=== PATIENT | male | born 1955 | race Caucasian/White ===

== ENCOUNTER 2020-05-16 10:40 | Inpatient (IN) ==
--- NOTE | 2020-04-18 14:32 | PAT Medication Instructions ---
Medication Instructions Date of Service April 18, 2020 Home Medications clopidogrel [Plavix] 75 mg PO QAM budesonide-formoterol [Symbicort] 2 puff INHALATION BID finasteride [Proscar] 5 mg PO QAM morphine 30 mg PO BID oxycodone 5 mg PO BID PRN sertraline [Zoloft] 200 mg PO QAM Spiriva with HandiHaler 1 cap INHALATION QAM albuterol sulfate 2.5 mg INHALATION QID PRN albuterol sulfate [Proventil HFA] 2 puff INHALATION Q6H PRN atorvastatin 80 mg PO QAM buspirone 10 mg PO BID ferrous sulfate 325 mg PO Q OTHER DAY omeprazole 20 mg PO QAM theophylline 400 mg PO BID carvedilol 12.5 mg PO BID epinephrine 0.3 mg IM UD PRN food supplemt, lactose-reduced [Ensure] 1 ea PO BID hydrochlorothiazide 25 mg PO QAM nitroglycerin 0.4 mg SUBLINGUAL UD PRN prednisone 40 mg PO UD PRN Continue as directed epinephrine 0.3 mg IM UD PRN (if needed) nitroglycerin 0.4 mg SUBLINGUAL UD PRN (if needed) ASK your prescriber and surgeon clopidogrel [Plavix] 75 mg PO QAM DO NOT take the morning of surgery ferrous sulfate 325 mg PO Q OTHER DAY food supplemt, lactose-reduced [Ensure] 1 ea PO BID hydrochlorothiazide 25 mg PO QAM theophylline 400 mg PO BID Take morning of surgery With a small sip of water, OTHERWISE NOTHING TO EAT OR DRINK AFTER MIDNIGHT: budesonide-formoterol [Symbicort] 2 puff INHALATION BID finasteride [Proscar] 5 mg PO QAM morphine 30 mg PO BID (okay to take up to 4 hours prior to surgery if needed) oxycodone 5 mg PO BID PRN (okay to take up to 4 hours prior to surgery if needed) sertraline [Zoloft] 200 mg PO QAM Spiriva with HandiHaler 1 cap INHALATION QAM albuterol sulfate 2.5 mg INHALATION QID PRN (if needed) albuterol sulfate [Proventil HFA] 2 puff INHALATION Q6H PRN (if needed) atorvastatin 80 mg PO QAM buspirone 10 mg PO BID omeprazole 20 mg PO QAM carvedilol 12.5 mg PO BID prednisone 40 mg PO UD PRN (if needed) Take evening before surgery budesonide-formoterol [Symbicort] 2 puff INHALATION BID morphine 30 mg PO BID oxycodone 5 mg PO BID PRN (if needed) albuterol sulfate 2.5 mg INHALATION QID PRN (if needed) albuterol sulfate [Proventil HFA] 2 puff INHALATION Q6H PRN (if needed) buspirone 10 mg PO BID theophylline 400 mg PO BID carvedilol 12.5 mg PO BID food supplemt, lactose-reduced [Ensure] 1 ea PO BID prednisone 40 mg PO UD PRN (if needed) Other Notes If you have any questions please call us at [phone] or [phone] or [phone] or [phone]
--- NOTE | 2020-04-21 11:00 | Anesthesiology Consultation ---
Date of Service April 21, 2020 Assessment & Plan (1) Encounter for pre-operative examination: Chart Review Chart Review: Acceptable Risk for Surgery (pending preop Covid testing ) and Patient seen in Pre Admission Testing Per PAT appt on 04/21/20, pt resides in [facility]. No recent travel. Educated patient to follow up with surgeon's office regarding Covid testing. Educated on importance of self quarantining, social distancing and wearing mask in public both for the patient and household contacts. Teaching & Discussion Pre-Anesthesia Teaching/Discussion Notes: Instructed NPO after midnight before surgery,except medications with 15 cc of water. Medication instructions provided according to the PAT guidelines. History Surgery Operation Date: 05/16/20 10:40 Proposed Procedures p Right Reverse Total Shoulder Arthroplasty - Rah Oglesby DO Height/Weight Height: 5 ft 6 in Weight: 66.9 kg Allergies Allergy/AdvReac Type Severity Reaction Status Date / Time NSAIDS (Non-Steroidal Allergy Intermediate Hives Verified 04/18/20 09:14 Anti-Inflamma aspirin Allergy Mild RASH,HIVES Verified 04/18/20 09:14 Medications Home Medications Medication Instructions Recorded Confirmed Last Taken clopidogrel [Plavix] 75 mg PO QAM #0 03/26/11 04/18/20 01/26/19 budesonide-formoterol [Symbicort] 2 puff INHALATION BID #0 inhaler 06/05/14 04/18/20 02/01/19 finasteride [Proscar] 5 mg PO QAM #0 tab 06/05/14 04/18/20 02/01/19 morphine 30 mg PO BID 30 Days #0 tab 06/04/15 04/18/20 Unknown oxycodone 5 mg PO BID PRN #0 06/04/15 04/18/20 Unknown sertraline [Zoloft] 200 mg PO QAM 90 Days #90 tab 06/04/15 04/18/20 02/01/19 Spiriva with HandiHaler 1 cap INHALATION QAM 30 Days #30 02/03/18 04/18/20 02/01/19 cap albuterol sulfate 2.5 mg INHALATION QID PRN #0 dose 02/03/18 04/18/20 Unknown albuterol sulfate [Proventil HFA] 2 puff INHALATION Q6H PRN 01/16/19 04/18/2019 atorvastatin 80 mg PO QAM 01/16/19 04/18/20 01/31/19 buspirone 10 mg PO BID 01/16/19 04/18/20 01/31/19 ferrous sulfate 325 mg PO Q OTHER DAY 01/16/19 04/18/20 01/31/19 omeprazole 20 mg PO QAM 01/16/19 04/18/20 02/01/19 theophylline 400 mg PO BID 01/16/19 04/18/20 02/01/19 carvedilol 12.5 mg PO BID 04/18/20 04/18/20 Unknown epinephrine 0.3 mg IM UD PRN 04/18/20 04/18/20 Unknown food supplemt, lactose-reduced 1 ea PO BID 04/18/20 04/18/20 Unknown [Ensure] hydrochlorothiazide 25 mg PO QAM 04/18/20 04/18/20 Unknown nitroglycerin 0.4 mg SUBLINGUAL UD PRN 04/18/20 04/18/20 Unknown prednisone 40 mg PO UD PRN 04/18/20 04/18/20 Unknown Past Medical History Medical History (Updated 04/21/20 @ 11:21 by VARGHESE TheodoreC) Anxiety and depression Aortic valve defect Had AVR secondary to AR per patient "HAS MINIMAL LEAKING FROM PROSTHETIC COW AORTIC VALVE" Asthma Well controlled - inhalers daily and prn BPH (benign prostatic hyperplasia) Chronic obstructive pulmonary disease Deep vein thrombosis RT ARM 2018 (TREATED WITH ELIQUIS)- on AC x 6 months- then d/c'ed- no issues since. Did follow with heme- no known clotting issues - felt secondary to A-port- A port removed. GERD (gastroesophageal reflux disease) Well controlled and stable Hearing deficit Hyperlipidemia Hypertension Immunoglobulin G deficiency infusions monthly Lung nodules Following with pulm- getting repeat CT to monitor nodules 07/2020. Pulmonary embolism DX IN 2009 PVD (peripheral vascular disease) S/p angioplasties. On Plavix- cannot tolerate ASA Sleep apnea No longer needs CPAP- was retested Exercise / Class Metabolic Activity III < 4 Walking/Shop/Light housework (one flight of stairs - no chest pain, mild SOB) Past Family History Family History Father Family history of diabetes mellitus Other No family history of adverse response to anesthesia Past Surgical History Surgical History (Updated 04/21/20 @ 10:57 by Pattie Beach PA-C) History of angioplasty LEs and hand History of aortic valve replacement 2009 @ [facility] "currently failing at 50%"--follows with Dr. Ji in [place] History of bronchoscopy History of cholecystectomy History of colonoscopy History of esophagogastroduodenoscopy (EGD) History of phacoemulsification of cataract of both eyes with intraocular lens implantation History of right inguinal hernia repair History of umbilical hernia repair History of vascular access device PORT INSERTION/REMOVAL (DOES NOT HAVE CURRENTLY) Past Anesthesia History No Hx of Anesthesia Complications and No Family Hx of Anesthesia Complications History of PONV No Hx of PONV and No Hx of Motion Sickness Social History Smoking Status: Former smoker Do You Dip or Chew Tobacco: No Smoking End Date: 2009 Hx Alcohol Use: No Hx Substance Use: No substance use type: does not use Review of Systems Patient denies chest pain, shortness of breath, dyspnea on mild exertion, cough, wheezing, palpitations. No hx of seizures, stroke, OH. No hx of blood clots or blood transfusions Physical Exam Vital Signs VITALS BP 130/66 P 60 TEMP 98.0 SP02 93% RESP 18 Constitutional no acute distress ENMT Mouth: no TMJ clicking Thyromental Distance: > or= 3.5 Finger Breadths (3.5) Mallampati Class: II Full set dentures upper and lower Neck neck extension not limited Respiratory normal respiratory effort; no respiratory distress Auscultation: lungs clear to auscultation bilaterally, + diminished lung sounds (throughout ) and + wheezes (mild/throughout/expiratory ) Cardiovascular Rate/Rhythm: regular rate and regular rhythm Heart Sounds: + murmur (III/ systolic ) Vessels: no carotid bruit Musculoskeletal Spine: no pain with cervical ROM Neurologic moves all extremities Psychiatric Orientation: alert Testing Laboratory Results 04/21/20 11:10 04/21/20 11:10 PT 10.1 Seconds (9.0-12.0) 04/21/20 11:10 INR 1.0 (0.9-1.1) 04/21/20 11:10 APTT 26.0 Seconds (21.0-31.0) 04/21/20 11:10 Blood Type O Positive 04/21/20 11:10 Antibody Screen NEGATIVE 04/21/20 11:10 Electrocardiogram Date: 04/21/20 Findings: + SB @ (59) LAFB, RBBB. Compared to EKG from April 28, 2018- no significant change per cardio. Chest X-Ray Date: 04/21/20 Findings: + NAD Emphysematous change with no active disease in the chest. Echocardiogram Date: 08/16/19 Bioprosthetic aortic valve. Prosthetic aortic valve is well-seated. No redundant suture material (reported on TTE at L2 98) was seen on the study. There are 2 paravalvular jets of AR1 trace in 1 trace to mild. The confluence and LVOT gives impression of more severe AR. Overall AR severity not more than mild. ZAIDA by plannimetry was 1.6 cm. Overall normal functioning aortic prosthesis. Pulmonary venous flow indicative of normal LV myocardial compliance. Stress Test Date: 04/19/19 Stress EKG non diagnostic. Based on nuclear imaging there is inferior wall ischemia. Study is moderately abnormal (pt has subsequent cardiac catherization) Cardiac Catheterization Date: 05/15/19 LM=no significant disease LAD= 30% Cx= mild luminal irregularities RCA= 30% Assessment- mild nonobstructive CAD. Recommended medical therapy for prevention. Other Testing Chest CT 02/12/20= diffuse emphysematous changes redemonstrated in both lungs. Stable appearing micronodules redemonstrated in both lungs. Pleural-parenchymal fibronodular densities present to the left lingula, new finding. It may be related to inflammation/infection. Three-month follow-up is recommended. Focal fiber nodule density demonstrated the base of the left lingula, no change. Persistent pleuroparenchymal fibrosis scattered in the left retrocardiac area and at both lung bases. Hilar lymph node calcifications redemonstrated. Coronary artery calcifications.
--- NOTE | 2020-04-21 11:54 | XRay Report ---
TWO VIEW CHEST CLINICAL HISTORY: Preoperative examination. FINDINGS: PA and lateral chest radiographs are compared to chest x-ray and chest CT dated 04/28/2018. The patient is status post midline sternotomy and cardiac valve surgery. The heart is top normal for projection noting atherosclerotic calcification of the thoracic aorta. Emphysema and chronic intersti tial thickening are similar to previous. There is mild bibasilar scarring/atelectasis. No airspace co nsolidation or pleural effusion is identified. There is no pneumothorax. The skeletal structures appe ar osteopenic. The bony thorax appears intact. IMPRESSION: Emphysematous change with no active disease in the chest. ACT 112: Negative or not required by law. Electronically signed by: Rc Hitchcock M.D. 04/21/2020 11:53 AM
[2020-04-21 12:27] LABS: Basophils # (auto) 0.04 K/uL (0-0.2); Basophils % (auto) 0.8 %; Eosinophils # (auto) 0.21 K/uL (0-0.5); Eosinophils % (auto) 4.1 %; Hematocrit (blood only) 35.3 % (42-52); Hemoglobin 11.7 g/dL (14.0-18.0); Immature Granulocytes # (auto) 0.02 K/uL (0.00-0.02); Immature Granulocytes % (auto) 0.4 %; Lymphocytes # (auto) 0.58 K/uL (1.2-3.4); Lymphocytes % (auto) 11.4 %; Mean Corpuscular Hemoglobin 28.5 pg (25-34); Mean Corpuscular Hgb Conc 33.1 g/dL (32-36); Mean Corpuscular Volume 86.1 fL (80-100); Mean Platelet Volume 9.7 fL (7.4-10.4); Monocytes # (auto) 0.74 K/uL (0.11-0.59); Monocytes % (auto) 14.5 %; Neutrophils % (auto) 68.8 %; Platelet Count 257 K/uL (130-400); RDW Coefficient of Variation 15.7 % (11.5-14.5); RDW Standard Deviation 49.7 fL (36.4-46.3); White Blood Count 5.09 K/uL (4.8-10.8)
[2020-04-21 12:42] LABS: Partial Thromboplastin Ratio 0.9; Prothrombin Time 10.1 Seconds (9.0-12.0)
[2020-04-21 12:50] LABS: BUN Creatinine Ratio 23.1 (10-20); Calcium 9.8 mg/dl (8.5-10.1); Creatinine Clr Calc Pharmacy 86.3 ml/min; Est GFR (African American) 110.4; Est GFR (Non-African American) 95.2; Potassium 4.6 mmol/L (3.5-5.1)
--- NOTE | 2020-04-21 15:15 | Electrocardiogram Report ---
Test Reason : Blood Pressure : / mmHG Vent. Rate : 059 BPM Atrial Rate : 059 BPM P-R Int : 142 ms QRS Dur : 122 ms QT Int : 472 ms P-R-T Axes : 026 -69 041 degrees QTc Int : 467 ms Sinus bradycardia Left anterior fascicular block Right bundle branch block Abnormal ECG When compared with ECG of 28-APR-2018 11:33, No significant change was found Confirmed by Frandy Dominguez ([id number]) on 04/21/2020 3:15:03 PM Referred By: Rah Oglesby Confirmed By:Frandy Dominguez
--- NOTE | 2020-05-15 07:03 | History & Physical Report ---
Date of Service May 15, 2020 Assessment & Plan (1) Rotator cuff arthropathy of right shoulder: We will proceed with a right reverse shoulder arthroplasty. Postoperatively he will be placed in an arm sling and started back up on his Plavix. We will keep him overnight in the hospital for postoperative medical management. He plans to use home nursing agency set up through the [facility] upon discharge. Present on Admission?: Yes History of Present Illness Chief Complaint: Rotator cuff arthropathy of the right shoulder Primary Care Provider: Fanny Franks Wild is a pleasant 64-year-old male has been having a 2-year history of right shoulder pain and weakness. He initially fell 2 years ago. Is been treating it conservatively but is been getting much worse. It hurts him all the time. He is unable to do any activities above chest level. 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 After failing conservative treatment, he has elected to proceed with a right reverse shoulder arthroplasty. Allergies Allergy/AdvReac Type Severity Reaction Status Date / Time NSAIDS (Non-Steroidal Allergy Intermediate Hives Verified 04/18/20 09:14 Anti-Inflamma aspirin Allergy Mild RASH,HIVES Verified 04/18/20 09:14 Home Medications Home Medications Medication Instructions Recorded Confirmed Type clopidogrel [Plavix] 75 mg PO QAM #0 03/26/11 04/18/20 History budesonide-formoterol [Symbicort] 2 puff INHALATION BID #0 inhaler 06/05/14 04/18/20 History finasteride [Proscar] 5 mg PO QAM #0 tab 06/05/14 04/18/20 History morphine 30 mg PO BID 30 Days #0 tab 06/04/15 04/18/20 History oxycodone 5 mg PO BID PRN #0 06/04/15 04/18/20 History sertraline [Zoloft] 200 mg PO QAM 90 Days #90 tab 06/04/15 04/18/20 History Spiriva with HandiHaler 1 cap INHALATION QAM 30 Days #30 02/03/18 04/18/20 History cap albuterol sulfate 2.5 mg INHALATION QID PRN #0 dose 02/03/18 04/18/20 History albuterol sulfate [Proventil HFA] 2 puff INHALATION Q6H PRN 01/16/19 04/18/20 History atorvastatin 80 mg PO QAM 01/16/19 04/18/20 History buspirone 10 mg PO BID 01/16/19 04/18/20 History ferrous sulfate 325 mg PO Q OTHER DAY 01/16/19 04/18/20 History omeprazole 20 mg PO QAM 01/16/19 04/18/20 History theophylline 400 mg PO BID 01/16/19 04/18/20 History carvedilol 12.5 mg PO BID 04/18/20 04/18/20 History epinephrine 0.3 mg IM UD PRN 04/18/20 04/18/20 History food supplemt, lactose-reduced 1 ea PO BID 04/18/20 04/18/20 History [Ensure] hydrochlorothiazide 25 mg PO QAM 04/18/20 04/18/20 History nitroglycerin 0.4 mg SUBLINGUAL UD PRN 04/18/20 04/18/20 History prednisone 40 mg PO UD PRN 04/18/20 04/18/20 History Past Med/Surg History Medical History Anxiety and depression Aortic valve defect Had AVR secondary to AR per patient "HAS MINIMAL LEAKING FROM PROSTHETIC COW AORTIC VALVE" Asthma Well controlled - inhalers daily and prn BPH (benign prostatic hyperplasia) Chronic obstructive pulmonary disease Deep vein thrombosis RT ARM 2018 (TREATED WITH ELIQUIS)- on AC x 6 months- then d/c'ed- no issues since. Did follow with heme- no known clotting issues - felt secondary to A-port- A port removed. GERD (gastroesophageal reflux disease) Well controlled and stable Hearing deficit Hyperlipidemia Hypertension Immunoglobulin G deficiency infusions monthly Lung nodules Following with pulm- getting repeat CT to monitor nodules 07/2020. Pulmonary embolism DX IN 2009 PVD (peripheral vascular disease) S/p angioplasties. On Plavix- cannot tolerate ASA Sleep apnea No longer needs CPAP- was retested Surgical History History of angioplasty LEs and hand History of aortic valve replacement 2009 @ [facility] "currently failing at 50%"--follows with Dr. Ji in [place] History of bronchoscopy History of cholecystectomy History of colonoscopy History of esophagogastroduodenoscopy (EGD) History of phacoemulsification of cataract of both eyes with intraocular lens implantation History of right inguinal hernia repair History of umbilical hernia repair History of vascular access device PORT INSERTION/REMOVAL (DOES NOT HAVE CURRENTLY) Family History Father Family history of diabetes mellitus Other No family history of adverse response to anesthesia Social History Smoking Status: Former smoker Second Hand Exposure: Yes (parents smoked); Hx Alcohol Use: No Hx Substance Use: No Preferred Language: Bruneian Communication Ability: Effective 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 Purifier Operator Required: No Beliefs That Will Affect Care: None Current Living Situation: Spouse and Family Current Living Situation Comment: Lives with and son Feels Safe at Home: Yes Review of Systems Review of Systems: All systems reviewed & are unremarkable except as noted in HPI & below Physical Exam Constitutional: WD/WN, vitals as above Eyes: PERRL, conjunctivae normal, anicteric sclerae ENMT: external ear and nose normal, oropharynx normal Neck: trachea midline, no thyromegaly Respiratory: normal respiratory effort Cardiovascular: RRR, no murmur, no edema Gastrointestinal (Abdomen): normal bowel sounds, soft, nontender, no hepatosplenomegaly Musculoskeletal: Physical examination of the right shoulder reveals decreased range of motion and significant weakness. There is tenderness palpation along the anterior glenohumeral joint line. The right upper extremity is neurovascularly intact. Psychiatric: A+Ox3, euthymic affect Results & Data Results & Data ([facility]) Diagnostic Findings Radiographs of the right shoulder show some signs of osteoarthritis with blunting of the greater tuberosity and some superior migration of the humeral head on the glenoid. PG Care Time/CCT Total # of Minutes Spent Total Time Spent with Patient: Total time spent is greater than 50% in coor dination of care (as documented) at patient's floor/unit and/or counseling patient: Coding Level of Care Code 84934 Initial Inpt Care Lvl 2 Diagnoses Rotator cuff arthropathy of right shoulder M12.811
[~2020-05-16 10:40] MED LIST: ACETAMINOPHEN 500 MG TAB PO SCH; BUPIVACAINE 0.5 % 5 MG/1 ML PF 10ML VIAL ONE; CEFAZOLIN 2000MG 2,000 MG/15 ML SYR IV SCH; FAMOTIDINE 20 MG TAB PO SCH; GABAPENTIN 300 MG CAP PO SCH; LR 15ML/HR IV SCH; LR 60ML/HR IV SCH; ROPIVACAINE 0.5% HCL/PF 150 MG, BUPIVACAINE 0.5% MPF 30 ML, EPINEPHrine 30MG/30ML (OR U... INFIL SCH; TRANEXAMIC ACID 1,000 MG **IV Intra-op IV SCH; TRANEXAMIC ACID 1,000 MG **IV Pre-op IV SCH; [UNRECOGNIZED DRUG - REMARK] SCH; dexAMETHasone 4 MG TAB PO SCH
--- NOTE | 2020-05-16 10:53 | History & Physical Bridge Note ---
Date of Service May 16, 2020 History & Physical Bridge Note I have examined the patient, reviewed the History & Physical and in the interval since the performance of the History & Physical I have noted the following changes of clinical significance: no changes noted
[2020-05-16] MEDS ORDERED: fentaNYL citrate 100 MCG/2 ML VIAL ONE (10:56)
[2020-05-16] MEDS ORDERED: MIDAZOLAM HCL 1 MG/ML 2ML VIAL ONE (10:56)
[2020-05-16] MEDS ORDERED: ORTHO JOINT ANESTHETIC ONE (11:44)
[2020-05-16] MEDS ORDERED: BUPIVACAINE 0.25% 30 ML VIAL ONE (12:35)
[2020-05-16] MEDS ORDERED: ATROPINE SULFATE 0.1 MG/ML 10ML SYR IV PRN (12:36)
[2020-05-16] MEDS ORDERED: ePHEDrine sulfate 50 MG/ML AMP IV PRN (12:36)
[2020-05-16] MEDS ORDERED: PROMETHAZINE HCL 6.25 MG in SODIUM CHLORIDE 0.9% 50 ML IV PRN (12:36)
[2020-05-16] MEDS ORDERED: ONDANSETRON INJ 2 MG/ML 2 ML VIAL IV PRN ×2 (12:36→15:56)
[2020-05-16] MEDS ORDERED: fentaNYL citrate 100 MCG/2 ML VIAL IV PRN (12:36)
[2020-05-16] MEDS ORDERED: GLYCOPYRROLATE 0.2 MG/ML VIAL ONE (13:46)
[2020-05-16] MEDS ORDERED: ePHEDrine sulfate 50 MG/ML SYR ONE (13:46)
[2020-05-16] MEDS ORDERED: ONDANSETRON INJ 2 MG/ML 2 ML VIAL ONE (13:46)
[2020-05-16] MEDS ORDERED: PROPOFOL IV EMULSION 10 MG/ML 20 ML VIAL IV ONE (13:46)
[2020-05-16] MEDS ORDERED: NEOSTIGMINE METHYLSULFATE 5 MG/5 ML SYR ONE (13:46)
[2020-05-16] MEDS ORDERED: ROCURONIUM BROMIDE 10 MG/ML 5 ML VIAL IV ONE (13:46)
--- NOTE | 2020-05-16 14:07 | Operative Report ---
PG Post Operative Report Pre & Post Diagnosis Operation Date: 05/16/20 13:00 Pre-Op Diagnosis: Rotator cuff arthropathy of the right shoulder with tendinopathy of the long head of the biceps tendon Post-Op Diagnosis: Rotator cuff arthropathy of the right shoulder with tendinopathy of the long head of the biceps tendon I identified the patient and participated in the time-out.: Yes Procedure Operation Date: 05/16/20 13:00 Actual Procedures p Right Reverse Total Shoulder Arthroplasty with open biceps tenodesis as a distinct and separate procedure (modifier 59) (Right) - Rah Oglesby DO Surgeon Rah Oglesby DO Crowd Controller Rah Holden PAC Estimated Blood Loss 250 Findings Consistent with Post-Op Diagnosis Specimens Right humeral head Complications none Disposition Disposition: Recovery Room Indications Wild is a pleasant 64-year-old male who initially injured his shoulder about 2 years ago. He saw a different orthopedist at that time who MRI of his shoulder and showed a chronic retracted rotator cuff tear. He told him he would need a reverse shoulder replacement. He was able to live with the shoulder for the past 2 years. Unfortunately is gotten much worse. Current x-rays show superior migration of the humeral head on the glenoid. After failing conservative treatment, he has elected to proceed with a right reverse shoulder arthroplasty. Description of Procedure A CPT code modifier 59: The long head of the biceps tendon was enlarged and inflamed consistent with tendinopathy. A tenodesis was opted. This was a separate and distinct portion of the procedure. For these reasons, a CPT code modifier 59 will be added to this case. Implants used: I used a Biomet Comprehensive reverse total shoulder arthroplasty system with a size 13 press fit micro humeral stem, a +6 humeral tray and a standard humeral bearing, a 25 mm small augment baseplate with a 6.5 mm central screw and superior and inferior locking screws, and a size 40 mm eccentric glenosphere. Wild arrived at [facility] for the above procedure. He was seen in the preoperative holding area and the operative extremity was identified and signed. He was given a preoperative antibiotic, TXA, and an interscalene nerve block. He was taken back to the operating room, laid on table in supine position, and put under general anesthesia. He was then put into the beachchair position. The shoulder was then prepped and draped in sterile fashion. A timeout was done and the patient and the operative extremity was properly identified. A deltopectoral approach was used. Dissection was taken down through the fascia and the deltoid was retracted laterally and the conjoined tendon was retracted medially. The anterior shoulder was exposed. The biceps groove was opened up and the biceps tendon was examined extensively. The biceps tendon demonstrated enlargement and inflammatory changes consistent with longstanding inflammation in the context of osteoarthritis and cuff arthropathy. The long head of the biceps tendon was then tenodesed to the upper border of the pectoralis major. This was a separate and distinct portion of the procedure. The subscapularis was then directly released off the lesser tuberosity with a peel technique. The inferior capsule was released and the humeral head was dislocated. A canal finding reamer was sent down the center of the humeral canal. Sequential reaming up to a size 13 reamer was done. Off that reamer, a proximal humeral resection guide was placed. The proximal humerus was resected at 135 of inclination and 25 of retroversion. Osteophytes were then removed and the glenoid was exposed. Time was spent doing a complete capsular and labral release. The glenoid guide was then placed in the inferior aspect of the glenoid. A 3.2 mm Steinmann pin was then placed into the glenoid vault at 10 of inclination. The glenoid baseplate was then reamed. The final size 25 mm small augment baseplate was then impacted in the place. A 6.5 mm central screw was then placed followed by superior and inferior locking screws. A 40 mm eccentric glenosphere was then impacted into place. Surrounding soft tissues were then injected with 100 cc an orthopedic pain control cocktail. The proximal humerus was then exposed. Sequential broaching of the humerus up to a size 13 broach was done. Off that broach a +6 humeral tray was trialed. The shoulder was then reduced, brought through a full range of motion, and felt to be stable. The shoulder was then dislocated and the broach was removed. The final size 13 micro press-fit humeral stem was then impacted into place. A standard humeral bearing was then snapped onto a +6 humeral tray. The humeral tray was then impacted onto the humeral stem. The shoulder was once again reduced, brought through a full range of motion, and felt to be stable. The subscapularis was then tenodesed back to the lesser tuberosity with transosseous FiberWire sutures and side to side sutures with the arm in 45 of external rotation. A dilute betadyne lavage was then done for 3 minutes. The joint was then irrigated with normal saline solution. Hemostasis was obtained. The interval was closed with 2-0 Vicryl suture. The skin was then closed with 2-0 Vicryl and wali. A Silverlon dressing was placed and the arm was rested in a regular arm sling. He was then extubated and transferred to a hospital bed. He taken to the postanesthesia care unit in stable condition. He tolerated the procedure well. Rah Holden PA-C, was present for the entire procedure. He was critical for patient positioning, prepping, draping, retraction exposure, wound closure and application of sterile dressing. I attest to the content of the Intraoperative Record and any orders documented therein. Any exceptions are noted below.
--- NOTE | 2020-05-16 15:05 | XRay Report ---
XR shoulder RT min 2V routine CLINICAL HISTORY: Post shoulder surgery COMPARISON: Right shoulder radiographs February 03, 2018. FINDINGS: Alignment of the right shoulder arthroplasty is anatomic. There is no periprosthetic fract ure or unexpected radiopaque foreign body. There are skin wali. IMPRESSION: Expected findings following right shoulder arthroplasty. ACT 112: Negative or not required by law. Electronically signed by: Ghulam Franco M.D. 05/16/2020 3:03 PM
--- NOTE | 2020-05-16 15:06 | Anesthesiology Progress Note ---
Date of Service May 16, 2020 Anesthesia Post Procedure Vital Signs Vital Signs: Temp Pulse Pulse Resp BP Pulse Ox 05/16/20 15:00 72 13 155/73 H 98 05/16/20 14:50 81 13 170/81 H 95 05/16/20 14:40 80 14 169/87 H 100 05/16/20 14:30 36.1 C L 86 14 179/86 H 100 05/16/20 11:06 36.6 C 70 20 161/87 H 95 Transfer of Care Handoff Completed per policy Notes Mental Status: alert / awake / arousable Patient Amnestic to Procedure: Yes Nausea / Vomiting: adequately controlled Pain: adequately controlled Airway Patency, RR, SpO2: stable & adequate BP & HR: stable & adequate Hydration State: stable & adequate Anesthetic Complications: no major complications apparent Notes: block working well in pacu
[2020-05-16] MEDS ORDERED: ALBUTEROL HFA 8 GM INHALER INH PRN (15:56)
[2020-05-16] MEDS ORDERED: METOCLOPRAMIDE HCL INJ 5 MG/ML 2 ML VIAL IV PRN (15:56)
[2020-05-16] MEDS ORDERED: MAGNESIUM HYDROXIDE SUSP 30 ML UDC PO PRN (15:56)
[2020-05-16] MEDS ORDERED: NALOXONE HCL 0.4 MG/1 ML VIAL/CARP IV PRN (15:56)
[2020-05-16] MEDS ORDERED: predniSONE 20 MG TAB PO PRN (15:56)
[2020-05-16] MEDS ORDERED: NITROGLYCERIN SL 0.4 MG/TAB TAB SL PRN (15:56)
[2020-05-16] MEDS ORDERED: HYDROmorphone INJ 0.5 MG/0.5 ML SYR IV PRN (15:56)
[2020-05-16] MEDS ORDERED: OXYCODONE HCL IR 5 MG TAB (IMMEDIATE RELEASE) PO PRN (15:56)
[2020-05-16] MEDS ORDERED: EPINEPHRINE 0.3 MG IM PRN (15:56)
[2020-05-16] MEDS ORDERED: bisacodyL 10 MG SUPP PR PRN (15:56)
[2020-05-16] MEDS: ALBUTEROL 0.083% NEBU SOLN 3 ML VIAL INH PRN ×2 (16:40→19:49)
[2020-05-16] MEDS: SODIUM CHLORIDE 0.9% 1000ML 1,000 ML IV SCH (16:59)
[2020-05-16] MEDS: CEFAZOLIN 2000MG 2,000 MG/15 ML SYR IV SCH (20:40)
[2020-05-16] MEDS: THEOPHYLLINE 400 MG EXTENDED REL TAB PO SCH (20:48)
[2020-05-16] MEDS: carvediloL 12.5 MG TAB PO SCH (20:48)
[2020-05-16] MEDS: DOCUSATE SODIUM 100 MG CAP PO SCH (20:48)
[2020-05-16] MEDS ORDERED: SENNA 8.6 MG TAB PO SCH (21:00)
[2020-05-16] MEDS: ACETAMINOPHEN 500 MG TAB PO SCH (21:10)
[2020-05-17] MEDS: CEFAZOLIN 2000MG 2,000 MG/15 ML SYR IV SCH (03:11)
[2020-05-17] MEDS: SODIUM CHLORIDE 0.9% 1000ML 1,000 ML IV SCH (03:15)
[2020-05-17] MEDS: ALBUTEROL 0.083% NEBU SOLN 3 ML VIAL INH PRN (03:20)
[2020-05-17] MEDS: ACETAMINOPHEN 500 MG TAB PO SCH (06:00)
[2020-05-17 07:09] LABS: Basophils # (auto) 0.01 K/uL (0-0.2); Basophils % (auto) 0.1 %; Hematocrit (blood only) 31.4 % (42-52); Hemoglobin 10.5 g/dL (14.0-18.0); Immature Granulocytes # (auto) 0.02 K/uL (0.00-0.02); Immature Granulocytes % (auto) 0.3 %; Lymphocytes # (auto) 0.48 K/uL (1.2-3.4); Lymphocytes % (auto) 6.4 %; Mean Corpuscular Hemoglobin 28.5 pg (25-34); Mean Corpuscular Hgb Conc 33.4 g/dL (32-36); Mean Corpuscular Volume 85.3 fL (80-100); Mean Platelet Volume 9.1 fL (7.4-10.4); Monocytes # (auto) 0.78 K/uL (0.11-0.59); Monocytes % (auto) 10.4 %; Neutrophils # (auto) 6.23 K/uL (1.4-6.5); Neutrophils % (auto) 82.8 %; Platelet Count 204 K/uL (130-400); RDW Coefficient of Variation 15.4 % (11.5-14.5); RDW Standard Deviation 47.7 fL (36.4-46.3); Red Blood Count 3.68 M/uL (4.7-6.1); White Blood Count 7.52 K/uL (4.8-10.8)
[2020-05-17 07:21] VITALS: BP 124/66; TEMP 98.1; O2SAT 95
--- NOTE | 2020-05-17 07:29 | Orthopedic Progress Note ---
Date of Service May 17, 2020 Assessment & Plan (1) Status post reverse arthroplasty of right shoulder: Overall he is doing very well. He is not having any pain in the right shoulder. He will be seen by physical therapy this morning for ambulation and range of motion exercises. He can be discharged home later today. He will follow-up with orthopedics in 2 weeks. Present on Admission?: Yes Admission and Anticipated Discharge Date Admission Date: May 16, 2020 Tyler Rome was seen and examined at bedside this morning. Overall he is doing very well. Is not having any pain in the right shoulder. He was able to get some sleep last night. He has no complaints. Physical Exam Musculoskeletal: On physical examination of the right shoulder, the Silverlon dressing is clean and dry. He is wearing his sling as instructed. His radial, median, and ulnar nerves are checked intact at his wrist. Results & Data ([facility]) Vital Signs (Past 12 Hours) Vital Signs Temp Pulse Resp BP Pulse Ox 05/17/20 07:20 36.7 C 61 16 124/66 95 05/17/20 03:20 72 18 94 05/17/20 03:15 95 05/17/20 02:59 36.6 C 73 18 119/67 90 05/16/20 23:34 36.8 C 85 16 131/69 94 05/16/20 20:47 79 150/69 H 05/16/20 19:49 77 18 93 Laboratory Results H & H 04/21/20 05/17/20 Range/Units 11:10 06:55 Hgb 11.7 L 10.5 L (14.0-18.0) g/dL Hct 35.3 L 31.4 L (42-52) % Coagulation 04/21/20 Range/Units 11:10 INR 1.0 (0.9-1.1) Diagnostic Findings Postoperative x-rays of the right shoulder show the prosthesis to be in anatomic alignment without any evidence of fracture, dislocation, or loosening. PG Care Time/CCT Total # of Minutes Spent Total Time Spent with Patient: Total time spent is greater than 50% in coordination of care (as documented) at patient's floor/unit and/or counseling patient: Coding Level of Care Code None Diagnoses Status post reverse arthroplasty of right shoulder Z96.611
--- NOTE | 2020-05-17 07:31 | Discharge Summary ---
Date of Service May 17, 2020 Admission HPI Per Admitting Provider Wild is a pleasant 64-year-old male has been having a 2-year history of right shoulder pain and weakness. He initially fell 2 years ago. Is been treating it conservatively but is been getting much worse. It hurts him all the time. He is unable to do any activities above chest level. 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 After failing conservative treatment, he has elected to proceed with a right reverse shoulder arthroplasty. Principal Diagnosis Right reverse shoulder replacement Discharge Data Allergies Allergy/AdvReac Type Severity Reaction Status Date / Time NSAIDS (Non-Steroidal Allergy Intermediate Hives Verified 05/16/20 10:57 Anti-Inflamma aspirin Allergy Mild RASH,HIVES Verified 05/16/20 10:57 Consultations 05/16/20 15:56 Consult Case Management - Discharge Planning Routine Procedures Performed Operation Date: 05/16/20 13:00 Actual Procedures p Right Reverse Total Shoulder Arthroplasty(Right) - Rah Oglesby DO Ordered Studies 05/16/20 05:00 US - OR guided needle placemen Routine Hospital Course (1) Status post reverse arthroplasty of right shoulder: On May 16, 2020 Wild arrived at [facility] and underwent a right reverse shoulder replacement without complication. He had a general anesthetic and a right interscalene nerve block. Postoperatively he was placed in a sling and transferred to the general orthopedic floors. His hospital course was uneventful. On postop day #1 his H&H was stable and his pain was well controlled. He was able to participate well with physical therapy doing ambulation and range of motion exercises. He was then discharged home. He will follow-up with orthopedics in 2 weeks. Total Time Total Time Spent Total Time Spent (In Minutes): 20 Discharge Plan Discharge Items Patient Disposition: Home - Home Health Services Reason For Visit: DJD Right Shoulder Discharge Diagnosis: Right reverse shoulder replacement Activity: As commented below Non-emergency contact: Surgeon Call non-emergency contact if: your wound has increased redness and your wound has increased drainage Follow-up/Referrals: Fanny Franks PA-C [Primary Care Provider] - Diet: Regular Addtl Attending Provider Instructions: Activity and Therapy Recommendations: * If you are using [facility] then therapy will be provided at your home until they feel you have accomplished all of your goals. * If you are using [facility] then Physical Therapy will be provided until they feel you are ready to start Outpatient Physical Therapy. * If you are not using home therapy then Outpatient Physical Therapy should start about 3-5 days from your day of surgery. Therapy will last about 8-12 weeks * Wear your sling for 3 weeks, unless otherwise instructed. You may remove your sling to shower and to dress, but otherwise, you should be in your sling at all times, including while sleeping * The shoulder replacement is very stable and you can use your hand while in the sling * You were shown a series of exercises in the hospital. Do these exercises daily including the exercises you were shown in physical therapy. Medications: * Narcotic You will likely be sent home from the hospital with a prescription for the narcotic pain medication that worked best throughout your stay. * Other medications may be prescribed for specific circumstances. If you have any questions, please call the office at . * Resume previous home medications unless otherwise instructed Dressing Care: Leave the Silverlon dressing in place for 7 days. After 7 days you may remove the dressing. If the incision is not draining then you may leave the wali open to air. If there is a little bit of drainage or if the wali are getting stuck on your clothing then cover the incision with a dry dressing. The wali will be removed at your 2 week follow-up appointment. Showering: You may shower with the Silverlon dressing in place. Do not let the shower spray hit the dressing directly. Pat the Silverlon dressing dry. If the dressing becomes wet underneath, then simply remove the dressing. Keep the incision dry until you are 7 days out from the day of surgery. After 7 days you may remove the Silverlon dressing and shower with the wali exposed. Let soapy water run over the wali and pat them dry. Do not scrub or soak the incision. Things To Watch For: * Drainage from the incision site that occurs more than one week after your surgery. * Increased redness at the incision site. * Fever above 102 degrees Fahrenheit. * Unusual chest pain or shortness of breath. * Call [facility] at with any of the above problems Follow-Up Visit: Follow-up with Dr. Oglesby's PA (Rah Holden) 2-3 weeks after your day of surgery. He will remove your wali and answer any questions. If you have any additional questions or concerns, Dr Oglesby is usually in the office at the same time and will be available An appointment was probably scheduled when you signed-up for surgery in the office. If you have any questions call More detailed instructions as well as Frequently Asked Questions were provided in a folder by our office when you signed-up for surgery. Please review these instructions when you get home. If you have any further questions or concerns, please feel free to call the office at [phone] Pending Studies at Discharge: No Stand-Alone Forms: My [facility] [employer], Smoking Cessation Medications and DC Order Prescriptions: Continued clopidogrel [Plavix] 75 mg Tablet 75 mg PO QAM Qty: 0 RF: 0 finasteride [Proscar] 5 mg Tablet 5 mg PO QAM Qty: 0 RF: 0 budesonide-formoterol [Symbicort] 160-4.5 mcg/actuation Hfa Aerosol Inhaler 2 puff INHALATION BID Qty: 0 RF: 0 sertraline [Zoloft] 100 mg Tablet 200 mg PO QAM 90 Days Qty: 90 RF: 1 morphine 30 mg Tablet 30 mg PO BID 30 Days Qty: 0 RF: 0 oxycodone 5 mg Tablet 5 mg PO BID PRN (Reason: Pain) Qty: 0 RF: 0 albuterol sulfate 2.5 mg /3 mL (0.083 %) Solution For Nebulization 2.5 mg INHALATION QID PRN (Reason: Wheezing) Qty: 0 RF: 0 Spiriva with HandiHaler 18 mcg Capsule, W/Inhalation Device 1 cap INHALATION QAM 30 Days Qty: 30 RF: 3 carvedilol 25 mg Tablet 12.5 mg PO BID RF: 0 prednisone 20 mg Tablet 40 mg PO UD PRN (Reason: LUNG PROBLEMS) RF: 0 nitroglycerin 0.4 mg Tablet, Sublingual 0.4 mg sublingual UD PRN (Reason: Chest Pain) RF: 0 hydrochlorothiazide 25 mg Tablet 25 mg PO QAM RF: 0 Ensure Liquid 1 ea PO BID RF: 0 epinephrine 0.3 mg/0.3 mL Syringe 0.3 mg IM UD PRN (Reason: Allergic Reaction) RF: 0 theophylline 400 mg Tablet Extended Release 24 Hr 400 mg PO BID RF: 0 buspirone 10 mg Tablet 10 mg PO BID RF: 0 albuterol sulfate [Proventil HFA] 90 mcg/actuation Hfa Aerosol Inhaler 2 puff INHALATION Q6H PRN (Reason: Shortness Of Breath) RF: 0 atorvastatin 80 mg Tablet 80 mg PO QAM RF: 0 ferrous sulfate 325 mg (65 mg iron) Tablet 325 mg PO Q OTHER DAY RF: 0 omeprazole 20 mg Tablet,Delayed Release (Dr/Ec) 20 mg PO QAM RF: 0 Discharge Orders: Discharge Order (Routine); Ordered 05/17/20 Ordered By: Rah Oglesby Admission Data Admit Date/Time: 05/16/20 14:23 Attending Provider: Rah Oglesby Admit Provider: Rha Oglesby Primary Care Provider: Fanny Franks Coding Level of Care Code D/C Day Management <30 mins Diagnoses Status post reverse arthroplasty of right shoulder Z96.611
[2020-05-17 07:33] LABS: BUN Creatinine Ratio 25.5 (10-20); Calcium 7.8 mg/dl (8.5-10.1); Creatinine Clr Calc Pharmacy 89.8 ml/min; Est GFR (African American) 112.2; Est GFR (Non-African American) 96.8; Potassium 4.3 mmol/L (3.5-5.1)
[2020-05-17] MEDS ORDERED: dexAMETHasone 4 MG TAB PO SCH (08:00)
[2020-05-17 08:02] VITALS: PULSE 73
[2020-05-17] MEDS ORDERED: MULTIVITAMIN TAB PO SCH (09:00)
[2020-05-17] MEDS ORDERED: UMECLIDINIUM BROMIDE 62.5MCG/BLISTER 7 PUFFS/INHALER INH SCH (09:00)
[2020-05-17] MEDS ORDERED: ATORVASTATIN 40 MG TAB PO SCH (09:00)
[2020-05-17] MEDS ORDERED: SERTRALINE HCL 100 MG TABLET PO SCH (09:00)
[2020-05-17] MEDS ORDERED: PANTOprazole 40 MG TAB PO SCH (09:00)
[2020-05-17] MEDS ORDERED: FLUTICASONE/VILANTEROL 100/25MCG 14 PUFFS/INHALER INH SCH (09:00)
[2020-05-17] MEDS ORDERED: FINASTERIDE 5 MG TAB PO SCH (09:00)
[2020-05-17] MEDS ORDERED: CLOPIDOGREL BISULFATE 75 MG TAB PO SCH (09:00)
[2020-05-17] MEDS ORDERED: hydroCHLOROthiazide 25 MG TAB PO SCH (09:00)
[2020-05-17] MEDS ORDERED: FERROUS SULFATE 325 MG TAB PO SCH (09:00)
[2020-05-17] MEDS: DOCUSATE SODIUM 100 MG CAP PO SCH (09:22)
[2020-05-17] MEDS: THEOPHYLLINE 400 MG EXTENDED REL TAB PO SCH (09:22)
[2020-05-17] MEDS: carvediloL 12.5 MG TAB PO SCH (09:22)
== END 2020-05-17 10:53 | disposition home or self-care (01) | DRG 483 ==
LOC: ASU 10:40 → 3E 14:23

== ENCOUNTER 2020-05-19 05:46 | Inpatient (IN) ==
[2020-05-19] MEDS ORDERED: ONDANSETRON 4 MG OD TAB ONE (06:02)
[2020-05-19] MEDS ORDERED: ACETAMINOPHEN 500 MG TAB PO STA (06:25)
[2020-05-19] MEDS ORDERED: ALBUT/IPRATROP 3MG/0.5MG NEB 3 ML VIAL NEB STA (06:25)
[2020-05-19] MEDS ORDERED: PIPERACILL/TAZOBAC CONSULT ACTIVE PRN ×2 (06:29→10:06)
[2020-05-19] MEDS ORDERED: PIPERACILLIN/TAZOBACTAM 4.5 GM/120 ML BAG IV ONE (06:29)
[2020-05-19 06:36] LABS: Basophils # (auto) 0.02 K/uL (0-0.2); Basophils % (auto) 0.3 %; Eosinophils # (auto) 0.06 K/uL (0-0.5); Eosinophils % (auto) 0.9 %; Hematocrit (blood only) 34.3 % (42-52); Hemoglobin 11.3 g/dL (14.0-18.0); Immature Granulocytes # (auto) 0.02 K/uL (0.00-0.02); Immature Granulocytes % (auto) 0.3 %; Lymphocytes # (auto) 0.63 K/uL (1.2-3.4); Lymphocytes % (auto) 9.7 %; Mean Corpuscular Hemoglobin 28.7 pg (25-34); Mean Corpuscular Hgb Conc 32.9 g/dL (32-36); Mean Corpuscular Volume 87.1 fL (80-100); Mean Platelet Volume 9.3 fL (7.4-10.4); Monocytes % (auto) 3.1 %; Neutrophils # (auto) 5.57 K/uL (1.4-6.5); Neutrophils % (auto) 85.7 %; Platelet Count 229 K/uL (130-400); RDW Coefficient of Variation 15.6 % (11.5-14.5); RDW Standard Deviation 50.1 fL (36.4-46.3); Red Blood Count 3.94 M/uL (4.7-6.1)
[2020-05-19 06:54] LABS: Albumin Level 3.2 gm/dl (3.4-5.0); BUN Creatinine Ratio 17.6 (10-20); Calcium 8.2 mg/dl (8.5-10.1); Est GFR (African American) 108.1; Est GFR (Non-African American) 93.3; Magnesium 2.2 mg/dl (1.8-2.4)
--- NOTE | 2020-05-19 07:00 | XRay Report ---
XR chest 1V portable CLINICAL HISTORY: Dyspnea COMPARISON STUDY: April 21, 2020 FINDINGS: The heart is normal in size. There is underlying emphysema. There are postsurgical changes of midline sternotomy. There are right lower lobe airspace opacity suspicious for pneumonia. Films hutson bsequent to treatment are recommended in follow-up.[ IMPRESSION: Right lower lobe airspace opacity suspicious for pneumonia. Films subsequent to treatment are recommended in follow-up. ACT 112: Negative or not required by law. Electronically signed by: Cain Jenkins M.D. 05/19/2020 6:59 AM
[2020-05-19 07:01] LABS: Albumin Globulin Ratio 0.8 (0.9-2); Bilirubin,Total 0.6 mg/dl (0.2-1); Globulin 4.1 gm/dl (2.5-4.0); Total Protein 7.3 gm/dl (6.4-8.2); Troponin I 0.177 ng/ml (0-0.045)
[2020-05-19 07:02] LABS: INR 0.9 (0.9-1.1); Partial Thromboplastin Ratio 0.8; Partial Thromboplastin Time 23.4 Seconds (21.0-31.0); Prothrombin Time 9.8 Seconds (9.0-12.0)
[2020-05-19] MEDS ORDERED: DEXAMETHASONE SOD INJ 10 MG/ML VIAL IV ONE (07:04)
[2020-05-19 07:05] LABS: D Dimer 2240 ug/L FEU (0-500)
--- NOTE | 2020-05-19 07:19 | Emergency Department Note ---
Impression & Plan Hypoxia, Right lower lobe pneumonia, Non-ST elevation AL (NSTEMI) ED Provider Note NAME: BRENDA ALLEN AGE: 64 SEX: M ARRIVES VIA: Ambulance INFORMANT: Patient, EMS ED PROVIDER(S): Tiesha Del Angel DO CHIEF COMPLAINT: Shortness of breath PLAN: Disposition: Admitted to the [facility] Condition: Stable MEDICAL DECISION MAKING: This is a 64-year-old male patient who presents to the emergency department with a very sudden onset of shortness of breath that woke him from sleep. The patient underwent a shoulder surgery just 2 days ago. Patient has a history of COPD. She saturation upon EMS arrival was in the mid 70s. He was only able to maintain 90% on 6 L by nasal cannula. The patient was switched to BiPAP. He tolerated this well. The patient was febrile on presentation. Septic protocol was performed. He had an obvious right lower lobe pneumonia. The patient was treated with Decadron, DuoNeb and Zosyn. Patient had a d-dimer greater than 2000. He has a history of a previous DVT and previously had been on anticoagulation. He went for CT to rule out PE. This was negative. The patient remained hemodynamically stable. [facility] for [facility] management. Triage Nursing notes reviewed and agree them. Additional history obtained from EMS Prior medical records reviewed Vital Signs: reviewed and remarkable for hypoxia Differential diagnosis: PE, congestive heart failure, pneumonia, COPD exacerbation, COVID-19 ER treatment provided: IV Zosyn, IV Decadron, DuoNeb, oral Tylenol Diagnostics interpreted by me: ECG: Sinus tachycardia at a rate of 106 with T wave inversions in leads I, aVL, V1 and V2. There is mild ST segment elevation in the inferior and lateral leads in comparison to her preoperative EKG done from 2 weeks ago. Cardiac Monitoring: Sinus tachycardia at a rate of 112 Laboratory studies: See below Imaging studies: As per my interpretation Chest x-ray: Right lower lobe infiltrate with some mild pulmonary vascular congestion HPI: 64/M arrives for evaluation of sudden onset of shortness of breath. The patient awoke from sleep feeling very short of breath. He states that he had been feeling well over the past couple of days. He did undergo shoulder surgery just a couple of days ago with Dr. Oglesby. He has been doing well postoperatively. He does have a history of COPD and has had episodes of shortness of breath in the past but nothing like this as he describes it. ROS: See above HPI for pertinent positives & negatives. A total of 10 systems reviewed and were otherwise negative. PAST MEDICAL HISTORY:See Below PAST SURGICAL HISTORY:See Below FAMILY HISTORY:See Below SOCIAL HISTORY:See Below HOME MEDICATIONS:See list ALLERGIES:See list VITALS:See Below PHYSICAL EXAMINATION: HEENT: Head - normocephalic and atraumatic Pupils are equal, round, and reactive to light. Extraocular eye muscles are intact, and sclera are anicteric. Nose - moist nasal mucosa without discharge. Mouth - moist buccal mucosa. Oropharynx is nonerythematous and there is no tonsillar exudate or edema noted. Neck: Supple; no JVD, nuchal rigidity, cervical lymphadenopathy, or auscultated bruits. Heart: Tachycardic rate and rhythm. There is a normal S1 and S2 with no murmurs, clicks, or gallops appreciated. Lungs: Manage breath sounds in all lung trimble with wheezes throughout. Abdomen: Soft, completely nontender, nondistended, with good bowel sounds. There are no palpable pulsatile masses or hepatosplenomegaly. There is no guarding, rigidity, or rebound noted. Extremities: Specialized bandage on the right shoulder with limited range of motion secondary to recent surgery. Skin: warm and diaphoretic with good turgor and no rashes. ED COURSE: The patient was quickly examined in room A1. The patient was extremely tachypneic and hypoxic without supplemental oxygen. He was maintaining oxygen saturations at 90% on 6 L by nasal cannula. An IV lock was finally initiated and labs were drawn. A twelve-lead EKG was obtained. Order was placed for continuous cardiac monitoring. He was in a sinus tachycardia at 102. Patient remained somewhat hypoxic and was switched from a nasal cannula to BiPAP. Patient was febrile and had a septic protocol performed. He was given a gram of Tylenol by mouth. The patient received a DuoNeb treatment through the BiPAP circuitry. The patient was given 10 mg of IV Decadron and started on a Zosyn drip. I have personally spent greater than 75 minutes of critical care time in the direct management of this patient. This includes bedside care, interpretation of diagnostic studies, and testing, discussion with consultants, patient, and family members, and other required patient management activities. This 75 minutes is in excess of all separately billable procedures. Tiesha Del Angel DO Past Med/Surg History Medical History (Updated 05/19/20 @ 19:07 by Tiesha Del Angel DO) Anxiety and depression Aortic valve defect Had AVR secondary to AR per patient "HAS MINIMAL LEAKING FROM PROSTHETIC COW AORTIC VALVE" Asthma Well controlled - inhalers daily and prn BPH (benign prostatic hyperplasia) Chronic obstructive pulmonary disease Deep vein thrombosis RT ARM 2018 (TREATED WITH ELIQUIS)- on AC x 6 months- then d/c'ed- no issues since. Did follow with heme- no known clotting issues - felt secondary to A-port- A port removed. GERD (gastroesophageal reflux disease) Well controlled and stable Hearing deficit Hyperlipidemia Hypertension Immunoglobulin G deficiency infusions monthly Lung nodules Following with pulm- getting repeat CT to monitor nodules 07/2020. Pulmonary embolism DX IN 2009 PVD (peripheral vascular disease) S/p angioplasties. On Plavix- cannot tolerate ASA Sleep apnea No longer needs CPAP- was retested Surgical History (Updated 05/16/20 @ 14:07 by Rah Oglesby DO) History of angioplasty LEs and hand History of aortic valve replacement 2009 @ [facility] "currently failing at 50%"--follows with Dr. Ji in [place] History of bronchoscopy History of cholecystectomy History of colonoscopy History of esophagogastroduodenoscopy (EGD) History of phacoemulsification of cataract of both eyes with intraocular lens implantation History of right inguinal hernia repair History of umbilical hernia repair History of vascular access device PORT INSERTION/REMOVAL (DOES NOT HAVE CURRENTLY) Status post reverse arthroplasty of right shoulder (~04/2020) Family History Father Family history of diabetes mellitus Other No family history of adverse response to anesthesia Social History Smoking Status: Former smoker Tobacco Type: Cigarettes Second Hand Exposure: Yes (parents smoked); Hx Alcohol Use: No Hx Substance Use: No Preferred Language: Citizen Of [place] Communication Ability: Effective 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 Beliefs That Will Affect Care: None marital status: Current Living Situation: Spouse and Family Current Living Situation Comment: Lives with and son Other Information That Helps Us Care for You: No Feels Safe at Home: Yes Safety Concerns: Feels Safe At This Time Assistive Devices: Denture - Upper, Denture - Lower, Glasses, Hearing Aid - Bilateral and Oxygen - Continuous Allergies Allergies Allergy/AdvReac Type Severity Reaction Status Date / Time NSAIDS (Non-Steroidal Allergy Intermediate Hives Verified 05/19/20 06:18 Anti-Inflamma aspirin Allergy Mild RASH,HIVES Verified 05/19/20 06:18 Home Meds Home Medications Medication Instructions Recorded Confirmed clopidogrel [Plavix] 75 mg PO QAM #0 03/26/11 05/19/20 budesonide-formoterol [Symbicort] 2 puff INHALATION BID #0 inhaler 06/05/14 05/19/20 finasteride [Proscar] 5 mg PO QAM #0 tab 06/05/14 05/19/20 morphine 30 mg PO BID 30 Days #0 tab 06/04/15 05/19/20 oxycodone 5 mg PO BID PRN #0 06/04/15 05/19/20 sertraline [Zoloft] 200 mg PO QAM 90 Days #90 tab 06/04/15 05/19/20 Spiriva with HandiHaler 1 cap INHALATION QAM 30 Days #30 02/03/18 05/19/20 cap albuterol sulfate 2.5 mg INHALATION QID PRN #0 dose 02/03/18 05/19/20 albuterol sulfate [Proventil HFA] 2 puff INHALATION Q6H PRN 01/16/19 05/19/20 atorvastatin 80 mg PO QAM 01/16/19 05/19/20 buspirone 10 mg PO BID 01/16/19 05/19/20 ferrous sulfate 325 mg PO Q OTHER DAY 01/16/19 05/19/20 omeprazole 20 mg PO QAM 01/16/19 05/19/20 theophylline 400 mg PO BID 01/16/19 05/19/20 Ensure 1 ea PO BID 04/18/20 05/19/20 carvedilol 12.5 mg PO BID 04/18/20 05/19/20 epinephrine 0.3 mg IM UD PRN 04/18/20 05/19/20 hydrochlorothiazide 25 mg PO QAM 04/18/20 05/19/20 nitroglycerin 0.4 mg SUBLINGUAL UD PRN 04/18/20 05/19/20 prednisone 40 mg PO UD PRN 04/18/20 05/19/20 Results & Data (ED) Vital Signs Vital Signs - 24 hr 05/19/20 05:46 05/19/20 05:52 05/19/20 06:00 Temperature 38.6 C H Temperature Source Oral Pulse Rate 102 H 107 H 101 H Pulse Rate [Right Finger] Pulse Rate from SpO2 Sensor 100 H Respiratory Rate 24 21 20 Respiratory Effort / Characteristics Labored Respiratory Depth Respiratory Pattern Blood Pressure 188/103 H Blood Pressure Mean 131 Pulse Oximetry 93 92 Oxygen Delivery Method Nasal Cannula Nasal Cannula Oxygen Flow Rate 4 4 Fraction of Inspired Oxygen Sepsis Recent Fever Within 48 Hours Yes Sepsis New/Unexplained Change in Mental Status No Sepsis Action Taken by Nursing Physician Notified Oxygen Flow Rate - Titration 6 Fraction of Inspired Oxygen - Titration Pulse Oximetry Post Tiitration 94 05/19/20 06:15 05/19/20 06:20 05/19/20 06:26 Temperature Temperature Source Pulse Rate 101 H 103 H 102 H Pulse Rate [Right Finger] Pulse Rate from SpO2 Sensor 101 H 102 H Respiratory Rate 18 18 16 Respiratory Effort / Characteristics Spontaneous Moaning Respiratory Depth Normal Respiratory Pattern Regular Blood Pressure 131/89 Blood Pressure Mean 100 Pulse Oximetry 97 98 Oxygen Delivery Method BiPAP BiPAP Oxygen Flow Rate Fraction of Inspired Oxygen 60 60 Sepsis Recent Fever Within 48 Hours Sepsis New/Unexplained Change in Mental Status Sepsis Action Taken by Nursing Oxygen Flow Rate - Titration Fraction of Inspired Oxygen - Titration 60 Pulse Oximetry Post Tiitration 98 05/19/20 06:28 05/19/20 06:30 05/19/20 06:45 Temperature Temperature Source Pulse Rate 99 H 101 H Pulse Rate [Right Finger] 103 H Pulse Rate from SpO2 Sensor 99 H Respiratory Rate 16 18 16 Respiratory Effort / Characteristics Non-Labored Spontaneous Respiratory Depth Respiratory Pattern Blood Pressure 140/77 132/80 Blood Pressure Mean 93 99 Pulse Oximetry 97 97 97 Oxygen Delivery Method BiPAP BiPAP BiPAP Oxygen Flow Rate Fraction of Inspired Oxygen 60 60 60 Sepsis Recent Fever Within 48 Hours Sepsis New/Unexplained Change in Mental Status Sepsis Action Taken by Nursing Oxygen Flow Rate - Titration Fraction of Inspired Oxygen - Titration Pulse Oximetry Post Tiitration 05/19/20 07:00 05/19/20 07:01 05/19/20 07:15 Temperature Temperature Source Pulse Rate 97 H 97 H 96 H Pulse Rate [Right Finger] Pulse Rate from SpO2 Sensor 98 H 97 H 96 H Respiratory Rate 15 12 15 Respiratory Effort / Characteristics Respiratory Depth Respiratory Pattern Blood Pressure 109/73 116/70 Blood Pressure Mean 90 87 Pulse Oximetry 98 98 98 Oxygen Delivery Method Oxygen Flow Rate Fraction of Inspired Oxygen Sepsis Recent Fever Within 48 Hours Sepsis New/Unexplained Change in Mental Status Sepsis Action Taken by Nursing Oxygen Flow Rate - Titration Fraction of Inspired Oxygen - Titration Pulse Oximetry Post Tiitration 05/19/20 07:16 05/19/20 07:42 05/19/20 07:45 Temperature Temperature Source Pulse Rate 100 H 99 H 95 H Pulse Rate [Right Finger] Pulse Rate from SpO2 Sensor 101 H 96 H Respiratory Rate 15 16 15 Respiratory Effort / Characteristics Respiratory Depth Respiratory Pattern Blood Pressure Blood Pressure Mean Pulse Oximetry 98 88 L Oxygen Delivery Method Oxygen Flow Rate Fraction of Inspired Oxygen Sepsis Recent Fever Within 48 Hours Sepsis New/Unexplained Change in Mental Status Sepsis Action Taken by Nursing Oxygen Flow Rate - Titration Fraction of Inspired Oxygen - Titration Pulse Oximetry Post Tiitration 05/19/20 07:46 05/19/20 07:58 Temperature 38.4 C H Temperature Source Oral Pulse Rate 90 Pulse Rate [Right Finger] Pulse Rate from SpO2 Sensor 90 Respiratory Rate 16 Respiratory Effort / Characteristics Respiratory Depth Respiratory Pattern Blood Pressure 109/57 L Blood Pressure Mean 78 Pulse Oximetry 97 Oxygen Delivery Method Oxygen Flow Rate Fraction of Inspired Oxygen Sepsis Recent Fever Within 48 Hours Sepsis New/Unexplained Change in Mental Status Sepsis Action Taken by Nursing Oxygen Flow Rate - Titration Fraction of Inspired Oxygen - Titration Pulse Oximetry Post Tiitration Laboratory Data Result diagrams: 05/19/20 06:24 05/19/20 06:24 Lab Results 05/19/20 05/19/20 05/19/20 Range/Units 06:24 06:24 06:24 WBC 6.50 (4.8-10.8) K/uL RBC 3.94 L (4.7-6.1) M/uL Hgb 11.3 L (14.0-18.0) g/dL Hct 34.3 L (42-52) % MCV 87.1 (80-100) fL MCH 28.7 (25-34) pg MCHC 32.9 (32-36) g/dL RDW Std Deviation 50.1 H (36.4-46.3) fL RDW Coeff of Rosario 15.6 H (11.5-14.5) % Plt Count 229 (130-400) K/uL MPV 9.3 (7.4-10.4) fL Immature Gran % (Auto) 0.3 % Neut % (Auto) 85.7 % Lymph % (Auto) 9.7 % [place] % (Auto) 3.1 % Eos % (Auto) 0.9 % Baso % (Auto) 0.3 % Neut # (Auto) 5.57 (1.4-6.5) K/uL Lymph # (Auto) 0.63 L (1.2-3.4) K/uL [place] # (Auto) 0.20 (0.11-0.59) K/uL Eos # (Auto) 0.06 (0-0.5) K/uL Baso # (Auto) 0.02 (0-0.2) K/uL Immature Gran # (Auto) 0.02 (0.00-0.02) K/uL PT 9.8 (9.0-12.0) Seconds INR 0.9 (0.9-1.1) APTT 23.4 (21.0-31.0) Seconds PTT Ratio 0.8 D-Dimer 2240 H* (0-500) ug/L FEU Sodium 137 (136-145) mmol/L Potassium 4.0 (3.5-5.1) mmol/L Chloride 101 (98-107) mmol/L Carbon Dioxide 30 (21-32) mmol/L Anion Gap 6.0 (3-11) BUN 14 (7-18) mg/dl Creatinine 0.81 (0.6-1.4) mg/dl Est Cr Clr Drug Dosing 82.0 ml/min Est GFR ( Amer) 108.1 Est GFR (Non-Af Amer) 93.3 BUN/Creatinine Ratio 17.6 (10-20) Glucose 122 H (70-99) mg/dl Lactate (0.4-2.0) mmol/L Calcium 8.2 L (8.5-10.1) mg/dl Magnesium 2.2 (1.8-2.4) mg/dl Total Bilirubin 0.6 (0.2-1) mg/dl AST 34 (15-37) U/L ALT 19 (12-78) U/L Alkaline Phosphatase 86 (45-117) U/L Troponin I 0.177 H* (0-0.045) ng/ml NT-Pro-B Natriuret Pep 421 (0-900) pg/ml Total Protein 7.3 (6.4-8.2) gm/dl Albumin 3.2 L (3.4-5.0) gm/dl Globulin 4.1 H (2.5-4.0) gm/dl Albumin/Globulin Ratio 0.8 L (0.9-2) COVID-19 Eval Order COVID-19 PCR (Negative) 05/19/20 05/19/20 05/19/20 Range/Units 06:24 06:32 06:32 WBC (4.8-10.8) K/uL RBC (4.7-6.1) M/uL Hgb (14.0-18.0) g/dL Hct (42-52) % MCV (80-100) fL MCH (25-34) pg MCHC (32-36) g/dL RDW Std Deviation (36.4-46.3) fL RDW Coeff of Rosario (11.5-14.5) % Plt Count (130-400) K/uL MPV (7.4-10.4) fL Immature Gran % (Auto) % Neut % (Auto) % Lymph % (Auto) % [place] % (Auto) % Eos % (Auto) % Baso % (Auto) % Neut # (Auto) (1.4-6.5) K/uL Lymph # (Auto) (1.2-3.4) K/uL [place] # (Auto) (0.11-0.59) K/uL Eos # (Auto) (0-0.5) K/uL Baso # (Auto) (0-0.2) K/uL Immature Gran # (Auto) (0.00-0.02) K/uL PT (9.0-12.0) Seconds INR (0.9-1.1) APTT (21.0-31.0) Seconds PTT Ratio D-Dimer (0-500) ug/L FEU Sodium (136-145) mmol/L Potassium (3.5-5.1) mmol/L Chloride (98-107) mmol/L Carbon Dioxide (21-32) mmol/L Anion Gap (3-11) BUN (7-18) mg/dl Creatinine (0.6-1.4) mg/dl Est Cr Clr Drug Dosing ml/min Est GFR ( Amer) Est GFR (Non-Af Amer) BUN/Creatinine Ratio (10-20) Glucose (70-99) mg/dl Lactate 1.8 (0.4-2.0) mmol/L Calcium (8.5-10.1) mg/dl Magnesium (1.8-2.4) mg/dl Total Bilirubin (0.2-1) mg/dl AST (15-37) U/L ALT (12-78) U/L Alkaline Phosphatase (45-117) U/L Troponin I (0-0.045) ng/ml NT-Pro-B Natriuret Pep (0-900) pg/ml Total Protein (6.4-8.2) gm/dl Albumin (3.4-5.0) gm/dl Globulin (2.5-4.0) gm/dl Albumin/Globulin Ratio (0.9-2) COVID-19 Eval Order Covid19 Done at [facility] COVID-19 PCR NEGATIVE (Negative) Administered Medications Albuterol (Albut/Ipratrop 3mg/0.5mg Neb 3 Ml Vial) 3 ml NEB Q4R JERRY Stop: 06/18/20 10:59 Last Admin: 05/19/20 15:39 Dose: 3 ml Documented by: [id number] Admin: 05/19/20 11:42 Dose: 3 ml Documented by: [id number] Atorvastatin Calcium (Atorvastatin 40 Mg Tab) 80 mg PO QAM JERRY Stop: 06/18/20 10:05 Last Admin: 05/19/20 11:07 Dose: 80 mg Documented by: [id number] Benzonatate (Benzonatate 100 Mg Capsule) 100 mg PO TID JERRY Stop: 06/18/20 10:29 Last Admin: 05/19/20 13:11 Dose: 100 mg Documented by: [id number] Admin: 05/19/20 12:02 Dose: Not Given Documented by: [id number] Buspirone HCl (Buspirone 5 Mg Tab) 10 mg PO BID JERRY Stop: 06/18/20 10:29 Last Admin: 05/19/20 11:08 Dose: 10 mg Documented by: [id number] Carvedilol (Carvedilol 12.5 Mg Tab) 12.5 mg PO BID [facility] Stop: 06/18/20 10:29 Last Admin: 05/19/20 11:13 Dose: 12.5 mg Documented by: [id number] Clopidogrel Bisulfate (Clopidogrel Bisulfate 75 Mg Tab) 75 mg PO QAM [facility] Stop: 06/18/20 10:29 Last Admin: 05/19/20 11:09 Dose: 75 mg Documented by: [id number] Ferrous Sulfate (Ferrous Sulfate 325 Mg Tab) 325 mg PO Q2D@0900 [facility] Stop: 06/18/20 10:29 Last Admin: 05/19/20 11:08 Dose: 325 mg Documented by: [id number] Finasteride (Finasteride 5 Mg Tab) [facility] [place]: 06/18/20 10:29 Last Admin: 05/19/20 11:09 Dose: 5 mg Documented by: [id number] Fluticasone/Vilanterol (Fluticasone/Vilanterol 100/25mcg 14 Puffs/Inhaler) 1 puffs INH DAILY [facility] Stop: 06/18/20 10:59 Last Admin: 05/19/20 11:10 Dose: 1 puffs Documented by: [id number] Guaifenesin (Guaifenesin 600 Mg Tabcr) 1,200 mg PO Q12 [facility] Stop: 06/18/20 10:29 Last Admin: 05/19/20 11:08 Dose: 1,200 mg Documented by: [id number] Hydrochlorothiazide (Hydrochlorothiazide 25 Mg Tab) 25 mg PO QAM [facility] Stop: 06/18/20 10:29 Last Admin: 05/19/20 11:08 Dose: 25 mg Documented by: [id number] Piperacillin Sod/Tazobactam (Sod 3.375 gm/ Dextrose) 115 mls @ 28.75 mls/hr IV Q8H [facility]; Protocol Stop: 05/26/20 11:59 Last Infusion: 05/19/20 17:17 Dose: 0 mls/hr Documented by: [id number] Admin: 05/19/20 13:12 Dose: 28.8 mls/hr Documented by: [id number] Morphine Sulfate (Morphine Sulfate Cr 15 Mg Tabcr) 30 mg PO BID [facility] Stop: 06/02/20 10:59 Last Admin: 05/19/20 11:10 Dose: 30 mg Documented by: [id number] Prednisone (Prednisone 20 Mg Tab) 40 mg PO DAILY JERRY Stop: 06/18/20 10:29 Last Admin: 05/19/20 11:09 Dose: 40 mg Documented by: [id number] Sertraline HCl (Sertraline Hcl 100 Mg Tablet) 200 mg PO QAM [facility] Stop: 06/18/20 10:29 Last Admin: 05/19/20 11:09 Dose: 200 mg Documented by: [id number] Theophylline (Theophylline 400 Mg Extended Rel Tab) 400 mg PO BID JERRY Stop: 06/18/20 10:29 Last Admin: 05/19/20 11:09 Dose: 400 mg Documented by: [id number] Umeclidinium Sturdivant (Umeclidinium Stur[place] 62.5mcg/Blister 7 Puffs/Inhaler) 1 puffs INH QAM [facility] Stop: 06/18/20 10:29 Last Admin: 05/19/20 11:08 Dose: 1 puffs Documented by: [id number] Discontinued Medications Acetaminophen (Acetaminophen 500 Mg Tab) 1,000 mg PO NOW STA Stop: 05/19/20 06:26 Last Admin: 05/19/20 06:31 Dose: 1,000 mg Documented by: [id number] Albuterol (Albut/Ipratrop 3mg/0.5mg Neb 3 Ml Vial) 3 ml NEB NOW STA Stop: 05/19/20 06:26 Last Admin: 05/19/20 06:30 Dose: 3 ml Documented by: [id number] Dexamethasone (Dexamethasone Sod Inj 10 Mg/Ml Vial) 10 mg IV NOW ONE Stop: 05/19/20 07:05 Last Admin: 05/19/20 07:17 Dose: 10 mg Documented by: [id number] Piperacillin Sod/Tazobactam Sod (Zosyn) 4.5 gm in 120 mls @ 240 mls/hr IV NOW ONE Stop: 05/19/20 06:58 Last Infusion: 05/19/20 07:58 Dose: 0 mls/hr Documented by: [id number] Admin: 05/19/20 06:50 Dose: 240 mls/hr Documented by: [id number] Ioversol (Optiray 320 125ml) 121 ml IV ONCE ONE Stop: 05/19/20 07:31 Last Admin: 05/19/20 07:30 Dose: 121 ml Documented by: [id number] Ondansetron HCl (Ondansetron 4 Mg Od Tab) Confirm Administered Dose 4 mg .ROUTE .STK-MED ONE Stop: 05/19/20 06:03 Last Admin: 05/19/20 06:15 Dose: 4 mg Documented by: [id number] Discharge Plan Visit Data Chief Complaint: Respiratory Problems Stated Complaint: RESPIRATORY PROBLEMS ED Provider: Tiesha Del Angel Discharge Problem: Hypoxia, Right lower lobe pneumonia, Non-ST elevation AL (NSTEMI) Patient Disposition: Admitted As Inpatient Discharge Instructions Interventions: ED Discharge Assessment Last Done: 05/19/20 09:00 Discharge Problem: Right lower lobe pneumonia Qualifiers: Pneumonia type: due to unspecified organism Qualified Code(s): J18.9 - Pneumonia, unspecified organism
[2020-05-19] MEDS ORDERED: OPTIRAY 320 125ml IV ONE (07:30)
--- NOTE | 2020-05-19 07:51 | CT Scan Report ---
CT angio chest PE protocol CT DOSE: 595.82 mGycm HISTORY: 64 years-old Male with Dyspnea. Acute shortness of breath TECHNIQUE: Multiple CTA images of the chest were obtained after the intravenous administration of 121 ml Optiray 320. Coronal and sagittal MIPS were obtained from the axial data set and were submitted for review. All measurements were obtained according to NASCET criteria. A dose lowering technique w as utilized adhering to the principles of ALARA. COMPARISON: CTA of the chest 04/28/2018, 08/01/2010, right shoulder radiographs 05/16/2020. FINDINGS: CTA: Mild cardiomegaly. Prior median sternotomy with prosthetic aortic valve. There is at least moderate c oronary artery calcifications. No thoracic aortic aneurysm. Patency of the imaged great vessels. Pulm onary artery is dilated measuring 3.7 cm transversely. Respiratory motion artifact limits evaluation of the segmental and subsegmental branches. No filling defects are identified to suggest thromboembol ic disease. CT CHEST: Unremarkable thyroid. No adenopathy. Trace pleural effusions. No pneumothorax. Moderate to severe emp hysema. Right greater left bibasilar consolidative opacities. Minimal dependent consolidation is also noted within the right upper lobe. Bronchial wall thickening. No overt pulmonary edema. There are no suspicious pulmonary nodules or masses identified. Mild tracheobronchial secretions. Moderate generalized pancreatic atrophy. There is no acute process of the imaged upper abdomen. Limit ed exam secondary to right upper extremity positioning. There is deep tissue edema with joint effusio n and deep tissue air surrounding the right shoulder total joint arthroplasty with skin wali. No a cute fracture. The visualized hardware components appear intact. IMPRESSION: 1. Cardiomegaly with prior median sternotomy and prosthetic aortic valve. There is no evidence of pul monary thromboembolic disease. 2. Right lower lobe airspace opacities are suggestive of pneumonia versus aspiration pneumonitis. Min imal dependent opacities of the left lower lobe are suggestive of pneumonia. 3. Trace pleural effusions. 4. No adenopathy. 5. Emphysema. 6. Right shoulder total joint arthroplasty with expected postoperative changes. ACT 112: Negative or not required by law. The above report was generated using voice recognition software. It may contain grammatical, syntax o r spelling errors. Electronically signed by: Fabricio Chowdhury M.D. 05/19/2020 7:49 AM
--- NOTE | 2020-05-19 08:20 | History & Physical Report ---
Date of Service May 19, 2020 Assessment & Plan (1) Pneumonia: - Admit to [facility] - Patient has received 1 dose of dexamethasone 10 mg IV, will continue on steroids for now with history of COPD-prednisone 40 mg daily - Received 1 dose of IV Zosyn, continue - Sputum culture, mucinex, duonebs QID and Q2H prn, tessalon pearls - Wean O2 prn - COVID swab negative - WBC at time of admission = 6.5 - Tmax = 38.6 - CXR reviewed as above, CTA negative for PE - Troponin minimally elevated on admission at 0.177, d-dimer elevated, CTPE neg, and pt without any chest pain, likely secondary to infection. No need for further trop trend. (2) COPD (chronic obstructive pulmonary disease): -History of lung nodules, follows with pulmonology at the [facility] -History of sleep apnea no longer needs CPAP, will need to stop pulse ox prior to discharge to determine if requires O2. -Continue use of Spiriva, theophylline 400 mg BID, and albuterol as needed (3) Status post reverse arthroplasty of right shoulder: -Completed by Dr. Oglesby on 05/16 -Continue PT/OT -Continue pain control, bowel regimen -Question if the above pneumonia is secondary to post anesthesia aspiration? (4) History of aortic valve replacement: -Done in 2009, follows with cardiology through the [facility] -Continue carvedilol 12.5 mg BID, Plavix 75 mg daily, hydrochlorothiazide 25 mg qam (5) Hx of venous thrombosis and embolism: -DVT occurred in right arm 2018. Patient was previously treated with Eliquis, has been off x3 months. Did previously follow with hematology, no known clotting issues, felt secondary to a port and a port since been removed. -PE diagnosed in 2009 -CTA is negative (6) Hypertension: -Antihypertensives as above (7) Hyperlipidemia: -Continue atorvastatin (8) Bipolar disorder, unspecified: (9) Generalized anxiety disorder: (10) Severe recurrent major depression without psychotic features: -Continue sertraline 200 mg daily, BuSpar 10 mg [id number] (11) DVT prophylaxis: - teds, ambulatory CODE: DNR/DNI Dispo: From home, likely to remain in the hospital x 2 days. History of Present Illness Primary Care Provider: Fanny Franks This is a 64-year-old male with past medical history of COPD, aortic valve replacement, s/p reverse right shoulder arthroplasty done by Dr. Oglesby earlier this month, history of DVT was taken off of this 3 months ago, bipolar disorder, who presents with acute worsening shortness of breath. On presentation patient with T-max of 38.6. COVID is negative. Appears the patient has had several bouts of pneumonia in the past. Pt reports that he was admitted for R shoulder arthroplasty last Tuesday. He went home without any complaints or difficulty with breathing. He denies any recent sick contacts. Yesterday he felt more short of breath with exertion, and use nebulizers a few times with minimal improvement. Patient woke this morning with difficulty breathing. He previously had prescription for oxygen however [facility] did not qualify so therefore does not have access to this currently. He denies feeling feverish, no chills or sweats. Denies chest pain, chest tightness, palpitations. He admits to having a headache earlier however it is resolved at this point. He does have prednisone prescription at home for whenever his breathing gets bad, but did not take any at home. He did not take his morning medications. Patient lives at home with his . Allergies Allergy/AdvReac Type Severity Reaction Status Date / Time NSAIDS (Non-Steroidal Allergy Intermediate Hives Verified 05/19/20 06:18 Anti-Inflamma aspirin Allergy Mild RASH,HIVES Verified 05/19/20 06:18 Home Medications Home Medications Medication Instructions Recorded Confirmed Type clopidogrel [Plavix] 75 mg PO QAM #0 03/26/11 05/19/20 History budesonide-formoterol [Symbicort] 2 puff INHALATION BID #0 inhaler 06/05/14 05/19/20 History finasteride [Proscar] 5 mg PO QAM #0 tab 06/05/14 05/19/20 History morphine 30 mg PO BID 30 Days #0 tab 06/04/15 05/19/20 History oxycodone 5 mg PO BID PRN #0 06/04/15 05/19/20 History sertraline [Zoloft] 200 mg PO QAM 90 Days #90 tab 06/04/15 05/19/20 History Spiriva with HandiHaler 1 cap INHALATION QAM 30 Days #30 02/03/18 05/19/20 History cap albuterol sulfate 2.5 mg INHALATION QID PRN #0 dose 02/03/18 05/19/20 History albuterol sulfate [Proventil HFA] 2 puff INHALATION Q6H PRN 01/16/19 05/19/20 History atorvastatin 80 mg PO QAM 01/16/19 05/19/20 History buspirone 10 mg PO BID 01/16/19 05/19/20 History ferrous sulfate 325 mg PO Q OTHER DAY 01/16/19 05/19/20 History omeprazole 20 mg PO QAM 01/16/19 05/19/20 History theophylline 400 mg PO BID 01/16/19 05/19/20 History Ensure 1 ea PO BID 04/18/20 05/19/20 History carvedilol 12.5 mg PO BID 04/18/20 05/19/20 History epinephrine 0.3 mg IM UD PRN 04/18/20 05/19/20 History hydrochlorothiazide 25 mg PO QAM 04/18/20 05/19/20 History nitroglycerin 0.4 mg SUBLINGUAL UD PRN 04/18/20 05/19/20 History prednisone 40 mg PO UD PRN 04/18/20 05/19/20 History Past Med/Surg History Medical History (Updated 05/19/20 @ 08:19 by Luann French PA-C) Anxiety and depression Aortic valve defect Had AVR secondary to AR per patient "HAS MINIMAL LEAKING FROM PROSTHETIC COW AORTIC VALVE" Asthma Well controlled - inhalers daily and prn BPH (benign prostatic hyperplasia) Chronic obstructive pulmonary disease Deep vein thrombosis RT ARM 2018 (TREATED WITH ELIQUIS)- on AC x 6 months- then d/c'ed- no issues since. Did follow with heme- no known clotting issues - felt secondary to A-port- A port removed. GERD (gastroesophageal reflux disease) Well controlled and stable Hearing deficit Hyperlipidemia Hypertension Immunoglobulin G deficiency infusions monthly Lung nodules Following with pulm- getting repeat CT to monitor nodules 07/2020. Pulmonary embolism DX IN 2009 PVD (peripheral vascular disease) S/p angioplasties. On Plavix- cannot tolerate ASA Sleep apnea No longer needs CPAP- was retested Surgical History (Updated 05/16/20 @ 14:07 by Rah Oglesby DO) History of angioplasty LEs and hand History of aortic valve replacement 2009 @ [facility] "currently failing at 50%"--follows with Dr. Ji in [place] History of bronchoscopy History of cholecystectomy History of colonoscopy History of esophagogastroduodenoscopy (EGD) History of phacoemulsification of cataract of both eyes with intraocular lens implantation History of right inguinal hernia repair History of umbilical hernia repair History of vascular access device PORT INSERTION/REMOVAL (DOES NOT HAVE CURRENTLY) Status post reverse arthroplasty of right shoulder (~04/2020) Family History Father Family history of diabetes mellitus Other No family history of adverse response to anesthesia Social History Smoking Status: Former smoker Tobacco Type: Cigarettes Second Hand Exposure: Yes (parents smoked); Hx Alcohol Use: No Hx Substance Use: No Preferred Language: Kyrgyz Communication Ability: Effective Admission Nurse Required: No Beliefs That Will Affect Care: None marital status: Current Living Situation: Spouse and Family Current Living Situation Comment: Lives with and son Other Information That Helps Us Care for You: No Feels Safe at Home: Yes Safety Concerns: Feels Safe At This Time Assistive Devices: Denture - Upper, Denture - Lower, Glasses, Hearing Aid - Bilateral and Nebulizer Review of Systems Review of Systems: Constitutional: + Fever, no sweats or chills Eyes: No diplopia, no worsening or blurred vision ENT: normal hearing, no trouble swallowing Respiratory: As per HPI Cardiovascular: No chest pain, tightness or palpitations Abdomen: No pain, nausea, vomiting, diarrhea or constipation Musculoskeletal: + S/p R shoulder replacement, otherwise no joint pain, calf pain, swelling Neurologic: No weakness, numbness/tingling, or balance problems Psychiatric: + Anxiety and depression controlled on medication. Skin: No rash or itch Physical Exam Physical Exam: General: awake, alert, no apparent distress Head: Normocephalic, atraumatic ENT: PERRL, EOMI, no pharyngeal exudate, mucous membranes moist Chest: +barrel chested, +On OxiMax @ 8 L, + diffuse rales in RLL and RML as well as expiratory wheeze. Cardiac: Regular rate and rhythm, no murmur, no JVD, normal peripheral pulses, good capillary refill Abdominal: NABS x 4 quadrants, soft, nondistended, nontender to palpation, no rebound or guarding Extremities: Normal inspection, no peripheral edema or erythema, calfs nontender to palpation Psych: Normal mood and affect Neuro: AAO x 3, strength intact bilaterally and rated 5/5, no motor deficits, speech is clear, no peripheral sensory deficits Results & Data Results & Data ([facility]) Vital Signs (Past 12 Hours) Vital Signs Temp Pulse Pulse Resp BP Pulse Ox 05/19/20 07:58 38.4 C H 05/19/20 07:46 90 16 109/57 L 97 05/19/20 07:45 95 H 15 88 L 05/19/20 07:42 99 H 16 05/19/20 07:16 100 H 15 98 05/19/20 07:15 96 H 15 116/70 98 05/19/20 07:01 97 H 12 98 05/19/20 07:00 97 H 15 109/73 98 05/19/20 06:45 101 H 16 132/80 97 05/19/20 06:30 103 H 18 97 05/19/20 06:28 99 H 16 140/77 97 05/19/20 06:26 102 H 16 131/89 98 05/19/20 06:15 101 H 18 05/19/20 06:00 101 H 20 92 05/19/20 05:52 107 H 21 05/19/20 05:46 38.6 C H 102 H 24 188/[address] angio chest PE protocol CT DOSE: 595.82 mGycm HISTORY: 64 years-old Male with Dyspnea. Acute shortness of breath TECHNIQUE: Multiple CTA images of the chest were obtained after the intravenous administration of 121 ml Optiray 320. Coronal and sagittal MIPS were obtained from the axial data set and were submitted for review. All measurements were obtained according to NASCET criteria. A dose lowering technique was utilized adhering to the principles of ALARA. COMPARISON: CTA of the chest 04/28/2018, 08/01/2010, right shoulder radiographs 05/16/2020. FINDINGS: CTA: Mild cardiomegaly. Prior median sternotomy with prosthetic aortic valve. There is at least moderate coronary artery calcifications. No thoracic aortic aneurysm. Patency of the imaged great vessels. Pulmonary artery is dilated measuring 3.7 cm transversely. Respiratory motion artifact limits evaluation of the segmental and subsegmental branches. No filling defects are identified to suggest thromboembolic disease. CT CHEST: Unremarkable thyroid. No adenopathy. Trace pleural effusions. No pneumothorax. Moderate to severe emphysema. Right greater left bibasilar consolidative opacities. Minimal dependent consolidation is also noted within the right upper lobe. Bronchial wall thickening. No overt pulmonary edema. There are no suspicious pulmonary nodules or masses identified. Mild tracheobronchial secretions. Moderate generalized pancreatic atrophy. There is no acute process of the imaged upper abdomen. Limited exam secondary to right upper extremity positioning. There is deep tissue edema with joint effusion and deep tissue air surrounding the right shoulder total joint arthroplasty with skin wali. No acute fracture. The visualized hardware components appear intact. IMPRESSION: 1. Cardiomegaly with prior median sternotomy and prosthetic aortic valve. There is no evidence of pulmonary thromboembolic disease. 2. Right lower lobe airspace opacities are suggestive of pneumonia versus aspiration pneumonitis. Minimal dependent opacities of the left lower lobe are suggestive of pneumonia. 3. Trace pleural effusions. 4. No adenopathy. 5. Emphysema. 6. Right shoulder total joint arthroplasty with expected postoperative changes. XR chest 1V portable CLINICAL HISTORY: Dyspnea COMPARISON STUDY: April 21, 2020 FINDINGS: The heart is normal in size. There is underlying emphysema. There are postsurgical changes of midline sternotomy. There are right lower lobe airspace opacity suspicious for pneumonia. Films subsequent to treatment are recommended in follow-up.[ IMPRESSION: Right lower lobe airspace opacity suspicious for pneumonia. Films subsequent to treatment are recommended in follow-up. ECG Additional Comments: 5 19-MAY-2020 05:52:36 [facility]-EDSTAT ROUTINE RETRIEVAL Sinus tachycardia Left axis deviation Incomplete right bundle branch block Nonspecific ST abnormality Abnormal ECG When compared with ECG of 21-APR-2020 11:16, Vent. rate has increased BY [address] elevation now present in Lateral leads 25mm/s 10mm/mV 150Hz 9.0.9 12SL 241 POPPY: 10 Referred by: REFERRED SELF Unconfirmed Vent. rate 106 BPM SD interval 136 ms QRS duration 108 ms QT/QTc 328/435 ms P-R-T axes 32 -56 78 Code Status & VTE Plan Code Status DNR/DNI- discussed with the patient at bedside. Supervising Physician Co-Signing Physician Notes Patient was seen and examined independently I discussed the case with Jazmin Hernandez PAC I reviewed pertinent past medical social family history and also the plan of care and agree with the plan of care. Patient was seen after he arrived on the floor he was already feeling markedly improved he was on room air eating his late breakfast. He said expectorated a significant amount of sputum Review of systems finds a shortness of breath to be resolved chest pain also stop and present is no nausea vomiting diarrhea constipation Physical exam reviewing his vitals show improvement in his oxygenation his cardiac exam was regular there are no murmurs His right arm is in a sling there is Lidoderm patch on his shoulder His right lung have coarse rhonchi more worse at the base Possible healthcare associated pneumonia patient is on Zosyn therapy, guaifenesin and prednisone. He continues on his typical pulmonary medications Any exceptions will be noted below PG Care Time/CCT Total # of Minutes Spent Total Time Spent with Patient: Total time spent is greater than 50% in coordination of care (as documented) at patient's floor/unit and/or counseling patient: Coding Level of Care Code 36064 Initial Inpt Care Lvl 3 Diagnoses Pneumonia J18.9 COPD (chronic obstructive pulmonary disease) J44.9 Status post reverse arthroplasty of right shoulder Z96.611 History of aortic valve replacement Z95.2 Hx of venous thrombosis and embolism Z86.718 Hypertension I10 Hyperlipidemia E78.5 Bipolar disorder, unspecified F31.9 Generalized anxiety disorder F41.1 Severe recurrent major depression without psychotic features F33.2 DVT prophylaxis Z29.9
--- NOTE | 2020-05-19 09:35 | Electrocardiogram Report ---
Test Reason : Blood Pressure : / mmHG Vent. Rate : 106 BPM Atrial Rate : 106 BPM P-R Int : 136 ms QRS Dur : 108 ms QT Int : 328 ms P-R-T Axes : 032 -56 078 degrees QTc Int : 435 ms Sinus tachycardia Left axis deviation Incomplete right bundle branch block Nonspecific ST abnormality Abnormal ECG When compared with ECG of 21-APR-2020 11:16, Vent. rate has increased BY [address] elevation now present in Lateral leads Confirmed by Azeem Amor ([id number]) on 05/19/2020 9:34:24 AM Referred By: REFERRED SELF Confirmed By:Azeem Amor
[2020-05-19] MEDS ORDERED: ACETAMINOPHEN 325 MG TAB PO PRN (10:06)
[2020-05-19] MEDS ORDERED: NON-FORMULARY MEDICATION (Food Supplemt, Lactose-Reduced [Ensure] 1 EA) PO SCH (10:06)
[2020-05-19] MEDS ORDERED: NITROGLYCERIN SL 0.4 MG/TAB TAB SL PRN (10:06)
[2020-05-19] MEDS ORDERED: ONDANSETRON INJ 2 MG/ML 2 ML VIAL IV PRN (10:06)
[2020-05-19] MEDS ORDERED: oxyCODONE HCL IR 5 MG TAB (IMMEDIATE RELEASE) PO PRN (10:15)
[2020-05-19] MEDS ORDERED: FERROUS SULFATE 325 MG TAB PO SCH (10:30)
[2020-05-19] MEDS: ATORVASTATIN 40 MG TAB PO SCH (11:07)
[2020-05-19] MEDS: hydroCHLOROthiazide 25 MG TAB PO SCH (11:08)
[2020-05-19] MEDS: UMECLIDINIUM BROMIDE 62.5MCG/BLISTER 7 PUFFS/INHALER INH SCH (11:08)
[2020-05-19] MEDS: guaiFENesin 600 MG TABCR PO SCH ×2 (11:08→20:57)
[2020-05-19] MEDS: busPIRone 5 MG TAB PO SCH ×2 (11:08→20:57)
[2020-05-19] MEDS: THEOPHYLLINE 400 MG EXTENDED REL TAB PO SCH ×2 (11:09→20:58)
[2020-05-19] MEDS: SERTRALINE HCL 100 MG TABLET PO SCH (11:09)
[2020-05-19] MEDS: CLOPIDOGREL BISULFATE 75 MG TAB PO SCH (11:09)
[2020-05-19] MEDS: predniSONE 20 MG TAB PO SCH (11:09)
[2020-05-19] MEDS: FINASTERIDE 5 MG TAB PO SCH (11:09)
[2020-05-19] MEDS: FLUTICASONE/VILANTEROL 100/25MCG 14 PUFFS/INHALER INH SCH (11:10)
[2020-05-19] MEDS: MoRPHine SULFATE CR 15 MG TABCR PO SCH ×2 (11:10→20:55)
[2020-05-19] MEDS: carvediloL 12.5 MG TAB PO SCH ×2 (11:13→20:56)
[2020-05-19] MEDS: ALBUT/IPRATROP 3MG/0.5MG NEB 3 ML VIAL NEB SCH ×4 (11:42→23:09)
[2020-05-19] MEDS: BENZONATATE 100 MG CAPSULE PO SCH ×3 (12:02→20:56)
[2020-05-19 12:30] LABS: Appearance Urine Clear (Clear); Bilirubin Urine Negative (Negative); Blood Urine Negative (Negative); Color Urine Yellow; Glucose Urine UA Negative (Negative); Ketones Urine Negative (Negative); Leukocyte Esterase Urine Negative (Negative); Nitrite Urine Negative (Negative); Protein Urine Negative (Negative); Specific Gravity Urine > 1.045 (1.000-1.030); Urobilinogen Urine Negative (Negative)
[2020-05-19] MEDS: PIPERACILLIN/TAZOBACTAM 3.375 GM in DEXTROSE 5% 100 ML IV SCH ×2 (13:12→20:55)
[2020-05-20] MEDS: ALBUT/IPRATROP 3MG/0.5MG NEB 3 ML VIAL NEB SCH ×3 (02:29→11:06)
[2020-05-20] MEDS: PIPERACILLIN/TAZOBACTAM 3.375 GM in DEXTROSE 5% 100 ML IV SCH ×2 (04:33→13:50)
[2020-05-20 07:08] LABS: Hematocrit (blood only) 29.9 % (42-52); Hemoglobin 10.2 g/dL (14.0-18.0); Mean Corpuscular Hemoglobin 28.8 pg (25-34); Mean Corpuscular Hgb Conc 34.1 g/dL (32-36); Mean Corpuscular Volume 84.5 fL (80-100); Mean Platelet Volume 9.6 fL (7.4-10.4); Platelet Count 236 K/uL (130-400); RDW Coefficient of Variation 15.2 % (11.5-14.5); RDW Standard Deviation 47.5 fL (36.4-46.3); Red Blood Count 3.54 M/uL (4.7-6.1); White Blood Count 10.63 K/uL (4.8-10.8)
[2020-05-20 07:16] VITALS: TEMP 97.9
[2020-05-20 07:39] LABS: Albumin Level 2.5 gm/dl (3.4-5.0); BUN Creatinine Ratio 22.3 (10-20); Calcium 8.5 mg/dl (8.5-10.1); Creatinine Clr Calc Pharmacy 89.8 ml/min; Est GFR (African American) 112.2; Est GFR (Non-African American) 96.8
[2020-05-20 07:42] LABS: Albumin Globulin Ratio 0.6 (0.9-2); Bilirubin,Total 0.7 mg/dl (0.2-1); Globulin 4.1 gm/dl (2.5-4.0); Total Protein 6.6 gm/dl (6.4-8.2)
[2020-05-20] MEDS: FLUTICASONE/VILANTEROL 100/25MCG 14 PUFFS/INHALER INH SCH (08:34)
[2020-05-20] MEDS: carvediloL 12.5 MG TAB PO SCH (08:35)
[2020-05-20] MEDS: UMECLIDINIUM BROMIDE 62.5MCG/BLISTER 7 PUFFS/INHALER INH SCH (08:35)
[2020-05-20] MEDS: busPIRone 5 MG TAB PO SCH (08:35)
[2020-05-20] MEDS: hydroCHLOROthiazide 25 MG TAB PO SCH (08:35)
[2020-05-20] MEDS: THEOPHYLLINE 400 MG EXTENDED REL TAB PO SCH (08:36)
[2020-05-20] MEDS: guaiFENesin 600 MG TABCR PO SCH (08:36)
[2020-05-20] MEDS: CLOPIDOGREL BISULFATE 75 MG TAB PO SCH (08:36)
[2020-05-20] MEDS: FINASTERIDE 5 MG TAB PO SCH (08:36)
[2020-05-20] MEDS: MoRPHine SULFATE CR 15 MG TABCR PO SCH (08:36)
[2020-05-20] MEDS: ATORVASTATIN 40 MG TAB PO SCH (08:36)
[2020-05-20] MEDS: BENZONATATE 100 MG CAPSULE PO SCH (08:36)
[2020-05-20] MEDS: predniSONE 20 MG TAB PO SCH (08:36)
[2020-05-20] MEDS: SERTRALINE HCL 100 MG TABLET PO SCH (08:37)
[2020-05-20] MEDS ORDERED: PANTOprazole 40 MG TAB PO SCH (09:00)
[2020-05-20 11:08] VITALS: O2SAT 94
[2020-05-20 11:24] VITALS: BP 115/67; PULSE 54
--- NOTE | 2020-05-20 15:01 | Discharge Summary ---
Date of Service May 20, 2020 Admission HPI Per Admitting Provider This is a 64-year-old male with past medical history of COPD, aortic valve replacement, s/p reverse right shoulder arthroplasty done by Dr. Oglesby earlier this month, history of DVT was taken off of this 3 months ago, bipolar disorder, who presents with acute worsening shortness of breath. On presentation patient with T-max of 38.6. COVID is negative. Appears the patient has had several bouts of pneumonia in the past. Pt reports that he was admitted for R shoulder arthroplasty last Tuesday. He went home without any complaints or difficulty with breathing. He denies any recent sick contacts. Yesterday he felt more short of breath with exertion, and use nebulizers a few times with minimal improvement. Patient woke this morning with difficulty breathing. He previously had prescription for oxygen however [facility] and [facility] did not qualify so therefore does not have access to this currently. He denies feeling feverish, no chills or sweats. Denies chest pain, chest tightness, palpitations. He admits to having a headache earlier however it is resolved at this point. He does have prednisone prescription at home for whenever his breathing gets bad, but did not take any at home. He did not take his morning medications. Patient lives at home with his . Principal Diagnosis Acute on chronic respiratory failure with hypoxia Pneumonia Discharge Exam The patient appeared well Vital signs as documented. Lungs are clear poor air movement and prolonged expiratory phase but no focal loss or rales Abdominal exam reveals normal bowel sounds, soft non tender, no masses Extremities he continues with a sling with some minor pain in the surgical site otherwise looks good Neurologic exam is alert and oriented, no focal loss of strength or sensation Skin is without bruises or rashes Psychologically is without concerns for anxiety or depression. Discharge Data Allergies Allergy/AdvReac Type Severity Reaction Status Date / Time NSAIDS (Non-Steroidal Allergy Intermediate Hives Verified 05/19/20 06:18 Anti-Inflamma aspirin Allergy Mild RASH,HIVES Verified 05/19/20 06:18 Consultations 05/19/20 08:02 ED Decision to Admit Stat 05/19/20 10:06 Consult Case Management - Discharge Planning Routine Ordered Studies 05/19/20 05:58 CT angio chest PE protocol Stat Hospital Course (1) Pneumonia: - Patient has received 1 dose of dexamethasone 10 mg IV, will continue on po steroids at home with slow taper augmentin antibiotics - able to wean oxygen to room air - COVID swab negative - CXR CTA negative for PE - Troponin minimally elevated on admission at 0.177, d-dimer elevated, CT negative for PE elevated troponin felt secondary to demand ischemia from hypoxia (2) COPD (chronic obstructive pulmonary disease): -History of lung nodules, follows with pulmonology at [facility] -History of sleep apnea no longer needs CPAP, will need to stop pulse ox prior to discharge to determine if requires O2. -Continue use of Spiriva, theophylline 400 mg BID, and albuterol as needed (3) Status post reverse arthroplasty of right shoulder: -Completed by Dr. Oglesby on 05/16 -Continue PT/OT and outppt follow up as needed -Continue pain control, bowel regimen (4) History of aortic valve replacement: -Done in 2009, follows with cardiology through the [facility] -Continue carvedilol 12.5 mg BID, Plavix 75 mg daily, hydrochlorothiazide 25 mg qam (5) Hx of venous thrombosis and embolism: -DVT occurred in right arm 2018. Patient was previously treated with Eliquis, has been off x3 months. Did previously follow with hematology, no known clotting issues, felt secondary to a port and a port since been removed. -PE diagnosed in 2009 -CTA is negative (6) Hypertension: -Antihypertensives as above (7) Hyperlipidemia: -Continue atorvastatin (8) Bipolar disorder, unspecified: (9) Generalized anxiety disorder: (10) Severe recurrent major depression without psychotic features: -Continue sertraline 200 mg daily, BuSpar 10 mg [id number] Total Time Total Time Spent Total Time Spent (In Minutes): It required greater than 30 minutes to prepare this patient for discharge Discharge Plan Discharge Items Patient Disposition: Home - Self-Care Reason For Visit: PNEUMONIA, ACUTE RESPIRATORY DISTRESS Discharge Diagnosis: acute hypoxic respiratory failure RLL pneumonia COPD Activity: Resume your previous activity Non-emergency contact: Primary Care Provider Call non-emergency contact if: you have any medication questions and your symptoms worsen Follow-up/Referrals: Fanny Franks PA-C [Primary Care Provider] - ([facility] will call you with your appt date and time. ) Diet: Regular Addtl Attending Provider Instructions: please rest and recover complete your antibiotics and steroid taper you have been diagnosed with a small pneumonia, it should improve with continued antibiotics and prednisone tapering dose, please see your primary care doctor for a recheck in one week Pending Studies at Discharge: No Stand-Alone Forms: My [facility] [employer], Smoking Cessation Medications and DC Order Prescriptions: New amoxicillin-pot clavulanate [Augmentin] 875-125 mg tablet 1 tab PO BID Qty: 14 RF: 0 prednisone 10 mg tablet 10 mg PO DAILY Qty: 40 RF: 0 Continued clopidogrel [Plavix] 75 mg Tablet 75 mg PO QAM Qty: 0 RF: 0 finasteride [Proscar] 5 mg Tablet 5 mg PO QAM Qty: 0 RF: 0 budesonide-formoterol [Symbicort] 160-4.5 mcg/actuation Hfa Aerosol Inhaler 2 puff INHALATION BID Qty: 0 RF: 0 sertraline [Zoloft] 100 mg Tablet 200 mg PO QAM 90 Days Qty: 90 RF: 1 morphine 30 mg Tablet 30 mg PO BID 30 Days Qty: 0 RF: 0 oxycodone 5 mg Tablet 5 mg PO BID PRN (Reason: Pain) Qty: 0 RF: 0 albuterol sulfate 2.5 mg /3 mL (0.083 %) Solution For Nebulization 2.5 mg INHALATION QID PRN (Reason: Wheezing) Qty: 0 RF: 0 Spiriva with HandiHaler 18 mcg Capsule, W/Inhalation Device 1 cap INHALATION QAM 30 Days Qty: 30 RF: 3 carvedilol 25 mg Tablet 12.5 mg PO BID RF: 0 prednisone 20 mg Tablet 40 mg PO UD PRN (Reason: LUNG PROBLEMS) RF: 0 nitroglycerin 0.4 mg Tablet, Sublingual 0.4 mg sublingual UD PRN (Reason: Chest Pain) RF: 0 hydrochlorothiazide 25 mg Tablet 25 mg PO QAM RF: 0 Ensure Liquid 1 ea PO BID RF: 0 epinephrine 0.3 mg/0.3 mL Syringe 0.3 mg IM UD PRN (Reason: Allergic Reaction) RF: 0 theophylline 400 mg Tablet Extended Release 24 Hr 400 mg PO BID RF: 0 buspirone 10 mg Tablet 10 mg PO BID RF: 0 albuterol sulfate [Proventil HFA] 90 mcg/actuation Hfa Aerosol Inhaler 2 puff INHALATION Q6H PRN (Reason: Shortness Of Breath) RF: 0 atorvastatin 80 mg Tablet 80 mg PO QAM RF: 0 ferrous sulfate 325 mg (65 mg iron) Tablet 325 mg PO Q OTHER DAY RF: 0 omeprazole 20 mg Tablet,Delayed Release (Dr/Ec) 20 mg PO QAM RF: 0 Discharge Orders: Discharge Order (Routine); Ordered 05/20/20 Ordered By: Rafael Ness Admission Data Admit Date/Time: 05/19/20 08:27 Attending Provider: Rafael Ness Admit Provider: Rafael Ness Primary Care Provider: Fanny Franks Other Providers: Brian Navarro Other Interventions: Discharge Summary Assessment (RN) Last Done: 05/20/20 11:45 Coding Level of Care Code 36511 OBS Care - Discharge Diagnoses Pneumonia J18.9 COPD (chronic obstructive pulmonary disease) J44.9 Status post reverse arthroplasty of right shoulder Z96.611 History of aortic valve replacement Z95.2 Hx of venous thrombosis and embolism Z86.718 Hypertension I10 Hyperlipidemia E78.5 Bipolar disorder, unspecified F31.9 Generalized anxiety disorder F41.1 Severe recurrent major depression without psychotic features F33.2
--- NOTE | 2020-06-18 08:26 | Coding Query ---
CODING QUERY To promote full compliance with coding requirements relating to patient care, provider participation is requested in all cases of spouter uncertainty. Please assist us with the question(s) below: Coding Question(s): 1. There is documentation on the H&P regarding Pneumonia of, "Question if the above pneumonia is secondary to post anesthesia aspiration?", as well as documentation by supervising physician below on H&P of, "Possible healthcare associated pneumonia patient is on Zosyn therapy, guaifenesin and prednisone". Please specify below, in your clinical opinion, regarding Pneumonia. ( xx) Both possible Healthcare Associated Pneumonia and questionable Pneumonia secondary to post anesthesia aspiration treated ( ) Possible Healthcare Associated Pneumonia only, the questionable Pneumonia secondary to post anesthesia aspiration is Ruled-out ( ) Questionable Pneumonia secondary to post anesthesia aspiration only, the possible Healthcare Associated Pneumonia is Ruled-out ( ) Other Pneumonia: Please Specify 2. Hypoxia is documented on ER H&P and Acute on Chronic Respiratory Failure with Hypoxia is documented on the Discharge Summary. Please specify below regarding the POA status of the Acute on Chronic Respiratory Failure with Hypoxia. ( xx) Present on Admission ( ) Not Present on Admission ( ) unknown POA status Physician's Response(s): Thank you Yoli Beck Principal Diagnosis: "that condition established after study, to be chiefly responsible for occasioning the admission of the patient to the hospital for care." Co-Existing Principal Diagnosis: "when two or more diagnoses equally meet the criteria for principal diagnosis as determined by the circumstances of admission, diagnostic work up, and/or therapy provided, and the Alphabetic Index, Tabular List, or another coding guideline does not provide sequencing direction, any one of the diagnoses may be sequenced first." "When the physician has documented what appears to be a current diagnosis in the body of the record, but has not included the diagnosis in the final diagnostic statement, the physician should be asked whether the diagnosis should be added." (Source [facility]oding [facility] 2 QTR90. p3-4) KASANDRA
== END 2020-05-20 15:05 | disposition home or self-care (01) | DRG 205 ==
LOC: ED 05:46 → 2W 08:27 → INTOOBSV 08:27 → OBSVTOIN 08:27 → 2W 09:00

== ENCOUNTER 2020-08-13 10:54 | Inpatient (IN) ==
[2020-08-13] MEDS ORDERED: ALBUTEROL 0.5% NEB SOLN 2.5 MG/0.5 ML VIAL NEB STA (11:13)
--- NOTE | 2020-08-13 11:20 | Emergency Department Note ---
Impression & Plan COPD exacerbation, Anemia ED Provider Note NAME: BRENDA ALLEN AGE: 64 SEX: M : 1955 ARRIVES VIA: Ambulance INFORMANT: Patient ED PROVIDER(S): Samuel Yousif DO CHIEF COMPLAINT: shortness of breath HPI: Patient is a 64-year-old male who presents to the ER for shortness of breath. The shortness of breath started 3 days ago. Denies any headache or change in vision. No chest pain or. No cough or runny nose. No loss of taste or smell. No belly pain nausea, vomiting or diarrhea. He has a history of COPD and this feels consistent with his previous. He started his emergency steroid pack 3 days ago. He is taking 40 mg of steroids per day. Is been taken neb treatments without improvement. He was brought in by EMS. Denies any recent trips or travel. ROS: See above HPI for pertinent positives & negatives. A total of 10 systems reviewed and were otherwise negative. PAST MEDICAL HISTORY:See Below PAST SURGICAL HISTORY:See Below FAMILY HISTORY:See Below SOCIAL HISTORY:See Below HOME MEDICATIONS:See Below ALLERGIES:See Below VITALS:See Below PHYSICAL EXAMINATION: GENERAL: Sitting up in bed, alert, dyspneic with conversation, disheveled on n jyoti cannula EYE EXAM: normal conjunctiva. OROPHARYNX: Dry mucous membranes NECK: supple, no nuchal rigidity, no adenopathy, non-tender LUNGS: Clear to auscultation. Normal chest wall mechanics HEART: no murmurs, S1 normal and S2 normal ABDOMEN: abdomen soft, non-tender, normo-active bowel sounds, no masses, no rebound or guarding. BACK: Back is symmetrical on inspection and there is no deformity, no midline tenderness, no CVA tenderness. SKIN: no rashes and no bruising UPPER EXTREMITIES: upper extremities are grossly normal. LOWER EXTREMITIES: No pitting edema. NEURO EXAM: Normal sensorium, cranial nerves II-XII grossly intact, normal speech, no gross weakness of arms, no gross weakness of legs. MEDICAL DECISION MAKING: Patient is a 64-year-old male with a past medical history of COPD the presents the ER for shortness of breath. This been getting worse over the past 3 days. IV was established blood work was obtained. Labs show no significant tiffani kocytosis and a mild anemia. INR unremarkable. D-dimer was negative. BMP along with LFTs bilirubin was unremarkable. Troponin was detectable but not positive. Lipase was normal. Covid was negative. Chest x-ray unremarkable. He was given 2 separate hour-long neb treatments. He was given IV steroids. He was updated bedside. He did have some improvement of his symptoms. Discussed with the hospitalist for further evaluation. Triage Nursing notes reviewed. Prior medical records reviewed Vital Signs: reviewed and remarkable for no significant abnormalities Differential diagnosis: Differential diagnoses includes but is not limited to pneumonia, bronchitis, COPD/Asthma exacerbation, pneumothorax, pulmonary embolism, congestive heart failure, acute coronary syndrome ER treatment provided: See below Diagnostics interpreted by me: ECG: Sinus rhythm rate of 68 Left axis Right bundle branch block T wave inversion in septal QTC 465 Cardiac Monitoring: An order was placed for continuous cardiac monitoring. The monitor shows a rate of 75 with sinus rhythm. Laboratory studies: As stated above and show below. 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 Did follow with heme- no known clotting issues - felt secondary to A-port- A port removed. GERD (gastroesophageal reflux disease) Well controlled and stable Hearing deficit Hyperlipidemia Hypertension Immunoglobulin G deficiency infusions monthly Lung nodules Following with pulm- getting repeat CT to monitor nodules 07/2020. Pulmonary embolism DX IN 2009 PVD (peripheral vascular disease) S/p angioplasties. On Plavix- cannot tolerate ASA Sleep apnea No longer needs CPAP- was retested Surgical History History of angioplasty LEs and hand History of aortic valve replacement [facility] "currently failing at 50%"--follows with Dr. Ji in [place] History of bronchoscopy History of cholecystectomy History of colonoscopy History of esophagogastroduodenoscopy (EGD) History of phacoemulsification of cataract of both eyes with intraocular lens implantation History of right inguinal hernia repair History of umbilical hernia repair History of vascular access device PORT INSERTION/REMOVAL (DOES NOT HAVE CURRENTLY) Status post reverse arthroplasty of right shoulder (~04/2020) Family History Father Family history of diabetes mellitus Other No family history of adverse response to anesthesia Social History Smoking Status: Former smoker Tobacco Type: Cigarettes Second Hand Exposure: Yes (parents smoked); Hx Alcohol Use: No Hx Substance Use: No Preferred Language: Bruneian Communication Ability: Effective Housekeeping Room Attendant Required: No Beliefs That Will Affect Care: None marital status: Current Living Situation: Spouse and Family Current Living Situation Comment: Other Information That Helps Us Care for You: No Feels Safe at Home: Yes Safety Concerns: Feels Safe At This Time Assistive Devices: None Allergies Allergies Allergy/AdvReac Type Severity Reaction Status Date / Time NSAIDS (Non-Steroidal Allergy Intermediate Hives Verified 08/13/20 12:39 Anti-Inflamma aspirin Allergy Mild RASH,HIVES Verified 08/13/20 12:39 Home Meds Home Medications Medication Instructions Recorded Confirmed budesonide-formoterol [Symbicort] 2 puff INHALATION BID #0 inhaler 06/05/14 08/13/20 finasteride [Proscar] 5 mg PO QAM #0 tab 06/05/14 08/13/20 morphine 30 mg PO BID 30 Days #0 tab 06/04/15 08/13/20 oxycodone 5 mg PO BID PRN #0 06/04/15 08/13/20 sertraline [Zoloft] 200 mg PO QAM 90 Days #90 tab 06/04/15 08/13/20 Spiriva with HandiHaler 1 cap INHALATION QAM 30 Days #30 02/03/18 08/13/20 cap albuterol sulfate 2.5 mg INHALATION QID PRN #0 dose 02/03/18 08/13/20 albuterol sulfate [Proventil HFA] 2 puff INHALATION Q6H PRN 01/16/19 08/13/20 atorvastatin 80 mg PO QAM 01/16/19 08/13/20 buspirone 10 mg PO BID 01/16/19 08/13/20 ferrous sulfate 325 mg PO Q OTHER DAY 01/16/19 08/13/20 omeprazole 20 mg PO QAM 01/16/19 08/13/20 theophylline 400 mg PO BID 01/16/19 08/13/20 carvedilol 12.5 mg PO BID 04/18/20 08/13/20 epinephrine 0.3 mg IM UD PRN 04/18/20 08/13/20 hydrochlorothiazide 25 mg PO QAM 04/18/20 08/13/20 nitroglycerin 0.4 mg SUBLINGUAL UD PRN 04/18/20 08/13/20 prednisone 40 mg PO UD PRN 04/18/20 08/13/20 Results & Data (ED) Vital Signs Vital Signs - 24 hr 08/13/20 10:48 08/13/20 11:03 08/13/20 11:13 Temperature 36.9 C Temperature Source Oral Pulse Rate 75 72 Pulse Rate [Apical] Pulse Rate from SpO2 Sensor 71 Pulse Rhythm Regular Regular Pulse Strength Normal Respiratory Rate 28 H 12 Respiratory Effort / Characteristics Short of Breath Respiratory Depth Shallow Respiratory Pattern Tachypnea Blood Pressure 169/98 H 169/98 H Blood Pressure Mean 121 107 Blood Pressure Position Sitting Pulse Oximetry 95 96 94 Oxygen Delivery Method Room Air Room Air Nasal Cannula Oxygen Flow Rate 1 Sepsis Recent Fever Within 48 Hours No Sepsis New/Unexplained Change in Mental Status N/A Sepsis Action Taken by Nursing No Action Required 08/13/20 11:14 08/13/20 11:15 08/13/20 11:30 Temperature Temperature Source Pulse Rate 70 70 70 Pulse Rate [Apical] Pulse Rate from SpO2 Sensor 71 70 69 Pulse Rhythm Pulse Strength Respiratory Rate 13 15 14 Respiratory Effort / Characteristics Respiratory Depth Respiratory Pattern Blood Pressure Blood Pressure Mean Blood Pressure Position Pulse Oximetry 96 96 92 Oxygen Delivery Method Oxygen Flow Rate Sepsis Recent Fever Within 48 Hours Sepsis New/Unexplained Change in Mental Status Sepsis Action Taken by Nursing 08/13/20 11:31 08/13/20 11:45 08/13/20 11:54 Temperature Temperature Source Pulse Rate 75 81 Pulse Rate [Apical] 75 Pulse Rate from SpO2 Sensor 74 81 Pulse Rhythm Pulse Strength Respiratory Rate 24 21 25 H Respiratory Effort / Characteristics Spontaneous Short of Breath Respiratory Depth Respiratory Pattern Blood Pressure 170/68 H Blood Pressure Mean 107 Blood Pressure Position Pulse Oximetry 95 90 95 Oxygen Delivery Method Nasal Cannula Oxygen Flow Rate 1.5 Sepsis Recent Fever Within 48 Hours Sepsis New/Unexplained Change in Mental Status Sepsis Action Taken by Nursing 08/13/20 12:00 08/13/20 12:01 08/13/20 12:15 Temperature Temperature Source Pulse Rate 77 75 81 Pulse Rate [Apical] Pulse Rate from SpO2 Sensor 76 74 81 Pulse Rhythm Pulse Strength Respiratory Rate 18 19 20 Respiratory Effort / Characteristics Respiratory Depth Respiratory Pattern Blood Pressure 154/87 H Blood Pressure Mean 103 Blood Pressure Position Pulse Oximetry 98 99 90 Oxygen Delivery Method Oxygen Flow Rate Sepsis Recent Fever Within 48 Hours Sepsis New/Unexplained Change in Mental Status Sepsis Action Taken by Nursing 08/13/20 12:30 08/13/20 12:45 08/13/20 12:46 Temperature Temperature Source Pulse Rate 76 73 74 Pulse Rate [Apical] Pulse Rate from SpO2 Sensor 76 73 74 Pulse Rhythm Pulse Strength Respiratory Rate 27 H 23 28 H Respiratory Effort / Characteristics Respiratory Depth Respiratory Pattern Blood Pressure 151/79 H 146/70 H Blood Pressure Mean 98 86 Blood Pressure Position Pulse Oximetry 95 90 94 Oxygen Delivery Method Oxygen Flow Rate Sepsis Recent Fever Within 48 Hours Sepsis New/Unexplained Change in Mental Status Sepsis Action Taken by Nursing 08/13/20 12:49 08/13/20 13:00 08/13/20 13:15 Temperature Temperature Source Pulse Rate 75 80 Pulse Rate [Apical] 72 Pulse Rate from SpO2 Sensor 73 80 Pulse Rhythm Pulse Strength Respiratory Rate 24 26 H 24 Respiratory Effort / Characteristics Spontaneous Respiratory Depth Respiratory Pattern Blood Pressure 144/75 H Blood Pressure Mean 86 Blood Pressure Position Pulse Oximetry 94 94 91 Oxygen Delivery Method Nasal Cannula Oxygen Flow Rate 1 Sepsis Recent Fever Within 48 Hours Sepsis New/Unexplained Change in Mental Status Sepsis Action Taken by Nursing 08/13/20 13:16 08/13/20 13:30 08/13/20 13:31 Temperature Temperature Source Pulse Rate 78 78 76 Pulse Rate [Apical] Pulse Rate from SpO2 Sensor 78 77 76 Pulse Rhythm Pulse Strength Respiratory Rate 20 19 19 Respiratory Effort / Characteristics Respiratory Depth Respiratory Pattern Blood Pressure 146/84 H Blood Pressure Mean 103 Blood Pressure Position Pulse Oximetry 90 94 93 Oxygen Delivery Method Oxygen Flow Rate Sepsis Recent Fever Within 48 Hours Sepsis New/Unexplained Change in Mental Status Sepsis Action Taken by Nursing Laboratory Data Result diagrams: 08/13/20 11:08 08/13/20 11:08 Lab Results 08/13/20 08/13/20 08/13/20 Range/Units 11:08 11:08 11:08 WBC 7.28 (4.8-10.8) K/uL RBC 4.21 L (4.7-6.1) M/uL Hgb 11.4 L (14.0-18.0) g/dL Hct 34.0 L (42-52) % MCV 80.8 (80-100) fL MCH 27.1 (25-34) pg MCHC 33.5 (32-36) g/dL RDW Std Deviation 45.0 (36.4-46.3) fL RDW Coeff of Rosario 15.4 H (11.5-14.5) % Plt Count 277 (130-400) K/uL MPV 9.4 (7.4-10.4) fL Immature Gran % (Auto) 0.1 % Neut % (Auto) 89.1 % Lymph % (Auto) 6.0 % Glades % (Auto) 4.8 % Eos % (Auto) 0.0 % Baso % (Auto) 0.0 % Neut # (Auto) 6.48 (1.4-6.5) K/uL Lymph # (Auto) 0.44 L (1.2-3.4) K/uL Glades # (Auto) 0.35 (0.11-0.59) K/uL Eos # (Auto) 0.00 (0-0.5) K/uL Baso # (Auto) 0.00 (0-0.2) K/uL Immature Gran # (Auto) 0.01 (0.00-0.02) K/uL PT 10.3 (9.0-12.0) Seconds INR 1.0 (0.9-1.1) APTT 24.0 (21.0-31.0) Seconds PTT Ratio 0.9 D-Dimer 240 (0-500) ug/L FEU Sodium 138 (136-145) mmol/L Potassium 4.2 (3.5-5.1) mmol/L Chloride 104 (98-107) mmol/L Carbon Dioxide 28 (21-32) mmol/L Anion Gap 6.0 (3-11) BUN 31 H (7-18) mg/dl Creatinine 0.84 (0.6-1.4) mg/dl Est Cr Clr Drug Dosing 79.1 ml/min Est GFR ( Amer) 106.5 Est GFR (Non-Af Amer) 91.9 BUN/Creatinine Ratio 36.9 H (10-20) Glucose 114 H (70-99) mg/dl Calcium 9.4 (8.5-10.1) mg/dl Total Bilirubin 0.5 (0.2-1) mg/dl AST 44 H (15-37) U/L ALT 36 (12-78) U/L Alkaline Phosphatase 74 (45-117) U/L Troponin I 0.023 (0-0.045) ng/ml Total Protein 7.1 (6.4-8.2) gm/dl Albumin 3.7 (3.4-5.0) gm/dl Globulin 3.4 (2.5-4.0) gm/dl Albumin/Globulin Ratio 1.1 (0.9-2) Lipase 44 L (73-393) U/L COVID-19 Eval Order SARS-CoV-2, RNA, NAAT (NEGATIVE) 08/13/20 08/13/20 Range/Units 11:08 11:08 WBC (4.8-10.8) K/uL RBC (4.7-6.1) M/uL Hgb (14.0-18.0) g/dL Hct (42-52) % MCV (80-100) fL MCH (25-34) pg MCHC (32-36) g/dL RDW Std Deviation (36.4-46.3) fL RDW Coeff of Rosario (11.5-14.5) % Plt Count (130-400) K/uL MPV (7.4-10.4) fL Immature Gran % (Auto) % Neut % (Auto) % Lymph % (Auto) % Glades % (Auto) % Eos % (Auto) % Baso % (Auto) % Neut # (Auto) (1.4-6.5) K/uL Lymph # (Auto) (1.2-3.4) K/uL Glades # (Auto) (0.11-0.59) K/uL Eos # (Auto) (0-0.5) K/uL Baso # (Auto) (0-0.2) K/uL Immature Gran # (Auto) (0.00-0.02) K/uL PT (9.0-12.0) Seconds INR (0.9-1.1) APTT (21.0-31.0) Seconds PTT Ratio D-Dimer (0-500) ug/L FEU Sodium (136-145) mmol/L Potassium (3.5-5.1) mmol/L Chloride (98-107) mmol/L Carbon Dioxide (21-32) mmol/L Anion Gap (3-11) BUN (7-18) mg/dl Creatinine (0.6-1.4) mg/dl Est Cr Clr Drug Dosing ml/min Est GFR ( Amer) Est GFR (Non-Af Amer) BUN/Creatinine Ratio (10-20) Glucose (70-99) mg/dl Calcium (8.5-10.1) mg/dl Total Bilirubin (0.2-1) mg/dl AST (15-37) U/L ALT (12-78) U/L Alkaline Phosphatase (45-117) U/L Troponin I (0-0.045) ng/ml Total Protein (6.4-8.2) gm/dl Albumin (3.4-5.0) gm/dl Globulin (2.5-4.0) gm/dl Albumin/Globulin Ratio (0.9-2) Lipase (73-393) U/L COVID-19 Eval Order Covid19 IDNow [facility] SARS-CoV-2, RNA, NAAT NEGATIVE (NEGATIVE) Administered Medications Azithromycin 500 mg/ Dextrose 255 mls @ 125 mls/hr IV 1530 ONE Stop: 08/13/20 17:32 Last Admin: 08/13/20 16:36 Dose: 125 mls/hr Documented by: [id number] Discontinued Medications Albuterol (Albuterol 0.5% Neb Soln 2.5 Mg/0.5 Ml Vial) 7.5 mg NEB NOW STA Stop: 08/13/20 11:14 Last Admin: 08/13/20 11:54 Dose: 7.5 mg Documented by: [id number] Albuterol (Albuterol 0.083% Nebu Soln 3 Ml Vial) 5 mg NEB NOW STA Stop: 08/13/20 12:36 Last Admin: 08/13/20 12:48 Dose: 5 mg Documented by: [id number] Methylprednisolone (Methylprednisolone 40 Mg/Ml Vial) 40 mg IV NOW STA Stop: 08/13/20 11:14 Last Admin: 08/13/20 11:46 Dose: 40 mg Documented by: [id number] Discharge Plan Visit Data Chief Complaint: Shortness of Breath/Dyspnea Stated Complaint: SOB ED Provider: Samuel Yousif Discharge Problem: COPD exacerbation, Anemia Patient Disposition: Admitted As Inpatient Discharge Instructions Interventions: ED Discharge Assessment Last Done: 08/13/20 15:44 Discharge Problem: Anemia Qualifiers: Anemia type: unspecified type Qualified Code(s): D64.9 - Anemia, unspecified
[2020-08-13 11:24] LABS: Hemoglobin 11.4 g/dL (14.0-18.0); Immature Granulocytes # (auto) 0.01 K/uL (0.00-0.02); Immature Granulocytes % (auto) 0.1 %; Lymphocytes # (auto) 0.44 K/uL (1.2-3.4); Mean Corpuscular Hemoglobin 27.1 pg (25-34); Mean Corpuscular Hgb Conc 33.5 g/dL (32-36); Mean Corpuscular Volume 80.8 fL (80-100); Mean Platelet Volume 9.4 fL (7.4-10.4); Monocytes # (auto) 0.35 K/uL (0.11-0.59); Monocytes % (auto) 4.8 %; Neutrophils # (auto) 6.48 K/uL (1.4-6.5); Neutrophils % (auto) 89.1 %; Platelet Count 277 K/uL (130-400); RDW Coefficient of Variation 15.4 % (11.5-14.5); Red Blood Count 4.21 M/uL (4.7-6.1); White Blood Count 7.28 K/uL (4.8-10.8)
[2020-08-13 11:41] LABS: D Dimer 240 ug/L FEU (0-500); Partial Thromboplastin Ratio 0.9; Prothrombin Time 10.3 Seconds (9.0-12.0)
[2020-08-13 11:42] LABS: Albumin Level 3.7 gm/dl (3.4-5.0); BUN Creatinine Ratio 36.9 (10-20); Calcium 9.4 mg/dl (8.5-10.1); Creatinine Clr Calc Pharmacy 79.1 ml/min; Est GFR (African American) 106.5; Est GFR (Non-African American) 91.9; Potassium 4.2 mmol/L (3.5-5.1)
[2020-08-13 11:47] LABS: Albumin Globulin Ratio 1.1 (0.9-2); Bilirubin,Total 0.5 mg/dl (0.2-1); Globulin 3.4 gm/dl (2.5-4.0); Total Protein 7.1 gm/dl (6.4-8.2); Troponin I 0.023 ng/ml (0-0.045)
--- NOTE | 2020-08-13 11:49 | XRay Report ---
XR chest 1V portable CLINICAL HISTORY: Chest Pain COMPARISON STUDY: Chest CT May 19, 2020. FINDINGS: Incidental note is made of a right shoulder arthroplasty and median sternotomy wires. There is emphysema. There is no pneumothorax or pleural effusion. Skinfold projects over the right upper h emithorax. Cardiomediastinal silhouette is stable. Right lung consolidation shown on prior chest CT h as resolved. IMPRESSION: 1. No acute cardiopulmonary findings. 2. Emphysema. ACT 112: Negative or not required by law. Electronically signed by: Ghulam Franco M.D. 08/13/2020 11:47 AM
[2020-08-13] MEDS ORDERED: ALBUTEROL 0.083% NEBU SOLN 3 ML VIAL NEB STA (12:35)
[2020-08-13] MEDS ORDERED: ONDANSETRON INJ 2 MG/ML 2 ML VIAL IV PRN (13:37)
[2020-08-13] MEDS ORDERED: ACETAMINOPHEN 325 MG TAB PO PRN (13:37)
[2020-08-13] MEDS ORDERED: ALBUTEROL 0.083% NEBU SOLN 3 ML VIAL INH PRN (13:51)
[2020-08-13] MEDS ORDERED: NITROGLYCERIN SL 0.4 MG/TAB TAB SL PRN (13:51)
[2020-08-13] MEDS ORDERED: oxyCODONE HCL IR 5 MG TAB (IMMEDIATE RELEASE) PO PRN (13:51)
--- NOTE | 2020-08-13 13:56 | History & Physical Report ---
Date of Service August 13, 2020 Assessment & Plan (1) COPD exacerbation: * Patient with longstanding history of COPD who follows with a red leader out of [facility]. He is currently on a number of home daily respiratory medications. * Patient with 3 days of outpatient treatment with oral steroid dosing without improvement of symptoms. * Did report improvement of symptoms with IV steroids and nebulizers in the emergency department. * Ongoing wheezing throughout all lung trimble on exam in the emergency department. * With significant tachypnea on ambulatory trial despite maintaining saturations above 90%. * Will admit patient for inpatient management with aggressive pulmonary toilet to include scheduled nebulizers, IV steroids, incentive spirometry, flutter valve. * We will place patient on 40 mg Solu-Medrol twice daily. * Will cover empirically with azithromycin. * continue oxygen to keep pulse ox greater than 90% * Continue home theophylline (2) PATTON (dyspnea on exertion): * Secondary to COPD exacerbation. * Please see above. (3) Generalized anxiety disorder: * Continue home medications as prescribed. (4) Heart disease: * Concerning and will continue to monitor in the patient with ongoing COPD symptoms. * Troponin not completely negative at this time. * Will trend. * EKG without acute findings and unchanged from prior. (5) History of aortic valve replacement: * Continue with ongoing outpatient management. (6) Chronic pain: * Continue patient's current outpatient pain management regime. DVT prophylaxis-Lovenox, PPI Disposition-admit to medical floor with telemetry History of Present Illness Primary Care Provider: Fanny Ferro Tiny Patient is a 64-year-old male with a significant past medical history of COPD, prior history of DVT, pneumonia, history of aortic valve replacement, heart disease, depression, anxiety, hypertension, hyperlipidemia. Patient reports that he was experiencing tightness in his chest and some shortness of breath for the last 3 days. He does have a rescue pack of 40 mg prednisone provided to him by his primary care provider. He reports that he has taken 3 days of the prednisone with worsening symptoms. He reports a dry cough as well as dyspnea on exertion. He reports that this is the worst COPD exacerbation that he is experienced. He denies any fevers or chills. No hemoptysis. No headaches or dizziness. No COVID-19 exposures. Patient reports that he contacted his primary care provider for an antibiotic and additional steroids, but they recommended that he be seen in their facility. After evaluating him in the office, they felt best the patient come to the emergency department for further evaluation and management. In the emergency department, the patient was provided nebulizers as well as IV steroids. No significant laboratory findings. Chest x-ray demonstrates no significant infiltrative changes. In discussion with patient at bedside, he reports that his breathing feels better after the IV steroids and nebulizer, however he does report that he is having persistent wheezing. Patient denies any current complaints of headaches, dizziness, lightheadedness, chest pain, palpitations, pleuritic pain, hemoptysis, nausea, vomiting, or abdominal discomfort. Allergies Allergy/AdvReac Type Severity Reaction Status Date / Time NSAIDS (Non-Steroidal Allergy Intermediate Hives Verified 08/13/20 12:39 Anti-Inflamma aspirin Allergy Mild RASH,HIVES Verified 08/13/20 12:39 Home Medications Medication Instructions Recorded Confirmed Type budesonide-formoterol [Symbicort] 2 puff INHALATION BID #0 inhaler 06/05/14 08/13/20 History finasteride [Proscar] 5 mg PO QAM #0 tab 06/05/14 08/13/20 History morphine 30 mg PO BID 30 Days #0 tab 06/04/15 08/13/20 History oxycodone 5 mg PO BID PRN #0 06/04/15 08/13/20 History sertraline [Zoloft] 200 mg PO QAM 90 Days #90 tab 06/04/15 08/13/20 History Spiriva with HandiHaler 1 cap INHALATION QAM 30 Days #30 02/03/18 08/13/20 History cap albuterol sulfate 2.5 mg INHALATION QID PRN #0 dose 02/03/18 08/13/20 History albuterol sulfate [Proventil HFA] 2 puff INHALATION Q6H PRN 01/16/19 08/13/20 History atorvastatin 80 mg PO QAM 01/16/19 08/13/20 History buspirone 10 mg PO BID 01/16/19 08/13/20 History ferrous sulfate 325 mg PO Q OTHER DAY 01/16/19 08/13/20 History omeprazole 20 mg PO QAM 01/16/19 08/13/20 History theophylline 400 mg PO BID 01/16/19 08/13/20 History carvedilol 12.5 mg PO BID 04/18/20 08/13/20 History epinephrine 0.3 mg IM UD PRN 04/18/20 08/13/20 History hydrochlorothiazide 25 mg PO QAM 04/18/20 08/13/20 History nitroglycerin 0.4 mg SUBLINGUAL UD PRN 04/18/20 08/13/20 History prednisone 40 mg PO UD PRN 04/18/20 08/13/20 History Past Med/Surg History Medical History Anxiety and depression Aortic valve defect Had AVR secondary to AR per patient "HAS MINIMAL LEAKING FROM PROSTHETIC COW AORTIC VALVE" Asthma Well controlled - inhalers daily and prn BPH (benign prostatic hyperplasia) Chronic obstructive pulmonary disease Deep vein thrombosis RT ARM 2018 (TREATED WITH ELIQUIS)- on AC x 6 months- then d/c'ed- no issues since. Did follow with heme- no known clotting issues - felt secondary to A-port- A port removed. GERD (gastroesophageal reflux disease) Well controlled and stable Hearing deficit Hyperlipidemia Hypertension Immunoglobulin G deficiency infusions monthly Lung nodules Following with pulm- getting repeat CT to monitor nodules 07/2020. Pulmonary embolism DX IN 2009 PVD (peripheral vascular disease) S/p angioplasties. On Plavix- cannot tolerate ASA Sleep apnea No longer needs CPAP- was retested Surgical History History of angioplasty LEs and hand [facility]currently failing at 50%"--follows with Dr. Ji in [place] History of bronchoscopy History of cholecystectomy History of colonoscopy History of esophagogastroduodenoscopy (EGD) History of phacoemulsification of cataract of both eyes with intraocular lens implantation History of right inguinal hernia repair History of umbilical hernia repair History of vascular access device PORT INSERTION/REMOVAL (DOES NOT HAVE CURRENTLY) Status post reverse arthroplasty of right shoulder (~04/2020) Family History Father Family history of diabetes mellitus Other No family history of adverse response to anesthesia Social History Smoking Status: Former smoker Tobacco Type: Cigarettes Second Hand Exposure: Yes (parents smoked); Hx Alcohol Use: No Hx Substance Use: No Preferred Language: Vietnamese Communication Ability: Effective Hall Porter Required: No Beliefs That Will Affect Care: None marital status: Current Living Situation: Spouse and Family Current Living Situation Comment: Other Information That Helps Us Care for You: No Feels Safe at Home: Yes Safety Concerns: Feels Safe At This Time Assistive Devices: Oxygen - Continuous Review of Systems Review of Systems: A complete 10 point review of systems was reviewed with the patient with pertinent positives and negatives as per history of present illness. All else were negative. Physical Exam Physical Exam: VITAL SIGNS - Vital signs and nursing notes were reviewed. GENERAL - 64-year-old male appearing his stated age who is in no acute distress. Communicates well with provider and answers questions appropriately. SKIN - Without rashes. HEAD - NC/AT. EYES - PERRL with EOMI bilaterally. Sclera anicteric. Palpebral conjunctiva pink and moist with no injection noted. EARS - No deformities of external structures noted on gross examination bilaterally. NOSE - Midline and without cyanosis. No epistaxis or purulent drainage noted. MOUTH/OROPHARYNX - Without perioral cyanosis. Buccal mucosa pink and moist and without leukoplakia. NECK - Neck with FROM. Supple to palpation. No nuchal rigidity. LUNGS - Barrel chest. Slightly tachypneic. Significant wheezing appreciated throughout all lung trimble. CARDIAC - RRR with S1/S2. No murmur, rubs, or gallops appreciated. ABDOMEN - Abdominal contour flat without pulsations or visible masses. BS normoactive all four quadrants. No tenderness, palpable masses, hepatosplenomegaly, or ascites noted. EXTREMITIES - No clubbing or peripheral cyanosis. No pretibial edema present. +3/5 radial and dorsalis pedis pulses palpated throughout. +5/5 strength noted in UE/LE bilaterally. NEUROLOGIC - Cranial nerves II through XII grossly intact. Sensory intact to light touch throughout. PSYCH - A&Ox3 and cooperates fully with examiner. Pt is very pleasant and interacts well with examiner. Results & Data Results & Data ([facility]) Vital Signs (Past 12 Hours) Vital Signs Temp Pulse Pulse Resp BP Pulse Ox 08/13/20 13:00 75 26 H 144/75 H 94 08/13/20 12:49 72 24 94 08/13/20 12:46 74 28 H 146/70 H 94 08/13/20 12:45 73 23 90 08/13/20 12:30 76 27 H 151/79 H 95 08/13/20 12:15 81 20 90 08/13/20 12:01 75 19 99 08/13/20 12:00 77 18 154/87 H 98 08/13/20 11:54 75 25 H 95 08/13/20 11:45 81 21 90 08/13/20 11:31 75 24 170/68 H 95 08/13/20 11:30 70 14 92 08/13/20 11:15 70 15 96 08/13/20 11:14 70 13 96 08/13/20 11:13 94 08/13/20 11:03 72 12 169/98 H 96 08/13/20 10:48 36.9 C 75 28 H 169/98 H 95 Code Status & VTE Plan VTE Prophylaxis Plan VTE Prophylaxis will be ordered: Yes Supervising Physician Co-Signing Physician Notes PA Supervision Note: I personally saw and examined the patient. I verified all siddiqui points and agree with JENNIFER Greenwood with the following exceptions and/or additions: This patient is a 64-year-old male with a history of severe COPD, AVR with bovine valve, HTN, chronic pain, bipolar disorder and anxiety, here with significantly worsening shortness of breath of the last 3 days despite taking prednisone at home After receiving IV steroids and albuterol nebulizer treatment in the ER, he is feeling much improved already. He is also wearing small amount of supplemental O2. He denies fevers or chills at home, no lightheadedness or headache, no chest pain except some chest tightness with the wheezing. No nausea or vomiting, no abdominal pains, no urinary issues. History and ROS reviewed as above Vitals reviewed Gen: AAOx3, NAD HEENT: Anicteric sclerae, EOMI CV: RRR positive 2/6 RONNIE at the [facility] Pulm: Significant diffuse inspiratory and expiratory wheezes Abd: +BS soft NT ND no masses or hernias Ext: No edema, 2+ DP pulses Skin: No rashes, warm/dry Neuro: Full strength throughout Laboratory values reviewed Chest x-ray image personally reviewed by me ECG on 08/13/2020 at 1104 with normal sinus rhythm, rate 68, right bundle branch block, LAFB unchanged from previous 64-year-old male here with significant COPD exacerbation Plan outlined as above IV steroids, bronchodilators, azithromycin Oxygen as needed PG Care Time/CCT Total # of Minutes Spent Total Time Spent with Patient: Total time spent is greater than 50% in coordination of care (as documented) at patient's floor/unit and/or counseling patient: Coding Level of Care Code 16978 Initial Inpt Care Lvl 3 Diagnoses COPD exacerbation J44.1 PATTON (dyspnea on exertion) R06.00 Generalized anxiety disorder F41.1 Heart disease I51.9 History of aortic valve replacement Z95.2 Chronic pain G89.29 Time Spent (min) 35
[2020-08-13] MEDS ORDERED: AZITHROMYCIN 500 MG in DEXTROSE 5% 250 ML IV ONE (15:30)
[2020-08-13] MEDS: FERROUS SULFATE 325 MG TAB PO SCH (18:40)
[2020-08-13] MEDS: ENOXAPARIN INJ 40 MG/0.4 ML SYR SQ SCH (18:40)
[2020-08-13] MEDS: ALBUT/IPRATROP 3MG/0.5MG NEB 3 ML VIAL INH SCH (19:16)
[2020-08-13] MEDS: THEOPHYLLINE 400 MG EXTENDED REL TAB PO SCH (20:40)
[2020-08-13] MEDS: methylPREDNISolone 40 MG in SYRINGE 0 ML IV SCH (20:40)
[2020-08-13] MEDS: carvediloL 12.5 MG TAB PO SCH (20:40)
[2020-08-13] MEDS: busPIRone 5 MG TAB PO SCH (20:41)
[2020-08-13] MEDS: MoRPHine SULFATE CR 15 MG TABCR PO SCH (20:44)
[2020-08-14] MEDS: ALBUT/IPRATROP 3MG/0.5MG NEB 3 ML VIAL INH SCH ×4 (00:38→19:28)
--- NOTE | 2020-08-14 06:36 | Electrocardiogram Report ---
Test Reason : Blood Pressure : / mmHG Vent. Rate : 068 BPM Atrial Rate : 068 BPM P-R Int : 128 ms QRS Dur : 122 ms QT Int : 438 ms P-R-T Axes : 039 -53 072 degrees QTc Int : 465 ms Normal sinus rhythm Right bundle branch block Left anterior fascicular block Bifascicular block Abnormal ECG When compared with ECG of 19-MAY-2020 05:52, Vent. rate has decreased BY [address] no longer elevated in Anterolateral leads Confirmed by Salvador Castañeda ([id number]) on 08/14/2020 6:35:28 AM Referred By: Confirmed By:Salvador Castañeda
[2020-08-14 08:49] LABS: Hematocrit (blood only) 37.3 % (42-52); Hemoglobin 12.5 g/dL (14.0-18.0); Immature Granulocytes # (auto) 0.01 K/uL (0.00-0.02); Immature Granulocytes % (auto) 0.2 %; Lymphocytes # (auto) 0.67 K/uL (1.2-3.4); Lymphocytes % (auto) 12.6 %; Mean Corpuscular Hemoglobin 27.2 pg (25-34); Mean Corpuscular Hgb Conc 33.5 g/dL (32-36); Mean Corpuscular Volume 81.1 fL (80-100); Mean Platelet Volume 9.5 fL (7.4-10.4); Monocytes # (auto) 0.59 K/uL (0.11-0.59); Monocytes % (auto) 11.1 %; Neutrophils # (auto) 4.04 K/uL (1.4-6.5); Neutrophils % (auto) 76.1 %; Platelet Count 270 K/uL (130-400); RDW Coefficient of Variation 15.4 % (11.5-14.5); White Blood Count 5.31 K/uL (4.8-10.8)
[2020-08-14 09:22] LABS: BUN Creatinine Ratio 28.7 (10-20); Calcium 9.2 mg/dl (8.5-10.1); Creatinine Clr Calc Pharmacy 76.4 ml/min; Est GFR (Non-African American) 90.6; Magnesium 2.4 mg/dl (1.8-2.4); Potassium 3.6 mmol/L (3.5-5.1)
[2020-08-14 09:23] LABS: Phosphorus 3.4 mg/dl (2.5-4.9)
[2020-08-14] MEDS: FLUTICASONE/VILANTEROL 100/25MCG 14 PUFFS/INHALER INH SCH (09:24)
[2020-08-14] MEDS: carvediloL 12.5 MG TAB PO SCH ×2 (09:25→22:02)
[2020-08-14] MEDS: ATORVASTATIN 40 MG TAB PO SCH (09:25)
[2020-08-14] MEDS: MoRPHine SULFATE CR 15 MG TABCR PO SCH ×2 (09:25→22:00)
[2020-08-14] MEDS: UMECLIDINIUM BROMIDE 62.5MCG/BLISTER 7 PUFFS/INHALER INH SCH (09:25)
[2020-08-14] MEDS: busPIRone 5 MG TAB PO SCH ×2 (09:25→22:02)
[2020-08-14] MEDS: THEOPHYLLINE 400 MG EXTENDED REL TAB PO SCH ×2 (09:26→22:02)
[2020-08-14] MEDS: methylPREDNISolone 40 MG in SYRINGE 0 ML IV SCH ×2 (09:26→22:02)
[2020-08-14] MEDS: PANTOprazole 40 MG TAB PO SCH (09:26)
[2020-08-14] MEDS: FINASTERIDE 5 MG TAB PO SCH (09:26)
[2020-08-14] MEDS: SERTRALINE HCL 100 MG TABLET PO SCH (09:27)
[2020-08-14] MEDS: hydroCHLOROthiazide 25 MG TAB PO SCH (10:48)
[2020-08-14] MEDS ORDERED: AZITHROMYCIN 500 MG in DEXTROSE 5% 250 ML IV SCH (16:00)
--- NOTE | 2020-08-14 16:34 | Hospitalist Progress Note ---
Date of Service August 14, 2020 Assessment & Plan (1) COPD exacerbation: This patient is a 64-year-old male with a history of severe COPD, AVR with bovine valve, HTN, chronic pain, bipolar disorder and anxiety, here with significantly worsening shortness of breath of the last 3 days despite taking prednisone at home Patient with longstanding history of COPD who follows with a group home manager out of [facility]. He is currently on a number of home daily respiratory medications. With significant tachypnea on ambulatory trial despite maintaining saturations above 90%. This persists but is improved today Continue scheduled nebulizers, IV steroids, incentive spirometry, flutter valve. -Continue 40 mg IV Solu-Medrol twice daily. -Continue to cover empirically with azithromycin but will convert to 250 mg p.o once daily for tomorrow continue oxygen to keep pulse ox greater than 90% -Continue home theophylline (2) PATTON (dyspnea on exertion): Secondary to COPD exacerbation as above (3) Generalized anxiety disorder: Stable -Continue home BuSpar (4) History of aortic valve replacement: AVR with bovine valve, currently reports that the ring is leaking and he may need repeat valve replacement with open heart surgery Follows with cardiology at the [place] and in [place] (5) Chronic pain: Continue patient's current outpatient pain management regimen (6) Hypertension: Blood pressure is quite elevated at times here but improved throughout the day Continue home hydrochlorothiazide, carvedilol (7) BPH (benign prostatic hyperplasia): No current issues -Continue finasteride (8) GERD (gastroesophageal reflux disease): Continue PPI No current issues (9) Restless leg: Severe, not on medication for this Check iron levels in the morning (10) Hx of venous thrombosis and embolism: History of DVT and PE in the past Continue Lovenox Disposition-continued stay Admission and Anticipated Discharge Date Admission Date: August 13, 2020 Subjective Patient feeling improved today. He did just walk a lap around the halls without oxygen on and the lowest his pulse ox got was 90%, however he is quite tachypneic after returning from his walk. Does not feel ready to go home yet. Has a occasional cough. No chest pain. Otherwise is eating and drinking, no other concerns. Telemetry with normal sinus rhythm with rates in the 70s, sinus bradycardia, PVCs Review of Systems Review of Systems: All systems reviewed & are unremarkable except as noted in HPI & below Physical Exam Constitutional: WD/WN, vitals as above Neck: trachea midline, no thyromegaly Respiratory: + tachypneic Auscultation: + wheezes (Diffusely); no crackles and no rhonchi Cardiovascular: RRR, no murmur, no edema Chest (Breasts): Chest: normal inspection of chest Gastrointestinal (Abdomen): normal bowel sounds, soft, nontender, no hepa tosplenomegaly Musculoskeletal: Extremities: extremities normal to inspection; no cyanosis and no clubbing Skin: no rashes, warm and dry Neurologic: moves all extremities and awake; no focal motor deficits Psychiatric: A+Ox3, euthymic affect Lymphatic: no lymphedema Results & Data Results & Data ([facility]) Vital Signs (Past 12 Hours) Vital Signs Temp Pulse Pulse Resp BP Pulse Ox 08/14/20 16:00 65 08/14/20 15:49 36.6 C 68 18 142/79 H 94 08/14/20 13:18 78 18 96 08/14/20 11:33 36.7 C 67 20 166/86 H 93 08/14/20 07:32 36.5 C 63 20 186/62 H 93 08/14/20 07:21 59 L 08/14/20 07:09 65 20 97 Laboratory Results 08/14/20 08/14/20 Range/Units 08:03 08:03 WBC 5.31 (4.8-10.8) K/uL RBC 4.60 L (4.7-6.1) M/uL Hgb 12.5 L (14.0-18.0) g/dL Hct 37.3 L (42-52) % MCV 81.1 (80-100) fL MCH 27.2 (25-34) pg MCHC 33.5 (32-36) g/dL RDW Std Deviation 45.0 (36.4-46.3) fL RDW Coeff of Rosario 15.4 H (11.5-14.5) % Plt Count 270 (130-400) K/uL MPV 9.5 (7.4-10.4) fL Immature Gran % (Auto) 0.2 % Neut % (Auto) 76.1 % Lymph % (Auto) 12.6 % Stanly % (Auto) 11.1 % Eos % (Auto) 0.0 % Baso % (Auto) 0.0 % Neut # (Auto) 4.04 (1.4-6.5) K/uL Lymph # (Auto) 0.67 L (1.2-3.4) K/uL Stanly # (Auto) 0.59 (0.11-0.59) K/uL Eos # (Auto) 0.00 (0-0.5) K/uL Baso # (Auto) 0.00 (0-0.2) K/uL Immature Gran # (Auto) 0.01 (0.00-0.02) K/uL Sodium 138 (136-145) mmol/L Potassium 3.6 (3.5-5.1) mmol/L Chloride 102 (98-107) mmol/L Carbon Dioxide 30 (21-32) mmol/L Anion Gap 6.0 (3-11) BUN 25 H (7-18) mg/dl Creatinine 0.87 (0.6-1.4) mg/dl Est Cr Clr Drug Dosing 76.4 ml/min Est GFR ( Amer) 105.0 Est GFR (Non-Af Amer) 90.6 BUN/Creatinine Ratio 28.7 H (10-20) Glucose 97 (70-99) mg/dl Calcium 9.2 (8.5-10.1) mg/dl Phosphorus 3.4 (2.5-4.9) mg/dl Magnesium 2.4 (1.8-2.4) mg/dl PG Care Time/CCT Total # of Minutes Spent Total Time Spent with Patient: Total time spent is greater than 50% in coordin ation of care (as documented) at patient's floor/unit and/or counseling patient: Coding Level of Care Code 39570 Subseq Hosp Care Lvl 2 Diagnoses COPD exacerbation J44.1 PATTON (dyspnea on exertion) R06.00 Generalized anxiety disorder F41.1 History of aortic valve replacement Z95.2 Chronic pain G89.29 Hypertension I10 BPH (benign prostatic hyperplasia) N40.0 GERD (gastroesophageal reflux disease) K21.9 Restless leg G25.81 Hx of venous thrombosis and embolism Z86.718
[2020-08-14] MEDS: ENOXAPARIN INJ 40 MG/0.4 ML SYR SQ SCH (17:44)
[2020-08-15] MEDS: ALBUT/IPRATROP 3MG/0.5MG NEB 3 ML VIAL INH SCH ×3 (00:44→13:05)
[2020-08-15] MEDS ORDERED: bisacodyL 5 MG TABEC PO ONE (07:40)
[2020-08-15] MEDS: FLUTICASONE/VILANTEROL 100/25MCG 14 PUFFS/INHALER INH SCH (08:11)
[2020-08-15] MEDS: carvediloL 12.5 MG TAB PO SCH (08:12)
[2020-08-15] MEDS: busPIRone 5 MG TAB PO SCH (08:12)
[2020-08-15] MEDS: FERROUS SULFATE 325 MG TAB PO SCH (08:13)
[2020-08-15] MEDS: UMECLIDINIUM BROMIDE 62.5MCG/BLISTER 7 PUFFS/INHALER INH SCH (08:13)
[2020-08-15] MEDS: hydroCHLOROthiazide 25 MG TAB PO SCH (08:13)
[2020-08-15] MEDS: FINASTERIDE 5 MG TAB PO SCH (08:14)
[2020-08-15] MEDS: ATORVASTATIN 40 MG TAB PO SCH (08:14)
[2020-08-15] MEDS: MoRPHine SULFATE CR 15 MG TABCR PO SCH (08:14)
[2020-08-15] MEDS: PANTOprazole 40 MG TAB PO SCH (08:14)
[2020-08-15] MEDS: methylPREDNISolone 40 MG in SYRINGE 0 ML IV SCH (08:15)
[2020-08-15] MEDS: THEOPHYLLINE 400 MG EXTENDED REL TAB PO SCH (08:15)
[2020-08-15] MEDS: SERTRALINE HCL 100 MG TABLET PO SCH (08:16)
[2020-08-15] MEDS ORDERED: AZITHROMYCIN 250 MG TAB PO SCH (09:00)
--- NOTE | 2020-08-15 11:27 | Discharge Summary ---
Date of Service August 15, 2020 Admission HPI Per Admitting Provider Patient is a 64-year-old male with a significant past medical history of COPD, prior history of DVT, pneumonia, history of aortic valve replacement, heart disease, depression, anxiety, hypertension, hyperlipidemia. Patient reports that he was experiencing tightness in his chest and some shortness of breath for the last 3 days. He does have a rescue pack of 40 mg prednisone provided to him by his primary care provider. He reports that he has taken 3 days of the prednisone with worsening symptoms. He reports a dry cough as well as dyspnea on exertion. He reports that this is the worst COPD exacerbation that he is experienced. He denies any fevers or chills. No hemoptysis. No headaches or dizziness. No COVID-19 exposures. Patient reports that he contacted his primary care provider for an antibiotic and additional steroids, but they recommended that he be seen in their facility. After evaluating him in the office, they felt best the patient come to the emergency department for further evaluation and management. In the emergency department, the patient was provided nebulizers as well as IV steroids. No significant laboratory findings. Chest x-ray demonstrates no significant infiltrative changes. In discussion with patient at bedside, he reports that his breathing feels better after the IV steroids and nebulizer, however he does report that he is having persistent wheezing. Patient denies any current complaints of headaches, dizziness, lightheadedness, chest pain, palpitations, pleuritic pain, hemoptysis, nausea, vomiting, or abdominal discomfort. Principal Diagnosis COPD Exacerbation Discharge Exam Constitutional WD/WN, vitals as above Eyes + anicteric sclerae Neck trachea midline, no thyromegaly Respiratory Auscultation: + wheezes (bilat upper airways MUCH improved); no crackles and no rhonchi Cardiovascular RRR, no murmur, no edema Chest (Breasts) Chest: normal inspection of chest Gastrointestinal (Abdomen) normal bowel sounds, soft, nontender, no hepatosplenomegaly Musculoskeletal Extremities: extremities normal to inspection; no cyanosis and no clubbing Skin no rashes, warm and dry Neurologic moves all extremities and awake; no focal motor deficits Psychiatric A+Ox3, euthymic affect Lymphatic no lymphedema Discharge Data Allergies Allergy/AdvReac Type Severity Reaction Status Date / Time NSAIDS (Non-Steroidal Allergy Intermediate Hives Verified 08/13/20 12:39 Anti-Inflamma aspirin Allergy Mild RASH,HIVES Verified 08/13/20 12:39 Consultations 08/13/20 13:35 ED Decision to Admit Stat Ordered Studies CXR Hospital Course (1) COPD exacerbation: This patient is a 64-year-old male with a history of severe COPD, AVR with bovine valve, HTN, chronic pain, bipolar disorder and anxiety, here with significantly worsening shortness of breath of the last 3 days despite taking prednisone at home Patient with longstanding history of COPD who 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 He is currently on a number of home daily respiratory medications. With significant tachypnea on ambulatory trial despite maintaining saturations above 90%. MUCH improved today, much less wheezing, not tachypneic, is not on O2, feels better. Received IV steroids and azithro, scheduled nebs, incentive spirometry, flutter valve. Stable for dc to home -Continue presnione slow taper 60mg daily and decrease by 10mg q2 days until gone -finish out 5 day course of azithromycin 250 mg p.o once daily -Continue home theophylline -continue nebs and home inhalers (2) PATTON (dyspnea on exertion): Secondary to COPD exacerbation as above Improved (3) Generalized anxiety disorder: Stable -Continue home BuSpar (4) History of aortic valve replacement: AVR with bovine valve, currently reports that the ring is leaking and he may need repeat valve replacement with open heart surgery [place] and in [place] (5) Chronic pain: Continue patient's current outpatient pain management regimen (6) Hypertension: Blood pressure is quite elevated at times here but improved throughout the day Continue home hydrochlorothiazide, carvedilol (7) BPH (benign prostatic hyperplasia): No current issues -Continue finasteride (8) GERD (gastroesophageal reflux disease): Continue PPI No current issues (9) Restless leg: Severe, not on medication for this recommend f/u with PCP--> check iron studies if not already done as outpt Consider Requip or something similar (10) Hx of venous thrombosis and embolism: History of DVT and PE in the past Received Lovenox Disposition-dc to home Total Time Total Time Spent Total Time Spent (In Minutes): 35 min Total Time Includes: Examination of the Patient, Discharge Planning and Medication Reconciliation Discharge Plan Discharge Items Patient Disposition: Home - Self-Care Reason For Visit: COPD EXACERBATION Discharge Diagnosis: COPD Exacerbation Condition on Discharge: Good Activity: Resume your previous activity Non-emergency contact: Primary Care Provider Call non-emergency contact if: you have any medication questions and your symptoms worsen Follow-up/Referrals: Fanny Franks PA-C [Primary Care Provider] - 08/28/20 1:30 pm (We have scheduled you with your PCP Fanny Franks on 08/28 at 130pm. It is important that you keep this appt, if it does not fit your schedule, please call [phone] to reschedule. ) Diet: Heart Healthy Addtl Attending Provider Instructions: Please finish out your prednisone taper down over the next 12 days. Finish out the azithromycin once daily x 2 more days. Continue your nebulizer treatments and inhalers as needed. Follow up with your PCP as scheduled for you. It was a pleasure taking care of you! -Regina Gonzalez MD Pending Studies at Discharge: No Stand-Alone Forms: [facility] Medications and DC Order Prescriptions: New azithromycin 250 mg Tablet 250 mg PO QAM Qty: 2 RF: 0 prednisone 10 mg tablet 60 mg PO DAILY Qty: 42 RF: 0 Continued finasteride [Proscar] 5 mg Tablet 5 mg PO QAM Qty: 0 RF: 0 budesonide-formoterol [Symbicort] 160-4.5 mcg/actuation Hfa Aerosol Inhaler 2 puff INHALATION BID Qty: 0 RF: 0 sertraline [Zoloft] 100 mg Tablet 200 mg PO QAM 90 Days Qty: 90 RF: 1 morphine 30 mg Tablet 30 mg PO BID 30 Days Qty: 0 RF: 0 oxycodone 5 mg Tablet 5 mg PO BID PRN (Reason: Pain) Qty: 0 RF: 0 albuterol sulfate 2.5 mg /3 mL (0.083 %) Solution For Nebulization 2.5 mg INHALATION QID PRN (Reason: Wheezing) Qty: 0 RF: 0 Spiriva with HandiHaler 18 mcg Capsule, W/Inhalation Device 1 cap INHALATION QAM 30 Days Qty: 30 RF: 3 carvedilol 25 mg Tablet 12.5 mg PO BID RF: 0 prednisone 20 mg Tablet 40 mg PO UD PRN (Reason: LUNG PROBLEMS) RF: 0 nitroglycerin 0.4 mg Tablet, Sublingual 0.4 mg sublingual UD PRN (Reason: Chest Pain) RF: 0 hydrochlorothiazide 25 mg Tablet 25 mg PO QAM RF: 0 epinephrine 0.3 mg/0.3 mL Syringe 0.3 mg IM UD PRN (Reason: Allergic Reaction) RF: 0 theophylline 400 mg Tablet Extended Release 24 Hr 400 mg PO BID RF: 0 buspirone 10 mg Tablet 10 mg PO BID RF: 0 albuterol sulfate [Proventil HFA] 90 mcg/actuation Hfa Aerosol Inhaler 2 puff INHALATION Q6H PRN (Reason: Shortness Of Breath) RF: 0 atorvastatin 80 mg Tablet 80 mg PO QAM RF: 0 omeprazole 20 mg Tablet,Delayed Release (Dr/Ec) 20 mg PO QAM RF: 0 Changed ferrous sulfate 325 mg (65 mg iron) Tablet 325 mg PO DAILY Qty: 0 RF: 0 Discharge Orders: Discharge Order (Routine); Ordered 08/15/20 Ordered By: Regina Gonzalez Admission Data Admit Date/Time: 08/13/20 13:40 Attending Provider: Regina Gonzalez Admit Provider: Regina Gonzalez Primary Care Provider: Fanny Franks Other Providers: Regina Gonzalez Coding Level of Care Code D/C Day Management >30 mins Diagnoses COPD exacerbation J44.1 PATTON (dyspnea on exertion) R06.00 Generalized anxiety disorder F41.1 History of aortic valve replacement Z95.2 Chronic pain G89.29 Hypertension I10 BPH (benign prostatic hyperplasia) N40.0 GERD (gastroesophageal reflux disease) K21.9 Restless leg G25.81 Hx of venous thrombosis and embolism Z86.718
[2020-08-15 11:40] VITALS: TEMP 98.1; O2SAT 93
[2020-08-15 13:08] VITALS: PULSE 68
[2020-08-15 13:47] VITALS: BP 185/91
== END 2020-08-15 14:28 | disposition home or self-care (01) | DRG 191 ==
LOC: ED 10:54 → 2W 13:40

== ENCOUNTER 2020-11-09 23:03 | Inpatient (IN) ==
[2020-11-09] MEDS ORDERED: ALBUT/IPRATROP 3MG/0.5MG NEB 3 ML VIAL NEB ONE (23:10)
--- NOTE | 2020-11-09 23:16 | Emergency Department Note ---
Impression & Plan COPD with acute exacerbation ED Provider Note Name: BRENDA ALLEN Age: 64 Sex: M Arrives Via: Ambulance Informant: Patient, EMS ED Provider: Ramsey Little MD Chief Complaint: Breathing difficulty Impression: Acute COPD exacerbation Medical Decision Makin yr old male with long history of COPD along with GERD, BPH, Anemia, HLD, HTN, Anxiety/Depression, CAD, PE, Bipolar arrives via EMS on CPAP for acute respiratory distress. Received IV solumedrol by EMS. Switched over to BiPAP on arrival and continued neb given. EKG/CXR OK. Labs unremarkable with mild dimer elevation. With history PE and dimer elevation felt CTA chest indicated which was unremarkable. He is not septic and no clear evidence pneumonia, reviewed with hospitalist and plan will hold off on abx at this time. He did get a bit anxious with continuous neb thus dose IV ativan with great result and no respiratory decrease. Given degree of respiratory difficulty will need to come in. COVID negative. Prior Medical Record and Triage/Nursing Notes reviewed by Me Additional history obtained from chart Differentials:Reactive airway disease, pneumonia, pneumothorax, COPD, CHF, infections, cardiac ischemia, pulmonary embolism, musculoskeletal, gastrointestinal, as well as other pathologies. Vital Signs: reviewed and remarkable for no significant abnormalities while on bipap Interventions: saline lock, duoneb continuous, ativan Labs:Reviewed and remarkable for no significant abnormalities Imaging:X ray results are stated below per my interpretation: Chest: 1 view: No infiltrate, no effusion, normal cardiac border. [facility] Radiologist interpretation reviewed by me: CT A Chest:no acute findings EKG:Per My Interpretation: Indication SHOB: NSR 60 bpm, qtc 464 with RBBB. No Ectopy. No Ischemia. Compared to EKG 08/13/20, no significant changes. Cardiac/Tele Monitoring: Cardiac Monitoring: An Order was placed for continuous cardiac monitoring. The monitor shows a rate of 60 with a normal sinus rhythm. Consults:Dr Edwin WILCOX Hospitalist Plan: Disposition:Hospitalization. Condition: Good History of Present Illness:64 yr old male with long history COPD arrives for evaluation of shortness of breath. Gradually worsening shortness of breath throughout the evening. Started taking nebs at home without much improvement. This evening much worse and unable to breath. Notes he had some associated chest pain for which he took slntg with resolution. SHOB worse with exertion, better with rest. No recent change to medication. No recent falls/trauma/injury. States no COVID contacts and he did get first vaccination about 3 weeks ago. EMS called this evening due to SOB. Given Solumedrol IV, Duoneb and placed on CPAP. Notes vastly improved with cpap. EMS reports patient with loud wheezing now, but he had almost no lung sounds at home. Patient denies fevers, chills, nausea, vomiting, back pain, syncope, abdominal pain, leg swelling, rashes, nor other symptoms. History of PE, currently on Plavix. States symptoms similar to previous COPD exacerbations. ROS: See above HPI for pertinent positives & negatives. A total of 10 systems reviewed and were otherwise negative. Past Medical History:GERD, BPH, ANemia, HLD, HTN, Anxiety/Depression, CAD, COPD, PE, Bipolar Past Surgical History:Aortic Valve repair Family History:See Below Social History:See Below Home Medications:See Below Allergies:NSAIDs, ASA Vitals:Blood Pressure: 105/81, Pulse 72, RR 23, T 36.8C, O2 98% on Bipap Physical Exam: GENERAL: Patient is unwell appearing and in moderate distress. EYES: No scleral icterus, unremarkable pupils. ENT: Mucous membranes moist, no nasal congestion. NECK: No masses appreciated, nomeningismus, trachea is midline. RESPIRATORY: Diffuse loud wheezing, tachypnea, dyspnea CARDIOVASCULAR: Regular rate and rhythm.No murmurs, rubs, gallops appreciated. GASTROINTESTINAL: Abdomen soft, non-tender, no peritonitis.Bowel sounds positive.No masses appreciated. BACK: No midline tenderness, no CVA tenderness EXTREMITIES: Normal motion all extremities, no cyanosis, no edema. NEUROLOGIC: Alert and oriented, no acute motor or sensory deficits, no focal weakness, cranial nerves grossly intact. SKIN: No rash, no jaundice, no diaphoresis. PSYCH: Appropriate GCS: 15 ED Course: Times/Reassessments: vastly improved on bipap and with ativan, breathing comfortably Critical Care: I have personally spent 30 minutes of critical care time in the direct management of this patient. Respiratory failure due to COPD exacerbation requiring BIPAP. This was a life/limb threatening event. This 30 minutes is in excess of all separately billable procedures. Ramsey Little MD Past Med/Surg History Medical History (Updated 11/10/20 @ 00:58 by Ramsey Little MD) Anxiety and depression Aortic valve defect Had AVR secondary to AR per patient "HAS MINIMAL LEAKING FROM PROSTHETIC COW AORTIC VALVE" Asthma Well controlled - inhalers daily and prn BPH (benign prostatic hyperplasia) Chronic obstructive pulmonary disease Deep vein thrombosis RT ARM 2018 (TREATED WITH ELIQUIS)- on AC x 6 months- then d/c'ed- no issues since. Did follow with heme- no known clotting issues - felt secondary to A-port- A port removed. GERD (gastroesophageal reflux disease) Well controlled and stable Hearing deficit Hyperlipidemia Hypertension Immunoglobulin G deficiency infusions monthly Lung nodules Following with pulm- getting repeat CT to monitor nodules 07/2020. Non-ST elevation [place] (NSTEMI) Pulmonary embolism DX IN 2009 PVD (peripheral vascular disease) S/p angioplasties. On Plavix- cannot tolerate ASA Restless leg Sleep apnea No longer needs CPAP- was retested Surgical History History of angioplasty LEs and hand History of aortic valve replacement 2009 @ [facility] "currently failing at 50%"--follows with Dr. Ji in [place] History of bronchoscopy History of cholecystectomy History of colonoscopy History of esophagogastroduodenoscopy (EGD) History of phacoemulsification of cataract of both eyes with intraocular lens implantation History of right inguinal hernia repair History of umbilical hernia repair History of vascular access device PORT INSERTION/REMOVAL (DOES NOT HAVE CURRENTLY) Status post reverse arthroplasty of right shoulder (~04/2020) Family History Father Family history of diabetes mellitus Other No family history of adverse response to anesthesia Social History Smoking Status: Former smoker Tobacco Type: Cigarettes Second Hand Exposure: Yes (parents smoked); Hx Alcohol Use: No Hx Substance Use: No Preferred Language: Syriac Communication Ability: Effective Inspector Rag Sorting Required: No Beliefs That Will Affect Care: None marital status: Current Living Situation: Spouse Current Living Situation Comment: Feels Safe at Home: Yes Assistive Devices: None Allergies Allergies Allergy/AdvReac Type Severity Reaction Status Date / Time NSAIDS (Non-Steroidal Allergy Intermediate Hives Verified 11/09/20 23:52 Anti-Inflamma aspirin Allergy Mild RASH,HIVES Verified 11/09/20 23:52 Home Meds Home Medications Medication Instructions Recorded Confirmed budesonide-formoterol [Symbicort] 2 puff INHALATION BID #0 inhaler 06/05/14 11/09/20 finasteride [Proscar] 5 mg PO QAM #0 tab 06/05/14 11/09/20 oxycodone 5 mg PO BID PRN #0 06/04/15 11/09/20 sertraline [Zoloft] 200 mg PO QAM 90 Days #90 tab 06/04/15 11/09/20 Spiriva with HandiHaler 1 cap INHALATION QAM 30 Days #30 02/03/18 11/09/20 cap albuterol sulfate 2.5 mg INHALATION QID PRN #0 dose 02/03/18 11/09/20 albuterol sulfate [Proventil HFA] 2 puff INHALATION Q6H PRN 01/16/19 11/09/20 atorvastatin 80 mg PO QAM 01/16/19 11/09/20 buspirone 10 mg PO BID 01/16/19 11/09/20 omeprazole 20 mg PO QAM 01/16/19 11/09/20 theophylline 400 mg PO BID 01/16/19 11/09/20 carvedilol 12.5 mg PO BID 04/18/20 11/09/20 epinephrine 0.3 mg IM UD PRN 04/18/20 11/09/20 hydrochlorothiazide 25 mg PO QAM 04/18/20 11/09/20 nitroglycerin 0.4 mg SUBLINGUAL UD PRN 04/18/20 11/09/20 prednisone 40 mg PO UD PRN 04/18/20 11/09/20 morphine [MS Contin] 30 mg PO Q12H 11/10/20 11/10/20 Previous Rx's Medication Instructions Recorded ferrous sulfate 325 mg PO DAILY #0 tab 08/15/20 Results & Data (ED) Vital Signs Vital Signs - 24 hr 11/09/20 23:10 11/09/20 23:15 11/09/20 23:16 Temperature 36.8 C Temperature Source Oral Pulse Rate 64 73 Pulse Rate [Right Radial] 63 Respiratory Rate 24 21 24 Respiratory Effort / Characteristics Spontaneous Labored Short of Breath Labored Short of Breath Non-Labored Spontaneous Respiratory Depth Normal Deep Respiratory Pattern Regular Regular Blood Pressure 158/94 H Blood Pressure Mean 115 Blood Pressure Position Sitting Pulse Oximetry 97 100 100 Oxygen Delivery Method CPAP BiPAP Oxygen Flow Rate Fraction of Inspired Oxygen 40 30 40 Sepsis Recent Fever Within 48 Hours No Sepsis New/Unexplained Change in Mental Status N/A Sepsis Action Taken by Nursing No Action Required 11/09/20 23:31 11/10/20 00:01 11/10/20 00:32 Temperature Temperature Source Pulse Rate 64 68 72 Pulse Rate [Right Radial] Respiratory Rate 18 15 23 Respiratory Effort / Characteristics Respiratory Depth Respiratory Pattern Blood Pressure 164/88 H 142/59 H 105/81 Blood Pressure Mean 113 86 89 Blood Pressure Position Pulse Oximetry 98 97 98 Oxygen Delivery Method CPAP CPAP CPAP Oxygen Flow Rate Fraction of Inspired Oxygen 30 30 30 Sepsis Recent Fever Within 48 Hours Sepsis New/Unexplained Change in Mental Status Sepsis Action Taken by Nursing 11/10/20 01:00 11/10/20 01:30 Temperature Temperature Source Pulse Rate 65 63 Pulse Rate [Right Radial] Respiratory Rate 14 16 Respiratory Effort / Characteristics Respiratory Depth Respiratory Pattern Blood Pressure 145/72 H Blood Pressure Mean 96 Blood Pressure Position Pulse Oximetry 100 98 Oxygen Delivery Method Oxymask Oxymask Oxygen Flow Rate 5 5 Fraction of Inspired Oxygen Sepsis Recent Fever Within 48 Hours Sepsis New/Unexplained Change in Mental Status Sepsis Action Taken by Nursing Laboratory Data Result diagrams: 11/09/20 23:24 11/09/20 23:24 Lab Results 11/09/20 11/09/20 11/09/20 Range/Units 23:22 23:22 23:24 WBC 6.31 (4.8-10.8) K/uL RBC 4.41 L (4.7-6.1) M/uL Hgb 12.1 L (14.0-18.0) g/dL Hct 36.3 L (42-52) % MCV 82.3 (80-100) fL MCH 27.4 (25-34) pg MCHC 33.3 (32-36) g/dL RDW Std Deviation 48.4 H (36.4-46.3) fL RDW Coeff of Rosario 15.8 H (11.5-14.5) % Plt Count 243 (130-400) K/uL MPV 9.5 (7.4-10.4) fL Immature Gran % (Auto) 0.2 % Neut % (Auto) 68.5 % Lymph % (Auto) 14.6 % [place] % (Auto) 10.5 % Eos % (Auto) 5.7 % Baso % (Auto) 0.5 % Neut # (Auto) 4.33 (1.4-6.5) K/uL Lymph # (Auto) 0.92 L (1.2-3.4) K/uL [place] # (Auto) 0.66 H (0.11-0.59) K/uL Eos # (Auto) 0.36 (0-0.5) K/uL Baso # (Auto) 0.03 (0-0.2) K/uL Immature Gran # (Auto) 0.01 (0.00-0.02) K/uL D-Dimer (0-500) ug/L FEU Sodium (136-145) mmol/L Potassium (3.5-5.1) mmol/L Chloride (98-107) mmol/L Carbon Dioxide (21-32) mmol/L Anion Gap (3-11) BUN (7-18) mg/dl Creatinine (0.6-1.4) mg/dl Est Cr Clr Drug Dosing ml/min Est GFR ( Amer) Est GFR (Non-Af Amer) BUN/Creatinine Ratio (10-20) Glucose (70-99) mg/dl Calcium (8.5-10.1) mg/dl Magnesium (1.8-2.4) mg/dl Total Bilirubin (0.2-1) mg/dl Direct Bilirubin (0-0.2) mg/dl AST (15-37) U/L ALT (12-78) U/L Alkaline Phosphatase (45-117) U/L Troponin I (0-0.045) ng/ml Total Protein (6.4-8.2) gm/dl Albumin (3.4-5.0) gm/dl COVID-19 Eval Order Covid19 [facility]Now [facility] SARS-CoV-2, RNA, NAAT NEGATIVE (NEGATIVE) 11/09/20 11/09/20 Range/Units 23:24 23:24 WBC (4.8-10.8) K/uL RBC (4.7-6.1) M/uL Hgb (14.0-18.0) g/dL Hct (42-52) % MCV (80-100) fL MCH (25-34) pg MCHC (32-36) g/dL RDW Std Deviation (36.4-46.3) fL RDW Coeff of Rosario (11.5-14.5) % Plt Count (130-400) K/uL MPV (7.4-10.4) fL Immature Gran % (Auto) % Neut % (Auto) % Lymph % (Auto) % [place] % (Auto) % Eos % (Auto) % Baso % (Auto) % Neut # (Auto) (1.4-6.5) K/uL Lymph # (Auto) (1.2-3.4) K/uL [place] # (Auto) (0.11-0.59) K/uL Eos # (Auto) (0-0.5) K/uL Baso # (Auto) (0-0.2) K/uL Immature Gran # (Auto) (0.00-0.02) K/uL D-Dimer 520 H* (0-500) ug/L FEU Sodium 133 L (136-145) mmol/L Potassium 4.4 (3.5-5.1) mmol/L Chloride 101 (98-107) mmol/L Carbon Dioxide 27 (21-32) mmol/L Anion Gap 5.0 (3-11) BUN 16 (7-18) mg/dl Creatinine 0.90 (0.6-1.4) mg/dl Est Cr Clr Drug Dosing 76.5 ml/min Est GFR ( Amer) 103.5 Est GFR (Non-Af Amer) 89.3 BUN/Creatinine Ratio 17.8 (10-20) Glucose 92 (70-99) mg/dl Calcium 8.9 (8.5-10.1) mg/dl Magnesium 2.0 (1.8-2.4) mg/dl Total Bilirubin 0.7 (0.2-1) mg/dl Direct Bilirubin < 0.1 (0-0.2) mg/dl AST 43 H (15-37) U/L ALT 32 (12-78) U/L Alkaline Phosphatase 88 (45-117) U/L Troponin I < 0.015 (0-0.045) ng/ml Total Protein 7.3 (6.4-8.2) gm/dl Albumin 3.7 (3.4-5.0) gm/dl COVID-19 Eval Order SARS-CoV-2, RNA, NAAT (NEGATIVE) Administered Medications Azithromycin 500 mg/ Dextrose 255 mls @ 125 mls/hr IV Q24H JERRY Stop: 11/17/20 03:59 Last Admin: 11/10/20 04:15 Dose: 125 mls/hr Documented by: [id number] Discontinued Medications Albuterol (Albut/Ipratrop 3mg/0.5mg Neb 3 Ml Vial) 12 ml NEB ONE ONE Stop: 11/09/20 23:11 Last Admin: 11/09/20 23:14 Dose: 12 ml Documented by: [id number] Lorazepam (Ativan) 1 mg in 2 mls @ 2 mls/min IV NOW STA Stop: 11/09/20 23:38 Last Admin: 11/09/20 23:43 Dose: 2 mls/min Documented by: [id number] Methylprednisolone 125 mg/ (Syringe) 2 mls @ 1.5 mls/min IV ONE ONE Stop: 11/10/20 04:01 Last Admin: 11/10/20 04:15 Dose: 1.5 mls/min Documented by: [id number] Ioversol (Optiray 320 125ml) 125 ml IV ONCE ONE Stop: 11/10/20 00:47 Last Admin: 11/10/20 00:47 Dose: 100 ml Documented by: [id number] Discharge Plan Visit Data Chief Complaint: Shortness of Breath/Dyspnea ED Provider: Ramsey Little Discharge Problem: COPD with acute exacerbation Patient Disposition: Admitted As Inpatient Discharge Instructions Interventions: ED Discharge Assessment Last Done: 11/10/20 02:32
[2020-11-09] MEDS ORDERED: LORazepam 1 MG/2 ML VIAL IV STA (23:37)
[2020-11-09 23:39] LABS: Basophils # (auto) 0.03 K/uL (0-0.2); Basophils % (auto) 0.5 %; Eosinophils # (auto) 0.36 K/uL (0-0.5); Eosinophils % (auto) 5.7 %; Hematocrit (blood only) 36.3 % (42-52); Hemoglobin 12.1 g/dL (14.0-18.0); Immature Granulocytes # (auto) 0.01 K/uL (0.00-0.02); Immature Granulocytes % (auto) 0.2 %; Lymphocytes # (auto) 0.92 K/uL (1.2-3.4); Lymphocytes % (auto) 14.6 %; Mean Corpuscular Hemoglobin 27.4 pg (25-34); Mean Corpuscular Hgb Conc 33.3 g/dL (32-36); Mean Corpuscular Volume 82.3 fL (80-100); Mean Platelet Volume 9.5 fL (7.4-10.4); Monocytes # (auto) 0.66 K/uL (0.11-0.59); Monocytes % (auto) 10.5 %; Neutrophils # (auto) 4.33 K/uL (1.4-6.5); Neutrophils % (auto) 68.5 %; Platelet Count 243 K/uL (130-400); RDW Coefficient of Variation 15.8 % (11.5-14.5); RDW Standard Deviation 48.4 fL (36.4-46.3); Red Blood Count 4.41 M/uL (4.7-6.1); White Blood Count 6.31 K/uL (4.8-10.8)
[2020-11-10] LABS: Alanine Aminotransferase 32 U/L (12-78); Albumin Level 3.7 gm/dl (3.4-5.0); Aspartate Aminotransferase 43 U/L (15-37); BUN Creatinine Ratio 17.8 (10-20); Bilirubin Direct < 0.1 mg/dl (0-0.2); Blood Urea Nitrogen 16 mg/dl (7-18); Calcium 8.9 mg/dl (8.5-10.1); Carbon Dioxide 27 mmol/L (21-32); Chloride 101 mmol/L (98-107); Creatinine Clr Calc Pharmacy 76.5 ml/min; Est GFR (African American) 103.5; Est GFR (Non-African American) 89.3; Glucose 92 mg/dl (70-99); Potassium 4.4 mmol/L (3.5-5.1); Sodium 133 mmol/L (136-145)
[2020-11-10 00:04] LABS: Alkaline Phosphatase 88 U/L (45-117); Bilirubin,Total 0.7 mg/dl (0.2-1); Total Protein 7.3 gm/dl (6.4-8.2); Troponin I < 0.015 ng/ml (0-0.045)
[2020-11-10 00:13] LABS: D Dimer 520 ug/L FEU (0-500)
[2020-11-10] MEDS ORDERED: OPTIRAY 320 125ml IV ONE (00:46)
--- NOTE | 2020-11-10 01:58 | History & Physical Report ---
Date of Service November 10, 2020 Assessment & Plan (1) COPD with acute exacerbation: Admit to medical with telemetry. Give methylprednisolone 125 mg IV now, and then 40 mg IV every 8 hours Duonebs every 4 hours while awake and every 2 hours when necessary. Guaifenesin extended release 600 mg p.o. twice daily Nasal cannula oxygen, titrate to keep pulse ox around 92% Check a theophylline level, and if acceptable continue theophylline 40 mg p.o. twice daily. Hold Spiriva, prednisone, Symbicort and Proventil HFA Azithromycin 500 mg IV daily Present on Admission?: Yes (2) GERD (gastroesophageal reflux disease): Increase omeprazole from 20 to 40 mg p.o. every morning Present on Admission?: Yes (3) BPH (benign prostatic hyperplasia): Continue finasteride 5 mg p.o. every morning Present on Admission?: Yes (4) Chronic pain: Continue morphine 30 mg p.o. twice daily and oxycodone 5 mg p.o. twice daily as needed breakthrough pain Present on Admission?: Yes (5) Hyperlipidemia: Continue atorvastatin 80 mg every morning Present on Admission?: Yes (6) Hypertension: Continue carvedilol 12.5 mg p.o. twice daily. Hold hydrochlorothiazide Present on Admission?: Yes (7) Generalized anxiety disorder: Generalized anxiety disorder/bipolar disorder- Continue sertraline and buspirone Present on Admission?: Yes (8) Hx of venous thrombosis and embolism: DVT prophylaxis with Lovenox Present on Admission?: Yes (9) Bipolar disorder, unspecified: See above Present on Admission?: Yes History of Present Illness Chief Complaint: The patient presents to the emergency department via EMS on CPAP for acute respiratory distress, that began earlier in the day prior to arrival. Primary Care Provider: Fanny Franks The patient is a 64-year-old male with a past medical history including COPD, restless leg syndrome, GERD, BPH, anemia, chronic pain syndrome, hyperlipidemia, hypertension, generalized anxiety disorder, severe recurrent major depression without psychotic features, CAD, COPD, status post AVR, bipolar disorder, histor y of venous thrombosis and embolism. Patient became acutely short of breath earlier in the day, EMS was called, and he was brought to the emergency department on CPAP. In the emergency department he was converted to BiPAP but reportedly did not tolerate this, even though he reportedly wears BiPAP with settings 13/8 at bedtime. He denies any recent travels or sick exposures. His COVID-19 test was negative in the ED. Allergies Allergy/AdvReac Type Severity Reaction Status Date / Time NSAIDS (Non-Steroidal Allergy Intermediate Hives Verified 11/09/20 23:52 Anti-Inflamma aspirin Allergy Mild RASH,HIVES Verified 11/09/20 23:52 Home Medications Medication Instructions Recorded Confirmed Type budesonide-formoterol [Symbicort] 2 puff INHALATION BID #0 inhaler 06/05/14 11/09/20 History finasteride [Proscar] 5 mg PO QAM #0 tab 06/05/14 11/09/20 History morphine 30 mg PO BID 30 Days #0 tab 06/04/15 11/09/20 History oxycodone 5 mg PO BID PRN #0 06/04/15 11/09/20 History sertraline [Zoloft] 200 mg PO QAM 90 Days #90 tab 06/04/15 11/09/20 History Spiriva with HandiHaler 1 cap INHALATION QAM 30 Days #30 02/03/18 11/09/20 History cap albuterol sulfate 2.5 mg INHALATION QID PRN #0 dose 02/03/18 11/09/20 History albuterol sulfate [Proventil HFA] 2 puff INHALATION Q6H PRN 01/16/19 11/09/20 History atorvastatin 80 mg PO QAM 01/16/19 11/09/20 History buspirone 10 mg PO BID 01/16/19 11/09/20 History omeprazole 20 mg PO QAM 01/16/19 11/09/20 History theophylline 400 mg PO BID 01/16/19 11/09/20 History carvedilol 12.5 mg PO BID 04/18/20 11/09/20 History epinephrine 0.3 mg IM UD PRN 04/18/20 11/09/20 History hydrochlorothiazide 25 mg PO QAM 04/18/20 11/09/20 History nitroglycerin 0.4 mg SUBLINGUAL UD PRN 04/18/20 11/09/20 History prednisone 40 mg PO UD PRN 04/18/20 11/09/20 History ferrous sulfate 325 mg PO DAILY #0 tab 08/15/20 11/09/20 Rx Past Med/Surg History Medical History (Updated 11/10/20 @ 00:58 by Ramsey Little MD) Anxiety and depression Aortic valve defect Had AVR secondary to AR per patient "HAS MINIMAL LEAKING FROM PROSTHETIC COW AORTIC VALVE" Asthma Well controlled - inhalers daily and prn BPH (benign prostatic hyperplasia) Chronic obstructive pulmonary disease Deep vein thrombosis RT ARM 2018 (TREATED WITH ELIQUIS)- on AC x 6 months- then d/c'ed- no issues since. Did follow with heme- no known clotting issues - felt secondary to A-port- A port removed. GERD (gastroesophageal reflux disease) Well controlled and stable Hearing deficit Hyperlipidemia Hypertension Immunoglobulin G deficiency infusions monthly Lung nodules Following with pulm- getting repeat CT to monitor nodules 07/2020. Non-ST elevation HI (NSTEMI) Pulmonary embolism DX IN 2009 PVD (peripheral vascular disease) S/p angioplasties. On Plavix- cannot tolerate ASA Restless leg Sleep apnea No longer needs CPAP- was retested Surgical History History of angioplasty LEs and hand History of aortic valve replacement [facility]currently failing at 50%"--follows with Dr. Ji in [place] History of bronchoscopy History of cholecystectomy History of colonoscopy History of esophagogastroduodenoscopy (EGD) History of phacoemulsification of cataract of both eyes with intraocular lens implantation History of right inguinal hernia repair History of umbilical hernia repair History of vascular access device PORT INSERTION/REMOVAL (DOES NOT HAVE CURRENTLY) Status post reverse arthroplasty of right shoulder (~04/2020) Family History Father Family history of diabetes mellitus Other No family history of adverse response to anesthesia Social History Smoking Status: Former smoker Tobacco Type: Cigarettes Second Hand Exposure: Yes (parents smoked); Hx Alcohol Use: No Hx Substance Use: No Preferred Language: Fijian Communication Ability: Effective Battery Container Inspector Required: No Beliefs That Will Affect Care: None marital status: Current Living Situation: Spouse and Family Current Living Situation Comment: Feels Safe at Home: Yes Assistive Devices: None Review of Systems Review of Systems: The patient denies chest pain, palpitations, cough, lower extremity swelling, sore throat, fevers, chills, sweats, nausea, vomiting, diarrhea , constipation, abdominal pain, pelvic pain, blood in urine or stool, dysuria, urinary frequency or urgency, lightheadedness, dizziness, headache, memory loss, loss of consciousness, rash, abnormal bruising or bleeding, imbalance, focal or generalized weakness, numbness or tingling in arms or legs, or night sweats. The review of systems is otherwise negative other than for that already noted above, and at least 10 systems have been reviewed. Physical Exam Physical Exam: The patient is awake, alert and oriented 3, well developed and well nourished, normocephalic and atraumatic, lying in bed and in no acute distress. HEENT--PERRL, EOMI, mucous membranes and oropharynx dry. Neck--supple. No JVD. No bruits. Thyroid normal, trachea midline, no adenopathy. Heart--normal S1 and S2. No murmurs, rubs or gallops. Lungs--lungs are very tight, with audible wheezing. Moderate respiratory distress and accessory muscle use while asleep Abdomen--normal bowel sounds and soft. Nontender. Nondistended, no hernias or masses, no organomegaly. Extremities--no cyanosis or clubbing. No edema. Dermatologic--normal skin turgor, normal color, no abnormal lymph nodes, no rash. Neurologic--cranial nerves II through XII grossly intact. Rheumatologic--limited exam due to pulmonary status Psychiatric--normal affect. Results & Data Results & Data ([facility]) Vital Signs (Past 12 Hours) Vital Signs Temp Pulse Pulse Resp BP Pulse Ox 11/10/20 01:30 63 16 98 11/10/20 01:00 65 14 145/72 H 100 11/10/20 00:32 72 23 105/81 98 11/10/20 00:01 68 15 142/59 H 97 11/09/20 23:31 64 18 164/88 H 98 11/09/20 23:16 63 24 100 11/09/20 23:15 98.2 F 73 21 158/94 H 100 11/09/20 23:10 64 24 97 Laboratory Results Laboratory Results WBC 6.31 K/uL (4.8-10.8) 11/09/20 23:24 RBC 4.41 M/uL (4.7-6.1) L 11/09/20 23:24 Hgb 12.1 g/dL (14.0-18.0) L 11/09/20 23:24 Hct 36.3 % (42-52) L 11/09/20 23:24 MCV 82.3 fL (80-100) 11/09/20 23: MCH 27.4 pg (25-34) 11/09/20 23: MCHC 33.3 g/dL (32-36) 11/09/20 23:24 RDW Std Deviation 48.4 fL (36.4-46.3) H 11/09/20 23: RDW Coeff of Rosario 15.8 % (11.5-14.5) H 11/09/20 23: Plt Count 243 K/uL (130-400) 11/09/20 23: MPV 9.5 fL (7.4-10.4) 11/09/20 23: Immature Gran % (Auto) 0.2 % 11/09/20 23: Neut % (Auto) 68.5 % 11/09/20 23:24 Lymph % (Auto) 14.6 % 11/09/20 23:24 Alpine % (Auto) 10.5 % 11/09/20 23:24 Eos % (Auto) 5.7 % 11/09/20 23:24 Baso % (Auto) 0.5 % 11/09/20 23:24 Neut # (Auto) 4.33 K/uL (1.4-6.5) 11/09/20 23: Lymph # (Auto) 0.92 K/uL (1.2-3.4) L 11/09/20 23:24 Alpine # (Auto) 0.66 K/uL (0.11-0.59) H 11/09/20 23:24 Eos # (Auto) 0.36 K/uL (0-0.5) 11/09/20 23:24 Baso # (Auto) 0.03 K/uL (0-0.2) 11/09/20 23:24 Immature Gran # (Auto) 0.01 K/uL (0.00-0.02) 11/09/20 23:24 D-Dimer 520 ug/L FEU (0-500) H* 11/09/20 23:24 Sodium 133 mmol/L (136-145) L 11/09/20 23:24 Potassium 4.4 mmol/L (3.5-5.1) 11/09/20 23:24 Chloride 101 mmol/L (98-107) 11/09/20 23:24 Carbon Dioxide 27 mmol/L (21-32) 11/09/20 23:24 Anion Gap 5.0 (3-11) 11/09/20 23:24 BUN 16 mg/dl (7-18) 11/09/20 23:24 Creatinine 0.90 mg/dl (0.6-1.4) 11/09/20 23:24 Est Cr Clr Drug Dosing 76.5 ml/min 11/09/20 23:24 Est GFR ( Amer) 103.5 11/09/20 23:24 Est GFR (Non-Af Amer) 89.3 11/09/20 23:24 BUN/Creatinine Ratio 17.8 (10-20) 11/09/20 23:24 Glucose 92 mg/dl (70-99) 11/09/20 23:24 Calcium 8.9 mg/dl (8.5-10.1) 11/09/20 23:24 Magnesium 2.0 mg/dl (1.8-2.4) 11/09/20 23:24 Total Bilirubin 0.7 mg/dl (0.2-1) 11/09/20 23:24 Direct Bilirubin < 0.1 mg/dl (0-0.2) 11/09/20 23:24 AST 43 U/L (15-37) H 11/09/20 23:24 ALT 32 U/L (12-78) 11/09/20 23:24 Alkaline Phosphatase 88 U/L (45-117) 11/09/20 23:24 Troponin I < 0.015 ng/ml (0-0.045) 11/09/20 23:24 Total Protein 7.3 gm/dl (6.4-8.2) 11/09/20 23:24 Albumin 3.7 gm/dl (3.4-5.0) 11/09/20 23:24 COVID-19 Eval Order Covid19 IDNow atMMAC 11/09/20 23:22 SARS-CoV-2, RNA, NAAT NEGATIVE (NEGATIVE) 11/09/20 23:22 Code Status & VTE Plan Code Status Full code VTE Prophylaxis Plan VTE Prophylaxis will be ordered: Yes PG Care Time/CCT Total # of Minutes Spent Total Time Spent with Patient: Total time spent is greater than 50% in coordination of care (as documented) at patient's floor/unit and/or counseling patient: Coding Level of Care Code 10391 Initial Inpt Care Lvl 3 Diagnoses COPD with acute exacerbation J44.1 GERD (gastroesophageal reflux disease) K21.9 BPH (benign prostatic hyperplasia) N40.0 Chronic pain G89.29 Hyperlipidemia E78.5 Hypertension I10 Generalized anxiety disorder F41.1 Hx of venous thrombosis and embolism Z86.718 Bipolar disorder, unspecified F31.9
[2020-11-10] MEDS ORDERED: methylPREDNISolone 125 MG/2 ML VIAL IV STA (03:28)
[2020-11-10] MEDS ORDERED: ACETAMINOPHEN 325 MG TAB PO PRN (03:28)
[2020-11-10] MEDS ORDERED: NITROGLYCERIN SL 0.4 MG/TAB TAB SL PRN (03:28)
[2020-11-10] MEDS ORDERED: ONDANSETRON INJ 2 MG/ML 2 ML VIAL IV PRN (03:28)
[2020-11-10] MEDS ORDERED: oxyCODONE HCL IR 5 MG TAB (IMMEDIATE RELEASE) PO PRN (03:28)
[2020-11-10] MEDS ORDERED: methylPREDNISolone 125 MG in SYRINGE 0 ML IV ONE (04:00)
[2020-11-10] MEDS: AZITHROMYCIN 500 MG in DEXTROSE 5% 250 ML IV SCH (04:15)
[2020-11-10] MEDS: ALBUT/IPRATROP 3MG/0.5MG NEB 3 ML VIAL NEB SCH ×4 (07:05→19:05)
--- NOTE | 2020-11-10 07:59 | XRay Report ---
XR chest 1V portable HISTORY: Shortness of breath. COMPARISON: 08/13/2020. FINDINGS: No pneumothorax. No pleural effusions. Mild interstitial thickening at the lung bases. This could be due to vascular crowding from the emphysema. The heart is normal in size. A cardiac valve p rosthesis and poststernotomy changes are again noted. There is a right shoulder prosthesis. No new fo hunter lung consolidations to suggest pneumonia. No evidence for pulmonary edema. IMPRESSION: Emphysema. Otherwise, no acute process within the chest. ACT 112: Negative or not required by law. Electronically signed by: Raoul Santoro M.D. 11/10/2020 7:57 AM
[2020-11-10] MEDS: ATORVASTATIN 40 MG TAB PO SCH (08:07)
[2020-11-10] MEDS: busPIRone 5 MG TAB PO SCH ×2 (08:07→20:01)
[2020-11-10] MEDS: guaiFENesin 600 MG TABCR PO SCH ×2 (08:07→20:02)
[2020-11-10] MEDS: MoRPHine SULFATE CR 15 MG TABCR PO SCH ×2 (08:07→20:01)
[2020-11-10] MEDS: THEOPHYLLINE 400 MG EXTENDED REL TAB PO SCH ×2 (08:07→20:01)
[2020-11-10] MEDS: carvediloL 12.5 MG TAB PO SCH ×2 (08:07→20:02)
[2020-11-10] MEDS: SERTRALINE HCL 100 MG TABLET PO SCH (08:08)
[2020-11-10] MEDS: ENOXAPARIN INJ 40 MG/0.4 ML SYR SQ SCH (08:08)
[2020-11-10] MEDS: FINASTERIDE 5 MG TAB PO SCH (08:08)
[2020-11-10] MEDS: PANTOprazole 40 MG TAB PO SCH (08:08)
[2020-11-10] MEDS: FERROUS SULFATE 325 MG TAB PO SCH (08:08)
--- NOTE | 2020-11-10 08:50 | CT Scan Report ---
CHEST CTA for PULMONARY ARTERIES CT DOSE: 415.95 mGy.cm HISTORY: Shortness of breath. Elevated d-dimer. TECHNIQUE: Multiaxial CT images of the chest were performed following the intravenous administration of contrast to evaluate the pulmonary arteries. Maximal intensity projection images were also obtaine d. A dose lowering technique was utilized adhering to the principles of ALARA. COMPARISON STUDY: Chest CTA 05/19/2020. FINDINGS: There is retrograde opacification of the hepatic veins. Otherwise, the visualized liver, sp yeison, and adrenal glands unremarkable. There is fatty atrophy throughout the majority of the pancreas . Prior cholecystectomy. No pleural or pericardial effusions. The heart is normal in size. There is a n aortic valve prosthesis and poststernotomy changes. No mediastinal or hilar lymphadenopathy. There is right shoulder prosthesis. No suspicious lytic or blastic osseous lesions. No pneumothorax. There is respiratory motion artifact. Moderate emphysema. No focal lung consolidations to suggest pneumonia . No evidence for an aortic dissection. No filling defects within the pulmonary arteries to suggest p ulmonary embolus. Motion artifact results in suboptimal evaluation of the subsegmental pulmonary brett gracie. IMPRESSION: 1. No evidence for pulmonary embolus. 2. Emphysema. 3. Postoperative changes as described above. 4. No focal lung consolidations to suggest pneumonia. ACT 112: Negative or not required by law. Electronically signed by: Raoul Santoro M.D. 11/10/2020 8:49 AM
[2020-11-10] MEDS: methylPREDNISolone 40 MG in SYRINGE 0 ML IV SCH ×2 (11:23→21:02)
--- NOTE | 2020-11-10 12:59 | History & Physical Bridge Note ---
Date of Service November 10, 2020 History & Physical Bridge Note I have examined the patient, reviewed the History & Physical and in the interval since the performance of the History & Physical I have noted the following changes of clinical significance: patient admitted after midnight, feeling better, titrated down off oxygen already, 95% on room air less wheezing, less coughing, less dyspnea he says he felt sick for about three days at home he said he follows with distance education coordinator in [place], he finished a Prednisone taper about 10 days ago for COPD, slowly got worse since Prednisone stopped he is eating well, no fever, no chest pain might be ready for discharge tomorrow but will decide after he is seen
[2020-11-11] MEDS: methylPREDNISolone 40 MG in SYRINGE 0 ML IV SCH ×3 (04:21→20:34)
[2020-11-11] MEDS: AZITHROMYCIN 500 MG in DEXTROSE 5% 250 ML IV SCH (05:25)
--- NOTE | 2020-11-11 06:03 | Electrocardiogram Report ---
Test Reason : Blood Pressure : / mmHG Vent. Rate : 060 BPM Atrial Rate : 288 BPM P-R Int : 000 ms QRS Dur : 120 ms QT Int : 464 ms P-R-T Axes : 000 -56 060 degrees QTc Int : 464 ms Poor data quality, interpretation may be adversely affected Normal sinus rhythm Left axis deviation Right bundle branch block Abnormal ECG When compared with ECG of 13-AUG-2020 11:04, No significant change Confirmed by Salvador Castañeda ([id number]) on 11/11/2020 6:03:20 AM Referred By: REFERRED SELF Confirmed By:Salvador Castañeda
[2020-11-11] MEDS: ALBUT/IPRATROP 3MG/0.5MG NEB 3 ML VIAL NEB SCH ×4 (07:14→19:23)
[2020-11-11] MEDS: ENOXAPARIN INJ 40 MG/0.4 ML SYR SQ SCH (08:14)
[2020-11-11] MEDS: busPIRone 5 MG TAB PO SCH ×2 (08:15→20:35)
[2020-11-11] MEDS: ATORVASTATIN 40 MG TAB PO SCH (08:15)
[2020-11-11] MEDS: carvediloL 12.5 MG TAB PO SCH ×2 (08:15→20:35)
[2020-11-11] MEDS: PANTOprazole 40 MG TAB PO SCH (08:16)
[2020-11-11] MEDS: SERTRALINE HCL 100 MG TABLET PO SCH (08:16)
[2020-11-11] MEDS: THEOPHYLLINE 400 MG EXTENDED REL TAB PO SCH ×2 (08:16→20:36)
[2020-11-11] MEDS: FERROUS SULFATE 325 MG TAB PO SCH (08:16)
[2020-11-11] MEDS: FINASTERIDE 5 MG TAB PO SCH (08:16)
[2020-11-11] MEDS: guaiFENesin 600 MG TABCR PO SCH ×2 (08:16→20:36)
[2020-11-11] MEDS: MoRPHine SULFATE CR 15 MG TABCR PO SCH ×2 (08:21→20:37)
[2020-11-11] MEDS: POLYETHYLENE (MIRALAX) 17 GM PACK PO SCH (08:30)
--- NOTE | 2020-11-11 10:30 | Hospitalist Progress Note ---
Date of Service November 11, 2020 Assessment & Plan (1) COPD with acute exacerbation: move to medical floor today, change to admission as he will stay additional night continue Solu Medrol 40 q8 for today, start Prednisone 50mg tomorrow AM although he has some dyspnea he does not have any hypoxemia he has concerns about needing oxygen, can check a 2 step tomorrow Duonebs every 4 hours while awake and every 2 hours when necessary. Guaifenesin extended release 600 mg p.o. twice daily continue theophylline 400 mg p.o. twice daily. Azithromycin 500 mg IV daily x 5 days (2) GERD (gastroesophageal reflux disease): Increase omeprazole from 20 to 40 mg p.o. every morning (3) BPH (benign prostatic hyperplasia): Continue finasteride 5 mg p.o. every morning (4) Chronic pain: Continue morphine 30 mg p.o. twice daily and oxycodone 5 mg p.o. twice daily as needed breakthrough pain (5) Hyperlipidemia: Continue atorvastatin 80 mg every morning (6) Hypertension: Continue carvedilol 12.5 mg p.o. twice daily. Hold hydrochlorothiazide (7) Generalized anxiety disorder: Generalized anxiety disorder/bipolar disorder- Continue sertraline and buspirone (8) Hx of venous thrombosis and embolism: DVT prophylaxis with Lovenox (9) Bipolar disorder, unspecified: See above Admission and Anticipated Discharge Date Admission Date: November 10, 2020 Subjective patient doing a little worse compared to yesterday, lungs feel tighter, wheezing more he had to put some oxygen on after walking back from bathroom, normally he does not wear oxygen has a dry cough, no sputum at all no chest pain, no fever, no nausea, he c/o constipation, gave Miralax this morning no labs today Review of Systems Review of Systems: All systems reviewed & are unremarkable except as noted in Subjective Physical Exam Constitutional: WD/WN, vitals as above comfortable; no acute distress Neck: trachea midline, no thyromegaly Respiratory: normal respiratory effort and + cough; no respiratory distress and not tachypneic Auscultation: + crackles and + wheezes (bilaterally) Cardiovascular: Rate/Rhythm: regular rate and regular rhythm Heart Sounds: normal S1, normal S2 and + murmur Extremities: normal capillary refill; no edema Gastrointestinal (Abdomen): normal bowel sounds, soft, nontender, no hepatosplenomegaly Musculoskeletal: no cyanosis or clubbing, extremities motor strength 5/5 Skin: no rashes, warm and dry Neurologic: patellar DTR's 2+ bilat, sensation intact and PERRL, EOMI, accommodation nl, no face palsy, no dysarthria Psychiatric: A+Ox3, euthymic affect Lymphatic: no cervical or axillary lymphadenopathy Results & Data Results & Data ([facility]) Vital Signs (Past 12 Hours) Vital Signs Temp Pulse Pulse Pulse Resp BP Pulse Ox 11/11/20 07:37 36.6 C 66 16 148/80 H 94 11/11/20 07:15 65 16 97 11/11/20 07:12 60 11/11/20 04:10 36.6 C 72 20 134/69 93 11/10/20 23:43 36.5 C 79 20 150/65 H 94 11/10/20 23:25 75 Medications Administered Current Inpatient Medications Acetaminophen (Acetaminophen 325 Mg Tab) 650 mg PO Q4H PRN PRN Reason: Pain or Fever Stop: 12/10/20 03:27 Albuterol (Albut/Ipratrop 3mg/0.5mg Neb 3 Ml Vial) 3 ml NEB QIDR JERRY Stop: 12/10/20 06:59 Last Admin: 11/11/20 07:14 Dose: 3 ml Documented by: Atorvastatin Calcium (Atorvastatin 40 Mg Tab) 80 mg PO QAM JERRY Stop: 12/10/20 08:59 Last Admin: 11/11/20 08:15 Dose: 80 mg Documented by: Buspirone HCl (Buspirone 5 Mg Tab) 10 mg PO BID JERRY Stop: 12/10/20 08:59 Last Admin: 11/11/20 08:15 Dose: 10 mg Documented by: Carvedilol (Carvedilol 12.5 Mg Tab) 12.5 mg PO BID JERRY Stop: 12/10/20 08:59 Last Admin: 11/11/20 08:15 Dose: 12.5 mg Documented by: Enoxaparin Sodium (Enoxaparin Inj 40 Mg/0.4 Ml Syr) 40 mg SQ Q24H JERRY Stop: 12/10/20 07:59 Last Admin: 11/11/20 08:14 Dose: 40 mg Documented by: Ferrous Sulfate (Ferrous Sulfate 325 Mg Tab) 325 mg PO DAILY JERRY Stop: 12/10/20 08:59 Last Admin: 11/11/20 08:16 Dose: 325 mg Documented by: Finasteride (Finasteride 5 Mg Tab) 5 mg PO QAM [facility] Stop: 12/10/20 08:59 Last Admin: 11/11/20 08:16 Dose: 5 mg Documented by: Guaifenesin (Guaifenesin 600 Mg Tabcr) 600 mg PO Q12 JERRY Stop: 12/10/20 08:59 Last Admin: 11/11/20 08:16 Dose: 600 mg Documented by: Azithromycin 500 mg/ Dextrose 255 mls @ 125 mls/hr IV Q24H JERRY Stop: 11/17/20 03:59 Last Infusion: 11/11/20 07:28 Dose: Infused Documented by: Methylprednisolone 40 mg/ (Syringe) 0.64 mls @ 1.5 mls/min IV Q8H [facility] Stop: 12/10/20 11:59 Last Admin: 11/11/20 04:21 Dose: 1.5 mls/min Documented by: Morphine Sulfate (Morphine Sulfate Cr 15 Mg Tabcr) 30 mg PO BID [facility] Stop: 11/24/20 08:59 Last Admin: 11/11/20 08:21 Dose: 30 mg Documented by: Nitroglycerin (Nitroglycerin Sl 0.4 Mg/Tab Tab) 0.4 mg SL UD PRN PRN Reason: Chest Pain Stop: 12/10/20 03:27 Ondansetron HCl (Ondansetron Inj 2 Mg/Ml 2 Ml Vial) 4 mg IV Q6H PRN PRN Reason: Nausea Stop: 12/10/20 03:27 Oxycodone HCl (Oxycodone Hcl Ir 5 Mg Tab (Immediate Release)) 5 mg PO BID PRN PRN Reason: Pain Stop: 11/24/20 03:27 Pantoprazole Sodium (Pantoprazole 40 Mg Tab) 40 mg PO QAM [facility] Stop: 12/10/20 08:59 Last Admin: 11/11/20 08:16 Dose: 40 mg Documented by: Polyethylene Glycol (Polyethylene (Miralax) 17 Gm Pack) 17 gm PO DAILY [facility] Stop: 12/11/20 08:59 Last Admin: 11/11/20 08:30 Dose: 17 gm Documented by: Sertraline HCl (Sertraline Hcl 100 Mg Tablet) 200 mg PO QAM [facility] Stop: 12/10/20 08:59 Last Admin: 11/11/20 08:16 Dose: 200 mg Documented by: Theophylline (Theophylline 400 Mg Extended Rel Tab) 400 mg PO BID JERRY Stop: 12/10/20 08:59 Last Admin: 11/11/20 08:16 Dose: 400 mg Documented by: PG Care Time/CCT Total # of Minutes Spent Total Time Spent with Patient: Total time spent is greater than 50% in coordination of care (as documented) at patient's floor/unit and/or counseling patient: Coding Level of Care Code 80511 Subseq Hosp Care Lvl 2 Diagnoses COPD with acute exacerbation J44.1 GERD (gastroesophageal reflux disease) K21.9 BPH (benign prostatic hyperplasia) N40.0 Chronic pain G89.29 Hyperlipidemia E78.5 Hypertension I10 Generalized anxiety disorder F41.1 Hx of venous thrombosis and embolism Z86.718 Bipolar disorder, unspecified F31.9
[2020-11-12] MEDS: AZITHROMYCIN 500 MG in DEXTROSE 5% 250 ML IV SCH (05:05)
[2020-11-12] MEDS: ALBUT/IPRATROP 3MG/0.5MG NEB 3 ML VIAL NEB SCH ×3 (06:58→14:44)
[2020-11-12 07:20] LABS: Hematocrit (blood only) 33.9 % (42-52); Hemoglobin 11.8 g/dL (14.0-18.0); Mean Corpuscular Hemoglobin 28.5 pg (25-34); Mean Corpuscular Hgb Conc 34.8 g/dL (32-36); Mean Corpuscular Volume 81.9 fL (80-100); Mean Platelet Volume 9.4 fL (7.4-10.4); Platelet Count 264 K/uL (130-400); RDW Coefficient of Variation 15.9 % (11.5-14.5); RDW Standard Deviation 47.8 fL (36.4-46.3); Red Blood Count 4.14 M/uL (4.7-6.1); White Blood Count 7.75 K/uL (4.8-10.8)
[2020-11-12 07:55] LABS: BUN Creatinine Ratio 24.5 (10-20); Calcium 9.1 mg/dl (8.5-10.1); Creatinine Clr Calc Pharmacy 68.4 ml/min; Est GFR (African American) 91.1; Est GFR (Non-African American) 78.6; Potassium 4.2 mmol/L (3.5-5.1)
[2020-11-12] MEDS: busPIRone 5 MG TAB PO SCH (08:27)
[2020-11-12] MEDS: FERROUS SULFATE 325 MG TAB PO SCH (08:27)
[2020-11-12] MEDS: SERTRALINE HCL 100 MG TABLET PO SCH (08:27)
[2020-11-12] MEDS: ATORVASTATIN 40 MG TAB PO SCH (08:28)
[2020-11-12] MEDS: PANTOprazole 40 MG TAB PO SCH (08:28)
[2020-11-12] MEDS: guaiFENesin 600 MG TABCR PO SCH (08:28)
[2020-11-12] MEDS: ENOXAPARIN INJ 40 MG/0.4 ML SYR SQ SCH (08:28)
[2020-11-12] MEDS: FINASTERIDE 5 MG TAB PO SCH (08:28)
[2020-11-12] MEDS: carvediloL 12.5 MG TAB PO SCH (08:29)
[2020-11-12] MEDS: THEOPHYLLINE 400 MG EXTENDED REL TAB PO SCH (08:30)
[2020-11-12] MEDS: MoRPHine SULFATE CR 15 MG TABCR PO SCH (08:31)
[2020-11-12] MEDS ORDERED: predniSONE 50 MG TAB PO SCH (09:00)
[2020-11-12] MEDS: POLYETHYLENE (MIRALAX) 17 GM PACK PO SCH (11:01)
--- NOTE | 2020-11-12 13:20 | Hospitalist Progress Note ---
Date of Service November 12, 2020 Assessment & Plan (1) COPD with acute exacerbation: treated with Solu Medrol 40 q8 for two days, started Prednisone 50mg qAM on 11/12 2 step ambulatory oxygen test on 11/12, he is very short of breath on exertion, cannot walk very far, gets fatigued he says this has been happening a lot at home the past few weeks his saturations dropped to 88% while ambulating and then when he sat down to recover they dropped to 87% and remained at 87% for a few minutes he was breathing heavy, took a few minutes to recover on room air recommend 2L NC on exertion to prevent him from desaturating Duonebs every 4 hours while awake and every 2 hours when necessary. Guaifenesin extended release 600 mg p.o. twice daily continue theophylline 400 mg p.o. twice daily. Azithromycin 500 mg IV daily x 5 days (2) GERD (gastroesophageal reflux disease): Increase omeprazole from 20 to 40 mg p.o. every morning (3) BPH (benign prostatic hyperplasia): Continue finasteride 5 mg p.o. every morning (4) Chronic pain: Continue morphine 30 mg p.o. twice daily and oxycodone 5 mg p.o. twice daily as needed breakthrough pain (5) Hyperlipidemia: Continue atorvastatin 80 mg every morning (6) Hypertension: Continue carvedilol 12.5 mg p.o. twice daily. Hold hydrochlorothiazide (7) Generalized anxiety disorder: Generalized anxiety disorder/bipolar disorder- Continue sertraline and buspirone (8) Hx of venous thrombosis and embolism: DVT prophylaxis with Lovenox (9) Bipolar disorder, unspecified: See above Admission and Anticipated Discharge Date Admission Date: November 10, 2020 Subjective patient feeling a little better, no dyspnea at rest but has a lot of dyspnea on exertion performed 2 step on room air this morning, saturations were good at rest, he could only ambulate 400 feet, very dyspneic while walking his saturations dropped to 88% and I was waiting for him in the room when he sat down after walking his saturations were 87% while sitting and he was really working to breathe it took him several minutes to recover on room air and his saturations were finally up to 88% he needs 2L of oxygen on exertion, he has severe COPD as well as aortic stenosis he is eating well, making urine, moving his bowels plan to send him home later today Review of Systems Review of Systems: All systems reviewed & are unremarkable except as noted in Subjective Physical Exam Constitutional: WD/WN, vitals as above comfortable; no acute distress Neck: trachea midline, no thyromegaly Respiratory: normal respiratory effort and + cough; no respiratory distress and not tachypneic Auscultation: + wheezes (bilaterally) Cardiovascular: Rate/Rhythm: regular rate and regular rhythm Heart Sounds: normal S1, normal S2 and + murmur Extremities: normal capillary refill; no edema Gastrointestinal (Abdomen): normal bowel sounds, soft, nontender, no hepatosplenomegaly Musculoskeletal: no cyanosis or clubbing, extremities motor strength 5/5 Skin: no rashes, warm and dry Neurologic: patellar DTR's 2+ bilat, sensation intact and PERRL, EOMI, accommodation nl, no face palsy, no dysarthria Psychiatric: A+Ox3, euthymic affect Lymphatic: no cervical or axillary lymphadenopathy Results & Data Results & Data ([facility]) Vital Signs (Past 12 Hours) Vital Signs Temp Pulse Pulse Pulse Pulse Resp Resp 11/12/20 09:41 137 H 87 74 26 H 11/12/20 09:40 111 H 20 11/12/20 07:36 36.6 C 55 L 16 11/12/20 06:59 71 20 Resp Resp BP Pulse Ox Pulse Ox Pulse Ox Pulse Ox 11/12/20 09:41 22 18 90 94 95 11/12/20 09:40 94 11/12/20 07:36 163/83 H 96 11/12/20 06:59 96 Laboratory Results Laboratory Results - last 24 hr 11/12/20 11/12/20 06:45 06:45 WBC 7.75 RBC 4.14 L Hgb 11.8 L Hct 33.9 L MCV 81.9 MCH 28.5 MCHC 34.8 RDW Std Deviation 47.8 H RDW Coeff of Rosario 15.9 H Plt Count 264 MPV 9.4 Sodium 138 Potassium 4.2 Chloride 105 Carbon Dioxide 29 Anion Gap 4.0 BUN 25 H Creatinine 1.00 Est Cr Clr Drug Dosing 68.4 Est GFR ( Amer) 91.1 Est GFR (Non-Af Amer) 78.6 BUN/Creatinine Ratio 24.5 H Glucose 132 H Calcium 9.1 Medications Administered Current Inpatient Medications Acetaminophen (Acetaminophen 325 Mg Tab) 650 mg PO Q4H PRN PRN Reason: Pain or Fever Stop: 12/10/20 03:27 Albuterol (Albut/Ipratrop 3mg/0.5mg Neb 3 Ml Vial) 3 ml NEB QIDR JERRY Stop: 12/10/20 06:59 Last Admin: 11/12/20 09:40 Dose: 3 ml Documented by: Atorvastatin Calcium (Atorvastatin 40 Mg Tab) 80 mg PO QAM [facility] Stop: 12/10/20 08:59 Last Admin: 11/12/20 08:28 Dose: 80 mg Documented by: Buspirone HCl (Buspirone 5 Mg Tab) 10 mg PO BID JERRY Stop: 12/10/20 08:59 Last Admin: 11/12/20 08:27 Dose: 10 mg Documented by: Carvedilol (Carvedilol 12.5 Mg Tab) 12.5 mg PO BID [facility] Stop: 12/10/20 08:59 Last Admin: 11/12/20 08:29 Dose: 12.5 mg Documented by: Enoxaparin Sodium (Enoxaparin Inj 40 Mg/0.4 Ml Syr) 40 mg SQ Q24H JERRY Stop: 12/10/20 07:59 Last Admin: 11/12/20 08:28 Dose: 40 mg Documented by: Ferrous Sulfate (Ferrous Sulfate 325 Mg Tab) 325 mg PO DAILY JERRY Stop: 12/10/20 08:59 Last Admin: 11/12/20 08:27 Dose: 325 mg Documented by: Finasteride (Finasteride 5 Mg Tab) 5 mg PO QAM [facility] Stop: 12/10/20 08:59 Last Admin: 11/12/20 08:28 Dose: 5 mg Documented by: Guaifenesin (Guaifenesin 600 Mg Tabcr) 600 mg PO Q12 JERRY Stop: 12/10/20 08:59 Last Admin: 11/12/20 08:28 Dose: 600 mg Documented by: Azithromycin 500 mg/ Dextrose 255 mls @ 125 mls/hr IV Q24H JERRY Stop: 11/17/20 03:59 Last Infusion: 11/12/20 07:08 Dose: Infused Documented by: Morphine Sulfate (Morphine Sulfate Cr 15 Mg Tabcr) 30 mg PO BID [facility] Stop: 11/24/20 08:59 Last Admin: 11/12/20 08:31 Dose: 30 mg Documented by: Nitroglycerin (Nitroglycerin Sl 0.4 Mg/Tab Tab) 0.4 mg SL UD PRN PRN Reason: Chest Pain Stop: 12/10/20 03:27 Ondansetron HCl (Ondansetron Inj 2 Mg/Ml 2 Ml Vial) 4 mg IV Q6H PRN PRN Reason: Nausea Stop: 12/10/20 03:27 Oxycodone HCl (Oxycodone Hcl Ir 5 Mg Tab (Immediate Release)) 5 mg PO BID PRN PRN Reason: Pain Stop: 11/24/20 03:27 Pantoprazole Sodium (Pantoprazole 40 Mg Tab) 40 mg PO QAM [facility] Stop: 12/10/20 08:59 Last Admin: 11/12/20 08:28 Dose: 40 mg Documented by: Polyethylene Glycol (Polyethylene (Miralax) 17 Gm Pack) 17 gm PO DAILY [facility] Stop: 12/11/20 08:59 Last Admin: 11/12/20 11:01 Dose: Not Given Documented by: Prednisone (Prednisone 50 Mg Tab) 50 mg PO QAM [facility] Stop: 12/12/20 08:59 Last Admin: 11/12/20 08:27 Dose: 50 mg Documented by: Sertraline HCl (Sertraline Hcl 100 Mg Tablet) 200 mg PO QAM [facility] Stop: 12/10/20 08:59 Last Admin: 11/12/20 08:27 Dose: 200 mg Documented by: Theophylline (Theophylline 400 Mg Extended Rel Tab) 400 mg PO BID [facility] Stop: 12/10/20 08:59 Last Admin: 11/12/20 08:30 Dose: 400 mg Documented by: PG Care Time/CCT Total # of Minutes Spent Total Time Spent with Patient: Total time spent is greater than 50% in coordination of care (as documented) at patient's floor/unit and/or counseling patient: Coding Level of Care Code None Diagnoses COPD with acute exacerbation J44.1 GERD (gastroesophageal reflux disease) K21.9 BPH (benign prostatic hyperplasia) N40.0 Chronic pain G89.29 Hyperlipidemia E78.5 Hypertension I10 Generalized anxiety disorder F41.1 Hx of venous thrombosis and embolism Z86.718 Bipolar disorder, unspecified F31.9
--- NOTE | 2020-11-12 14:45 | Discharge Summary ---
Date of Service November 12, 2020 Admission HPI Per Admitting Provider The patient is a 64-year-old male with a past medical history including COPD, restless leg syndrome, GERD, BPH, anemia, chronic pain syndrome, hyperlipidemia, hypertension, generalized anxiety disorder, severe recurrent major depression without psychotic features, CAD, COPD, status post AVR, bipolar disorder, history of venous thrombosis and embolism. Patient became acutely short of breath earlier in the day, EMS was called, and he was brought to the emergency department on CPAP. In the emergency department he was converted to BiPAP but reportedly did not tolerate this, even though he reportedly wears BiPAP with settings 13/8 at bedtime. He denies any recent travels or sick exposures. His COVID-19 test was negative in the ED. Principal Diagnosis COPD exacerbation Discharge Exam Constitutional WD/WN, vitals as above comfortable; no acute distress Neck trachea midline, no thyromegaly Respiratory normal respiratory effort and + cough; no respiratory distress and not tachypneic Auscultation: + wheezes (bilaterally) Cardiovascular Rate/Rhythm: regular rate and regular rhythm Heart Sounds: normal S1, normal S2 and + murmur Extremities: normal capillary refill; no edema Gastrointestinal (Abdomen) normal bowel sounds, soft, nontender, no hepatosplenomegaly Musculoskeletal no cyanosis or clubbing, extremities motor strength 5/5 Skin no rashes, warm and dry Neurologic patellar DTR's 2+ bilat, sensation intact and PERRL, EOMI, accommodation nl, no face palsy, no dysarthria Psychiatric A+Ox3, euthymic affect Lymphatic no cervical or axillary lymphadenopathy Discharge Data Allergies Allergy/AdvReac Type Severity Reaction Status Date / Time NSAIDS (Non-Steroidal Allergy Intermediate Hives Verified 11/09/20 23:52 Anti-Inflamma aspirin Allergy Mild RASH,HIVES Verified 11/09/20 23:52 Consultations 11/10/20 01:12 ED Decision to Admit Stat 11/10/20 03:28 Consult Case Management - Discharge Planning Routine Ordered Studies 11/10/20 00:24 CT angio chest PE protocol Urgent Hospital Course (1) COPD with acute exacerbation: treated with Solu Medrol 40 q8 for two days, started Prednisone 50mg qAM on 11/12 2 step ambulatory oxygen test on 11/12, he is very short of breath on exertion, cannot walk very far, gets fatigued he says this has been happening a lot at home the past few weeks his saturations dropped to 88% while ambulating and then when he sat down to recover they dropped to 87% and remained at 87% for a few minutes he was breathing heavy, took a few minutes to recover on room air patient found to be 87% on room air at rest he requires 2L NC at rest and on exertion will discharge home on Prednisone taper, Zithromax he has home nebulizers (2) GERD (gastroesophageal reflux disease): Increase omeprazole from 20 to 40 mg p.o. every morning (3) BPH (benign prostatic hyperplasia): Continue finasteride 5 mg p.o. every morning (4) Chronic pain: Continue morphine 30 mg p.o. twice daily and oxycodone 5 mg p.o. twice daily as needed breakthrough pain (5) Hyperlipidemia: Continue atorvastatin 80 mg every morning (6) Hypertension: Continue carvedilol 12.5 mg p.o. twice daily. Hold hydrochlorothiazide (7) Generalized anxiety disorder: Generalized anxiety disorder/bipolar disorder- Continue sertraline and buspirone (8) Hx of venous thrombosis and embolism: DVT prophylaxis with Lovenox (9) Bipolar disorder, unspecified: See above Total Time Total Time Spent Total Time Spent (In Minutes): 32 Total Time Includes: Examination of the Patient, Discharge Planning and Medication Reconciliation Discharge Plan Discharge Items Reason For Visit: COPD EXACERBATION Follow-up/Referrals: Fanny Franks PA-C [Primary Care Provider] - (PLEASE SCHEDULE A [facility]MENT [facility] WITHIN 7-10 DAYS. ) Medications and DC Order Prescriptions: No Action finasteride [Proscar] 5 mg Tablet 5 mg PO QAM Qty: 0 RF: 0 budesonide-formoterol [Symbicort] 160-4.5 mcg/actuation Hfa Aerosol Inhaler 2 puff INHALATION BID Qty: 0 RF: 0 sertraline [Zoloft] 100 mg Tablet 200 mg PO QAM 90 Days Qty: 90 RF: 1 oxycodone 5 mg Tablet 5 mg PO BID PRN (Reason: Pain) Qty: 0 RF: 0 albuterol sulfate 2.5 mg /3 mL (0.083 %) Solution For Nebulization 2.5 mg INHALATION QID PRN (Reason: Wheezing) Qty: 0 RF: 0 Spiriva with HandiHaler 18 mcg Capsule, W/Inhalation Device 1 cap INHALATION QAM 30 Days Qty: 30 RF: 3 carvedilol 25 mg Tablet 12.5 mg PO BID RF: 0 prednisone 20 mg Tablet 40 mg PO UD PRN (Reason: LUNG PROBLEMS) RF: 0 nitroglycerin 0.4 mg Tablet, Sublingual 0.4 mg sublingual UD PRN (Reason: Chest Pain) RF: 0 hydrochlorothiazide 25 mg Tablet 25 mg PO QAM RF: 0 epinephrine 0.3 mg/0.3 mL Syringe 0.3 mg IM UD PRN (Reason: Allergic Reaction) RF: 0 theophylline 400 mg Tablet Extended Release 24 Hr 400 mg PO BID RF: 0 buspirone 10 mg Tablet 10 mg PO BID RF: 0 albuterol sulfate [Proventil HFA] 90 mcg/actuation Hfa Aerosol Inhaler 2 puff INHALATION Q6H PRN (Reason: Shortness Of Breath) RF: 0 atorvastatin 80 mg Tablet 80 mg PO QAM RF: 0 omeprazole 20 mg Tablet,Delayed Release (Dr/Ec) 20 mg PO QAM RF: 0 ferrous sulfate 325 mg (65 mg iron) Tablet 325 mg PO DAILY Qty: 0 RF: 0 morphine [MS Contin] 30 mg Tablet Extended Release 30 mg PO Q12H RF: 0 Admission Data Admit Date/Time: 11/10/20 01:57 Attending Provider: Hayder Hall Admit Provider: Wagner Pineda Primary Care Provider: Fanny Franks Other Providers: [facility] ; Wagner Pineda Coding Level of Care Code D/C Day Management >30 mins Diagnoses COPD with acute exacerbation J44.1 GERD (gastroesophageal reflux disease) K21.9 BPH (benign prostatic hyperplasia) N40.0 Chronic pain G89.29 Hyperlipidemia E78.5 Hypertension I10 Generalized anxiety disorder F41.1 Hx of venous thrombosis and embolism Z86.718 Bipolar disorder, unspecified F31.9
[2020-11-12 15:37] VITALS: BP 151/74; PULSE 70; TEMP 98.2; O2SAT 94
== END 2020-11-12 18:03 | disposition home or self-care (01) | DRG 192 ==
LOC: ED 23:03 → 2N 11-10 01:57 → SUATTDRO 11-10 01:57 → 2N 11-10 02:32

== ENCOUNTER 2021-03-05 16:49 | Inpatient (IN) ==
[2021-03-05] MEDS ORDERED: ONDANSETRON INJ 2 MG/ML 2 ML VIAL IV STA (17:12)
[2021-03-05] MEDS ORDERED: SODIUM CHLORIDE 0.9% 1000ML 1,000 ML IV STA (17:12)
--- NOTE | 2021-03-05 17:22 | Emergency Department Note ---
Impression & Plan Acute duodenitis, Vomiting, Hypercalcemia, Abnormal EKG ED Provider Note NAME: BRENDA ALLEN AGE: 65 SEX: M : 1955 ARRIVES VIA: Walk-In INFORMANT: Patient, ED PROVIDER(S): Fernando Freeman DO CHIEF COMPLAINT: Nausea vomiting HPI: The patient is a 65-year-old male who presented to the emergency department for an evaluation of nausea vomiting. The patient states that he began having nausea and vomiting over the course the last 14 hours. He denies having any chest pain. He denies having any difficulty breathing. He states mostly he has been vomiting stomach acid but also noticed some coffee grounds. The patient is a history of COPD as well as aortic valve disease. He has had no lower extremity swelling. He has had diarrhea as well. He describes diffuse abdominal cramping and pain. He denies having any headache or recent trauma. He has had no recent traveling. He had no exposure to COVID-19. The patient has a history of gallbladder surgery in the past. He states his symptoms are worsened with eating and drinking. He did not see his family doctor for the symptoms. ROS: See above HPI for pertinent positives & negatives. A total of 10 systems reviewed and were otherwise negative. PAST MEDICAL HISTORY: See Below PAST SURGICAL HISTORY: See Below FAMILY HISTORY: See Below SOCIAL HISTORY: See Below HOME MEDICATIONS: See Below ALLERGIES: See Below VITALS: See Below PHYSICAL EXAMINATION: GENERAL: The patient is awake and alert. The patient is very anxious appearing. EYES: The conjunctivae are clear. The pupils are round and reactive. EARS, NOSE, MOUTH AND THROAT: The nose is without any evidence of any deformity. Mucous membranes are dry. NECK: The neck is nontender and supple. RESPIRATORY: Normal respiratory effort is noted there is no evidence of wheezing rhonchi or rales CARDIOVASCULAR: Regular rate and rhythm noted there no murmurs rubs or gallops normal S1 normal S2. GASTROINTESTINAL: The abdomen is soft and nondistended. There is diffuse tenderness to palpation. There is no specific guarding rigidity. MUSCULOSKELETAL/EXTREMITIES: There is no evidence of gross deformity full range of motion is noted in the hips and shoulders. SKIN: There is no obvious evidence of any rash. There are no petechiae, pallor or cyanosis noted. NEUROLOGIC: Patient is awake alert and oriented x3 strength is symmetric patellar reflexes are 2+ bilaterally MEDICAL DECISION MAKING: The patient is a 65-year-old male who presented to the emergency department for an evaluation of nausea and vomiting. The patient had reproducible epigastric abdominal pain. He did not have guarding or rigidity. I discussed the patient' s laboratory and radiographic studies with him. He was treated with IV fluids and IV antiemetics but continued to have very significant symptoms. He was further treated with antibiotics. I discussed the patient's condition with the on-call [facility] hospitalist. They have agreed to evaluate the patient in the emergency department for further management and disposition. The patient was noted to have signs of duodenitis on CT. He does have a history of recent steroid use and it is possible that this could be the cause of his upper GI irritation. Triage Nursing notes reviewed. Prior medical records reviewed Vital Signs: reviewed and remarkable for elevated blood pressure. Differential diagnosis: Gastroenteritis, food borne illness, infections, appendicitis, diverticulitis, inflammatory bowel disease, obstruction, GI bleed, biliary pathology, volvulus, as well as other pathologies. ER treatment provided: See below Diagnostics interpreted by me: ECG: EKG was obtained in the emergency department. My interpretation is sinus rhythm at 83 bpm. Right bundle branch block pattern was noted. There was no ectopy. This was compared to a tracing from December 112020. No significant changes were noted. Cardiac Monitoring: An order was placed for continuous cardiac monitoring. The monitor shows a rate of 75 bpm with sinus rhythm. Laboratory studies: As stated above and show below. Imaging studies: See below Consultation(s): 2030: I discussed this case with Dr. Junior [facility] They will evaluate the patient in the emergency department. Past Med/Surg History Medical History Anxiety and depression Aortic valve defect Had AVR secondary to AR per patient "HAS MINIMAL LEAKING FROM PROSTHETIC COW AORTIC VALVE" Asthma Well controlled - inhalers daily and prn BPH (benign prostatic hyperplasia) Chronic obstructive pulmonary disease Deep vein thrombosis RT ARM 2018 (TREATED WITH ELIQUIS)- on AC x 6 months- then d/c'ed- no issues since. Did follow with heme- no known clotting issues - felt secondary to A-port- A port removed. GERD (gastroesophageal reflux disease) Well controlled and stable Hearing deficit Hyperlipidemia Hypertension Immunoglobulin G deficiency infusions monthly Lung nodules Following with pulm- getting repeat CT to monitor nodules 07/2020. Non-ST elevation AR (NSTEMI) Pulmonary embolism DX IN 2009 PVD (peripheral vascular disease) S/p angioplasties. On Plavix- cannot tolerate ASA Restless leg Sleep apnea No longer needs CPAP- was retested Surgical History History of angioplasty LEs and hand History of aortic valve replacement 2009 @ [facility] "currently failing at 50%"--follows with Dr. Ji in [place] History of bronchoscopy History of cholecystectomy History of colonoscopy History of esophagogastroduodenoscopy (EGD) History of phacoemulsification of cataract of both eyes with intraocular lens implantation History of right inguinal hernia repair History of umbilical hernia repair History of vascular access device PORT INSERTION/REMOVAL (DOES NOT HAVE CURRENTLY) Status post reverse arthroplasty of right shoulder (~04/2020) Family History Father Family history of diabetes mellitus Other No family history of adverse response to anesthesia Social History Smoking Status: Former smoker Tobacco Type: Cigarettes Second Hand Exposure: Yes (parents smoked); Hx Alcohol Use: No Hx Substance Use: No Preferred Language: Mexican Communication Ability: Effective Lieutenant General Required: No Beliefs That Will Affect Care: None marital status: Current Living Situation: Spouse Current Living Situation Comment: Feels Safe at Home: Yes Assistive Devices: Oxygen - Continuous Allergies Allergies Allergy/AdvReac Type Severity Reaction Status Date / Time NSAIDS (Non-Steroidal Allergy Intermediate Hives Verified 03/05/21 19:35 Anti-Inflamma aspirin Allergy Mild RASH,HIVES Verified 03/05/21 19:35 Home Meds Home Medications Medication Instructions Recorded Confirmed budesonide-formoterol [Symbicort] 2 puff INHALATION BID #0 inhaler 06/05/14 03/05/21 finasteride [Proscar] 5 mg PO QAM #0 tab 06/05/14 03/05/21 oxycodone 5 mg PO BID PRN #0 06/04/15 03/05/21 sertraline [Zoloft] 200 mg PO QAM 90 Days #90 tab 06/04/15 03/05/21 Spiriva with HandiHaler 1 cap INHALATION QAM 30 Days #30 02/03/18 03/05/21 cap albuterol sulfate 2.5 mg INHALATION QID PRN #0 dose 02/03/18 03/05/21 albuterol sulfate [Proventil HFA] 2 puff INHALATION Q6H PRN 01/16/19 03/05/21 atorvastatin 80 mg PO QAM 01/16/19 03/05/21 buspirone 10 mg PO BID 01/16/19 03/05/21 omeprazole 20 mg PO QAM 01/16/19 03/05/21 theophylline 400 mg PO BID 01/16/19 03/05/21 carvedilol 12.5 mg PO BID 04/18/20 03/05/21 epinephrine 0.3 mg IM UD PRN 04/18/20 03/05/21 hydrochlorothiazide 25 mg PO QAM 04/18/20 03/05/21 nitroglycerin 0.4 mg SUBLINGUAL UD PRN 04/18/20 03/05/21 morphine [MS Contin] 30 mg PO Q12H 11/10/20 03/05/21 ferrous sulfate 325 mg PO QAM 12/11/20 03/05/21 Previous Rx's Medication Instructions Recorded Saccharomyces boulardii [Florastor] 250 mg PO BID #20 cap 12/11/20 Results & Data (ED) Vital Signs Vital Signs - 24 hr 03/05/21 16:59 03/05/21 17:17 03/05/21 17:18 Temperature 36.4 C L Temperature Source Temporal Artery Scan Pulse Rate 98 H 88 86 Pulse Rate from SpO2 Sensor 85 Pulse Rhythm Regular Respiratory Rate 24 16 17 Blood Pressure 140/97 Blood Pressure Mean 111 Pulse Oximetry 100 100 98 Oxygen Delivery Method Room Air Room Air Sepsis Recent Fever Within 48 Hours No Sepsis New/Unexplained Change in Mental Status No Sepsis Action Taken by Nursing No Action Required 03/05/21 18:40 03/05/21 19:00 03/05/21 19:30 Temperature Temperature Source Pulse Rate 80 80 80 Pulse Rate from SpO2 Sensor 80 81 Pulse Rhythm Respiratory Rate 24 22 20 Blood Pressure 148/85 H 144/78 H 159/82 H Blood Pressure Mean 106 100 107 Pulse Oximetry 99 92 96 Oxygen Delivery Method Sepsis Recent Fever Within 48 Hours Sepsis New/Unexplained Change in Mental Status Sepsis Action Taken by Nursing 03/05/21 20:23 03/05/21 20:31 03/05/21 21:03 Temperature Temperature Source Pulse Rate 88 88 82 Pulse Rate from SpO2 Sensor 90 87 82 Pulse Rhythm Respiratory Rate 16 23 22 Blood Pressure 143/83 H Blood Pressure Mean 103 Pulse Oximetry 99 100 97 Oxygen Delivery Method Sepsis Recent Fever Within 48 Hours Sepsis New/Unexplained Change in Mental Status Sepsis Action Taken by Nursing 03/05/21 21:10 03/05/21 21:20 03/05/21 21:30 Temperature Temperature Source Pulse Rate 81 83 81 Pulse Rate from SpO2 Sensor 78 82 81 Pulse Rhythm Respiratory Rate 19 18 20 Blood Pressure Blood Pressure Mean Pulse Oximetry 97 95 97 Oxygen Delivery Method Sepsis Recent Fever Within 48 Hours Sepsis New/Unexplained Change in Mental Status Sepsis Action Taken by Nursing 03/05/21 21:40 03/05/21 21:50 03/05/21 22:00 Temperature Temperature Source Pulse Rate 82 83 75 Pulse Rate from SpO2 Sensor 84 78 Pulse Rhythm Respiratory Rate 19 23 16 Blood Pressure Blood Pressure Mean Pulse Oximetry 96 96 98 Oxygen Delivery Method Sepsis Recent Fever Within 48 Hours Sepsis New/Unexplained Change in Mental Status Sepsis Action Taken by Nursing 03/05/21 22:10 03/05/21 22:20 03/05/21 22:30 Temperature Temperature Source Pulse Rate 75 76 75 Pulse Rate from SpO2 Sensor 74 76 75 Pulse Rhythm Respiratory Rate 15 11 L 20 Blood Pressure Blood Pressure Mean Pulse Oximetry 98 96 96 Oxygen Delivery Method Sepsis Recent Fever Within 48 Hours Sepsis New/Unexplained Change in Mental Status Sepsis Action Taken by Nursing 03/05/21 22:40 03/05/21 22:50 Temperature Temperature Source Pulse Rate 71 73 Pulse Rate from SpO2 Sensor Pulse Rhythm Respiratory Rate 16 20 Blood Pressure Blood Pressure Mean Pulse Oximetry 96 96 Oxygen Delivery Method Room Air Sepsis Recent Fever Within 48 Hours Sepsis New/Unexplained Change in Mental Status Sepsis Action Taken by [place] Medications Current Medication List: was personally reviewed by me Laboratory Data Attestation: I reviewed the patient's lab results. Result diagrams: 03/05/21 Unknown 03/05/21 Unknown Lab Results 03/05/21 03/05/21 03/05/21 Range/Units 21:32 21:32 Unknown WBC 10.71 (4.8-10.8) K/uL RBC 5.73 (4.7-6.1) M/uL Hgb 16.4 (14.0-18.0) g/dL Hct 46.6 (42-52) % MCV 81.3 (80-100) fL MCH 28.6 (25-34) pg MCHC 35.2 (32-36) g/dL RDW Std Deviation 40.9 (36.4-46.3) fL RDW Coeff of Rosario 14.0 (11.5-14.5) % Plt Count 393 (130-400) K/uL MPV 9.6 (7.4-10.4) fL Immature Gran % (Auto) 0.2 % Neut % (Auto) 86.6 % Lymph % (Auto) 7.5 % [place] % (Auto) 5.5 % Eos % (Auto) 0.1 % Baso % (Auto) 0.1 % Neut # (Auto) 9.28 H (1.4-6.5) K/uL Lymph # (Auto) 0.80 L (1.2-3.4) K/uL [place] # (Auto) 0.59 (0.11-0.59) K/uL Eos # (Auto) 0.01 (0-0.5) K/uL Baso # (Auto) 0.01 (0-0.2) K/uL Immature Gran # (Auto) 0.02 (0.00-0.02) K/uL Sodium (136-145) mmol/L Potassium (3.5-5.1) mmol/L Chloride (98-107) mmol/L Carbon Dioxide (21-32) mmol/L Anion Gap (3-11) BUN (7-18) mg/dl Creatinine (0.6-1.4) mg/dl Est Cr Clr Drug Dosing ml/min Est GFR ( Amer) ml/min Est GFR (Non-Af Amer) ml/min BUN/Creatinine Ratio (10-20) Glucose (70-99) mg/dl Calcium (8.5-10.1) mg/dl Total Bilirubin (0.2-1) mg/dl AST (15-37) U/L ALT (12-78) U/L Alkaline Phosphatase (45-117) U/L Troponin I (0-0.045) ng/ml Total Protein (6.4-8.2) gm/dl Albumin (3.4-5.0) gm/dl Globulin (2.5-4.0) gm/dl Albumin/Globulin Ratio (0.9-2) Lipase (73-393) U/L Theophylline (10-20) mcg/ml COVID-19 Eval Order Covid19 at [facility] SARS-CoV-2 (PCR) NEGATIVE (Negative) 03/05/21 03/05/21 Range/Units Unknown Unknown WBC (4.8-10.8) K/uL RBC (4.7-6.1) M/uL Hgb (14.0-18.0) g/dL Hct (42-52) % MCV (80-100) fL MCH (25-34) pg MCHC (32-36) g/dL RDW Std Deviation (36.4-46.3) fL RDW Coeff of Rosario (11.5-14.5) % Plt Count (130-400) K/uL MPV (7.4-10.4) fL Immature Gran % (Auto) % Neut % (Auto) % Lymph % (Auto) % [place] % (Auto) % Eos % (Auto) % Baso % (Auto) % Neut # (Auto) (1.4-6.5) K/uL Lymph # (Auto) (1.2-3.4) K/uL [place] # (Auto) (0.11-0.59) K/uL Eos # (Auto) (0-0.5) K/uL Baso # (Auto) (0-0.2) K/uL Immature Gran # (Auto) (0.00-0.02) K/uL Sodium 136 (136-145) mmol/L Potassium 3.5 (3.5-5.1) mmol/L Chloride 98 (98-107) mmol/L Carbon Dioxide 32 (21-32) mmol/L Anion Gap 6.0 (3-11) BUN 16 (7-18) mg/dl Creatinine 1.16 (0.6-1.4) mg/dl Est Cr Clr Drug Dosing 52.4 ml/min Est GFR ( Amer) 75.6 ml/min Est GFR (Non-Af Amer) 65.3 ml/min BUN/Creatinine Ratio 13.9 (10-20) Glucose 138 H (70-99) mg/dl Calcium 10.5 H (8.5-10.1) mg/dl Total Bilirubin 1.1 H (0.2-1) mg/dl AST 43 H (15-37) U/L ALT 32 (12-78) U/L Alkaline Phosphatase 89 (45-117) U/L Troponin I < 0.015 (0-0.045) ng/ml Total Protein 9.4 H (6.4-8.2) gm/dl Albumin 4.8 (3.4-5.0) gm/dl Globulin 4.6 H (2.5-4.0) gm/dl Albumin/Globulin Ratio 1.0 (0.9-2) Lipase 97 (73-393) U/L Theophylline 14 (10-20) mcg/ml COVID-19 Eval Order SARS-CoV-2 (PCR) (Negative) Administered Medications Discontinued Medications Diphenhydramine HCl (Diphenhydramine 50 Mg/Ml Vial) 25 mg IV NOW STA Stop: 03/05/21 21:01 Last Admin: 03/05/21 22:09 Dose: Not Given Documented by: [id number] Haloperidol Lactate (Haloperidol Lactate 5 Mg/Ml 1 Ml Vial) 2.5 mg IM NOW STA Stop: 03/05/21 21:31 Last Admin: 03/05/21 22:24 Dose: Not Given Documented by: [id number] Sodium Chloride (Nss 1000ml) 1,000 mls @ 999 mls/hr IV .Q1H1M STA Stop: 03/05/21 18:12 Last Infusion: 03/05/21 18:35 Dose: 0 mls/hr Documented by: [id number] Admin: 03/05/21 17:34 Dose: 999 mls/hr Documented by: [id number] Promethazine HCl (Phenergan) 12.5 mg in 50.5 mls @ 202 mls/hr IV NOW STA Stop: 03/05/21 18:42 Last Infusion: 03/05/21 19:05 Dose: 0 mls/hr Documented by: [id number] Admin: 03/05/21 18:41 Dose: 202 mls/hr Documented by: [id number] Pantoprazole Sodium 40 mg/ (Syringe) 10 mls @ 5 mls/min IV NOW ONE Stop: 03/05/21 20:18 Last Admin: 03/05/21 21:25 Dose: 5 mls/min Documented by: [id number] Famotidine (Pepcid 20mg Iv Push) 20 mg in 5 mls @ 2.5 mls/min IV NOW STA Stop: 03/05/21 20:18 Last Admin: 03/05/21 20:47 Dose: 2.5 mls/min Documented by: [id number] Piperacillin Sod/Tazobactam Sod (Zosyn) 4.5 gm in 120 mls @ 240 mls/hr IV NOW ONE Stop: 03/05/21 20:58 Last Infusion: 03/05/21 21:24 Dose: 0 mls/hr Documented by: [id number] Admin: 03/05/21 20:53 Dose: 240 mls/hr Documented by: [id number] Multivitamins 10 ml/ Thiamine HCl 100 mg/ Folic Acid 1 mg/Sodium Chloride 1 ,011.2 mls @ 1,011.2 mls/hr IV .Q1H ONE Stop: 03/05/21 22:44 Last Admin: 03/05/21 21:59 Dose: 1,011.2 mls/hr Documented by: [id number] Ioversol (Optiray 320 100ml) 94 ml IV ONCE ONE Stop: 03/05/21 19:40 Last Admin: 03/05/21 19:40 Dose: 94 ml Documented by: [id number] Ondansetron HCl (Ondansetron Inj 2 Mg/Ml 2 Ml Vial) 4 mg IV NOW STA Stop: 03/05/21 17:13 Last Admin: 03/05/21 17:33 Dose: 4 mg Documented by: [id number] Imaging Data Radiologist's Impression: Chest X-Ray 03/05/21 17:12 XR chest 1V portable CLINICAL HISTORY: vomiting COMPARISON STUDY: December 11, 2020 FINDINGS: No pneumothorax. No pleural effusion. No large infiltrates or consolidative lesions are seen. Bilateral lungs are slightly hyperinflated. Cardiomediastinal silhouette is within normal limits in size. No significant pulmonary vascular congestion.. Osseous structures: Redemonstration of the prosthetic right shoulder joint and midline sternotomy wires. IMPRESSION: 1. No large infiltrates or consolidative lesions. Mild hyperinflation. ACT 112: Negative or not required by law. The above report was generated using voice recognition software. It may contain grammatical, syntax or spelling errors. Electronically signed by: Mackenzie Alexander DO 03/05/2021 7:23 PM KUB X-Ray 03/05/21 17:12 XR KUB/Abdomen 1 view CLINICAL HISTORY: vomiting COMPARISON STUDY: August 01, 2010 FINDINGS: Multiple nondilated stool and gas filled loops of bowel are seen. No definite free intra-abdominal gas demonstrated however evaluation is limited on this supine exam. Cholecystectomy clips and vascular calcifications are seen. IMPRESSION: 1. Nonobstructive bowel gas pattern. ACT 112: Negative or not required by law. The above report was generated using voice recognition software. It may contain grammatical, syntax or spelling errors. Electronically signed by: Mackenzie Alexander DO 03/05/2021 7:21 PM Abdomen/Pelvis CT 03/05/21 18:45 CT abd pelvis IV con only CLINICAL HISTORY: vomiting COMPARISON STUDY: None. TECHNIQUE: A dose lowering technique was utilized adhering to the principles of ALARA. CT DOSE: 301.23 mGy.cm FINDINGS: Lower chest: Severe emphysema. Evaluation of lung parenchyma is limited due to motion artifact.. Liver: The contrast-enhanced liver is normal in size, contour, and attenuation. There is no intrahepatic biliary ductal dilatation. The hepatic veins and portal veins are patent. Gallbladder: Is surgically absent. Spleen: Normal in size and attenuation. Pancreas: Fatty infiltration of pancreatic parenchyma is seen. Overall evaluation of upper abdomen is slightly limited due to motion artifact. Adrenal glands: Unremarkable. Kidneys: There is symmetric renal cortical enhancement. The kidneys are normal in size without hydronephrosis.2.3 cm cyst is seen within inferior aspect of the right kidney. Pelvic viscera: Urinary bladder is partially decompressed. Ureteral jet is seen within its lumen. Prostate gland is not enlarged. Bowel: Bowel loops are nondilated. First portion of duodenum is normal in caliber with intraluminal fluid content. Mild possible thickening of its wall with mucosal enhancement and surrounding fat stranding is seen which might represent duodenitis (3/147). Loops of small bowel are fluid-filled and within upper limits of normal with mild diffuse enhancement of mucosa which could be seen in diarrheal state or represent mild enteritis. Questionable area of increase attenuation within loop of small bowel is seen within pelvic region which might represent ingested material versus other etiology (3/361). Diverticulosis of sigmoid colon is seen without evidence of diverticulitis. Loops of proximal large bowel are collapsed. Appendix is not well seen. Peritoneum: There is no intraperitoneal free air or abdominal ascites. Vasculature: The abdominal aorta is normal in course and caliber. Adenopathy: None. Skeletal structures: Multilevel degenerative changes of the spine. Few sclerotic lesions are seen within sacrum (3/302) IMPRESSION: 1. Fluid-filled nondilated loops of small bowel with prominent mucosal enhancement might represent enteritis or diarrheal state. Thickening of duodenal wall surrounding inflammatory changes likely represent duodenitis. 2. Emphysema 3. Diverticulosis of sigmoid colon without evidence of diverticulitis. 4. Additional findings as above. ACT 112: Negative or not required by law. The above report was generated using voice recognition software. It may contain grammatical, syntax or spelling errors. Electronically signed by: Mackenzie Alexander DO 03/05/2021 8:10 PM Discharge Plan Visit Data Chief Complaint: Vomiting Stated Complaint: VOMITING, DIARREHIA ED Provider: Fernando Freeman Discharge Problem: Acute duodenitis, Vomiting, Hypercalcemia, Abnormal EKG Patient Disposition: Being Evaluated by Hospitalist Condition: Good Forms Stand Alone Forms: My [facility] [employer] Prescriptions Prescriptions: No Action finasteride [Proscar] 5 mg Tablet 5 mg PO QAM Qty: 0 RF: 0 budesonide-formoterol [Symbicort] 160-4.5 mcg/actuation Hfa Aerosol Inhaler 2 puff INHALATION BID Qty: 0 RF: 0 sertraline [Zoloft] 100 mg Tablet 200 mg PO QAM 90 Days Qty: 90 RF: 1 oxycodone 5 mg Tablet 5 mg PO BID PRN (Reason: Pain) Qty: 0 RF: 0 albuterol sulfate 2.5 mg /3 mL (0.083 %) Solution For Nebulization 2.5 mg INHALATION QID PRN (Reason: Wheezing) Qty: 0 RF: 0 Spiriva with HandiHaler 18 mcg Capsule, W/Inhalation Device 1 cap INHALATION QAM 30 Days Qty: 30 RF: 3 carvedilol 25 mg Tablet 12.5 mg PO BID RF: 0 nitroglycerin 0.4 mg Tablet, Sublingual 0.4 mg sublingual UD PRN (Reason: Chest Pain) RF: 0 hydrochlorothiazide 25 mg Tablet 25 mg PO QAM RF: 0 epinephrine 0.3 mg/0.3 mL Syringe 0.3 mg IM UD PRN (Reason: Allergic Reaction) RF: 0 theophylline 400 mg Tablet Extended Release 24 Hr 400 mg PO BID RF: 0 buspirone 10 mg Tablet 10 mg PO BID RF: 0 albuterol sulfate [Proventil HFA] 90 mcg/actuation Hfa Aerosol Inhaler 2 puff INHALATION Q6H PRN (Reason: Shortness Of Breath) RF: 0 atorvastatin 80 mg Tablet 80 mg PO QAM RF: 0 omeprazole 20 mg Tablet,Delayed Release (Dr/Ec) 20 mg PO QAM RF: 0 morphine [MS Contin] 30 mg Tablet Extended Release 30 mg PO Q12H RF: 0 ferrous sulfate 325 mg (65 mg iron) tablet 325 mg PO QAM RF: 0 Saccharomyces boulardii [Florastor] 250 mg capsule 250 mg PO BID Qty: 20 RF: 0 Referrals Referrals: Fanny Franks PA-C [Primary Care Provider] -
[2021-03-05 17:45] LABS: Basophils # (auto) 0.01 K/uL (0-0.2); Basophils % (auto) 0.1 %; Eosinophils # (auto) 0.01 K/uL (0-0.5); Eosinophils % (auto) 0.1 %; Hematocrit (blood only) 46.6 % (42-52); Hemoglobin 16.4 g/dL (14.0-18.0); Immature Granulocytes # (auto) 0.02 K/uL (0.00-0.02); Immature Granulocytes % (auto) 0.2 %; Lymphocytes % (auto) 7.5 %; Mean Corpuscular Hemoglobin 28.6 pg (25-34); Mean Corpuscular Hgb Conc 35.2 g/dL (32-36); Mean Corpuscular Volume 81.3 fL (80-100); Mean Platelet Volume 9.6 fL (7.4-10.4); Monocytes # (auto) 0.59 K/uL (0.11-0.59); Monocytes % (auto) 5.5 %; Neutrophils # (auto) 9.28 K/uL (1.4-6.5); Neutrophils % (auto) 86.6 %; Platelet Count 393 K/uL (130-400); RDW Standard Deviation 40.9 fL (36.4-46.3); Red Blood Count 5.73 M/uL (4.7-6.1); White Blood Count 10.71 K/uL (4.8-10.8)
[2021-03-05 18:10] LABS: Alanine Aminotransferase 32 U/L (12-78); Albumin Level 4.8 gm/dl (3.4-5.0); Aspartate Aminotransferase 43 U/L (15-37); BUN Creatinine Ratio 13.9 (10-20); Blood Urea Nitrogen 16 mg/dl (7-18); Calcium 10.5 mg/dl (8.5-10.1); Carbon Dioxide 32 mmol/L (21-32); Chloride 98 mmol/L (98-107); Creatinine Clr Calc Pharmacy 52.4 ml/min; Est GFR (African American) 75.6 ml/min; Est GFR (Non-African American) 65.3 ml/min; Glucose 138 mg/dl (70-99); Lipase 97 U/L (73-393); Potassium 3.5 mmol/L (3.5-5.1); Sodium 136 mmol/L (136-145)
[2021-03-05 18:17] LABS: Alkaline Phosphatase 89 U/L (45-117); Bilirubin,Total 1.1 mg/dl (0.2-1); Globulin 4.6 gm/dl (2.5-4.0); Total Protein 9.4 gm/dl (6.4-8.2); Troponin I < 0.015 ng/ml (0-0.045)
[2021-03-05] MEDS ORDERED: PROMETHAZINE 12.5 MG/50.5 ML BAG IV STA (18:28)
--- NOTE | 2021-03-05 19:22 | XRay Report ---
XR KUB/Abdomen 1 view CLINICAL HISTORY: vomiting COMPARISON STUDY: August 01, 2010 FINDINGS: Multiple nondilated stool and gas filled loops of bowel are seen. No definite free intra-abdominal gas demonstrated however evaluation is limited on this supine exam. Cholecystectomy clips and vascular calcifications are seen. IMPRESSION: 1. Nonobstructive bowel gas pattern. ACT 112: Negative or not required by law. The above report was generated using voice recognition software. It may contain grammatical, syntax o r spelling errors. Electronically signed by: Mackenzie Alexander DO 03/05/2021 7:21 PM
--- NOTE | 2021-03-05 19:24 | XRay Report ---
XR chest 1V portable CLINICAL HISTORY: vomiting COMPARISON STUDY: December 11, 2020 FINDINGS: No pneumothorax. No pleural effusion. No large infiltrates or consolidative lesions are seen. Bilateral lungs are slightly hyperinflated. Cardiomediastinal silhouette is within normal limits in size. No significant pulmonary vascular congestion.. Osseous structures: Redemonstration of the prosthetic right shoulder joint and midline sternotomy wi res. IMPRESSION: 1. No large infiltrates or consolidative lesions. Mild hyperinflation. ACT 112: Negative or not required by law. The above report was generated using voice recognition software. It may contain grammatical, syntax o r spelling errors. Electronically signed by: Mackenzie Alexander DO 03/05/2021 7:23 PM
[2021-03-05] MEDS ORDERED: OPTIRAY 320 100ml IV ONE (19:39)
--- NOTE | 2021-03-05 20:11 | CT Scan Report ---
CT abd pelvis IV con only CLINICAL HISTORY: vomiting COMPARISON STUDY: None. TECHNIQUE: A dose lowering technique was utilized adhering to the principles of ALARA. CT DOSE: 301.23 mGy.cm FINDINGS: Lower chest: Severe emphysema. Evaluation of lung parenchyma is limited due to motion artifact.. Liver: The contrast-enhanced liver is normal in size, contour, and attenuation. There is no intrahepa tic biliary ductal dilatation. The hepatic veins and portal veins are patent. Gallbladder: Is surgically absent. Spleen: Normal in size and attenuation. Pancreas: Fatty infiltration of pancreatic parenchyma is seen. Overall evaluation of upper abdomen is slightly limited due to motion artifact. Adrenal glands: Unremarkable. Kidneys: There is symmetric renal cortical enhancement. The kidneys are normal in size without hydron ephrosis.2.3 cm cyst is seen within inferior aspect of the right kidney. Pelvic viscera: Urinary bladder is partially decompressed. Ureteral jet is seen within its lumen. Pro state gland is not enlarged. Bowel: Bowel loops are nondilated. First portion of duodenum is normal in caliber with intraluminal f luid content. Mild possible thickening of its wall with mucosal enhancement and surrounding fat stran ding is seen which might represent duodenitis (3/147). Loops of small bowel are fluid-filled and with in upper limits of normal with mild diffuse enhancement of mucosa which could be seen in diarrheal st ate or represent mild enteritis. Questionable area of increase attenuation within loop of small bowel is seen within pelvic region whi ch might represent ingested material versus other etiology (3/361). Diverticulosis of sigmoid colon is seen without evidence of diverticulitis. Loops of proximal large b owel are collapsed. Appendix is not well seen. Peritoneum: There is no intraperitoneal free air or abdominal ascites. Vasculature: The abdominal aorta is normal in course and caliber. Adenopathy: None. Skeletal structures: Multilevel degenerative changes of the spine. Few sclerotic lesions are seen wit hin sacrum (3/302) IMPRESSION: 1. Fluid-filled nondilated loops of small bowel with prominent mucosal enhancement might represent e nteritis or diarrheal state. Thickening of duodenal wall surrounding inflammatory changes likely repr esent duodenitis. 2. Emphysema 3. Diverticulosis of sigmoid colon without evidence of diverticulitis. 4. Additional findings as above. ACT 112: Negative or not required by law. The above report was generated using voice recognition software. It may contain grammatical, syntax o r spelling errors. Electronically signed by: Mackenzie Alexander DO 03/05/2021 8:10 PM
[2021-03-05] MEDS ORDERED: FAMOTIDINE 20MG IV PUSH 20 MG/5 ML SYR IV STA (20:17)
[2021-03-05] MEDS ORDERED: PANTOprazole 40 MG in SYRINGE 0 ML IV ONE (20:17)
[2021-03-05] MEDS ORDERED: PIPERACILLIN/TAZOBACTAM 4.5 GM/120 ML BAG IV ONE (20:29)
[2021-03-05] MEDS ORDERED: PIPERACILL/TAZOBAC CONSULT ACTIVE PRN (20:29)
[2021-03-05] MEDS ORDERED: diphenhydrAMINE 50 MG/ML VIAL IV STA (21:00)
[2021-03-05] MEDS ORDERED: HALOPERIDOL LACTATE 5 MG/ML 1 ML VIAL IV STA (21:29)
[2021-03-05] MEDS ORDERED: HALOPERIDOL LACTATE 5 MG/ML 1 ML VIAL IM STA (21:30)
[2021-03-05] MEDS ORDERED: MULTI-VITAMIN INFUSION 10 ML, THIAMINE HCL 100 MG, FOLIC ACID 1 MG in SODIUM CHLORIDE 0... IV ONE (21:45)
--- NOTE | 2021-03-05 21:50 | History & Physical Report ---
Date of Service March 05, 2021 Assessment & Plan (1) Acute duodenitis: 65 yo M Hx chronic back pain on chronic opiates, GERD, HTN, HLN, HU, depression, COPD/emphysema admitted for acute duodenitis with intractable nausea and vomiting. Acute duodenitis: - Presents with 2 days of nausea, vomiting, diarrhea. - Last food eaten was tomato soup. No fevers or chills, no sick contacts. - Labwork with no; leukocytosis, noted to have elevated Tbili to 1.1. - CTAP showed mild thickening, mucosal enhancement, and surrounding fat stranding (possible duodenitis), as well as diffuse mucosal enhancement seen in diarrheal state / mild enteritis. Gallbladder surgically absent. - Stool studies ordered. - NPO except meds and ice chips; received NSS 1L bolus and will give banana bag given two days no intake. - Will bolus reassess for fluids rather than continuous rate, as patient reports recent Echo showed "decreased function". - Advance diet as tolerated. - Continue Zosyn for now. - Antiemetics as needed, with care to prolonged QT. Chronic pain: - Takes morphine and oxycodone at home for chronic back pain. - PDMP reviewed, will continue medications. - Has not missed doses and do not think current admission is related to withdrawal. COPD: - History of, not on daily oxygen. - Continue Symbicort, Spiriva, albuterol. Anxiety, depression: - Continue sertraline, Buspar. GERD: - Continue PPI. HTN, HLD: - Continue home meds. Code Status: FULL CODE FEN: NPO, fluids as above, advance diet as tolerated DVT ppx: Lovenox Dispo: Med/Surg (2) GERD (gastroesophageal reflux disease): (3) Chronic pain: (4) Hyperlipidemia: (5) Hypertension: (6) Generalized anxiety disorder: (7) COPD (chronic obstructive pulmonary disease): History of Present Illness Chief Complaint: nausea and vomiting Primary Care Provider: Fanny Franks 65 yo M Hx chronic back pain on chronic opiates, GERD, HTN, HLN, HU, depression, COPD/emphysema presented to the ER for about 2 days of nausea and vomiting, associated anorexia. Denies chest pain, SOB, abdominal pain, recent sick contacts. Recalls that the last thing he ate was tomato soup two days ago. In the ER patient was hemodynamically stable, with labwork showing normal WBC, elevated Tbili, normal lipase. CTAP showed findings suggestive of duodenitis. Despite several antiemetics in the ER patient was having significant nausea and hospitalist service was consulted for admission. Allergies Allergy/AdvReac Type Severity Reaction Status Date / Time NSAIDS (Non-Steroidal Allergy Intermediate Hives Verified 03/05/21 19:35 Anti-Inflamma aspirin Allergy Mild RASH,HIVES Verified 03/05/21 19:35 Home Medications Medication Instructions Recorded Confirmed Type budesonide-formoterol [Symbicort] 2 puff INHALATION BID #0 inhaler 06/05/14 03/05/21 History finasteride [Proscar] 5 mg PO QAM #0 tab 06/05/14 03/05/21 History oxycodone 5 mg PO BID PRN #0 06/04/15 03/05/21 History sertraline [Zoloft] 200 mg PO QAM 90 Days #90 tab 06/04/15 03/05/21 History Spiriva with HandiHaler 1 cap INHALATION QAM 30 Days #30 02/03/18 03/05/21 History cap albuterol sulfate 2.5 mg INHALATION QID PRN #0 dose 02/03/18 03/05/21 History albuterol sulfate [Proventil HFA] 2 puff INHALATION Q6H PRN 01/16/19 03/05/21 History atorvastatin 80 mg PO QAM 01/16/19 03/05/21 History buspirone 10 mg PO BID 01/16/19 03/05/21 History omeprazole 20 mg PO QAM 01/16/19 03/05/21 History theophylline 400 mg PO BID 01/16/19 03/05/21 History carvedilol 12.5 mg PO BID 04/18/20 03/05/21 History epinephrine 0.3 mg IM UD PRN 04/18/20 03/05/21 History hydrochlorothiazide 25 mg PO QAM 04/18/20 03/05/21 History nitroglycerin 0.4 mg SUBLINGUAL UD PRN 04/18/20 03/05/21 History morphine [MS Contin] 30 mg PO Q12H 11/10/20 03/05/21 History Saccharomyces boulardii [Florastor] 250 mg PO BID #20 cap 12/11/20 03/05/21 Rx ferrous sulfate 325 mg PO QAM 12/11/20 03/05/21 History Past Med/Surg History Medical History Anxiety and depression Aortic valve defect Had AVR secondary to AR per patient "HAS MINIMAL LEAKING FROM PROSTHETIC COW AORTIC VALVE" Asthma Well controlled - inhalers daily and prn BPH (benign prostatic hyperplasia) Chronic obstructive pulmonary disease Deep vein thrombosis RT ARM 2018 (TREATED WITH ELIQUIS)- on AC x 6 months- then d/c'ed- no issues since. Did follow with heme- no known clotting issues - felt secondary to A-port- A port removed. GERD (gastroesophageal reflux disease) Well controlled and stable Hearing deficit Hyperlipidemia Hypertension Immunoglobulin G deficiency infusions monthly Lung nodules Following with pulm- getting repeat CT to monitor nodules 07/2020. Non-ST elevation VA (NSTEMI) Pulmonary embolism DX IN 2009 PVD (peripheral vascular disease) S/p angioplasties. On Plavix- cannot tolerate ASA Restless leg Sleep apnea No longer needs CPAP- was retested Surgical History History of angioplasty LEs and hand History of aortic valve replacement 2009 @ [facility] "currently failing at 50%"--follows with Dr. Ji in [place] History of bronchoscopy History of cholecystectomy History of colonoscopy History of esophagogastroduodenoscopy (EGD) History of phacoemulsification of cataract of both eyes with intraocular lens implantation History of right inguinal hernia repair History of umbilical hernia repair History of vascular access device PORT INSERTION/REMOVAL (DOES NOT HAVE CURRENTLY) Status post reverse arthroplasty of right shoulder (~04/2020) Family History Father Family history of diabetes mellitus Other No family history of adverse response to anesthesia Social History Smoking Status: Former smoker Tobacco Type: Cigarettes Smoking End Date: 2009; Second Hand Exposure: Yes (parents smoked); Hx Alcohol Use: No Hx Substance Use: No Preferred Language: Upper Sorbian Communication Ability: Effective Axle Bearing Polisher Required: No Beliefs That Will Affect Care: Islam Islam Beliefs: WORSHIP marital status: Current Living Situation: Spouse Current Living Situation Comment: Other Information That Helps Us Care for You: No Feels Safe at Home: Yes Safety Concerns: Feels Safe At This Time Assistive Devices: Denture - Upper, Denture - Lower, Hearing Aid - Bilateral and Oxygen - at Night Review of Systems Review of Systems: All systems reviewed & are unremarkable except as noted in HPI & below Constitutional: no fever, no chills and no malaise Respiratory: no cough and no dyspnea Cardiovascular: no chest pain, no palpitations and no edema Gastrointestinal: + nausea, + vomiting and + diarrhea/loose stools; no abdominal pain, no constipation and no blood in stools Physical Exam Constitutional: WD/WN, vitals as above Eyes: PERRL, conjunctivae normal, anicteric sclerae ENMT: external ear and nose normal, oropharynx normal Neck: normal visual inspection Respiratory: normal respiratory effort Auscultation: no crackles and no wheezes Cardiovascular: Rate/Rhythm: regular rate and regular rhythm Heart Sounds: + murmur (systolic 2/6 RUSB) Gastrointestinal (Abdomen): normal bowel sounds, soft, nontender, no hepatosplenomegaly Musculoskeletal: no cyanosis or clubbing, extremities motor strength 5/5 Skin: no rashes, warm and dry Neurologic: AAOx3, normal speech. No tremor. No ataxia. Psychiatric: A+Ox3, euthymic affect Results & Data Results & Data ([facility]) Vital Signs (Past 12 Hours) Vital Signs Temp Pulse Resp BP Pulse Ox 03/05/21 21:30 81 20 97 03/05/21 21:20 83 18 95 03/05/21 21:10 81 19 97 03/05/21 21:03 82 22 97 03/05/21 20:31 88 23 143/83 H 100 03/05/21 20:23 88 16 99 03/05/21 19:30 80 20 159/82 H 96 03/05/21 19:00 80 22 144/78 H 92 03/05/21 18:40 80 24 148/85 H 99 03/05/21 17:18 86 17 98 03/05/21 17:17 88 16 140/97 100 03/05/21 16:59 36.4 C L 98 H 24 100 Code Status & VTE Plan VTE Prophylaxis Plan VTE Prophylaxis will be ordered: Yes Resident Activity Tracking Resident Involvement: Resident Care Provided Care Provided: Adult Hospital Medicine
[2021-03-05] MEDS ORDERED: ALBUTEROL 0.083% NEBU SOLN 3 ML VIAL INH PRN (23:32)
[2021-03-05] MEDS ORDERED: ALBUTEROL HFA 8 GM INHALER INH PRN (23:32)
[2021-03-05] MEDS ORDERED: NITROGLYCERIN SL 0.4 MG/TAB TAB SL PRN (23:32)
[2021-03-05] MEDS ORDERED: ACETAMINOPHEN 325 MG TAB PO PRN (23:32)
[2021-03-06] MEDS: ENOXAPARIN INJ 40 MG/0.4 ML SYR SQ SCH ×2 (00:38→21:06)
[2021-03-06] MEDS: MoRPHine SULFATE CR 15 MG TABCR PO SCH ×3 (00:39→21:05)
[2021-03-06] MEDS: MELATONIN 3 MG TAB PO PRN ×2 (00:46→21:07)
[2021-03-06] MEDS ORDERED: PIPERACILLIN/TAZOBACTAM 3.375 GM in DEXTROSE 5% 100 ML IV SCH (02:00)
--- NOTE | 2021-03-06 05:39 | Billing Data ---
Date of Service March 05, 2021 Coding Level of Care Code 65546 Initial Inpt Care Lvl 2
[2021-03-06 06:37] LABS: Hematocrit (blood only) 37.2 % (42-52); Hemoglobin 12.9 g/dL (14.0-18.0); Mean Corpuscular Hgb Conc 34.7 g/dL (32-36); Mean Corpuscular Volume 80.9 fL (80-100); Mean Platelet Volume 9.2 fL (7.4-10.4); Platelet Count 279 K/uL (130-400); RDW Coefficient of Variation 14.1 % (11.5-14.5); RDW Standard Deviation 41.2 fL (36.4-46.3); White Blood Count 6.84 K/uL (4.8-10.8)
[2021-03-06 06:59] LABS: Appearance Urine Clear (Clear); Bacteria Urine Automated Negative (Negative); Blood Urine Negative (Negative); Color Urine Dark Yellow; Epithelial Cell Urine Auto 20-30 /lpf (0-5); Glucose Urine UA Negative (Negative); Ketones Urine 1+ (Negative); Leukocyte Esterase Urine Negative (Negative); Nitrite Urine Negative (Negative); Protein Urine 1+ (Negative); RBC Urine Automated 0-4 /hpf (0-4); Specific Gravity Urine > 1.045 (1.000-1.030); Urobilinogen Urine Negative (Negative)
[2021-03-06 07:17] LABS: Bilirubin Urine 1+ (Negative)
--- NOTE | 2021-03-06 07:56 | Hospitalist Progress Note ---
Date of Service March 06, 2021 Assessment & Plan (1) Acute duodenitis: 65 yo M w/ PMHx of celiac disease, IgG deficiency, chronic back pain on chronic opiates, GERD, HTN, HLN, HU, depression, COPD/emphysema admitted for acute duodenitis with intractable nausea and vomiting. Stable, improving. Acute duodenitis: per CT abd," fluid-filled nondilated loops of small bowel with prominent mucosal enhancement might represent enteritis or diarrheal state. Thickening of duodenal wall surrounding inflammatory changes likely represent duodenitis." +diverticulosis. - reviewed risk factors. no novel foods. patient has had chronic emesis 3-4x/wk. this could increase risk of PUD which could result in duodenitis. continue qam Protonix 40 PO, continue x 2 wks after. - considered inflammatory and infectious etiologies because of patient's hx of celiac's and IgG deficiency (receives monthly IVIG) - Labwork with no leukocytosis, noted to have elevated Tbili to 1.1. - Stool studies ordered. - Advanced diet - Started on Zosyn at admission, changed to Ceftriaxone and Flagyl - Antiemetics as needed, with care to prolonged QT (464) - added q8hPRN ODT zofran 4 mg, qt less likely prolonged than IV zofran Chronic pain: - Takes morphine and oxycodone at home for chronic back pain. - PDMP reviewed, will continue medications. - Has not missed doses and do not think current admission is related to withdrawal. COPD: - History of, not on daily oxygen. Diffuse expiratory wheezes noted on exam, but no respiratory distress. - Continue Symbicort, Spiriva, albuterol. Anxiety, depression: - Continue sertraline, Buspar. GERD: - Continue PPI. HTN, HLD: - Continue home meds. Code Status: FULL CODE FEN: heart healthy. no maintenance IV fluids DVT ppx: Lovenox Dispo: Med/Surg (2) GERD (gastroesophageal reflux disease): (3) Chronic pain: (4) Hyperlipidemia: (5) Hypertension: (6) Generalized anxiety disorder: (7) COPD (chronic obstructive pulmonary disease): Admission and Anticipated Discharge Date Admission Date: March 05, 2021 Supervising Physician Co-Signing Physician Notes I personally examined the patient and verified all siddiqui points of history and exam, discussed case, and agree with decision making with Dr Pinzon. Feeling better. No abdominal pain. No nausea. Tolerated liquid diet well. Generally feeling much improved. No abdominal pain. Vitals noted, in general he is awake and alert pleasant no distress. HEENT normocephalic atraumatic mucous membranes moist. Breathing unlabored no accessory muscle use good effort. Abdomen is soft nondistended nontender no masses organomegaly. Of particular note no epigastric or right upper quadrant tenderness to even deep palpation/no guarding rebound or rigidity. Duodenitiswhile certainly there would always be a concern for peptic ulcer disease/duodenal ulcerhis clinical syndrome actually does seem to fit with more of an infectious picture which is improving. He does have celiac disease and immune deficiency making it more possiblehe seems to have improved nicely on antibioticsand has no clear-cut typical signs or symptoms of peptic ulcer disease. Continue current course of treatment, consider EGD if he worsens/symptoms recur. Otherwise advance diet, once he is tolerating regular diet, likely switch to p.o. antibiotics and hopefully home. Subjective HPI hx clarified: Symptoms N/V (stomach acid and light brown)/ bowel incontinence diarrhea since 4AM 03/05. No abd pain. Traveled to [place] 2 weeks prior. Lack of appetite 03/04. Lost 20 lbs in past 2 months, gradually. s/p gracia. + hx celiac. +hx IGG deficiency. Patient does throw up 3-4x/wk normally, but not like current presentation. He has pcp apt coming up in 2-3 wks. On 2L O2 qhs at home. This AM: Currently, feels a lot better. Last V was last night. No diarrhea today. Wants to pass BM. Wants to eat. Review of Systems 2 Review of Systems: All systems reviewed & are unremarkable except as noted in HPI & below + fatigue and mild generalized weakness Physical Exam Physical Exam: General: Grossly A&O. NAD. Cooperative. HEENT: Atraumatic, normocephalic. Pulm: diffuse exp wheezes. No respiratory distress. Cardiac: RRR, 2/6 systolic ejection murmur Abdominal: Nontender, nondistended, soft. Results & Data Results & Data ([facility]) Vital Signs (Past 12 Hours) Vital Signs Temp Pulse Pulse Resp BP BP Pulse Ox 03/05/21 23:20 36.8 C 73 16 139/66 99 07/08/21 22:50 73 20 96 03/05/21 22:40 71 16 96 03/05/21 22:30 75 20 96 03/05/21 22:20 76 11 L 96 03/05/21 22:10 75 15 98 03/05/21 22:00 75 16 98 03/05/21 21:50 83 23 96 03/05/21 21:40 82 19 96 03/05/21 21:30 81 20 97 03/05/21 21:20 83 18 95 03/05/21 21:10 81 19 97 03/05/21 21:03 82 22 97 03/05/21 20:31 88 23 143/83 H 100 03/05/21 20:23 88 16 99 Resident Activity Tracking Resident Involvement: Resident Care Provided Care Provided: Adult Hospital Medicine
[2021-03-06] MEDS: PANTOprazole 40 MG TAB PO SCH (09:27)
[2021-03-06] MEDS: hydroCHLOROthiazide 25 MG TAB PO SCH (09:28)
[2021-03-06] MEDS: ATORVASTATIN 40 MG TAB PO SCH (09:28)
[2021-03-06] MEDS: busPIRone 5 MG TAB PO SCH ×2 (09:28→21:06)
[2021-03-06] MEDS: FINASTERIDE 5 MG TAB PO SCH (09:28)
[2021-03-06] MEDS: SACCHAROMYCES BOULARDII 250 MG CAP PO SCH ×2 (09:28→21:06)
[2021-03-06] MEDS: SERTRALINE HCL 100 MG TABLET PO SCH (09:28)
[2021-03-06] MEDS: carvediloL 12.5 MG TAB PO SCH ×2 (09:28→21:07)
[2021-03-06] MEDS: FLUTICASONE/VILANTEROL 100/25MCG 14 PUFFS/INHALER INH SCH (09:29)
[2021-03-06] MEDS: UMECLIDINIUM BROMIDE 62.5MCG/BLISTER 7 PUFFS/INHALER INH SCH (09:29)
[2021-03-06] MEDS ORDERED: cefTRIAXone SODIUM 1,000 MG in DEXTROSE 5% 50 ML IV SCH (16:00)
--- NOTE | 2021-03-06 16:21 | Billing Data ---
Date of Service March 06, 2021 Coding Level of Care Code 01898 Subseq Obs Care Lvl 3
[2021-03-06] MEDS: metroNIDAZOLE 500 MG/100 ML BAG IV SCH (17:50)
[2021-03-06] MEDS ORDERED: ONDANSETRON 4 MG OD TAB PO PRN (18:17)
[2021-03-07] MEDS: metroNIDAZOLE 500 MG/100 ML BAG IV SCH ×2 (00:16→08:49)
--- NOTE | 2021-03-07 06:06 | Electrocardiogram Report ---
Test Reason : Blood Pressure : / mmHG Vent. Rate : 083 BPM Atrial Rate : 083 BPM P-R Int : 144 ms QRS Dur : 140 ms QT Int : 438 ms P-R-T Axes : 066 -77 084 degrees QTc Int : 514 ms Poor data quality, interpretation may be adversely affected Sinus rhythm with marked sinus arrhythmia Left axis deviation Right bundle branch block Possible Septal infarct (cited on or before 11-DEC-2020) Abnormal ECG When compared with ECG of 11-DEC-2020 12:25, HR has increased by 32 bpm Confirmed by Salvador Castañeda ([id number]) on 03/07/2021 6:06:45 AM Referred By: REFERRED SELF Confirmed By:Salvador Castañeda
[2021-03-07 06:45] LABS: Basophils # (auto) 0.05 K/uL (0-0.2); Basophils % (auto) 1.1 %; Eosinophils # (auto) 0.07 K/uL (0-0.5); Eosinophils % (auto) 1.5 %; Hematocrit (blood only) 36.1 % (42-52); Immature Granulocytes # (auto) 0.01 K/uL (0.00-0.02); Immature Granulocytes % (auto) 0.2 %; Lymphocytes # (auto) 0.81 K/uL (1.2-3.4); Lymphocytes % (auto) 17.8 %; Mean Corpuscular Hgb Conc 33.2 g/dL (32-36); Mean Corpuscular Volume 84.3 fL (80-100); Mean Platelet Volume 9.5 fL (7.4-10.4); Monocytes # (auto) 0.43 K/uL (0.11-0.59); Monocytes % (auto) 9.5 %; Neutrophils # (auto) 3.18 K/uL (1.4-6.5); Neutrophils % (auto) 69.9 %; Platelet Count 262 K/uL (130-400); RDW Coefficient of Variation 14.2 % (11.5-14.5); RDW Standard Deviation 43.5 fL (36.4-46.3); Red Blood Count 4.28 M/uL (4.7-6.1); White Blood Count 4.55 K/uL (4.8-10.8)
--- NOTE | 2021-03-07 07:07 | Hospitalist Progress Note ---
Date of Service March 07, 2021 Assessment & Plan (1) Acute duodenitis: 65 yo M w/ PMHx of celiac disease, IgG deficiency, chronic back pain on chronic opiates, GERD, HTN, HLN, HU, depression, COPD/emphysema admitted for acute duodenitis with intractable nausea and vomiting. Stable, improving. Acute duodenitis: -CT abdomen concerning for enteritis and suspected duodenoitis -Continue Protonix 40mg PO -Stool studies pending including H. Pylori. -Abx therapy IV Zosyn --> Flagyl and CTX --> PO Augmentin for 10 day total course -Diet advanced yesterday, tolerating well -Zofran PRN -Of note, patient with Hx Celiac's Dz and IgG deficiency receiving monthly IVIG -GI follow up after discharge for possible EGD Chronic pain Low Back Pain -Continue home Morphine PO -Holding home Oxycodone, can resume if pain is uncontrolled COPD: -Continue home Symbicort -Continue home Spiriva -Albuterol PRN -Resume home Theophylline -Theophylline level 710 at <2 Anxiety, depression: - Continue sertraline, Buspar. GERD: - Continue PPI. HTN, HLD: -Continue home Atorvastatin -Continue home Coreg -Continue home HCTZ BPH -Continue home Proscar Code Status: FULL CODE FEN: heart healthy DVT ppx: Lovenox Dispo: Med/Surg (2) GERD (gastroesophageal reflux disease): (3) Chronic pain: (4) Hyperlipidemia: (5) Hypertension: (6) Generalized anxiety disorder: (7) COPD (chronic obstructive pulmonary disease): Admission and Anticipated Discharge Date Admission Date: March 05, 2021 Supervising Physician Co-Signing Physician Notes I personally supervised Rafael Nath DO on this patient's care. I interviewed and examined the patient independently of him. Very pleasant today. No n/v today. Just ate lunch on my interview. Stomach non- tender. Plan to watch for 1 more day and ensure he can take in adequate PO. Will follow up with GI to pursue possible EGD to better determine the etiology of his duodenitis and chronic, sporadic emesis. Subjective Patient evaluated in bed this AM. Patient noting that he is feeling significantly better. Was able to eat dinner last night and keep it down, had beef and mashed potatoes. Still denying any bowel movements for H. Pylori sample. Nausea improved. Denies any fever, chills, SOB, chest pain, abdominal pain. Review of Systems Review of Systems: All systems reviewed & are unremarkable except as noted in Subjective Physical Exam Constitutional: WD/WN, vitals as above Eyes: PERRL, conjunctivae normal, anicteric sclerae Neck: trachea midline, no thyromegaly Respiratory: normal respiratory effort; no respiratory distress and no labored breathing Auscultation: + wheezes (b/l worse in upperl obes ); no crackles, no rales and no rhonchi Cardiovascular: Rate/Rhythm: regular rate and regular rhythm Heart Sounds: normal S1 and normal S2; no murmur Vessels: no JVD Extremities: no calf tenderness Gastrointestinal (Abdomen): normal bowel sounds, soft, nontender, no hepatosplenomegaly Skin: no rashes, warm and dry Psychiatric: A+Ox3, euthymic affect Results & Data Results & Data ([facility]) Vital Signs (Past 12 Hours) Vital Signs Temp Pulse Resp BP Pulse Ox 03/06/21 21:59 36.8 C 60 18 101/57 L 99 Resident Activity Tracking Resident Involvement: Resident Care Provided Care Provided: Adult Hospital Medicine
[2021-03-07 07:19] LABS: Albumin Level 3.2 gm/dl (3.4-5.0); BUN Creatinine Ratio 21.7 (10-20); Bilirubin,Total 0.4 mg/dl (0.2-1); Calcium 8.4 mg/dl (8.5-10.1); Creatinine Clr Calc Pharmacy 61.5 ml/min; Est GFR (African American) 89.4 ml/min; Est GFR (Non-African American) 77.1 ml/min; Globulin 3.1 gm/dl (2.5-4.0); Potassium 3.3 mmol/L (3.5-5.1); Total Protein 6.3 gm/dl (6.4-8.2)
[2021-03-07] MEDS: ATORVASTATIN 40 MG TAB PO SCH (08:49)
[2021-03-07] MEDS: PANTOprazole 40 MG TAB PO SCH (08:51)
[2021-03-07] MEDS: hydroCHLOROthiazide 25 MG TAB PO SCH (08:51)
[2021-03-07] MEDS: SERTRALINE HCL 100 MG TABLET PO SCH (08:51)
[2021-03-07] MEDS: SACCHAROMYCES BOULARDII 250 MG CAP PO SCH ×2 (08:51→20:53)
[2021-03-07] MEDS: carvediloL 12.5 MG TAB PO SCH ×2 (08:52→20:53)
[2021-03-07] MEDS: busPIRone 5 MG TAB PO SCH ×2 (08:52→20:52)
[2021-03-07] MEDS: FLUTICASONE/VILANTEROL 100/25MCG 14 PUFFS/INHALER INH SCH (08:53)
[2021-03-07] MEDS: UMECLIDINIUM BROMIDE 62.5MCG/BLISTER 7 PUFFS/INHALER INH SCH (08:53)
[2021-03-07] MEDS ORDERED: POTASSIUM CHLORIDE CRTAB 20 MEQ TABCR PO SCH (09:00)
[2021-03-07] MEDS: MoRPHine SULFATE CR 15 MG TABCR PO SCH ×2 (09:18→20:54)
[2021-03-07] MEDS: FINASTERIDE 5 MG TAB PO SCH (09:18)
[2021-03-07] MEDS: THEOPHYLLINE 400 MG EXTENDED REL TAB PO SCH ×2 (09:18→20:54)
--- NOTE | 2021-03-07 14:35 | Billing Data ---
Date of Service March 07, 2021 Coding Level of Care Code 50314 Subseq Hosp Care Lvl 2
[2021-03-07] MEDS: AMOXICILLIN/CLAVULANATE 875 MG TAB PO SCH ×2 (16:06→20:52)
[2021-03-07] MEDS: MELATONIN 3 MG TAB PO PRN (20:54)
[2021-03-07] MEDS: ENOXAPARIN INJ 40 MG/0.4 ML SYR SQ SCH (20:54)
[2021-03-08 06:44] LABS: Basophils # (auto) 0.02 K/uL (0-0.2); Basophils % (auto) 0.3 %; Eosinophils # (auto) 0.11 K/uL (0-0.5); Eosinophils % (auto) 1.5 %; Hematocrit (blood only) 38.1 % (42-52); Hemoglobin 12.7 g/dL (14.0-18.0); Immature Granulocytes # (auto) 0.01 K/uL (0.00-0.02); Immature Granulocytes % (auto) 0.1 %; Lymphocytes % (auto) 12.3 %; Mean Corpuscular Hemoglobin 28.1 pg (25-34); Mean Corpuscular Hgb Conc 33.3 g/dL (32-36); Mean Corpuscular Volume 84.3 fL (80-100); Mean Platelet Volume 9.5 fL (7.4-10.4); Monocytes # (auto) 0.55 K/uL (0.11-0.59); Monocytes % (auto) 7.5 %; Neutrophils # (auto) 5.74 K/uL (1.4-6.5); Neutrophils % (auto) 78.3 %; Platelet Count 263 K/uL (130-400); RDW Coefficient of Variation 14.1 % (11.5-14.5); RDW Standard Deviation 43.6 fL (36.4-46.3); Red Blood Count 4.52 M/uL (4.7-6.1); White Blood Count 7.33 K/uL (4.8-10.8)
[2021-03-08 07:02] LABS: BUN Creatinine Ratio 20.9 (10-20); Calcium 8.6 mg/dl (8.5-10.1); Creatinine Clr Calc Pharmacy 81.7 ml/min; Est GFR (African American) 110.2 ml/min; Est GFR (Non-African American) 95.1 ml/min; Potassium 3.9 mmol/L (3.5-5.1)
[2021-03-08 07:53] VITALS: BP 110/60; TEMP 98.6; O2SAT 95
--- NOTE | 2021-03-08 08:16 | Discharge Summary ---
Date of Service March 08, 2021 Admission HPI Per Admitting Provider 65 yo M Hx chronic back pain on chronic opiates, GERD, HTN, HLN, HU, depression, COPD/emphysema presented to the ER for about 2 days of nausea and vomiting, associated anorexia. Denies chest pain, SOB, abdominal pain, recent sick contacts. Recalls that the last thing he ate was tomato soup two days ago. In the ER patient was hemodynamically stable, with labwork showing normal WBC, elevated Tbili, normal lipase. CTAP showed findings suggestive of duodenitis. Despite several antiemetics in the ER patient was having significant nausea and hospitalist service was consulted for admission. Admission Exam Per Admitting Provider Constitutional: WD/WN, vitals as above Eyes: PERRL, conjunctivae normal, anicteric sclerae ENMT: external ear and nose normal, oropharynx normal Neck: normal visual inspection Respiratory: normal respiratory effort Auscultation: no crackles and no wheezes Cardiovascular: Rate/Rhythm: regular rate and regular rhythm Heart Sounds: + murmur (systolic 2/6 RUSB) Gastrointestinal (Abdomen): normal bowel sounds, soft, nontender, no hepatosplenomegaly Musculoskeletal: no cyanosis or clubbing, extremities motor strength 5/5 Skin: no rashes, warm and dry Neurologic: AAOx3, normal speech. No tremor. No ataxia. Psychiatric: A+Ox3, euthymic affect Principal Diagnosis Duodenitis Discharge Exam Constitutional WD/WN, vitals as above Eyes PERRL, conjunctivae normal, anicteric sclerae Neck trachea midline, no thyromegaly Respiratory normal respiratory effort; no respiratory distress and no labored breathing Auscultation: + wheezes (b/l worse in upperl obes ); no crackles, no rales and no rhonchi Cardiovascular Rate/Rhythm: regular rate and regular rhythm Heart Sounds: normal S1 and normal S2; no murmur Vessels: no JVD Extremities: no calf tenderness Gastrointestinal (Abdomen) normal bowel sounds, soft, nontender, no hepatosplenomegaly Skin no rashes, warm and dry Psychiatric A+Ox3, euthymic affect Discharge Data Allergies Allergy/AdvReac Type Severity Reaction Status Date / Time NSAIDS (Non-Steroidal Allergy Intermediate Hives Verified 03/05/21 19:35 Anti-Inflamma aspirin Allergy Mild RASH,HIVES Verified 03/05/21 19:35 Consultations 03/05/21 20:29 ED Decision to Admit Stat Ordered Studies 03/05/21 18:45 CT abd pelvis IV con only Stat Hospital Course (1) Acute duodenitis: 65 yo M w/ PMHx of celiac disease, IgG deficiency, chronic back pain on chronic opiates, GERD, HTN, HLN, HU, depression, COPD/emphysema admitted for acute duodenitis with intractable nausea and vomiting. Acute duodenitis: -CT abdomen concerning for enteritis and suspected duodenitis on admission -Continued Protonix 40mg PO, continue on discharge -Stool studies pending including H. Pylori - notified patient to call hospital if not notified of results in 1-2 weeks -Abx therapy IV Zosyn --> Flagyl and CTX --> PO Augmentin for 10 day total course -Zofran PRN while inpatient -Of note, patient with Hx Celiac's Dz and IgG deficiency receiving monthly IVIG -GI follow up after discharge for possible EGD - number given to patient if he does not hear back in 1 week for appointment Chronic pain Low Back Pain -Continued home Morphine PO -Held home Oxycodone, can resume if pain is uncontrolled at home COPD: -Continued home Symbicort -Continued home Spiriva -Albuterol PRN -Resumed home Theophylline -Theophylline level 7/10 at <2 Anxiety, depression: - Continued sertraline, Buspar. GERD: - Continued PPI. HTN, HLD: -Continued home Atorvastatin -Continued home Coreg -Continued home HCTZ BPH -Continued home Proscar (2) GERD (gastroesophageal reflux disease): (3) Chronic pain: (4) Hyperlipidemia: (5) Hypertension: (6) Generalized anxiety disorder: (7) COPD (chronic obstructive pulmonary disease): Total Time Total Time Spent Total Time Spent (In Minutes): 35 Discharge Plan Discharge Items Patient Disposition: Home - Self-Care Reason For Visit: INTRACTABLE NAUSEA, VOMITING, DIARRHEA, DUODENITIS Discharge Diagnosis: Duodenitis Condition on Discharge: Good Activity: Per Instructions section Non-emergency contact: Primary Care Provider and Shelver Call non-emergency contact if: you have any medication questions, your symptoms worsen and your temperature is above 101 Follow-up/Referrals: Lyle Jay MD [Physician] - Fanny Franks PA-C [Primary Care Provider] - Diet: Regular Addtl Attending Provider Instructions: Mr. Thompson, It was our pleasure caring for you at [facility] from 03/05 - 03/08/21 for your intractable nausea, vomiting, and diarrhea, concerning for duodenitis. You had a CT scan of your abdomen which noted duodenitis or inflammation and infection of your small intestine. While inpatient you were treated with IV antibiotics and anti nausea medications. You were transitioned to oral antibiotics and tolerated well. You were also able to tolerate eating well without having further vomiting and diarrhea. Your stool studies, in addition to your H Pylori test, are still pending and someone from the hospital will notify you once these result if they are positive. If you do not hear back in the next 1-2 weeks, please call in for those results. We also discussed your case with our Shelver Dr. Jay who felt it would be appropriate for you to follow up with him outpatient after discharge. We will call to set this appointment up for you. If you do not hear back from us in regards to an appointment, please call [phone]. Please see below for future instructions: -You were prescribed an antibiotic Augmentin. Please take 1 tablet twice a day for the next 7 days. -Please follow up with your PCP in the following 1-2 weeks. -An appointment will be made for you for Gastroenterology. If you do not hear back in regards to an appointment the next 1-2 weeks please call [phone] for an appointment. Pending Studies at Discharge: No Stand-Alone Forms: My [facility], Opioid Pain Management, Smoking Cessation Medications and DC Order Prescriptions: New amoxicillin-pot clavulanate [Augmentin] 875-125 mg Tablet 1 tab PO BIDM 7 Days Qty: 14 RF: 0 Continued finasteride [Proscar] 5 mg Tablet 5 mg PO QAM Qty: 0 RF: 0 budesonide-formoterol [Symbicort] 160-4.5 mcg/actuation Hfa Aerosol Inhaler 2 puff INHALATION BID Qty: 0 RF: 0 sertraline [Zoloft] 100 mg Tablet 200 mg PO QAM 90 Days Qty: 90 RF: 1 oxycodone 5 mg Tablet 5 mg PO BID PRN (Reason: Pain) Qty: 0 RF: 0 albuterol sulfate 2.5 mg /3 mL (0.083 %) Solution For Nebulization 2.5 mg INHALATION QID PRN (Reason: Wheezing) Qty: 0 RF: 0 Spiriva with HandiHaler 18 mcg Capsule, W/Inhalation Device 1 cap INHALATION QAM 30 Days Qty: 30 RF: 3 carvedilol 25 mg Tablet 12.5 mg PO BID RF: 0 nitroglycerin 0.4 mg Tablet, Sublingual 0.4 mg sublingual UD PRN (Reason: Chest Pain) RF: 0 hydrochlorothiazide 25 mg Tablet 25 mg PO QAM RF: 0 epinephrine 0.3 mg/0.3 mL Syringe 0.3 mg IM UD PRN (Reason: Allergic Reaction) RF: 0 theophylline 400 mg Tablet Extended Release 24 Hr 400 mg PO BID RF: 0 buspirone 10 mg Tablet 10 mg PO BID RF: 0 albuterol sulfate [Proventil HFA] 90 mcg/actuation Hfa Aerosol Inhaler 2 puff INHALATION Q6H PRN (Reason: Shortness Of Breath) RF: 0 atorvastatin 80 mg Tablet 80 mg PO QAM RF: 0 omeprazole 20 mg Tablet,Delayed Release (Dr/Ec) 20 mg PO QAM RF: 0 morphine [MS Contin] 30 mg Tablet Extended Release 30 mg PO Q12H RF: 0 ferrous sulfate 325 mg (65 mg iron) tablet 325 mg PO QAM RF: 0 Saccharomyces boulardii [Florastor] 250 mg capsule 250 mg PO BID Qty: 20 RF: 0 Discharge Orders: Discharge Order (Routine); Ordered 03/08/21 Ordered By: Rafael Finn/Other Patient Handouts: Preventing Deep Vein Thrombosis Admission Data Admit Date/Time: 03/07/21 13:31 Attending Provider: Gamaliel Rushing Admit Provider: Shoshana Gonzales Primary Care Provider: Fanny Franks Other Providers: Kendal Junior Other Interventions: Discharge Summary Assessment (RN) Last Done: 03/08/21 08:25 Supervising Physician Co-Signing Physician Notes I personally supervised Rafael Nath DO on this patient's care. I interviewed and examined the patient independently of him. Very pleasant today. No n/v today. Did have some looser stool today which is returning to his chronic problem. Feels well enough to go home. Will plan to follow up with GI for possible EGD and/or colonoscopy (both of which he's had before) to determine cause of his chronic GI issues. Did discuss some possibilities like small bowel bacterial overgrowth, continued flare of his Celiac disease, microscopic colitis, etc. He feels well enough to go home and pursue this work-up outpatient. Resident Activity Tracking Resident Involvement: Resident Care Provided Care Provided: Adult [facility]
[2021-03-08 08:27] VITALS: PULSE 53
[2021-03-08] MEDS: ATORVASTATIN 40 MG TAB PO SCH (08:48)
[2021-03-08] MEDS: PANTOprazole 40 MG TAB PO SCH (08:50)
[2021-03-08] MEDS: SACCHAROMYCES BOULARDII 250 MG CAP PO SCH (08:50)
[2021-03-08] MEDS: FINASTERIDE 5 MG TAB PO SCH (08:50)
[2021-03-08] MEDS: THEOPHYLLINE 400 MG EXTENDED REL TAB PO SCH (08:51)
[2021-03-08] MEDS: busPIRone 5 MG TAB PO SCH (08:51)
[2021-03-08] MEDS: SERTRALINE HCL 100 MG TABLET PO SCH (08:51)
[2021-03-08] MEDS: carvediloL 12.5 MG TAB PO SCH (08:52)
[2021-03-08] MEDS: FLUTICASONE/VILANTEROL 100/25MCG 14 PUFFS/INHALER INH SCH (08:53)
[2021-03-08] MEDS: MoRPHine SULFATE CR 15 MG TABCR PO SCH (08:53)
[2021-03-08] MEDS: hydroCHLOROthiazide 25 MG TAB PO SCH (08:53)
[2021-03-08] MEDS: UMECLIDINIUM BROMIDE 62.5MCG/BLISTER 7 PUFFS/INHALER INH SCH (08:53)
--- NOTE | 2021-03-08 12:27 | Billing Data ---
Date of Service March 08, 2021 Coding Level of Care Code D/C Day Management >30 mins
== END 2021-03-08 11:41 | disposition home or self-care (01) | DRG 392 ==
LOC: ED 16:49 → 3W 16:49 → SUATTDRO 21:41 → 3W 23:03

== ENCOUNTER 2023-11-14 13:46 | Inpatient (IN) ==
--- NOTE | 2023-11-14 14:16 | XRay Report ---
SINGLE VIEW CHEST CLINICAL HISTORY: Atypical chest pain. FINDINGS: A PA chest radiograph is compared to study dated 04/22/2022. Correlation is made with chest CT dated 04/19/2022. The patient is status post midline sternotomy. The heart is top normal in size no ting atherosclerotic calcification of the thoracic aorta. Advanced emphysema and chronic interstitial thickening is similar to previous. There is bibasilar scarring/atelectasis. No airspace consolidatio n or pleural effusion is identified. No pneumothorax is seen. The bony thorax is grossly intact. A ri t shoulder arthroplasty is in place. Cholecystectomy clips are noted in the right upper quadrant. IMPRESSION: Emphysema with no active disease in the chest. ACT 112: Negative or not required by law. Electronically signed by: Rc Hitchcock M.D. 11/14/2023 2:14 PM
[2023-11-14 14:25] LABS: Basophils # (auto) 0.07 K/uL (0.00-0.20); Basophils % (auto) 1.2 %; Eosinophils # (auto) 0.13 K/uL (0.00-0.50); Eosinophils % (auto) 2.2 %; Hematocrit (blood only) 42.1 % (42.0-52.0); Hemoglobin 15.5 g/dl (14.0-18.0); Immature Granulocytes # (auto) 0.02 K/uL (0.01-0.20); Immature Granulocytes % (auto) 0.3 %; Lymphocytes # (auto) 0.79 K/uL (1.20-3.40); Lymphocytes % (auto) 13.3 %; Mean Corpuscular Hemoglobin 31.4 pg (25.0-34.0); Mean Corpuscular Hgb Conc 36.8 g/dL (32.0-36.0); Mean Corpuscular Volume 85.4 fL (80.0-100.0); Mean Platelet Volume 9.7 fL (9.4-12.4); Monocytes # (auto) 0.54 K/uL (0.11-0.59); Monocytes % (auto) 9.1 %; Neutrophils # (auto) 4.39 K/uL (1.40-6.50); Neutrophils % (auto) 73.9 %; Platelet Count 293 K/uL (130-400); RDW Coefficient of Variation 12.3 % (11.5-14.5); Red Blood Count 4.93 M/uL (4.70-6.10); White Blood Count 5.94 K/ul (4.8-10.8)
[2023-11-14 14:47] LABS: Partial Thromboplastin Ratio 0.9; Partial Thromboplastin Time 25 Seconds (21-31); Prothrombin Time 10.7 Seconds (9.0-12.0)
[2023-11-14 14:50] LABS: Albumin Level 4.5 gm/dl (3.4-5.0); Bilirubin,Total 0.7 mg/dl (0.2-1.0); Calcium 10.6 mg/dl (8.6-10.3); Potassium 2.7 mmol/L (3.5-5.1)
--- NOTE | 2023-11-14 14:53 | CT Scan Report ---
HEAD CT NONCONTRAST CT DOSE: 703.85 mGy.cm HISTORY: syncope TECHNIQUE: Multiaxial CT images of the head were performed without the use of intravenous contrast. A utomated exposure control was utilized for this study. A dose lowering technique was utilized adheri ng to the principles of ALARA. Comparison: Head CT 04/08/2011. Findings: The paranasal sinuses and mastoid air cells are clear. The calvarium and skull base are int act. The ventricles and sulci are within normal limits. There is no mass, hematoma, midline shift, or acute infarct. Impression: No acute intracranial abnormality. ACT 112: Negative or not required by law. Electronically signed by: Raoul Santoro M.D. 11/14/2023 2:52 PM
[2023-11-14 14:55] LABS: Troponin I High Sensitivity 21.5 pg/ml (0-20)
[2023-11-14 14:56] LABS: Albumin Globulin Ratio 1.3 (0.9-2); BUN Creatinine Ratio 24.5 (10-20); Creatinine Clr Calc Pharmacy 65.1 ml/min; Est GFR (African American) 91.4 ml/min; Est GFR (Non-African American) 78.9 ml/min; Globulin 3.5 gm/dl (2.5-4.0)
[2023-11-14 15:46] LABS: Magnesium 2.1 mg/dl (1.7-2.4)
[2023-11-14 16:05] LABS: Thyroid Stimulating Hormone 1.091 uIu/ml (0.300-4.500)
[2023-11-14] MEDS: SODIUM CHLORIDE 0.9% 500 ML IV ONE (16:15)
[2023-11-14] MEDS: ONDANSETRON INJ 2 MG/ML 2 ML VIAL IV STA (16:18)
[2023-11-14] MEDS: POTASSIUM CHLORIDE / WTR 10 MEQ/100 ML PLCT IV ONE (16:24)
--- NOTE | 2023-11-14 16:28 | Emergency Department Note ---
Impression & Plan Intractable nausea and vomiting, Acute hypokalemia, Elevated troponin ED Provider Note NAME: BRENDA ALLEN AGE: 67 SEX: Male INFORMANT: Patient and ED PROVIDER(S): London Sanchez MD CHIEF COMPLAINT: Nausea vomiting, head injury PLAN: Disposition: Admitted Outpatient prescription management: none Referral: None MEDICAL DECISION MAKING: Patient presented because of several weeks of nausea and vomiting. He got weak and fell. He struck his head. CT imaging of the head was performed and was negative for any acute trauma. Laboratory testing was performed. Patient was hydrated and given Zofran. Patient was found to have an unremarkable CBC but moderately low potassium on chemistry panel. He had a slight elevation of his cardiac troponin. ECG did not show any acute ischemia. Chest x-ray was negative. CT imaging of the abdomen and pelvis was ordered due to the intractable nausea and vomiting even though he had a benign abdominal examination. CT imaging the abdomen pelvis was negative. The patient was found to have low potassium and this was repleted. Repeat cardiac troponin was improved but still on the upper limits of normal. Further management in the hospital be necessary consultation was made with Dr. Goldy Shabazz of the [facility] service. Patient was evaluated in the ER for further management. Care/management discussed with: dependency case manager Level of care consideration(s): After review of the information above and other included data, I feel the patient requires escalation of care to admission Triage Nursing notes: reviewed and agree them. Vital Signs: reviewed and remarkable for mild hypertension Additional History obtained from: Patient's . She notes that he had significant amount of vomiting yesterday prior to his fall. Chronic Medical/Social Conditions affecting care: COPD Prior/ Outside/ External records reviewed: none Differential Diagnosis: Infection, dehydration, metabolic abnormality, hypo/hyperglycemia, electrolyte disturbance, anemia, hypoxia, cardiac sources, intracerebral event, toxicologic, neurologic, as well as other pathologies. Diagnostics, independently interpreted by me: ECG: Twelve-lead ECG rhythm normal sinus rhythm at 63 bpm. Left axis deviation. Right bundle branch block. Septal Q wave. No ST elevation Cardiac Monitoring: Cardiac monitoring ordered by me: The patient was placed on continuous cardiac monitoring and observed. It revealed a normal sinus rhythm at 60 beats per minute without ectopy or evidence of dysrhythmia. Medical decision rules: none Imaging studies: Head CT: A noncontrast CT scan of the head was performed and was negative for tumor, fracture, intracranial hemorrhage, or other acute pathology. HPI: 67 year old Male arrives for evaluation of nausea and vomiting and head injury. Patient was referred by his primary clinic because he noted an accidental fall yesterday when he got weak and lightheaded. He struck his head. He is on Plavix. He had a bruise over the right eye. Over the last 3 weeks or so he has had significant bout of nausea and vomiting. He has not had any abdominal pain or diarrhea. Patient has not been able to keep up with p.o. intake. He felt increasing weakness over the last few days and then had a fall yesterday. Pt denies LOC, headache, fevers, chills, diaphoresis, visual changes, neck pain, chest pain, breathing difficulties, abdominal pain, back pain, melena, hematochezia, urinary symptoms, numbness, lymphadenopathy, rash, or other complaints. PAST MEDICAL HISTORY: See Below, celiac disease, duodenitis PAST SURGICAL HISTORY: See Below, Mediport and Mediport removal SOCIAL HISTORY: See Below, HOME MEDICATIONS: See Below ALLERGIES: See Below VITALS: See Below PHYSICAL EXAMINATION: GENERAL: Awake, alert, nontoxic-appearing, in no distress HENT: Normocephalic, atraumatic. Oropharynx unremarkable. EYES: Normal conjunctiva. Sclera non-icteric. NECK: Inspection normal. Non-tender. Supple. No nuchal rigidity. FROM. No masses. RESPIRATORY: Clear to auscultation. No wheezes. No rales. Normal respiratory effort. CARDIAC: Borderline bradycardic rate. Normal rhythm. No murmurs. No rubs. Extremities warm and well perfused. Pulses equal. No JVD. GI: Soft, non-distended. No tenderness to palpation. No rebound or guarding. No masses. RECTAL: Deferred. MUSCULOSKELETAL: Atraumatic. Chest examination reveals no tenderness. Old scar from Mediport placement in the left upper chest noted. The back is symmetrical on inspection without obvious abnormality. There is no CVA tenderness to palpation. No joint edema. LOWER EXTREMITIES: Calves are equal size bilaterally and non-tender. No edema. No discoloration. NEURO: Normal sensorium. No sensory or motor deficits noted. SKIN: No rash or jaundice noted. PROCEDURES: none CRITICAL CARE: none OBSERVATION NOTE: none Past Med/Surg History Medical History Anxiety and depression Aortic valve defect Had AVR secondary to AR per patient "HAS MINIMAL LEAKING FROM PROSTHETIC COW AORTIC VALVE" Asthma Well controlled - inhalers daily and prn--nebulizer prn Bipolar disorder, unspecified BPH (benign prostatic hyperplasia) Celiac disease Chronic obstructive pulmonary disease stage 4 COPD, on prednisone maintenance program Deep vein thrombosis RT ARM 2018 (TREATED WITH ELIQUIS)- on AC x 6 months- then d/c'ed- no issues since. Did follow with heme- no known clotting issues - felt secondary to A-port- A port removed. Dementia stage 3 PATTON (dyspnea on exertion) GERD (gastroesophageal reflux disease) Well controlled and stable Hearing deficit Heart disease History of COVID-19 diagnosed 02/04/22 via home test only--cough, fatigue, muscle aches, runny nose--no symptoms now Hx of non-ST elevation myocardial infarction (NSTEMI) 2019 Hx of venous thrombosis and embolism Hyperlipidemia Hypertension Immunoglobulin G deficiency infusions monthly at [facility] Lung nodules Following with pulm- getting repeat CT to monitor nodules 07/2020. On home oxygen therapy 2L prn Pulmonary embolism DX IN 2009 Pulmonary nodule PVD (peripheral vascular disease) S/p angioplasties. On Plavix- cannot tolerate ASA Restless leg Sleep apnea cpap with 2L at hs Surgical History History of angioplasty LEs and hand History of aortic valve replacement 2009 @ [facility] "currently failing at 50%"--follows with Dr. Ji in [place] History of bronchoscopy History of cardiac cath (~05/15/19) @ [facility] with Dr. Ji History of cholecystectomy History of colonoscopy History of esophagogastroduodenoscopy (EGD) History of phacoemulsification of cataract of both eyes with intraocular lens implantation History of right inguinal hernia repair History of transesophageal echocardiography (MELISSA) (~08/16/19) History of umbilical hernia repair History of vascular access device PORT INSERTION/REMOVAL (DOES NOT HAVE CURRENTLY) Status post reverse arthroplasty of right shoulder (~04/2020) Family History Father Family history of diabetes mellitus Other No family history of adverse response to anesthesia Social History Smoking Status: Former smoker Tobacco Type: Cigarettes Second Hand Exposure: No; Do You Dip or Chew Tobacco: No; Hx Alcohol Use: No Hx Substance Use: No Preferred Language: Urdu Communication Ability: Effective Associate [employer] Required: No Beliefs That Will Affect Care: None marital status: Current Living Situation: Family Current Living Situation Comment: Lives with and son Other Information That Helps Us Care for You: No Feels Safe at Home: Yes Assistive Devices: Denture - Upper and Denture - Lower Assistive Devices Comment: oxygen as needed Allergies Allergies Allergy/AdvReac Type Severity Reaction Status Date / Time gluten Allergy Severe celiac Verified 06/16/23 06:22 disease wheat Allergy Severe celiac Verified 06/16/23 06:22 disease NSAIDS (Non-Steroidal Allergy Intermediate Hives Verified 06/16/23 06:22 Anti-Inflamma aspirin Allergy Mild RASH,HIVES Verified 06/16/23 06:22 Home Meds Home Medications Medication Instructions Recorded Confirmed finasteride 5 mg tablet (Proscar) 5 mg PO QAM #0 tabs 06/05/14 11/14/23 sertraline 100 mg tablet (Zoloft) 200 mg PO QAM 90 days #90 tabs 06/04/15 11/14/23 albuterol sulfate 2.5 mg/3 mL 2.5 mg inhalation QID PRN Wheezing 02/03/18 11/14/23 (0.083 %) solution for nebulization #0 doses tiotropium bromide 18 mcg capsule 1 cap inhalation QAM 30 days #30 02/03/18 11/14/23 with inhalation device (Spiriva caps with HandiHaler) albuterol sulfate 90 mcg/actuation 2 puff inhalation Q6H PRN 01/16/19 11/14/23 aerosol inhaler (Proventil HFA) Shortness Of Breath atorvastatin 80 mg tablet 80 mg PO QAM 01/16/19 11/14/23 omeprazole 20 mg tablet,delayed 20 mg PO QAM 01/16/19 11/14/23 release theophylline 400 mg 400 mg PO BID 01/16/19 11/14/23 tablet,extended release 24 hr carvedilol 25 mg tablet 25 mg PO BID 04/18/20 11/14/23 ferrous sulfate 325 mg (65 mg 325 mg PO Q OTHER DAY 12/11/20 11/14/23 iron) tablet clopidogrel 75 mg tablet (Plavix) 75 mg PO QAM 04/08/22 11/14/23 chlorthalidone 25 mg tablet 25 mg PO DAILY 11/14/23 11/14/23 clobetasol 0.05 % topical cream 1 applic topical DAILY PRN Other 11/14/23 11/14/23 ezetimibe 10 mg tablet (Zetia) 10 mg PO DAILY 11/14/23 11/14/23 fluticasone 500 mcg-salmeterol 50 1 inh inhalation BID 11/14/23 11/14/23 mcg/dose blistr powdr for inhalation (Advair Diskus) folic acid 1 mg tablet 1 mg PO DAILY 11/14/23 11/14/23 prednisone 10 mg tablet 5 mg PO DIRECTED 11/14/23 11/14/23 rivastigmine 4.6 mg/24 hour 1 patch transdermal DAILY 11/14/23 11/14/23 transdermal patch tamsulosin 0.4 mg capsule 0.4 mg PO HS 11/14/23 11/14/23 Results & Data (ED) Vital Signs Vital Signs - 24 hr 11/14/23 13:47 11/14/23 15:50 11/14/23 16:50 Temperature 36.1 C L Temperature Source Temporal Artery Scan Pulse Rate 66 Pulse Rate [Apical] 55 L Pulse Rate from SpO2 Sensor 58 L Pulse Rhythm [Apical] Regular Pulse Strength [Apical] Normal Respiratory Rate 16 19 Respiratory Effort / Characteristics Non-Labored Spontaneous Non-Labored Spontaneous Respiratory Depth Normal Normal Respiratory Pattern Regular Regular Blood Pressure 130/79 Blood Pressure [Right Arm] 147/81 H Blood Pressure Mean 96 Blood Pressure Mean [Right Arm] 103 Pulse Oximetry 96 98 96 Oxygen Delivery Method Room Air Room Air Sepsis Recent Fever Within 48 Hours No Sepsis New/Unexplained Change in Mental Status N/A Sepsis Action Taken by Nursing No Action Required 11/14/23 16:58 11/14/23 17:00 11/14/23 17:05 Temperature Temperature Source Pulse Rate 55 L 57 L Pulse Rate [Apical] Pulse Rate from SpO2 Sensor 57 L 59 L Pulse Rhythm [Apical] Pulse Strength [Apical] Respiratory Rate 19 Respiratory Effort / Characteristics Respiratory Depth Respiratory Pattern Blood Pressure Blood Pressure [Right Arm] Blood Pressure Mean Blood Pressure Mean [Right Arm] Pulse Oximetry 96 92 Oxygen Delivery Method Sepsis Recent Fever Within 48 Hours Sepsis New/Unexplained Change in Mental Status Sepsis Action Taken by Nursing 11/14/23 17:05 11/14/23 17:10 11/14/23 17:20 Temperature Temperature Source Pulse Rate 56 L 57 L Pulse Rate [Apical] Pulse Rate from SpO2 Sensor 56 L 55 L Pulse Rhythm [Apical] Pulse Strength [Apical] Respiratory Rate 19 21 Respiratory Effort / Characteristics Respiratory Depth Respiratory Pattern Blood Pressure 118/68 Blood Pressure [Right Arm] Blood Pressure Mean 89 Blood Pressure Mean [Right Arm] Pulse Oximetry 95 92 Oxygen Delivery Method Sepsis Recent Fever Within 48 Hours Sepsis New/Unexplained Change in Mental Status Sepsis Action Taken by Nursing Laboratory Data 11/14/23 13:55 11/14/23 20:14 Lab Results 11/14/23 11/14/23 Range/Units 13:55 16:45 WBC 5.94 (4.8-10.8) K/ul RBC 4.93 (4.70-6.10) M/uL Hgb 15.5 (14.0-18.0) g/dl Hct 42.1 (42.0-52.0) % MCV 85.4 (80.0-100.0) fL MCH 31.4 (25.0-34.0) pg MCHC 36.8 H (32.0-36.0) g/dL RDW Std Deviation 38.0 (36.4-46.3) fL RDW Coeff of Rosario 12.3 (11.5-14.5) % Plt Count 293 (130-400) K/uL MPV 9.7 (9.4-12.4) fL Immature Gran % (Auto) 0.3 % Neut % (Auto) 73.9 % Lymph % (Auto) 13.3 % [place] % (Auto) 9.1 % Eos % (Auto) 2.2 % Baso % (Auto) 1.2 % Neut # (Auto) 4.39 (1.40-6.50) K/uL Lymph # (Auto) 0.79 L (1.20-3.40) K/uL [place] # (Auto) 0.54 (0.11-0.59) K/uL Eos # (Auto) 0.13 (0.00-0.50) K/uL Baso # (Auto) 0.07 (0.00-0.20) K/uL Immature Gran # (Auto) 0.02 (0.01-0.20) K/uL PT 10.7 (9.0-12.0) Seconds INR 1.0 (0.9-1.1) APTT 25 (21-31) Seconds PTT Ratio 0.9 Sodium 135 L (136-145) mmol/L Potassium 2.7 L (3.5-5.1) mmol/L Chloride 94 L (98-107) mmol/L Carbon Dioxide 31 (21-32) mmol/L Anion Gap 10 (3-11) BUN 24 H (6-23) mg/dl Creatinine 0.98 (0.6-1.4) mg/dl Est Cr Clr Drug Dosing 65.1 ml/min Est GFR ( Amer) 91.4 ml/min Est GFR (Non-Af Amer) 78.9 ml/min BUN/Creatinine Ratio 24.5 H (10-20) Glucose 98 (70-99(Fasting)) mg/dl Calcium 10.6 H (8.6-10.3) mg/dl Magnesium 2.1 (1.7-2.4) mg/dl Total Bilirubin 0.7 (0.2-1.0) mg/dl AST 36 (13-39) U/L ALT 18 (7-52) U/L Alkaline Phosphatase 75 (34-104) U/L Troponin I High Sens 21.5 H 18.7 (0-20) pg/ml Total Protein 8.0 (6.0-8.3) gm/dl Albumin 4.5 (3.4-5.0) gm/dl Globulin 3.5 (2.5-4.0) gm/dl Albumin/Globulin Ratio 1.3 (0.9-2) Lipase 32 (11-82) U/L TSH 1.091 (0.300-4.500) uIu/ml Administered Medications Carvedilol (Carvedilol 25 Mg Tab) 25 mg PO BID JERRY Stop: 12/14/23 20:59 Last Admin: 11/14/23 21:50 Dose: 25 mg Documented By: ROBERTO Guaifenesin (Guaifenesin 600 Mg Tabcr) 1,200 mg PO BID JERRY Stop: 12/14/23 20:59 Last Admin: 11/14/23 21:50 Dose: 1,200 mg Documented By: ROBERTO Sodium Chloride (Nss) 1,000 mls @ 125 mls/hr IV .Q8H JERRY Stop: 12/14/23 16:14 Last Infusion: 11/14/23 18:54 Dose: 125 mls/hr Documented By: Infusion: 11/14/23 18:54 Dose: 125 mls/hr Documented By: Admin: 11/14/23 17:34 Dose: 125 mls/hr Documented By: ROBERTO Parenteral Electrolytes (Plasma-Lyte A Ph 7.4) 1,000 mls @ 125 mls/hr IV .Q8H JERRY Stop: 11/15/23 09:29 Last Admin: 11/14/23 18:53 Dose: 125 mls/hr Documented By: ROBERTO Famotidine (Pepcid 20mg Iv Push) 20 mg in 5 mls @ 2.5 mls/min IV Q12H JERRY Stop: 12/14/23 17:59 Last Admin: 11/14/23 18:28 Dose: 2.5 mls/min Documented By: ROBERTO Potassium Chloride (Potassium Chloride Crtab 20 Meq Tabcr) 20 meq PO TID JERRY Stop: 11/16/23 14:01 Last Admin: 11/14/23 21:51 Dose: 20 meq Documented By: ROBERTO Sucralfate (Sucralfate 1 Gm/10 Ml Udc) 1 gm PO QID JERRY Stop: 12/14/23 20:59 Last Admin: 11/14/23 21:52 Dose: 1 gm Documented By: ROBERTO Tamsulosin HCl (Tamsulosin Hcl 0.4 Mg Cap) 0.4 mg PO HS JERRY Stop: 12/14/23 20:59 Last Admin: 11/14/23 21:52 Dose: 0.4 mg Documented By: ROBERTO Theophylline (Theophylline 400 Mg Extended Rel Tab) 400 mg PO BID JERRY Stop: 12/14/23 20:59 Last Admin: 11/14/23 21:52 Dose: 400 mg Documented By: ROBERTO Discontinued Medications Sodium Chloride (Nss) 500 mls @ 999 mls/hr IV .Q31M ONE Stop: 11/14/23 16:38 Last Infusion: 11/14/23 17:31 Dose: Infused Documented By: Admin: 11/14/23 16:15 Dose: 999 mls/hr Documented By: ROBERTO Potassium Chloride (K Fly / Wtr) 10 meq in 100 mls @ 100 mls/hr IV ONE ONE Stop: 11/14/23 17:09 Last Infusion: 11/14/23 17:31 Dose: Infused Documented By: Admin: 11/14/23 16:24 Dose: 100 mls/hr Documented By: ROBERTO Pantoprazole Sodium 40 mg/ (Syringe) 10 mls @ 5 mls/min IV NOW ONE Stop: 11/14/23 17:28 Last Admin: 11/14/23 18:28 Dose: 5 mls/min Documented By: ROBERTO Potassium Chloride (K Fly / Wtr) 10 meq in 100 mls @ 100 mls/hr IV Q1H JERRY Stop: 11/14/23 21:29 Last Admin: 11/14/23 23:15 Dose: 100 mls/hr Documented By: Infusion: 11/14/23 23:14 Dose: Infused Documented By: Admin: 11/14/23 21:53 Dose: 100 mls/hr Documented By: Infusion: 11/14/23 21:21 Dose: Infused Documented By: Admin: 11/14/23 19:56 Dose: 100 mls/hr Documented By: Infusion: 11/14/23 19:43 Dose: Infused Documented By: Admin: 11/14/23 18:43 Dose: 100 mls/hr Documented By: LINDA Ioversol (Optiray 320 100ml) 89 ml IV ONCE ONE Stop: 11/14/23 16:36 Last Admin: 11/14/23 16:35 Dose: 89 ml Documented By: JEN Ondansetron HCl (Ondansetron Inj 2 Mg/Ml 2 Ml Vial) 4 mg IV NOW STA Stop: 11/14/23 16:09 Last Admin: 11/14/23 16:18 Dose: 4 mg Documented By: ROBERTO Potassium Chloride (Potassium Chloride Crtab 20 Meq Tabcr) 20 meq PO NOW STA Stop: 11/14/23 17:28 Last Admin: 11/14/23 18:28 Dose: 20 meq Documented By: ROBERTO Imaging Data Radiologist's Impression: Chest X-Ray 11/14/23 13:52 SINGLE VIEW CHEST CLINICAL HISTORY: Atypical chest pain. FINDINGS: A PA chest radiograph is compared to study dated 04/22/2022. Correlation is made with chest CT dated 04/19/2022. The patient is status post midline sternotomy. The heart is top normal in size noting atherosclerotic calcification of the thoracic aorta. Advanced emphysema and chronic interstitial thickening is similar to previous. There is bibasilar scarring/atelectasis. No airspace consolidation or pleural effusion is identified. No pneumothorax is seen. The bony thorax is grossly intact. A right shoulder arthroplasty is in place. Cholecystectomy clips are noted in the right upper quadrant. IMPRESSION: Emphysema with no active disease in the chest. ACT 112: Negative or not required by law. Electronically signed by: Rc Hitchcock M.D. 11/14/2023 2:[address] 11/14/23 14:[address] DOSE: 703.85 mGy.cm HISTORY: syncope TECHNIQUE: Multiaxial CT images of the head were performed without the use of intravenous contrast. Automated exposure control was utilized for this study. A dose lowering technique was utilized adhering to the principles of ALARA. Comparison: Head CT 04/08/2011. Findings: The paranasal sinuses and mastoid air cells are clear. The calvarium and skull base are intact. The ventricles and sulci are within normal limits. There is no mass, hematoma, midline shift, or acute infarct. Impression: No acute intracranial abnormality. ACT 112: Negative or not required by law. Electronically signed by: Raoul Santoro M.D. 11/14/2023 2:52 PM Abdomen/Pelvis CT 11/14/23 16:10 CT abd pelvis IV con only CLINICAL HISTORY: intract. nausea and vomiting TECHNIQUE: Helical axial images of the abdomen and pelvis were obtained and displayed. Automated dose lowering techniques and/or adjustment according to patient size were utilized for this exam. This exam was performed with intravenous contrast. CT DOSE: 678.2 mGy.cm COMPARISON: Comparison is made to CT abdomen pelvis FINDINGS: Lower chest: Seen interstitial thickening is seen. Liver: Unremarkable. No focal lesions are seen. Gallbladder and biliary tree: Patient is status post cholecystectomy. No intra- or extrahepatic biliary ductal dilation. Pancreas: Fatty replacement of the pancreas is seen. Spleen: Unremarkable. Adrenals: Unremarkable. Kidneys and ureters: A cyst is seen in the right kidney inferior pole. Bladder: Unremarkable. Reproductive organs: Unremarkable. Bowel: Diverticulosis is seen without evidence of diverticulitis. Lymph nodes Retroperitoneal: Unremarkable. Pelvic: Unremarkable. Mesenteric: Unremarkable. Peritoneum: Normal. Vessels: Unremarkable. Abdominal wall: A fat-containing umbilical hernia is seen. Bones: Degenerative changes in the visualized spine. IMPRESSION: 1. No acute abnormalities are seen in particular no evidence of bowel obstruction. There is diverticulosis without diverticulitis. 2. Status post cholecystectomy. 3. Emphysema. ACT 112: Negative or not required by law. Electronically signed by: Hayder Montes M.D. 11/14/2023 4:46 PM Discharge Plan Visit Data Chief Complaint: Referred by Doctor Stated Complaint: PASSED OUT, FELL AND HIT HEAD ED Provider: London Sanchez Discharge Problem: Intractable nausea and vomiting, Acute hypokalemia, Elevated troponin Patient Disposition: Admitted As Inpatient Discharge Instructions Interventions: ED Discharge Assessment Last Done: 11/14/23 18:56
[2023-11-14] MEDS: OPTIRAY 320 100ml IV ONE (16:35)
--- NOTE | 2023-11-14 16:47 | CT Scan Report ---
CT abd pelvis IV con only CLINICAL HISTORY: intract. nausea and vomiting TECHNIQUE: Helical axial images of the abdomen and pelvis were obtained and displayed. Automated dose lowering techniques and/or adjustment according to patient size were utilized for this exam. This e xam was performed with intravenous contrast. CT DOSE: 678.2 mGy.cm COMPARISON: Comparison is made to CT abdomen pelvis FINDINGS: Lower chest: Seen interstitial thickening is seen. Liver: Unremarkable. No focal lesions are seen. Gallbladder and biliary tree: Patient is status post cholecystectomy. No intra- or extrahepatic bilia ry ductal dilation. Pancreas: Fatty replacement of the pancreas is seen. Spleen: Unremarkable. Adrenals: Unremarkable. Kidneys and ureters: A cyst is seen in the right kidney inferior pole. Bladder: Unremarkable. Reproductive organs: Unremarkable. Bowel: Diverticulosis is seen without evidence of diverticulitis. Lymph nodes Retroperitoneal: Unremarkable. Pelvic: Unremarkable. Mesenteric: Unremarkable. Peritoneum: Normal. Vessels: Unremarkable. Abdominal wall: A fat-containing umbilical hernia is seen. Bones: Degenerative changes in the visualized spine. IMPRESSION: 1. No acute abnormalities are seen in particular no evidence of bowel obstruction. There is divertic ulosis without diverticulitis. 2. Status post cholecystectomy. 3. Emphysema. ACT 112: Negative or not required by law. Electronically signed by: Hayder Montes M.D. 11/14/2023 4:46 PM
--- NOTE | 2023-11-14 17:21 | History & Physical Report ---
Date of Service November 14, 2023 Assessment & Plan (1) Gastritis: Plan: Persistent nausea/vomiting - x2 weeks, nauseated all day, weak, hypokalemic. CT-A/P naf & s/p gracia. No bleeding. xaminases normal Potassium 2.7, high-sensitivity troponin 21.5 and normal on repeat, no chest pain. Suspect demand - Last EGD 03/2022: Gastritis. Biopsy with villous blunting and crypt hyperplasia potentially consistent with celiac, stomach biopsy with mild focal chronic gastritis and no evidence of H. pylori History of cholecystectomy No transaminitis No evidence of GI bleeding ? Gastritis. Given 2 weeks of symptoms bio fire is ordered PPI, H2, Carafate, Zofran ordered Hypokalemia to 2.7, 10meq KCl ordered while pt in ER. Mg 2.1. Additional 60meq KCl IV ordered. Recheck BMP q4h or after 4 K riders complete - Additional PO 20meq TID x6 doses ordered until PO/N/V improves. Adjust as needed. Hold if worsening GI sx Fall With weakness with profound volume depletion CThead normal, chest x-ray clear Patient with right orbital contusion, EOMs intact without pain or entrapment and vision is without acute change. No neck pain no Hypercalcemia With significant volume contraction on admission due to recurrent nausea/vomiting IV resuscitation ordered, trended daily. If this does not resolve with rehydration, follow-up PTH/PTH RP/vitamin D. No known history of malignancy Patient has over [id number] history of tobacco use last CT chest 03/2020 (2) COPD with acute exacerbation: Plan: COPD Previously following with [facility] pulmonology, stage IV COPD Last PFTs 2020 with FEV1 36% predicted, ratio 23 consistent with severe obstructive disease with moderate decrease in DLCO Continued on inhalers, theophylline Patient not had a screening CT and over or around 2 years. Has had increasing mucus production, cough and dyspnea on exertion. Increased risk of malignancy with [id number] history and hypercalcemia on admit. CT on admission without any suspicious nodules or acute findings (3) Bipolar disorder, unspecified: Plan: Mild dementia Follow-up with neurology as outpatient, normal EEG with no known seizure activity Memantine continued (4) Hypercalcemia: Plan: Trended. If remaining elevated following initial resuscitation add PTH/vitamin D. CT without suspicious (5) Hyperlipidemia: Plan: Home meds (6) Hypertension: Plan: Volume contracted, thiazide held History of Present Illness Primary Care Provider: Fanny Clark PA-C Wild is a 67-year-old man presents with several weeks of nausea/vomiting and progressive weakness. Potassium <3 on admit Per Pt: Patient chronically has a cough and mucus with stage IV COPD however mucus seems to be increased for the last few weeks although he has not had any increased shortness of breath or wheezing. Has been using his inhalers and denies shortness of breath on admission. He has over the last 2 weeks have increased nausea and vomiting. No hematemesis, no melanic emesis. Had some intermittent episodes of loose bowels, no melena/hematochezia. Denies chest pain or chest pressure. He reports that yesterday he was walking from the kitchen and had a prodrome of lightheadedness and dizziness after vomiting but was not able to make it all the way to the couch and fell striking his face. He has no neck pain and no headache on admission. No fevers or chills. 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 Does not drink alcohol. Denies recreational drug use. Does have history of GERD and gastritis which he feels like is somewhat different and that his current symptoms are exacerbated by swallowing larger amounts of thick mucus. Patient has not had low-dose CT screening in over 2 years. Medical History: Reviewed Medications: Reviewed Surgical History: Reviewed Family history: Reviewed Allergies: Reviewed Social History: Reviewed. History of >40 p/y tobacco use. Code Status: DNR/DNI Allergies Allergy/AdvReac Type Severity Reaction Status Date / Time gluten Allergy Severe celiac Verified 06/16/23 06:22 disease wheat Allergy Severe celiac Verified 06/16/23 06:22 disease NSAIDS (Non-Steroidal Allergy Intermediate Hives Verified 06/16/23 06:22 Anti-Inflamma aspirin Allergy Mild RASH,HIVES Verified 06/16/23 06:22 Home Medications Medication Instructions Recorded Confirmed Type finasteride 5 mg tablet (Proscar) 5 mg PO QAM #0 tabs 06/05/14 11/14/23 History sertraline 100 mg tablet (Zoloft) 200 mg PO QAM 90 days #90 tabs 06/04/15 11/14/23 History albuterol sulfate 2.5 mg/3 mL 2.5 mg inhalation QID PRN Wheezing 02/03/18 11/14/23 History (0.083 %) solution for nebulization #0 doses tiotropium bromide 18 mcg capsule 1 cap inhalation QAM 30 days #30 02/03/18 11/14/23 History with inhalation device (Spiriva caps with HandiHaler) albuterol sulfate 90 mcg/actuation 2 puff inhalation Q6H PRN 01/16/19 11/14/23 History aerosol inhaler (Proventil HFA) Shortness Of Breath atorvastatin 80 mg tablet 80 mg PO QAM 01/16/19 11/14/23 History omeprazole 20 mg tablet,delayed 20 mg PO QAM 01/16/19 11/14/23 History release theophylline 400 mg 400 mg PO BID 01/16/19 11/14/23 History tablet,extended release 24 hr carvedilol 25 mg tablet 25 mg PO BID 04/18/20 11/14/23 History ferrous sulfate 325 mg (65 mg 325 mg PO Q OTHER DAY 12/11/20 11/14/23 History iron) tablet clopidogrel 75 mg tablet (Plavix) 75 mg PO QAM 04/08/22 11/14/23 History chlorthalidone 25 mg tablet 25 mg PO DAILY 11/14/23 11/14/23 History clobetasol 0.05 % topical cream 1 applic topical DAILY PRN Other 11/14/23 11/14/23 History ezetimibe 10 mg tablet (Zetia) 10 mg PO DAILY 11/14/23 11/14/23 History fluticasone 500 mcg-salmeterol 50 1 inh inhalation BID 11/14/23 11/14/23 History mcg/dose blistr powdr for inhalation (Advair Diskus) folic acid 1 mg tablet 1 mg PO DAILY 11/14/23 11/14/23 History prednisone 10 mg tablet 5 mg PO DIRECTED 11/14/23 11/14/23 History rivastigmine 4.6 mg/24 hour 1 patch transdermal DAILY 11/14/23 11/14/23 History transdermal patch tamsulosin 0.4 mg capsule 0.4 mg PO HS 11/14/23 11/14/23 History Past Med/Surg History Medical History Anxiety and depression Aortic valve defect Had AVR secondary to AR per patient "HAS MINIMAL LEAKING FROM PROSTHETIC COW AORTIC VALVE" Asthma Well controlled - inhalers daily and prn--nebulizer prn Bipolar disorder, unspecified BPH (benign prostatic hyperplasia) Celiac disease Chronic obstructive pulmonary disease stage 4 COPD, on prednisone maintenance program Deep vein thrombosis RT ARM 2018 (TREATED WITH ELIQUIS)- on AC x 6 months- then d/c'ed- no issues since. Did follow with heme- no known clotting issues - felt secondary to A-port- A port removed. Dementia stage 3 PATTON (dyspnea on exertion) GERD (gastroesophageal reflux disease) Well controlled and stable Hearing deficit Heart disease History of COVID-19 diagnosed 02/04/22 via home test only--cough, fatigue, muscle aches, runny nose--no symptoms now Hx of non-ST elevation myocardial infarction (NSTEMI) 2019 Hx of venous thrombosis and embolism Hyperlipidemia Hypertension Immunoglobulin G deficiency infusions monthly at [facility] Lung nodules Following with pulm- getting repeat CT to monitor nodules 07/2020. On home oxygen therapy 2L prn Pulmonary embolism DX IN 2009 Pulmonary nodule PVD (peripheral vascular disease) S/p angioplasties. On Plavix- cannot tolerate ASA Restless leg Sleep apnea cpap with 2L at hs Surgical History History of angioplasty LEs and hand History of aortic valve replacement 2009 @ [facility] "currently failing at 50%"--[place]. [place] History of bronchoscopy History of cardiac cath (~05/15/19) @ [facility] with Dr. Ji History of cholecystectomy History of colonoscopy History of esophagogastroduodenoscopy (EGD) History of phacoemulsification of cataract of both eyes with intraocular lens implantation History of right inguinal hernia repair History of transesophageal echocardiography (MELISSA) (~08/16/19) History of umbilical hernia repair History of vascular access device PORT INSERTION/REMOVAL (DOES NOT HAVE CURRENTLY) Status post reverse arthroplasty of right shoulder (~04/2020) Family History Father Family history of diabetes mellitus Other No family history of adverse response to anesthesia Social History (Reviewed 06/09/23 @ 10:08 by TOÑITO Dawkins Smoking Status: Former smoker Tobacco Type: Cigarettes Second Hand Exposure: No; Do You Dip or Chew Tobacco: No; Hx Alcohol Use: No Hx Substance Use: No Preferred Language: [place] Communication Ability: Effective Appeals Officer Required: No Beliefs That Will Affect Care: None marital status: Current Living Situation: Spouse and Family Current Living Situation Comment: Lives with and son Feels Safe at Home: Yes Assistive Devices: CPAP, Denture - Upper, Denture - Lower, Hearing Aid - Bilateral, Nebulizer and Oxygen - at Night Physical Exam Physical Exam: General: A&Ox3. NAD. Cooperative. HEENT: Right contusion overlying medial orbit. Extraocular movements are intact without entrapment or pain. No decreased visual acuity, pupils equally reactive to light and accommodation Pulm: CTAB A&P. -wheezes, -rales, -rhonchi. Symmetrical chest rise. No increased work of breathing. No respiratory distress. Cardiac: RRR, +sm. Radial pulses intact and symmetrical. Abdominal: Nontender, nondistended, soft. BS present. Extremities: Warm and dry Results & Data Results & Data Vital Signs (Past 12 Hours) Vital Signs Temp Pulse Pulse Resp BP BP Pulse Ox 11/14/23 16:58 55 L 11/14/23 15:50 55 L 19 147/81 H 98 11/14/23 13:47 36.1 C L 66 16 130/79 96 O2 Del Method 11/14/23 16:58 11/14/23 15:50 Room Air 11/14/23 13:47 Room Air PG Care Time/CCT Total # of Minutes Spent Total Time Spent with Patient: Total time spent is greater than 50% in coordination of care (as documented) at patient's floor/unit and/or counseling patient: Coding Level of Care Code 23886 INT INP/OBS CARE 3/75MIN Diagnoses Gastritis K29.70 COPD with acute exacerbation J44.1 Bipolar disorder, unspecified F31.9 Hypercalcemia E83.52 Hyperlipidemia E78.5 Hypertension I10
--- NOTE | 2023-11-14 17:26 | Electrocardiogram Report ---
Test Reason : Blood Pressure : / mmHG Vent. Rate : 063 BPM Atrial Rate : 063 BPM P-R Int : 164 ms QRS Dur : 158 ms QT Int : 452 ms P-R-T Axes : 032 -67 085 degrees QTc Int : 462 ms Normal sinus rhythm Left axis deviation Right bundle branch block Left anterior fascicular block Abnormal ECG When compared with ECG of 04-FEB-2022 08:56, QRS duration has increased Inverted T waves have replaced nonspecific T wave abnormality in Lateral leads Confirmed by Joao Jean ([id number]) on 11/14/2023 5:26:01 PM Referred By: Confirmed By:Maurizio Jean
[2023-11-14] MEDS ORDERED: POLYETHYLENE (MIRALAX) 17 GM PACK PO PRN (17:27)
[2023-11-14] MEDS ORDERED: ALBUT/IPRATROP 3MG/0.5MG NEB 3 ML VIAL NEB PRN (17:27)
[2023-11-14] MEDS: SODIUM CHLORIDE 0.9% 1,000 ML IV SCH (17:34)
[2023-11-14] MEDS: POTASSIUM CHLORIDE CRTAB 20 MEQ TABCR PO STA (18:28)
[2023-11-14] MEDS: PANTOprazole 40 MG in SYRINGE 0 ML IV ONE (18:28)
[2023-11-14] MEDS: FAMOTIDINE 20MG IV PUSH 20 MG/5 ML SYR IV SCH (18:28)
[2023-11-14 18:40] LABS: BUN Creatinine Ratio 24.4 (10-20); Calcium 9.4 mg/dl (8.6-10.3); Creatinine Clr Calc Pharmacy 77.8 ml/min; Est GFR (African American) 105.3 ml/min; Est GFR (Non-African American) 90.9 ml/min; Potassium 2.4 mmol/L (3.5-5.1)
[2023-11-14] MEDS: POTASSIUM CHLORIDE / WTR 10 MEQ/100 ML PLCT IV SCH (18:43)
[2023-11-14] MEDS: PLASMA-LYTE A 1,000 ML IV SCH (18:53)
--- NOTE | 2023-11-14 19:01 | CT Scan Report ---
CT chest diagnostic wo con CLINICAL HISTORY: cough/dyspnea. 40 pack yr hx + hypercalcemia TECHNIQUE: Multidetector row helical CT of the chest was performed. Coronal and sagittal reformations were obtained. Automated dose lowering techniques and/or adjustment according to patient size were u tilized for this exam. CT DOSE: 340.63 mGy.cm Comparison: Comparison is made to CT chest 04/19/2022 FINDINGS: Lungs and pleura: Diffuse centrilobular emphysema is seen most prominent in the upper lobes. Intrapar enchymal lymph node is seen in the right horizontal fissure. Heart and pericardium: Aortic valvular prosthesis is seen. Vessels: Severe atherosclerotic changes in the aorta and coronary arteries. Mediastinum and jaswant: Unremarkable. Chest wall and lower neck: Unremarkable. Abdomen: Patient is status post cholecystectomy. There is fatty replacement of the pancreas. Bones: Degenerative changes in the thoracic spine. Right shoulder reverse arthroplasty is seen. IMPRESSION: No evidence of pneumonia. No suspicious pulmonary nodules. Prominent emphysema is seen. ACT 112: Negative or not required by law. Electronically signed by: Hayder Montes M.D. 11/14/2023 6:58 PM
[2023-11-14 20:54] LABS: BUN Creatinine Ratio 23.6 (10-20); Calcium 9.4 mg/dl (8.6-10.3); Creatinine Clr Calc Pharmacy 71.7 ml/min; Est GFR (African American) 101.8 ml/min; Est GFR (Non-African American) 87.9 ml/min; Potassium 3.1 mmol/L (3.5-5.1)
[2023-11-14] MEDS: guaiFENesin 600 MG TABCR PO SCH (21:50)
[2023-11-14] MEDS: carvediloL 25 MG TAB PO SCH (21:50)
[2023-11-14] MEDS: POTASSIUM CHLORIDE CRTAB 20 MEQ TABCR PO SCH (21:51)
[2023-11-14] MEDS: TAMSULOSIN HCL 0.4 MG CAP PO SCH (21:52)
[2023-11-14] MEDS: SUCRALFATE 1 GM/10 ML UDC PO SCH (21:52)
[2023-11-14] MEDS: THEOPHYLLINE 400 MG EXTENDED REL TAB PO SCH (21:52)
[2023-11-15 04:42] LABS: Albumin Globulin Ratio 1.3 (0.9-2); Albumin Level 3.5 gm/dl (3.4-5.0); BUN Creatinine Ratio 20.7 (10-20); Bilirubin,Total 0.6 mg/dl (0.2-1.0); Calcium 8.4 mg/dl (8.6-10.3); Creatinine Clr Calc Pharmacy 73.3 ml/min; Est GFR (African American) 102.8 ml/min; Est GFR (Non-African American) 88.7 ml/min; Globulin 2.7 gm/dl (2.5-4.0); Magnesium 1.7 mg/dl (1.7-2.4); Potassium 3.2 mmol/L (3.5-5.1); Total Protein 6.2 gm/dl (6.0-8.3)
[2023-11-15 05:39] LABS: Basophils # (auto) 0.05 K/uL (0.00-0.20); Basophils % (auto) 0.9 %; Eosinophils % (auto) 3.6 %; Hematocrit (blood only) 32.3 % (42.0-52.0); Hemoglobin 12.1 g/dl (14.0-18.0); Immature Granulocytes # (auto) 0.02 K/uL (0.01-0.20); Immature Granulocytes % (auto) 0.4 %; Lymphocytes # (auto) 0.74 K/uL (1.20-3.40); Lymphocytes % (auto) 13.5 %; Mean Corpuscular Hemoglobin 31.7 pg (25.0-34.0); Mean Corpuscular Hgb Conc 37.5 g/dL (32.0-36.0); Mean Corpuscular Volume 84.6 fL (80.0-100.0); Mean Platelet Volume 9.8 fL (9.4-12.4); Monocytes # (auto) 0.54 K/uL (0.11-0.59); Monocytes % (auto) 9.9 %; Neutrophils # (auto) 3.93 K/uL (1.40-6.50); Neutrophils % (auto) 71.7 %; Platelet Count 231 K/uL (130-400); RDW Coefficient of Variation 12.5 % (11.5-14.5); RDW Standard Deviation 37.8 fL (36.4-46.3); Red Blood Count 3.82 M/uL (4.70-6.10); White Blood Count 5.48 K/ul (4.8-10.8)
[2023-11-15] MEDS: predniSONE 5 MG TAB PO SCH (08:03)
[2023-11-15] MEDS: SERTRALINE HCL 100 MG TABLET PO SCH (08:05)
[2023-11-15] MEDS: MAGNESIUM OXIDE 400 MG TAB PO SCH (08:06)
[2023-11-15] MEDS: EZETIMIBE 10 MG TAB PO SCH (08:07)
[2023-11-15] MEDS: CLOPIDOGREL BISULFATE 75 MG TAB PO SCH (08:07)
[2023-11-15] MEDS: FINASTERIDE 5 MG TAB PO SCH (08:07)
[2023-11-15] MEDS: FOLIC ACID 1 MG TAB PO SCH (08:07)
[2023-11-15] MEDS: ATORVASTATIN 40 MG TAB PO SCH (08:08)
[2023-11-15] MEDS: FLUTICASONE/VILANTEROL 200/25MCG 14 PUFFS/INHALER INH SCH (08:09)
[2023-11-15] MEDS: UMECLIDINIUM BROMIDE 62.5MCG/BLISTER 7 PUFFS/INHALER INH SCH (08:10)
--- NOTE | 2023-11-15 10:37 | Gastrointestinal Consultation ---
Date of Consultation November 15, 2023 Assessment & Plan (1) Gastritis: (2) Intractable nausea and vomiting: Plan Patient with a few week history of nausea and vomiting. He has a history of celiac disease but follows a strict gluten free diet. he admits a few weeks prior to the start of symptoms that he had stopped his PPI. Discussed case with Dr. Jay. Suspect symptoms are likely secondary to gastritis related to him having stopped his PPI. He has felt better since starting PPI/H2 annabella. - continue with famotidine 20mg IV BID and protonix 40mg IV daily. - check TTG. - recommend continued strict gluten free diet. Supervising Physician Co-Signing Physician Notes I saw the patient and agree with the findings as documented by MACKENZIE Blanton History of Present Illness Reason for Consultation: Epigastric pain Requesting Physician: Gibson Lloyd Attending Physician: Gibson Lloyd History of Present Illness Patient is a 67 year old man who presented to ED yesterday after suffering a fall where he hit his head, he feels he may have passed out. he has had several weeks of nausea and vomiting and progressive weakness. he also admits to heartburn. He had been using omeprazole 20mg daily as an outpatient but admits he stopped this a few weeks ago prior to the start of symptoms. he denies any nsaids. He does have a history of celiac disease and tells me he follows a strict gluten free diet over the past two years, though prior to this, he admits he was not strict about this. He tells me that since coming to the ED that his symptoms have improved though still feels some nausea. He had CT abdomen/pelvis that shown as follows: 1. No acute abnormalities are seen in particular no evidence of bowel obstruction. There is diverticulosis without diverticulitis. 2. Status post cholecystectomy. 3. Emphysema. he denies any dysphagia, abdominal pain, changes in bowels, melena, or brbpr. Allergies Allergy/AdvReac Type Severity Reaction Status Date / Time gluten Allergy Severe celiac Verified 06/16/23 06:22 disease wheat Allergy Severe celiac Verified 06/16/23 06:22 disease NSAIDS (Non-Steroidal Allergy Intermediate Hives Verified 06/16/23 06:22 Anti-Inflamma aspirin Allergy Mild RASH,HIVES Verified 06/16/23 06:22 Home Medications Medication Instructions Recorded Confirmed Type finasteride 5 mg tablet (Proscar) 5 mg PO QAM #0 tabs 06/05/14 11/14/23 History sertraline 100 mg tablet (Zoloft) 200 mg PO QAM 90 days #90 tabs 06/04/15 11/14/23 History albuterol sulfate 2.5 mg/3 mL 2.5 mg inhalation QID PRN Wheezing 02/03/18 11/14/23 History (0.083 %) solution for nebulization #0 doses tiotropium bromide 18 mcg capsule 1 cap inhalation QAM 30 days #30 02/03/18 11/14/23 History with inhalation device (Spiriva caps with HandiHaler) albuterol sulfate 90 mcg/actuation 2 puff inhalation Q6H PRN 01/16/19 11/14/23 History aerosol inhaler (Proventil HFA) Shortness Of Breath atorvastatin 80 mg tablet 80 mg PO QAM 01/16/19 11/14/23 History omeprazole 20 mg tablet,delayed 20 mg PO QAM 01/16/19 11/14/23 History release theophylline 400 mg 400 mg PO BID 01/16/19 11/14/23 History tablet,extended release 24 hr carvedilol 25 mg tablet 25 mg PO BID 04/18/20 11/14/23 History ferrous sulfate 325 mg (65 mg 325 mg PO Q OTHER DAY 12/11/20 11/14/23 History iron) tablet clopidogrel 75 mg tablet (Plavix) 75 mg PO QAM 04/08/22 11/14/23 History chlorthalidone 25 mg tablet 25 mg PO DAILY 11/14/23 11/14/23 History clobetasol 0.05 % topical cream 1 applic topical DAILY PRN Other 11/14/23 11/14/23 History ezetimibe 10 mg tablet (Zetia) 10 mg PO DAILY 11/14/23 11/14/23 History fluticasone 500 mcg-salmeterol 50 1 inh inhalation BID 11/14/23 11/14/23 History mcg/dose blistr powdr for inhalation (Advair Diskus) folic acid 1 mg tablet 1 mg PO DAILY 11/14/23 11/14/23 History prednisone 10 mg tablet 5 mg PO DIRECTED 11/14/23 11/14/23 History rivastigmine 4.6 mg/24 hour 1 patch transdermal DAILY 11/14/23 11/14/23 History transdermal patch tamsulosin 0.4 mg capsule 0.4 mg PO HS 11/14/23 11/14/23 History Patient History Medical History Anxiety and depression Aortic valve defect Had AVR secondary to AR per patient "HAS MINIMAL LEAKING FROM PROSTHETIC COW AORTIC VALVE" Asthma Well controlled - inhalers daily and prn--nebulizer prn Bipolar disorder, unspecified BPH (benign prostatic hyperplasia) Celiac disease Chronic obstructive pulmonary disease stage 4 COPD, on prednisone maintenance program Deep vein thrombosis RT ARM 2018 (TREATED WITH ELIQUIS)- on AC x 6 months- then d/c'ed- no issues since. Did follow with heme- no known clotting issues - felt secondary to A-port- A port removed. Dementia stage 3 PATTON (dyspnea on exertion) GERD (gastroesophageal reflux disease) Well controlled and stable Hearing deficit Heart disease History of COVID-19 diagnosed 02/04/22 via home test only--cough, fatigue, muscle aches, runny nose--no symptoms now Hx of non-ST elevation myocardial infarction (NSTEMI) 2019 Hx of venous thrombosis and embolism Hyperlipidemia Hypertension Immunoglobulin G deficiency infusions monthly at [facility] Lung nodules Following with pulm- getting repeat CT to monitor nodules 07/2020. On home oxygen therapy 2L prn Pulmonary embolism DX IN 2009 Pulmonary nodule PVD (peripheral vascular disease) S/p angioplasties. On Plavix- cannot tolerate ASA Restless leg Sleep apnea cpap with 2L at hs Surgical History History of angioplasty LEs and hand History of aortic valve replacement 2009 @ [facility] "currently failing at 50%"--follows with Dr. Ji in [place] History of bronchoscopy History of cardiac cath (~05/15/19) @ [facility] with Dr. Ji History of cholecystectomy History of colonoscopy History of esophagogastroduodenoscopy (EGD) History of phacoemulsification of cataract of both eyes with intraocular lens implantation History of right inguinal hernia repair History of transesophageal echocardiography (MELISSA) (~08/16/19) History of umbilical hernia repair History of vascular access device PORT INSERTION/REMOVAL (DOES NOT HAVE CURRENTLY) Status post reverse arthroplasty of right shoulder (~04/2020) Family History Father Family history of diabetes mellitus Other No family history of adverse response to anesthesia Social History Smoking Status: Former smoker Tobacco Type: Cigarettes Second Hand Exposure: No; Do You Dip or Chew Tobacco: No; Hx Alcohol Use: No Hx Substance Use: No Preferred Language: Ukrainian Communication Ability: Effective Tong Setter Required: No Beliefs That Will Affect Care: None marital status: Current Living Situation: Family Current Living Situation Comment: Lives with and son Other Information That Helps Us Care for You: No Feels Safe at Home: Yes Assistive Devices: Cane and Oxygen - Continuous Assistive Devices Comment: oxygen as needed Review of Systems Review of Systems: All systems reviewed & are unremarkable except as noted in HPI & below Physical Exam Constitutional: WD/WN, vitals as above Respiratory: normal respiratory effort, lungs clear to auscultation Cardiovascular: RRR, no murmur, no edema Gastrointestinal (Abdomen): normal bowel sounds, soft, nontender, no hepatosplenomegaly Psychiatric: Orientation: alert and oriented x 3 Affect: euthymic affect Results & Data Vital Signs (Past 12 Hours) Vital Signs Pulse Pulse Resp BP BP Pulse Ox O2 Del Method 11/15/23 08:26 57 L 18 104/56 L 96 Room Air 11/15/23 07:56 53 L 11/15/23 06:40 56 L 17 97 11/15/23 06:30 60 21 11/15/23 06:26 76 11/15/23 06:10 58 L 19 96 11/15/23 06:00 55 L 22 117/67 96 11/15/23 06:00 55 L 22 96 11/15/23 05:50 59 L 19 93 11/15/23 05:40 59 L 20 95 11/15/23 05:30 58 L 21 92 11/15/23 05:20 54 L 22 94 11/15/23 05:10 57 L 22 92 11/15/23 05:00 55 L 20 98/60 L 93 11/15/23 05:00 55 L 20 93 11/15/23 04:50 55 L 23 93 11/15/23 04:40 55 L 26 H 94 11/15/23 04:30 57 L 23 95 11/15/23 04:20 58 L 20 97 11/15/23 04:10 61 16 96 11/15/23 04:08 60 20 109/60 96 11/15/23 04:08 60 20 96 11/15/23 04:00 61 23 11/15/23 03:50 59 L 23 11/15/23 03:40 64 24 11/15/23 03:30 59 L 22 11/15/23 03:20 58 L 18 11/15/23 03:10 58 L 24 11/15/23 03:00 55 L 27 H 11/15/23 02:50 56 L 23 11/15/23 02:40 59 L 19 11/15/23 02:30 68 23 11/15/23 02:20 59 L 17 11/15/23 02:10 57 L 22 11/15/23 02:00 57 L 19 11/15/23 01:50 62 23 11/15/23 01:40 55 L 24 93 11/15/23 01:30 56 L 22 96 11/15/23 01:20 57 L 21 95 11/15/23 01:15 58 L 25 H 11/15/23 01:15 58 L 25 H 99/58 L 95 11/15/23 01:10 66 22 11/15/23 01:00 60 20 99/58 L 95 Room Air 11/15/23 00:50 95 11/15/23 00:40 63 11/15/23 00:30 56 L 21 11/15/23 00:20 56 L 21 11/15/23 00:10 55 L 22 94 11/15/23 00:00 57 L 20 96 11/14/23 23:50 58 L 16 98 11/14/23 23:40 61 27 H 11/14/23 23:30 59 L 22 95 11/14/23 23:23 62 11/14/23 23:21 69 21 119/66 98 Room Air 11/14/23 23:21 69 21 98 11/14/23 23:20 59 L 22 94 11/14/23 23:14 63 23 89 L 11/14/23 23:14 147/72 H 11/14/23 23:13 65 21 11/14/23 22:50 57 L 24 96 11/14/23 22:40 58 L 22 85 L Coding Level of Care Code 24778 INT INP/OBS CARE 55MIN Diagnoses Gastritis K29.70 Intractable nausea and vomiting R11.2
[2023-11-15] MEDS: ACETAMINOPHEN 325 MG TAB PO PRN (11:34)
[2023-11-15] MEDS: PANTOprazole 40 MG in SYRINGE 0 ML IV SCH (11:47)
--- NOTE | 2023-11-15 14:40 | Electrocardiogram Report ---
Test Reason : Blood Pressure : / mmHG Vent. Rate : 053 BPM Atrial Rate : 053 BPM P-R Int : 170 ms QRS Dur : 134 ms QT Int : 488 ms P-R-T Axes : 016 -66 087 degrees QTc Int : 457 ms Sinus bradycardia Right bundle branch block Left anterior fascicular block Bifascicular block Abnormal ECG Confirmed by Joao Jean ([id number]) on 11/15/2023 2:40:33 PM Referred By: REFERRED SELF Confirmed By:Maurizio Jean
--- NOTE | 2023-11-15 17:52 | Hospitalist Progress Note ---
Date of Service November 15, 2023 Assessment & Plan (1) Gastritis: Plan: Persistent nausea/vomiting - x2 weeks, nauseated all day, weak, hypokalemic. CT-A/P naf & s/p gracia. No bleeding. xaminases normal Potassium 2.7, high-sensitivity troponin 21.5 and normal on repeat, no chest pain. Suspect demand - Last EGD 03/2022: Gastritis. Biopsy with villous blunting and crypt hyperplasia potentially consistent with celiac, stomach biopsy with mild focal chronic gastritis and no evidence of H. pylori History of cholecystectomy No transaminitis No evidence of GI bleeding ? Gastritis. Given 2 weeks of symptoms bio fire is ordered PPI, H2, Carafate, Zofran ordered Hypokalemia to 2.7, 10meq KCl ordered while pt in ER. Mg 2.1. Additional 60meq KCl IV ordered. Recheck BMP q4h or after 4 K riders complete - Additional PO 20meq TID x6 doses ordered until PO/N/V improves. Adjust as needed. Hold if worsening GI sx On 11/14 This appears more likely secondary to gastritis from non compliance to PPI. Howevr patient had an episode of feeling clammy today. Will monitor overnight and see ow patient feels throughout the day. Fall With weakness with profound volume depletion CThead normal, chest x-ray clear Patient with right orbital contusion, EOMs intact without pain or entrapment and vision is without acute change. No neck pain no Hypercalcemia With significant volume contraction on admission due to recurrent nausea/vomiting IV resuscitation ordered, trended daily. If this does not resolve with rehydration, follow-up PTH/PTH RP/vitamin D. No known history of malignancy Patient has over 37-zurm-ohbr history of tobacco use last CT chest 03/2020 (2) COPD with acute exacerbation: Plan: COPD Previously following with [facility] pulmonology, stage IV COPD Last PFTs 2020 with FEV1 36% predicted, ratio 23 consistent with severe obstructive disease with moderate decrease in DLCO Continued on inhalers, theophylline Patient not had a screening CT and over or around 2 years. Has had increasing mucus production, cough and dyspnea on exertion. Increased risk of malignancy with [id number]-[id number] history and hypercalcemia on admit. CT on admission without any suspicious nodules or acute findings (3) Bipolar disorder, unspecified: Plan: Mild dementia Follow-up with neurology as outpatient, normal EEG with no known seizure activity Memantine continued (4) Hypercalcemia: Plan: Trended. If remaining elevated following initial resuscitation add PTH/vitamin D. CT without suspicious (5) Hyperlipidemia: Plan: Home meds (6) Hypertension: Plan: Volume contracted, thiazide held Admission and Anticipated Discharge Date Admission Date: November 14, 2023 Subjective 67 yo male reports having an episode of feeling clammy, and having nausea. Review of Systems Review of Systems: All systems reviewed & are unremarkable except as noted in HPI & below Physical Exam Physical Exam: General: A&Ox3. NAD. Cooperative. HEENT: Right contusion overlying medial orbit. Extraocular movements are intact without entrapment or pain. No decreased visual acuity, pupils equally reactive to light and accommodation Pulm: CTAB A&P. No increased work of breathing. No respiratory distress. Cardiac: RRR, . Abdominal: Nontender, nondistended, soft. BS present. Extremities: Warm and dry Results & Data Results & Data Vital Signs (Past 12 Hours) Vital Signs Pulse Pulse Resp BP BP Pulse Ox Pulse Ox 11/15/23 16:25 68 18 118/73 97 11/15/23 15:03 96 11/15/23 08:26 57 L 18 104/56 L 96 11/15/23 07:56 53 L 11/15/23 06:40 56 L 17 97 11/15/23 06:30 60 21 11/15/23 06:26 76 11/15/23 06:10 58 L 19 96 11/15/23 06:00 55 L 22 117/67 96 11/15/23 06:00 55 L 22 96 Pulse Ox O2 Del Method O2 Flow Rate O2 Flow Rate 11/15/23 16:25 Room Air 11/15/23 15:03 94 0 0 11/15/23 08:26 Room Air 11/15/23 07:56 11/15/23 06:40 11/15/23 06:30 11/15/23 06:26 11/15/23 06:10 11/15/23 06:00 11/15/23 06:00 PG Care Time/CCT Total # of Minutes Spent Total Time Spent with Patient: Total time spent is greater than 50% in coordination of care (as documented) at patient's floor/unit and/or counseling patient: Coding Level of Care Code 20712 SUB INP/OBS CARE MIN Diagnoses Gastritis K29.70 COPD with acute exacerbation J44.1 Bipolar disorder, unspecified F31.9 Hypercalcemia E83.52 Hyperlipidemia E78.5 Hypertension I10
[2023-11-15] MEDS: ONDANSETRON INJ 2 MG/ML 2 ML VIAL IV PRN (18:02)
[2023-11-16 06:37] LABS: BUN Creatinine Ratio 11.1 (10-20); C Reactive Protein 0.65 mg/dl (0-0.5); Calcium 8.1 mg/dl (8.6-10.3); Creatinine Clr Calc Pharmacy 78.8 ml/min; Est GFR (African American) 105.8 ml/min; Est GFR (Non-African American) 91.3 ml/min; Potassium 3.5 mmol/L (3.5-5.1)
[2023-11-16 07:26] LABS: Basophils # (auto) 0.04 K/uL (0.00-0.20); Eosinophils # (auto) 0.17 K/uL (0.00-0.50); Eosinophils % (auto) 4.3 %; Hematocrit (blood only) 32.3 % (42.0-52.0); Hemoglobin 11.7 g/dl (14.0-18.0); Immature Granulocytes # (auto) 0.02 K/uL (0.01-0.20); Immature Granulocytes % (auto) 0.5 %; Lymphocytes # (auto) 0.66 K/uL (1.20-3.40); Lymphocytes % (auto) 16.5 %; Mean Corpuscular Hemoglobin 31.8 pg (25.0-34.0); Mean Corpuscular Hgb Conc 36.2 g/dL (32.0-36.0); Mean Corpuscular Volume 87.8 fL (80.0-100.0); Monocytes # (auto) 0.38 K/uL (0.11-0.59); Monocytes % (auto) 9.5 %; Neutrophils # (auto) 2.73 K/uL (1.40-6.50); Neutrophils % (auto) 68.2 %; Platelet Count 243 K/uL (130-400); RDW Coefficient of Variation 12.6 % (11.5-14.5); RDW Standard Deviation 40.9 fL (36.4-46.3); Red Blood Count 3.68 M/uL (4.70-6.10)
[2023-11-16 07:49] LABS: Troponin I High Sensitivity 11.2 pg/ml (0-20)
[2023-11-16 13:08] LABS: Adenovirus F 40/41 PCR Not Detected (NotDetected); Astrovirus PCR Not Detected (NotDetected); Campylobacter PCR Not Detected (NotDetected); Cryptosporidium PCR Not Detected (NotDetected); Cyclospora cayetanensis PCR Not Detected (NotDetected); Entamoeba histolytica PCR Not Detected (NotDetected); Enteroaggregative E.coli(EAEC) Not Detected (NotDetected); Enteropathogenic E.coli (EPEC) Not Detected (NotDetected); Enterotoxigenic E.coli (ETEC) Not Detected (NotDetected); Giardia lamblia PCR Not Detected (NotDetected); Norovirus GI/GII PCR Not Detected (NotDetected); Plesiomonas shigelloides PCR Not Detected (NotDetected); Rotavirus A PCR Not Detected (NotDetected); Salmonella PCR Not Detected (NotDetected); Sapovirus PCR Not Detected (NotDetected); Shiga-like Toxin E.coli (STEC) Not Detected (NotDetected); Shigella/Enteroinvasive E.coli Not Detected (NotDetected); Vibrio cholerae PCR Not Detected (NotDetected); Vibrio species PCR Not Detected (NotDetected); Yersinia enterocolitica PCR Not Detected (NotDetected)
--- NOTE | 2023-11-16 13:28 | Hospitalist Progress Note ---
Date of Service November 16, 2023 Assessment & Plan (1) Gastritis: Plan: Persistent nausea/vomiting - x2 weeks, nauseated all day, weak, hypokalemic. CT-A/P naf & s/p gracia. No bleeding. xaminases normal Potassium 2.7, high-sensitivity troponin 21.5 and normal on repeat, no chest pain. Suspect demand - Last EGD 03/2022: Gastritis. Biopsy with villous blunting and crypt hyperplasia potentially consistent with celiac, stomach biopsy with mild focal chronic gastritis and no evidence of H. pylori History of cholecystectomy No transaminitis No evidence of GI bleeding ? Gastritis. Given 2 weeks of symptoms bio fire is ordered PPI, H2, Carafate, Zofran ordered Hypokalemia to 2.7, 10meq KCl ordered while pt in ER. Mg 2.1. Additional 60meq KCl IV ordered. Recheck BMP q4h or after 4 K riders complete - Additional PO 20meq TID x6 doses ordered until PO/N/V improves. Adjust as needed. Hold if worsening GI sx On 11/14 This appears more likely secondary to gastritis from non compliance to PPI. Howevr patient had an episode of feeling clammy today. Will monitor overnight and see ow patient feels throughout the day. 11/15 Symptoms are improving but he is not quite at baseline as of yet. WIll monitor how he tolerates diet. Fall With weakness with profound volume depletion CThead normal, chest x-ray clear Patient with right orbital contusion, EOMs intact without pain or entrapment and vision is without acute change. No neck pain no Hypercalcemia With significant volume contraction on admission due to recurrent nausea/vomiting IV resuscitation ordered, trended daily. If this does not resolve with rehydration, follow-up PTH/PTH RP/vitamin D. No known history of malignancy Patient has over 16-wgad-kxru history of tobacco use last CT chest 03/2020 (2) COPD with acute exacerbation: Plan: COPD Previously following with [facility] pulmonology, stage IV COPD Last PFTs 2020 with FEV1 36% predicted, ratio 23 consistent with severe obstructive disease with moderate decrease in DLCO Continued on inhalers, theophylline Patient not had a screening CT and over or around 2 years. Has had increasing mucus production, cough and dyspnea on exertion. Increased risk of malignancy with 55-[id number]-xxla history and hypercalcemia on admit. CT on admission without any suspicious nodules or acute findings (3) Bipolar disorder, unspecified: Plan: Mild dementia Follow-up with neurology as outpatient, normal EEG with no known seizure activity Memantine continued (4) Hypercalcemia: Plan: Trended. If remaining elevated following initial resuscitation add PTH/vitamin D. CT without suspicious (5) Hyperlipidemia: Plan: Home meds (6) Hypertension: Plan: Volume contracted, thiazide held Admission and Anticipated Discharge Date Admission Date: November 14, 2023 Subjective Patient reports not feeling quite at baseline yet. Review of Systems Review of Systems: All systems reviewed & are unremarkable except as noted in HPI & below Physical Exam Physical Exam: General: A&Ox3. NAD. Cooperative. HEENT: Right contusion overlying medial orbit. Extraocular movements are intact without entrapment or pain. No decreased visual acuity, pupils equally reactive to light and accommodation Pulm: CTAB A&P. No increased work of breathing. No respiratory distress. Cardiac: RRR, . Abdominal: Nontender, nondistended, soft. BS present. Extremities: Warm and dry Results & Data Results & Data Vital Signs (Past 12 Hours) Vital Signs Temp Pulse Pulse Resp BP Pulse Ox O2 Del Method 11/16/23 11:39 36.4 C L 60 18 119/70 97 Room Air 11/16/23 09:39 Room Air 11/16/23 07:47 36.5 C 52 L 18 112/54 L 92 Room Air 11/16/23 07:16 50 L 11/16/23 03:09 36.4 C L 57 L 18 99/45 L 92 Room Air PG Care Time/CCT Total # of Minutes Spent Total Time Spent with Patient: Total time spent is greater than 50% in coordination of care (as documented) at patient's floor/unit and/or counseling patient: Coding Level of Care Code 95118 SUB INP/OBS CARE 2/35MIN Diagnoses Gastritis K29.70 COPD with acute exacerbation J44.1 Bipolar disorder, unspecified F31.9 Hypercalcemia E83.52 Hyperlipidemia E78.5 Hypertension I10
--- NOTE | 2023-11-16 14:06 | XCELERA ---
[id number]
[2023-11-17 06:30] LABS: Basophils # (auto) 0.06 K/uL (0.00-0.20); Basophils % (auto) 1.4 %; Eosinophils # (auto) 0.15 K/uL (0.00-0.50); Eosinophils % (auto) 3.5 %; Hematocrit (blood only) 31.7 % (42.0-52.0); Hemoglobin 11.2 g/dl (14.0-18.0); Immature Granulocytes # (auto) 0.02 K/uL (0.01-0.20); Immature Granulocytes % (auto) 0.5 %; Lymphocytes # (auto) 0.75 K/uL (1.20-3.40); Lymphocytes % (auto) 17.6 %; Mean Corpuscular Hemoglobin 31.3 pg (25.0-34.0); Mean Corpuscular Hgb Conc 35.3 g/dL (32.0-36.0); Mean Corpuscular Volume 88.5 fL (80.0-100.0); Mean Platelet Volume 9.8 fL (9.4-12.4); Monocytes # (auto) 0.43 K/uL (0.11-0.59); Monocytes % (auto) 10.1 %; Neutrophils # (auto) 2.86 K/uL (1.40-6.50); Neutrophils % (auto) 66.9 %; Platelet Count 257 K/uL (130-400); RDW Coefficient of Variation 12.7 % (11.5-14.5); RDW Standard Deviation 41.2 fL (36.4-46.3); Red Blood Count 3.58 M/uL (4.70-6.10); White Blood Count 4.27 K/ul (4.8-10.8)
[2023-11-17 06:37] LABS: BUN Creatinine Ratio 11.2 (10-20); Calcium 8.3 mg/dl (8.6-10.3); Creatinine Clr Calc Pharmacy 71.7 ml/min; Est GFR (African American) 101.8 ml/min; Est GFR (Non-African American) 87.9 ml/min
[2023-11-17] MEDS: NAPHAZOLIN/PHENIRAMIN OPH SOLN 75 DROPS/5 ML BTL OPB SCH (10:19)
[2023-11-17 13:00] LABS: Hemoglobin 12.8 g/dl (14.0-18.0)
[2023-11-17 13:34] LABS: Ferritin 183.4 ng/ml (8-388)
--- NOTE | 2023-11-17 22:25 | Hospitalist Progress Note ---
Date of Service November 17, 2023 Assessment & Plan (1) Gastritis: Plan: Persistent nausea/vomiting - x2 weeks, nauseated all day, weak, hypokalemic. CT-A/P naf & s/p gracia. No bleeding. xaminases normal Potassium 2.7, high-sensitivity troponin 21.5 and normal on repeat, no chest pain. Suspect demand - Last EGD 03/2022: Gastritis. Biopsy with villous blunting and crypt hyperplasia potentially consistent with celiac, stomach biopsy with mild focal chronic gastritis and no evidence of H. pylori History of cholecystectomy No transaminitis No evidence of GI bleeding ? Gastritis. Given 2 weeks of symptoms bio fire is ordered PPI, H2, Carafate, Zofran ordered Hypokalemia to 2.7, 10meq KCl ordered while pt in ER. Mg 2.1. Additional 60meq KCl IV ordered. Recheck BMP q4h or after 4 K riders complete - Additional PO 20meq TID x6 doses ordered until PO/N/V improves. Adjust as needed. Hold if worsening GI sx On 11/14 This appears more likely secondary to gastritis from non compliance to PPI. Howevr patient had an episode of feeling clammy today. Will monitor overnight and see ow patient feels throughout the day. 11/15 Symptoms are improving but he is not quite at baseline as of yet. WIll monitor how he tolerates diet. 11/16 Hemoglobin downtrending. will monitor for another day. Informed GI of blood work. willl likely decrease carvedilol. Fall With weakness with profound volume depletion CThead normal, chest x-ray clear Patient with right orbital contusion, EOMs intact without pain or entrapment and vision is without acute change. No neck pain no Hypercalcemia With significant volume contraction on admission due to recurrent nausea /vomiting IV resuscitation ordered, trended daily. If this does not resolve with rehydration, follow-up PTH/PTH RP/vitamin D. No known history of malignancy Patient has over 08-[id number]-yyue history of tobacco use last CT chest 03/2020 (2) COPD with acute exacerbation: Plan: COPD Previously following with [facility] pulmonology, stage IV COPD Last PFTs 2020 with FEV1 36% predicted, ratio 23 consistent with severe obstructive disease with moderate decrease in DLCO Continued on inhalers, theophylline Patient not had a screening CT and over or around 2 years. Has had increasing mucus production, cough and dyspnea on exertion. Increased risk of malignancy with 21-bdny-yxve history and hypercalcemia on admit. CT on admission without any suspicious nodules or acute findings (3) Bipolar disorder, unspecified: Plan: Mild dementia Follow-up with neurology as outpatient, normal EEG with no known seizure activity Memantine continued (4) Hypercalcemia: Plan: Trended. If remaining elevated following initial resuscitation add PTH/vitamin D. CT without suspicious (5) Hyperlipidemia: Plan: Home meds (6) Hypertension: Plan: Volume contracted, thiazide held Admission and Anticipated Discharge Date Admission Date: November 16, 2023 Subjective Patient reports doing well. Patient has no new complaints, Review of Systems Review of Systems: All systems reviewed & are unremarkable except as noted in HPI & below Physical Exam Physical Exam: General: A&Ox3. NAD. Cooperative. HEENT: Right contusion overlying medial orbit. Extraocular movements are intact without entrapment or pain. No decreased visual acuity, pupils equally reactive to light and accommodation Pulm: CTAB A&P. No increased work of breathing. No respiratory distress. Cardiac: RRR, . Abdominal: Nontender, nondistended, soft. BS present. Extremities: Warm and dry Results & Data Results & Data Vital Signs (Past 12 Hours) Vital Signs Temp Pulse Pulse Resp BP BP Pulse Ox 11/17/23 19:58 36.5 C 54 L 20 152/70 H 98 11/17/23 19:00 36.6 C 60 16 137/71 95 11/17/23 17:28 36.6 C 11/17/23 15:42 57 L 11/17/23 11:30 36.5 C 62 16 100/58 L 97 O2 Del Method 11/17/23 19:58 Room Air 11/17/23 19:00 Room Air 11/17/23 17:28 11/17/23 15:42 11/17/23 11:30 Room Air PG Care Time/CCT Total # of Minutes Spent Total Time Spent with Patient: Total time spent is greater than 50% in coordination of care (as documented) at patient's floor/unit and/or counseling patient: Coding Level of Care Code 43200 SUB INP/OBS CARE 2/35MIN Diagnoses Gastritis K29.70 COPD with acute exacerbation J44.1 Bipolar disorder, unspecified F31.9 Hypercalcemia E83.52 Hyperlipidemia E78.5 Hypertension I10
[2023-11-18 06:04] LABS: Hemoglobin 11.9 g/dl (14.0-18.0); Mean Corpuscular Hemoglobin 31.6 pg (25.0-34.0); Mean Corpuscular Hgb Conc 36.1 g/dL (32.0-36.0); Mean Corpuscular Volume 87.5 fL (80.0-100.0); Mean Platelet Volume 9.7 fL (9.4-12.4); Platelet Count 239 K/uL (130-400); RDW Coefficient of Variation 12.4 % (11.5-14.5); RDW Standard Deviation 39.8 fL (36.4-46.3); Red Blood Count 3.77 M/uL (4.70-6.10); White Blood Count 4.86 K/ul (4.8-10.8)
[2023-11-18 06:18] LABS: Anion Gap 5 (3-11); BUN Creatinine Ratio 15.6 (10-20); Blood Urea Nitrogen 15 mg/dl (6-23); C Reactive Protein < 0.50 mg/dl (0-0.5); Calcium 8.5 mg/dl (8.6-10.3); Carbon Dioxide 25 mmol/L (21-32); Chloride 106 mmol/L (98-107); Creatinine Clr Calc Pharmacy 66.5 ml/min; Est GFR (African American) 93.8 ml/min; Est GFR (Non-African American) 80.9 ml/min; Glucose 84 mg/dl (70-99(Fasting)); Sodium 136 mmol/L (136-145)
[2023-11-18 07:48] VITALS: PULSE 56; RESP 16; TEMP 97.7; O2SAT 96
--- NOTE | 2023-11-18 11:46 | Discharge Summary ---
Date of Service November 18, 2023 Admission HPI Per Admitting Provider Wild is a 67-year-old man presents with several weeks of nausea/vomiting and progressive weakness. Potassium <3 on admit Per Pt: Patient chronically has a cough and mucus with stage IV COPD however mucus seems to be increased for the last few weeks although he has not had any increased shortness of breath or wheezing. Has been using his inhalers and denies shortness of breath on admission. He has over the last 2 weeks have increased nausea and vomiting. No hematemesis, no melanic emesis. Had some intermittent episodes of loose bowels, no melena/hematochezia. Denies chest pain or chest pressure. He reports that yesterday he was walking from the kitchen and had a prodrome of lightheadedness and dizziness after vomiting but was not able to make it all the way to the couch and fell striking his face. He has no neck pain and no headache on admission. No fevers or chills. 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 Does not drink alcohol. Denies recreational drug use. Does have history of GERD and gastritis which he feels like is somewhat different and that his current symptoms are exacerbated by swallowing larger amounts of thick mucus. Patient has not had low-dose CT scr eening in over 2 years. Medical History: Reviewed Medications: Reviewed Surgical History: Reviewed Family history: Reviewed Allergies: Reviewed Social History: Reviewed. History of >40 p/y tobacco use. Code Status: DNR/DNI Principal Diagnosis gastritis Discharge Exam General: A&Ox3. NAD. Cooperative. HEENT: Right contusion overlying medial orbit. Extraocular movements are intact without entrapment or pain. No decreased visual acuity, pupils equally reactive to light and accommodation Pulm: CTAB A&P. No increased work of breathing. No respiratory distress. Cardiac: RRR, . Abdominal: Nontender, nondistended, soft. BS present. Extremities: Warm and dry Discharge Data Allergies Allergy/AdvReac Type Severity Reaction Status Date / Time gluten Allergy Severe celiac Verified 06/16/23 06:22 disease wheat Allergy Severe celiac Verified 06/16/23 06:22 disease NSAIDS (Non-Steroidal Allergy Intermediate Hives Verified 06/16/23 06:22 Anti-Inflamma aspirin Allergy Mild RASH,HIVES Verified 06/16/23 06:22 Consultations 11/14/23 17:15 ED Decision to Admit Stat 11/15/23 08:33 Consult Gastroenterology Routine Ordered Studies 11/14/23 14:01 CT head/brain wo con Stat 11/14/23 16:10 CT Abd and Pelvis [CT abd pelvis IV con only] Stat 11/14/23 17:37 CT chest diagnostic wo con Routine Hospital Course (1) Gastritis: Persistent nausea/vomiting - x2 weeks, nauseated all day, weak, hypokalemic. CT-A/P naf & s/p gracia. No bleeding. xaminases normal Potassium 2.7, high-sensitivity troponin 21.5 and normal on repeat, no chest pain. Suspect demand - Last EGD 03/2022: Gastritis. Biopsy with villous blunting and crypt hyperplasia potentially consistent with celiac, stomach biopsy with mild focal chronic gastritis and no evidence of H. pylori History of cholecystectomy No transaminitis No evidence of GI bleeding ? Gastritis. Given 2 weeks of symptoms bio fire is ordered PPI, H2, Carafate, Zofran ordered Hypokalemia to 2.7, 10meq KCl ordered while pt in ER. Mg 2.1. Additional 60meq KCl IV ordered. Recheck BMP q4h or after 4 K riders complete - Additional PO 20meq TID x6 doses ordered until PO/N/V improves. Adjust as needed. Hold if worsening GI sx On 11/14 This appears more likely secondary to gastritis from non compliance to PPI. Howevr patient had an episode of feeling clammy today. Will monitor overnight and see how patient feels throughout the day. 11/15 Symptoms are improving but he is not quite at baseline as of yet. WIll monitor how he tolerates diet. 11/16 concern over Hemoglobin downtrending. No signs of melena, hematoquezia or hematemesis. will monitor for another day. If plateaus, will discharge. Informed GI of blood work. will likely decrease carvedilol. 11/17 Hemoglobin stable. will discharge. Fall With weakness with profound volume depletion CThead normal, chest x-ray clear Patient with right orbital contusion, EOMs intact without pain or entrapment and vision is without acute change. No neck pain no Hypercalcemia With significant volume contraction on admission due to recurrent nausea/vomiting -Imrpoved with IVF - No known history of malignancy Patient has over 06-oggb-ezhv history of tobacco use last CT chest 03/2020 (2) COPD with acute exacerbation: COPD Previously following with [facility] pulmonology, stage IV COPD Last PFTs 2020 with FEV1 36% predicted, ratio 23 consistent with severe obstructive disease with moderate decrease in DLCO Continued on inhalers, theophylline Patient not had a screening CT and over or around 2 years. Has had increasing mucus production, cough and dyspnea on exertion. Increased risk of malignancy with 08-ytgn-dauj history and hypercalcemia on admit. CT on admission without any suspicious nodules or acute findings (3) Bipolar disorder, unspecified: Mild dementia Follow-up with neurology as outpatient, normal EEG with no known seizure activity Memantine continued (4) Hypercalcemia: Trended. If remaining elevated following initial resuscitation add PTH/vitamin D. CT without suspicious (5) Hyperlipidemia: Home meds (6) Hypertension: Volume contracted Total Time Total Time Spent Total Time Spent (In Minutes): 32 Discharge Plan Discharge Items Patient Disposition: Home - Self-Care Reason For Visit: HYPOKALEMIA, N/V X2 WEEKS Discharge Diagnosis: hypokalemia Activity: Resume your previous activity Non-emergency contact: Primary Care Provider Call non-emergency contact if: you have any medication questions Follow-up/Referrals: Fanny Clark PA-C [Primary Care Provider] - (PLEASE CALL YOUR PRIMARY CARE PROVIDER TO SCHEDULE A DISCHARGE HOSPITAL FOLLOW-UP APPOINTMENT WITHIN 7-10 DAYS) Diet: Regular Addtl Attending Provider Instructions: We will be stopping Chlorthalidone as this has valentine causing low potassium and your BP has been slightly lower here. We will continue carvedilol at your regular dose. I check your blood level as it appears to have stabilized. I also checked your inflammatory markers which were higher earlier in your hospital stay but this has subsided and normalized. Perhaps you had an underlying infection. Thankfully as your blood work has improved, we can discharge you. Pending Studies at Discharge: Yes Stand-Alone Forms: My [facility], Smoking Cessation Medications and DC Order Prescriptions: New pantoprazole 40 mg tablet,delayed release (DR/EC) 40 mg PO DAILY 28 Days Qty: 28 0RF sucralfate 1 gram tablet 1 g PO ACHS 28 Days Qty: 28 0RF Continued finasteride [Proscar] 5 mg Tablet 5 mg PO QAM Qty: 0 sertraline [Zoloft] 100 mg Tablet 200 mg PO QAM 90 Days Qty: 90 albuterol sulfate 2.5 mg /3 mL (0.083 %) Solution For Nebulization 2.5 mg INHALATION QID PRN (Reason: Wheezing) Qty: 0 tiotropium bromide [Spiriva with HandiHaler] 18 mcg Capsule, W/Inhalation Device 1 cap INHALATION QAM 30 Days Qty: 30 carvedilol 25 mg Tablet 25 mg PO BID theophylline 400 mg Tablet Extended Release 24 Hr 400 mg PO BID albuterol sulfate [Proventil HFA] 90 mcg/actuation Hfa Aerosol Inhaler 2 puff INHALATION Q6H PRN (Reason: Shortness Of Breath) atorvastatin 80 mg Tablet 80 mg PO QAM ferrous sulfate 325 mg (65 mg iron) tablet 325 mg PO Q OTHER DAY clopidogrel [Plavix] 75 mg Tablet 75 mg PO QAM clobetasol 0.05 % Cream 1 applic TOPICAL DAILY PRN (Reason: Other) tamsulosin 0.4 mg Capsule 0.4 mg PO HS fluticasone propion-salmeterol [Advair Diskus] 500-50 mcg/dose Blister With Device 1 inh INHALATION BID folic acid 1 mg Tablet 1 mg PO DAILY ezetimibe [Zetia] 10 mg Tablet 10 mg PO DAILY rivastigmine 4.6 mg/24 hour Patch 24 Hour 1 patch TRANSDERMAL DAILY prednisone 10 mg tablet 5 mg PO DIRECTED Patient Comments: takes a taper dose starting at 20 mg x 3 days,15 mg x 3 days, 10 mg x 3 days, then 5 mg x 3 days then off 12 days and then start over Rx Instructions: 11/14/23 In process to be mailed out per [place]:"start at 20mg go down by 5mg every 3 days" Discontinued omeprazole 20 mg Tablet,Delayed Release (Dr/Ec) 20 mg PO QAM Rx Instructions: 04/09 chlorthalidone 25 mg Tablet 25 mg PO DAILY Discharge Orders: Discharge Order (Routine); Ordered 11/18/23 Ordered By: Gibson Lloyd Admission Data Admit Date/Time: 11/16/23 13:27 Attending Provider: Gibson Lloyd Admit Provider: Goldy Shabazz Primary Care Provider: Fanny Clark Other Providers: Goldy Shabazz; [facility]; Roro Hall; Baldomero Alexander; Sangeeta Dumont; Yesenia Barnes; Carrie Neal; Joana Rachel; Lyle Jay; Fabio Berg; Sandeep Rosen; Paulette Nathan; Alpesh Karimi; Aspen Shen; Nidhi Campbell; Rebeka Madrigal; Diane Fraser; Radha Montes; Quentin Menjivar; Tre Mayfield; Kaylene Pedraza; Sarah Ochoa Jr Other Interventions: Discharge Summary Assessment (RN) Last Done: 11/18/23 12:29 Coding Level of Care Code 34447 INP/OBS DISCH >30 MIN Diagnoses Gastritis K29.70 COPD with acute exacerbation J44.1 Bipolar disorder, unspecified F31.9 Hypercalcemia E83.52 Hyperlipidemia E78.5 Hypertension I10
[2023-11-18 12:31] VITALS: BP 152/70
== END 2023-11-18 12:57 | disposition home or self-care (01) | DRG 392 ==
LOC: EDINP 13:46 → ED 13:46 → SUATTDRO 17:27 → 2N 11-15 19:55

== ENCOUNTER 2024-04-06 19:40 | Observation (INO) ==
--- NOTE | 2024-04-06 20:08 | Emergency Department Note ---
Impression & Plan Manic episode Admission under 302 ED Provider Note HPI: History obtained from patient, , son over the phone. The patient is a 68-year-old gentleman with history of COPD, dementia, bipolar disorder not currently on any medications, anxiety disorder, presents the emergency department with his over concern for abnormal behavior over the past several days. Cording to the patient's and his son over the phone, the patient has not been sleeping over the past several days. He has been very anxious and paranoid and agitated. He has been making nonsensical statements and leaving "notes" for his son that did not make sense. Patient's son states "this is the worst he has ever been". They have concerns because the patient has not been taking his medications and he has not been sleeping and generally has not been able to take care of himself. They state that this seems to have been an acute chemical cell changer the past several days although he does have a history of 302 admission for some similar type behavior previously according to his son. On arrival here to the ED the patient is very agitated and anxious appearing. He is alert but he is unwilling to give me any history. Patient states "if you do not know why I am here than I do not want to talk to you". While I am talking the patient he is noted to be with some audible expiratory wheezing. ROS: - Per HPI Differential Diagnosis: Bipolar disorder with acute fran, COPD exacerbation, acute psychosis, intracranial injury to include hemorrhage or stroke, infection/sepsis, amongst other potential pathologies. *Outpatient medications and allergy history reviewed. PE: General: Alert, agitated HEENT: Normocephalic, trachea midline Eyes: Extraocular eye movement is intact, no scleral erythema Pulmonary: Audible wheezing with tachypnea Cardio: Patient appears well-perfused without cyanosis GI: Abdomen is nondistended : Deferred MSK: No evidence of trauma or malformation of the extremities, no edema Skin: No evidence of rash Neuro: Alert, no focal deficits Psychiatric: Agitated, tangential thought process INDEPENDENT INTERPRETATIONS: cafeteria monitor: (As interpreted by myself): - An order was placed for continuous cardiac monitoring - Patient was noted to be in sinus rhythm with a rate of 90 EKG: (As interpreted by myself): Rate: 122 Rhythm: Sinus tachycardia Intervals: QRS 120 ms, otherwise within normal limits ST changes: No ST elevation Time: 2018 Chest x-ray: (As interpreted by myself): No acute disease Interventions provided in ED: -Haldol, DuoNeb breathing treatment Medical Decision Making: Patient presented to the emergency department in an apparent manic state, his states that he has been very agitated and has not been making much sense at home over the past several days. His son also told me over the phone that his father has been displaying similar behavior and does not seem to be in his normal state of mind. He mentions that his father does have a history of bipolar disorder and did previously require an admission under 302 for similar behavior in the past. His son does note over the phone that this is "the worst he has been". On my assessment here in the ED the patient is very agitated, he has a tangential thought process and frequently asks people to leave the room because he does not want to talk to them. He is unable to provide me with any useful history secondary to his fran and agitation. His and his son both tell me that the patient has not had any sleep in about the past 3 days. While I am speaking to the patient he does display some tachypnea and audible wheezing. He does have a history of COPD and I do of concern that with his age and underlying conditions including dementia and COPD he is at imminent risk of decline from a medical standpoint secondary to his underlying psychiatric disorder. He does not have good insight into his current condition and I do feel that he is at risk for decompensation mentally and physically that would put him at risk of imminent harm to himself and even within the next 30 days. Given this, 302 was filed by myself with Dr. Lane as the supplementary human factors specialist to uphold the 302. Please see her separate documentation for details of her encounter with the patient. Medical workup was initiated and the patient was given a DuoNeb breathing treatment as well as Haldol for his agitation. He did respond well to the Haldol and a DuoNeb breathing treatment and his blood pressure and tachycardia did improve while he was here in the ED. His lab work is generally unremarkable including a VBG with pH of 7.44 and pCO2 slightly reduced at 37. CT imaging of the head was obtained and per my review does not show any evidence of any acute intracranial hemorrhage. Official read from stat read is still currently pending. [facility] hospitalist service was consulted for admission, I did discuss the patient's case with the on-call admitting resident. Patient was placed for admission in stable condition for underlying fran with COPD exacerbation with plan for psychiatric consultation under 302 admission. Patient's family was in agreement to this plan. Consultants/Discussions held with other healthcare providers: -Case management, Jillian Noe -Hospitalist, Dr. Pineda Disposition discussion held by myself with: -Patient's * CRITICAL CARE TIME: ( 37 ) minutes -Stabilization of patient with acute fran requiring IV medications for sedation, time spent at the bedside, interpretation of diagnostic studies, discussion with case management and discussion with family in regards to the patient's presentation, ultimate filing of 302 for involuntary admission with plan for inpatient psychiatric consultation Diagnosis: 1. Acute fran with agitation 2. Inability to care for self 3. History of bipolar disorder 4. COPD exacerbation with wheezing, acute 5. Insomnia Disposition: Admission under 302 Issac Suazo DO Emergency Medicine Past Med/Surg History Problem List Manic episode (Acute) Insomnia (Acute) Domestic problems (Acute) Anxiety (Acute) COPD (chronic obstructive pulmonary disease) Osteoporosis History of colon polyps Gastritis Elevated troponin (Acute) Acute hypokalemia (Acute) Intractable nausea and vomiting (Acute) S/P trigger finger release Trigger finger, right ring finger Trigger thumb of right hand AMS (altered mental status) Encounter for pre-operative examination COVID (Acute) Other instability, left elbow Rotator cuff tear, left Celiac disease Encounter for pre-operative examination Abnormal EKG (Acute) Hypercalcemia (Acute) Vomiting (Acute) Acute duodenitis (Acute) COPD with acute exacerbation (Acute) Anemia (Acute) Chronic pain Weight loss Hemostasis disorder (Acute) COPD (chronic obstructive pulmonary disease) (Acute) COPD (chronic obstructive pulmonary disease) (Chronic) Severe recurrent major depression without psychotic features (Acute 04/19/11) Acute exacerbation of chronic obstructive airways disease (Acute 02/07/11) Generalized anxiety disorder (Chronic 03/31/11) Pulmonary nodule Bipolar disorder, unspecified (Acute) Heart disease (Chronic) Hx of venous thrombosis and embolism (Acute) PATTON (dyspnea on exertion) Restless leg GERD (gastroesophageal reflux disease) Well controlled and stable BPH (benign prostatic hyperplasia) Hyperlipidemia Hypertension Status post reverse arthroplasty of right shoulder (~04/2020) Medical History On anticoagulant therapy Hx of non-ST elevation myocardial infarction (NSTEMI) Dementia History of COVID-19 Celiac disease On home oxygen therapy PVD (peripheral vascular disease) Anxiety and depression Immunoglobulin G deficiency Hearing deficit Deep vein thrombosis Pulmonary embolism Aortic valve defect Lung nodules Sleep apnea Chronic obstructive pulmonary disease Asthma Surgical History Status post trigger finger release History of transesophageal echocardiography (MELISSA) (~08/16/19) History of cardiac cath (~05/15/19) History of vascular access device History of umbilical hernia repair History of right inguinal hernia repair History of cholecystectomy History of colonoscopy History of esophagogastroduodenoscopy (EGD) History of phacoemulsification of cataract of both eyes with intraocular lens implantation History of angioplasty History of aortic valve replacement History of bronchoscopy Family History Father Family history of diabetes mellitus Other No family history of adverse response to anesthesia Social History Smoking Status: Former smoker Tobacco Type: Cigarettes Second Hand Exposure: No; Do You Dip or Chew Tobacco: No; Hx Alcohol Use: No Hx Substance Use: No Preferred Language: [place] Communication Ability: Effective 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: No Beliefs That Will Affect Care: None marital status: Current Living Situation: Family Current Living Situation Comment: Lives with and son Feels Safe at Home: Yes Gender Identity: Male Assistive Devices: Denture - Upper, Denture - Lower, Hearing Aid - Bilateral and Oxygen - at Night Allergies Allergies Allergy/AdvReac Type Severity Reaction Status Date / Time gluten Allergy Severe celiac Verified 03/15/24 09:53 disease wheat Allergy Severe celiac Verified 03/15/24 09:53 disease NSAIDS (Non-Steroidal Allergy Intermediate Hives Verified 03/15/24 09:53 Anti-Inflamma aspirin Allergy Mild RASH,HIVES Verified 03/15/24 09:53 lisinopril Allergy Mild Hives Verified 03/15/24 09:53 naproxen [From Naprosyn] Allergy Mild Hives Verified 03/15/24 09:53 Home Meds Home Medications Medication Instructions Recorded Confirmed sertraline 100 mg tablet (Zoloft) 200 mg PO QAM 90 days #90 tabs 06/04/15 04/06/24 tiotropium bromide 18 mcg capsule 1 cap inhalation QAM 30 days #30 02/03/18 04/06/24 with inhalation device (Spiriva caps with HandiHaler) albuterol sulfate 90 mcg/actuation 2 puff inhalation Q6H PRN 01/16/19 04/06/24 aerosol inhaler (Proventil HFA) Shortness Of Breath atorvastatin 80 mg tablet 80 mg PO QAM 01/16/19 04/06/24 theophylline 400 mg 400 mg PO BID 01/16/19 04/06/24 tablet,extended release 24 hr carvedilol 25 mg tablet 25 mg PO BID 04/18/20 04/06/24 ferrous sulfate 325 mg (65 mg 325 mg PO Q OTHER DAY 12/11/20 04/06/24 iron) tablet clopidogrel 75 mg tablet (Plavix) 75 mg PO QAM 04/08/22 04/06/24 clobetasol 0.05 % topical cream 1 applic topical DAILY PRN Rash 11/14/23 04/06/24 ezetimibe 10 mg tablet (Zetia) 10 mg PO HS 11/14/23 04/06/24 folic acid 1 mg tablet 1 mg PO DAILY 11/14/23 04/06/24 rivastigmine 4.6 mg/24 hour 1 patch transdermal DAILY 11/14/23 04/06/24 transdermal patch ketotifen fumarate 0.025 % (0.035 1 drp ophthalmic (eye) BID PRN Eye 12/13/23 04/06/24 %) eye drops Irritation chlorthalidone 25 mg tablet 25 mg PO DAILY 01/03/24 04/06/24 calcium carb,cit 315 mg-vitamin D3 1 tab PO BID 02/28/24 04/06/24 250 unit-phytosterols 200 mg tablet carbamide peroxide 6.5 % ear drops 5 drp otic (ear) DAILY ear was 02/28/24 04/06/24 cholecalciferol (vitamin D3) 25 50 mcg PO DAILY 02/28/24 04/06/24 mcg (1,000 unit) tablet famotidine 20 mg tablet 20 mg PO DAILY 02/28/24 04/06/24 pantoprazole 40 mg tablet,delayed 40 mg PO DAILY 02/28/24 04/06/24 release teriparatide 20 mcg/dose (620 20 mcg subcut DAILY 02/28/24 04/05/24 mcg/2.48 mL) subcutaneous pen injector prednisone 10 mg tablet 5 mg PO DIRECTED PRN exac of 03/15/24 04/06/24 COPD fluticasone 500 mcg-salmeterol 50 1 inh inhalation BID 04/06/24 04/06/24 mcg/dose blistr powdr for inhalation food supplemt, lactose-reduced ea BID 04/06/24 (Ensure oral liquid) ketoconazole 2 % shampoo topical Q OTHER DAY 04/06/24 tamsulosin 0.4 mg capsule 0.4 mg PO HS 04/06/24 04/06/24 Results & Data (ED) Vital Signs Vital Signs - 24 hr 04/06/24 19:43 04/06/24 20:19 04/06/24 20:21 Temperature 36.7 C Temperature Source Temporal Artery Scan Pulse Rate 128 H 125 H 124 H Pulse Rate [Apical] Pulse Rate from SpO2 Sensor 124 H Respiratory Rate 22 26 H Respiratory Effort / Characteristics Non-Labored Spontaneous Respiratory Depth Normal Respiratory Pattern Regular Blood Pressure 191/122 H 195/132 H Blood Pressure [Right Arm] Blood Pressure Mean 145 153 Blood Pressure Mean [Right Arm] Pulse Oximetry 92 96 Oxygen Delivery Method Room Air Nasal Cannula Oxygen Flow Rate 2 Sepsis Recent Fever Within 48 Hours No Sepsis New/Unexplained Change in Mental Status No Sepsis Action Taken by Nursing No Action Required 04/06/24 21:00 04/06/24 22:30 Temperature Temperature Source Pulse Rate Pulse Rate [Apical] 111 H 88 Pulse Rate from SpO2 Sensor Respiratory Rate 18 20 Respiratory Effort / Characteristics Non-Labored Spontaneous Respiratory Depth Normal Respiratory Pattern Regular Blood Pressure Blood Pressure [Right Arm] 155/92 H 119/74 Blood Pressure Mean Blood Pressure Mean [Right Arm] 113 89 Pulse Oximetry 97 94 Oxygen Delivery Method Room Air Room Air Oxygen Flow Rate Sepsis Recent Fever Within 48 Hours Sepsis New/Unexplained Change in Mental Status Sepsis Action Taken by Nursing Laboratory Data 04/06/24 20:05 04/06/24 20:10 Lab Results 04/06/24 04/06/24 04/06/24 Range/Units 20:05 20:10 21:31 WBC 9.41 (4.8-10.8) K/ul RBC 5.22 (4.70-6.10) M/uL Hgb 15.5 (14.0-18.0) g/dl Hct 43.8 (42.0-52.0) % MCV 83.9 (80.0-100.0) fL MCH 29.7 (25.0-34.0) pg MCHC 35.4 (32.0-36.0) g/dL RDW Std Deviation 40.6 (36.4-46.3) fL RDW Coeff of Rosario 13.2 (11.5-14.5) % Plt Count 346 (130-400) K/uL MPV 9.5 (9.4-12.4) fL Immature Gran % (Auto) 0.4 % Neut % (Auto) 64.7 % Lymph % (Auto) 22.4 % Barber % (Auto) 10.0 % Eos % (Auto) 1.4 % Baso % (Auto) 1.1 % Neut # (Auto) 6.09 (1.40-6.50) K/uL Lymph # (Auto) 2.11 (1.20-3.40) K/uL Barber # (Auto) 0.94 H (0.11-0.59) K/uL Eos # (Auto) 0.13 (0.00-0.50) K/uL Baso # (Auto) 0.10 (0.00-0.20) K/uL Immature Gran # (Auto) 0.04 (0.01-0.20) K/uL VBG pH 7.44 H (7.36-7.41) VBG pCO2 37 L (38-50) mmHg VBG pO2 46 mmHg VBG HCO3 25 mmol/L VBG O2 Saturation 81.5 % VBG Base Excess 1.1 mEq/L Sodium 138 (136-145) mmol/L Potassium 3.5 (3.5-5.1) mmol/L Chloride 101 (98-107) mmol/L Carbon Dioxide 23 (21-32) mmol/L Anion Gap 14 H (3-11) BUN 17 (6-23) mg/dl Creatinine 1.16 (0.6-1.4) mg/dl Est Cr Clr Drug Dosing 53.0 ml/min Est GFR ( Amer) 74.1 ml/min Est GFR (Non-Af Amer) 63.9 ml/min BUN/Creatinine Ratio 14.7 (10-20) Glucose 163 H (70-99(Fasting)) mg/dl Calcium 10.5 H (8.6-10.3) mg/dl Total Bilirubin 0.8 (0.2-1.0) mg/dl AST 27 (13-39) U/L ALT 17 (7-52) U/L Alkaline Phosphatase 72 (34-104) U/L Total Protein 8.2 (6.0-8.3) gm/dl Albumin 4.8 (3.4-5.0) gm/dl Globulin 3.4 (2.5-4.0) gm/dl Albumin/Globulin Ratio 1.4 (0.9-2) TSH 1.725 (0.300-4.500) uIu/ml Salicylates < 3.0 L (3.0-30) mg/dl Acetaminophen < 3 L (10-30) ug/ml Ethyl Alcohol mg/dL < 10.0 (<10.0) mg/dl Administered Medications Discontinued Medications Albuterol (Albut/Ipratrop 3mg/0.5mg Neb 3 Ml Vial) 3 ml NEB NOW STA; Protocol Stop: 04/06/24 20:07 Last Admin: 04/06/24 20:29 Dose: 3 ml Documented By: NOEL Haloperidol Lactate (Haloperidol Lactate 5 Mg/Ml 1 Ml Vial) 5 mg IM NOW STA Stop: 04/06/24 20:06 Last Admin: 04/06/24 20:29 Dose: Not Given Documented By: KIRSTIE Haloperidol Lactate (Haloperidol Lactate 5 Mg/Ml 1 Ml Vial) 5 mg IV NOW STA Stop: 04/06/24 21:42 Last Admin: 04/06/24 21:45 Dose: 5 mg Documented By: KIRSTIE Discharge Plan Visit Data Chief Complaint: Mental Health Evaluation Stated Complaint: MENTAL HEALTH EVAL, POSSIBLE 302 ED Provider: Issac Suazo Discharge Problem: Manic episode Forms Stand Alone Forms: [facility], Suicide Prevention Resources Prescriptions Prescriptions: No Action sertraline [Zoloft] 100 mg Tablet 200 mg PO QAM 90 Days Qty: 90 tiotropium bromide [Spiriva with HandiHaler] 18 mcg Capsule, W/Inhalation Device 1 cap INHALATION QAM 30 Days Qty: 30 ketotifen fumarate 0.025 % (0.035 %) drops 1 drp ophthalmic (eye) BID PRN (Reason: Eye Irritation) Rx Instructions: administer at least 8 hours apart teriparatide 20 mcg/dose (620mcg/2.48mL) pen injector 20 mcg subcut DAILY calcium carb,[id number] 315-250-200 mg-unit-mg tablet 1 tab PO BID carbamide peroxide 6.5 % drops 5 drp otic (ear) DAILY Rx Instructions: Use for up to 4 days for ear wax cholecalciferol (vitamin D3) 25 mcg (1,000 unit) tablet 50 mcg PO DAILY famotidine 20 mg tablet 20 mg PO DAILY pantoprazole 40 mg tablet,delayed release (DR/EC) 40 mg PO DAILY carvedilol 25 mg Tablet 25 mg PO BID theophylline 400 mg Tablet Extended Release 24 Hr 400 mg PO BID albuterol sulfate [Proventil HFA] 90 mcg/actuation Hfa Aerosol Inhaler 2 puff INHALATION Q6H PRN (Reason: Shortness Of Breath) atorvastatin 80 mg Tablet 80 mg PO QAM ferrous sulfate 325 mg (65 mg iron) tablet 325 mg PO Q OTHER DAY clopidogrel [Plavix] 75 mg Tablet 75 mg PO QAM chlorthalidone 25 mg Tablet 25 mg PO DAILY ketoconazole 2 % Shampoo TOPICAL Q OTHER DAY tamsulosin 0.4 mg Capsule 0.4 mg PO HS fluticasone propion-salmeterol 500-50 mcg/dose Blister With Device 1 inh INHALATION BID Ensure Liquid BID clobetasol 0.05 % Cream 1 applic TOPICAL DAILY PRN (Reason: Rash) folic acid 1 mg Tablet 1 mg PO DAILY ezetimibe [Zetia] 10 mg Tablet 10 mg PO HS rivastigmine 4.6 mg/24 hour Patch 24 Hour 1 patch TRANSDERMAL DAILY prednisone 10 mg tablet 5 mg PO DIRECTED PRN (Reason: exac of COPD) Patient Comments: takes a taper dose starting at 20 mg x 3 days,15 mg x 3 days, 10 mg x 3 days, then 5 mg x 3 days then off 12 days and then start over Rx Instructions: 11/14/23 In [facility]:"start at 20mg go down by 5mg every 3 days" Referrals Referrals: Fanny Clark PA-C [Primary Care Provider] -
[2024-04-06] MEDS: HALOPERIDOL LACTATE 5 MG/ML 1 ML VIAL IM STA (20:29)
[2024-04-06] MEDS: ALBUT/IPRATROP 3MG/0.5MG NEB 3 ML VIAL NEB STA (20:29)
[2024-04-06 20:31] LABS: Basophils % (auto) 1.1 %; Eosinophils # (auto) 0.13 K/uL (0.00-0.50); Eosinophils % (auto) 1.4 %; Hematocrit (blood only) 43.8 % (42.0-52.0); Hemoglobin 15.5 g/dl (14.0-18.0); Immature Granulocytes # (auto) 0.04 K/uL (0.01-0.20); Immature Granulocytes % (auto) 0.4 %; Lymphocytes # (auto) 2.11 K/uL (1.20-3.40); Lymphocytes % (auto) 22.4 %; Mean Corpuscular Hemoglobin 29.7 pg (25.0-34.0); Mean Corpuscular Hgb Conc 35.4 g/dL (32.0-36.0); Mean Corpuscular Volume 83.9 fL (80.0-100.0); Mean Platelet Volume 9.5 fL (9.4-12.4); Monocytes # (auto) 0.94 K/uL (0.11-0.59); Neutrophils # (auto) 6.09 K/uL (1.40-6.50); Neutrophils % (auto) 64.7 %; Platelet Count 346 K/uL (130-400); RDW Coefficient of Variation 13.2 % (11.5-14.5); RDW Standard Deviation 40.6 fL (36.4-46.3); Red Blood Count 5.22 M/uL (4.70-6.10); White Blood Count 9.41 K/ul (4.8-10.8)
[2024-04-06 20:44] LABS: Albumin Level 4.8 gm/dl (3.4-5.0); Bilirubin,Total 0.8 mg/dl (0.2-1.0); Calcium 10.5 mg/dl (8.6-10.3); Potassium 3.5 mmol/L (3.5-5.1)
[2024-04-06 20:50] LABS: Albumin Globulin Ratio 1.4 (0.9-2); BUN Creatinine Ratio 14.7 (10-20); Est GFR (African American) 74.1 ml/min; Est GFR (Non-African American) 63.9 ml/min; Globulin 3.4 gm/dl (2.5-4.0); Total Protein 8.2 gm/dl (6.0-8.3)
[2024-04-06 20:51] LABS: Acetaminophen < 3 ug/ml (10-30); Salicylate < 3.0 mg/dl (3.0-30)
[2024-04-06 21:10] LABS: Thyroid Stimulating Hormone 1.725 uIu/ml (0.300-4.500)
[2024-04-06 21:41] LABS: Base Excess VBG 1.1 mEq/L; HCO3 VBG 25 mmol/L; Oxygen Saturation VBG 81.5 %; PCO2 VBG 37 mmHg (38-50); PO2 VBG 46 mmHg; pH VBG 7.44 (7.36-7.41)
[2024-04-06] MEDS: HALOPERIDOL LACTATE 5 MG/ML 1 ML VIAL IV STA (21:45)
--- NOTE | 2024-04-06 22:17 | Emergency Department Note ---
ED Visit Note I was asked by Dr. Suazo to assess the patient, given concern for his ability to care for himself at home and his manic state and desire to file a two- physician 302. Patient is difficult to get any history from, as he has tangential thinking and seems to be very manic. He has flight of ideas and alternates between stating that he has "planted seeds in your head" and stating that I do not "know anything about anything." He is oriented to self only. His speech is slightly pressured. He continues to have tangential thinking and bounce from topic to topic. He seems to have decompensated since arrival in the emergency department and is now yelling at staff members. In agreement with Dr. Suazo about patient's safety, and given patient's notable lack of decision-making capacity, I did uphold the 302 petition. .
--- NOTE | 2024-04-06 23:22 | History & Physical Report ---
Date of Service April 06, 2024 Assessment & Plan (1) Manic episode: Plan: - Labs without cause for metabolic encephalopathy, CT Head without acute pathology -[address] Hoyt and Dr. Valdes in the ED - one to one, suicide precautions - psych consulted - continue Zoloft, concern for withdrawal with sudden stop, but with manic episode may need to reconsider medication options (2) COPD (chronic obstructive pulmonary disease): Plan: - s/p Duoneb on the ED; now on room air - no signs of acute exacerbation - Duo-neb prn - continue home inhalers - continue theophylline, check level (3) GERD (gastroesophageal reflux disease): Plan: - continue PPI (4) Hyperlipidemia: Plan: - continue statin, zetia (5) Hypertension: Plan: - continue carvedilol (6) BPH (benign prostatic hyperplasia): Plan: - continue tamsulosin (7) Dementia: Plan: - continue Rivastigmine (8) CAD (coronary artery disease): Plan: - continue plavix Plan Diet: Regular Code: Full- tried to contact did not answer, should discuss with her in the morning VTE prophalsis: Lovenox History of Present Illness Primary Care Provider: Fanny Clark PA-C 68 year old male with a past medical history of COPD, bipolar disorder, dementia presenting with concern for manic episode. History obtained per ED physician and chart review, limited history from patient. Attempted to call , no answer. Came with with concern for manic episode. Per family has not been sleeping over the past couple of days. Has a history of bipolar disorder and has not been taking medications. Was seen in the ED 04/05 with concern for lack of support at home, refused resources and d/c home. When I elevated the patient, he stated that he was feeling well. Hoping to get some sleep. No complaints. Unsure as to why he was here. ED Course Significant for: Tachycardiac/Hypertensive. Reportedly audible wheezing s/p DuoNeb with improvement. Was agitated in the ED and received 5mg Haldol x 2. Allergies Allergy/AdvReac Type Severity Reaction Status Date / Time gluten Allergy Severe celiac Verified 03/15/24 09:53 disease wheat Allergy Severe celiac Verified 03/15/24 09:53 disease NSAIDS (Non-Steroidal Allergy Intermediate Hives Verified 03/15/24 09:53 Anti-Inflamma aspirin Allergy Mild RASH,HIVES Verified 03/15/24 09:53 lisinopril Allergy Mild Hives Verified 03/15/24 09:53 naproxen [From Naprosyn] Allergy Mild Hives Verified 03/15/24 09:53 Home Medications Medication Instructions Recorded Confirmed Type sertraline 100 mg tablet (Zoloft) 200 mg PO QAM 90 days #90 tabs 06/04/15 04/06/24 History tiotropium bromide 18 mcg capsule 1 cap inhalation QAM 30 days #30 02/03/18 04/06/24 History with inhalation device (Spiriva caps with HandiHaler) albuterol sulfate 90 mcg/actuation 2 puff inhalation Q6H PRN 01/16/19 04/06/24 History aerosol inhaler (Proventil HFA) Shortness Of Breath atorvastatin 80 mg tablet 80 mg PO QAM 01/16/19 04/06/24 History theophylline 400 mg 400 mg PO BID 01/16/19 04/06/24 History tablet,extended release 24 hr carvedilol 25 mg tablet 25 mg PO BID 04/18/20 04/06/24 History ferrous sulfate 325 mg (65 mg 325 mg PO Q OTHER DAY 12/11/20 04/06/24 History iron) tablet clopidogrel 75 mg tablet (Plavix) 75 mg PO QAM 04/08/22 04/06/24 History clobetasol 0.05 % topical cream 1 applic topical DAILY PRN Rash 11/14/23 04/06/24 History ezetimibe 10 mg tablet (Zetia) 10 mg PO HS 11/14/23 04/06/24 History folic acid 1 mg tablet 1 mg PO DAILY 11/14/23 04/06/24 History rivastigmine 4.6 mg/24 hour 1 patch transdermal DAILY 11/14/23 04/06/24 History transdermal patch ketotifen fumarate 0.025 % (0.035 1 drp ophthalmic (eye) BID PRN Eye 12/13/23 04/06/24 History %) eye drops Irritation chlorthalidone 25 mg tablet 25 mg PO DAILY 01/03/24 04/06/24 History calcium carb,cit 315 mg-vitamin D3 1 tab PO BID 02/28/24 04/06/24 History 250 unit-phytosterols 200 mg tablet carbamide peroxide 6.5 % ear drops 5 drp otic (ear) DAILY ear was 02/28/24 04/06/24 History cholecalciferol (vitamin D3) 25 50 mcg PO DAILY 02/28/24 04/06/24 History mcg (1,000 unit) tablet famotidine 20 mg tablet 20 mg PO DAILY 02/28/24 04/06/24 History pantoprazole 40 mg tablet,delayed 40 mg PO DAILY 02/28/24 04/06/24 History release teriparatide 20 mcg/dose (620 20 mcg subcut DAILY 02/28/24 04/05/24 History mcg/2.48 mL) subcutaneous pen injector prednisone 10 mg tablet 5 mg PO DIRECTED PRN exac of 03/15/24 04/06/24 History COPD fluticasone 500 mcg-salmeterol 50 1 inh inhalation BID 04/06/24 04/06/24 History mcg/dose blistr powdr for inhalation food supplemt, lactose-reduced ea BID 04/06/24 History (Ensure oral liquid) ketoconazole 2 % shampoo topical Q OTHER DAY 04/06/24 History tamsulosin 0.4 mg capsule 0.4 mg PO HS 04/06/24 04/06/24 History Past Med/Surg History Problem List CAD (coronary artery disease) Dementia stage 3 Manic episode (Acute) Insomnia (Acute) Domestic problems (Acute) Anxiety (Acute) COPD (chronic obstructive pulmonary disease) Osteoporosis History of colon polyps Gastritis Elevated troponin (Acute) Acute hypokalemia (Acute) Intractable nausea and vomiting (Acute) S/P trigger finger release Trigger finger, right ring finger Trigger thumb of right hand AMS (altered mental status) Encounter for pre-operative examination COVID (Acute) Other instability, left elbow Rotator cuff tear, left Celiac disease Encounter for pre-operative examination Abnormal EKG (Acute) Hypercalcemia (Acute) Vomiting (Acute) Acute duodenitis (Acute) COPD with acute exacerbation (Acute) Anemia (Acute) Chronic pain Weight loss Hemostasis disorder (Acute) COPD (chronic obstructive pulmonary disease) (Acute) COPD (chronic obstructive pulmonary disease) (Chronic) Severe recurrent major depression without psychotic features (Acute 04/19/11) Acute exacerbation of chronic obstructive airways disease (Acute 02/07/11) Generalized anxiety disorder (Chronic 03/31/11) Pulmonary nodule Bipolar disorder, unspecified (Acute) Heart disease (Chronic) Hx of venous thrombosis and embolism (Acute) PATTON (dyspnea on exertion) Restless leg GERD (gastroesophageal reflux disease) Well controlled and stable BPH (benign prostatic hyperplasia) Hyperlipidemia Hypertension Status post reverse arthroplasty of right shoulder (~04/2020) Medical History On anticoagulant therapy Hx of non-ST elevation myocardial infarction (NSTEMI) Dementia History of COVID-19 Celiac disease On home oxygen therapy PVD (peripheral vascular disease) Anxiety and depression Immunoglobulin G deficiency Hearing deficit Deep vein thrombosis Pulmonary embolism Aortic valve defect Lung nodules Sleep apnea Chronic obstructive pulmonary disease Asthma Surgical History Status post trigger finger release History of transesophageal echocardiography (MELISSA) (~08/16/19) History of cardiac cath (~05/15/19) History of vascular access device History of umbilical hernia repair History of right inguinal hernia repair History of cholecystectomy History of colonoscopy History of esophagogastroduodenoscopy (EGD) History of phacoemulsification of cataract of both eyes with intraocular lens implantation History of angioplasty History of aortic valve replacement History of bronchoscopy Family History Father Family history of diabetes mellitus Other No family history of adverse response to anesthesia Social History Smoking Status: Former smoker Tobacco Type: Cigarettes Second Hand Exposure: No; Do You Dip or Chew Tobacco: No; Hx Alcohol Use: No Hx Substance Use: Yes Preferred Language: Mongolian Communication Ability: Effective 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 Systems Professor Required: No Beliefs That Will Affect Care: None marital status: Current Living Situation: Spouse and Family Current Living Situation Comment: Lives with and son Other Information That Helps Us Care for You: No Feels Safe at Home: Yes Safety Concerns: Feels Safe At This Time Gender Identity: Male Assistive Devices: Denture - Upper, Denture - Lower, Hearing Aid - Bilateral and Oxygen - at Night Review of Systems Review of Systems: As per above Physical Exam Physical Exam: Constitutional: well-appearing, no acute distress HEENT: NCAT, no conjunctival injection CV: regular rhythm, no murmur appreciated, extremities well-perfused, no LE edema Resp: + scattered end expiratory wheezing, no increased work of breathing GI: soft, nondistended, nontender MSK: no gross deformities appreciated Skin: warm, dry, no rash appreciated Neuro: alert, oriented, no focal neurologic deficit appreciated Results & Data Results & Data Vital Signs (Past 12 Hours) Vital Signs Temp Pulse Pulse Resp BP BP Pulse Ox 04/06/24 22:30 88 20 119/74 94 04/06/24 21:00 111 H 18 155/92 H 97 04/06/24 20:21 124 H 26 H 195/132 H 96 04/06/24 20:19 125 H 04/06/24 19:43 36.7 C 128 H 22 191/122 H 92 O2 Del Method O2 Flow Rate 04/06/24 22:30 Room Air 04/06/24 21:00 Room Air 04/06/24 20:21 Nasal Cannula 2 04/06/24 20:19 04/06/24 19:43 Room Air Supervising Physician Co-Signing Physician Notes Attending addendum: I have physically seen this patient, have supervised the medical residents activities, and agree with the H&P unless as otherwise noted. Assessment and Plan: Manic episode/302- One-to-one observation with suicide precautions Per family, the patient has not been sleeping for the past several days, is very anxious, paranoid and agitated, and making nonsensical statements. They report that the patient has not been taking his medications, and has not been able to take care of himself. Consult psychiatry He received Haldol 5 mg IM x 2 from the ED, with reported improvement prior to being seen by the hospitalist service Unclear how long patient has been without medications, will therefore hold sertraline at this time CAD/hypertension- Continue carvedilol, atorvastatin, clopidogrel, Zetia Hold chlorthalidone COPD- Continue albuterol HFA, Duonebs every 4 hours while awake and every 2 hours when necessary. Continue fluticasone/vilanterol, and umeclidinium bromide Hold theophylline until level is returned BPH with LUTS- Continue tamsulosin Resident Activity Tracking Resident Involvement: Resident Care Provided Care Provided: Adult Hospital Medicine (2) COPD (chronic obstructive pulmonary disease) COPD type: emphysema Emphysema type: unspecified Qualified Code(s): J43.9 - Emphysema, unspecified
[2024-04-06] MEDS ORDERED: ALBUT/IPRATROP 3MG/0.5MG NEB 3 ML VIAL NEB PRN (23:45)
[2024-04-06] MEDS ORDERED: CLOBETASOL PROPIONATE 0.05% CREAM 15 GM TUBE TOP PRN (23:45)
[2024-04-06] MEDS ORDERED: ALBUTEROL HFA 8 GM INHALER INH PRN (23:45)
--- NOTE | 2024-04-07 00:23 | CT Scan Report ---
Exam(s): CT HEAD Without Contrast EXAM: CT Head Without Intravenous Contrast CLINICAL HISTORY: Reason for exam: AMS. TECHNIQUE: Axial computed tomography images of the head/brain without intravenous contrast. CTDI is 36.67 mGy and DLP is 547.75 mGy-cm. Automated exposure control was utilized for the study. A dose lowering technique was utilized adhering to the principles of ALARA. COMPARISON: Head CT 11/14/2023 FINDINGS: Brain: No hemorrhage, extra-axial fluid collection, mass effect, or edema. Ventricles: Unremarkable. Bones/joints: Unremarkable. No fracture. Soft tissues: Unremarkable. Sinuses: No acute sinusitis. Mastoid air cells: Unremarkable as visualized. IMPRESSION: 1. No acute intracranial abnormality. Electronically signed by: Edwar Onofre MD 04/07/24 00:22 AM
[2024-04-07] MEDS: hydrALAZINE HCL 20 MG/ML VIAL IV STA (00:39)
[2024-04-07 02:37] LABS: Appearance Urine Clear (Clear); Bacteria Urine Automated None Seen (None Seen); Bilirubin Urine Negative (Negative); Blood Urine Negative (Negative); Cast Urine Automated 0-2 /lpf (0-2); Color Urine Yellow; Epithelial Cell Urine Auto 0-2 /hpf (0-2); Glucose Urine UA Negative (Negative); Ketones Urine Trace (Negative); Leukocyte Esterase Urine Trace (Negative); Nitrite Urine Negative (Negative); Protein Urine Trace (Negative); RBC Urine Automated 0-2 /hpf (0-2); Specific Gravity Urine 1.022 (1.000-1.030); Urobilinogen Urine Negative (Negative); WBC Urine Automated 0-5 /hpf (0-5)
[2024-04-07 02:54] LABS: Amphetamines+Metham, Urine Neg (Neg); Barbiturates, Urine Neg (Neg); Benzodiazepine, Urine Pos (Neg); Cocaine, Urine Neg (Neg); Fentanyl, Urine Neg (Neg); MDMA (Ecstacy), Urine Neg (Neg); Marijuana, Urine Pos (Neg); Methadone, Urine Neg (Neg); Opiate, Urine Neg (Neg); Phencyclidine, Urine Neg (Neg)
[2024-04-07 04:57] LABS: Basophils # (auto) 0.06 K/uL (0.00-0.20); Basophils % (auto) 1.1 %; Eosinophils # (auto) 0.05 K/uL (0.00-0.50); Eosinophils % (auto) 0.9 %; Hematocrit (blood only) 37.4 % (42.0-52.0); Hemoglobin 13.2 g/dl (14.0-18.0); Immature Granulocytes # (auto) 0.02 K/uL (0.01-0.20); Immature Granulocytes % (auto) 0.4 %; Lymphocytes # (auto) 0.94 K/uL (1.20-3.40); Lymphocytes % (auto) 17.2 %; Mean Corpuscular Hemoglobin 29.5 pg (25.0-34.0); Mean Corpuscular Hgb Conc 35.3 g/dL (32.0-36.0); Mean Corpuscular Volume 83.7 fL (80.0-100.0); Mean Platelet Volume 9.2 fL (9.4-12.4); Monocytes # (auto) 0.52 K/uL (0.11-0.59); Monocytes % (auto) 9.5 %; Neutrophils # (auto) 3.87 K/uL (1.40-6.50); Neutrophils % (auto) 70.9 %; Platelet Count 243 K/uL (130-400); RDW Coefficient of Variation 13.2 % (11.5-14.5); Red Blood Count 4.47 M/uL (4.70-6.10); White Blood Count 5.46 K/ul (4.8-10.8)
[2024-04-07 05:14] LABS: BUN Creatinine Ratio 19.4 (10-20); Calcium 9.4 mg/dl (8.6-10.3); Creatinine Clr Calc Pharmacy 66.2 ml/min; Est GFR (African American) 96.7 ml/min; Est GFR (Non-African American) 83.5 ml/min; Potassium 3.6 mmol/L (3.5-5.1)
--- NOTE | 2024-04-07 06:00 | Billing Data ---
Date of Service April 07, 2024 Coding Level of Care Code 58591 INT INP/OBS CARE
--- NOTE | 2024-04-07 07:36 | XRay Report ---
XR chest 1V portable CLINICAL HISTORY: SOB/COPD COMPARISON STUDY: Chest radiograph and chest CT November 14, 2023. FINDINGS: Right shoulder arthroplasty and median sternotomy wires are noted. There is a prosthetic ca rdiac valve. Electronic device projects over the left chest. There is underlying emphysema. No pneumo thorax or pleural effusion is present. Cardiomediastinal silhouette is normal. IMPRESSION: No acute cardiopulmonary findings. Emphysema. ACT 112: Negative or not required by law. Electronically signed by: Ghulam Franco M.D. 04/07/2024 7:35 AM
[2024-04-07] MEDS: ATORVASTATIN 40 MG TAB PO SCH (08:56)
[2024-04-07] MEDS: CALCIUM 600MG + VIT D 400 IU TAB PO SCH (08:57)
[2024-04-07] MEDS: carvediloL 25 MG TAB PO SCH (08:57)
[2024-04-07] MEDS: CHOLECALCIFEROL 25 MCG (1000 UNITS) TAB PO SCH (08:58)
[2024-04-07] MEDS: CLOPIDOGREL BISULFATE 75 MG TAB PO SCH (08:58)
[2024-04-07] MEDS: FERROUS SULFATE 325 MG TAB PO SCH (08:59)
[2024-04-07] MEDS: FAMOTIDINE 20 MG TAB PO SCH (08:59)
--- NOTE | 2024-04-07 08:59 | Electrocardiogram Report ---
Test Reason : Blood Pressure : */* mmHG Vent. Rate : 122 BPM Atrial Rate : 122 BPM P-R Int : 140 ms QRS Dur : 120 ms QT Int : 342 ms P-R-T Axes : 16 -77 79 degrees QTcB Int : 487 ms Sinus tachycardia Left anterior fascicular block Right bundle branch block Abnormal ECG When compared with ECG of 14-Nov-2023 18:50, Vent. rate has increased by 69 bpm Confirmed by Frandy Dominguez ([id number]) on 04/07/2024 8:59:25 AM Referred By: Confirmed By: Frandy Dominguez
[2024-04-07] MEDS ORDERED: THEOPHYLLINE 400 MG EXTENDED REL TAB PO SCH (09:00)
[2024-04-07] MEDS ORDERED: SERTRALINE HCL 100 MG TABLET PO SCH (09:00)
[2024-04-07] MEDS: FLUTICASONE/VILANTEROL 200/25MCG 14 PUFFS/INHALER INH SCH (09:00)
[2024-04-07] MEDS ORDERED: CHLORTHALIDONE 25 MG TAB PO SCH (09:00)
[2024-04-07] MEDS: PANTOprazole 40 MG TAB PO SCH (09:01)
[2024-04-07] MEDS: FOLIC ACID 1 MG TAB PO SCH (09:01)
[2024-04-07] MEDS: UMECLIDINIUM BROMIDE 62.5MCG/BLISTER 7 PUFFS/INHALER INH SCH (09:02)
[2024-04-07 11:24] VITALS: TEMP 98.6
[2024-04-07] MEDS: ENOXAPARIN INJ 40 MG/0.4 ML SYR SQ SCH (11:53)
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
[2024-04-07] MEDS ORDERED: HALOPERIDOL LACTATE 5 MG/ML 1 ML VIAL IM PRN (14:32)
[2024-04-07] MEDS ORDERED: OLANZAPINE 2.5 MG TAB PO PRN (14:32)
[2024-04-07] MEDS ORDERED: LORazepam 2 MG/1 ML VIAL IM STA (14:37)
[2024-04-07] MEDS ORDERED: LORazepam 1 MG/1 ML SYR ED Inj Use IM PRN (14:54)
--- NOTE | 2024-04-07 15:51 | Hospitalist Progress Note ---
Date of Service April 07, 2024 Assessment & Plan (1) Manic episode: Plan: - Labs without cause for metabolic encephalopathy, CT Head without acute pathology -[address] Hoyt and Dr. Valdes in the ED - one to one, suicide precautions - psych consult olanzapine 10mg HS olanzapine 2.5mg BID agitation/psychosis Depakote DR 250mg BID Stop sertraline Bed search initiated Haldol 2.5mg IM or Ativan 1mg IM for psych emergency (2) COPD (chronic obstructive pulmonary disease): Plan: - s/p Duoneb on the ED; now on room air - no signs of acute exacerbation - Duo-neb prn - continue home inhalers - continue theophylline, check level (3) GERD (gastroesophageal reflux disease): Plan: - continue PPI (4) Hyperlipidemia: Plan: - continue statin, zetia (5) Hypertension: Plan: - continue carvedilol (6) BPH (benign prostatic hyperplasia): Plan: - continue tamsulosin (7) Dementia: Plan: - continue Rivastigmine (8) CAD (coronary artery disease): Plan: - continue plavix Plan Diet: Regular Code: Full VTE prophalsis: Lovenox Admission and Anticipated Discharge Date Admission Date: April 06, 2024 Supervising Physician Co-Signing Physician Notes Attending Physician Supervision Note: I independently interviewed and examined the patient and verified the siddiqui history and physical, reviewed labs and image studies and agree with findings and care plan noted above. Manic episode - Per family, the patient has not been sleeping for the past several days, is very anxious, paranoid and agitated, and making nonsensical statements. Not taking meds and unable to care for himself. Received IV haldol in ED. -Seen by psych - no signs of loosened associations or behavioral disorganization on assessment today. However, still with rapid speech and circumstantial thought process. -One-to-one observation with suicide precautions -d/c sertraline -Start Depakote and olazapine. Prn meds for agitation ordered. -Bed search resumed. Chronic sleep disturbance - exacerbated by shoulder pain -No acute pain concerns. -Psych meds as above. Sleep apnea Not on cpap. In process of getting it arranged. Will monitor while inhouse. CAD/hypertension- Noted lower BP readings -Chlorthalidone put on hold in ED. -Will also cut carvedilol dose to 6.25 bid (home dose 25bid) -Continue atorvastatin, clopidogrel, Zetia COPD- No concern of acute exacerbation. Continue fluticasone/vilanterol, and umeclidinium bromide Continue albuterol HFA, Duonebs every 4 hours while awake and every 2 hours when necessary. Hold theophylline until level is returned BPH with LUTS- Continue tamsulosin Subjective Patient seen and evaluated at bedside this morning. No acute events overnight. Patient continues with pressured speech, states this is his 4th day without sleep. Cooperative. States this happened to him several years ago when he was a retirement with the [employer]. Does not recall ever being on any medication for his bipolar diagnosis. Just sertraline for anxiety/depression. No acute complaints this am. Review of Systems Review of Systems: reviewed, per HPI Physical Exam Physical Exam: Constitutional: well-appearing, no acute distress HEENT: NCAT, no conjunctival injection CV: regular rhythm, no murmur appreciated, extremities well-perfused, no LE edema Resp: CTABL, mild global expiratory wheeze, no increased work of breathing GI: soft, nondistended, nontender, BS normoactive MSK: no gross deformities appreciated Skin: warm, dry, no rash appreciated Neuro: alert, oriented, no focal neurologic deficit appreciated Psych: speech pressured, thought process intact and logical, cooperative Results & Data Results & Data Vital Signs (Past 12 Hours) Vital Signs Temp Pulse Pulse Resp BP BP Pulse Ox 04/07/24 14:30 53 L 27 H 91 04/07/24 14:24 58 L 34 H 95 04/07/24 14:00 67 18 109/79 95 04/07/24 13:54 26 H 92 04/07/24 13:00 62 20 117/56 L 94 04/07/24 12:00 72 22 111/55 L 97 04/07/24 12:00 111/55 L 04/07/24 11:42 75 19 95 04/07/24 11:33 64 16 96 04/07/24 11:00 37.0 C 74 17 101/75 95 04/07/24 10:51 67 22 04/07/24 10:45 69 22 04/07/24 10:24 71 24 04/07/24 10:12 72 23 04/07/24 10:00 74 20 04/07/24 09:54 83 23 04/07/24 09:11 36.5 C 79 16 137/79 95 04/07/24 08:30 76 15 97 04/07/24 08:27 78 15 98 04/07/24 08:15 73 25 H 97 04/07/24 08:03 77 21 98 04/07/24 07:57 73 16 96 04/07/24 07:48 71 22 97 04/07/24 07:24 73 22 97 04/07/24 07:15 73 21 96 04/07/24 07:00 113/78 04/07/24 07:00 113/78 04/07/24 07:00 81 22 96 04/07/24 06:21 81 24 97 04/07/24 06:18 75 20 98 04/07/24 06:06 61 21 96 04/07/24 06:02 165/71 H 04/07/24 05:51 71 21 97 04/07/24 05:42 67 21 97 04/07/24 05:30 69 22 97 04/07/24 05:21 70 21 97 04/07/24 05:01 127/83 04/07/24 05:01 127/83 04/07/24 05:01 127/83 04/07/24 05:00 69 23 127/83 95 04/07/24 04:57 69 21 96 04/07/24 04:48 70 24 96 04/07/24 04:36 70 43 H 97 04/07/24 04:27 84 16 97 04/07/24 04:15 67 19 97 04/07/24 04:00 70 17 91 04/07/24 04:00 94/67 L 04/07/24 03:53 04/07/24 03:51 72 21 96 O2 Del Method 04/07/24 14:30 04/07/24 14:24 04/07/24 14:00 Room Air 04/07/24 13:54 04/07/24 13:00 Room Air 04/07/24 12:00 Room Air 04/07/24 12:00 04/07/24 11:42 04/07/24 11:33 04/07/24 11:00 Room Air 04/07/24 10:51 04/07/24 10:45 04/07/24 10:24 04/07/24 10:12 04/07/24 10:00 04/07/24 09:54 04/07/24 09:11 Room Air 04/07/24 08:30 04/07/24 08:27 04/07/24 08:15 04/07/24 08:03 04/07/24 07:57 04/07/24 07:48 04/07/24 07:24 04/07/24 07:15 04/07/24 07:00 04/07/24 07:00 04/07/24 07:00 04/07/24 06:21 04/07/24 06:18 04/07/24 06:06 04/07/24 06:02 04/07/24 05:51 04/07/24 05:42 04/07/24 05:30 04/07/24 05:21 04/07/24 05:01 04/07/24 05:01 04/07/24 05:01 04/07/24 05:00 04/07/24 04:57 04/07/24 04:48 04/07/24 04:36 04/07/24 04:27 04/07/24 04:15 04/07/24 04:00 04/07/24 04:00 04/07/24 03:53 Nasal Cannula 04/07/24 03:51 Resident Activity Tracking Resident Involvement: Resident Care Provided Care Provided: Adult Hospital Medicine (2) COPD (chronic obstructive pulmonary disease) COPD type: emphysema Emphysema type: unspecified Qualified Code(s): J43.9 - Emphysema, unspecified
[2024-04-07] MEDS: carvediloL 6.25 MG TAB PO SCH (20:59)
[2024-04-07] MEDS: TAMSULOSIN HCL 0.4 MG CAP PO SCH (21:00)
[2024-04-07] MEDS: DIVALPROEX EXTENDED RELEASE 250 MG TABCR PO SCH (21:00)
[2024-04-07] MEDS: EZETIMIBE 10 MG TAB PO SCH (21:00)
[2024-04-07] MEDS: OLANZapine 10 MG TAB PO SCH (21:01)
[2024-04-08 05:24] LABS: Basophils # (auto) 0.07 K/uL (0.00-0.20); Basophils % (auto) 1.6 %; Eosinophils # (auto) 0.09 K/uL (0.00-0.50); Eosinophils % (auto) 2.1 %; Hemoglobin 13.1 g/dl (14.0-18.0); Immature Granulocytes # (auto) 0.01 K/uL (0.01-0.20); Immature Granulocytes % (auto) 0.2 %; Lymphocytes # (auto) 1.13 K/uL (1.20-3.40); Mean Corpuscular Hemoglobin 29.8 pg (25.0-34.0); Mean Corpuscular Hgb Conc 35.4 g/dL (32.0-36.0); Mean Corpuscular Volume 84.3 fL (80.0-100.0); Mean Platelet Volume 9.1 fL (9.4-12.4); Monocytes # (auto) 0.49 K/uL (0.11-0.59); Monocytes % (auto) 11.3 %; Neutrophils # (auto) 2.56 K/uL (1.40-6.50); Neutrophils % (auto) 58.8 %; Platelet Count 233 K/uL (130-400); RDW Coefficient of Variation 13.2 % (11.5-14.5); RDW Standard Deviation 41.1 fL (36.4-46.3); Red Blood Count 4.39 M/uL (4.70-6.10); White Blood Count 4.35 K/ul (4.8-10.8)
[2024-04-08 05:41] LABS: BUN Creatinine Ratio 24.4 (10-20); Calcium 9.3 mg/dl (8.6-10.3); Creatinine Clr Calc Pharmacy 68.4 ml/min; Est GFR (African American) 100.6 ml/min; Est GFR (Non-African American) 86.8 ml/min; Potassium 3.6 mmol/L (3.5-5.1)
--- NOTE | 2024-04-08 08:20 | Electrocardiogram Report ---
Test Reason : Blood Pressure : */* mmHG Vent. Rate : 59 BPM Atrial Rate : 59 BPM P-R Int : 166 ms QRS Dur : 122 ms QT Int : 468 ms P-R-T Axes : 73 -67 72 degrees QTcB Int : 463 ms Sinus bradycardia with frequent Premature ventricular complexes Left axis deviation Right bundle branch block Abnormal ECG When compared with ECG of 06-Apr-2024 20:19, Premature ventricular complexes are now Present Vent. rate has decreased by 63 bpm Confirmed by Frandy Dominguez ([id number]) on 04/08/2024 8:20:07 AM Referred By: REFERRED SELF Confirmed By: Frandy Dominguez
[2024-04-08 10:02] VITALS: RESP 21; O2SAT 94
--- NOTE | 2024-04-08 12:01 | Psychiatric Progress Note ---
Date of Service April 08, 2024 Impression / Recommendations Impression Diagnostically consistent with likely episode of hypomania, set off by recent medical issues contributing to stress and poor sleep. Encouragingly his symptoms improved rapidly with use of haldol in the ED and subsequently no signs of hypomania today after scheduled olanzapine and Depakote last night. He slept well, estimated between 6-8 hours, shows no symptoms of psychosis, denies any safety concerns (no SI nor HI), can speak insightfully and accurately about his medical conditions and treatments required, is medically stable and shows no symptoms today of hypomania (speech normal, no delusions, no grandiosity, no irritability) and is calm and cooperative. Therefore felt he doesn't require inpatient psychiatric hospitalization and can be discharged to home with outpatient level of care for follow-up. He is agreeable to continuing olanzapine and Depakote for mood stabilization and agrees with discontinuing sertraline. Acute risk of self-harm is low given denial of SI, future oriented and no longer with symptoms of hypomania. Overall, I spent a total of 45 minutes with this case including review of chart records, review of labwork, review of EKG QTc, direct evaluation of the patient at bedside, counseling the patient, discussion of the patient with the hospitalist provider, discussion with the psychiatric liason during clinical rounds, review of collateral information from the family and documentation in the electronic health record. (1) Manic episode: (2) Insomnia: (3) COPD (chronic obstructive pulmonary disease): (4) Bipolar affective disorder in remission: Plan -Safe for discharge from psychiatric standpoint -Recommend outpatient script for olanzapine 10mg HS and Depakote DR 250mg BID -Recommend outpatient labwork including: * Baseline labs of fasting glucose, fasting lipid profile, and weight if he remains on olanzapine with repeat weight in one month. Recommend repeat fasting glucose, HbA1c and fasting lipid profile every 12 weeks and then annually. If symptoms arise recommend checking BP, EKG, prolactin level as clinically indicated or relevant. * Depakote level in 3-7 days. Recommend repeat CBC with diff, and LFTs at one month. Then CBC with diff, Depakote level, and LFTs annually or anytime symptoms arise. -Sertraline 200mg daily discontinued, if used in the future recommend only when he is also on a mood stabilizer medication -Reviewed instructions to return the emergency department or utilize crisis services or 911 if his sleep worsens or he develops symptoms of hypomania/fran or any other symptoms of feeling unable to remain safe or failing to care for his medical needs, which he agrees to do Interval History Identifying Information 68 yo man with history of BPAD vs MDD, chronic shoulder pain, COPD, and possible neurocognitive disorder admitted medically for COPD exacerbation with symptoms concerning for acute manic episode contributing to lack of self care on a 302 commitment. Psychiatry consulted as he is on a 302 status, recommendations for insomnia/mood. Chief Complaint "I feel really good, I got some sleep finally last night". Subjective Subjective Patient was seen & assessed and interval progress reviewed. Today Wild reports good mood and is pleased to have slept well last night. He denies any side effects from the medication. He feels comfortable discussing request for outpatient psychiatry with [facility] after discharge to ensure he continues to have close follow-up for his medications and mood symptoms. Agrees to follow up with [place] doctor and grants permission to share medical notes from this hospital so that we can fax this. He would like to go home and feels safe doing this. Reviewed that he has access to his medical supplies including oxygen at home and is "absolutely" agreeable to using his oxygen and other respiratory medications as he typically would. He agrees that his lack of sleep likely set off an episode of hypomania and is glad to be sleeping better and feeling like himself again. Physical Exam Psychiatric Orientation: alert and oriented x 3 Apperance: appropriately dressed and appropriately groomed Eye Contact: good eye contact Motor Behavior: no abnormal motor movements Speech: normal rate/rhythm/volume of speech; no pressured speech Affect: euthymic affect Mood: no depressed mood, no anxious mood and no irritable mood Thought Process: goal directed thought process Thought Content: reality based without delusions Suicidal Thoughts: denies suicidal thoughts Homicidal Thoughts: denies homicidal thoughts Hallucinations: no auditory hallucinations and no visual hallucinations Cognition: recent memory grossly intact, remote memory grossly intact, attention grossly intact and language grossly intact Estimated Intelligence: consistent with education level Insight: + fair insight Judgment: + fair judgement Vital Signs (Past 24 Hours) Last Vital Signs Temp 37.0 C 04/07/24 11:00 Pulse 77 04/08/24 09:59 Resp 21 04/08/24 09:59 BP 119/66 04/08/24 09:59 Pulse Ox 94 04/08/24 09:59 O2 Del Method Room Air 04/08/24 09:59 O2 Flow Rate 2 04/07/24 02:32 Results & Data ([facility]) Laboratory Results Laboratory Results - last 24 hr 04/08/24 05:14 WBC 4.35 L RBC 4.39 L Hgb 13.1 L Hct 37.0 L MCV 84.3 MCH 29.8 MCHC 35.4 RDW Std Deviation 41.1 RDW Coeff of Rosario 13.2 Plt Count 233 MPV 9.1 L Immature Gran % (Auto) 0.2 Neut % (Auto) 58.8 Lymph % (Auto) 26.0 Garfield % (Auto) 11.3 Eos % (Auto) 2.1 Baso % (Auto) 1.6 Neut # (Auto) 2.56 Lymph # (Auto) 1.13 L Garfield # (Auto) 0.49 Eos # (Auto) 0.09 Baso # (Auto) 0.07 Immature Gran # (Auto) 0.01 Sodium 139 Potassium 3.6 Chloride 103 Carbon Dioxide 28 Anion Gap 8 BUN 22 Creatinine 0.90 Est Cr Clr Drug Dosing 68.4 Est GFR ( Amer) 100.6 Est GFR (Non-Af Amer) 86.8 BUN/Creatinine Ratio 24.4 H Glucose 95 Calcium 9.3 Current Inpatient Medications Current Inpatient Medications: Current Inpatient Medications Albuterol (Albuterol Hfa 8 Gm Inhaler) 2 puffs INH Q6H PRN PRN Reason: Shortness Of Breath Stop: 05/06/24 23:44 Albuterol (Albut/Ipratrop 3mg/0.5mg Neb 3 Ml Vial) 3 ml NEB Q6R PRN; Protocol PRN Reason: Wheezing Stop: 05/06/24 23:44 Atorvastatin Calcium (Atorvastatin 40 Mg Tab) 80 mg PO QAM [facility] Stop: 05/07/24 08:59 Last Admin: 04/08/24 09:45 Dose: 80 mg Calcium/Vitamin D (Calcium 600mg + Vit D 400 Iu Tab) 1 tab PO DAILY [facility] Stop: 05/07/24 08:59 Last Admin: 04/08/24 09:47 Dose: 1 tab Carvedilol (Carvedilol 6.25 Mg Tab) 6.25 mg PO BID [facility] Stop: 05/07/24 20:59 Last Admin: 04/08/24 09:57 Dose: 6.25 mg Clobetasol Propionate (Clobetasol Propionate 0.05% Cream 15 Gm Tube) 1 appln TOP DAILY PRN PRN Reason: Rash Stop: 05/06/24 23:44 Clopidogrel Bisulfate (Clopidogrel Bisulfate 75 Mg Tab) 75 mg PO QAM J[facility]Y Stop: 05/07/24 08:59 Last Admin: 04/08/24 09:46 Dose: 75 mg Divalproex Sodium (Divalproex Extended Release 250 Mg Tabcr) 250 mg PO BID J[facility] Stop: 05/07/24 20:59 Last Admin: 04/08/24 09:46 Dose: 250 mg Ezetimibe (Ezetimibe 10 Mg Tab) 10 mg PO HS JERRY Stop: 05/07/24 20:59 Last Admin: 04/07/24 21:00 Dose: 10 mg Enoxaparin Sodium (Enoxaparin Inj 40 Mg/0.4 Ml Syr) 40 mg SQ Q24H JERRY Stop: 05/07/24 11:29 Last Admin: 04/07/24 11:53 Dose: 40 mg Famotidine (Famotidine 20 Mg Tab) 20 mg PO DAILY J[facility] Stop: 05/07/24 08:59 Last Admin: 04/08/24 09:46 Dose: 20 mg Ferrous Sulfate (Ferrous Sulfate 325 Mg Tab) 325 mg PO Q48H JERRY Stop: 05/07/24 08:59 Last Admin: 04/07/24 08:59 Dose: 325 mg Fluticasone/Vilanterol (Fluticasone/Vilanterol 200/25mcg 14 Puffs/Inhaler) 1 puffs INH DAILY JERRY Stop: 05/07/24 08:59 Last Admin: 04/08/24 09:58 Dose: 1 puffs Folic Acid (Folic Acid 1 Mg Tab) 1 mg PO DAILY [facility] Stop: 05/07/24 08:59 Last Admin: 04/08/24 09:47 Dose: 1 mg Haloperidol Lactate (Haloperidol Lactate 5 Mg/Ml 1 Ml Vial) 2.5 mg IM Q8H PRN PRN Reason: Agitation/psychosis - 2nd line Stop: 05/07/24 14:31 Lorazepam (Lorazepam 1 Mg/1 Ml Syr Ed Inj Use) 1 mg IM ONE PRN PRN Reason: AGITATION - 2ND LINE Stop: 05/07/24 14:53 Miscellaneous (Order Awaiting Action: Rivastigmine 4.6 Mg/24 Hour Patch 24 Hour) 1 each N/A QS JERRY Stop: 05/07/24 07:59 Last Admin: 04/08/24 09:42 Dose: Not Given Olanzapine (Olanzapine 10 Mg Tab) 10 mg PO HS [facility] Stop: 05/07/24 20:59 Last Admin: 04/07/24 21:01 Dose: 10 mg Olanzapine (Olanzapine 2.5 Mg Tab) 2.5 mg PO BID PRN PRN Reason: Agitation/psychosis - 1st line Stop: 05/07/24 20:59 Pantoprazole Sodium (Pantoprazole 40 Mg Tab) 40 mg PO DAILY JERRY Stop: 05/07/24 08:59 Last Admin: 04/08/24 09:47 Dose: 40 mg Tamsulosin HCl (Tamsulosin Hcl 0.4 Mg Cap) 0.4 mg PO HS [facility] Stop: 05/07/24 20:59 Last Admin: 04/07/24 21:00 Dose: 0.4 mg Umeclidinium Delevan (Umeclidinium Delevan 62.5mcg/Blister 7 Puffs/Inhaler) 1 puffs INH QAM [facility] Stop: 05/07/24 08:59 Last Admin: 04/08/24 09:58 Dose: 1 puffs Vitamin D (Cholecalciferol 25 Mcg (1000 Units) Tab) 50 mcg PO DAILY JERRY Stop: 05/07/24 08:59 Last Admin: 04/08/24 09:45 Dose: 50 mcg (3) COPD (chronic obstructive pulmonary disease) COPD type: emphysema Emphysema type: unspecified Qualified Code(s): J43.9 - Emphysema, unspecified
--- NOTE | 2024-04-08 13:33 | Discharge Summary ---
Date of Service April 08, 2024 Admission HPI Per Admitting Provider 68 year old male with a past medical history of COPD, bipolar disorder, dementia presenting with concern for manic episode. History obtained per ED physician and chart review, limited history from patient. Attempted to call , no answer. Came with with concern for manic episode. Per family has not been sleeping over the past couple of days. Has a history of bipolar disorder and has not been taking medications. Was seen in the ED 04/05 with concern for lack of support at home, refused resources and d/c home. When I elevated the patient, he stated that he was feeling well. Hoping to get some sleep. No complaints. Unsure as to why he was here. ED Course Significant for: Tachycardiac/Hypertensive. Reportedly audible wheezing s/p DuoNeb with improvement. Was agitated in the ED and received 5mg Haldol x 2. Admission Exam Per Admitting Provider Constitutional: well-appearing, no acute distress HEENT: NCAT, no conjunctival injection CV: regular rhythm, no murmur appreciated, extremities well-perfused, no LE edema Resp: + scattered end expiratory wheezing, no increased work of breathing GI: soft, nondistended, nontender MSK: no gross deformities appreciated Skin: warm, dry, no rash appreciated Neuro: alert, oriented, no focal neurologic deficit appreciated Principal Diagnosis Acute fran Discharge Exam Constitutional: well-appearing, no acute distress HEENT: NCAT, no conjunctival injection CV: regular rhythm, no murmur appreciated, extremities well-perfused, no LE edema Resp: CTABL, mild global expiratory wheeze, no increased work of breathing GI: soft, nondistended, nontender, BS normoactive MSK: no gross deformities appreciated Skin: warm, dry, no rash appreciated Neuro: alert, oriented, no focal neurologic deficit appreciated Psych: speech pressured, thought process intact and logical, cooperative Discharge Data Allergies Allergy/AdvReac Type Severity Reaction Status Date / Time gluten Allergy Severe celiac Verified 03/15/24 09:53 disease wheat Allergy Severe celiac Verified 03/15/24 09:53 disease NSAIDS (Non-Steroidal Allergy Intermediate Hives Verified 03/15/24 09:53 Anti-Inflamma aspirin Allergy Mild RASH,HIVES Verified 03/15/24 09:53 lisinopril Allergy Mild Hives Verified 03/15/24 09:53 naproxen [From Naprosyn] Allergy Mild Hives Verified 03/15/24 09:53 Consultations 04/06/24 22:35 ED Decision to Admit Stat 04/07/24 08:21 Consult Psychiatry Routine Ordered Studies 04/06/24 20:08 CT head/brain wo con Stat Hospital Course (1) Manic episode: (2) COPD (chronic obstructive pulmonary disease): (3) GERD (gastroesophageal reflux disease): - continue PPI (4) Hyperlipidemia: - continue statin, zetia (5) Hypertension: (6) BPH (benign prostatic hyperplasia): (7) Dementia: (8) CAD (coronary artery disease): Manic episode - ED work up negative for metabolic encephalopathy. Per family, the patient has not been sleeping for the past several days, is very anxious, paranoid and agitated, and making nonsensical statements. Not taking meds and unable to care for himself. Received IV haldol in ED. Placed on 302 on admission but cleared by psych to return home. -d/neda sertraline -Started Depakote 250mg bid and olazapine 10mgs hs- continue. -Will need lab monitoring - fasting glucose, lipid profile on hospital f/u visit and weight check and recheck in one month. In 12 wks - recheck fasting glucose, A1c, lipid panel and then annually. -BP, EKG, prolactin level checks as clinically relevant -Depakote level in 3-7 days. CBC with diff, LFT in 1 mth and then annually. Chronic sleep disturbance - exacerbated by shoulder pain -No acute pain concerns. -Psych meds as above. Sleep apnea Not on cpap. In process of getting it arranged. Will monitor while inhouse. CAD/hypertension- Noted lower BP readings -Chlorthalidone put on hold in ED - BP stayed low - to continue to hold on discharge until seen by pcp. Will monitor BP readings at home. -Also decreased carvedilol dose to 6.25 bid (home dose 25bid) -Continue atorvastatin, clopidogrel, Zetia COPD- No concern of acute exacerbation. Continue fluticasone/vilanterol, and umeclidinium bromide Continue albuterol HFA, Theophylline level checked - level pending. Held theophylline while hospitalized. Resumed on discharge. BPH with LUTS/Dementia- Continue tamsulosin, reivastigmine Total Time Total Time Spent Total Time Spent (In Minutes): see attending documentation Discharge Plan Discharge Items Patient Disposition: Home - Self-Care Reason For Visit: MANIC EPISODE, COPD Discharge Diagnosis: Acute manic episode Activity: Resume your previous activity Activity Comment: as tolerated Non-emergency contact: Primary Care Provider and Psychiatrist Call non-emergency contact if: you have any medication questions and your symptoms worsen Follow-up/Referrals: Fanny Clark PA-C [Primary Care Provider] - Diet: Heart Healthy Addtl Attending Provider Instructions: You were admitted to the hospital because you hadn't slept for days. You were treated with medications to help control your manic symptoms and allow you to sleep. You were seen by psychiatry on the day of discharge and it is felt that you are safe to return home and [facility]. It is very important that you take your new medications as prescribed. You should stop taking sertraline as this can trigger manic episodes. A discharge summary will be sent to your primary care physician to ensure continuity of care. Please bring this discharge summary with you to your next office appointment so that your provider can review it at that time. Follow-up appointments: Make a follow-up appointment with your PCP within the next week. It is very important that you follow up with them shortly after discharge from the hospital. Keep all your follow-up appointments as already scheduled. If you cannot make an appointment, notify your provider. Medications: Your medication list has been reviewed and reconciled upon discharge to ensure accuracy and continuity of care. An updated list of all your medications is included with your hospital discharge paperwork. Please review this list closely, and make note of any changes. We sent a new medication called olanzapine (Zyprexa) to your pharmacy. Take olanzapine (10mg) one tablet every night. We sent a new medication called divalproex (Depakote) to your pharmacy. Take divalproex (250mg) one tablet twice daily. DOSE CHANGE We sent a lower dose of your medication called carvedilol to your pharmacy. Take carvedilol (6.25mg) one tablet twice daily. If you have any issues filling these prescriptions, please call [phone] and ask to leave a message for Dr. Ryan Winchester. Take your medications as instructed; do not skip a dose of your medicines. Make sure all of your doctors know every medicine you are taking (including [id number] medicines, vitamins, and supplements). Call your primary care provider before taking any new medicines (including [id number] medicines, vitamins, and supplements), because some of these may interact with your current medications, or may make your symptoms worse. Tell your primary care provider if you cannot afford your medications. CONTACT YOUR PRIMARY CARE PROVIDER if you experience any of the following: Return of you inability to sleep If your family has any concerns about your behavior Difficulty following your treatment plan, or difficulty taking medications CALL 911 OR GO TO THE EMERGENCY DEPARTMENT if you experience any of the following: Feelings of self-harm or feelings that you may harm others Sudden, severe abdominal pain or nausea/vomiting Severe chest pain, or chest pain that radiates (moves) to your jaw or arm Sudden, severe shortness of breath or difficulty breathing Thank you for allowing us to participate in your care. Pending Studies at Discharge: No Stand-Alone Forms: My [facility] Medications and DC Order Prescriptions: New carvedilol 6.25 mg Tablet 6.25 mg PO BID Qty: 60 0RF olanzapine 10 mg Tablet 10 mg PO HS Qty: 30 0RF divalproex 250 mg Tablet Extended Release 24 Hr 250 mg PO BID Qty: 60 0RF Continued tiotropium bromide [Spiriva with HandiHaler] 18 mcg Capsule, W/Inhalation Device 1 cap INHALATION QAM 30 Days Qty: 30 ketotifen fumarate 0.025 % (0.035 %) drops 1 drp ophthalmic (eye) BID PRN (Reason: Eye Irritation) Rx Instructions: administer at least 8 hours apart teriparatide 20 mcg/dose (620mcg/2.48mL) pen injector 20 mcg subcut DAILY calcium carb,[id number] [id number] mg-unit-mg tablet 1 tab PO BID carbamide peroxide 6.5 % drops 5 drp otic (ear) DAILY Rx Instructions: Use for up to 4 days for ear wax cholecalciferol (vitamin D3) 25 mcg (1,000 unit) tablet 50 mcg PO DAILY famotidine 20 mg tablet 20 mg PO DAILY pantoprazole 40 mg tablet,delayed release (DR/EC) 40 mg PO DAILY theophylline 400 mg Tablet Extended Release 24 Hr 400 mg PO BID albuterol sulfate [Proventil HFA] 90 mcg/actuation Hfa Aerosol Inhaler 2 puff INHALATION Q6H PRN (Reason: Shortness Of Breath) atorvastatin 80 mg Tablet 80 mg PO QAM ferrous sulfate 325 mg (65 mg iron) tablet 325 mg PO Q OTHER DAY clopidogrel [Plavix] 75 mg Tablet 75 mg PO QAM ketoconazole 2 % Shampoo TOPICAL Q OTHER DAY tamsulosin 0.4 mg Capsule 0.4 mg PO HS fluticasone propion-salmeterol 500-50 mcg/dose Blister With Device 1 inh INHALATION BID Ensure Liquid BID clobetasol 0.05 % Cream 1 applic TOPICAL DAILY PRN (Reason: Rash) folic acid 1 mg Tablet 1 mg PO DAILY ezetimibe [Zetia] 10 mg Tablet 10 mg PO HS rivastigmine 4.6 mg/24 hour Patch 24 Hour 1 patch TRANSDERMAL DAILY prednisone 10 mg tablet 5 mg PO DIRECTED PRN (Reason: exac of COPD) Patient Comments: takes a taper dose starting at 20 mg x 3 days,15 mg x 3 days, 10 mg x 3 days, then 5 mg x 3 days then off 12 days and then start over Rx Instructions: 11/14/23 In process to be mailed out per [place]:"start at 20mg go down by 5mg every 3 days" Held chlorthalidone 25 mg Tablet 25 mg PO DAILY Hold Instructions: Resume on 04/15/24. Hold until seen by primary care provider since your blood pressure has been running low while hospitalized Discontinued sertraline [Zoloft] 100 mg Tablet 200 mg PO QAM 90 Days Qty: 90 carvedilol 25 mg Tablet 25 mg PO BID Discharge Orders: Discharge Order (Routine); Ordered 04/08/24 Ordered By: Ryan Winchester Admission Data Admit Date/Time: 04/06/24 23:08 Attending Provider: Chela Carpio Admit Provider: Terra Israel Primary Care Provider: Fanny Clark Other Providers: Wagner Pineda; [facility]; Lisbet Leavitt; Wild Dickerson; Mike Dent Jr; Renata Whately; Ronda Coyle; Jeffrey Holman Other Interventions: Discharge Summary Assessment (RN) Last Done: 04/08/24 13:52 Supervising Physician Co-Signing Physician Notes Attending Physician Supervision Note: I independently interviewed and examined the patient and verified the siddiqui history and physical, reviewed labs and image studies and agree with findings and care plan noted above. Olanzapine 2.5mg bid was sent to pharmacy on error. I spoke to pharmacist and cancelled it. Patient' had not picked it up. Also spoke to about holding Chlorthalidine until seen by pcp. To monitor BP at home daily until then. Resident Activity Tracking Resident Involvement: Resident Care Provided Care Provided: Adult Hospital Medicine
[2024-04-08 13:53] VITALS: BP 122/76; PULSE 68
[2024-04-09 14:32] LABS: 7-Aminoclonaz, Confirm NEGATIVE ng/mL (<25); Hydro-Alp Ur, GC/MS NEGATIVE ng/mL (<25); Hydroxyethylflurazepam, Conf NEGATIVE ng/mL (<50); Hydroxymidazolam Ur, GC/MS NEGATIVE ng/mL (<50); Hydroxytriazolam NEGATIVE ng/mL (<50); Lorazepam, Ur GC/MS NEGATIVE ng/mL (<50); Marijuana Quant, GCMS Urine 579 ng/mL (<5); Nordiazepam, Confirm NEGATIVE ng/mL (<50); Oxazepam Ur, GC/MS NEGATIVE ng/mL (<50); Temazepam, Confirm NEGATIVE ng/mL (<50)
== END 2024-04-08 13:52 | disposition home or self-care (01) ==
LOC: ED 19:40 → EDINP 19:40 → SUATTDRO 23:08 → EDINP 23:45

== ENCOUNTER 2024-05-14 03:37 | Observation (INO) ==
--- NOTE | 2024-05-14 03:51 | Emergency Department Note ---
ED Visit Note The patient was seen and examined with bonny. I performed a substantive portion of all aspects of the medical decision making and agree with the h istory, physical and findings. Please see the note for disposition and details. . .
--- NOTE | 2024-05-14 03:54 | Emergency Department Note ---
History of Present Illness General Chief complaint: Respiratory Problems Stated complaint: COPD EXACERPATION Time Seen by Provider: 05/14/24 03:46 History of Present Illness Maximum Pain Intensity: 5 This 68-year-old male with severe COPD who was seen here the other night presents to the ER for worsening symptoms. Patient states he now has productive cough with yellow sputum. Patient states he feels too winded and is short of breath now with walking. Patient denies fever, abdominal pain, leg pain or swelling, current tobacco use. Home Medications Medication Instructions Recorded Confirmed Type tiotropium bromide 18 mcg capsule 1 cap inhalation QAM 30 days #30 02/03/18 04/25/24 History with inhalation device (Spiriva caps with HandiHaler) albuterol sulfate 90 mcg/actuation 2 puff inhalation Q6H PRN 01/16/19 04/25/24 History aerosol inhaler (Proventil HFA) Shortness Of Breath atorvastatin 80 mg tablet 80 mg PO QAM 01/16/19 04/25/24 History theophylline 400 mg 400 mg PO BID 01/16/19 04/25/24 History tablet,extended release 24 hr ferrous sulfate 325 mg (65 mg 325 mg PO Q OTHER DAY 12/11/20 04/25/24 History iron) tablet clopidogrel 75 mg tablet (Plavix) 75 mg PO QAM 04/08/22 04/25/24 History clobetasol 0.05 % topical cream 1 applic topical DAILY PRN Rash 11/14/23 04/25/24 History ezetimibe 10 mg tablet (Zetia) 10 mg PO HS 11/14/23 04/25/24 History folic acid 1 mg tablet 1 mg PO DAILY 11/14/23 04/25/24 History rivastigmine 4.6 mg/24 hour 1 patch transdermal DAILY 11/14/23 04/25/24 History transdermal patch ketotifen fumarate 0.025 % (0.035 1 drp ophthalmic (eye) BID PRN Eye 12/13/23 04/25/24 History %) eye drops Irritation chlorthalidone 25 mg tablet 25 mg PO QPM 01/03/24 04/25/24 History calcium carb,cit 315 mg-vitamin D3 1 tab PO BID 02/28/24 04/25/24 History 250 unit-phytosterols 200 mg tablet carbamide peroxide 6.5 % ear drops 5 drp otic (ear) DAILY ear was 02/28/24 04/25/24 History cholecalciferol (vitamin D3) 25 50 mcg PO DAILY 02/28/24 04/25/24 History mcg (1,000 unit) tablet famotidine 20 mg tablet 20 mg PO QAM 02/28/24 04/25/24 History pantoprazole 40 mg tablet,delayed 40 mg PO QAM 02/28/24 04/25/24 History release teriparatide 20 mcg/dose (620 20 mcg subcut QAM 02/28/24 04/25/24 History mcg/2.48 mL) subcutaneous pen injector prednisone 10 mg tablet 5 mg PO DIRECTED PRN exac of 03/15/24 04/25/24 History COPD fluticasone 500 mcg-salmeterol 50 1 inh inhalation BID 04/06/24 04/25/24 History mcg/dose blistr powdr for inhalation food supplemt, lactose-reduced 1 ea PO QAM 04/06/24 04/25/24 History (Ensure oral liquid) ketoconazole 2 % shampoo 1 applic topical Q OTHER DAY 04/06/24 04/25/24 History tamsulosin 0.4 mg capsule 0.4 mg PO HS 04/06/24 04/25/24 History carvedilol 6.25 mg tablet 6.25 mg PO BID #60 tabs 04/08/24 04/25/24 Rx divalproex 250 mg tablet,extended 250 mg PO BID #60 tabs 04/08/24 04/25/24 Rx release 24 hr olanzapine 10 mg tablet 10 mg PO HS #30 tabs 04/08/24 04/25/24 Rx Allergies Allergy/AdvReac Type Severity Reaction Status Date / Time gluten Allergy Severe celiac Verified 04/25/24 08:04 disease wheat Allergy Severe celiac Verified 04/25/24 08:04 disease NSAIDS (Non-Steroidal Allergy Intermediate Hives Verified 04/25/24 08:04 Anti-Inflamma aspirin Allergy Mild RASH,HIVES Verified 04/25/24 08:04 lisinopril Allergy Mild Hives Verified 04/25/24 08:04 naproxen [From Naprosyn] Allergy Mild Hives Verified 04/25/24 08:04 Past Med/Surg History Problem List (Updated 05/14/24 @ 03:54 by Shayna Gallo PA-C) Acute exacerbation of chronic obstructive pulmonary disease (Acute) Nausea and vomiting Encounter for pre-operative examination Change in bowel habits Bipolar affective disorder in remission RBBB (right bundle branch block with left anterior fascicular block) CAD (coronary artery disease) Domestic problems (Acute) Anxiety (Acute) COPD (chronic obstructive pulmonary disease) Osteoporosis History of colon polyps Gastritis Elevated troponin (Acute) Acute hypokalemia (Acute) Intractable nausea and vomiting (Acute) S/P trigger finger release Dementia stage 3 Trigger finger, right ring finger Trigger thumb of right hand AMS (altered mental status) Encounter for pre-operative examination COVID (Acute) Other instability, left elbow Rotator cuff tear, left Celiac disease Encounter for pre-operative examination Abnormal EKG (Acute) Hypercalcemia (Acute) Vomiting (Acute) Acute duodenitis (Acute) COPD with acute exacerbation (Acute) Restless leg Anemia (Acute) Chronic pain PATTON (dyspnea on exertion) Status post reverse arthroplasty of right shoulder (~04/2020) BPH (benign prostatic hyperplasia) GERD (gastroesophageal reflux disease) Well controlled and stable Hypertension Hyperlipidemia Hx of venous thrombosis and embolism (Acute) Bipolar disorder, unspecified (Acute) Weight loss Pulmonary nodule Hemostasis disorder (Acute) COPD (chronic obstructive pulmonary disease) (Acute) COPD (chronic obstructive pulmonary disease) (Chronic) Heart disease (Chronic) Severe recurrent major depression without psychotic features (Acute 04/19/11) Acute exacerbation of chronic obstructive airways disease (Acute 02/07/11) Generalized anxiety disorder (Chronic 03/31/11) Medical History Pulmonary nodule 1 cm or greater in diameter Restless leg RBBB (right bundle branch block with left anterior fascicular block) Heart disease GERD (gastroesophageal reflux disease) PATTON (dyspnea on exertion) CAD (coronary artery disease) Hx of colonic polyps Dementia per chart, pt. was able to complete PAT interview with ease Osteoporosis Bipolar affective disorder in remission Hx of deep venous thrombosis (2018) rightT ARM 2018 (TREATED WITH ELIQUIS)- on AC x 6 months- then d/c'ed- no issues since. Did follow with heme- no known clotting issues - felt secondary to A-port- A port removed. Hx pulmonary embolism (2009) Manic episode (03/2024) reports manic depressive at beginning of march, resolved Insomnia On anticoagulant therapy plavix daily Hx of non-ST elevation myocardial infarction (NSTEMI) (2019) "debateable" History of COVID-19 (2021) diagnosed 02/04/22 via home test only--cough, fatigue, muscle aches, runny nose--no symptoms now Celiac disease On home oxygen therapy 2L prn PVD (peripheral vascular disease) S/p angioplasties. On Plavix- cannot tolerate ASA Anxiety and depression Immunoglobulin G deficiency infusions monthly at [facility] Hearing deficit b/l perez's Aortic valve defect Had AVR secondary to AR per patient "HAS MINIMAL LEAKING FROM PROSTHETIC COW AORTIC VALVE" Lung nodules Following with pulm Sleep apnea cpap with 2L at Chronic obstructive pulmonary disease stage 4 COPD, on prednisone maintenance program, currently going thru eval for lung transplant list Asthma Well controlled - inhalers daily and prn--nebulizer prn Surgical History Hx of colonoscopy with polypectomy Status post trigger finger release 05/2023 @ [facility] [place]--right thumb/ring finger History of transesophageal echocardiography (MELISSA) (~08/16/19) History of cardiac cath (~05/15/19) @ [facility] with Dr. Ji, no stents, no RI, History of vascular access device infuasport placed and removed in past for IGG History of umbilical hernia repair History of right inguinal hernia repair History of cholecystectomy History of esophagogastroduodenoscopy (EGD) History of phacoemulsification of cataract of both eyes with intraocular lens implantation History of angioplasty LEs and hand History of aortic valve replacement (2009) 2009 @ [facility] -follows with Dr. Ji in [place] History of bronchoscopy Family History Father Family history of diabetes mellitus Other No family history of adverse response to anesthesia Social History Smoking Status: Former smoker Tobacco Type: Cigarettes Second Hand Exposure: No; Do You Dip or Chew Tobacco: No; Hx Alcohol Use: No Hx Substance Use: No Preferred Language: Qatari Communication Ability: Effective Busgirl Required: No Beliefs That Will Affect Care: Bahai Bahai Beliefs: yazidism marital status: Current Living Situation: Spouse Current Living Situation Comment: Lives with and son Feels Safe at Home: Yes Gender Identity: Male Assistive Devices: Cane, Denture - Upper, Denture - Lower, Hearing Aid - Bilateral and Oxygen - Continuous Review of Systems A total of 10 systems reviewed and were otherwise negative Physical Exam Vital Signs Vital Signs - 24 hr 05/14/24 03:38 05/14/24 03:38 05/14/24 03:50 Temperature 36.4 C L Temperature Source Temporal Artery Scan Pulse Rate 59 L Pulse Rate [Apical] 53 L Pulse Rhythm Regular Pulse Strength Normal Respiratory Rate 18 24 Respiratory Effort / Characteristics Non-Labored Spontaneous Non-Labored Spontaneous Respiratory Depth Normal Deep Respiratory Pattern Regular Blood Pressure 151/80 H Blood Pressure [Right Arm] 134/69 Blood Pressure Mean 103 Blood Pressure Mean [Right Arm] 90 Blood Pressure Position Sitting Blood Pressure Position [Right Arm] Sitting Pulse Oximetry 94 94 99 Oxygen Delivery Method Room Air Room Air Room Air Sepsis Recent Fever Within 48 Hours No Sepsis New/Unexplained Change in Mental Status N/A Sepsis Action Taken by Nursing No Action Required 05/14/24 03:50 05/14/24 04:38 Temperature Temperature Source Pulse Rate 56 L Pulse Rate [Apical] Pulse Rhythm Pulse Strength Respiratory Rate Respiratory Effort / Characteristics Respiratory Depth Respiratory Pattern Blood Pressure Blood Pressure [Right Arm] Blood Pressure Mean Blood Pressure Mean [Right Arm] Blood Pressure Position Blood Pressure Position [Right Arm] Pulse Oximetry 97 Oxygen Delivery Method Room Air Sepsis Recent Fever Within 48 Hours Sepsis New/Unexplained Change in Mental Status Sepsis Action Taken by Nursing VITALS: Vitals are noted on the nurse's note and reviewed by myself. Vital signs stable. GENERAL: Pleasant male, in no acute distress, nondiaphoretic, well-developed well-nourished. SKIN: Capillary reflex less than 2 seconds. HEENT: Normocephalic. PERRLA. EOMI. Nares patent. Mucous membranes moist. Neck is supple without nuchal rigidity. HEART: Regular rate and rhythm LUNGS: Diffuse inspiratory and end expiratory wheezes. No retractions or accessory muscle use. ABDOMEN: Positive bowel sounds x 4. Normal tympanic percussion. Soft, nontender, without masses or organomegaly. Huff sign negative. No guarding or rebound tenderness. no CVA tenderness MUSCULOSKELETAL: No gross musculoskeletal defects. NEURO: Patient was alert and oriented to person place and time. No focal neurological deficits. Course Administered Medications Magnesium Sulfate/Dextrose (Magnesium Sulfate / D5w) 1 gm in 100 mls @ 100 mls/hr IV NOW STA Stop: 05/14/24 05:51 Last Admin: 05/14/24 05:13 Dose: 100 mls/hr Documented By: KERRY Discontinued Medications Albuterol (Albut/Ipratrop 3mg/0.5mg Neb 3 Ml Vial) 3 ml INH NOW STA Stop: 05/14/24 03:51 Last Admin: 05/14/24 04:06 Dose: 3 ml Documented By: KERRY Albuterol (Albut/Ipratrop 3mg/0.5mg Neb 3 Ml Vial) 3 ml NEB NOW STA; Protocol Stop: 05/14/24 04:53 Last Admin: 05/14/24 05:13 Dose: 3 ml Documented By: KERRY Azithromycin (Azithromycin 250 Mg Tab) 500 mg PO NOW ONE Stop: 05/14/24 03:51 Last Admin: 05/14/24 04:06 Dose: 500 mg Documented By: KERRY Ceftriaxone Sodium (Rocephin) 2,000 mg in 50 mls @ 100 mls/hr IV NOW STA Stop: 05/14/24 04:19 Last Admin: 05/14/24 04:06 Dose: 100 mls/hr Documented By: KERRY Methylprednisolone (Methylprednisolone 125 Mg/2 Ml Vial) 125 mg IV NOW STA Stop: 05/14/24 03:51 Last Admin: 05/14/24 04:06 Dose: 125 mg Documented By: KERRY Medical Decision Making Medical Records Attestation: I reviewed the patient's medical records. Home Medications Current Medication List: was personally reviewed by me Laboratory Data Attestation: I reviewed the patient's lab results. 05/14/24 04:13 05/14/24 04:13 Lab Results 05/14/24 Range/Units 04:13 WBC 5.47 (4.8-10.8) K/ul RBC 4.02 L (4.70-6.10) M/uL Hgb 12.1 L (14.0-18.0) g/dl Hct 36.4 L (42.0-52.0) % MCV 90.5 (80.0-100.0) fL MCH 30.1 (25.0-34.0) pg MCHC 33.2 (32.0-36.0) g/dL RDW Std Deviation 45.4 (36.4-46.3) fL RDW Coeff of Rosario 13.8 (11.5-14.5) % Plt Count 191 (130-400) K/uL MPV 9.6 (9.4-12.4) fL Immature Gran % (Auto) 0.5 % Neut % (Auto) 80.1 % Lymph % (Auto) 11.2 % [place] % (Auto) 8.0 % Eos % (Auto) 0.0 % Baso % (Auto) 0.2 % Neut # (Auto) 4.38 (1.40-6.50) K/uL Lymph # (Auto) 0.61 L (1.20-3.40) K/uL [place] # (Auto) 0.44 (0.11-0.59) K/uL Eos # (Auto) 0.00 (0.00-0.50) K/uL Baso # (Auto) 0.01 (0.00-0.20) K/uL Immature Gran # (Auto) 0.03 (0.01-0.20) K/uL Sodium 143 (136-145) mmol/L Potassium 4.4 (3.5-5.1) mmol/L Chloride 108 H (98-107) mmol/L Carbon Dioxide 30 (21-32) mmol/L Anion Gap 5 (3-11) BUN 26 H (6-23) mg/dl Creatinine 0.84 (0.6-1.4) mg/dl Est Cr Clr Drug Dosing 74.9 ml/min Est GFR ( Amer) 103.5 ml/min Est GFR (Non-Af Amer) 89.3 ml/min BUN/Creatinine Ratio 31.0 H (10-20) Glucose 126 H (70-99(Fasting)) mg/dl Calcium 8.5 L (8.6-10.3) mg/dl Magnesium 2.1 (1.7-2.4) mg/dl Total Bilirubin 0.3 (0.2-1.0) mg/dl AST 29 (13-39) U/L ALT 27 (7-52) U/L Alkaline Phosphatase 47 (34-104) U/L Troponin I High Sens 14.7 (0-20) pg/ml Total Protein 6.2 (6.0-8.3) gm/dl Albumin 3.7 (3.4-5.0) gm/dl Globulin 2.5 (2.5-4.0) gm/dl Albumin/Globulin Ratio 1.5 (0.9-2) Adenovirus (PCR) Not Detected (NotDetected) B. pertussis DNA (PCR) Not Detected (NotDetected) B.parapertussis DNA PCR Not Detected (NotDetected) C. pneumoniae DNA (PCR) Not Detected (NotDetected) Coronavirus OC43 (PCR) Not Detected (NotDetected) Coronavirus HKU1 (PCR) Not Detected (NotDetected) Coronavirus 229E (PCR) Not Detected (NotDetected) SARS-CoV-2 (PCR) Not Detected (NotDetected) Coronavirus NL63 (PCR) Not Detected (NotDetected) Human Metapneumovir PCR Not Detected (NotDetected) Influenza Type A (PCR) Not Detected (NotDetected) Influenza Type B (PCR) Not Detected (NotDetected) M. pneumoniae (PCR) Not Detected (NotDetected) Parainfluenza 1 (PCR) Not Detected (NotDetected) Parainfluenza 2 (PCR) Not Detected (NotDetected) Parainfluenza 3 (PCR) Not Detected (NotDetected) Parainfluenza 4 (PCR) Not Detected (NotDetected) RSV (PCR) Not Detected (NotDetected) Entero/Rhino (PCR) Not Detected (NotDetected) Imaging Data Attestation: I personally reviewed and interpreted this imaging study as follows: MDM Narrative Prior records/ancillary studies reviewed. Triage Nursing notes reviewed. Additional history obtained from the nursing. The patient's history was concerning for respiratory difficulties. Differential diagnosis: Etiologies such as infections, reactive airway disease, pneumonia, pneumothorax, COPD, CHF, cardiac ischemia, pulmonary embolism, musculoskeletal, gastrointestinal, as well as others were entertained. Physical examination: As above. ER treatment provided: An order was placed for continuous cardiac monitoring. The monitor shows a rate of 60-100 with a sinus rhythm per my interpretation. Nebulizer, Solu-Medrol, magnesium, Rocephin and Zithromax Walking pulse ox and patient was still quite short of breath Nebulizer and magnesium were ordered On reassessment the patient felt better. Diagnostic interpretation by me: The electrocardiogram was ordered for SOB. ECG: Normal sinus, left axis, right bundle branch block, rate of 53. Impression sinus bradycardia with a right bundle branch block left axis independently interpreted by myself and unchanged from prior The labs Independently Interpreted by myself revealed negative troponin, no worrisome leukocytosis Negative BioFire Imaging studies: Chest x-ray with no acute consolidation, pneumothorax or free air per my independent interpretation. Consultation: A consultation was placed with the hospitalist. The case was discussed and diagnostics were reviewed. The patient was evaluated in the ER for further treatment. This appears to be consistent with COPD exacerbation. Patient is still quite winded. This is a second visit. Medicine was consulted and the case was discussed. He will be evaluated for admission by the hospitalist. By the evaluation outlined above emergent etiologies such as CHF, cardiac ischemia, pulmonary embolism, pneumonia, pneumothorax, musculoskeletal, serious bacterial infections, as well as others were deemed relatively unlikely. The pt informed about the findings as listed above. All questions were answered and pleased with the treatment. The chart was completed utilizing [employer] Speech voice recognition software. Grammatical errors, random word insertions, pronoun errors, and incomplete sentences are an occassional consequence of this system due to software limitations, ambient noise, and hardware issues. Any formal questions or concerns about the content, text, or information contained within the body of this dictation should be directly addressed to the physician sugar laboratory assistant for clarification. Impression & Plan Acute exacerbation of chronic obstructive pulmonary disease Discharge Plan Visit Data Chief Complaint: Respiratory Problems Stated Complaint: COPD EXACERPATION ED Provider: Leopoldo Ladd ED Midlevel Provider: Shayna Gallo Discharge Problem: Acute exacerbation of chronic obstructive pulmonary disease Patient Disposition: Admitted As Inpatient Condition: Good Forms Stand Alone Forms: My [facility] Prescriptions Prescriptions: No Action tiotropium bromide [Spiriva with HandiHaler] 18 mcg Capsule, W/Inhalation Device 1 cap INHALATION QAM 30 Days Qty: 30 ketotifen fumarate 0.025 % (0.035 %) drops 1 drp ophthalmic (eye) BID PRN (Reason: Eye Irritation) Rx Instructions: administer at least 8 hours apart teriparatide 20 mcg/dose (620mcg/2.48mL) pen injector 20 mcg subcut QAM calcium carb,[id number] mg-unit-mg tablet 1 tab PO BID carbamide peroxide 6.5 % drops 5 drp otic (ear) DAILY Rx Instructions: Use for up to 4 days for ear wax cholecalciferol (vitamin D3) 25 mcg (1,000 unit) tablet 50 mcg PO DAILY famotidine 20 mg tablet 20 mg PO QAM pantoprazole 40 mg tablet,delayed release (DR/EC) 40 mg PO QAM theophylline 400 mg Tablet Extended Release 24 Hr 400 mg PO BID albuterol sulfate [Proventil HFA] 90 mcg/actuation Hfa Aerosol Inhaler 2 puff INHALATION Q6H PRN (Reason: Shortness Of Breath) atorvastatin 80 mg Tablet 80 mg PO QAM ferrous sulfate 325 mg (65 mg iron) tablet 325 mg PO Q OTHER DAY clopidogrel [Plavix] 75 mg Tablet 75 mg PO QAM chlorthalidone 25 mg Tablet 25 mg PO QPM Hold Instructions: Resume on 04/15/24. Hold until seen by primary care provider since your blood pressure has been running low while hospitalized ketoconazole 2 % Shampoo 1 applic TOPICAL Q OTHER DAY tamsulosin 0.4 mg Capsule 0.4 mg PO HS fluticasone propion-salmeterol 500-50 mcg/dose Blister With Device 1 inh INHALATION BID Ensure Liquid 1 ea PO QAM carvedilol 6.25 mg Tablet 6.25 mg PO BID Qty: 60 0RF olanzapine 10 mg Tablet 10 mg PO HS Qty: 30 0RF divalproex 250 mg Tablet Extended Release 24 Hr 250 mg PO BID Qty: 60 0RF clobetasol 0.05 % Cream 1 applic TOPICAL DAILY PRN (Reason: Rash) folic acid 1 mg Tablet 1 mg PO DAILY ezetimibe [Zetia] 10 mg Tablet 10 mg PO HS rivastigmine 4.6 mg/24 hour Patch 24 Hour 1 patch TRANSDERMAL DAILY prednisone 10 mg tablet 5 mg PO DIRECTED PRN (Reason: exac of COPD) Patient Comments: takes a taper dose starting at 20 mg x 3 days,15 mg x 3 days, 10 mg x 3 days, then 5 mg x 3 days then off 12 days and then start over Rx Instructions: 11/14/23 [facility]start at 20mg go down by 5mg every 3 days" Referrals Referrals: Fanny Clark PADelvisC [Primary Care Provider] -
[2024-05-14] MEDS: cefTRIAXone SODIUM 2,000 MG/50 ML BAG IV STA (04:06)
[2024-05-14] MEDS: ALBUT/IPRATROP 3MG/0.5MG NEB 3 ML VIAL INH STA (04:06)
[2024-05-14] MEDS: methylPREDNISolone 125 MG/2 ML VIAL IV STA (04:06)
[2024-05-14] MEDS: AZITHROMYCIN 250 MG TAB PO ONE (04:06)
[2024-05-14 04:43] LABS: Basophils # (auto) 0.01 K/uL (0.00-0.20); Basophils % (auto) 0.2 %; Hematocrit (blood only) 36.4 % (42.0-52.0); Hemoglobin 12.1 g/dl (14.0-18.0); Immature Granulocytes # (auto) 0.03 K/uL (0.01-0.20); Immature Granulocytes % (auto) 0.5 %; Lymphocytes # (auto) 0.61 K/uL (1.20-3.40); Lymphocytes % (auto) 11.2 %; Mean Corpuscular Hemoglobin 30.1 pg (25.0-34.0); Mean Corpuscular Hgb Conc 33.2 g/dL (32.0-36.0); Mean Corpuscular Volume 90.5 fL (80.0-100.0); Mean Platelet Volume 9.6 fL (9.4-12.4); Monocytes # (auto) 0.44 K/uL (0.11-0.59); Neutrophils # (auto) 4.38 K/uL (1.40-6.50); Neutrophils % (auto) 80.1 %; Platelet Count 191 K/uL (130-400); RDW Coefficient of Variation 13.8 % (11.5-14.5); RDW Standard Deviation 45.4 fL (36.4-46.3); Red Blood Count 4.02 M/uL (4.70-6.10); White Blood Count 5.47 K/ul (4.8-10.8)
[2024-05-14 04:47] LABS: Albumin Globulin Ratio 1.5 (0.9-2); Albumin Level 3.7 gm/dl (3.4-5.0); Bilirubin,Total 0.3 mg/dl (0.2-1.0); Calcium 8.5 mg/dl (8.6-10.3); Creatinine Clr Calc Pharmacy 74.9 ml/min; Est GFR (African American) 103.5 ml/min; Est GFR (Non-African American) 89.3 ml/min; Globulin 2.5 gm/dl (2.5-4.0); Magnesium 2.1 mg/dl (1.7-2.4); Potassium 4.4 mmol/L (3.5-5.1); Total Protein 6.2 gm/dl (6.0-8.3)
[2024-05-14 04:53] LABS: Troponin I High Sensitivity 14.7 pg/ml (0-20)
[2024-05-14] MEDS: MAGNESIUM SULFATE / D5W 1 GM/100 ML BAG IV STA (05:13)
[2024-05-14] MEDS: ALBUT/IPRATROP 3MG/0.5MG NEB 3 ML VIAL NEB STA (05:13)
[2024-05-14 05:14] LABS: Adenovirus PCR Not Detected (NotDetected); Bordetella parapertussis PCR Not Detected (NotDetected); Bordetella pertussis PCR Not Detected (NotDetected); Chlamydia pneumoniae PCR Not Detected (NotDetected); Coronavirus 229E PCR Not Detected (NotDetected); Coronavirus CoV-2 (COVID19)PCR Not Detected (NotDetected); Coronavirus HKU1 PCR Not Detected (NotDetected); Coronavirus NL63 PCR Not Detected (NotDetected); Coronavirus OC43PCR Not Detected (NotDetected); Human Metapneumovirus PCR Not Detected (NotDetected); Influenza A PCR Not Detected (NotDetected); Influenza B PCR Not Detected (NotDetected); Mycoplasma pneumoniae PCR Not Detected (NotDetected); Parainfluenza Virus 1 PCR Not Detected (NotDetected); Parainfluenza Virus 2 PCR Not Detected (NotDetected); Parainfluenza Virus 3 PCR Not Detected (NotDetected); Parainfluenza Virus 4 PCR Not Detected (NotDetected); Respiratory Syncytial VirusPCR Not Detected (NotDetected); Rhinovirus/Enterovirus PCR Not Detected (NotDetected)
--- NOTE | 2024-05-14 05:20 | History & Physical Report ---
Date of Service May 14, 2024 Assessment & Plan (1) Acute exacerbation of chronic obstructive pulmonary disease: Plan: - On room air, mild increased work of breathing - continue home inhalers, duoneb prn, add Pulmicort respules BID - continue theophylline - Received 125mg Solumedrol in ED-> plan to continue 60mg daily - Continue ceftriaxone/azithromycin (2) Bipolar affective disorder in remission: Plan: - plan to continue home meds as per d/c 03/2024-> he states that he belives [facility] might have adjusted one of medications since. F/u with [facility] to ensure updated medication list (3) GERD (gastroesophageal reflux disease): Plan: - continue PPI (4) Hyperlipidemia: Plan: - continue statin, zetia (5) Hypertension: Plan: - continue carvedilol (6) BPH (benign prostatic hyperplasia): Plan: - continue tamsulosin (7) Dementia: Plan: - continue Rivastigmine (8) CAD (coronary artery disease): Plan: - continue plavix Plan Diet: Regular Code: Full VTE prophalsis: Lovenox Med Rec was not completed at time of admission-> he states that 2 of his medications [facility]. Will need to confirm with them what those changes were. History of Present Illness Primary Care Provider: Fanny Clark PA-C 68 year old male with a past medical history of COPD, bipolar disorder, dementia presenting with concern for COPD exacerbation. Symptoms started about 5 days ago. Increased dyspnea, sputum production. Was seen in ED on 05/10 with same concern- was given prednisone x 4 days. Some improvement. Denies chest pain, fever/chills. Is following with [facility] for potential lung transplant and has an upcoming appointment with week. ED Course Significant for: CBC, CMP, Trop wnl. Resp biofire negative. CXR without consolidation. Was given Magnesium, DuoNeb, Solumedrol 125mg, ceft riaxone 2g and 500mg azithromycin. Allergies Allergy/AdvReac Type Severity Reaction Status Date / Time gluten Allergy Severe celiac Verified 04/25/24 08:04 disease wheat Allergy Severe celiac Verified 04/25/24 08:04 disease NSAIDS (Non-Steroidal Allergy Intermediate Hives Verified 04/25/24 08:04 Anti-Inflamma aspirin Allergy Mild RASH,HIVES Verified 04/25/24 08:04 lisinopril Allergy Mild Hives Verified 04/25/24 08:04 naproxen [From Naprosyn] Allergy Mild Hives Verified 04/25/24 08:04 Home Medications Medication Instructions Recorded Confirmed Type tiotropium bromide 18 mcg capsule 1 cap inhalation QAM 30 days #30 02/03/18 History with inhalation device (Spiriva caps with HandiHaler) albuterol sulfate 90 mcg/actuation 2 puff inhalation Q6H PRN 01/16/19 04/25/24 History aerosol inhaler (Proventil HFA) Shortness Of Breath atorvastatin 80 mg tablet 80 mg PO QAM 01/16/19 04/25/24 History theophylline 400 mg 400 mg PO BID 01/16/19 04/25/24 History tablet,extended release 24 hr ferrous sulfate 325 mg (65 mg 325 mg PO Q OTHER DAY 12/11/20 04/25/24 History iron) tablet clopidogrel 75 mg tablet (Plavix) 75 mg PO QAM 04/08/22 04/25/24 History clobetasol 0.05 % topical cream 1 applic topical DAILY PRN Rash 11/14/23 04/25/24 History ezetimibe 10 mg tablet (Zetia) 10 mg PO HS 11/14/23 04/25/24 History folic acid 1 mg tablet 1 mg PO DAILY 11/14/23 04/25/24 History rivastigmine 4.6 mg/24 hour 1 patch transdermal DAILY 11/14/23 04/25/24 History transdermal patch ketotifen fumarate 0.025 % (0.035 1 drp ophthalmic (eye) BID PRN Eye 12/13/23 04/25/24 History %) eye drops Irritation chlorthalidone 25 mg tablet 25 mg PO QPM 01/03/24 04/25/24 History calcium carb,cit 315 mg-vitamin D3 1 tab PO BID 02/28/24 04/25/24 History 250 unit-phytosterols 200 mg tablet carbamide peroxide 6.5 % ear drops 5 drp otic (ear) DAILY ear was 02/28/24 04/25/24 History cholecalciferol (vitamin D3) 25 50 mcg PO DAILY 02/28/24 04/25/24 History mcg (1,000 unit) tablet famotidine 20 mg tablet 20 mg PO QAM 02/28/24 04/25/24 History pantoprazole 40 mg tablet,delayed 40 mg PO QAM 02/28/24 04/25/24 History release teriparatide 20 mcg/dose (620 20 mcg subcut QAM 02/28/24 04/25/24 History mcg/2.48 mL) subcutaneous pen injector fluticasone 500 mcg-salmeterol 50 1 inh inhalation BID 04/06/24 04/25/24 History mcg/dose blistr powdr for inhalation food supplemt, lactose-reduced 1 ea PO QAM 04/06/24 04/25/24 History (Ensure oral liquid) ketoconazole 2 % shampoo 1 applic topical Q OTHER DAY 04/06/24 04/25/24 History tamsulosin 0.4 mg capsule 0.4 mg PO HS 04/06/24 04/25/24 History carvedilol 6.25 mg tablet 6.25 mg PO BID #60 tabs 04/08/24 04/25/24 Rx divalproex 250 mg tablet,extended 250 mg PO BID #60 tabs 04/08/24 04/25/24 Rx release 24 hr olanzapine 10 mg tablet 10 mg PO HS #30 tabs 04/08/24 04/25/24 Rx azithromycin 250 mg tablet 250 mg PO QAM 4 days #4 tabs 05/15/24 Rx prednisone 10 mg tablet 10 mg PO DIRECTED #30 tabs 05/15/24 Rx Past Med/Surg History Problem List (Updated 05/14/24 @ 03:54 by Shayna Gallo PA-C) Acute exacerbation of chronic obstructive pulmonary disease (Acute) Nausea and vomiting Encounter for pre-operative examination Change in bowel habits Bipolar affective disorder in remission RBBB (right bundle branch block with left anterior fascicular block) CAD (coronary artery disease) Domestic problems (Acute) Anxiety (Acute) COPD (chronic obstructive pulmonary disease) Osteoporosis History of colon polyps Gastritis Elevated troponin (Acute) Acute hypokalemia (Acute) Intractable nausea and vomiting (Acute) S/P trigger finger release Dementia stage 3 Trigger finger, right ring finger Trigger thumb of right hand AMS (altered mental status) Encounter for pre-operative examination COVID (Acute) Other instability, left elbow Rotator cuff tear, left Celiac disease Encounter for pre-operative examination Abnormal EKG (Acute) Hypercalcemia (Acute) Vomiting (Acute) Acute duodenitis (Acute) COPD with acute exacerbation (Acute) Restless leg Anemia (Acute) Chronic pain PATTON (dyspnea on exertion) Status post reverse arthroplasty of right shoulder (~04/2020) BPH (benign prostatic hyperplasia) GERD (gastroesophageal reflux disease) Well controlled and stable Hypertension Hyperlipidemia Hx of venous thrombosis and embolism (Acute) Bipolar disorder, unspecified (Acute) Weight loss Pulmonary nodule Hemostasis disorder (Acute) COPD (chronic obstructive pulmonary disease) (Acute) COPD (chronic obstructive pulmonary disease) (Chronic) Heart disease (Chronic) Severe recurrent major depression without psychotic features (Acute 04/19/11) Acute exacerbation of chronic obstructive airways disease (Acute 02/07/11) Generalized anxiety disorder (Chronic 03/31/11) Medical History Pulmonary nodule 1 cm or greater in diameter Restless leg RBBB (right bundle branch block with left anterior fascicular block) Heart disease GERD (gastroesophageal reflux disease) PATTON (dyspnea on exertion) CAD (coronary artery disease) Hx of colonic polyps Dementia per chart, pt. was able to complete PAT interview with ease Osteoporosis Bipolar affective disorder in remission Hx of deep venous thrombosis (2018) rightT ARM 2018 (TREATED WITH ELIQUIS)- on AC x 6 months- then d/c'ed- no issues since. Did follow with heme- no known clotting issues - felt secondary to A-port- A port removed. Hx pulmonary embolism (2009) Manic episode (03/2024) reports manic depressive at beginning of march, resolved Insomnia On anticoagulant therapy plavix daily Hx of non-ST elevation myocardial infarction (NSTEMI) (2019) "debateable" History of COVID-19 (2021) diagnosed 02/04/22 via home test only--cough, fatigue, muscle aches, runny nose--no symptoms now Celiac disease On home oxygen therapy 2L prn PVD (peripheral vascular disease) S/p angioplasties. On Plavix- cannot tolerate ASA Anxiety and depression Immunoglobulin G deficiency infusions monthly at [facility] [place] Hearing deficit b/l perez's Aortic valve defect Had AVR secondary to AR per patient "HAS MINIMAL LEAKING FROM PROSTHETIC COW AORTIC VALVE" Lung nodules Following with pulm Sleep apnea cpap with 2L at hs Chronic obstructive pulmonary disease stage 4 COPD, on prednisone maintenance program, currently going thru eval for lung transplant list Asthma Well controlled - inhalers daily and prn--nebulizer prn Surgical History Hx of colonoscopy with polypectomy Status post trigger finger release 05/2023 @ [facility] [place]--right thumb/ring finger History of transesophageal echocardiography (MELISSA) (~08/16/19) History of cardiac cath (~05/15/19) @ [facility] with Dr. Ji, no stents, no ND, History of vascular access device infuasport placed and removed in past for IGG History of umbilical hernia repair History of right inguinal hernia repair History of cholecystectomy History of esophagogastroduodenoscopy (EGD) History of phacoemulsification of cataract of both eyes with intraocular lens implantation History of angioplasty LEs and hand History of aortic valve replacement (2009) 2009 @ [facility] -follows with Dr. Ji in [place] History of bronchoscopy Family History Father Family history of diabetes mellitus Other No family history of adverse response to anesthesia Social History Smoking Status: Never smoker Tobacco Type: Cigarettes Second Hand Exposure: No; Do You Dip or Chew Tobacco: No; Hx Alcohol Use: No Hx Substance Use: Yes Substance Use Type Other:: medical marijuana Preferred Language: Syrian Communication Ability: Effective Histotechnician Required: No Beliefs That Will Affect Care: None marital status: Current Living Situation: Spouse Current Living Situation Comment: Lives with and son Feels Safe at Home: Yes Gender Identity: Male Assistive Devices: Oxygen - at Night Review of Systems Review of Systems: As per above Physical Exam Physical Exam: Constitutional: well-appearing, no acute distress HEENT: NCAT, no conjunctival injection CV: regular rhythm, no murmur appreciated, extremities well-perfused, no LE edema Resp: + scattered end expiratory wheezing, no increased work of breathing GI: soft, nondistended, nontender MSK: no gross deformities appreciated Skin: warm, dry, no rash appreciated Neuro: alert, oriented, no focal neurologic deficit appreciated Results & Data Results & Data Vital Signs (Past 12 Hours) Vital Signs Temp Pulse Pulse Resp BP BP Pulse Ox 05/14/24 04:38 56 L 05/14/24 03:50 97 05/14/24 03:50 53 L 24 134/69 99 05/14/24 03:38 94 05/14/24 03:38 36.4 C L 59 L 18 151/80 H 94 O2 Del Method 05/14/24 04:38 05/14/24 03:50 Room Air 05/14/24 03:50 Room Air 05/14/24 03:38 Room Air 05/14/24 03:38 Room Air Supervising Physician Co-Signing Physician Notes Attending addendum: I have physically seen this patient, have supervised the medical residents activities, and agree with the H&P unless as otherwise noted. Assessment and Plan: COPD exacerbation- Continue home inhalers DuoNebs every 2 hours as needed Pulmicort Respules 0.5 mg inhaled twice daily Continue theophylline check level Given Solu-Medrol 125 mg IV in ED Solu-Medrol 60 mg IV every 12 hours Ceftriaxone 2 g IV daily Azithromycin 500 mg IV daily Nasal cannula oxygen, titrate to keep pulse ox around 92% Bipolar affective disorder in remission- Continue home medications as noted Hypertension/CAD- Continue carvedilol and clopidogrel Remaining orders and notations as noted Resident Activity Tracking Resident Involvement: Resident Care Provided Care Provided: Adult Hospital Medicine
[2024-05-14] MEDS ORDERED: ALBUTEROL HFA 8 GM INHALER INH PRN (06:32)
--- NOTE | 2024-05-14 06:57 | XRay Report ---
XR chest 1V portable HISTORY: 68 years-old Male Dyspnea COMPARISON: 05/10/2024 TECHNIQUE: AP view of the chest FINDINGS: Cardiomediastinal and hilar silhouettes are unchanged. Median sternotomy. Right shoulder arthroplasty . Emphysema with chronic interstitial coarsening. No pneumothorax, pleural effusion or airspace conso lidation. Bones appear intact. IMPRESSION: Emphysema without acute process of the chest. ACT 112: Negative or not required by law. The above report was generated using voice recognition software. It may contain grammatical, syntax o r spelling errors. Electronically signed by: Humble Chowdhury M.D. 05/14/2024 6:55 AM
[2024-05-14] MEDS: ALBUT/IPRATROP 3MG/0.5MG NEB 3 ML VIAL NEB PRN (07:50)
[2024-05-14] MEDS: BUDESONIDE 0.5 MG/2 ML VIAL (PULMICORT) NEB SCH (07:50)
--- NOTE | 2024-05-14 08:14 | Hospitalist Progress Note ---
Date of Service May 14, 2024 Assessment & Plan (1) Acute exacerbation of chronic obstructive pulmonary disease: Plan: - moderate respiratory distress RR 26 on presentation - continue home inhalers, duoneb prn, add Pulmicort respules BID - continue theophylline - Received 125mg Solumedrol in ED-> plan to continue 40mg bid - ceftriaxone/azithromycin in ER no pneumonia, will de escalate to po azithromycin Will try chest physiotherapy to consider hypertonic saline if needed (2) Bipolar affective disorder in remission: Plan: - plan to continue home meds as per d/c 03/2024- F/u with [facility] to ensure updated medication list valproic acid zyprexa (3) CAD (coronary artery disease): Plan: - continue plavix, coreg (4) BPH (benign prostatic hyperplasia): Plan: - continue tamsulosin (5) Dementia: Plan: - continue Rivastigmine Plan Diet: Regular Code: Full VTE prophalsis: Lovenox Admission and Anticipated Discharge Date Admission Date: May 14, 2024 Subjective This patient looks improved from previous hospital stays but he is short of breath states he feels he got increasing congestion Has been compliant with his medications Typically uses chest vibration vest at home Physical Exam Physical Exam: He is awake and speaking full sentences needs to stop to take of breath Has poor air movement throughout lung exam with the basilar breath sounds no wheezes Results & Data Results & Data Vital Signs (Past 12 Hours) Vital Signs Temp Pulse Pulse Pulse Pulse Pulse Pulse 05/14/24 07:50 55 L 05/14/24 07:23 97.3 F L 54 L 05/14/24 06:38 05/14/24 06:25 97.5 F L 52 L 05/14/24 05:37 49 L 05/14/24 05:11 99 H 68 72 05/14/24 04:38 56 L 05/14/24 03:50 05/14/24 03:50 53 L 05/14/24 03:38 05/14/24 03:38 97.5 F L 59 L Resp Resp Resp Resp BP BP BP 05/14/24 07:50 18 05/14/24 07:23 19 131/75 05/14/24 06:38 05/14/24 06:25 22 157/76 H 05/14/24 05:37 22 135/73 05/14/24 05:11 26 H 24 22 09/16/24 04:38 05/14/24 03:50 05/14/24 03:50 24 134/69 05/14/24 03:38 05/14/24 03:38 18 151/80 H Pulse Ox Pulse Ox Pulse Ox Pulse Ox O2 Del Method O2 Flow Rate 05/14/24 07:50 96 Nasal Cannula 2 05/14/24 07:23 97 Nasal Cannula 2 05/14/24 06:38 Room Air 05/14/24 06:25 93 Room Air 05/14/24 05:37 94 Room Air 05/14/24 05:11 96 97 97 Room Air 05/14/24 04:38 05/14/24 03:50 97 Room Air 05/14/24 03:50 99 Room Air 05/14/24 03:38 94 Room Air 05/14/24 03:38 94 Room Air Laboratory Results Reviewed CBC reviewed chemistry PG Care Time/CCT Total # of Minutes Spent Total Time Spent with Patient: Total time spent is greater than 50% in coordination of care (as documented) at patient's floor/unit and/or counseling patient: Coding Level of Care Code 82377 SUB INP/OBS CARE 2/35MIN Diagnoses Acute exacerbation of chronic obstructive pulmonary disease J44.1 Bipolar affective disorder in remission F31.70 CAD (coronary artery disease) I25.10 BPH (benign prostatic hyperplasia) N40.0 Dementia F03.90
[2024-05-14] MEDS: DIVALPROEX EXTENDED RELEASE 250 MG TABCR PO SCH (08:53)
[2024-05-14] MEDS: carvediloL 6.25 MG TAB PO SCH (08:53)
[2024-05-14] MEDS: FAMOTIDINE 20 MG TAB PO SCH (08:53)
[2024-05-14] MEDS: UMECLIDINIUM BROMIDE 62.5MCG/BLISTER 7 PUFFS/INHALER INH SCH (08:54)
[2024-05-14] MEDS: CLOPIDOGREL BISULFATE 75 MG TAB PO SCH (08:54)
[2024-05-14] MEDS: FLUTICASONE/VILANTEROL 200/25MCG 14 PUFFS/INHALER INH SCH (08:54)
[2024-05-14] MEDS: PANTOprazole 40 MG TAB PO SCH (08:54)
[2024-05-14] MEDS: THEOPHYLLINE 400 MG EXTENDED REL TAB PO SCH (08:54)
[2024-05-14] MEDS: ATORVASTATIN 40 MG TAB PO SCH (08:54)
[2024-05-14] MEDS: methylPREDNISolone 40 MG in SYRINGE 0 ML IV SCH (09:00)
[2024-05-14] MEDS ORDERED: methylPREDNISolone 60 MG in SYRINGE 0 ML IV SCH (09:00)
[2024-05-14] MEDS: ENOXAPARIN INJ 40 MG/0.4 ML SYR SQ SCH (16:06)
[2024-05-14] MEDS: RIVASTIGMINE PATCH TD SCH (16:06)
[2024-05-14] MEDS: OLANZapine 10 MG TAB PO SCH (22:10)
[2024-05-14] MEDS: CHLORTHALIDONE 25 MG TAB PO SCH (22:10)
[2024-05-14] MEDS: EZETIMIBE 10 MG TAB PO SCH (22:10)
[2024-05-15] MEDS ORDERED: cefTRIAXone SODIUM 1,000 MG/50 ML BAG IV SCH (04:00)
[2024-05-15] MEDS ORDERED: AZITHROMYCIN 250 MG in DEXTROSE 5% 250 ML IV SCH (04:30)
--- NOTE | 2024-05-15 06:48 | Electrocardiogram Report ---
Test Reason : Blood Pressure : */* mmHG Vent. Rate : 53 BPM Atrial Rate : 53 BPM P-R Int : 150 ms QRS Dur : 118 ms QT Int : 444 ms P-R-T Axes : 28 109 -13 degrees QTcB Int : 416 ms Sinus bradycardia Incomplete right bundle branch block Septal infarct (cited on or before 10-May-2024) Abnormal ECG Suspect L arm L leg lead reversal on current or comparison When compared with ECG of 10-May-2024 17:23, QRS axis Shifted right T wave inversion now evident in Inferior leads Confirmed by Azeem Amor ([id number]) on 05/15/2024 6:47:49 AM Referred By: REFERRED SELF Confirmed By: Azeem Amor
[2024-05-15 07:13] VITALS: TEMP 97.9
[2024-05-15] MEDS: AZITHROMYCIN 250 MG TAB PO SCH (08:24)
[2024-05-15] MEDS ORDERED: methylPREDNISolone 60 MG in SYRINGE 0 ML IV SCH (09:00)
[2024-05-15] MEDS ORDERED: methylPREDNISolone 125 MG/2 ML VIAL IV SCH (09:00)
[2024-05-15 14:53] VITALS: BP 148/87; PULSE 58; RESP 20; O2SAT 96
--- NOTE | 2024-05-15 16:31 | Discharge Summary ---
Discharge Summary Date of Service May 15, 2024 Principal Dx & Hospital Course #1 = Principal Diagnosis (1) Acute exacerbation of chronic obstructive pulmonary disease: (2) CAD (coronary artery disease): (3) Dementia: (4) BPH (benign prostatic hyperplasia): (5) Hypertension: (6) Hyperlipidemia: (7) Bipolar disorder, unspecified: Plan 68-year-old male with past medical history of COPD, coronary artery disease, hypertension, hyperlipidemia, bipolar disorder, dementia who presented with shortness of breath worsening over 5 days with increased sputum production. Patient was initially seen in the ED on 05/10/2024 with similar symptoms and was given prednisone for 4 days with some improvement but patient symptoms got worse once he finishes prednisone. Patient had a chest x-ray done which did not show any consolidation, his respiratory bio fire was negative and he received magnesium, DuoNebs, Solu- Medrol 125 mg IV along with ceftriaxone 2 g and azithromycin 500 mg IV in ED and he was admitted under the hospitalist service Patient is saturating well on room air at present and he is not wheezing and is ambulating without any issues. He was placed on IV Solu-Medrol which has not been transitioned to oral prednisone for a longer 10-day taper. As per patient longer taper seem to work better for him than short course of prednisone. Patient has nebulizers and inhalers at home and he will continue his inhalers at home and follow-up with his own senior clinician as an outpatient With respect to CAD, patient will continue his Plavix, statin and carvedilol and follow-up with his PCP as an outpatient Patient seen and examined today and he is stable for discharge home. I gone over the discharge care plan with the patient in great detail and answered all his questions. Patient to follow-up with his PCP and senior clinician as outpatient This discharge took greater than 30 minutes to coordinate Admission HPI Per Admitting Provider 68 year old male with a past medical history of COPD, bipolar disorder, dementia presenting with concern for COPD exacerbation. Symptoms started about 5 days ago. Increased dyspnea, sputum production. Was seen in ED on 05/10 with same concern- was given prednisone x 4 days. Some improvement. Denies chest pain, fever/chills. Is following with [facility] for potential lung transplant and has an upcoming appointment with week. ED Course Significant for: CBC, CMP, Trop wnl. Resp biofire negative. CXR without consolidation. Was given Magnesium, DuoNeb, Solumedrol 125mg, ceftriaxone 2g and 500mg azithromycin. Discharge Exam General: No acute distress, speaking in full sentences Psych: Awake and alert HEENT: Anicteric sclera, moist oral mucosa CVS: Regular rate and rhythm Lungs: Bilateral air entry, no wheezing noted Abdomen: Soft, nontender, no rebound, no guarding Ext: No lower extremity edema, no calf tenderness Neuro: No focal motor deficits noted Discharge Plan Discharge Items Patient Disposition: Home - Self-Care Reason For Visit: COPD EXACERBATION Discharge Diagnosis: Acute exacerbation of chronic COPD Coronary artery disease Hyperlipidemia Bipolar disorder BPH Dementia Condition on Discharge: Good Activity: Resume your previous activity Non-emergency contact: Primary Care Provider Call non-emergency contact if: you have any medication questions, your symptoms worsen and you have a fever Follow-up/Referrals: Fanny Clark PA-C [Primary Care Provider] - Diet: Heart Healthy Addtl Attending Provider Instructions: Follow-up with your primary care provider within 1 week regarding: Posthospital discharge, medication review, medication refills and follow-up on all your medical problems, outpatient labs Please take all your discharge medications, discharge information and discharge instructions to all your doctors appointments. Avoid all NSAIDs including ibuprofen, Motrin, Advil, Aleve, naproxen, meloxicam, Toradol, diclofenac Labs through PCP in 1 week: CBC, CMP, Mg, HgBA1C, Vitamin B12 Follow-up with your outpatient senior clinician in 1 weeks time PREDNISONE 10 MG TABLET TAPER STARTING 05/16/24: 5 tablets (50 MG) daily for 2 days, 4 tablets (40 MG) daily for 2 days, 3 tablets (30 MG) daily for 2 days, 2 tablets (20 MG) daily for 2 days, 1 tablet (10 MG) daily for 2 days and then stop Pending Studies at Discharge: No Stand-Alone Forms: My [employer], Smoking Cessation Medications and DC Order Prescriptions: New azithromycin 250 mg Tablet 250 mg PO QAM 4 Days Qty: 4 0RF prednisone 10 mg tablet 10 mg PO DIRECTED Qty: 30 0RF Rx Instructions: see taper instructions: 5 tablets daily for 2 days, 4 tablets daily for 2 days, 3 tablets daily for 2 days, 2 tablets daily for 2 days, 1 tablet daily for 2 days and then stop Continued tiotropium bromide [Spiriva with HandiHaler] 18 mcg Capsule, W/Inhalation Device 1 cap INHALATION QAM 30 Days Qty: 30 ketotifen fumarate 0.025 % (0.035 %) drops 1 drp ophthalmic (eye) BID PRN (Reason: Eye Irritation) Rx Instructions: administer at least 8 hours apart teriparatide 20 mcg/dose (620mcg/2.48mL) pen injector 20 mcg subcut QAM calcium carb,[id number] [id number] mg-unit-mg tablet 1 tab PO BID carbamide peroxide 6.5 % drops 5 drp otic (ear) DAILY Rx Instructions: Use for up to 4 days for ear wax cholecalciferol (vitamin D3) 25 mcg (1,000 unit) tablet 50 mcg PO DAILY famotidine 20 mg tablet 20 mg PO QAM pantoprazole 40 mg tablet,delayed release (DR/EC) 40 mg PO QAM theophylline 400 mg Tablet Extended Release 24 Hr 400 mg PO BID albuterol sulfate [Proventil HFA] 90 mcg/actuation Hfa Aerosol Inhaler 2 puff INHALATION Q6H PRN (Reason: Shortness Of Breath) atorvastatin 80 mg Tablet 80 mg PO QAM ferrous sulfate 325 mg (65 mg iron) tablet 325 mg PO Q OTHER DAY clopidogrel [Plavix] 75 mg Tablet 75 mg PO QAM chlorthalidone 25 mg Tablet 25 mg PO QPM Hold Instructions: Resume on 04/15/24. Hold until seen by primary care provider since your blood pressure has been running low while hospitalized ketoconazole 2 % Shampoo 1 applic TOPICAL Q OTHER DAY tamsulosin 0.4 mg Capsule 0.4 mg PO HS fluticasone propion-salmeterol 500-50 mcg/dose Blister With Device 1 inh INHALATION BID Ensure Liquid 1 ea PO QAM carvedilol 6.25 mg Tablet 6.25 mg PO BID Qty: 60 0RF olanzapine 10 mg Tablet 10 mg PO HS Qty: 30 0RF divalproex 250 mg Tablet Extended Release 24 Hr 250 mg PO BID Qty: 60 0RF clobetasol 0.05 % Cream 1 applic TOPICAL DAILY PRN (Reason: Rash) folic acid 1 mg Tablet 1 mg PO DAILY ezetimibe [Zetia] 10 mg Tablet 10 mg PO HS rivastigmine 4.6 mg/24 hour Patch 24 Hour 1 patch TRANSDERMAL DAILY Discontinued prednisone 10 mg tablet 5 mg PO DIRECTED PRN (Reason: exac of COPD) Patient Comments: takes a taper dose starting at 20 mg x 3 days,15 mg x 3 days, 10 mg x 3 days, then 5 mg x 3 days then off 12 days and then start over Rx Instructions: 11/14/23 In process to be mailed out per HI:"start at 20mg go down by 5mg every 3 days" Discharge Orders: Discharge Order (Routine); Ordered 05/15/24 Ordered By: Jono Finn/Other Patient Handouts: COPD Using Inhalers Admission Data Admit Date/Time: 05/14/24 05:10 Attending Provider: Jono Davis Admit Provider: Terra Israel Primary Care Provider: Fanny Clark Other Providers: Wagner Pineda; [facility] Hospital Stay Data Consultations 05/14/24 04:53 ED Decision to Admit Stat Pending Results Patient Have Any Pending Studies at Discharge: No Discharge Instructions Given to Patient (Per Discharging Provider) Follow-up with your primary care provider within 1 week regarding: Posthospital discharge, medication review, medication refills and follow-up on all your medical problems, outpatient labs Please take all your discharge medications, discharge information and discharge instructions to all your doctors appointments. Avoid all NSAIDs including ibuprofen, Motrin, Advil, Aleve, naproxen, meloxicam, Toradol, diclofenac Labs through PCP in 1 week: CBC, CMP, Mg, HgBA1C, Vitamin B12 Follow-up with your outpatient senior clinician in 1 weeks time PREDNISONE 10 MG TABLET TAPER STARTING 05/16/24: 5 tablets (50 MG) daily for 2 days, 4 tablets (40 MG) daily for 2 days, 3 tablets (30 MG) daily for 2 days, 2 tablets (20 MG) daily for 2 days, 1 tablet (10 MG) daily for 2 days and then stop Total Time Total Time Spent Total Time Spent (In Minutes): 35 minutes Coding Level of Care Code 96801 INP/OBS DISCH >30 MIN Diagnoses Acute exacerbation of chronic obstructive pulmonary disease J44.1 CAD (coronary artery disease) I25.10 Dementia F03.90 BPH (benign prostatic hyperplasia) N40.0 Hypertension I10 Hyperlipidemia E78.5 Bipolar disorder, unspecified F31.9 Time Spent (min) 35
[2024-05-15] MEDS: predniSONE 20 MG TAB PO STA (17:17)
[2024-05-16] MEDS ORDERED: predniSONE 20 MG TAB PO SCH (09:00)
--- NOTE | 2024-05-16 19:00 | Billing Data ---
Date of Service May 16, 2024 Coding Level of Care Code 68784 INT INP/OBS CARE
== END 2024-05-15 17:58 | disposition home or self-care (01) ==
LOC: ED 03:37 → 3W 03:37 → SUATTDRO 05:10 → 3W 05:41

== ENCOUNTER 2024-06-20 09:51 | Inpatient (IN) ==
[2024-06-20 10:55] LABS: Appearance Urine Clear (Clear); Bacteria Urine Automated None Seen (None Seen); Bilirubin Urine Negative (Negative); Blood Urine Negative (Negative); Cast Urine Automated 0-2 /lpf (0-2); Color Urine Yellow; Epithelial Cell Urine Auto 0-2 /hpf (0-2); Glucose Urine UA Negative (Negative); Ketones Urine Negative (Negative); Leukocyte Esterase Urine Negative (Negative); Nitrite Urine Negative (Negative); Protein Urine 1+ (Negative); RBC Urine Automated 0-2 /hpf (0-2); Specific Gravity Urine 1.025 (1.000-1.030); Urobilinogen Urine Negative (Negative); WBC Urine Automated 0-5 /hpf (0-5); pH Urine 8.5 (4.5-7.5)
[2024-06-20 11:10] LABS: Alanine Aminotransferase 62 U/L (7-52); Albumin Globulin Ratio 1.1 (0.9-2); Albumin Level 3.6 gm/dl (3.4-5.0); Alkaline Phosphatase 153 U/L (34-104); Anion Gap 5 (3-11); Aspartate Aminotransferase 64 U/L (13-39); BUN Creatinine Ratio 20.8 (10-20); Bilirubin,Total 1.3 mg/dl (0.2-1.0); Blood Urea Nitrogen 21 mg/dl (6-23); Calcium 8.5 mg/dl (8.6-10.3); Carbon Dioxide 28 mmol/L (21-32); Chloride 106 mmol/L (98-107); Globulin 3.4 gm/dl (2.5-4.0); Glucose 96 mg/dl (70-99(Fasting)); Lipase 12 U/L (11-82); Potassium 4.3 mmol/L (3.5-5.1); Sodium 139 mmol/L (136-145)
[2024-06-20 11:18] LABS: Basophils # (auto) 0.03 K/uL (0.00-0.20); Basophils % (auto) 0.4 %; Eosinophils # (auto) 0.05 K/uL (0.00-0.50); Eosinophils % (auto) 0.6 %; Hematocrit (blood only) 37.3 % (42.0-52.0); Hemoglobin 12.7 g/dl (14.0-18.0); Immature Granulocytes # (auto) 0.05 K/uL (0.01-0.20); Immature Granulocytes % (auto) 0.6 %; Lymphocytes # (auto) 0.42 K/uL (1.20-3.40); Lymphocytes % (auto) 5.4 %; Mean Corpuscular Hemoglobin 31.1 pg (25.0-34.0); Mean Corpuscular Volume 91.2 fL (80.0-100.0); Mean Platelet Volume 9.6 fL (9.4-12.4); Monocytes # (auto) 0.36 K/uL (0.11-0.59); Monocytes % (auto) 4.6 %; Neutrophils # (auto) 6.93 K/uL (1.40-6.50); Neutrophils % (auto) 88.4 %; Platelet Count 172 K/uL (130-400); RDW Coefficient of Variation 13.9 % (11.5-14.5); RDW Standard Deviation 46.6 fL (36.4-46.3); Red Blood Count 4.09 M/uL (4.70-6.10); White Blood Count 7.84 K/ul (4.8-10.8)
[2024-06-20] MEDS: OPTIRAY 320 100ml IV ONE (11:29)
--- NOTE | 2024-06-20 11:49 | XRay Report ---
SINGLE VIEW CHEST CLINICAL HISTORY: Generalized abdominal pain. FINDINGS: 2 AP, portable, upright chest radiographs are compared to study dated 05/14/2024 and correla humberto with chest CT dated 11/14/2023. The the patient is status post midline sternotomy and cardiac valv e surgery. The heart is enlarged but noting atherosclerotic calcification of the thoracic aorta. The pulmonary vasculature is noncongested. Emphysema and chronic interstitial thickening is similar to pr evious. Scarring/atelectasis is noted at both lung bases. No airspace consolidation or large pleural effusion is identified. No pneumothorax is seen. The bony thorax is grossly intact. A right shoulder arthroplasty is in place. Arthritic change is seen in the left shoulder. Cholecystectomy clips are no humberto in the right upper quadrant. IMPRESSION: Cardiomegaly and emphysema with no active disease in the chest. ACT 112: Negative or not required by law. Electronically signed by: Rc Hitchcock M.D. 06/20/2024 11:47 AM
--- NOTE | 2024-06-20 12:25 | CT Scan Report ---
ABDOMEN AND PELVIS CT WITH IV CONTRAST CT DOSE: 1076.21 mGy.cm HISTORY: Acute right lower quadrant abdominal pain RLQ abd pain TECHNIQUE: Multiaxial CT images of the abdomen and pelvis were performed following the IV administrat ion of 94 cc of Optiray, A dose lowering technique was utilized adhering to the principles of ALARA. COMPARISON STUDY: 11/14/2023 FINDINGS: Cardiomegaly. Median sternotomy. Trace pleural effusions. Emphysema with mild bibasilar ate lectasis. Mild upper abdominal pneumoperitoneum. Unremarkable spleen, moderately atrophic pancreas an d adrenal glands. Cholecystectomy with likely postsurgical biliary ductal dilation. Patent portal vei n. No pneumatosis or portal venous gas identified. There are a few scattered hypodense foci of the kidneys measuring up to 2.2 cm on the right suggestiv e of cysts. No hydronephrosis. Unremarkable urinary bladder. Atherosclerosis of the aorta without ane urysm. No lymphadenopathy. No bowel obstruction. Colonic diverticulosis with a catheter. Diverticulit is of the descending colon and descending sigmoid junction. There is adjacent inflammatory stranding with peripheral enhancing air and fluid filled collection within the left paracolic gutter measuring 1.3 x 1.6 cm on image 195 series 3 extending for a length of approximately 10 cm. No drainable fluid collections. No CT evidence of acute appendicitis. Air and fluid-filled loops of small bowel measure up to approximately 3.3 cm suggestive of reactive ileus. No high-grade small bowel obstruction. 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 No acute fracture. IMPRESSION: 1. Acute perforated diverticulitis of the distal descending colon/descending sigmoid junction with pn eumoperitoneum. 2. Pericolic fluid collection compatible with developing abscess which is not drainable secondary to small size in AP and transverse dimensions. 3. No bowel obstruction. 4. Pulmonary emphysema with trace pleural effusions. 5. Cholecystectomy. ACT 112: Negative or not required by law. The above report was generated using voice recognition software. It may contain grammatical, syntax o r spelling errors. Electronically signed by: Humble Chowdhury M.D. 06/20/2024 12:23 PM
[2024-06-20] MEDS: AMPICILLIN/SULBACTAM SOD 3,000 MG/100 ML BAG IV STA (12:53)
--- NOTE | 2024-06-20 13:19 | History & Physical Report ---
Date of Service June 20, 2024 Assessment & Plan (1) Perforation of sigmoid colon due to diverticulitis: Plan: Worsening abdominal and right groin pain that began on Sunday 06/17; reported fevers at home Patient presented to the ED on 06/20 No leukocytosis; afebrile A/P CT on arrival revealed an acute perforated diverticulitis of the distal descending colon/descending sigmoid junction with pneumoperitoneum; developing abscess General Surgery consult appreciated Unasyn 3000 mg IV x 1 given in the ED Will continue on Zosyn 4.5 g IV q8h Keep n.p.o. except for some p.o. medications; will attempt to switch medications to IV where possible IV pain control IV antiemetics A.m. CBC, CMP, Mag (2) Transaminitis: Plan: Mildly elevated on arrival Liver unremarkable on A/P CT Continue to trend CMP (3) COPD (chronic obstructive pulmonary disease): Plan: Stage IV; patient endorses both SOB at rest and with exertion Patient is on supplemental oxygen 2L NC as needed Patient is currently a lung transplant candidate for [facility] Continue prednisone taper; patient was set to start 20 mg daily dosage on 06/20 (4) CAD (coronary artery disease): Plan: Will plan to hold Plavix for now; history of heart valves Plan Disposition: Admit to [facility] telemetry Full code N.p.o. except for some p.o. medications VTE PPx: SCDs; hold Plavix and chemical DVT PPx for now in the setting of potential surgical intervention History of Present Illness Chief Complaint: Abdominal pain Primary Care Provider: Fanny Clark PA-C Wild is a 68-year-old male with PMH of dementia, COPD, bipolar disorder, CAD, osteoporosis, GERD, HTN, HTN, aortic valve replacement, and gastritis. He presented on 06/20 for LLQ abdominal and right groin pain that started on Saturday 06/16 and has gradually worsened. The pain was not too bad on Tuesday, but then he developed a fever of 102.1 F on Tuesday. He took Tylenol and the fever did not return. He has been taking Tylenol intermittently over the past couple days for his pain, but he reports this has not been helping. The pain is located in his left lower quadrant, and he characterizes it as a constant pain that shoots across his stomach when he stands. He reports the pain is 9/10 at worst, and 6/10 while he is at rest. He reports he has never had pain like this before. No prior history of diverticulitis. The pain also radiates towards his groin and down his legs along with some numbness and tingling. No lower back pain. No urinary/bowel changes (no blood in the urine or stool or urinary/bowel incontinence). He reports he has been eating and drinking okay and has not had any nausea or vomiting. Patient did not take his regular morning medicine today; no recent change in medications. He manages his own medicine at home. He is on 2L NC as needed for his COPD; uses at at bedtime as well as BiPAP. He is currently being evaluated for a lung transplant at [facility]. He is a former tobacco cigarette smoker but quit in 2009. He denies any recent alcohol use. Allergy to NSAIDs. Patient is hypertensive at 146/71 at time of admission; SpO2 97% on 2L NC. ED course: Unasyn 3000 mg IV Morphine 4 mg IV Zofran 4 mg IV ROS: Patient endorses fever, chills, SOB at rest and with exertion and when talking (attributes to COPD), productive cough (cream color), pleuritic CP, LLQ abdominal pain, and numbness/tingling radiating from the LLQ of abdomen into the groin and down the legs. Patient denies dizziness, lightheadedness, chest pain, hemoptysis, nausea, vomiting, melena, diarrhea, constipation, blood in the urine/stool, changes in urinary/bowel habits, urinary/fecal incontinence, or lower back pain. Allergies Allergy/AdvReac Type Severity Reaction Status Date / Time gluten Allergy Severe celiac Verified 06/05/24 09:03 disease wheat Allergy Severe celiac Verified 06/05/24 09:03 disease NSAIDS (Non-Steroidal Allergy Intermediate Hives Verified 06/05/24 09:03 Anti-Inflamma aspirin Allergy Mild RASH,HIVES Verified 06/05/24 09:03 lisinopril Allergy Mild Hives Verified 06/05/24 09:03 naproxen [From Naprosyn] Allergy Mild Hives Verified 06/05/24 09:03 Home Medications Medication Instructions Recorded Confirmed Type tiotropium bromide 18 mcg capsule 1 cap inhalation QAM 30 days #30 02/03/18 06/20/24 History with inhalation device (Spiriva caps with HandiHaler) albuterol sulfate 90 mcg/actuation 2 puff inhalation Q6H PRN 01/16/19 06/20/24 History aerosol inhaler (Proventil HFA) Shortness Of Breath atorvastatin 80 mg tablet 80 mg PO QAM 01/16/19 06/20/24 History theophylline 400 mg 400 mg PO BID 01/16/19 06/20/24 History tablet,extended release 24 hr ferrous sulfate 325 mg (65 mg 325 mg PO Q OTHER DAY 12/11/20 06/20/24 History iron) tablet clopidogrel 75 mg tablet (Plavix) 75 mg PO QAM 04/08/22 06/20/24 History clobetasol 0.05 % topical cream 1 applic topical DAILY PRN Rash 11/14/23 06/20/24 History ezetimibe 10 mg tablet (Zetia) 10 mg PO HS 11/14/23 06/20/24 History folic acid 1 mg tablet 1 mg PO DAILY 11/14/23 06/20/24 History rivastigmine 4.6 mg/24 hour 1 patch transdermal DAILY 11/14/23 06/20/24 History transdermal patch ketotifen fumarate 0.025 % (0.035 1 drp ophthalmic (eye) BID PRN Eye 12/13/23 06/20/24 History %) eye drops Irritation chlorthalidone 25 mg tablet 25 mg PO QPM 01/03/24 06/20/24 History calcium 315 mg-vitamin D3 250 1 tab PO BID 02/28/24 06/20/24 History unit-phytosterols 200 mg tablet carbamide peroxide 6.5 % ear drops 5 drp otic (ear) DAILY ear wax 02/28/24 06/20/24 History cholecalciferol (vitamin D3) 25 50 mcg PO QAM 02/28/24 06/20/24 History mcg (1,000 unit) tablet famotidine 20 mg tablet 20 mg PO QAM 02/28/24 06/20/24 History pantoprazole 40 mg tablet,delayed 40 mg PO QAM 02/28/24 06/20/24 History release teriparatide 20 mcg/dose (620 20 mcg subcut QAM 02/28/24 06/20/24 History mcg/2.48 mL) subcutaneous pen injector fluticasone 500 mcg-salmeterol 50 1 inh inhalation BID 04/06/24 06/20/24 History mcg/dose blistr powdr for inhalation food supplemt, lactose-reduced 1 ea PO QAM 04/06/24 06/20/24 History (Ensure oral liquid) ketoconazole 2 % shampoo 1 applic topical Q OTHER DAY 04/06/24 06/20/24 History tamsulosin 0.4 mg capsule 0.4 mg PO HS 04/06/24 06/20/24 History carvedilol 6.25 mg tablet 6.25 mg PO BID #60 tabs 04/08/24 06/20/24 Rx divalproex 250 mg tablet,extended 250 mg PO BID #60 tabs 04/08/24 06/20/24 Rx release 24 hr olanzapine 10 mg tablet 10 mg PO HS #30 tabs 04/08/24 06/20/24 Rx prednisone 10 mg tablet 10 mg PO DIRECTED #30 tabs 05/15/24 06/20/24 Rx Past Med/Surg History Problem List (Updated 06/20/24 @ 13:21 by Raoul Dow PA-C) Transaminitis Perforation of sigmoid colon due to diverticulitis Acute exacerbation of chronic obstructive pulmonary disease (Acute) Nausea and vomiting Change in bowel habits Bipolar affective disorder in remission RBBB (right bundle branch block with left anterior fascicular block) CAD (coronary artery disease) Domestic problems (Acute) Anxiety (Acute) COPD (chronic obstructive pulmonary disease) Osteoporosis History of colon polyps Gastritis Elevated troponin (Acute) Acute hypokalemia (Acute) Intractable nausea and vomiting (Acute) S/P trigger finger release Dementia stage 3 Trigger finger, right ring finger Trigger thumb of right hand AMS (altered mental status) Encounter for pre-operative examination COVID (Acute) Other instability, left elbow Rotator cuff tear, left Celiac disease Encounter for pre-operative examination Abnormal EKG (Acute) Hypercalcemia (Acute) Vomiting (Acute) Acute duodenitis (Acute) COPD with acute exacerbation (Acute) Restless leg Anemia (Acute) Chronic pain PATTON (dyspnea on exertion) Status post reverse arthroplasty of right shoulder (~04/2020) BPH (benign prostatic hyperplasia) GERD (gastroesophageal reflux disease) Well controlled and stable Hypertension Hyperlipidemia Hx of venous thrombosis and embolism (Acute) Bipolar disorder, unspecified (Acute) Weight loss Pulmonary nodule Hemostasis disorder (Acute) COPD (chronic obstructive pulmonary disease) (Acute) COPD (chronic obstructive pulmonary disease) (Chronic) Heart disease (Chronic) Severe recurrent major depression without psychotic features (Acute 04/19/11) Acute exacerbation of chronic obstructive airways disease (Acute 02/07/11) Generalized anxiety disorder (Chronic 03/31/11) Medical History Pulmonary nodule 1 cm or greater in diameter Restless leg RBBB (right bundle branch block with left anterior fascicular block) Heart disease GERD (gastroesophageal reflux disease) PATTON (dyspnea on exertion) CAD (coronary artery disease) Hx of colonic polyps Dementia Osteoporosis Bipolar affective disorder in remission Hx of deep venous thrombosis (2018) Hx pulmonary embolism (2009) Manic episode (03/2024) Insomnia On anticoagulant therapy Hx of non-ST elevation myocardial infarction (NSTEMI) (2019) History of COVID-19 (2021) Celiac disease On home oxygen therapy PVD (peripheral vascular disease) Anxiety and depression Immunoglobulin G deficiency Hearing deficit Aortic valve defect Lung nodules Sleep apnea Chronic obstructive pulmonary disease Asthma Surgical History Hx of colonoscopy with polypectomy Status post trigger finger release History of transesophageal echocardiography (MELISSA) (~08/16/19) History of cardiac cath (~05/15/19) History of vascular access device History of umbilical hernia repair History of right inguinal hernia repair History of cholecystectomy History of esophagogastroduodenoscopy (EGD) History of phacoemulsification of cataract of both eyes with intraocular lens implantation History of angioplasty History of aortic valve replacement (2009) History of bronchoscopy Family History Father Family history of diabetes mellitus Other No family history of adverse response to anesthesia Social History Smoking Status: Never smoker Tobacco Type: Cigarettes Second Hand Exposure: No; Do You Dip or Chew Tobacco: No; Hx Alcohol Use: No Hx Substance Use: Yes Substance Use Type Other:: medical marijuana Preferred Language: [place] Communication Ability: Effective Tester Electronic Scale Required: No Beliefs That Will Affect Care: None marital status: Current Living Situation: Spouse Current Living Situation Comment: Lives with and son Feels Safe at Home: Yes Gender Identity: Male Assistive Devices: Oxygen - at Night Review of Systems Review of Systems: See HPI above Physical Exam Physical Exam: General: no acute distress; pleasant affect; non-toxic appearing; well- nourished; cooperative; SpO2 97% on 2L NC HEENT: normocephalic, atraumatic; no scleral icterus; PERRLA; vision and hearing grossly intact Neck: supple; no lymphadenopathy; trachea midline Skin: warm, dry without signs of tenting; no cyanosis; no rashes, bruising, lesions, or erythema noted CV: chest wall NTP; RRR; S1/S2 normal; no murmurs/rubs/gallops; pulses intact and symmetric at radial, DP, and PT Lungs: no acute respiratory distress; mild conversational dyspnea; symmetrical chest wall expansion; significant bibasilar crackles and wheezing ABD: Soft; pain to palpation of the LLQ; other quadrants are NTP; BS present; no rebound/guarding MSK: no tics or fasciculations; no edema noted in the LEs b/l, nonerythematous Neuro: A&Ox3; normal mood and affect; fluent speech; no focal deficits; sensation intact and symmetric in the lower extremities bilaterally Results & Data Results & Data Vital Signs (Past 12 Hours) Vital Signs Temp Pulse Pulse Resp BP BP Pulse Ox 06/20/24 12:56 36.8 C 06/20/24 12:00 80 17 146/71 H 97 06/20/24 10:46 79 17 145/74 H 100 06/20/24 10:44 79 18 100 06/20/24 10:02 37.1 C 85 14 131/81 96 O2 Del Method O2 Flow Rate 06/20/24 12:56 06/20/24 12:00 Nasal Cannula 2 06/20/24 10:46 Nasal Cannula 2 06/20/24 10:44 Nasal Cannula 2 06/20/24 10:02 Room Air Laboratory Results Abnormal lab results 06/20/24 Range/Units 10:38 RBC 4.09 L (4.70-6.10) M/uL Hgb 12.7 L (14.0-18.0) g/dl Hct 37.3 L (42.0-52.0) % RDW Std Deviation 46.6 H (36.4-46.3) fL Neut # (Auto) 6.93 H (1.40-6.50) K/uL Lymph # (Auto) 0.42 L (1.20-3.40) K/uL BUN/Creatinine Ratio 20.8 H (10-20) Calcium 8.5 L (8.6-10.3) mg/dl Total Bilirubin 1.3 H (0.2-1.0) mg/dl AST 64 H (13-39) U/L ALT 62 H (7-52) U/L Alkaline Phosphatase 153 H (34-104) U/L Urine pH 8.5 H (4.5-7.5) Urine Protein 1+ H (Negative) Diagnostic Findings Abdomen/Pelvis CT 06/20/24 10:[address] WITH IV CONTRAST CT DOSE: 1076.21 mGy.cm HISTORY: Acute right lower quadrant abdominal pain RLQ abd pain TECHNIQUE: Multiaxial CT images of the abdomen and pelvis were performed following the IV administration of 94 cc of Optiray, A dose lowering technique was utilized adhering to the principles of ALARA. COMPARISON STUDY: 11/14/2023 FINDINGS: Cardiomegaly. Median sternotomy. Trace pleural effusions. Emphysema with mild bibasilar atelectasis. Mild upper abdominal pneumoperitoneum. Unremarkable spleen, moderately atrophic pancreas and adrenal glands. Cholecystectomy with likely postsurgical biliary ductal dilation. Patent portal vein. No pneumatosis or portal venous gas identified. There are a few scattered hypodense foci of the kidneys measuring up to 2.2 cm on the right suggestive of cysts. No hydronephrosis. Unremarkable urinary bladder. Atherosclerosis of the aorta without aneurysm. No lymphadenopathy. No bowel obstruction. Colonic diverticulosis with a catheter. Diverticulitis of the descending colon and descending sigmoid junction. There is adjacent inflammatory stranding with peripheral enhancing air and fluid filled collection within the left paracolic gutter measuring 1.3 x 1.6 cm on image 195 series 3 extending for a length of approximately 10 cm. No drainable fluid collections. No CT evidence of acute appendicitis. Air and fluid-filled loops of small bowel measure up to approximately 3.3 cm suggestive of reactive ileus. No high-grade small bowel obstruction. 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 No acute fracture. IMPRESSION: 1. Acute perforated diverticulitis of the distal descending colon/descending sigmoid junction with pneumoperitoneum. 2. Pericolic fluid collection compatible with developing abscess which is not drainable secondary to small size in AP and transverse dimensions. 3. No bowel obstruction. 4. Pulmonary emphysema with trace pleural effusions. 5. Cholecystectomy. ACT 112: Negative or not required by law. The above report was generated using voice recognition software. It may contain grammatical, syntax or spelling errors. Electronically signed by: Humble Chowdhury M.D. 06/20/2024 12:23 PM Chest X-Ray 06/20/24 10:16 SINGLE VIEW CHEST CLINICAL HISTORY: Generalized abdominal pain. FINDINGS: 2 AP, portable, upright chest radiographs are compared to study dated 05/14/2024 and correlated with chest CT dated 11/14/2023. The the patient is status post midline sternotomy and cardiac valve surgery. The heart is enlarged but noting atherosclerotic calcification of the thoracic aorta. The pulmonary vasculature is noncongested. Emphysema and chronic interstitial thickening is similar to previous. Scarring/atelectasis is noted at both lung bases. No air space consolidation or large pleural effusion is identified. No pneumothorax is seen. The bony thorax is grossly intact. A right shoulder arthroplasty is in place. Arthritic change is seen in the left shoulder. Cholecystectomy clips are noted in the right upper quadrant. IMPRESSION: Cardiomegaly and emphysema with no active disease in the chest. ACT 112: Negative or not required by law. Electronically signed by: Rc Hitchcock M.D. 06/20/2024 11:47 AM Code Status & VTE Plan Code Status Full code VTE Prophylaxis Plan VTE Prophylaxis will be ordered: Yes Supervising Physician Co-Signing Physician Notes Patient seen and examined, chart reviewed, case discussed with Raoul Dow PA-C and I agree with the assessment and plan as above except as otherwise noted Labs and images reviewed Wild is a 68-year-old male with a past medical history of COPD, CAD, right bundle branch block, HU/MDD/bipolar disease, hypertension, hyperlipidemia was recommended for admission for complicated diverticulitis. He presented with severe abdominal discomfort around his bellybutton and groin progressive over the last 3 days with intermittent fevers at home. He does not have leukoc ytosis; CTA/P shows acute perforated diverticulitis, a small amount of pneumoperitoneum, and suspected ileus. Patient has a new mild transaminitis, post cholecystectomy status is noted no portal venous gas or hepatic abnormalities are seen. Was recommended for stat surgical consultation based on progressive pain and mild pneumoperitoneum. No drainable abscess is seen on the CT. Received empiric Unasyn while in the ER, recommended to be transition to Zosyn until clinically improving given small amount of abscess and perforation. He is not hypotensive or tachycardic at the bedside. Abdomen is with focal tenderness in the left lower quadrant there is no rigidity or rebound/involuntary guarding. Discussed with surgery at the bedside. Agree with medical management for this time we will continue to follow given no white count and localized abdominal exam. Will reevaluate for additional imaging as needed. Agree with assessment and management as above. PG Care Time/CCT Total # of Minutes Spent Total Time Spent with Patient: Total time spent is greater than 50% in coordination of care (as documented) at patient's floor/unit and/or counseling patient: Coding [place] [address] INT INP/OBS CARE 3/75MIN Patient Type Established History Comprehensive Exam Comprehensive Medical Decision Making High Complexity Diagnoses Perforation of sigmoid colon due to diverticulitis K57.20 Transaminitis R74.01 Pulmonary emphysema, unspecified emphysema type J43.9 COPD type: emphysema Emphysema type: unspecified CAD (coronary artery disease) I25.10 (3) COPD (chronic obstructive pulmonary disease) COPD type: emphysema Emphysema type: unspecified Qualified Code(s): J43.9 - Emphysema, unspecified
[2024-06-20] MEDS: ONDANSETRON INJ 2 MG/ML 2 ML VIAL IV STA (13:42)
[2024-06-20] MEDS: MoRPHine SULFATE 4 MG/ML 1 ML CARP\\VIAL IV STA ×2 (13:44→16:17)
--- NOTE | 2024-06-20 14:07 | Surgery Consultation ---
Date of Consultation June 20, 2024 Assessment & Plan (1) Perforation of sigmoid colon due to diverticulitis: Currently no urgent or emergent indications for surgical intervention. Agree with admission and make him n.p.o. except for ice chips. IV antibiotics. Hold Plavix until we are sure surgery will not be indicated. We will monitor him closely. We may or may not need repeat CT scan in 2 or 3 days. He would be a considerable surgical risk considering his comorbidities. Surgery would be a last resort. We discussed all of this with the admitting team. We will follow along closely during his admission. (2) Acute exacerbation of chronic obstructive pulmonary disease: (3) Bipolar affective disorder in remission: (4) RBBB (right bundle branch block with left anterior fascicular block): (5) CAD (coronary artery disease): (6) COPD (chronic obstructive pulmonary disease): History of Present Illness History of Present Illness Wild is a pleasant 68-year-old male who is here today for abdominal pain over the past 4 days. It has slowly increased in intensity. It is localized to the left lower quadrant. He had 1 low-grade fever. No nausea or vomiting. Allergies Allergy/AdvReac Type Severity Reaction Status Date / Time gluten Allergy Severe celiac Verified 06/05/24 09:03 disease wheat Allergy Severe celiac Verified 06/05/24 09:03 disease NSAIDS (Non-Steroidal Allergy Intermediate Hives Verified 06/05/24 09:03 Anti-Inflamma aspirin Allergy Mild RASH,HIVES Verified 06/05/24 09:03 lisinopril Allergy Mild Hives Verified 06/05/24 09:03 naproxen [From Naprosyn] Allergy Mild Hives Verified 06/05/24 09:03 Home Medications Medication Instructions Recorded Confirmed Type tiotropium bromide 18 mcg capsule 1 cap inhalation QAM 30 days #30 02/03/18 06/20/24 History with inhalation device (Spiriva caps with HandiHaler) albuterol sulfate 90 mcg/actuation 2 puff inhalation Q6H PRN 01/16/19 06/20/24 History aerosol inhaler (Proventil HFA) Shortness Of Breath atorvastatin 80 mg tablet 80 mg PO QAM 01/16/19 06/20/24 History theophylline 400 mg 400 mg PO BID 01/16/19 06/20/24 History tablet,extended release 24 hr ferrous sulfate 325 mg (65 mg 325 mg PO Q OTHER DAY 12/11/20 06/20/24 History iron) tablet clopidogrel 75 mg tablet (Plavix) 75 mg PO QAM 04/08/22 06/20/24 History clobetasol 0.05 % topical cream 1 applic topical DAILY PRN Rash 11/14/23 06/20/24 History ezetimibe 10 mg tablet (Zetia) 10 mg PO HS 11/14/23 06/20/24 History folic acid 1 mg tablet 1 mg PO DAILY 11/14/23 06/20/24 History rivastigmine 4.6 mg/24 hour 1 patch transdermal DAILY 11/14/23 06/20/24 History transdermal patch ketotifen fumarate 0.025 % (0.035 1 drp ophthalmic (eye) BID PRN Eye 12/13/23 06/20/24 History %) eye drops Irritation chlorthalidone 25 mg tablet 25 mg PO QPM 01/03/24 06/20/24 History calcium 315 mg-vitamin D3 250 1 tab PO BID 02/28/24 06/20/24 History unit-phytosterols 200 mg tablet carbamide peroxide 6.5 % ear drops 5 drp otic (ear) DAILY ear wax 02/28/24 06/20/24 History cholecalciferol (vitamin D3) 25 50 mcg PO QAM 02/28/24 06/20/24 History mcg (1,000 unit) tablet famotidine 20 mg tablet 20 mg PO QAM 02/28/24 06/20/24 History pantoprazole 40 mg tablet,delayed 40 mg PO QAM 02/28/24 06/20/24 History release teriparatide 20 mcg/dose (620 20 mcg subcut QAM 02/28/24 06/20/24 History mcg/2.48 mL) subcutaneous pen injector fluticasone 500 mcg-salmeterol 50 1 inh inhalation BID 04/06/24 06/20/24 History mcg/dose blistr powdr for inhalation food supplemt, lactose-reduced 1 ea PO QAM 04/06/24 06/20/24 History (Ensure oral liquid) ketoconazole 2 % shampoo 1 applic topical Q OTHER DAY 04/06/24 06/20/24 History tamsulosin 0.4 mg capsule 0.4 mg PO HS 04/06/24 06/20/24 History carvedilol 6.25 mg tablet 6.25 mg PO BID #60 tabs 04/08/24 06/20/24 Rx divalproex 250 mg tablet,extended 250 mg PO BID #60 tabs 04/08/24 06/20/24 Rx release 24 hr olanzapine 10 mg tablet 10 mg PO HS #30 tabs 04/08/24 06/20/24 Rx prednisone 10 mg tablet 10 mg PO DIRECTED #30 tabs 05/15/24 06/20/24 Rx Patient History Medical History Pulmonary nodule 1 cm or greater in diameter Restless leg RBBB (right bundle branch block with left anterior fascicular block) Heart disease GERD (gastroesophageal reflux disease) PATTON (dyspnea on exertion) CAD (coronary artery disease) Hx of colonic polyps Dementia Osteoporosis Bipolar affective disorder in remission Hx of deep venous thrombosis (2018) Hx pulmonary embolism (2009) Manic episode (03/2024) Insomnia On anticoagulant therapy Hx of non-ST elevation myocardial infarction (NSTEMI) (2019) History of COVID-19 (2021) Celiac disease On home oxygen therapy PVD (peripheral vascular disease) Anxiety and depression Immunoglobulin G deficiency Hearing deficit Aortic valve defect Lung nodules Sleep apnea Chronic obstructive pulmonary disease Asthma Surgical History Hx of colonoscopy with polypectomy Status post trigger finger release History of transesophageal echocardiography (MELISSA) (~08/16/19) History of cardiac cath (~05/15/19) History of vascular access device History of umbilical hernia repair History of right inguinal hernia repair History of cholecystectomy History of esophagogastroduodenoscopy (EGD) History of phacoemulsification of cataract of both eyes with intraocular lens implantation History of angioplasty History of aortic valve replacement (2009) History of bronchoscopy Family History Father Family history of diabetes mellitus Other No family history of adverse response to anesthesia Social History Smoking Status: Never smoker Tobacco Type: Cigarettes Second Hand Exposure: No; Do You Dip or Chew Tobacco: No; Hx Alcohol Use: No Hx Substance Use: Yes Substance Use Type Other:: medical marijuana Preferred Language: [place] Citizen Communication Ability: Effective 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 Beliefs That Will Affect Care: None marital status: Current Living Situation: Spouse Current Living Situation Comment: Lives with and son Feels Safe at Home: Yes Gender Identity: Male Assistive Devices: Oxygen - at Night Review of Systems Review of Systems: All systems reviewed & are unremarkable except as noted in HPI & below Physical Exam Constitutional: WD/WN, vitals as above no acute distress and not ill appearing Eyes: PERRL, conjunctivae normal, anicteric sclerae EOM intact bilaterally ENMT: external ear and nose normal, oropharynx normal Ears: no hearing impairment Neck: trachea midline, no thyromegaly Respiratory: normal respiratory effort; no respiratory distress and does not use accessory muscles Cardiovascular: Regular rate and rhythm. Positive valve murmur Gastrointestinal (Abdomen): Soft. Positive left lower quadrant tenderness. No diffuse peritonitis Skin: no rashes, warm and dry Psychiatric: Orientation: alert, oriented x 3 and cooperative Results & Data Vital Signs (Past 12 Hours) Vital Signs Temp Pulse Pulse Resp BP BP Pulse Ox 06/20/24 12:56 36.8 C 06/20/24 12:00 80 17 146/71 H 97 06/20/24 10:46 79 17 145/74 H 100 06/20/24 10:44 79 18 100 06/20/24 10:02 37.1 C 85 14 131/81 96 O2 Del Method O2 Flow Rate 06/20/24 12:56 06/20/24 12:00 Nasal Cannula 2 06/20/24 10:46 Nasal Cannula 2 06/20/24 10:44 Nasal Cannula 2 06/20/24 10:02 Room Air PG Care Time/CCT Total # of Minutes Spent Total Time Spent with Patient: Total time spent is greater than 50% in coordination of care (as documented) at patient's floor/unit and/or counseling patient: Coding Level of Care Code 59247 INT INP/OBS CARE Diagnoses Perforation of sigmoid colon due to diverticulitis K57.20 Acute exacerbation of chronic obstructive pulmonary disease J44.1 Bipolar affective disorder in remission F31.70 RBBB (right bundle branch block with left anterior fascicular block) I45.2 CAD (coronary artery disease) I25.10 Pulmonary emphysema, unspecified emphysema type J43.9 COPD type: emphysema Emphysema type: unspecified (6) COPD (chronic obstructive pulmonary disease) COPD type: emphysema Emphysema type: unspecified Qualified Code(s): J43.9 - Emphysema, unspecified
[2024-06-20] MEDS: predniSONE 20 MG TAB PO STA (15:01)
--- NOTE | 2024-06-20 15:59 | Emergency Department Note ---
Impression & Plan Diverticulitis large intestine ED Provider Note CHIEF COMPLAINT: Abdominal pain HISTORY OF PRESENT ILLNESS: This 68-year-old male patient past medical history of diverticulosis, COPD, bipolar disorder, right bundle branch block, CAD, COPD, dementia, celiac disease, GERD, hypertension, hyperlipidemia, DVT, AVR presents to the emergency department with complaints of left lower quadrant abdominal pain for the last 3 days. The patient states it has been a bit progressive. Started sort of periumbilically but now is more specific. REVIEW OF SYSTEMS: A review of systems was performed with positives and pertinent negatives listed in the history of present illness. 10 systems were reviewed and are otherwise negative. ALLERGIES: see below MEDICATIONS: see below PMH: see below SOCIAL HISTORY: see below DDx: Diverticulitis, constipation, intra-abdominal abscess, perforation, bowel obstruction, kidney stone, UTI/pyelonephritis among others. PHYSICAL EXAM: Vital signs reviewed. General: Generally well-appearing 68-year-old male, in some discomfort. HEENT: No scleral icterus, PERRLA, neck supple. Moist mucous membranes Cardiovascular: Regular rate and rhythm, no extra sounds. Pulmonary: Clear to auscultation bilaterally, normal work of breathing. Abdomen: Soft, diffuse tenderness with positive rebound in the left lower quadrant, nondistended, positive bowel sounds. Musculoskeletal: Atraumatic, no peripheral edema. Neurologic: Patient awake alert and oriented x 3, speech is clear Skin: Warm, dry, no rash EMERGENCY DEPARTMENT COURSE/MDM: This patient was evaluated and appeared to be in no significant distress. IV access was obtained and laboratory work was drawn. The patient was hydrated with normal saline solution, given IV morphine and Zofran for his discomfort. Patient's laboratory work reveals a normal WBC. CT imaging of the abdomen pelvis is consistent with perforated diverticulitis with pneumoperitoneum. There is evidence of a developing abscess which is not amenable to draining at this point. Patient was medicated with 3 g of IV Unasyn. I did discuss the case with the on-call hospitalist, Dr. Isaacs as well as general surgery. Patient will be evaluated by the hospitalist for admission and further management. Surgery will consult. Patient is aware of the plan and agrees. MONITORING: An order for cardiac monitoring was placed and the patient is noted to be in a NSR at 75 beats per minute. RADIOLOGY: Chest x-ray to my interpretation reveals cardiomegaly with emphysematous changes, no focal lung consolidation. CT imaging of the abdomen pelvis per radiology: IMPRESSION: 1. Acute perforated diverticulitis of the distal descending colon/descending sigmoid junction with pneumoperitoneum. 2. Pericolic fluid collection compatible with developing abscess which is not drainable secondary to small size in AP and transverse dimensions. 3. No bowel obstruction. 4. Pulmonary emphysema with trace pleural effusions. 5. Cholecystectomy. Disposition: Admission Past Med/Surg History Problem List (Updated 06/22/24 @ 09:13 by Araceli Jha MD) Diverticulitis large intestine (Acute) Transaminitis Perforation of sigmoid colon due to diverticulitis Acute exacerbation of chronic obstructive pulmonary disease (Acute) Nausea and vomiting Change in bowel habits Bipolar affective disorder in remission RBBB (right bundle branch block with left anterior fascicular block) CAD (coronary artery disease) Domestic problems (Acute) Anxiety (Acute) COPD (chronic obstructive pulmonary disease) Osteoporosis History of colon polyps Gastritis Elevated troponin (Acute) Acute hypokalemia (Acute) Intractable nausea and vomiting (Acute) S/P trigger finger release Dementia stage 3 Trigger finger, right ring finger Trigger thumb of right hand AMS (altered mental status) Encounter for pre-operative examination COVID (Acute) Other instability, left elbow Rotator cuff tear, left Celiac disease Encounter for pre-operative examination Abnormal EKG (Acute) Hypercalcemia (Acute) Vomiting (Acute) Acute duodenitis (Acute) COPD with acute exacerbation (Acute) Restless leg Anemia (Acute) Chronic pain PATTON (dyspnea on exertion) Status post reverse arthroplasty of right shoulder (~04/2020) BPH (benign prostatic hyperplasia) GERD (gastroesophageal reflux disease) Well controlled and stable Hypertension Hyperlipidemia Hx of venous thrombosis and embolism (Acute) Bipolar disorder, unspecified (Acute) Weight loss Pulmonary nodule Hemostasis disorder (Acute) COPD (chronic obstructive pulmonary disease) (Acute) COPD (chronic obstructive pulmonary disease) (Chronic) Heart disease (Chronic) Severe recurrent major depression without psychotic features (Acute 04/19/11) Acute exacerbation of chronic obstructive airways disease (Acute 02/07/11) Generalized anxiety disorder (Chronic 03/31/11) Medical History Pulmonary nodule 1 cm or greater in diameter Restless leg RBBB (right bundle branch block with left anterior fascicular block) Heart disease GERD (gastroesophageal reflux disease) PATTON (dyspnea on exertion) CAD (coronary artery disease) Hx of colonic polyps Dementia per chart, pt. was able to complete PAT interview with ease Osteoporosis Bipolar affective disorder in remission Hx of deep venous thrombosis (2018) rightT ARM 2018 (TREATED WITH ELIQUIS)- on AC x 6 months- then d/c'ed- no issues since. Did follow with heme- no known clotting issues - felt secondary to A-port- A port removed. Hx pulmonary embolism (2009) Manic episode (03/2024) reports manic depressive at beginning of march, resolved Insomnia On anticoagulant therapy plavix daily Hx of non-ST elevation myocardial infarction (NSTEMI) (2019) "debateable" History of COVID-19 (2021) diagnosed 02/04/22 via home test only--cough, fatigue, muscle aches, runny nose--no symptoms now Celiac disease On home oxygen therapy 2L prn PVD (peripheral vascular disease) S/p angioplasties. On Plavix- cannot tolerate ASA Anxiety and depression Immunoglobulin G deficiency infusions monthly at [facility] Hearing deficit b/l perez's Aortic valve defect Had AVR secondary to AR per patient "HAS MINIMAL LEAKING FROM PROSTHETIC COW AORTIC VALVE" Lung nodules Following with pulm Sleep apnea cpap with 2L at Chronic obstructive pulmonary disease stage 4 COPD, on prednisone maintenance program, currently going thru eval for lung transplant list Asthma Well controlled - inhalers daily and prn--nebulizer prn Surgical History Hx of colonoscopy with polypectomy Status post trigger finger release 05/2023 @ [facility] [place]ring finger History of transesophageal echocardiography (MELISSA) (~08/16/19) History of cardiac cath (~05/15/19) @ [facility] with Dr. Ji, no stents, no KS, History of vascular access device infuasport placed and removed in past for IGG History of umbilical hernia repair History of right inguinal hernia repair History of cholecystectomy History of esophagogastroduodenoscopy (EGD) History of phacoemulsification of cataract of both eyes with intraocular lens implantation History of angioplasty LEs and hand History of aortic valve replacement (2009) 2009 @ [facility] -follows with Dr. Ji in [place] History of bronchoscopy Family History Father Family history of diabetes mellitus Other No family history of adverse response to anesthesia Social History Smoking Status: Former smoker Tobacco Type: Cigarettes Second Hand Exposure: No; Do You Dip or Chew Tobacco: No; Hx Alcohol Use: No Hx Substance Use: Yes Substance Use Type Other:: gummies Preferred Language: Turkish Communication Ability: Effective Clinical Trials Nurse Required: No Beliefs That Will Affect Care: None marital status: Current Living Situation: Spouse Current Living Situation Comment: Lives with and son Feels Safe at Home: Yes Gender Identity: Male Assistive Devices: Oxygen - at Night Allergies Allergies Allergy/AdvReac Type Severity Reaction Status Date / Time gluten Allergy Severe celiac Verified 06/05/24 09:03 disease wheat Allergy Severe celiac Verified 06/05/24 09:03 disease NSAIDS (Non-Steroidal Allergy Intermediate Hives Verified 06/05/24 09:03 Anti-Inflamma aspirin Allergy Mild RASH,HIVES Verified 06/05/24 09:03 lisinopril Allergy Mild Hives Verified 06/05/24 09:03 naproxen [From Naprosyn] Allergy Mild Hives Verified 06/05/24 09:03 Home Meds Home Medications Medication Instructions Recorded Confirmed tiotropium bromide 18 mcg capsule 1 cap inhalation QAM 30 days #30 02/03/18 06/20/24 with inhalation device (Spiriva caps with HandiHaler) albuterol sulfate 90 mcg/actuation 2 puff inhalation Q6H PRN 01/16/19 06/20/24 aerosol inhaler (Proventil HFA) Shortness Of Breath atorvastatin 80 mg tablet 80 mg PO QAM 01/16/19 06/20/24 theophylline 400 mg 400 mg PO BID 01/16/19 06/20/24 tablet,extended release 24 hr ferrous sulfate 325 mg (65 mg 325 mg PO Q OTHER DAY 12/11/20 06/20/24 iron) tablet clopidogrel 75 mg tablet (Plavix) 75 mg PO QAM 04/08/22 06/20/24 clobetasol 0.05 % topical cream 1 applic topical DAILY PRN Rash 11/14/23 06/20/24 ezetimibe 10 mg tablet (Zetia) 10 mg PO HS 11/14/23 06/20/24 folic acid 1 mg tablet 1 mg PO DAILY 11/14/23 06/20/24 rivastigmine 4.6 mg/24 hour 1 patch transdermal DAILY 11/14/23 06/20/24 transdermal patch ketotifen fumarate 0.025 % (0.035 1 drp ophthalmic (eye) BID PRN Eye 12/13/23 06/20/24 %) eye drops Irritation chlorthalidone 25 mg tablet 25 mg PO QPM 01/03/24 06/20/24 calcium 315 mg-vitamin D3 250 1 tab PO BID 02/28/24 06/20/24 unit-phytosterols 200 mg tablet carbamide peroxide 6.5 % ear drops 5 drp otic (ear) DAILY ear wax 02/28/24 06/20/24 cholecalciferol (vitamin D3) 25 50 mcg PO QAM 02/28/24 06/20/24 mcg (1,000 unit) tablet famotidine 20 mg tablet 20 mg PO QAM 02/28/24 06/20/24 pantoprazole 40 mg tablet,delayed 40 mg PO QAM 02/28/24 06/20/24 release teriparatide 20 mcg/dose (620 20 mcg subcut QAM 02/28/24 06/20/24 mcg/2.48 mL) subcutaneous pen injector fluticasone 500 mcg-salmeterol 50 1 inh inhalation BID 04/06/24 06/20/24 mcg/dose blistr powdr for inhalation food supplemt, lactose-reduced 1 ea PO QAM 04/06/24 06/20/24 (Ensure oral liquid) ketoconazole 2 % shampoo 1 applic topical Q OTHER DAY 04/06/24 06/20/24 tamsulosin 0.4 mg capsule 0.4 mg PO HS 04/06/24 06/20/24 Previous Rx's Medication Instructions Recorded carvedilol 6.25 mg tablet 6.25 mg PO BID #60 tabs 04/08/24 divalproex 250 mg tablet,extended 250 mg PO BID #60 tabs 04/08/24 release 24 hr olanzapine 10 mg tablet 10 mg PO HS #30 tabs 04/08/24 prednisone 10 mg tablet 10 mg PO DIRECTED #30 tabs 05/15/24 Results & Data (ED) Vital Signs Vital Signs - 24 hr 06/20/24 10:02 06/20/24 10:44 06/20/24 10:46 Temperature 37.1 C Temperature Source Temporal Artery Scan Pulse Rate 85 79 Pulse Rate [Right Finger] 79 Pulse Rhythm Regular Pulse Rhythm [Right Finger] Regular Pulse Strength [Right Finger] Normal Respiratory Rate 14 18 17 Respiratory Effort / Characteristics Non-Labored Spontaneous Respiratory Depth Normal Normal Blood Pressure 131/81 Blood Pressure [Left Arm] 145/74 H Blood Pressure Mean 97 Blood Pressure Mean [Left Arm] 97 Blood Pressure Position [Left Arm] Lying Pulse Oximetry 96 100 100 Oxygen Delivery Method Room Air Nasal Cannula Nasal Cannula Oxygen Flow Rate 2 2 Sepsis Recent Fever Within 48 Hours Yes Sepsis New/Unexplained Change in Mental Status No Sepsis Action Taken by Nursing No Action Required 06/20/24 12:00 06/20/24 12:56 06/20/24 14:00 Temperature 36.8 C Temperature Source Oral Pulse Rate Pulse Rate [Right Finger] 80 81 Pulse Rhythm Pulse Rhythm [Right Finger] Regular Pulse Strength [Right Finger] Normal Respiratory Rate 17 18 Respiratory Effort / Characteristics Non-Labored Spontaneous Non-Labored Spontaneous Respiratory Depth Normal Normal Blood Pressure Blood Pressure [Left Arm] 146/71 H 146/87 H Blood Pressure Mean Blood Pressure Mean [Left Arm] 96 106 Blood Pressure Position [Left Arm] Lying Semi-fowlers Pulse Oximetry 97 100 Oxygen Delivery Method Nasal Cannula Nasal Cannula Oxygen Flow Rate 2 2 Sepsis Recent Fever Within 48 Hours Sepsis New/Unexplained Change in Mental Status Sepsis Action Taken by Nursing 06/20/24 15:17 06/20/24 15:53 Temperature 37.3 C Temperature Source Oral Pulse Rate 86 Pulse Rate [Right Finger] 84 Pulse Rhythm Pulse Rhythm [Right Finger] Pulse Strength [Right Finger] Respiratory Rate 19 Respiratory Effort / Characteristics Non-Labored Spontaneous Respiratory Depth Normal Blood Pressure Blood Pressure [Left Arm] 134/70 Blood Pressure Mean Blood Pressure Mean [Left Arm] 91 Blood Pressure Position [Left Arm] Pulse Oximetry 98 Oxygen Delivery Method Room Air Oxygen Flow Rate Sepsis Recent Fever Within 48 Hours Sepsis New/Unexplained Change in Mental Status Sepsis Action Taken by [facility] Medications Current Medication List: was personally reviewed by me Laboratory Data Attestation: I reviewed the patient's lab results. 06/22/24 05:42 06/22/24 05:42 Lab Results 06/20/24 Range/Units 10:38 WBC 7.84 (4.8-10.8) K/ul RBC 4.09 L (4.70-6.10) M/uL Hgb 12.7 L (14.0-18.0) g/dl Hct 37.3 L (42.0-52.0) % MCV 91.2 (80.0-100.0) fL MCH 31.1 (25.0-34.0) pg MCHC 34.0 (32.0-36.0) g/dL RDW Std Deviation 46.6 H (36.4-46.3) fL RDW Coeff of Rosario 13.9 (11.5-14.5) % Plt Count 172 (130-400) K/uL MPV 9.6 (9.4-12.4) fL Immature Gran % (Auto) 0.6 % Neut % (Auto) 88.4 % Lymph % (Auto) 5.4 % [place] % (Auto) 4.6 % Eos % (Auto) 0.6 % Baso % (Auto) 0.4 % Neut # (Auto) 6.93 H (1.40-6.50) K/uL Lymph # (Auto) 0.42 L (1.20-3.40) K/uL [place] # (Auto) 0.36 (0.11-0.59) K/uL Eos # (Auto) 0.05 (0.00-0.50) K/uL Baso # (Auto) 0.03 (0.00-0.20) K/uL Immature Gran # (Auto) 0.05 (0.01-0.20) K/uL Sodium 139 (136-145) mmol/L Potassium 4.3 (3.5-5.1) mmol/L Chloride 106 (98-107) mmol/L Carbon Dioxide 28 (21-32) mmol/L Anion Gap 5 (3-11) BUN 21 (6-23) mg/dl Creatinine 1.01 (0.6-1.4) mg/dl Est Cr Clr Drug Dosing Not Reportable eGFR 80.50 BUN/Creatinine Ratio 20.8 H (10-20) Glucose 96 (70-99(Fasting)) mg/dl Calcium 8.5 L (8.6-10.3) mg/dl Total Bilirubin 1.3 H (0.2-1.0) mg/dl AST 64 H (13-39) U/L ALT 62 H (7-52) U/L Alkaline Phosphatase 153 H (34-104) U/L Total Protein 7.0 (6.0-8.3) gm/dl Albumin 3.6 (3.4-5.0) gm/dl Globulin 3.4 (2.5-4.0) gm/dl Albumin/Globulin Ratio 1.1 (0.9-2) Lipase 12 (11-82) U/L Urine Color Yellow Urine Appearance Clear (Clear) Urine pH 8.5 H (4.5-7.5) Ur Specific [place] 1.025 (1.000-1.030) Urine Protein 1+ H (Negative) Urine Glucose (UA) Negative (Negative) Urine Ketones Negative (Negative) Urine Blood Negative (Negative) Urine Nitrite Negative (Negative) Urine Bilirubin Negative (Negative) Urine Urobilinogen Negative (Negative) Ur Leukocyte Esterase Negative (Negative) Urine WBC (Auto) 0-5 (0-5) /hpf Urine RBC (Auto) 0-2 (0-2) /hpf U Hyaline Cast (Auto) 0-2 (0-2) /lpf U Epithel Cells (Auto) 0-2 (0-2) /hpf Urine Bacteria (Auto) None Seen (None Seen) Administered Medications Albuterol (Albuterol Hfa 8 Gm Inhaler) 2 puffs INH Q6H PRN PRN Reason: Shortness Of Breath Stop: 07/20/24 17:36 Last Admin: 06/20/24 20:35 Dose: 2 puffs Documented By: ALEXANDRA Carvedilol (Carvedilol 6.25 Mg Tab) 6.25 mg PO BID [facility] Stop: 07/20/24 20:59 Last Admin: 06/21/24 19:53 Dose: 6.25 mg Documented By: Admin: 06/21/24 09:09 Dose: Not Given Documented By: Admin: 06/20/24 21:00 Dose: 6.25 mg Documented By: ALEXANDRA Divalproex Sodium (Divalproex Extended Release 250 Mg Tabcr) 250 mg PO BID [facility] Stop: 07/20/24 20:59 Last Admin: 06/21/24 19:54 Dose: 250 mg Documented By: Admin: 06/21/24 09:09 Dose: Not Given Documented By: Admin: 06/20/24 20:59 Dose: 250 mg Documented By: ALEXANDRA Fluticasone/Vilanterol (Fluticasone/Vilanterol 100/25mcg 14 Puffs/Inhaler) 1 puffs INH DAILY [facility] Stop: 07/21/24 08:59 Last Admin: 06/21/24 09:13 Dose: 1 puffs Documented By: HOLLAND Piperacillin Sod/Tazobactam Sod (Zosyn) 4.5 gm in 100 mls @ 25 mls/hr IV Q8H [facility]; Protocol Stop: 07/01/24 00:00 Last Infusion: 06/22/24 04:36 Dose: Infused Documented By: Admin: 06/22/24 00:30 Dose: 25 mls/hr Documented By: Infusion: 06/21/24 19:55 Dose: Infused Documented By: Admin: 06/21/24 16:05 Dose: 25 mls/hr Documented By: Infusion: 06/21/24 13:43 Dose: Infused Documented By: Admin: 06/21/24 09:13 Dose: 25 mls/hr Documented By: Infusion: 06/21/24 05:45 Dose: Infused Documented By: Admin: 06/21/24 01:40 Dose: 25 mls/hr Documented By: WESLEY Pantoprazole Sodium (Protonix) 40 mg in 10 mls @ 5 mls/min IV DAILY [facility] Stop: 07/21/24 08:59 Last Admin: 06/21/24 09:14 Dose: 5 mls/min Documented By: HOLLAND Famotidine (Pepcid 20mg Iv Push) 20 mg in 5 mls @ 2.5 mls/min IV QAM [facility] Stop: 07/21/24 08:59 Last Admin: 06/21/24 09:14 Dose: 2.5 mls/min Documented By: HOLLAND Miscellaneous (Remove Rivastigmine Patch) 1 each N/A DAILY@0859 [facility] Stop: 07/21/24 14:44 Last Admin: 06/21/24 16:05 Dose: Not Given Documented By: BRIAN Morphine Sulfate (Morphine Sulfate 2 Mg/Ml Carp) 2 mg IV Q2H PRN PRN Reason: Moderate Pain (4,5,6) on NRS Stop: 07/04/24 17:36 Last Admin: 06/21/24 13:15 Dose: 2 mg Documented By: Admin: 06/21/24 05:00 Dose: 2 mg Documented By: LYNDON Morphine Sulfate (Morphine Sulfate 4 Mg/Ml 1 Ml Carp\\Vial) 4 mg IV Q2H PRN PRN Reason: Severe Pain (7,8,9,10) on NRS Stop: 07/04/24 17:36 Last Admin: 06/22/24 05:56 Dose: 4 mg Documented By: Admin: 06/21/24 21:50 Dose: 4 mg Documented By: Admin: 06/21/24 19:46 Dose: 4 mg Documented By: Admin: 06/21/24 16:25 Dose: 4 mg Documented By: Admin: 06/21/24 08:32 Dose: 4 mg Documented By: Admin: 06/21/24 01:42 Dose: 4 mg Documented By: Admin: 06/20/24 20:35 Dose: 4 mg Documented By: ALEXANDRA Olanzapine (Olanzapine 10 Mg Tab) 10 mg PO HS JERRY Stop: 07/20/24 20:59 Last Admin: 06/21/24 19:54 Dose: 10 mg Documented By: Admin: 06/20/24 20:59 Dose: 10 mg Documented By: ALEXANDRA Rivastigmine (Rivastigmine 4.6 Mg/24 Hour Patch 24 Hour) 1 patch TD DAILY JERRY Stop: 07/21/24 14:59 Last Admin: 06/21/24 16:04 Dose: 1 patch Documented By: BRIAN Umeclidinium [place] (Umeclidinium [place] 62.5mcg/Blister 7 Puffs/Inhaler) 1 puffs INH DAILY JERRY Stop: 07/21/24 08:59 Last Admin: 06/21/24 09:13 Dose: 1 puffs Documented By: HOLLAND Discontinued Medications Ampicillin Sodium/Sulbactam Sodium (Unasyn) 3,000 mg in 100 mls @ 200 mls/hr IV NOW STA Stop: 06/20/24 12:35 Last Infusion: 06/20/24 16:04 Dose: Infused Documented By: Admin: 06/20/24 12:53 Dose: 200 mls/hr Documented By: AMS Piperacillin Sod/Tazobactam Sod (Zosyn) 4.5 gm in 100 mls @ 200 mls/hr IV ONE ONE; Protocol Stop: 06/20/24 19:29 Last Infusion: 06/20/24 19:33 Dose: Infused Documented By: Admin: 06/20/24 18:57 Dose: 200 mls/hr Documented By: ALEXANDRA Ioversol (Optiray 320 100ml) 94 ml IV ONCE ONE Stop: 06/20/24 11:29 Last Admin: 06/20/24 11:29 Dose: 94 ml Documented By: BRYNN Miscellaneous (Rivastigmine 4.6 Mg/24 Hour Patch 24 Hour - Order Awaiting Action) 1 each N/A QS JERRY Stop: 07/21/24 00:00 Last Admin: 06/21/24 08:33 Dose: Not Given Documented By: Admin: 06/21/24 01:31 Dose: Not Given Documented By: WESLEY Morphine Sulfate (Morphine Sulfate 4 Mg/Ml 1 Ml Carp\\Vial) 4 mg IV NOW STA Stop: 06/20/24 13:11 Last Admin: 06/20/24 13:44 Dose: 4 mg Documented By: SHANIQUA Morphine Sulfate (Morphine Sulfate 4 Mg/Ml 1 Ml Carp\\Vial) 4 mg IV NOW STA Stop: 06/20/24 16:14 Last Admin: 06/20/24 16:17 Dose: 4 mg Documented By: ALEXANDRA Ondansetron HCl (Ondansetron Inj 2 Mg/Ml 2 Ml Vial) 4 mg IV NOW STA Stop: 06/20/24 13:11 Last Admin: 06/20/24 13:42 Dose: 4 mg Documented By: SHANIQUA Prednisone (Prednisone 20 Mg Tab) 20 mg PO NOW STA Stop: 06/20/24 14:22 Last Admin: 06/20/24 15:01 Dose: 20 mg Documented By: VALERIA Prednisone (Prednisone 10 Mg Tablet) 20 mg PO DAILY JERRY Stop: 06/21/24 09:01 Last Admin: 06/21/24 09:10 Dose: Not Given Documented By: HOLLAND Imaging Data Radiologist's Impression: Abdomen/Pelvis CT 06/20/24 10:[address] WITH IV CONTRAST CT DOSE: 1076.21 mGy.cm HISTORY: Acute right lower quadrant abdominal pain RLQ abd pain TECHNIQUE: Multiaxial CT images of the abdomen and pelvis were performed following the IV administration of 94 cc of Optiray, A dose lowering technique was utilized adhering to the principles of ALARA. COMPARISON STUDY: 11/14/2023 FINDINGS: Cardiomegaly. Median sternotomy. Trace pleural effusions. Emphysema with mild bibasilar atelectasis. Mild upper abdominal pneumoperitoneum. Unremarkable spleen, moderately atrophic pancreas and adrenal glands. Cholecystectomy with likely postsurgical biliary ductal dilation. Patent portal vein. No pneumatosis or portal venous gas identified. There are a few scattered hypodense foci of the kidneys measuring up to 2.2 cm on the right suggestive of cysts. No hydronephrosis. Unremarkable urinary bladder. Atherosclerosis of the aorta without aneurysm. No lymphadenopathy. No bowel obstruction. Colonic diverticulosis with a catheter. Diverticulitis of the descending colon and descending sigmoid junction. There is adjacent inflammatory stranding with peripheral enhancing air and fluid filled collection within the left paracolic gutter measuring 1.3 x 1.6 cm on image 195 series 3 extending for a length of approximately 10 cm. No drainable fluid collections. No CT evidence of acute appendicitis. Air and fluid-filled loops of small bowel measure up to approximately 3.3 cm suggestive of reactive ileus. No high-grade small bowel obstruction. 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 No acute fracture. IMPRESSION: 1. Acute perforated diverticulitis of the distal descending colon/descending sigmoid junction with pneumoperitoneum. 2. Pericolic fluid collection compatible with developing abscess which is not drainable secondary to small size in AP and transverse dimensions. 3. No bowel obstruction. 4. Pulmonary emphysema with trace pleural effusions. 5. Cholecystectomy. ACT 112: Negative or not required by law. The above report was generated using voice recognition software. It may contain grammatical, syntax or spelling errors. Electronically signed by: Humble Chowdhury M.D. 06/20/2024 12:23 PM Chest X-Ray 06/20/24 10:16 SINGLE VIEW CHEST CLINICAL HISTORY: Generalized abdominal pain. FINDINGS: 2 AP, portable, upright chest radiographs are compared to study dated 05/14/2024 and correlated with chest CT dated 11/14/2023. The the patient is status post midline sternotomy and cardiac valve surgery. The heart is enlarged but noting atherosclerotic calcification of the thoracic aorta. The pulmonary vasculature is noncongested. Emphysema and chronic interstitial thickening is similar to previous. Scarring/atelectasis is noted at both lung bases. No airspace consolidation or large pleural effusion is identified. No pneumothorax is seen. The bony thorax is grossly intact. A right shoulder arthroplasty is in place. Arthritic change is seen in the left shoulder. Cholecystectomy clips are noted in the right upper quadrant. IMPRESSION: Cardiomegaly and emphysema with no active disease in the chest. ACT 112: Negative or not required by law. Electronically signed by: Rc Hitchcock M.D. 06/20/2024 11:47 AM Discharge Plan Visit Data Chief Complaint: Abdominal Pain Stated Complaint: LOWER LT ABD PAIN/TUESDAY ED Provider: Araceli Jha Discharge Problem: Diverticulitis large intestine Patient Disposition: Admitted As Inpatient Discharge Instructions Interventions: ED Discharge Assessment Last Done: 06/20/24 17:37 Discharge Problem: Diverticulitis large intestine Qualifiers: Diverticulitis bleeding: without bleeding Diverticulitis complication: with perforation Qualified Code(s): K57.20 - Diverticulitis of large intestine with perforation and abscess without bleeding
[2024-06-20] MEDS ORDERED: ONDANSETRON INJ 2 MG/ML 2 ML VIAL IV PRN (17:37)
[2024-06-20] MEDS: PIPERACILLIN/TAZOBACTAM 4.5 GM/100 ML BAG IV ONE (18:57)
[2024-06-20] MEDS: ALBUTEROL HFA 8 GM INHALER INH PRN (20:35)
[2024-06-20] MEDS: MoRPHine SULFATE 4 MG/ML 1 ML CARP\\VIAL IV PRN (20:35)
[2024-06-20] MEDS: DIVALPROEX EXTENDED RELEASE 250 MG TABCR PO SCH (20:59)
[2024-06-20] MEDS: OLANZapine 10 MG TAB PO SCH (20:59)
[2024-06-20] MEDS: carvediloL 6.25 MG TAB PO SCH (21:00)
[2024-06-21] MEDS: PIPERACILLIN/TAZOBACTAM 4.5 GM/100 ML BAG IV SCH (01:40)
[2024-06-21] MEDS: MoRPHine SULFATE 2 MG/ML CARP IV PRN (05:00)
[2024-06-21 07:41] LABS: Basophils # (auto) 0.02 K/uL (0.00-0.20); Basophils % (auto) 0.3 %; Eosinophils # (auto) 0.01 K/uL (0.00-0.50); Eosinophils % (auto) 0.1 %; Hematocrit (blood only) 35.6 % (42.0-52.0); Hemoglobin 12.3 g/dl (14.0-18.0); Immature Granulocytes # (auto) 0.05 K/uL (0.01-0.20); Immature Granulocytes % (auto) 0.6 %; Lymphocytes # (auto) 0.45 K/uL (1.20-3.40); Lymphocytes % (auto) 5.6 %; Mean Corpuscular Hemoglobin 30.9 pg (25.0-34.0); Mean Corpuscular Hgb Conc 34.6 g/dL (32.0-36.0); Mean Corpuscular Volume 89.4 fL (80.0-100.0); Mean Platelet Volume 9.7 fL (9.4-12.4); Monocytes # (auto) 0.55 K/uL (0.11-0.59); Monocytes % (auto) 6.9 %; Neutrophils # (auto) 6.91 K/uL (1.40-6.50); Neutrophils % (auto) 86.5 %; Platelet Count 162 K/uL (130-400); RDW Coefficient of Variation 13.6 % (11.5-14.5); RDW Standard Deviation 44.7 fL (36.4-46.3); Red Blood Count 3.98 M/uL (4.70-6.10); White Blood Count 7.99 K/ul (4.8-10.8)
[2024-06-21 08:19] LABS: Albumin Globulin Ratio 1.1 (0.9-2); Albumin Level 3.3 gm/dl (3.4-5.0); BUN Creatinine Ratio 21.3 (10-20); Bilirubin,Total 1.3 mg/dl (0.2-1.0); Calcium 8.1 mg/dl (8.6-10.3); Creatinine Clr Calc Pharmacy 77.1 ml/min; Globulin 3.1 gm/dl (2.5-4.0); Potassium 4.4 mmol/L (3.5-5.1); Total Protein 6.4 gm/dl (6.0-8.3)
[2024-06-21] MEDS ORDERED: predniSONE 10 MG TABLET PO SCH (09:00)
[2024-06-21] MEDS: predniSONE 10 MG TABLET PO SCH (09:10)
--- NOTE | 2024-06-21 09:10 | Hospitalist Progress Note ---
Date of Service June 21, 2024 Assessment & Plan (1) Perforation of sigmoid colon due to diverticulitis: Plan: 68-year-old male presenting for LLQ abdominal/right groin pain, worsening since Sunday 06/17. Associated fevers, Tmax 102.1 F; no N/V - No leukocytosis; afebrile - CT A/P: acute perforated diverticulitis of the distal descending colon/descending sigmoid junction with pneumoperitoneum; developing abscess - General Surgery consulting - Continue on Zosyn 4.5 g IV q8h - N.p.o. with exception of following meds: Coreg, Depakote, Zyprexa, prednisone - Continue NPO status as above - IV pain control- morphine - IV antiemetics- Zofran - CBC- H&H 12.3/35.6; CMP- Na 135, calcium 8.1; magnesium 2.0 - +/- repeat CT in 2 to 3 day - Still no indications for Sx management at this time per gen sx Appreciate ongoing gen surg input and recs (2) Transaminitis: Plan: Mildly elevated on arrival - Liver unremarkable on A/P CT - Bili 1.3, unchanged; AST 64-> 31, ALT 62-> 40, alk phos 153-> 131; albumin 3.3 - Continue to trend CMP; resolving (3) COPD (chronic obstructive pulmonary disease): Plan: Stage IV; patient endorses both SOB at rest and with exertion - 2L O2 via NC as needed - Lung transplant candidate for [facility] - Continue prednisone taper; 20mg on 06/21, then 10mg on 06/22 and 06/23. (4) CAD (coronary artery disease): Plan: History of heart valves - Hold Plavix for now in setting of potential surgical intervention; no indication for acute surgery at this time - Will likely hold until next CT results then restart if still no surgical intervention is planned BUT will make final decision based off gen sx recs Plan Disposition: Pending clinical improvement, general surgery recs VTE PPx: SCDs; hold Plavix and chemical DVT PPx for now in the setting of potential surgical intervention Code: Full Admission and Anticipated Discharge Date Admission Date: June 20, 2024 Supervising Physician Co-Signing Physician Notes Attending Attestation - Chart reviewed in detail, care plan d/w JENNIFER Gallo. I agree w/ the siddiqui components of her documentation. Complicated diverticulitis of distal colon/sigmoid -- phlegmon/abscess formation noted on admission CT, and there is perforation. Appreciate gen surg assistance. Cont NPO status, IV fluids, IV zosyn. If any clinical worsening would need repeat imaging urgently. Per radiology the phlegmon/abscess is not amenable to drainage at this time. Brian Navarro MD Subjective Pt is laying in bed at time of visit. States that he is experiencing ongoing abdominal pain, however it has decreased from the time that it initially began. Reports that the pain medication does help keep the pain under control. Denies N/V/D/C, chest pain, shortness of breath, palpitations, numbness/tingling, headache, or weakness/fatigue. No reported concerns from nursing. Review of Systems Review of Systems: All systems reviewed & are unremarkable except as noted in Subjective Physical Exam Physical Exam: General: No acute distress, well developed. Skin: Warm and dry Head: Normocephalic, atraumatic Eyes: PERRL, conjunctivae clear ENT: External ear and ear canal without swelling; nose atraumatic; good dentition, tongue normal appearance, pharynx normal without tonsillar swelling or exudate Neck: Supple, no LAD; no JVD Cardio: RRR, no M/G/R, S1 and S2 normal; valve clicking Resp: Chest wall symmetric, normal respiratory effort; No respiratory distress; expiratory wheezing throughout all lobes Abdomen: Soft, symmetric; pain to palpation of left lower quadrant; no distention; No masses or hepatosplenomegaly; bowel sounds normo-active, no rebound tenderness/guarding MSK: No deformities; pulses palpable and equal; No edema. Neuro: Awake, alert; CN intact Psych: Appropriate mood and affect; good judgement and insight. Results & Data Results & Data Vital Signs (Past 12 Hours) Vital Signs Temp Pulse Pulse Resp BP BP Pulse Ox 06/21/24 08:40 63 20 106/50 L 95 06/21/24 08:33 60 16 06/21/24 08:30 106/50 L 06/21/24 08:15 57 L 18 06/21/24 08:14 59 L 17 06/21/24 08:01 122/68 06/21/24 08:01 122/68 06/21/24 07:57 64 15 06/21/24 07:51 59 L 16 06/21/24 07:42 62 16 06/21/24 07:33 57 L 15 06/21/24 07:24 57 L 17 06/21/24 07:06 55 L 12 06/21/24 07:05 56 L 06/21/24 07:01 128/83 06/21/24 07:01 128/83 06/21/24 06:51 59 L 20 06/21/24 06:33 56 L 13 06/21/24 06:21 57 L 19 98 06/21/24 06:12 54 L 13 99 06/21/24 06:03 55 L 14 98 06/21/24 06:00 119/62 06/21/24 06:00 119/62 06/21/24 06:00 119/62 06/21/24 06:00 119/62 06/21/24 05:51 55 L 14 98 06/21/24 05:36 60 12 99 06/21/24 05:21 56 L 17 99 06/21/24 05:15 57 L 19 99 06/21/24 05:03 57 L 17 99 06/21/24 05:01 131/70 06/21/24 05:01 131/70 06/21/24 04:01 55 L 16 119/64 98 06/21/24 02:10 06/21/24 02:10 37.1 C 62 17 123/63 96 O2 Del Method O2 Flow Rate 06/21/24 08:40 Nasal Cannula 2 06/21/24 08:33 06/21/24 08:30 06/21/24 08:15 06/21/24 08:14 06/21/24 08:01 06/21/24 08:01 06/21/24 07:57 06/21/24 07:51 06/21/24 07:42 06/21/24 07:33 06/21/24 07:24 06/21/24 07:06 06/21/24 07:05 06/21/24 07:01 06/21/24 07:01 06/21/24 06:51 06/21/24 06:33 06/21/24 06:21 06/21/24 06:12 06/21/24 06:03 06/21/24 06:00 06/21/24 06:00 06/21/24 06:00 06/21/24 06:00 06/21/24 05:51 06/21/24 05:36 06/21/24 05:21 06/21/24 05:15 06/21/24 05:03 06/21/24 05:01 06/21/24 05:01 06/21/24 04:01 06/21/24 02:10 Nasal Cannula 2 06/21/24 02:10 Nasal Cannula PG Care Time/CCT Total # of Minutes Spent Total Time Spent with Patient: Total time spent is greater than 50% in coordination of care (as documented) at patient's floor/unit and/or counseling patient: Coding Level of Care Code 88905 SUB INP/OBS CARE 235MIN Diagnoses Perforation of sigmoid colon due to diverticulitis K57.20 Transaminitis R74.01 Pulmonary emphysema, unspecified emphysema type J43.9 COPD type: emphysema Emphysema type: unspecified CAD (coronary artery disease) I25.10 Time Spent (min) 45 (3) COPD (chronic obstructive pulmonary disease) COPD type: emphysema Emphysema type: unspecified Qualified Code(s): J43.9 - Emphysema, unspecified
[2024-06-21] MEDS: UMECLIDINIUM BROMIDE 62.5MCG/BLISTER 7 PUFFS/INHALER INH SCH (09:13)
[2024-06-21] MEDS: FLUTICASONE/VILANTEROL 100/25MCG 14 PUFFS/INHALER INH SCH (09:13)
[2024-06-21] MEDS: PANTOprazole 40 MG/10 ML SYR IV SCH (09:14)
[2024-06-21] MEDS: FAMOTIDINE 20MG IV PUSH 20 MG/5 ML SYR IV SCH (09:14)
--- NOTE | 2024-06-21 09:47 | Surgery Progress Note ---
Date of Service June 21, 2024 Assessment & Plan (1) Perforation of sigmoid colon due to diverticulitis: Plan: Pt here w/ acute diverticulitis of the descending/sigmoid colon with developing abscess (unnameable to drainage at this time) WBC 7.9. Patient's vitals are stable with HRs 50-60s and pt is afebrile Abdominal pain present, but improved from yesterday. remains with ttp in the LLQ prn pain meds as needed Recommend ongoing bowel rest today. NPO (ice/small sips with pills ok), IVF, and continue IV abx. Seems to be making improvements w/ supportive care Continue to hold plavix No indications for acute surgical intervention at this time, we will follow closely as above. doing well. minimal pain. much improved can give some clears today Admission and Anticipated Discharge Date Admission Date: June 20, 2024 Subjective Patient remains with pain but states he is feeling better than admission. He says as long as he keeps up with the pain meds he is doing well. No nausea/vomiting. Some flatus. Voiding okay. Physical Exam Physical Exam: awake/alert, no distress Gastrointestinal (Abdomen): Inspection/Auscultation: abdomen not distended Percussion/Palpation: + abdomen tender (TTP in the LLQ) and abdomen soft Results & Data Vital Signs (Past 12 Hours) Vital Signs Temp Pulse Pulse Resp BP BP Pulse Ox 06/21/24 08:40 63 20 106/50 L 95 06/21/24 08:33 60 16 06/21/24 08:30 106/50 L 06/21/24 08:15 57 L 18 06/21/24 08:14 59 L 17 06/21/24 08:01 122/68 06/21/24 08:01 122/68 06/21/24 07:57 64 15 06/21/24 07:51 59 L 16 06/21/24 07:42 62 16 06/21/24 07:33 57 L 15 06/21/24 07:24 57 L 17 06/21/24 07:06 55 L 12 06/21/24 07:05 56 L 06/21/24 07:01 128/83 06/21/24 07:01 128/83 06/21/24 06:51 59 L 20 06/21/24 06:33 56 L 13 06/21/24 06:21 57 L 19 98 06/21/24 06:12 54 L 13 99 06/21/24 06:03 55 L 14 98 06/21/24 06:00 119/62 06/21/24 06:00 119/62 06/21/24 06:00 119/62 06/21/24 06:00 119/62 06/21/24 05:51 55 L 14 98 06/21/24 05:36 60 12 99 06/21/24 05:21 56 L 17 99 06/21/24 05:15 57 L 19 99 06/21/24 05:03 57 L 17 99 06/21/24 05:01 131/70 06/21/24 05:01 131/70 06/21/24 04:01 55 L 16 119/64 98 06/21/24 02:10 06/21/24 02:10 98.8 F 62 17 123/63 96 O2 Del Method O2 Flow Rate 06/21/24 08:40 Nasal Cannula 2 06/21/24 08:33 06/21/24 08:30 06/21/24 08:15 06/21/24 08:14 06/21/24 08:01 06/21/24 08:01 06/21/24 07:57 06/21/24 07:51 06/21/24 07:42 06/21/24 07:33 06/21/24 07:24 06/21/24 07:06 06/21/24 07:05 06/21/24 07:01 06/21/24 07:01 06/21/24 06:51 06/21/24 06:33 06/21/24 06:21 06/21/24 06:12 06/21/24 06:03 06/21/24 06:00 06/21/24 06:00 06/21/24 06:00 06/21/24 06:00 06/21/24 05:51 06/21/24 05:36 06/21/24 05:21 06/21/24 05:15 06/21/24 05:03 06/21/24 05:01 06/21/24 05:01 06/21/24 04:01 06/21/24 02:10 Nasal Cannula 2 06/21/24 02:10 Nasal Cannula PG Care Time/CCT Total # of Minutes Spent Total Time Spent with Patient: Total time spent is greater than 50% in coordination of care (as documented) at patient's floor/unit and/or counseling patient: Coding Level of Care Code 00773 SUB INP/OBS CARE Diagnoses Perforation of sigmoid colon due to diverticulitis K57.20
[2024-06-21] MEDS: RIVASTIGMINE TD SCH (16:04)
[2024-06-21] MEDS: REMOVE RIVASTIGMINE PATCH SCH (16:05)
[2024-06-22 06:29] LABS: Basophils # (auto) 0.02 K/uL (0.00-0.20); Basophils % (auto) 0.3 %; Eosinophils # (auto) 0.06 K/uL (0.00-0.50); Eosinophils % (auto) 0.9 %; Hematocrit (blood only) 33.2 % (42.0-52.0); Hemoglobin 11.2 g/dl (14.0-18.0); Immature Granulocytes # (auto) 0.03 K/uL (0.01-0.20); Immature Granulocytes % (auto) 0.5 %; Lymphocytes # (auto) 0.45 K/uL (1.20-3.40); Lymphocytes % (auto) 6.8 %; Mean Corpuscular Hemoglobin 30.3 pg (25.0-34.0); Mean Corpuscular Hgb Conc 33.7 g/dL (32.0-36.0); Mean Corpuscular Volume 89.7 fL (80.0-100.0); Mean Platelet Volume 9.3 fL (9.4-12.4); Monocytes % (auto) 7.5 %; Neutrophils # (auto) 5.57 K/uL (1.40-6.50); Platelet Count 166 K/uL (130-400); RDW Coefficient of Variation 13.7 % (11.5-14.5); RDW Standard Deviation 45.1 fL (36.4-46.3); White Blood Count 6.63 K/ul (4.8-10.8)
[2024-06-22 07:09] LABS: Albumin Globulin Ratio 1.1 (0.9-2); Albumin Level 3.1 gm/dl (3.4-5.0); BUN Creatinine Ratio 14.9 (10-20); Bilirubin,Total 0.7 mg/dl (0.2-1.0); Calcium 7.8 mg/dl (8.6-10.3); Globulin 2.8 gm/dl (2.5-4.0); Potassium 4.1 mmol/L (3.5-5.1); Total Protein 5.9 gm/dl (6.0-8.3)
[2024-06-22] MEDS: INFLUENZA VACC TS2024-25(65y+)/PF (IIV3) 0.5mL Syr IM ONE (08:56)
[2024-06-22] MEDS: predniSONE 10 MG TABLET PO SCH (09:04)
--- NOTE | 2024-06-22 09:19 | Hospitalist Progress Note ---
Date of Service June 22, 2024 Assessment & Plan (1) Perforation of sigmoid colon due to diverticulitis: Plan: 68-year-old male presenting for LLQ abdominal/right groin pain, worsening since Sunday 06/17. Associated fevers, Tmax 102.1 F; no N/V - No leukocytosis; afebrile - CT A/P: acute perforated diverticulitis of the distal descending colon/descending sigmoid junction with pneumoperitoneum; developing abscess - Continue on Zosyn 4.5 g IV q8h - Diet adjusted to full liquids; continue - Continue morphine and Zofran as needed and as prescribed - CBC 06/22 - H&H 11.2/33.2; CMP- Na 136; magnesium 2.0 (06/21) - Calcium 7.8; no symptoms, exam WNL; most recent Vit. D (03/21) 49.9; taking Vit D/Ca supp at home which have been held since admission. - Still no indications for Sx management at this time per gen sx Appreciate ongoing gen surg input and recs (2) Transaminitis: Plan: Mildly elevated on arrival - Liver unremarkable on A/P CT - 06/22: LFTs with alk phos 165; otherwise grossly WNL - Continue to trend CMP; resolving (3) COPD (chronic obstructive pulmonary disease): Plan: Stage IV; patient endorses both SOB at rest and with exertion - 2L O2 via NC as needed - Lung transplant candidate for [facility] - Continue prednisone taper; 20mg on 06/21, then 10mg on 06/22 and 06/23. (4) CAD (coronary artery disease): Plan: History of heart valves- 2/2 - H/o PE (2009) + DVT of R arm (2019), Eliquis x 6 mo, then discontinued - PVD- s/p angioplasties; cannot tolerate ASA, on chronic Plavix - Spoke with Dr. Wisdom regarding resuming plavix; OK to do so; no current indications for acute Sx - Restart Plavix 75mg Plan Disposition: Continuing medical management, pending improvement VTE prophylaxis: On Plavix 75mg at home; continue Code: Full Admission and Anticipated Discharge Date Admission Date: June 20, 2024 Supervising Physician Co-Signing Physician Notes Attending Attestation - Chart reviewed in detail, care plan d/w JENNIFER Gallo. I agree w/ the siddiqui components of her documentation. Complicated diverticulitis of distal colon/sigmoid -- phlegmon/abscess formation noted on admission CT, and there is perforation. Appreciate gen surg assistance. He is clinically improving. Cont slow diet advancement. Cont IV abx. Brian Navarro MD Subjective Pt is laying in bed at time of visit. States that he still experiencing abdominal pain, however it has improved with pain medication. Pain is localized to the LLQ, but does radiate to RLQ when standing or walking. Denies nausea or vomiting, D/C, heartburn, F/C. Additionally denies chest pain, shortness of breath, palpitations, numbness/tingling, headaches. No new concerns from nursing. Telemetry: HR 60s, NSR Review of Systems Review of Systems: All systems reviewed & are unremarkable except as noted in Subjective Physical Exam Physical Exam: General: No acute distress, well developed. Skin: Warm and dry Neck: Supple, no LAD; no JVD Cardio: RRR, no M/G/R, S1 and S2 normal Resp: Chest wall symmetric, normal respiratory effort; No respiratory distress; expiratory wheezing throughout all lobes; wearing NC Abdomen: Soft, symmetric; pain to light palpation of left lower quadrant; no distention; No masses or hepatosplenomegaly; bowel sounds normo-active, no rebound tenderness/guarding MSK: No deformities; pulses palpable and equal; No edema. Neuro: Awake, alert; CN intact Psych: Appropriate mood and affect; good judgement and insight. Results & Data Results & Data Vital Signs (Past 12 Hours) Vital Signs Temp Pulse Pulse Resp BP Pulse Ox O2 Del Method 06/22/24 08:33 36.4 C L 63 18 121/68 98 Room Air 06/22/24 07:26 60 06/22/24 03:43 36.8 C 73 16 123/65 91 Room Air 06/22/24 01:52 71 06/22/24 00:50 Nasal Cannula 06/21/24 23:25 36.8 C 71 18 126/69 97 Room Air O2 Flow Rate 06/22/24 08:33 06/22/24 07:26 06/22/24 03:43 06/22/24 01:52 06/22/24 00:50 2 06/21/24 23:25 PG Care Time/CCT Total # of Minutes Spent Total Time Spent with Patient: Total time spent is greater than 50% in coordination of care (as documented) at patient's floor/unit and/or counseling patient: Coding Level of Care Code 41093 SUB INP/OBS CARE 2/35MIN Diagnoses Perforation of sigmoid colon due to diverticulitis K57.20 Transaminitis R74.01 Pulmonary emphysema, unspecified emphysema type J43.9 COPD type: emphysema Emphysema type: unspecified CAD (coronary artery disease) I25.10 Time Spent (min) 40 Comment Discussed with general surgery team (3) COPD (chronic obstructive pulmonary disease) COPD type: emphysema Emphysema type: unspecified Qualified Code(s): J43.9 - Emphysema, unspecified
--- NOTE | 2024-06-22 10:39 | Surgery Progress Note ---
Date of Service June 22, 2024 Assessment & Plan (1) Diverticulitis large intestine: Plan: clinically improving wbc normal. afebrile will allow him to try full liquids rec stay on IV antibiotics for now. Admission and Anticipated Discharge Date Admission Date: June 20, 2024 Subjective pt seen. states he feels much better than pre admission. still some LLQ tenderness with movement. juan m clears. no nausea. Physical Exam Constitutional: WD/WN, vitals as above no acute distress and not ill appearing Eyes: PERRL, conjunctivae normal, anicteric sclerae EOM intact bilaterally ENMT: external ear and nose normal, oropharynx normal Ears: no hearing impairment Neck: trachea midline, no thyromegaly Respiratory: normal respiratory effort; no respiratory distress and does not use accessory muscles Cardiovascular: Rate/Rhythm: regular rate and regular rhythm Gastrointestinal (Abdomen): soft. mild LLQ ttp. improved. no peritoneal signs Skin: no rashes, warm and dry Psychiatric: Orientation: alert, oriented x 3 and cooperative Results & Data Vital Signs (Past 12 Hours) Vital Signs Temp Pulse Pulse Resp BP Pulse Ox O2 Del Method 06/22/24 08:33 36.4 C L 63 18 121/68 98 Room Air 06/22/24 07:26 60 06/22/24 03:43 36.8 C 73 16 123/65 91 Room Air 06/22/24 01:52 71 06/22/24 00:50 Nasal Cannula 06/21/24 23:25 36.8 C 71 18 126/69 97 Room Air O2 Flow Rate 06/22/24 08:33 06/22/24 07:26 06/22/24 03:43 06/22/24 01:52 06/22/24 00:50 2 06/21/24 23:25 PG Care Time/CCT Total # of Minutes Spent Total Time Spent with Patient: Total time spent is greater than 50% in coordination of care (as documented) at patient's floor/unit and/or counseling patient: Coding Level of Care Code 82749 SUB INP/OBS CARE 09/22MIN Diagnoses Diverticulitis large intestine K57.20 Diverticulitis bleeding: without bleeding Diverticulitis complication: with perforation (1) Diverticulitis large intestine Diverticulitis bleeding: without bleeding Diverticulitis complication: with perforation Qualified Code(s): K57.20 - Diverticulitis of large intestine with perforation and abscess without bleeding
[2024-06-22] MEDS: CLOPIDOGREL BISULFATE 75 MG TAB PO SCH (13:56)
[2024-06-23 07:44] LABS: Basophils # (auto) 0.02 K/uL (0.00-0.20); Basophils % (auto) 0.5 %; Eosinophils # (auto) 0.05 K/uL (0.00-0.50); Eosinophils % (auto) 1.2 %; Hemoglobin 11.3 g/dl (14.0-18.0); Immature Granulocytes # (auto) 0.04 K/uL (0.01-0.20); Mean Corpuscular Hgb Conc 34.2 g/dL (32.0-36.0); Mean Corpuscular Volume 90.4 fL (80.0-100.0); Mean Platelet Volume 9.3 fL (9.4-12.4); Monocytes # (auto) 0.31 K/uL (0.11-0.59); Monocytes % (auto) 7.7 %; Neutrophils # (auto) 3.19 K/uL (1.40-6.50); Neutrophils % (auto) 79.6 %; Platelet Count 221 K/uL (130-400); RDW Coefficient of Variation 13.4 % (11.5-14.5); RDW Standard Deviation 44.3 fL (36.4-46.3); Red Blood Count 3.65 M/uL (4.70-6.10); White Blood Count 4.01 K/ul (4.8-10.8)
[2024-06-23 07:54] LABS: Albumin Globulin Ratio 1.1 (0.9-2); Albumin Level 3.1 gm/dl (3.4-5.0); BUN Creatinine Ratio 10.8 (10-20); Bilirubin,Total 0.5 mg/dl (0.2-1.0); Calcium 8.2 mg/dl (8.6-10.3); Creatinine Clr Calc Pharmacy 82.6 ml/min; Globulin 2.8 gm/dl (2.5-4.0); Potassium 4.7 mmol/L (3.5-5.1); Total Protein 5.9 gm/dl (6.0-8.3)
--- NOTE | 2024-06-23 09:37 | Surgery Progress Note ---
Date of Service June 23, 2024 Assessment & Plan (1) Diverticulitis large intestine: Plan: doing well. no indications for surgery....will s/o ok from my standpoint for d/c on low fiber diet Admission and Anticipated Discharge Date Admission Date: June 20, 2024 Subjective feeling great. no pain juan m full liquids. Physical Exam Constitutional: WD/WN, vitals as above no acute distress and not ill appearing Eyes: PERRL, conjunctivae normal, anicteric sclerae EOM intact bilaterally ENMT: external ear and nose normal, oropharynx normal Ears: no hearing impairment Neck: trachea midline, no thyromegaly Respiratory: normal respiratory effort; no respiratory distress and does not use accessory muscles Cardiovascular: Rate/Rhythm: regular rate and regular rhythm Gastrointestinal (Abdomen): normal bowel sounds, soft, nontender, no hepatosplenomegaly Skin: no rashes, warm and dry Psychiatric: Orientation: alert, oriented x 3 and cooperative Results & Data Vital Signs (Past 12 Hours) Vital Signs Temp Pulse Pulse Resp BP Pulse Ox O2 Del Method 06/23/24 08:51 Nasal Cannula 06/23/24 07:38 36.4 C L 51 L 14 134/80 99 Nasal Cannula 06/23/24 07:13 47 L 06/23/24 02:45 36.3 C L 51 L 18 125/66 98 Nasal Cannula 06/22/24 23:41 Nasal Cannula 06/22/24 22:53 36.4 C 56 L 18 113/63 98 Nasal Cannula 06/22/24 21:58 63 O2 Flow Rate 06/23/24 08:51 2 06/23/24 07:38 2 06/23/24 07:13 06/23/24 02:45 2 06/22/24 23:41 2 06/22/24 22:53 2 06/22/24 21:58 PG Care Time/CCT Total # of Minutes Spent Total Time Spent with Patient: Total time spent is greater than 50% in coordination of care (as documented) at patient's floor/unit and/or counseling patient: Coding Level of Care Code 96432 SUB INP/OBS CARE 09/22MIN Diagnoses Diverticulitis large intestine K57.20 Diverticulitis bleeding: without bleeding Diverticulitis complication: with perforation (1) Diverticulitis large intestine Diverticulitis bleeding: without bleeding Diverticulitis complication: with perforation Qualified Code(s): K57.20 - Diverticulitis of large intestine with perforation and abscess without bleeding
--- NOTE | 2024-06-23 18:39 | Hospitalist Progress Note ---
Date of Service June 23, 2024 Assessment & Plan (1) Perforation of sigmoid colon due to diverticulitis: Plan: CT A/P at time of admission -- acute perforated diverticulitis of the distal descending colon/descending sigmoid junction with pneumoperitoneum; developing abscess (or phlegmon). Clinically improving and tolerating advancement in diet. Remains on Zosyn 4.5 g IV q8h - day #4 of such. Surgery advanced his diet today to low fiber. Will add in gluten-free as he has celiac disease by history. Last colonoscopy - 12/2023 - multiple polyps removed; sigmoid diverticulosis noted. Fortunately, despite the radiographic severity of his sigmoid diverticulitis with perforation/early abscess/early phlegmon, he is clinically doing well. Cont IV zosyn and watch overnight. Labs in am. (2) Transaminitis: Plan: reactive to #1? other? liver normal on CT. he is s/p cholecystectomy in the past. continue to monitor the LFTs. holding his statin. (3) COPD (chronic obstructive pulmonary disease): Plan: with recent flare - improved/resolving finish prednisone taper today cont 2L O2 via NC as needed patient is being referred to [facility] in [place] to see if he is a Lung transplant candidate follows with [facility] cont all usual inhalers, etc can resume theophylline at d/c (4) CAD (coronary artery disease): Plan: no ischemic symptoms at this time cont coreg coreg plavix statin on hold (5) Hx of deep venous thrombosis: Plan: H/o PE (2009) + DVT of R arm (2019), Eliquis x 6 mo, then discontinued add heparin SC for DVT proph Plan home 06/24? Admission and Anticipated Discharge Date Admission Date: June 20, 2024 Subjective tele overnight wnl patient had low fiber diet for lunch today and did well with such no increase in abd pain or N/V with eating regular food no blood per rectum his right-sided abd pain is fully resolved his LLQ pain is nearly resolved (just minor) COPD/recent flare improved chronic COPD symptoms are at baseline finishing prednisone taper follows with [facility] Review of Systems Review of Systems: gen - no fevers or chills cv - no chest pain pulm - no dyspnea at rest Physical Exam Physical Exam: gen - NAD, pleasant, looks well neck - no JVD mouth - MMM heart - RRR, s1 s2, no murmur lungs - CTA b/l, no rales abd - soft, scant tenderness LLQ, BS+, ND, no peritoneal signs ext - no edema, pulses 2+ b/l psych - a/o x 3 Results & Data Results & Data Vital Signs (Past 12 Hours) Vital Signs Temp Pulse Pulse Resp BP Pulse Ox O2 Del Method 06/23/24 15:29 36.3 C L 59 L 18 126/70 98 Nasal Cannula 06/23/24 14:14 60 06/23/24 11:27 36.6 C 65 16 123/70 95 Nasal Cannula 06/23/24 08:51 Nasal Cannula 06/23/24 07:38 36.4 C L 51 L 14 134/80 99 Nasal Cannula 06/23/24 07:13 47 L O2 Flow Rate 06/23/24 15:29 2 06/23/24 14:14 06/23/24 11:27 2 06/23/24 08:51 2 06/23/24 07:38 2 06/23/24 07:13 Laboratory Results Laboratory Results - last 24 hr 06/23/24 07:01 WBC 4.01 L RBC 3.65 L Hgb 11.3 L Hct 33.0 L MCV 90.4 MCH 31.0 MCHC 34.2 RDW Std Deviation 44.3 RDW Coeff of Rosario 13.4 Plt Count 221 MPV 9.3 L Immature Gran % (Auto) 1.0 Neut % (Auto) 79.6 Lymph % (Auto) 10.0 [place] % (Auto) 7.7 Eos % (Auto) 1.2 Baso % (Auto) 0.5 Neut # (Auto) 3.19 Lymph # (Auto) 0.40 L [place] # (Auto) 0.31 Eos # (Auto) 0.05 Baso # (Auto) 0.02 Immature Gran # (Auto) 0.04 Sodium 142 Potassium 4.7 Chloride 108 H Carbon Dioxide 30 Anion Gap 4 BUN 9 Creatinine 0.83 Est Cr Clr Drug Dosing 82.6 eGFR 94.74 BUN/Creatinine Ratio 10.8 Glucose 96 Calcium 8.2 L Total Bilirubin 0.5 AST 22 ALT 30 Alkaline Phosphatase 162 H Total Protein 5.9 L Albumin 3.1 L Globulin 2.8 Albumin/Globulin Ratio 1.1 PG Care Time/CCT Total # of Minutes Spent Total Time Spent with Patient: Total time spent is greater than 50% in coordination of care (as documented) at patient's floor/unit and/or counseling patient: Coding Level of Care Code 71068 SUB INP/OBS CARE Diagnoses Perforation of sigmoid colon due to diverticulitis K57.20 Transaminitis R74.01 Pulmonary emphysema, unspecified emphysema type J43.9 COPD type: emphysema Emphysema type: unspecified CAD (coronary artery disease) I25.10 Hx of deep venous thrombosis Z86.718 (3) COPD (chronic obstructive pulmonary disease) COPD type: emphysema Emphysema type: unspecified Qualified Code(s): J43.9 - Emphysema, unspecified
[2024-06-23] MEDS: HEPARIN SOD 5,000 UNIT/0.5 ML VIAL SQ SCH (21:29)
[2024-06-24 08:43] LABS: Hematocrit (blood only) 34.9 % (42.0-52.0); Hemoglobin 11.2 g/dl (14.0-18.0); Mean Corpuscular Hgb Conc 32.1 g/dL (32.0-36.0); Mean Corpuscular Volume 93.6 fL (80.0-100.0); Mean Platelet Volume 9.3 fL (9.4-12.4); Platelet Count 262 K/uL (130-400); RDW Coefficient of Variation 13.8 % (11.5-14.5); RDW Standard Deviation 46.5 fL (36.4-46.3); Red Blood Count 3.73 M/uL (4.70-6.10); White Blood Count 3.94 K/ul (4.8-10.8)
[2024-06-24 09:08] LABS: BUN Creatinine Ratio 16.7 (10-20); Calcium 8.5 mg/dl (8.6-10.3); Creatinine Clr Calc Pharmacy 76.2 ml/min; Potassium 4.6 mmol/L (3.5-5.1)
--- NOTE | 2024-06-24 10:30 | Surgery Progress Note ---
Date of Service June 24, 2024 Assessment & Plan (1) Diverticulitis large intestine: Plan: medicine to order repeat ct scan will follow up with rec's after CT scan hold d/c. make npo until after scan Admission and Anticipated Discharge Date Admission Date: June 20, 2024 Subjective pt seen. was doing great. this AM about 8 developed some recurrent LLQ pain. Physical Exam Constitutional: WD/WN, vitals as above no acute distress and not ill appearing Eyes: PERRL, conjunctivae normal, anicteric sclerae EOM intact bilaterally ENMT: external ear and nose normal, oropharynx normal Ears: no hearing impairment Neck: trachea midline, no thyromegaly Respiratory: normal respiratory effort; no respiratory distress and does not use accessory muscles Cardiovascular: Rate/Rhythm: regular rate and regular rhythm Gastrointestinal (Abdomen): soft. mild LLQ ttp. no peritonitis Skin: no rashes, warm and dry Psychiatric: Orientation: alert, oriented x 3 and cooperative Results & Data Vital Signs (Past 12 Hours) Vital Signs Temp Pulse Pulse Resp BP Pulse Ox O2 Del Method 06/24/24 07:54 36.3 C L 52 L 16 145/73 H 97 Room Air 06/24/24 07:07 51 L 06/24/24 03:07 36.3 C L 59 L 18 146/80 H 95 Room Air 06/23/24 22:49 36.3 C L 52 L 18 129/77 99 Nasal Cannula O2 Flow Rate 06/24/24 07:54 06/24/24 07:07 06/24/24 03:07 06/23/24 22:49 2 PG Care Time/CCT Total # of Minutes Spent Total Time Spent with Patient: Total time spent is greater than 50% in coordination of care (as documented) at patient's floor/unit and/or counseling patient: Coding Level of Care Code 70512 SUB INP/OBS CARE Diagnoses Diverticulitis large intestine K57.20 Diverticulitis bleeding: without bleeding Diverticulitis complication: with perforation (1) Diverticulitis large intestine Diverticulitis bleeding: without bleeding Diverticulitis complication: with perforation Qualified Code(s): K57.20 - Diverticulitis of large intestine with perforation and abscess without bleeding
[2024-06-24] MEDS: OPTIRAY 320 100ml IV ONE (10:42)
--- NOTE | 2024-06-24 13:18 | CT Scan Report ---
CT SCAN OF THE ABDOMEN AND PELVIS WITH IV CONTRAST CLINICAL HISTORY: Diverticulitis with abscess. COMPARISON STUDY: Abdominal CT dated 06/20/2024. TECHNIQUE: Following the IV administration of 94 cc of Optiray 320, CT scan of the abdomen and pelvi s is performed from the lung bases to the proximal femora. Images are reviewed in the axial, sagittal , and coronal planes. IV contrast was administered without complication. A dose lowering technique wa s utilized adhering to the principles of ALARA. CT DOSE: 1112.81 mGy.cm FINDINGS: Lung bases: The patient is status post midline sternotomy. The heart is normal in size and without pe ricardial effusion. The coronary arteries are densely calcified. Advanced degenerative change is seen at the lung bases. There is bibasilar scarring/atelectasis. Trace pleural fluid is seen bilaterally. There is no airspace consolidation typical for pneumonia. A tiny hiatal hernia is noted. Liver: The contrast-enhanced liver is normal in size, contour, and attenuation. There is minimal cent ral intrahepatic biliary ductal dilatation. The hepatic veins and portal veins are patent. Gallbladder: Surgically absent noting clips in the gallbladder fossa. Spleen: Normal in size and attenuation. Pancreas: There is moderate fatty atrophy of the pancreas which is otherwise grossly unremarkable. Adrenal glands: Unremarkable. Kidneys: The contrast enhanced kidneys are normal in size and without hydronephrosis. The kidneys enh ance symmetrically. A right lower pole renal cyst measures 2.3 cm. Additional subcentimeter cortical hypodensities also likely represent cysts but are too small for definitive characterization. Abdominal vasculature: The abdominal aorta is normal in course and caliber noting advanced atheroscle rotic calcification. Bowel: No bowel obstruction is seen. There is moderate diverticulosis of the left colon. Wall thicken ing and inflammation of the mid descending colon is consistent with acute diverticulitis. 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 This is consistent with a diverticular abscess or possibly fistula. This measures approximately 7.5 x 2 x 2. 5 cm in aggregate dimension, and is overall similar in size to the 06/20/2024 examination. The append ix is well-visualized and normal. Peritoneum: Pneumoperitoneum has largely resolved. There is a fat-containing umbilical hernia. Trace free fluid in the pelvis is likely reactive. Lymphadenopathy: None. Pelvic viscera: The prostate gland is mildly enlarged and heterogeneous. The bladder is mildly disten ded, and the wall is thickened/trabeculated indicating chronic outlet obstruction. Skeletal structures: The skeletal structures are osteopenic. There is mild to moderate lumbosacral sp ondylosis. No lytic or blastic lesions are seen. IMPRESSION: 1. Again seen is diverticulitis of the descending colon. 2. Pneumoperitoneum has almost completely resolved. 3. There is a serpiginous thick walled gas and fluid containing tract/collection with surrounding inf lammation posterior to the descending colon consistent with abscess/fistula. This is similar in size to 06/20/2024 examination. 4. Emphysema and trace pleural effusions. 5. Additional findings as above. ACT 112: Negative or not required by law. Electronically signed by: Rc Hitchcock M.D. 06/24/2024 1:15 PM
--- NOTE | 2024-06-24 13:35 | Hospitalist Progress Note ---
Date of Service June 24, 2024 Assessment & Plan (1) Perforation of sigmoid colon due to diverticulitis: Plan: CT A/P at time of admission -- acute perforated diverticulitis of the distal descending colon/descending sigmoid junction with pneumoperitoneum; developing abscess (or phlegmon). Had been clinically improving and tolerating advancement in diet. Was advanced to low fiber diet yesterday mid-day. Remains on Zosyn 4.5 g IV q8h - day #5 today. Unfortunately he has worsening LLQ abd pain this am. Thus, will obtain repeat CT abd/pelvis with contrast to exclude worsening disease, worsening abscess/phlegmon size, etc. Make NPO. Restart IV fluids. Will d/w Dr Wisdom, on-call gen surg. Last colonoscopy - 12/2023 - multiple polyps removed; sigmoid diverticulosis noted. (2) Transaminitis: Plan: reactive to #1? other? liver normal on CT. he is s/p cholecystectomy in the past. LFTs have normalized. holding his statin. (3) COPD (chronic obstructive pulmonary disease): Plan: with recent flare - resolved finished prednisone taper 06/23 cont 2L O2 via NC as needed patient is being referred to [facility] in [place] to see if he is a Lung transplant candidate follows with [facility] cont all usual inhalers, etc can resume theophylline at d/c (4) CAD (coronary artery disease): Plan: no ischemic symptoms at this time cont coreg place plavix on hold in the event he needs surgical intervention statin on hold as well (5) Hx of deep venous thrombosis: Plan: H/o PE (2010) + DVT of R arm (2019), Eliquis x 6 mo, then discontinued add heparin SC for DVT proph - 5000 units TID Plan discharge canceled due to worsening pain CT a/p - repeat ordered discuss care w/ Dr Wisdom Admission and Anticipated Discharge Date Admission Date: June 20, 2024 Subjective patient reports that about 7/730am today he developed suddenly worsening LLQ abd pain he had a stool a short time later but this did not relieve the pain the pain has been constant since then had no pain when he went to bed last pm or after eating dinner last pm did eat breakfast this am but it didn't worsen his pain no fevers or chills no nausea or emesis tele overnight - wnl Review of Systems Review of Systems: gen - no fevers or chills; appetite has been good since yesterday GI - see HPI; no blood per rectum CV - no chest pain pulm - no dyspnea at rest, no cough or other pulmonary symptoms that are worse than baseline Physical Exam Physical Exam: gen - NAD, pleasant, looks the same as yesterday; nontoxic neck - no JVD mouth - MMM heart - RRR, s1 s2, no murmur lungs - mild end-exp wheezes b/l, no rales, no increased work of breathing abd - soft, moderate tenderness LLQ (worse than yesterday), BS+, ND, a smidge of voluntary guarding with palpation of the LLQ ext - no edema, pulses 2+ b/l psych - a/o x 3 Results & Data Results & Data Vital Signs (Past 12 Hours) Vital Signs Temp Pulse Pulse Pulse Resp BP Pulse Ox 06/24/24 12:31 06/24/24 12:26 36.3 C L 62 13 171/52 H 97 06/24/24 07:54 36.3 C L 52 L 16 145/73 H 97 06/24/24 07:07 51 L 06/24/24 03:07 36.3 C L 59 L 18 146/80 H 95 Pulse Ox O2 Del Method O2 Del Method O2 Flow Rate O2 Flow Rate 06/24/24 12:31 97 Nasal Cannula 2 06/24/24 12:26 Nasal Cannula 2 06/24/24 07:54 Room Air 06/24/24 07:07 06/24/24 03:07 Room Air Laboratory Results Laboratory Results - last 24 hr 06/24/24 07:35 WBC 3.94 L RBC 3.73 L Hgb 11.2 L Hct 34.9 L MCV 93.6 MCH 30.0 MCHC 32.1 RDW Std Deviation 46.5 H RDW Coeff of Rosario 13.8 Plt Count 262 MPV 9.3 L Sodium 143 Potassium 4.6 Chloride 107 Carbon Dioxide 32 Anion Gap 4 BUN 15 Creatinine 0.90 Est Cr Clr Drug Dosing 76.2 eGFR 92.45 BUN/Creatinine Ratio 16.7 Glucose 80 Calcium 8.5 L PG Care Time/CCT Total # of Minutes Spent Total Time Spent with Patient: Total time spent is greater than 50% in coordination of care (as documented) at patient's floor/unit and/or counseling patient: Coding Level of Care Code 04778 SUB INP/OBS CARE MIN Diagnoses Perforation of sigmoid colon due to diverticulitis K57.20 Transaminitis R74.01 Pulmonary emphysema, unspecified emphysema type J43.9 COPD type: emphysema Emphysema type: unspecified CAD (coronary artery disease) I25.10 Hx of deep venous thrombosis Z86.718 (3) COPD (chronic obstructive pulmonary disease) COPD type: emphysema Emphysema type: unspecified Qualified Code(s): J43.9 - Emphysema, unspecified
[2024-06-24] MEDS: D5W AND NSS 1,000 ML IV SCH (14:54)
[2024-06-25 06:28] LABS: Basophils # (auto) 0.03 K/uL (0.00-0.20); Basophils % (auto) 0.7 %; Eosinophils # (auto) 0.06 K/uL (0.00-0.50); Eosinophils % (auto) 1.4 %; Hematocrit (blood only) 33.2 % (42.0-52.0); Hemoglobin 11.4 g/dl (14.0-18.0); Immature Granulocytes # (auto) 0.12 K/uL (0.01-0.20); Immature Granulocytes % (auto) 2.8 %; Lymphocytes # (auto) 0.63 K/uL (1.20-3.40); Lymphocytes % (auto) 14.7 %; Mean Corpuscular Hemoglobin 30.6 pg (25.0-34.0); Mean Corpuscular Hgb Conc 34.3 g/dL (32.0-36.0); Mean Corpuscular Volume 89.2 fL (80.0-100.0); Monocytes % (auto) 9.3 %; Neutrophils # (auto) 3.05 K/uL (1.40-6.50); Neutrophils % (auto) 71.1 %; Platelet Count 284 K/uL (130-400); RDW Coefficient of Variation 13.8 % (11.5-14.5); RDW Standard Deviation 45.5 fL (36.4-46.3); Red Blood Count 3.72 M/uL (4.70-6.10); White Blood Count 4.29 K/ul (4.8-10.8)
[2024-06-25 06:38] LABS: BUN Creatinine Ratio 12.2 (10-20); Calcium 8.4 mg/dl (8.6-10.3); Creatinine Clr Calc Pharmacy 92.7 ml/min; Potassium 4.1 mmol/L (3.5-5.1)
[2024-06-25] MEDS: ALBUT/IPRATROP 3MG/0.5MG NEB 3 ML VIAL NEB SCH (08:32)
--- NOTE | 2024-06-25 09:03 | Surgery Progress Note ---
<Statement entered by Lakisha Melgoza DO - 06/25/24 15:26> I have seen and examined this patient with the surgical [employer] this am. I agreed with this plan. The patient prefers to try clear liquids today. Date of Service June 25, 2024 Assessment & Plan (1) Diverticulitis large intestine: Plan: -Pt is feeling well this morning and states his abdominal pain is intermittent at times. -Will keep npo for now, continue IV hydration, and IV Zosyn for antibiotic coverage -Repeat CT scan of A/P was performed yesterday due to ongoing LLQ abdominal pain. CT reviewed and it does appear to be unchanged from 06/20, however pt still with 7x2x2.5cm abscess. Will discuss with attending surgeon regarding persistent abscess for final plans/recommendations. -Continue medical management per primary team, surgery will continue to follow Admission and Anticipated Discharge Date Admission Date: June 20, 2024 Subjective Pt feels well this morning, still complains of LLQ pain at times however states this has improved since yesterday Repeat CT A/P performed yesterday which appears to be similar to previous done on 06/20. However still showing 7x2x2.5 cm. WBC 4.29 today, aferbile and continues on IV antibiotics Physical Exam Constitutional: WD/WN, vitals as above Respiratory: normal respiratory effort, lungs clear to auscultation Cardiovascular: RRR, no murmur, no edema Gastrointestinal (Abdomen): Abdomen soft, nondistended, mild TTP to the LLQ on exam however no rebound, guarding or peritonitis. Psychiatric: A+Ox3, euthymic affect Results & Data Vital Signs (Past 12 Hours) Vital Signs Temp Pulse Pulse Resp BP Pulse Ox O2 Del Method 06/25/24 08:34 68 H 94 Room Air 06/25/24 07:48 36.3 C L 54 L 18 133/72 96 Room Air 06/25/24 07:41 55 L 06/25/24 03:14 36.4 C L 49 L 18 126/74 98 Nasal Cannula 06/24/24 22:43 36.4 C L 48 L 16 100/60 98 Nasal Cannula 06/24/24 22:26 48 L O2 Flow Rate 06/25/24 08:34 06/25/24 07:48 06/25/24 07:41 06/25/24 03:14 2 06/24/24 22:43 2 06/24/24 22:[address] SCAN OF THE ABDOMEN AND PELVIS WITH IV CONTRAST CLINICAL HISTORY: Diverticulitis with abscess. COMPARISON STUDY: Abdominal CT dated 06/20/2024. TECHNIQUE: Following the IV administration of 94 cc of Optiray 320, CT scan of the abdomen and pelvis is performed from the lung bases to the proximal femora. Images are reviewed in the axial, sagittal, and coronal planes. IV contrast was administered without complication. A dose lowering technique was utilized adhering to the principles of ALARA. CT DOSE: 1112.81 mGy.cm FINDINGS: Lung bases: The patient is status post midline sternotomy. The heart is normal in size and without pericardial effusion. The coronary arteries are densely calcified. Advanced degenerative change is seen at the lung bases. There is bibasilar scarring/atelectasis. Trace pleural fluid is seen bilaterally. There is no airspace consolidation typical for pneumonia. A tiny hiatal hernia is noted. Liver: The contrast-enhanced liver is normal in size, contour, and attenuation. There is minimal central intrahepatic biliary ductal dilatation. The hepatic veins and portal veins are patent. Gallbladder: Surgically absent noting clips in the gallbladder fossa. Spleen: Normal in size and attenuation. Pancreas: There is moderate fatty atrophy of the pancreas which is otherwise grossly unremarkable. Adrenal glands: Unremarkable. Kidneys: The contrast enhanced kidneys are normal in size and without hydronephrosis. The kidneys enhance symmetrically. A right lower pole renal cyst measures 2.3 cm. Additional subcentimeter cortical hypodensities also likely represent cysts but are too small for definitive characterization. Abdominal vasculature: The abdominal aorta is normal in course and caliber noting advanced atherosclerotic calcification. Bowel: No bowel obstruction is seen. There is moderate diverticulosis of the left colon. Wall thickening and inflammation of the mid descending colon is consistent with acute diverticulitis. There is a thick-walled peripherally enhancing serpiginous gas and fluid containing tract/collection seen posterior to the descending colon extending from axial images #[id number] with straining inflammation. This is consistent with a diverticular abscess or possibly fistula. This measures approximately 7.5 x 2 x 2.5 cm in aggregate dimension, and is overall similar in size to the 06/20/2024 examination. The appendix is well-visualized and normal. Peritoneum: Pneumoperitoneum has largely resolved. There is a fat-containing umbilical hernia. Trace free fluid in the pelvis is likely reactive. Lymphadenopathy: None. Pelvic viscera: The prostate gland is mildly enlarged and heterogeneous. The bladder is mildly distended, and the wall is thickened/trabeculated indicating chronic outlet obstruction. Skeletal structures: The skeletal structures are osteopenic. There is mild to moderate lumbosacral spondylosis. No lytic or blastic lesions are seen. IMPRESSION: 1. Again seen is diverticulitis of the descending colon. 2. Pneumoperitoneum has almost completely resolved. 3. There is a serpiginous thick walled gas and fluid containing tract/collection with surrounding inflammation posterior to the descending colon consistent with abscess/fistula. This is similar in size to 06/20/2024 examination. 4. Emphysema and trace pleural effusions. 5. Additional findings as above. PG Care Time/CCT Total # of Minutes Spent Total Time Spent with Patient: Total time spent is greater than 50% in coordination of care (as documented) at patient's floor/unit and/or counseling patient: Coding Level of Care Code 83537 SUB INP/OBS CARE 09/22MIN Diagnoses Diverticulitis large intestine K57.20 Diverticulitis bleeding: without bleeding Diverticulitis complication: with perforation (1) Diverticulitis large intestine Diverticulitis bleeding: without bleeding Diverticulitis complication: with perforation Qualified Code(s): K57.20 - Diverticulitis of large intestine with perforation and abscess without bleeding
[2024-06-25 16:40] VITALS: TEMP 97.9
--- NOTE | 2024-06-25 18:37 | Discharge Summary ---
Discharge Summary Date of Service date of admission - June 20, 2024 date of discharge - June 25, 2024 discharge disposition - [facility]; JENNIFER Arceo Principal Dx & Hospital Course #1 = Principal Diagnosis (1) Colonic diverticular abscess: 7.5 cm x 2 cm x 2.5 cm. posterior to the descending colon. appearance most c/w diverticular abscess +/- fistulous tract. there was no change in size of this fluid/gas collection when the CT abd/pelvis done on 06/20 was compared with repeat CT abd/pelvis on 06/24. HOWEVER - in light of the size of the fluid collection, ongoing LLQ abdominal pain, and persistence of the abscess despite 5 days of IV zosyn [facility] was contacted on 06/25/24. [facility] IR reviewed the CT scans and felt that the abscess could likely be drained percutaneously. subsequently Dr Pattie Franks accepted Mr Thompson in transfer to [facility] for ongoing care and IR consultation. (2) Perforation of sigmoid colon due to diverticulitis: CT abd/pelvis at time of admission on 06/20/24 showed acute perforated diverticulitis of the distal descending colon/sigmoid colon with pneumoperitoneum (macroperforation) as well as a developing abscess (or phlegmo n). He was admitted for IV fluids, bowel rest, broad-spectrum IV antibiotics, and pain control. General surgery was consulted for assistance with his diverticulitis. LLQ pain initially improved and he was started back on a clear liquid diet. This was slowly advanced and on 06/23/24 he was advanced further to low fiber diet. Unfortunately, by the AM of 06/24/24, his LLQ abdominal pain returned. A repeat CT abd/pelvis was obtained the AM of 06/24/24. This showed improvement in the free air and stability of the descending colon/sigmoid diverticulitis. HOWEVER - the descending colon diverticular abscess, although not any larger, was still present. In addition to abscess there was some question of whether there was a fistulous tract present in this region. 06/24/24 - made NPO again; IV fluids & IV zosyn was continued. 06/25/24 - patient's LLQ pain improved overnight. [id number] [facility] was contacted. A request for IR to review Mr Thompson's films was made to see if percutaneous drainage of the abscess was possible. IR indeed felt drainage was possible and the patient was subsequently accepted in transfer to [facility] for ongoing care. Last colonoscopy, completed at [facility] - 12/2023 - multiple polyps removed; sigmoid diverticulosis noted. (3) Transaminitis: reactive to #2? other? liver normal on CT. he is s/p cholecystectomy in the past. LFTs have normalized. held his statin while hospitalized. (4) COPD (chronic obstructive pulmonary disease): patient treated for a recent flare prior to this admission. COPD exacerbation is resolved. finished prednisone taper 06/23. uses 2L O2 via NC on as needed basis. patient is being referred to [facility] in [place] in the near-future to see if he is a Lung transplant candidate. follows with [facility] for his COPD. cont all usual inhalers, etc. can resume theophylline at hospital discharge. (5) CAD (coronary artery disease): no ischemic symptoms while hospitalized. cont coreg. plavix on hold in the event he has percutaneous drainage of his diverticular abscess and/or needs surgical intervention for his complicated diverticulitis. statin on hold as well. (6) Hx of deep venous thrombosis: H/o PE (2009) + DVT of R arm (2019), Eliquis x 6 mo, then discontinued heparin SC for DVT proph - 5000 units TID (7) Celiac disease: gluten free diet required when taking PO. (8) Hypertension: continue beta annabella. hold chlorthalidone. (9) Bipolar disorder, unspecified: continue home meds including depakote, olanzapine, etc. (10) History of aortic valve replacement: bioprosthetic. 2009 - [facility]. 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 consider checking IgG, IgA, and IgM levels and administering IVIG, if necessary. Admission HPI Per Admitting Provider Wild Thompson is a 68-year-old male with PMH of dementia, COPD, bipolar disorder, CAD, osteoporosis, GERD, HTN, HTN, aortic valve replacement, and gastritis. He presented on 06/20 for LLQ abdominal and right groin pain that started on Saturday 06/16 and has gradually worsened. The pain was not too bad on Tuesday, but then he developed a fever of 102.1 F on Tuesday. He took Tylenol and the fever did not return. He has been taking Tylenol intermittently over the past couple days for his pain, but he reports this has not been helping. The pain is located in his left lower quadrant, and he characterizes it as a constant pain that shoots across his stomach when he stands. He reports the pain is 9/10 at worst, and 6/10 while he is at rest. He reports he has never had pain like this before. No prior history of diverticulitis. The pain also radiates towards his groin and down his legs along with some numbness and tingling. No lower back pain. No urinary/bowel changes (no blood in the urine or stool or urinary/bowel incontinence). He reports he has been eating and drinking okay and has not had any nausea or vomiting. Patient did not take his regular morning medicine today; no recent change in medications. He manages his own medicine at home. He is on 2L NC as needed for his COPD; uses at at bedtime as well as BiPAP. He is currently being evaluated for a lung transplant at [facility]. He is a former tobacco cigarette smoker but quit in 2009. He denies any recent alcohol use. Allergy to NSAIDs. Patient is hypertensive at 146/71 at time of admission; SpO2 97% on 2L NC. ED course: Unasyn 3000 mg IV Morphine 4 mg IV Zofran 4 mg IV ROS: Patient endorses fever, chills, SOB at rest and with exertion and when talking (attributes to COPD), productive cough (cream color), pleuritic CP, LLQ abdominal pain, and numbness/tingling radiating from the LLQ of abdomen into the groin and down the legs. Patient denies dizziness, lightheadedness, chest pain, hemoptysis, nausea, vomiting, melena, diarrhea, constipation, blood in the urine/stool, changes in urinary/bowel habits, urinary/fecal incontinence, or lower back pain. Discharge Exam gen - NAD, pleasant, nontoxic, comfortable neck - no JVD mouth - MMM heart - RRR, s1 s2, no murmur lungs - mild end-exp wheezes b/l, no rales, no increased work of breathing abd - soft, mild tenderness LLQ, BS+, ND, no HSM; no peritoneal signs ext - no edema, pulses 2+ b/l psych - a/o x 3 Discharge Plan Discharge Items Patient Disposition: Transfer Acute Care Hospital Reason For Visit: ACUTE PERFORATED DIVERTICULITIS Discharge Diagnosis: 1. acute descending/sigmoid colon diverticulitis with perforation and abscess ( 7.5 x 2 x 2.5 cm) 2. COPD, with recent exacerbation - latter resolved 3. CAD 4. prior h/o DVT 5. prior h/o PE 6. celiac disease 7. history of aortic valve replacement 8. transaminitis - resolved 9. bipolar disorder Activity: Resume your previous activity Non-emergency contact: Primary Care Provider Call non-emergency contact if: you have any medication questions Follow-up/Referrals: Fanny Clark PA-C [Primary Care Provider] - Diet: Clear liquid and Gluten Free Addtl Attending Provider Instructions: Further instructions to follow after your stay at [facility]. I would like to thank Dr Pattie Franks and the medical team at [facility] for accepting Mr Thompson in transfer for ongoing care and IR drainage of his diverticular abscess. Pending Studies at Discharge: No Stand-Alone Forms: My [facility] Skilled Items Patient informed of condition?: Yes DNR: No Discharge Level of Care: Other Communicable Disease: No Discharge Prognosis: Stable Lines: Peripheral IV Urinary Catheter: No Medications and DC Order Prescriptions: New Zosyn in dextrose (iso-osm) 4.5 gram/100 mL piggyback 4.5 g IV Q8H Continued tiotropium bromide [Spiriva with HandiHaler] 18 mcg Capsule, W/Inhalation Device 1 cap INHALATION QAM 30 Days Qty: 30 ketotifen fumarate 0.025 % (0.035 %) drops 1 drp ophthalmic (eye) BID PRN (Reason: Eye Irritation) Rx Instructions: administer at least 8 hours apart teriparatide 20 mcg/dose (620mcg/2.48mL) pen injector 20 mcg subcut QAM calcium carb,[id number] 315-250-200 mg-unit-mg tablet 1 tab PO BID carbamide peroxide 6.5 % drops 5 drp otic (ear) DAILY Rx Instructions: Use for up to 4 days for ear wax cholecalciferol (vitamin D3) 25 mcg (1,000 unit) tablet 50 mcg PO QAM famotidine 20 mg tablet 20 mg PO QAM pantoprazole 40 mg tablet,delayed release (DR/EC) 40 mg PO QAM theophylline 400 mg Tablet Extended Release 24 Hr 400 mg PO BID albuterol sulfate [Proventil HFA] 90 mcg/actuation Hfa Aerosol Inhaler 2 puff INHALATION Q6H PRN (Reason: Shortness Of Breath) atorvastatin 80 mg Tablet 80 mg PO QAM ferrous sulfate 325 mg (65 mg iron) tablet 325 mg PO Q OTHER DAY chlorthalidone 25 mg Tablet 25 mg PO QPM Hold Instructions: Resume on 04/15/24. Hold until seen by primary care provider since your blood pressure has been running low while hospitalized ketoconazole 2 % Shampoo 1 applic TOPICAL Q OTHER DAY tamsulosin 0.4 mg Capsule 0.4 mg PO HS fluticasone propion-salmeterol 500-50 mcg/dose Blister With Device 1 inh INHALATION BID Ensure Liquid 1 ea PO QAM carvedilol 6.25 mg Tablet 6.25 mg PO BID Qty: 60 0RF olanzapine 10 mg Tablet 10 mg PO HS Qty: 30 0RF divalproex 250 mg Tablet Extended Release 24 Hr 250 mg PO BID Qty: 60 0RF clobetasol 0.05 % Cream 1 applic TOPICAL DAILY PRN (Reason: Rash) folic acid 1 mg Tablet 1 mg PO DAILY ezetimibe [Zetia] 10 mg Tablet 10 mg PO HS rivastigmine 4.6 mg/24 hour Patch 24 Hour 1 patch TRANSDERMAL DAILY Held clopidogrel [Plavix] 75 mg Tablet 75 mg PO QAM Hold Instructions: HOLDING for IR intervention of diverticular abscess Discontinued prednisone 10 mg tablet 10 mg PO DIRECTED Qty: 30 0RF Rx Instructions: see taper instructions: 5 tablets daily for 2 days, 4 tablets daily for 2 days, 3 tablets daily for 2 days, 2 tablets daily for 2 days, 1 tablet daily for 2 days and then stop Discharge Orders: Discharge Order (Routine); Ordered 06/25/24 Ordered By: Brian Navarro Admission Data Admit Date/Time: 06/20/24 13:56 Attending Provider: Brian Navarro Admit Provider: Goldy Shabazz Primary Care Provider: Fanny Clark Other Providers: Goldy Shabazz; Santosh Wisdom; [facility] Hospital Stay Data Consultations General Surgery Diagnostic Imagining Performed Abdomen/Pelvis CT 06/20/24 10:[address] WITH IV CONTRAST CT DOSE: 1076.21 mGy.cm HISTORY: Acute right lower quadrant abdominal pain RLQ abd pain TECHNIQUE: Multiaxial CT images of the abdomen and pelvis were performed following the IV administration of 94 cc of Optiray, A dose lowering technique was utilized adhering to the principles of ALARA. COMPARISON STUDY: 11/14/2023 FINDINGS: Cardiomegaly. Median sternotomy. Trace pleural effusions. Emphysema with mild bibasilar atelectasis. Mild upper abdominal pneumoperitoneum. Unremarkable spleen, moderately atrophic pancreas and adrenal glands. Cho lecystectomy with likely postsurgical biliary ductal dilation. Patent portal vein. No pneumatosis or portal venous gas identified. There are a few scattered hypodense foci of the kidneys measuring up to 2.2 cm on the right suggestive of cysts. No hydronephrosis. Unremarkable urinary bladder. Atherosclerosis of the aorta without aneurysm. No lymphadenopathy. No bowel obstruction. Colonic diverticulosis with a catheter. Diverticulitis of the descending colon and descending sigmoid junction. There is adjacent inflammatory stranding with peripheral enhancing air and fluid filled collection within the left paracolic gutter measuring 1.3 x 1.6 cm on image 195 series 3 extending for a length of approximately 10 cm. No drainable fluid collections. No CT evidence of acute appendicitis. Air and fluid-filled loops of small bowel measure up to approximately 3.3 cm suggestive of reactive ileus. No high-grade small bowel obstruction. 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 No acute fracture. IMPRESSION: 1. Acute perforated diverticulitis of the distal descending colon/descending sigmoid junction with pneumoperitoneum. 2. Pericolic fluid collection compatible with developing abscess which is not drainable secondary to small size in AP and transverse dimensions. 3. No bowel obstruction. 4. Pulmonary emphysema with trace pleural effusions. 5. Cholecystectomy. ACT 112: Negative or not required by law. The above report was generated using voice recognition software. It may contain grammatical, syntax or spelling errors. Electronically signed by: Humble Chowdhury M.D. 06/20/2024 12:23 PM Chest X-Ray 06/20/24 10:16 SINGLE VIEW CHEST CLINICAL HISTORY: Generalized abdominal pain. FINDINGS: 2 AP, portable, upright chest radiographs are compared to study dated 05/14/2024 and correlated with chest CT dated 11/14/2023. The the patient is status post midline sternotomy and cardiac valve surgery. The heart is enlarged but noting atherosclerotic calcification of the thoracic aorta. The pulmonary vasculature is noncongested. Emphysema and chronic interstitial thickening is similar to previous. Scarring/atelectasis is noted at both lung bases. No airspace consolidation or large pleural effusion is identified. No pneumothorax is seen. The bony thorax is grossly intact. A right shoulder arthroplasty is in place. Arthritic change is seen in the left shoulder. Cholecystectomy clips are noted in the right upper quadrant. IMPRESSION: Cardiomegaly and emphysema with no active disease in the chest. ACT 112: Negative or not required by law. Electronically signed by: Rc Hitchcock M.D. 06/20/2024 11:47 AM Abdomen/Pelvis CT 06/24/24 09:17 CT SCAN OF THE ABDOMEN AND PELVIS WITH IV CONTRAST CLINICAL HISTORY: Diverticulitis with abscess. COMPARISON STUDY: Abdominal CT dated 06/20/2024. TECHNIQUE: Following the IV administration of 94 cc of Optiray 320, CT scan of the abdomen and pelvis is performed from the lung bases to the proximal femora. Images are reviewed in the axial, sagittal, and coronal planes. IV contrast was administered without complication. A dose lowering technique was utilized adhering to the principles of ALARA. CT DOSE: 1112.81 mGy.cm FINDINGS: Lung bases: The patient is status post midline sternotomy. The heart is normal in size and without pericardial effusion. The coronary arteries are densely calcified. Advanced degenerative change is seen at the lung bases. There is bibasilar scarring/atelectasis. Trace pleural fluid is seen bilaterally. There is no airspace consolidation typical for pneumonia. A tiny hiatal hernia is noted. Liver: The contrast-enhanced liver is normal in size, contour, and attenuation. There is minimal central intrahepatic biliary ductal dilatation. The hepatic veins and portal veins are patent. Gallbladder: Surgically absent noting clips in the gallbladder fossa. Spleen: Normal in size and attenuation. Pancreas: There is moderate fatty atrophy of the pancreas which is otherwise grossly unremarkable. Adrenal glands: Unremarkable. Kidneys: The contrast enhanced kidneys are normal in size and without hydronephrosis. The kidneys enhance symmetrically. A right lower pole renal cyst measures 2.3 cm. Additional subcentimeter cortical hypodensities also likely represent cysts but are too small for definitive characterization. Abdominal vasculature: The abdominal aorta is normal in course and caliber noting advanced atherosclerotic calcification. Bowel: No bowel obstruction is seen. There is moderate diverticulosis of the left colon. Wall thickening and inflammation of the mid descending colon is consistent with acute diverticulitis. There is a thick-walled peripherally enh ancing serpiginous gas and fluid containing tract/collection seen posterior to the descending colon extending from axial images #[id number] with straining inflammation. This is consistent with a diverticular abscess or possibly fistula. This measures approximately 7.5 x 2 x 2.5 cm in aggregate dimension, and is overall similar in size to the 06/20/2024 examination. The appendix is well-visualized and normal. Peritoneum: Pneumoperitoneum has largely resolved. There is a fat-containing umbilical hernia. Trace free fluid in the pelvis is likely reactive. Lymphadenopathy: None. Pelvic viscera: The prostate gland is mildly enlarged and heterogeneous. The bladder is mildly distended, and the wall is thickened/trabeculated indicating chronic outlet obstruction. Skeletal structures: The skeletal structures are osteopenic. There is mild to moderate lumbosacral spondylosis. No lytic or blastic lesions are seen. IMPRESSION: 1. Again seen is diverticulitis of the descending colon. 2. Pneumoperitoneum has almost completely resolved. 3. There is a serpiginous thick walled gas and fluid containing tract/collection with surrounding inflammation posterior to the descending colon consistent with abscess/fistula. This is similar in size to 06/20/2024 examination. 4. Emphysema and trace pleural effusions. 5. Additional findings as above. ACT 112: Negative or not required by law. Electronically signed by: Rc Hitchcock M.D. 06/24/2024 1:15 PM Discharge Instructions Given to Patient (Per Discharging Provider) Further instructions to follow after your stay at [facility]. I would like to thank Dr Pattie Franks and the medical team at [facility] for accepting Mr Thompson in transfer for ongoing care and IR drainage of his diverticular abscess. Total Time Total Time Spent Total Time Spent (In Minutes): 70 Coding Level of Care Code 20957 INP/OBS DISCH >30 MIN Diagnoses Colonic diverticular abscess K57.20 Perforation of sigmoid colon due to diverticulitis K57.20 Transaminitis R74.01 Pulmonary emphysema, unspecified emphysema type J43.9 COPD type: emphysema Emphysema type: unspecified CAD (coronary artery disease) I25.10 Hx of deep venous thrombosis Z86.718 Celiac disease K90.0 Hypertension I10 Bipolar disorder, unspecified F31.9 History of aortic valve replacement Z95.2 Immunoglobulin G deficiency D80.3
[2024-06-25 19:24] VITALS: BP 147/78
[2024-06-25 19:52] VITALS: PULSE 70; RESP 16; O2SAT 96
== END 2024-06-25 21:38 | disposition short-term general hospital (02) | DRG 392 ==
LOC: ED 09:51 → EDINP 13:56 → SUATTDRO 13:56 → 2W 17:37

== ENCOUNTER 2024-10-16 11:18 | Observation (INO) ==
[2024-10-16 11:52] LABS: Basophils # (auto) 0.04 K/uL (0.00-0.20); Basophils % (auto) 0.7 %; Eosinophils # (auto) 0.02 K/uL (0.00-0.50); Eosinophils % (auto) 0.3 %; Hematocrit (blood only) 39.2 % (42.0-52.0); Hemoglobin 13.5 g/dl (14.0-18.0); Immature Granulocytes % (auto) 3.4 %; Lymphocytes # (auto) 1.27 K/uL (1.20-3.40); Lymphocytes % (auto) 21.5 %; Mean Corpuscular Hemoglobin 30.4 pg (25.0-34.0); Mean Corpuscular Hgb Conc 34.4 g/dL (32.0-36.0); Mean Corpuscular Volume 88.3 fL (80.0-100.0); Mean Platelet Volume 9.3 fL (9.4-12.4); Monocytes # (auto) 0.59 K/uL (0.11-0.59); Neutrophils % (auto) 64.1 %; Platelet Count 159 K/uL (130-400); RDW Coefficient of Variation 12.8 % (11.5-14.5); RDW Standard Deviation 41.4 fL (36.4-46.3); Red Blood Count 4.44 M/uL (4.70-6.10); White Blood Count 5.92 K/ul (4.8-10.8)
--- NOTE | 2024-10-16 12:02 | XRay Report ---
XR chest 1V portable CLINICAL HISTORY: Dyspnea COMPARISON STUDY: Chest CT November 14, 2023. Chest radiograph June 20, 2024. FINDINGS: Right shoulder arthroplasty, prosthetic aortic valve and median sternotomy wires are incide ntally noted. There is no pneumothorax or pleural effusion. Cardiomediastinal silhouette is stable. T here is no consolidation or evidence for pulmonary edema. There is underlying emphysema. IMPRESSION: No acute cardiopulmonary findings. No significant change in appearance of the chest. ACT 112: Negative or not required by law. Electronically signed by: Ghulam Franco M.D. 10/16/2024 12:01 PM
[2024-10-16 12:13] LABS: Bilirubin,Total 0.6 mg/dl (0.2-1.0); Calcium 9.7 mg/dl (8.6-10.3); Magnesium 2.1 mg/dl (1.7-2.4)
[2024-10-16 12:19] LABS: Appearance Urine Clear (Clear); Bilirubin Urine Negative (Negative); Blood Urine Negative (Negative); Color Urine Yellow; Glucose Urine UA Negative (Negative); Ketones Urine Negative (Negative); Leukocyte Esterase Urine Negative (Negative); Nitrite Urine Negative (Negative); Protein Urine Negative (Negative); Specific Gravity Urine 1.017 (1.000-1.030); Urobilinogen Urine Negative (Negative); pH Urine 6.5 (4.5-7.5)
[2024-10-16 12:19] LABS: Albumin Globulin Ratio 1.2 (0.9-2); BUN Creatinine Ratio 29.4 (10-20); Creatinine Clr Calc Pharmacy 67.3 ml/min; Globulin 3.3 gm/dl (2.5-4.0); Total Protein 7.3 gm/dl (6.0-8.3)
[2024-10-16 12:23] LABS: Troponin I High Sensitivity 11.4 pg/ml (0-20)
--- NOTE | 2024-10-16 12:35 | Electrocardiogram Report ---
Test Reason : Blood Pressure : */* mmHG Vent. Rate : 58 BPM Atrial Rate : 58 BPM P-R Int : 154 ms QRS Dur : 130 ms QT Int : 426 ms P-R-T Axes : 46 -48 76 degrees QTcB Int : 418 ms Sinus bradycardia Right bundle branch block Left anterior fascicular block Bifascicular block Abnormal ECG When compared with ECG of 14-May-2024 03:53, Left anterior fascicular block is now Present Non-specific change in ST segment in Inferior leads T wave inversion no longer evident in Inferior leads Confirmed by Joao Jean ([id number]) on 10/16/2024 12:34:32 PM Referred By: Confirmed By: Joao Jean
[2024-10-16 12:42] LABS: Adenovirus PCR Not Detected (NotDetected); Bordetella parapertussis PCR Not Detected (NotDetected); Bordetella pertussis PCR Not Detected (NotDetected); Chlamydia pneumoniae PCR Not Detected (NotDetected); Coronavirus 229E PCR Not Detected (NotDetected); Coronavirus CoV-2 (COVID19)PCR Not Detected (NotDetected); Coronavirus HKU1 PCR Not Detected (NotDetected); Coronavirus NL63 PCR Not Detected (NotDetected); Coronavirus OC43PCR Not Detected (NotDetected); Human Metapneumovirus PCR Not Detected (NotDetected); Influenza A PCR Not Detected (NotDetected); Influenza B PCR Not Detected (NotDetected); Mycoplasma pneumoniae PCR Not Detected (NotDetected); Parainfluenza Virus 1 PCR Not Detected (NotDetected); Parainfluenza Virus 2 PCR Not Detected (NotDetected); Parainfluenza Virus 3 PCR Not Detected (NotDetected); Parainfluenza Virus 4 PCR Not Detected (NotDetected); Respiratory Syncytial VirusPCR Not Detected (NotDetected); Rhinovirus/Enterovirus PCR Not Detected (NotDetected)
--- NOTE | 2024-10-16 12:46 | Emergency Department Note ---
Impression & Plan Acute exacerbation of chronic obstructive pulmonary disease ED Provider Note Provider: Tc Breaux MD CHIEF COMPLAINT: Breathing issues HISTORY OF PRESENT ILLNESS: Patient is a 68-year-old gentleman history of stage IV COPD presenting here today referred from pulmonary rehab clinic. Patient has extensive COPD but is not on oxygen normally. See is not had significant fevers or productive cough or sore throat. States he was in the [facility] last month for several days for breathing issues and was treated for an exacerbation in July. Is chronically on steroids in addition to his other breathing medication and theophylline. States the last several days has been more short of breath but they are concerned a pulmonary rehab today with his breathing and less in him here. Gets short of breath with exertion. No swelling or calf pain. Maybe a little bit of facial swelling only noted by the patient as it is gone chronic 40 mg prednisone steroid. States he is undergoing evaluation for possible lung transplant at [place] but he needs to complete pulmonary rehab for this. States he does not feel ill just that his breathing is flaring again. Is frustrated that he just wants to try to get well enough that he could proceed with further treatments particulate lung transplant. Does follow with pulmonary locally last saw them in July. PAST MEDICAL HISTORY: As noted above MEDICATIONS: Reviewed home medications SOCIAL HISTORY: Former smoker PHYSICAL EXAM: GENERAL: alert and oriented in no acute distress on stretcher Head: normocephalic and atraumatic EYES: No injection, discharge or icterus. NECK: Trachea midline. ENT: Mucous membranes pink and moist. LUNGS: Airway patent. No retractions. Breath sounds with some expiratory wheeze HEART: Regular rate and rhythm. No chest wall tenderness ABDOMEN: Soft and non-tender, without guarding or rebound. SKIN: Acyanotic, warm, dry, without rashes EXTREMITIES: Without swelling, tenderness or deformity NEUROLOGICAL: No focal deficits. No aphasia. No facial droop or slurred speech.Ambulatory. EK bpm sinus bradycardia with right bundle branch left anterior fascicular block. No clear acute ST segment elevation with some anterior T wave inversions QTc of 418. CONTINUOUS CARDIAC MONITORING: was ordered and showed a heart rate of 50s to 70s bpm in sinus bradycardia to normal sinus rhythm Patient's laboratory studies and imaging reviewed. Differential includes Reactive airway disease, pneumonia, pneumothorax, COPD, CHF, infections, cardiac ischemia, pulmonary embolism, musculoskeletal, gastrointestinal, as well as other pathologies. IMPRESSION/MEDICAL DECISION MAKING: Does sound wheezy. Respiratory viral panel completed as well as chest x-ray. Does not seem fluid overload on exam. Little bit of facial swelling likely related to his prednisone use chronically. Will give additional DuoNeb and some additional IV steroids he states this has helped some in the past. Uses nebulizer earlier today. EKG and troponin sent but negative and I doubt cardiac etiology. Respiratory viral panel negative. No significant electrolyte abnormality signs of significant leukocytosis. Not severely anemic. No evidence clinically of DVT. Doubt with his wheeze that this is underlying PE. Feel unfortunately he has had an end-stage process of COPD. Not hypoxic at rest. In discussion with him given that he has had improvement with some higher high dose IV steroids in the past, will discuss with the hospitalist further observation here for short course of IV steroids to see if this improves his breathing. Again he wishes to try to optimize and enough he is able to complete 2 additional days of pulmonary rehab and then undergo listing for lung transplant in [place]. Discussed with the hospitalist team. DIAGNOSIS: Acute COPD exacerbation, dyspnea on exertion DISPOSITION: Hospitalist will evaluate Patient was agreeable with this plan. 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 at [facility] [place] Colonic diverticular abscess Nausea and vomiting Change in bowel habits Domestic problems (Acute) Anxiety (Acute) Osteoporosis History of colon polyps Gastritis Elevated troponin (Acute) Acute hypokalemia (Acute) Intractable nausea and vomiting (Acute) S/P trigger finger release Dementia stage 3 Trigger finger, right ring finger Trigger thumb of right hand AMS (altered mental status) Encounter for pre-operative examination COVID (Acute) Other instability, left elbow Rotator cuff tear, left Celiac disease Encounter for pre-operative examination Abnormal EKG (Acute) Hypercalcemia (Acute) Vomiting (Acute) Acute duodenitis (Acute) COPD with acute exacerbation (Acute) Restless leg Anemia (Acute) Chronic pain PATTON (dyspnea on exertion) Status post reverse arthroplasty of right shoulder (~04/2020) BPH (benign prostatic hyperplasia) GERD (gastroesophageal reflux disease) Well controlled and stable Hypertension Hyperlipidemia Hx of venous thrombosis and embolism (Acute) Bipolar disorder, unspecified (Acute) Weight loss Pulmonary nodule Hemostasis disorder (Acute) COPD (chronic obstructive pulmonary disease) (Acute) COPD (chronic obstructive pulmonary disease) (Chronic) Heart disease (Chronic) Severe recurrent major depression without psychotic features (Acute 04/19/11) Acute exacerbation of chronic obstructive airways disease (Acute 02/07/11) Generalized anxiety disorder (Chronic 03/31/11) Medical History Diverticulitis large intestine Transaminitis Perforation of sigmoid colon due to diverticulitis Acute exacerbation of chronic obstructive pulmonary disease Hx of deep venous thrombosis (2018) rightT ARM 2019 (TREATED WITH ELIQUIS)- on AC x 6 months- then d/c'ed- no issues since. Did follow with heme- no known clotting issues - felt secondary to A-port- A port removed. Bipolar affective disorder in remission RBBB (right bundle branch block with left anterior fascicular block) CAD (coronary artery disease) COPD (chronic obstructive pulmonary disease) Pulmonary nodule 1 cm or greater in diameter Restless leg RBBB (right bundle branch block with left anterior fascicular block) Heart disease GERD (gastroesophageal reflux disease) PATTON (dyspnea on exertion) CAD (coronary artery disease) Hx of colonic polyps Dementia per chart, pt. was able to complete PAT interview with ease Osteoporosis Bipolar affective disorder in remission Hx pulmonary embolism (2009) Manic episode (03/2024) reports manic depressive at beginning of march, resolved Insomnia On anticoagulant therapy plavix daily Hx of non-ST elevation myocardial infarction (NSTEMI) (2019) "debateable" History of COVID-19 (2021) diagnosed 02/04/22 via home test only--cough, fatigue, muscle aches, runny nose--no symptoms now Celiac disease On home oxygen therapy 2L prn PVD (peripheral vascular disease) S/p angioplasties. On Plavix- cannot tolerate ASA Anxiety and depression Hearing deficit b/l perez's Aortic valve defect Had AVR secondary to AR per patient "HAS MINIMAL LEAKING FROM PROSTHETIC COW AORTIC VALVE" Lung nodules Following with pulm Sleep apnea cpap with 2L at hs Chronic obstructive pulmonary disease stage 4 COPD, on prednisone maintenance program, currently going thru eval for lung transplant list Asthma Well controlled - inhalers daily and prn--nebulizer prn Surgical History Hx of colonoscopy with polypectomy Status post trigger finger release 05/2023 @ [facility]--right thumb/ring finger History of transesophageal echocardiography (MELISSA) (~08/16/19) History of cardiac cath (~05/15/19) @ [facility] with Dr. Ji, no stents, no UT, History of vascular access device infuasport placed and removed in past for IGG History of umbilical hernia repair History of right inguinal hernia repair History of cholecystectomy History of esophagogastroduodenoscopy (EGD) History of phacoemulsification of cataract of both eyes with intraocular lens implantation History of angioplasty LEs and hand History of aortic valve replacement (2009) 2009 @ [facility] -follows with Dr. Ji in [place] History of bronchoscopy Family History Father Family history of diabetes mellitus Other No family history of adverse response to anesthesia Social History Smoking Status: Former smoker Tobacco Type: Cigarettes Age Started Using Tobacco: 14; Age Quit Using Tobacco: 54; Second Hand Exposure: No; Do You Dip or Chew Tobacco: No; Hx Alcohol Use: No Hx Substance Use: No Preferred Language: Mohawk Communication Ability: Effective Weaving Professor Required: No Beliefs That Will Affect Care: None marital status: Current Living Situation: Spouse Current Living Situation Comment: Lives with and son Feels Safe at Home: Yes Gender Identity: Male Assistive Devices: CPAP, Denture - Upper, Denture - Lower, Hearing Aid - Left and Hearing Aid - Right Allergies Allergies Allergy/AdvReac Type Severity Reaction Status Date / Time gluten Allergy Severe celiac Verified 09/18/24 09:31 disease wheat Allergy Severe celiac Verified 09/18/24 09:31 disease NSAIDS (Non-Steroidal Allergy Intermediate Hives Verified 09/18/24 09:31 Anti-Inflamma aspirin Allergy Mild RASH,HIVES Verified 09/18/24 09:31 lisinopril Allergy Mild Hives Verified 09/18/24 09:31 naproxen [From Naprosyn] Allergy Mild Hives Verified 09/18/24 09:31 Home Meds Home Medications Medication Instructions Recorded Confirmed atorvastatin 80 mg tablet 80 mg PO QAM 01/16/19 10/16/24 theophylline 400 mg 400 mg PO BID 01/16/19 10/16/24 tablet,extended release 24 hr ferrous sulfate 325 mg (65 mg 325 mg PO Q OTHER DAY 12/11/20 10/16/24 iron) tablet clopidogrel 75 mg tablet (Plavix) 75 mg PO QAM 04/08/22 10/16/24 clobetasol 0.05 % topical cream 1 applic topical DAILY PRN Rash 11/14/23 10/16/24 ezetimibe 10 mg tablet (Zetia) 10 mg PO HS 11/14/23 10/16/24 folic acid 1 mg tablet 1 mg PO DAILY 11/14/23 10/16/24 rivastigmine 4.6 mg/24 hour 1 patch transdermal DAILY 11/14/23 10/16/24 transdermal patch ketotifen fumarate 0.025 % (0.035 1 drp ophthalmic (eye) BID PRN Eye 12/13/23 10/16/24 %) eye drops Irritation chlorthalidone 25 mg tablet 25 mg PO QPM 01/03/24 10/16/24 calcium 315 mg-vitamin D3 250 1 tab PO BID 02/28/24 10/16/24 unit-phytosterols 200 mg tablet cholecalciferol (vitamin D3) 25 50 mcg PO QAM 02/28/24 10/16/24 mcg (1,000 unit) tablet famotidine 20 mg tablet 20 mg PO QAM 02/28/24 10/16/24 pantoprazole 40 mg tablet,delayed 40 mg PO QAM 02/28/24 10/16/24 release teriparatide 20 mcg/dose (620 20 mcg subcut QA 02/28/24 10/16/24 mcg/2.48 mL) subcutaneous pen injector food supplemt, lactose-reduced 1 ea PO QAM 04/06/24 10/16/24 (Ensure oral liquid) ketoconazole 2 % shampoo 1 applic topical Q OTHER DAY 04/06/24 10/16/24 tamsulosin 0.4 mg capsule 0.4 mg PO HS 04/06/24 10/16/24 Previous Rx's Medication Instructions Recorded carvedilol 6.25 mg tablet 6.25 mg PO BID #60 tabs 04/08/24 divalproex 250 mg tablet,extended 250 mg PO BID #60 tabs 04/08/24 release 24 hr olanzapine 10 mg tablet 10 mg PO HS #30 tabs 04/08/24 albuterol sulfate 90 mcg/actuation 2 puff inhalation Q6H PRN 07/13/24 aerosol inhaler Shortness Of Breath #8.5 grams ensifentrine 3 mg/2.5 mL 3 mg (2.5 mL) inhalation BID #150 07/13/24 suspension for nebulization mL fluticasone 500 mcg-salmeterol 50 1 inh inhalation BID #60 ea 07/13/24 mcg/dose blistr powdr for inhalation tiotropium bromide 18 mcg capsule 1 cap inhalation QAM 30 days #30 07/13/24 with inhalation device (Spiriva caps with HandiHaler) dicyclomine 20 mg tablet 20 mg PO QID #20 tabs 07/18/24 Discontinue DME #1 ea 10/05/24 roflumilast 500 mcg tablet 500 mcg PO DAILY #30 tabs 10/10/24 azithromycin 500 mg tablet 500 mg PO .COMPLEX #36 tabs 10/11/24 Results & Data (ED) Vital Signs Vital Signs - 24 hr 10/16/24 11:20 10/16/24 11:30 10/16/24 11:31 Temperature 36.4 C L Temperature Source Temporal Artery Scan Pulse Rate 75 67 Pulse Rate [Apical] 77 Respiratory Rate 22 23 Respiratory Effort / Characteristics Non-Labored Spontaneous Respiratory Depth Normal Blood Pressure 157/80 H Blood Pressure Mean 105 Pulse Oximetry 96 99 Oxygen Delivery Method Room Air Room Air Sepsis Recent Fever Within 48 Hours No Sepsis New/Unexplained Change in Mental Status N/A Sepsis Action Taken by Nursing No Action Required 10/16/24 11:31 10/16/24 11:31 10/16/24 12:00 Temperature Temperature Source Pulse Rate 60 64 Pulse Rate [Apical] Respiratory Rate 16 18 Respiratory Effort / Characteristics Respiratory Depth Blood Pressure 147/85 H 154/89 H Blood Pressure Mean 103 115 Pulse Oximetry 99 98 99 Oxygen Delivery Method Room Air Room Air Room Air Sepsis Recent Fever Within 48 Hours Sepsis New/Unexplained Change in Mental Status Sepsis Action Taken by Nursing 10/16/24 13:02 Temperature Temperature Source Pulse Rate 58 L Pulse Rate [Apical] Respiratory Rate 16 Respiratory Effort / Characteristics Respiratory Depth Blood Pressure 160/79 H Blood Pressure Mean 105 Pulse Oximetry 99 Oxygen Delivery Method Room Air Sepsis Recent Fever Within 48 Hours Sepsis New/Unexplained Change in Mental Status Sepsis Action Taken by Nursing Laboratory Data 10/16/24 11:34 10/16/24 11:34 Lab Results 10/16/24 10/16/24 10/16/24 Range/Units 11:34 11:35 11:50 WBC 5.92 (4.8-10.8) K/ul RBC 4.44 L (4.70-6.10) M/uL Hgb 13.5 L (14.0-18.0) g/dl Hct 39.2 L (42.0-52.0) % MCV 88.3 (80.0-100.0) fL MCH 30.4 (25.0-34.0) pg MCHC 34.4 (32.0-36.0) g/dL RDW Std Deviation 41.4 (36.4-46.3) fL RDW Coeff of Rosario 12.8 (11.5-14.5) % Plt Count 159 (130-400) K/uL MPV 9.3 L (9.4-12.4) fL Immature Gran % (Auto) 3.4 % Neut % (Auto) 64.1 % Lymph % (Auto) 21.5 % Alfalfa % (Auto) 10.0 % Eos % (Auto) 0.3 % Baso % (Auto) 0.7 % Neut # (Auto) 3.80 (1.40-6.50) K/uL Lymph # (Auto) 1.27 (1.20-3.40) K/uL Alfalfa # (Auto) 0.59 (0.11-0.59) K/uL Eos # (Auto) 0.02 (0.00-0.50) K/uL Baso # (Auto) 0.04 (0.00-0.20) K/uL Immature Gran # (Auto) 0.20 (0.01-0.20) K/uL PT 9.9 (9.0-12.0) Seconds INR 0.9 (0.9-1.1) APTT < 20 L (21-31) Seconds PTT Ratio 0.7 Sodium 138 (136-145) mmol/L Potassium 4.0 (3.5-5.1) mmol/L Chloride 100 (98-107) mmol/L Carbon Dioxide 31 (21-32) mmol/L Anion Gap 7 (3-11) BUN 30 H (6-23) mg/dl Creatinine 1.02 (0.6-1.4) mg/dl Est Cr Clr Drug Dosing 67.3 ml/min eGFR 79.56 BUN/Creatinine Ratio 29.4 H (10-20) Glucose 82 (70-99(Fasting)) mg/dl Calcium 9.7 (8.6-10.3) mg/dl Magnesium 2.1 (1.7-2.4) mg/dl Total Bilirubin 0.6 (0.2-1.0) mg/dl AST 23 (13-39) U/L ALT 21 (7-52) U/L Alkaline Phosphatase 53 (34-104) U/L Troponin I High Sens 11.4 (0-20) pg/ml Total Protein 7.3 (6.0-8.3) gm/dl Albumin 4.0 (3.4-5.0) gm/dl Globulin 3.3 (2.5-4.0) gm/dl Albumin/Globulin Ratio 1.2 (0.9-2) Urine Color Yellow Urine Appearance Clear (Clear) Urine pH 6.5 (4.5-7.5) Ur Specific Stedman 1.017 (1.000-1.030) Urine Protein Negative (Negative) Urine Glucose (UA) Negative (Negative) Urine Ketones Negative (Negative) Urine Blood Negative (Negative) Urine Nitrite Negative (Negative) Urine Bilirubin Negative (Negative) Urine Urobilinogen Negative (Negative) Ur Leukocyte Esterase Negative (Negative) IgG 1485.5 (635-1741) mg/dl IgA 169.2 (70-400) mg/dl IgM 86.9 (45-281) mg/dl Adenovirus (PCR) Not Detected (NotDetected) B. pertussis DNA (PCR) Not Detected (NotDetected) B.parapertussis DNA PCR Not Detected (NotDetected) C. pneumoniae DNA (PCR) Not Detected (NotDetected) Coronavirus OC43 (PCR) Not Detected (NotDetected) Coronavirus HKU1 (PCR) Not Detected (NotDetected) Coronavirus 229E (PCR) Not Detected (NotDetected) SARS-CoV-2 (PCR) Not Detected (NotDetected) Coronavirus NL63 (PCR) Not Detected (NotDetected) Human Metapneumovir PCR Not Detected (NotDetected) Influenza Type A (PCR) Not Detected (NotDetected) Influenza Type B (PCR) Not Detected (NotDetected) M. pneumoniae (PCR) Not Detected (NotDetected) Parainfluenza 1 (PCR) Not Detected (NotDetected) Parainfluenza 2 (PCR) Not Detected (NotDetected) Parainfluenza 3 (PCR) Not Detected (NotDetected) Parainfluenza 4 (PCR) Not Detected (NotDetected) RSV (PCR) Not Detected (NotDetected) Entero/Rhino (PCR) Not Detected (NotDetected) Administered Medications Discontinued Medications Albuterol (Albut/Ipratrop 3mg/0.5mg Neb 3 Ml Vial) 12 ml NEB ONE ONE; Protocol Stop: 10/16/24 12:39 Last Admin: 10/16/24 12:53 Dose: 12 ml Documented By: QGV Methylprednisolone (Methylprednisolone 125 Mg/2 Ml Vial) 125 mg IV NOW STA Stop: 10/16/24 12:39 Last Admin: 10/16/24 12:53 Dose: 125 mg Documented By: QGV Imaging Data Radiologist's Impression: Chest X-Ray 10/16/24 11:31 XR chest 1V portable CLINICAL HISTORY: Dyspnea COMPARISON STUDY: Chest CT November 14, 2023. Chest radiograph June 20, 2024. FINDINGS: Right shoulder arthroplasty, prosthetic aortic valve and median sternotomy wires are incidentally noted. There is no pneumothorax or pleural effusion. Cardiomediastinal silhouette is stable. There is no consolidation or evidence for pulmonary edema. There is underlying emphysema. IMPRESSION: No acute cardiopulmonary findings. No significant change in appearance of the chest. ACT 112: Negative or not required by law. Electronically signed by: Ghulam Franco M.D. 10/16/2024 12:01 PM Discharge Plan Visit Data Chief Complaint: Shortness of Breath/Dyspnea Stated Complaint: SOB, COPD ED Provider: Tc Breaux Discharge Problem: Acute exacerbation of chronic obstructive pulmonary disease Patient Disposition: Admitted As Inpatient Discharge Instructions Interventions: ED Discharge Assessment Last Done: 10/16/24 15:03
[2024-10-16 12:47] LABS: INR 0.9 (0.9-1.1); Partial Thromboplastin Ratio 0.7; Prothrombin Time 9.9 Seconds (9.0-12.0)
[2024-10-16 12:48] LABS: Partial Thromboplastin Time < 20 Seconds (21-31)
[2024-10-16] MEDS: ALBUT/IPRATROP 3MG/0.5MG NEB 3 ML VIAL NEB ONE (12:53)
[2024-10-16] MEDS: methylPREDNISolone 125 MG/2 ML VIAL IV STA (12:53)
--- NOTE | 2024-10-16 13:02 | History & Physical Report ---
Date of Service October 16, 2024 Assessment & Plan (1) Acute exacerbation of chronic obstructive pulmonary disease: Plan: Wild Thompson is a 68-year-old male with past medical history of stage IV COPD pending potential transplant at [facility], CAD, diverticulitis with perforation, GERD, celiac who presents with acute on chronic COPD exacerbation. He has end- stage COPD and is pending transplant evaluation at [facility] and case is being reviewed by the transplant [facility] 10/16/2024. He presents with recurrent wheezing and an exacerbation, has no no fever/chills/sweats/productive cough or leukocytosis to suggest underlying pneumonia or acute infection Acute on chronic COPD Gold class E COPD. He is pending a lung transplant evaluation at [facility] [place] PFTs 04/2024: FVC 3.77 L (73%), FEV1 1.15 L (46%), FEV1/FVC 31%. Severe obstructive disease. - Worsening dyspnea, exertion limitation, and wheezing. No hypoxia. Multiple recurrent symptoms with attempted steroid weeks over the last several weeks. Does not appear infected Continue Breo(formulary substitution)/Spiriva on admission. Continue theophylline twice daily. This and narrow TI has been discussed with him on prior evaluations with his hvac r tech - Was pending discussion on ensifentrine at next appointment, has not yet started this. Pulm consulted - In process of working on a lung transplant through [facility]. Case is being presented at transplant board today. Dr. Gallo is the hvac r tech there reviewing. Patient is improving and stable on nebulizer at time of assessment. Will continue methylprednisolone 40 mg twice daily, did receive a methylprednisolone 125 fluid in the ER Optimize mag 2.0 Will check for hypogammaglobulinemia and if IgG levels are low--> ?additional IVIG infusion DuoNebs every 4 hours as needed, epidural every 2 hours as needed as needed - Continue MWF Azithromycin 500mg Continue Roflumilast Hypogammaglobulinemia [facility] IgG/A/M levels pending CAD, hypertension Continue Plavix, carvedilol 12.5 mg twice daily, atorvastatin 80 mg, chlorthalidone Patient denies history of TX/STEMI/NSTEMI/CHF Chronic Stable Issues: - Former tobacco abuse: [id number] history in remission since 2009, noted - Anxiety/MDD: Olanzapine continued - GERD: PPI continued DVT prophylaxis: Heparin Disposition: MSO CODE STATUS: Full code Diet: Heart healthy (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 EKG: Sinus bradycardia, right bundle branch block, left anterior fascicular block Wild was at pulmonary rehab. They were concerned last but was OK and came back for pulm rehab today. Had his last COPD exacerbation in July and was given IV steroids at the time and nebulizers which helped. 3 weeks ago had another exacerbation while getting his IVIG infusion at [facility] and was admitted for 2 days, treated with IV steroids and nebulizers. After that dc was put on a prednisone taper, 10 days ago got worse again so restarted a 40mg taper, got to 20 and worsened, was put back at 40mg and improved, went down to 30mg for three days but again worsened and took 40mg today. No fevers, chills or sweats. Minimal clear sputum 'almost nothing' when he does cough No night sweats No chest pain or chest pressure Wheezing which correlates with his shortness of breath No nausea, vomiting, or diarrhea Feels better while on nebulizer at time of ER assessment Using his nebulizer QID at home Currently on Spiriva and Symbicort Also on THeophylline Was pending discussion on ensifentrine at next appointment, has not yet started this In process of working on a lung transplant through [facility]. Case is being presented at transplant board today. Dr. Gallo is the hvac r tech there reviewing. Medical History: Reviewed Medications: Reviewed Surgical History: Reviewed Family history: Reviewed Allergies: Reviewed. NSAIDS, ASA, wheat/gluten Social History: No current tobacco use, rare social etoh use. Code Status: Fuxll Code Allergies Allergy/AdvReac Type Severity Reaction Status Date / Time gluten Allergy Severe celiac Verified 09/18/24 09:31 disease wheat Allergy Severe celiac Verified 09/18/24 09:31 disease NSAIDS (Non-Steroidal Allergy Intermediate Hives Verified 09/18/24 09:31 Anti-Inflamma aspirin Allergy Mild RASH,HIVES Verified 09/18/24 09:31 lisinopril Allergy Mild Hives Verified 09/18/24 09:31 naproxen [From Naprosyn] Allergy Mild Hives Verified 09/18/24 09:31 Home Medications Medication Instructions Recorded Confirmed Type atorvastatin 80 mg tablet 80 mg PO QAM 01/16/19 10/16/24 History theophylline 400 mg 400 mg PO BID 01/16/19 10/16/24 History tablet,extended release 24 hr ferrous sulfate 325 mg (65 mg 325 mg PO Q OTHER DAY 12/11/20 10/16/24 History iron) tablet clopidogrel 75 mg tablet (Plavix) 75 mg PO QAM 04/08/22 10/16/24 History clobetasol 0.05 % topical cream 1 applic topical DAILY PRN Rash 11/14/23 10/16/24 History ezetimibe 10 mg tablet (Zetia) 10 mg PO HS 11/14/23 10/16/24 History folic acid 1 mg tablet 1 mg PO DAILY 11/14/23 10/16/24 History rivastigmine 4.6 mg/24 hour 1 patch transdermal DAILY 11/14/23 10/16/24 History transdermal patch ketotifen fumarate 0.025 % (0.035 1 drp ophthalmic (eye) BID PRN Eye 12/13/23 10/16/24 History %) eye drops Irritation chlorthalidone 25 mg tablet 25 mg PO QPM 01/03/24 10/16/24 History calcium 315 mg-vitamin D3 250 1 tab PO BID 02/28/24 10/16/24 History unit-phytosterols 200 mg tablet cholecalciferol (vitamin D3) 25 50 mcg PO QAM 02/28/24 10/16/24 History mcg (1,000 unit) tablet famotidine 20 mg tablet 20 mg PO QAM 02/28/24 10/16/24 History pantoprazole 40 mg tablet,delayed 40 mg PO QAM 02/28/24 10/16/24 History release teriparatide 20 mcg/dose (620 20 mcg subcut QAM 02/28/24 10/16/24 History mcg/2.48 mL) subcutaneous pen injector food supplemt, lactose-reduced 1 ea PO QAM 04/06/24 10/16/24 History (Ensure oral liquid) ketoconazole 2 % shampoo 1 applic topical Q OTHER DAY 04/06/24 10/16/24 History tamsulosin 0.4 mg capsule 0.4 mg PO HS 04/06/24 10/16/24 History carvedilol 6.25 mg tablet 6.25 mg PO BID #60 tabs 04/08/24 10/16/24 Rx divalproex 250 mg tablet,extended 250 mg PO BID #60 tabs 04/08/24 10/16/24 Rx release 24 hr olanzapine 10 mg tablet 10 mg PO HS #30 tabs 04/08/24 10/16/24 Rx albuterol sulfate 90 mcg/actuation 2 puff inhalation Q6H PRN 07/13/24 10/16/24 Rx aerosol inhaler Shortness Of Breath #8.5 grams ensifentrine 3 mg/2.5 mL 3 mg (2.5 mL) inhalation BID #150 07/13/24 10/16/24 Rx suspension for nebulization mL fluticasone 500 mcg-salmeterol 50 1 inh inhalation BID #60 ea 07/13/24 10/16/24 Rx mcg/dose blistr powdr for inhalation tiotropium bromide 18 mcg capsule 1 cap inhalation QAM 30 days #30 07/13/24 10/16/24 Rx with inhalation device (Spiriva caps with HandiHaler) dicyclomine 20 mg tablet 20 mg PO QID #20 tabs 07/18/24 10/16/24 Rx Discontinue DME #1 ea 10/05/24 Rx roflumilast 500 mcg tablet 500 mcg PO DAILY #30 tabs 10/10/24 10/16/24 Rx azithromycin 500 mg tablet 500 mg PO .COMPLEX #36 tabs 10/11/24 10/16/24 Rx 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 at [facility] Colonic diverticular abscess Nausea and vomiting Change in bowel habits Domestic problems (Acute) Anxiety (Acute) Osteoporosis History of colon polyps Gastritis Elevated troponin (Acute) Acute hypokalemia (Acute) Intractable nausea and vomiting (Acute) S/P trigger finger release Dementia stage 3 Trigger finger, right ring finger Trigger thumb of right hand AMS (altered mental status) Encounter for pre-operative examination COVID (Acute) Other instability, left elbow Rotator cuff tear, left Celiac disease Encounter for pre-operative examination Abnormal EKG (Acute) Hypercalcemia (Acute) Vomiting (Acute) Acute duodenitis (Acute) COPD with acute exacerbation (Acute) Restless leg Anemia (Acute) Chronic pain PATTON (dyspnea on exertion) Status post reverse arthroplasty of right shoulder (~04/2020) BPH (benign prostatic hyperplasia) GERD (gastroesophageal reflux disease) Well controlled and stable Hypertension Hyperlipidemia Hx of venous thrombosis and embolism (Acute) Bipolar disorder, unspecified (Acute) Weight loss Pulmonary nodule Hemostasis disorder (Acute) COPD (chronic obstructive pulmonary disease) (Acute) COPD (chronic obstructive pulmonary disease) (Chronic) Heart disease (Chronic) Severe recurrent major depression without psychotic features (Acute 04/19/11) Acute exacerbation of chronic obstructive airways disease (Acute 02/07/11) Generalized anxiety disorder (Chronic 03/31/11) Medical History Diverticulitis large intestine Transaminitis Perforation of sigmoid colon due to diverticulitis Acute exacerbation of chronic obstructive pulmonary disease Hx of deep venous thrombosis (2018) rightT ARM 2019 (TREATED WITH ELIQUIS)- on AC x 6 months- then d/c'ed- no issues since. Did follow with heme- no known clotting issues - felt secondary to A-port- A port removed. Bipolar affective disorder in remission RBBB (right bundle branch block with left anterior fascicular block) CAD (coronary artery disease) COPD (chronic obstructive pulmonary disease) Pulmonary nodule 1 cm or greater in diameter Restless leg RBBB (right bundle branch block with left anterior fascicular block) Heart disease GERD (gastroesophageal reflux disease) PATTON (dyspnea on exertion) CAD (coronary artery disease) Hx of colonic polyps Dementia per chart, pt. was able to complete PAT interview with ease Osteoporosis Bipolar affective disorder in remission Hx pulmonary embolism (2009) Manic episode (03/2024) reports manic depressive at beginning of march, resolved Insomnia On anticoagulant therapy plavix daily Hx of non-ST elevation myocardial infarction (NSTEMI) (2019) "debateable" History of COVID-19 (2021) diagnosed 02/04/22 via home test only--cough, fatigue, muscle aches, runny nose--no symptoms now Celiac disease On home oxygen therapy 2L prn PVD (peripheral vascular disease) S/p angioplasties. On Plavix- cannot tolerate ASA Anxiety and depression Hearing deficit b/l perez's Aortic valve defect Had AVR secondary to AR per patient "HAS MINIMAL LEAKING FROM PROSTHETIC COW AORTIC VALVE" Lung nodules Following with pulm Sleep apnea cpap with 2L at hs Chronic obstructive pulmonary disease stage 4 COPD, on prednisone maintenance program, currently going thru eval for lung transplant list Asthma Well controlled - inhalers daily and prn--nebulizer prn Surgical History Hx of colonoscopy with polypectomy Status post trigger finger release 05/2023 @ [facility]--right thumb/ring finger History of transesophageal echocardiography (MELISSA) (~08/16/19) History of cardiac cath (~05/15/19) @ [facility] with Dr. Ji, no stents, no TX, History of vascular access device infuasport placed and removed in past for IGG History of umbilical hernia repair History of right inguinal hernia repair History of cholecystectomy History of esophagogastroduodenoscopy (EGD) History of phacoemulsification of cataract of both eyes with intraocular lens implantation History of angioplasty LEs and hand History of aortic valve replacement (2009) 2009 @ [facility] -follows with Dr. Ji in [place] History of bronchoscopy Family History Father Family history of diabetes mellitus Other No family history of adverse response to anesthesia Social History Smoking Status: Former smoker Tobacco Type: Cigarettes Age Started Using Tobacco: 14; Age Quit Using Tobacco: 54; Second Hand Exposure: No; Do You Dip or Chew Tobacco: No; Hx Alcohol Use: No Hx Substance Use: Yes Substance Use Type Other:: gummireillees Preferred Language: Ukrainian Communication Ability: Effective [employer] Set Up Technician Required: No Beliefs That Will Affect Care: None marital status: Current Living Situation: Spouse Current Living Situation Comment: Lives with and son Feels Safe at Home: Yes Gender Identity: Male Assistive Devices: Oxygen - at Night Physical Exam Physical Exam: General: A&Ox3. NAD. Cooperative. HEENT: Atraumatic, normocephalic. Vision/hearing intact Pulm: Diminished, scattered expiratory wheezes present. On nebulizer at time of visit. Symmetrical chest rise. Prolonged expiration. Cardiac: RRR, -mrg. Radial pulses intact and symmetrical. Abdominal: Nontender, nondistended, soft. BS present. Ext; warm, dry, no edema Results & Data Results & Data Vital Signs (Past 12 Hours) Vital Signs Temp Pulse Pulse Resp BP Pulse Ox O2 Del Method 10/16/24 12:00 64 18 154/89 H 99 Room Air 10/16/24 11:31 60 16 147/85 H 98 Room Air 10/16/24 11:31 99 Room Air 10/16/24 11:31 67 10/16/24 11:30 77 23 99 Room Air 10/16/24 11:20 36.4 C L 75 22 157/80 H 96 Room Air PG Care Time/CCT Total # of Minutes Spent Total Time Spent with Patient: Total time spent is greater than 50% in coordination of care (as documented) at patient's floor/unit and/or counseling patient: Coding Level of Care Code 37104 INT INP/OBS CARE 3/75MIN Diagnoses Acute exacerbation of chronic obstructive pulmonary disease J44.1 COPD with emphysema J43.9 Immunoglobulin G deficiency D80.3 Hx of deep venous thrombosis Z86.718 Anxiety F41.9 GERD (gastroesophageal reflux disease) K21.9 BPH (benign prostatic hyperplasia) N40.0
[2024-10-16 13:28] LABS: Immunoglobulin A 169.2 mg/dl (70-400); Immunoglobulin G 1485.5 mg/dl (635-1741); Immunoglobulin M 86.9 mg/dl (45-281)
[2024-10-16] MEDS ORDERED: CLOBETASOL PROPIONATE 0.05% CREAM 15 GM TUBE TOP PRN (15:02)
[2024-10-16] MEDS ORDERED: POLYETHYLENE (MIRALAX) 17 GM PACK PO PRN (15:02)
[2024-10-16] MEDS ORDERED: ALBUTEROL HFA 8 GM INHALER INH PRN (15:02)
[2024-10-16] MEDS ORDERED: ACETAMINOPHEN 325 MG TAB PO PRN (15:02)
[2024-10-16] MEDS: ENOXAPARIN INJ 40 MG/0.4 ML SYR SQ SCH (18:35)
[2024-10-16] MEDS: DICYCLOMINE HCL 20 MG TAB PO SCH (18:35)
[2024-10-16] MEDS: EZETIMIBE 10 MG TAB PO SCH (20:33)
[2024-10-16] MEDS: OLANZapine 10 MG TAB PO SCH (20:33)
[2024-10-16] MEDS: THEOPHYLLINE 400 MG EXTENDED REL TAB PO SCH (20:34)
[2024-10-16] MEDS: carvediloL 6.25 MG TAB PO SCH (20:34)
[2024-10-16] MEDS: CHLORTHALIDONE 25 MG TAB PO SCH (20:34)
[2024-10-16] MEDS: TAMSULOSIN HCL 0.4 MG CAP PO SCH (20:34)
[2024-10-16] MEDS: DIVALPROEX EXTENDED RELEASE 250 MG TABCR PO SCH (20:34)
[2024-10-16] MEDS ORDERED: [UNRECOGNIZED DRUG - OTHER] PO SCH (21:00)
--- NOTE | 2024-10-17 08:02 | Hospitalist Progress Note ---
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 He has end-stage COPD and is pending transplant evaluation at [facility] and case is being reviewed by the transplant [facility] 10/16/2024. He presents with recurrent wheezing and an exacerbation, has no no fever/chills/sweats/productive cough or leukocytosis to suggest underlying pneumonia or acute infection (1) Acute on chronic COPD Gold class E COPD. He is pending a lung transplant evaluation at [facility] PFTs 04/2024: FVC 3.77 L (73%), FEV1 1.15 L (46%), FEV1/FVC 31%. Severe obstructive disease. - Worsening dyspnea, exertion limitation, and wheezing, w/o hypoxia. Multiple recurrent symptoms with attempted steroid weeks over the last several weeks. Does not appear infected Continue Breo(formulary substitution)/Spiriva on admission - Continue theophylline twice daily. Narrow TI has been discussed with him on prior evaluations with his global president - Pending discussion for initiating ensifentrine at next appointment. Pulmonology consulted - In process of working on a lung transplant through [facility]. Case is being presented at transplant board today. Dr. Gallo is the global president there reviewing. Patient is improving and stable on nebulizer at time of assessment. Will continue methylprednisolone 40 mg twice daily, did receive a methylprednisolone 125 fluid in the ER DuoNebs every 4 hours as needed, epidural every 2 hours as needed as needed - Continue MWF Azithromycin 500mg; Continue Roflumilast 2) Concerns for cor pulmonale - Echo ordered, pending 3) CAD, hypertension Continue Plavix, carvedilol 12.5 mg twice daily, atorvastatin 80 mg, chlorthalidone Patient denies history of IN/STEMI/NSTEMI/CHF 4) Concerns for Hypogammaglobulinemia #resolved [facility] IgG/A/M levels all WNL Chronic Stable Issues: - Former tobacco abuse: [id number] history in remission since 2009, noted - Anxiety/MDD: Olanzapine continued - GERD: PPI continued DVT prophylaxis: Heparin Disposition: Med-Surg Obs CODE STATUS: Full code Diet: Heart healthy Admission and Anticipated Discharge Date Admission Date: October 16, 2024 Supervising Physician Co-Signing Physician Notes I personally examined the patient and verified siddiqui points of history and exam, discussed case, and agree with decision making and plan documented by Dr. Garay. Patient is a 64-year-old male with end-stage COPD on transplant list at [facility] for possible lung transplant presenting with worsening shortness of breath. Patient placed on IV methylprednisone with improvement, echocardiogram ordered, appreciate pulmonary recommendations. Subjective Wild Thompson is a 68-year-old male with past medical history of stage IV COPD pending potential transplant at [facility], CAD, diverticulitis with perforation, GERD, celiac who presents with acute on chronic COPD exacerbation. Wild was at pulmonary rehab. They were concerned last but was OK and came back for pulm rehab today. Had his last COPD exacerbation in July and was given IV steroids at the time and nebulizers which helped. 3 weeks ago had another exacerbation [facility], treated with IV steroids and nebulizers. After that dc was put on a prednisone taper, 10 days ago got worse again so restarted a 40mg taper, got to 20 and worsened, was put back at 40mg and improved, went down to 30mg for three days but again worsened and took 40mg on day of admission. [place] better while on nebulizer at time of ER assessment. Using his nebulizer QID at home. Currently on Spiriva and Symbicort, and also on theophylline. Was pending discussion on ensifentrine at next appointment, has not yet started this. In process of working on a lung transplant through [facility]. Case is being presented at transplant board today. Dr. Gallo is the global president there reviewing. Patient seen and evaluated today at bedside. Denied any other issues besides his respiratory issues. Denied any increase in sputum, change in color of sputum. Endorsed increased dyspnea and cough brought him in but patient feeling comfortable on room air, with O2 Sat of 97% on room air. Review of Systems Constitutional: no fever, no chills and no weakness Respiratory: + cough, + dyspnea and + wheezing; no ch lee ann in sputum and no sputum production Cardiovascular: no chest pain, no palpitations, no edema and no calf pain Gastrointestinal: no abdominal pain, no nausea, no vomiting, no constipation and no diarrhea/loose stools Genitourinary: no dysuria or no urinary frequency Neurologic: no tingling, no numbness and no headache(s) Physical Exam Constitutional: WD/WN, vitals as above Respiratory: + labored breathing and + cough Auscu ltation: + rhonchi and + wheezes; no crackles and no rales Cardiovascular: Rate/Rhythm: regular rate and regular rhythm Heart Sounds: + murmur Extremities: normal capillary refill; no calf tenderness and no pedal edema Gastrointestinal (Abdomen): normal bowel sounds, soft, nontender, no hepatosplenomegaly Psychiatric: A+Ox3, euthymic affect Results & Data Results & Data Vital Signs (Past 12 Hours) Vital Signs Temp Pulse Resp BP Pulse Ox O2 Del Method 10/17/24 07:46 36.5 C 74 16 131/81 97 Room Air 10/16/24 20:35 Room Air
[2024-10-17] MEDS: FLUTICASONE/VILANTEROL 200/25MCG 14 PUFFS/INHALER INH SCH (09:01)
[2024-10-17] MEDS: ATORVASTATIN 40 MG TAB PO SCH (09:02)
[2024-10-17] MEDS: PANTOprazole 40 MG TAB PO SCH (09:02)
[2024-10-17] MEDS: FOLIC ACID 1 MG TAB PO SCH (09:02)
[2024-10-17] MEDS: ROFLUMILAST 500 MCG TAB PO SCH (09:02)
[2024-10-17] MEDS: UMECLIDINIUM BROMIDE 62.5MCG/BLISTER 7 PUFFS/INHALER INH SCH (09:02)
[2024-10-17] MEDS: CHOLECALCIFEROL 25 MCG (1000 UNITS) TAB PO SCH (09:02)
[2024-10-17] MEDS: FAMOTIDINE 20 MG TAB PO SCH (09:03)
[2024-10-17] MEDS: AZITHROMYCIN 250 MG TAB PO SCH (09:03)
[2024-10-17] MEDS: FERROUS SULFATE 325 MG TAB PO SCH (09:03)
[2024-10-17] MEDS: CLOPIDOGREL BISULFATE 75 MG TAB PO SCH (09:03)
[2024-10-17] MEDS: methylPREDNISolone 40 MG in SYRINGE 0 ML IV SCH (09:04)
[2024-10-17 09:08] LABS: Basophils # (auto) 0.01 K/uL (0.00-0.20); Basophils % (auto) 0.1 %; Hematocrit (blood only) 40.6 % (42.0-52.0); Hemoglobin 14.6 g/dl (14.0-18.0); Immature Granulocytes # (auto) 0.18 K/uL (0.01-0.20); Immature Granulocytes % (auto) 1.9 %; Lymphocytes # (auto) 0.72 K/uL (1.20-3.40); Lymphocytes % (auto) 7.4 %; Mean Corpuscular Hemoglobin 31.1 pg (25.0-34.0); Mean Corpuscular Volume 86.4 fL (80.0-100.0); Mean Platelet Volume 9.5 fL (9.4-12.4); Monocytes # (auto) 0.37 K/uL (0.11-0.59); Monocytes % (auto) 3.8 %; Neutrophils # (auto) 8.44 K/uL (1.40-6.50); Neutrophils % (auto) 86.8 %; Platelet Count 173 K/uL (130-400); RDW Coefficient of Variation 12.8 % (11.5-14.5); RDW Standard Deviation 39.9 fL (36.4-46.3); White Blood Count 9.72 K/ul (4.8-10.8)
[2024-10-17 09:46] LABS: BUN Creatinine Ratio 30.4 (10-20); Calcium 9.7 mg/dl (8.6-10.3); Creatinine Clr Calc Pharmacy 61.4 ml/min; Potassium 4.3 mmol/L (3.5-5.1)
--- NOTE | 2024-10-17 13:00 | Pulmonary Consultation ---
Date of Consultation October 17, 2024 Assessment & Plan (1) Acute exacerbation of chronic obstructive pulmonary disease: Patient less bronchospastic on exam today compared to notes from the H&P. He is still very dyspneic with exertion. Continue methylprednisone and Camelia/LAMA combination nebulizer therapy. Consider repeating echocardiogram to look for cor pulmonale. Will check a BNP and if elevated give a trial of diuresis. No clear infectious etiology identified. Respiratory viral panel was negative. Patient afebrile and without leukocytosis. Will follow with you. Thank you for the consult. History of Present Illness Reason for Consultation: "End-stage COPD" Attending Physician: Fartun Holt, History of Present Illness 68-year-old male was followed by pulmonary medicine at [facility] and also has primary care medicine through the [place]. He had a PFT in 2020 which revealed an FEV1 of 36% predicted with no significant postbronchodilator response. He subsequently had a PFT April 2024 at [facility] which revealed an FEV1 of 1.15 L which is 46% predicted. He is undergoing lung transplant e valuation at [facility]. He is maintained on azithromycin every Tuesday and Tuesday at a dose of 500 mg. He is also on high-dose Advair and Spiriva. He takes theophylline 400 mg twice daily and is awaiting a prior authorization for Ohtyuvare. He relates that over the last few weeks he has been very dyspneic with walking 5 to 10 feet. He was undergoing pulmonary rehab yesterday and it was noted that he was hypoxic and very dyspneic. They recommended he go to the ER and he was ultimately admitted. He is currently on methylprednisone 40 mg twice daily, his regular dose of azithromycin, Breo 200/25 daily, Daliresp 500 mcg daily, theophylline 400 mg p.o. twice daily and Incruse Ellipta daily his chest x-ray completed yesterday revealed no acute process. He does have a median sternotomy wires and a history of a prosthetic aortic valve replacement. No significant leukocytosis seen. Carbon dioxide level on [facility] 10/17/[address] in October 2023 revealed diffuse centrilobular emphysema predominantly in the upper lobes. Allergies Allergy/AdvReac Type Severity Reaction Status Date / Time gluten Allergy Severe celiac Verified 09/18/24 09:31 disease wheat Allergy Severe celiac Verified 09/18/24 09:31 disease NSAIDS (Non-Steroidal Allergy Intermediate Hives Verified 09/18/24 09:31 Anti-Inflamma aspirin Allergy Mild RASH,HIVES Verified 09/18/24 09:31 lisinopril Allergy Mild Hives Verified 09/18/24 09:31 naproxen [From Naprosyn] Allergy Mild Hives Verified 09/18/24 09:31 Home Medications Medication Instructions Recorded Confirmed Type atorvastatin 80 mg tablet 80 mg PO QAM 01/16/19 10/16/24 History theophylline 400 mg 400 mg PO BID 01/16/19 10/16/24 History tablet,extended release 24 hr ferrous sulfate 325 mg (65 mg 325 mg PO Q OTHER DAY 12/11/20 10/16/24 History iron) tablet clopidogrel 75 mg tablet (Plavix) 75 mg PO QAM 04/08/22 10/16/24 History clobetasol 0.05 % topical cream 1 applic topical DAILY PRN Rash 11/14/23 10/16/24 History ezetimibe 10 mg tablet (Zetia) 10 mg PO HS 11/14/23 10/16/24 History folic acid 1 mg tablet 1 mg PO DAILY 11/14/23 10/16/24 History rivastigmine 4.6 mg/24 hour 1 patch transdermal DAILY 11/14/23 10/16/24 History transdermal patch ketotifen fumarate 0.025 % (0.035 1 drp ophthalmic (eye) BID PRN Eye 12/13/23 10/16/24 History %) eye drops Irritation chlorthalidone 25 mg tablet 25 mg PO QPM 01/03/24 10/16/24 History calcium 315 mg-vitamin D3 250 1 tab PO BID 02/28/24 10/16/24 History unit-phytosterols 200 mg tablet cholecalciferol (vitamin D3) 25 50 mcg PO QAM 02/28/24 10/16/24 History mcg (1,000 unit) tablet famotidine 20 mg tablet 20 mg PO QAM 02/28/24 10/16/24 History pantoprazole 40 mg tablet,delayed 40 mg PO QAM 02/28/24 10/16/24 History release teriparatide 20 mcg/dose (620 20 mcg subcut QAM 02/28/24 10/16/24 History mcg/2.48 mL) subcutaneous pen injector food supplemt, lactose-reduced 1 ea PO QAM 04/06/24 10/16/24 History (Ensure oral liquid) ketoconazole 2 % shampoo 1 applic topical Q OTHER DAY 04/06/24 10/16/24 History tamsulosin 0.4 mg capsule 0.4 mg PO HS 04/06/24 10/16/24 History carvedilol 6.25 mg tablet 6.25 mg PO BID #60 tabs 04/08/24 10/16/24 Rx divalproex 250 mg tablet,extended 250 mg PO BID #60 tabs 04/08/24 10/16/24 Rx release 24 hr olanzapine 10 mg tablet 10 mg PO HS #30 tabs 04/08/24 10/16/24 Rx albuterol sulfate 90 mcg/actuation 2 puff inhalation Q6H PRN 07/13/24 10/16/24 Rx aerosol inhaler Shortness Of Breath #8.5 grams ensifentrine 3 mg/2.5 mL 3 mg (2.5 mL) inhalation BID #150 07/13/24 10/16/24 Rx suspension for nebulization mL fluticasone 500 mcg-salmeterol 50 1 inh inhalation BID #60 ea 07/13/24 10/16/24 Rx mcg/dose blistr powdr for inhalation tiotropium bromide 18 mcg capsule 1 cap inhalation QAM 30 days #30 07/13/24 10/16/24 Rx with inhalation device (Spiriva caps with HandiHaler) dicyclomine 20 mg tablet 20 mg PO QID #20 tabs 07/18/24 10/16/24 Rx Discontinue DME #1 ea 10/05/24 Rx roflumilast 500 mcg tablet 500 mcg PO DAILY #30 tabs 10/10/24 10/16/24 Rx azithromycin 500 mg tablet 500 mg PO .COMPLEX #36 tabs 10/11/24 10/16/24 Rx Patient History Medical History Diverticulitis large intestine Transaminitis Perforation of sigmoid colon due to diverticulitis Acute exacerbation of chronic obstructive pulmonary disease Hx of deep venous thrombosis (2019) rightT ARM 2019 (TREATED WITH ELIQUIS)- on AC x 6 months- then d/c'ed- no issues since. Did follow with heme- no known clotting issues - felt secondary to A-port- A port removed. Bipolar affective disorder in remission RBBB (right bundle branch block with left anterior fascicular block) CAD (coronary artery disease) COPD (chronic obstructive pulmonary disease) Pulmonary nodule 1 cm or greater in diameter Restless leg RBBB (right bundle branch block with left anterior fascicular block) Heart disease GERD (gastroesophageal reflux disease) PATTON (dyspnea on exertion) CAD (coronary artery disease) Hx of colonic polyps Dementia per chart, pt. was able to complete PAT interview with ease Osteoporosis Bipolar affective disorder in remission Hx pulmonary embolism (2009) Manic episode (03/2024) reports manic depressive at beginning of march, resolved Insomnia On anticoagulant therapy plavix daily Hx of non-ST elevation myocardial infarction (NSTEMI) (2019) "debateable" History of COVID-19 (2021) diagnosed 02/04/22 via home test only--cough, fatigue, muscle aches, runny nose--no symptoms now Celiac disease On home oxygen therapy 2L prn PVD (peripheral vascular disease) S/p angioplasties. On Plavix- cannot tolerate ASA Anxiety and depression Hearing deficit b/l perez's Aortic valve defect Had AVR secondary to AR per patient "HAS MINIMAL LEAKING FROM PROSTHETIC COW AORTIC VALVE" Lung nodules Following with pulm Sleep apnea cpap with 2L at hs Chronic obstructive pulmonary disease stage 4 COPD, on prednisone maintenance program, currently going thru eval for lung transplant list Asthma Well controlled - inhalers daily and prn--nebulizer prn Surgical History Hx of colonoscopy with polypectomy Status post trigger finger release 05/2023 @ [facility]--right thumb/ring finger History of transesophageal echocardiography (MELISSA) (~08/16/19) History of cardiac cath (~05/15/19) @ [facility] [place] with Dr. Ji, no stents, no [place], History of vascular access device infuasport placed and removed in past for IGG History of umbilical hernia repair History of right inguinal hernia repair History of cholecystectomy History of esophagogastroduodenoscopy (EGD) History of phacoemulsification of cataract of both eyes with intraocular lens implantation History of angioplasty LEs and hand History of aortic valve replacement (2009) 2009 @ [facility] -follows with Dr. Ji in [place] History of bronchoscopy Family History Father Family history of diabetes mellitus Other No family history of adverse response to anesthesia Social History Smoking Status: Former smoker Tobacco Type: Cigarettes Age Started Using Tobacco: 14; Age Quit Using Tobacco: 54; Second Hand Exposure: No; Do You Dip or Chew Tobacco: No; Hx Alcohol Use: No Hx Substance Use: No Preferred Language: Andorran Communication Ability: Effective Freight Caller Required: No Beliefs That Will Affect Care: Denominational Denominational Beliefs: faith marital status: Current Living Situation: Spouse Current Living Situation Comment: Lives with and son Feels Safe at Home: Yes Gender Identity: Male Assistive Devices: Cane and Oxygen - at Night Review of Systems Review of Systems: All systems reviewed & are unremarkable except as noted in HPI & below Physical Exam Physical Exam: Constitutional: Patient appears to be of their stated age. Patient is in no apparent distress. Patient is well-developed. Eyes: Pupils are equal round and reactive to light. Conjunctivae are normal. Anicteric sclera. Ears nose, mouth and throat: Mallampati class 2. Normal posterior oropharynx. Uvula is midline. Neck: Trachea is midline. Visual inspection is normal. Respiratory: Prolonged phase of exhalation. No wheezes. No tachypnea. Cardiovascular: Regular rate and rhythm. No murmurs. No edema. Gastrointestinal: Deferred. Musculoskeletal: No cyanosis. Patient is able to move all extremities. Strength is 5 out of 5 in the upper and lower extremities. Skin: No rashes, warm dry and intact. Neurologic: No obvious focal neurological deficits seen. Psychiatric: Alert and oriented x3 with a euthymic affect. Results & Data Results & Data Vital Signs (Past 12 Hours) Vital Signs Temp Pulse Resp BP Pulse Ox O2 Del Method 10/17/24 08:06 Room Air 10/17/24 07:46 36.5 C 74 16 131/81 97 Room Air PG Care Time/CCT Total # of Minutes Spent Total Time Spent with Patient: Total time spent is greater than 50% in coordination of care (as documented) at patient's floor/unit and/or counseling patient: Coding Level of Care Code 31671 INT INP/OBS CARE MIN Diagnoses Acute exacerbation of chronic obstructive pulmonary disease J44.1
[2024-10-17] MEDS: ALBUT/IPRATROP 3MG/0.5MG NEB 3 ML VIAL NEB PRN (15:36)
--- NOTE | 2024-10-17 16:25 | XCELERA ---
[id number]
--- NOTE | 2024-10-18 07:00 | Hospitalist Progress Note ---
Date of Service October 18, 2024 Assessment & Plan (1) Acute exacerbation of chronic obstructive pulmonary disease: (2) COPD with emphysema: (3) Immunoglobulin G deficiency: Plan Wild Thompson is a 68-year-old male with past medical history of stage IV COPD pending potential transplant at [facility], CAD, diverticulitis with perforation, GERD, celiac who presents with acute on chronic COPD exacerbation. He has end- stage COPD and is pending transplant evaluation at [facility] and case is being reviewed by the transplant [facility] 10/16/2024. He presents with recurrent wheezing and an exacerbation, has no no fever/chills/sweats/productive cough or leukocytosis to suggest underlying pneumonia or acute infection Acute on chronic COPD exac Gold class E COPD. He is pending a lung transplant evaluation at [facility] pulm Dr. Gallo PFTs 04/2024: FVC 3.77 L (73%), FEV1 1.15 L (46%), FEV1/FVC 31%. Severe obstructive disease. - Continue MWF Azithromycin 500mg; Continue Roflumilast - echo done; EF 60-65% with grade 1 diastolic dysfunction - continue inhalers/neb, continue MWF azithromycin, continue theophylline twice daily. - continue IV steroids 40 mg BID today with plan to transition to oral tomorrow - pulm consult; continue current regime CAD, hypertension Continue Plavix, carvedilol 12.5 mg twice daily, atorvastatin 80 mg, chlorthalidone Patient denies history of CA/STEMI/NSTEMI/CHF Concerns for Hypogammaglobulinemia #resolved Receives IVIG infusions via [facility] IgG/A/M levels all WNL Chronic Stable Issues: - Former tobacco abuse: [id number] history in remission since 2009, noted - Anxiety/MDD: Olanzapine continued - GERD: PPI continued DVT prophylaxis: Heparin Admission and Anticipated Discharge Date Admission Date: October 16, 2024 Supervising Physician Co-Signing Physician Notes I personally examined the patient and verified siddiqui points of history and exam, discussed case, and agree with decision making and plan documented by Dr. Spence. Patient is a 64-year-old male with end-stage COPD on transplant list at [facility] for possible lung transplant presenting with worsening shortness of breath. Patient placed on IV methylprednisone with improvement, echocardiogram obtained, appreciate pulmonary recommendations. Discharge likely tomorrow with continued clinical improvement. Subjective Today, pt states he is feeling okay. He states he feels relatively unchanged from yesterday. He states that his breathing still feels relatively tight, moreso than prior to coming into the hospital but perhaps somewhat improved from yesterday. He states he uses 2L O2 at home overnight and intermittently throughout the day. He states recently he has had multiple COPD exacerbations and he feels okay when on 40 mg prednisone but when he steps down to 30 or 20 mg dosing he seems to have another exacerbation. He does understand his condition is end stage and progressive but would like to pursue lung transplant. He also notes his lungs still feel tight and thus he would like to stay on IV steroids today, as the inhalers/neb do not seem to be helping as much as they had in the past. Otherwise no chest pain, no nausea/vomiting, feeling okay just not quite at baseline for him. Review of Systems Review of Systems: As per above Physical Exam Physical Exam: General:Alert and oriented, no acute distress, HEENT: Normocephalic, moist oral mucosa, Cardio: Regular rate and rhythm, soft murmur noted Resp:Globally poor air movement noted, some mild end expiratory wheezing noted GI: Soft and nontender, bowel sounds active Skin: Warm, pink, dry, Results & Data Results & Data Vital Signs (Past 12 Hours) Vital Signs Temp Pulse Resp BP Pulse Ox O2 Del Method O2 Flow Rate 10/17/24 20:10 Nasal Cannula 2 10/17/24 19:14 36.6 C 81 18 119/74 96 Nasal Cannula 2 Resident Activity Tracking Resident Involvement: Resident Care Provided Care Provided: Adult Hospital Medicine
[2024-10-18 10:08] LABS: Basophils # (auto) 0.02 K/uL (0.00-0.20); Basophils % (auto) 0.2 %; Hematocrit (blood only) 39.3 % (42.0-52.0); Hemoglobin 13.7 g/dl (14.0-18.0); Immature Granulocytes # (auto) 0.33 K/uL (0.01-0.20); Immature Granulocytes % (auto) 3.1 %; Lymphocytes # (auto) 0.67 K/uL (1.20-3.40); Lymphocytes % (auto) 6.2 %; Mean Corpuscular Hemoglobin 30.3 pg (25.0-34.0); Mean Corpuscular Hgb Conc 34.9 g/dL (32.0-36.0); Mean Corpuscular Volume 86.9 fL (80.0-100.0); Mean Platelet Volume 9.6 fL (9.4-12.4); Monocytes # (auto) 0.27 K/uL (0.11-0.59); Monocytes % (auto) 2.5 %; Neutrophils # (auto) 9.44 K/uL (1.40-6.50); Platelet Count 174 K/uL (130-400); RDW Coefficient of Variation 12.9 % (11.5-14.5); RDW Standard Deviation 40.7 fL (36.4-46.3); Red Blood Count 4.52 M/uL (4.70-6.10); White Blood Count 10.73 K/ul (4.8-10.8)
[2024-10-18 10:20] LABS: BUN Creatinine Ratio 28.4 (10-20); Calcium 9.5 mg/dl (8.6-10.3); Creatinine Clr Calc Pharmacy 59.3 ml/min; Potassium 3.9 mmol/L (3.5-5.1)
--- NOTE | 2024-10-19 08:04 | Hospitalist Progress Note ---
Date of Service October 19, 2024 Assessment & Plan (1) Acute exacerbation of chronic obstructive pulmonary disease: (2) COPD with emphysema: (3) Immunoglobulin G deficiency: Plan Wild Thompson is a 68-year-old male with past medical history of stage IV COPD pending potential transplant at [facility], CAD, diverticulitis with perforation, GERD, celiac who presents with acute on chronic COPD exacerbation. He has end- stage COPD and is pending transplant evaluation at [facility] and case is being reviewed by the transplant [facility] 10/16/2024. He presents with recurrent wheezing and an exacerbation, has no no fever/chills/sweats/productive cough or leukocytosis to suggest underlying pneumonia or acute infection Acute on chronic COPD exac Gold class E COPD. He is pending a lung transplant evaluation at [facility] pulm Dr. Gallo PFTs 04/2024: FVC 3.77 L (73%), FEV1 1.15 L (46%), FEV1/FVC 31%. Severe obstructive disease. - Continue MWF Azithromycin 500mg; Continue Roflumilast - echo done; EF 60-65% with grade 1 diastolic dysfunction - continue inhalers/neb, continue MWF azithromycin, continue theophylline twice daily. - continue IV steroids 40 mg BID today with plan to transition to oral tomorrow - pulm consult; continue current regime CAD, hypertension Continue Plavix, carvedilol 12.5 mg twice daily, atorvastatin 80 mg, chlorthalidone Patient denies history of [place]/STEMI/NSTEMI/CHF Concerns for Hypogammaglobulinemia #resolved Receives IVIG infusions via [facility] IgG/A/M levels all WNL Chronic Stable Issues: - Former tobacco abuse: [id number] history in remission since 2009, noted - Anxiety/MDD: Olanzapine continued - GERD: PPI continued DVT prophylaxis: Heparin Admission and Anticipated Discharge Date Admission Date: October 16, 2024 Supervising Physician Co-Signing Physician Notes ATTESTATION I also saw the patient and confirmed siddiqui portions of the history and exam. I agree with the impression and plan in the resident documentation, and as summarized below. Patient is feeling better, nearing his baseline. He would like to go home. Lungs with good air movement, exp wheezing thru out, which I suspect is his baseline. Will start Prednisone 60 mg tomorrow and have him reduce to 40mg after three days. He will then continue 40 mg for three days, and return to 30 mg (unless directed otherwise at follow up). All questions answered; patient is comfortable with discharge plan. I spent 25 mins seeing the patient and reviewing documentation and documenting. Review of Systems Review of Systems: As per above Results & Data Results & Data Vital Signs (Past 12 Hours) Vital Signs O2 Del Method 10/19/24 07:33 Room Air Resident Activity Tracking Resident Involvement: Resident Care Provided Care Provided: Adult Hospital Medicine
[2024-10-19 08:16] VITALS: BP 119/82; RESP 18; TEMP 97.7; O2SAT 94
[2024-10-19 09:59] LABS: Basophils # (auto) 0.01 K/uL (0.00-0.20); Basophils % (auto) 0.1 %; Hematocrit (blood only) 38.2 % (42.0-52.0); Hemoglobin 13.8 g/dl (14.0-18.0); Immature Granulocytes # (auto) 0.13 K/uL (0.01-0.20); Immature Granulocytes % (auto) 1.2 %; Lymphocytes # (auto) 0.68 K/uL (1.20-3.40); Lymphocytes % (auto) 6.1 %; Mean Corpuscular Hemoglobin 31.2 pg (25.0-34.0); Mean Corpuscular Hgb Conc 36.1 g/dL (32.0-36.0); Mean Corpuscular Volume 86.4 fL (80.0-100.0); Mean Platelet Volume 9.7 fL (9.4-12.4); Monocytes # (auto) 0.33 K/uL (0.11-0.59); Neutrophils # (auto) 10.01 K/uL (1.40-6.50); Neutrophils % (auto) 89.6 %; Platelet Count 192 K/uL (130-400); RDW Standard Deviation 40.6 fL (36.4-46.3); Red Blood Count 4.42 M/uL (4.70-6.10); White Blood Count 11.16 K/ul (4.8-10.8)
[2024-10-19 10:13] LABS: BUN Creatinine Ratio 27.6 (10-20); Calcium 9.1 mg/dl (8.6-10.3); Creatinine Clr Calc Pharmacy 59.3 ml/min; Potassium 3.8 mmol/L (3.5-5.1)
--- NOTE | 2024-10-19 11:10 | Discharge Summary ---
Date of Service October 19, 2024 Admission HPI Per Admitting Provider Wild Thompson is a 68-year-old male with past medical history of stage IV COPD pending potential transplant at [facility], CAD, diverticulitis with perforation, GERD, celiac who presents with acute on chronic COPD exacerbation. EKG: Sinus bradycardia, right bundle branch block, left anterior fascicular block Wild was at pulmonary rehab. They were concerned last but was OK and came back for pulm rehab today. Had his last COPD exacerbation in July and was given IV steroids at the time and nebulizers which helped. 3 weeks ago had another exacerbation while getting his IVIG infusion at [facility] and was admitted for 2 days, treated with IV steroids and nebulizers. After that dc was put on a prednisone taper, 10 days ago got worse again so restarted a 40mg taper, got to 20 and worsened, was put back at 40mg and improved, went down to 30mg for three days but again worsened and took 40mg today. No fevers, chills or sweats. Minimal clear sputum 'almost nothing' when he does cough No night sweats No chest pain or chest pressure Wheezing which correlates with his shortness of breath No nausea, vomiting, or diarrhea Feels better while on nebulizer at time of ER assessment Using his nebulizer QID at home Currently on Spiriva and Symbicort Also on THeophylline Was pending discussion on ensifentrine at next appointment, has not yet started this In process of working on a lung transplant through [facility]. Case is being presented at transplant board today. Dr. Gallo is the sanitizer there reviewing. Medical History: Reviewed Medications: Reviewed Surgical History: Reviewed Family history: Reviewed Allergies: Reviewed. NSAIDS, ASA, wheat/gluten Social History: No current tobacco use, rare social etoh use. Code Status: Fuxll Code Admission Exam Per Admitting Provider General: A&Ox3. NAD. Cooperative. HEENT: Atraumatic, normocephalic. Vision/hearing intact Pulm: Diminished, scattered expiratory wheezes present. On nebulizer at time of visit. Symmetrical chest rise. Prolonged expiration. Cardiac: RRR, -mrg. Radial pulses intact and symmetrical. Abdominal: Nontender, nondistended, soft. BS present. Ext; warm, dry, no edema Principal Diagnosis acute on chronic COPD exacerbation Discharge Data Allergies Allergy/AdvReac Type Severity Reaction Status Date / Time gluten Allergy Severe celiac Verified 09/18/24 09:31 disease wheat Allergy Severe celiac Verified 09/18/24 09:31 disease NSAIDS (Non-Steroidal Allergy Intermediate Hives Verified 09/18/24 09:31 Anti-Inflamma aspirin Allergy Mild RASH,HIVES Verified 09/18/24 09:31 lisinopril Allergy Mild Hives Verified 09/18/24 09:31 naproxen [From Naprosyn] Allergy Mild Hives Verified 09/18/24 09:31 Consultations 10/16/24 12:53 ED Decision to Admit Stat 10/17/24 09:00 Consult Pulmonology Routine Ordered Studies Chest X-Ray 10/16/24 11:31 XR chest 1V portable CLINICAL HISTORY: Dyspnea COMPARISON STUDY: Chest CT November 14, 2023. Chest radiograph June 20, 2024. FINDINGS: Right shoulder arthroplasty, prosthetic aortic valve and median s ternotomy wires are incidentally noted. There is no pneumothorax or pleural effusion. Cardiomediastinal silhouette is stable. There is no consolidation or evidence for pulmonary edema. There is underlying emphysema. IMPRESSION: No acute cardiopulmonary findings. No significant change in appearance of the chest. ACT 112: Negative or not required by law. Electronically signed by: Ghulam Franco M.D. 10/16/2024 12:01 PM Hospital Course (1) Acute exacerbation of chronic obstructive pulmonary disease: (2) COPD with emphysema: (3) Immunoglobulin G deficiency: Plan Wild Thompson is a 68-year-old male with past medical history of stage IV COPD pending potential transplant at [facility], CAD, diverticulitis with perforation, GERD, celiac who presents with acute on chronic COPD exacerbation. He has end- stage COPD and is pending transplant evaluation at [facility] and case is being reviewed by the transplant [facility] 10/16/2024. He presents with recurrent wheezing and an exacerbation, has no no fever/chills/sweats/productive cough or leukocytosis to suggest underlying pneumonia or acute infection Acute on chronic COPD exac Gold class E COPD. He is pending a lung transplant evaluation at [facility] pulm Dr. Gallo PFTs 04/2024: FVC 3.77 L (73%), FEV1 1.15 L (46%), FEV1/FVC 31%. Severe obstructive disease. - Continue MWF Azithromycin 500mg; Continue Roflumilast - echo done; EF 60-65% with grade 1 diastolic dysfunction - continue inhalers/neb, continue MWF azithromycin, continue theophylline twice daily. 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, noted - Anxiety/MDD: Olanzapine continued - GERD: PPI continued Total Time Total Time Spent Total Time Spent (In Minutes): .25 mins Discharge Plan Discharge Items Patient Disposition: Home - Self-Care Reason For Visit: ACUTE ON CHRONIC COPD Discharge Diagnosis: Acute on chronic COPd Activity: Per Instructions section Non-emergency contact: Primary Care Provider and Edi Architect Call non-emergency contact if: you have any medication questions Follow-up/Referrals: Fanny Clark PA-C [Primary Care Provider] - (Please schedule hospital discharge follow up within one week) Diet: Gluten Free and Heart Healthy Addtl Attending Provider Instructions: You were admitted to the hospital for COPD exacerbation. You were treated with additional IV steroids which helped improve your breathing. A discharge summary will be sent to your primary care physician to ensure continuity of care. Follow-up appointments: Make a follow-up appointment with your PCP within the next week. It is very important that you follow up with them shortly after discharge from the hospital. Please ensure you have close follow up with your sanitizer to discuss the mcfp taper of your steroid course Medications: Your medication list has been reviewed and reconciled upon discharge to ensure accuracy and continuity of care. An updated list of all your medications is included with your hospital discharge paperwork. Please review this list closely, and make note of any changes. We sent a new medication called prednisone to your pharmacy. Take prednisone 60mg (six 10mg tablets) daily for 3 days, then decrease to prednisone 40mg (four 10mg tablets) for 4 days. You should then follow up with pulmonology and/or PCP to plan the remainder of your steroid taper to hopefully achieve the goal of a 10mg maintenance dose. CALL 911 OR GO TO THE EMERGENCY DEPARTMENT if you experience any of the following: Sudden, severe abdominal pain or nausea/vomiting Severe chest pain, or chest pain that radiates (moves) to your jaw or arm Sudden, severe shortness of breath or difficulty breathing Thank you for allowing us to participate in your care. Pending Studies at Discharge: No Stand-Alone Forms: [email or web address], Smoking Cessation Medications and DC Order Prescriptions: New prednisone 10 mg tablet See Rx Instructions .ROUTE .COMPLEX Qty: 34 0RF Taper: Taper, Blank 60.0 mg DAILY for 3 Days 40.00 mg DAILY for 4 Days Rx Instructions: Take 6 tablets (60mg total) daily for 3 days, then decrease to 4 tablets (40mg total) daily for 4 days Continued ketotifen fumarate 0.025 % (0.035 %) drops 1 drp ophthalmic (eye) BID PRN (Reason: Eye Irritation) Rx Instructions: administer at least 8 hours apart roflumilast 500 mcg tablet 500 mcg PO DAILY Qty: 30 2RF azithromycin 500 mg tablet 500 mg PO .COMPLEX Qty: 36 2RF Rx Instructions: 500 mg orally [place]um-Npqnntley-Mzixuk; albuterol sulfate 90 mcg/actuation HFA aerosol inhaler 2 puff INHALATION Q6H PRN (Reason: Shortness Of Breath) Qty: 8.5 3RF ensifentrine 3 mg/2.5 mL suspension for nebulization 3 mg inhalation BID Qty: 150 12RF fluticasone propion-salmeterol 500-50 mcg/dose blister with device 1 inh INHALATION BID Qty: 60 4RF tiotropium bromide [Spiriva with HandiHaler] 18 mcg capsule, w/inhalation device 1 cap INHALATION QAM 30 Days Qty: 30 4RF teriparatide 20 mcg/dose (620mcg/2.48mL) pen injector 20 mcg subcut QAM calcium carb,[id number] 315-250-200 mg-unit-mg tablet 1 tab PO BID cholecalciferol (vitamin D3) 25 mcg (1,000 unit) tablet 50 mcg PO QAM famotidine 20 mg tablet 20 mg PO QAM pantoprazole 40 mg tablet,delayed release (DR/EC) 40 mg PO QAM theophylline 400 mg Tablet Extended Release 24 Hr 400 mg PO BID atorvastatin 80 mg Tablet 80 mg PO QAM ferrous sulfate 325 mg (65 mg iron) tablet 325 mg PO Q OTHER DAY clopidogrel [Plavix] 75 mg Tablet 75 mg PO QAM Hold Instructions: HOLDING for IR intervention of diverticular abscess chlorthalidone 25 mg Tablet 25 mg PO QPM Hold Instructions: Resume on 04/15/24. Hold until seen by primary care provider since your blood pressure has been running low while hospitalized ketoconazole 2 % Shampoo 1 applic TOPICAL Q OTHER DAY tamsulosin 0.4 mg Capsule 0.4 mg PO HS Ensure Liquid 1 ea PO QAM carvedilol 6.25 mg Tablet 6.25 mg PO BID Qty: 60 0RF olanzapine 10 mg Tablet 10 mg PO HS Qty: 30 0RF divalproex 250 mg Tablet Extended Release 24 Hr 250 mg PO BID Qty: 60 0RF dicyclomine 20 mg tablet 20 mg PO QID Qty: 20 0RF clobetasol 0.05 % Cream 1 applic TOPICAL DAILY PRN (Reason: Rash) folic acid 1 mg Tablet 1 mg PO DAILY ezetimibe [Zetia] 10 mg Tablet 10 mg PO HS rivastigmine 4.6 mg/24 hour Patch 24 Hour 1 patch TRANSDERMAL DAILY No Action (DME) Discontinue DME Misc See Rx Instructions .MEDSUPPLY Qty: 1 0RF Rx Instructions: Discontinue oxygen Discharge Orders: Discharge Order (Routine); Ordered 10/19/24 Ordered By: Santa Finn/Other Patient Handouts: Prednisone Oral Tablet, Discharge Instructions: COPD Admission Data Admit Date/Time: 10/16/24 13:30 Attending Provider: Steffen Chavez Admit Provider: Goldy Shabazz Primary Care Provider: Fanny Clark Other Providers: Goldy Shabazz; Pito Dodson; [facility] Other Interventions: Discharge Summary Assessment (RN) Last Done: 10/19/24 11:16 Supervising Physician Co-Signing Physician Notes ATTESTATION I also saw the patient and confirmed siddiqui portions of the history and exam. I agree with the impression and plan in the resident documentation, and as summarized below. Patient is feeling better, nearing his baseline. He would like to go home. Lungs with good air movement, exp wheezing thru out, which I suspect is his baseline. Will start Prednisone 60 mg tomorrow and have him reduce to 40mg after three days. He will then continue 40 mg for three days, and return to 30 mg (unless directed otherwise at follow up). All questions answered; patient is comfortable with discharge plan. I spent 25 mins seeing the patient and reviewing documentation and documenting. Resident Activity Tracking Resident Involvement: Resident Care Provided Care Provided: Adult Hospital Medicine
[2024-10-19 11:17] VITALS: PULSE 52
== END 2024-10-19 12:03 | disposition home or self-care (01) ==
LOC: SUATTDRO → ED 11:18 → EDINP 11:18 → SUATTDRO 13:30 → 3N 15:03

== ENCOUNTER 2024-10-23 11:58 | Inpatient (IN) ==
--- NOTE | 2024-10-23 12:49 | XRay Report ---
XR chest 1V portable CLINICAL HISTORY: Chest pain, nonspecific COMPARISON STUDY: 10/16/2024 FINDINGS: Stable cardiac valve repair. Heart size and pulmonary vasculature are normal. Stable emphys jena. No effusion, consolidation, or pneumothorax. IMPRESSION: No acute findings. ACT 112: Negative or not required by law. Electronically signed by: Wild Olson M.D. 10/23/2024 12:47 PM
[2024-10-23 13:57] LABS: Hematocrit (blood only) 37.1 % (42.0-52.0); Hemoglobin 13.1 g/dl (14.0-18.0); Mean Corpuscular Hgb Conc 35.3 g/dL (32.0-36.0); Mean Corpuscular Volume 87.9 fL (80.0-100.0); Mean Platelet Volume 9.7 fL (9.4-12.4); Platelet Count 188 K/uL (130-400); RDW Coefficient of Variation 13.4 % (11.5-14.5); RDW Standard Deviation 43.2 fL (36.4-46.3); Red Blood Count 4.22 M/uL (4.70-6.10); White Blood Count 10.54 K/ul (4.8-10.8)
[2024-10-23 14:19] LABS: Albumin Globulin Ratio 1.1 (0.9-2); Albumin Level 3.4 gm/dl (3.4-5.0); BUN Creatinine Ratio 35.9 (10-20); Bilirubin,Total 0.6 mg/dl (0.2-1.0); Calcium 8.3 mg/dl (8.6-10.3); Creatinine Clr Calc Pharmacy 75.6 ml/min; Globulin 3.2 gm/dl (2.5-4.0); Potassium 4.3 mmol/L (3.5-5.1); Total Protein 6.6 gm/dl (6.0-8.3)
[2024-10-23 14:21] LABS: Basophils # (auto) 0.02 K/uL (0.00-0.20); Basophils % (auto) 0.2 %; Immature Granulocytes # (auto) 0.16 K/uL (0.01-0.20); Immature Granulocytes % (auto) 1.5 %; Lymphocytes # (auto) 0.55 K/uL (1.20-3.40); Lymphocytes % (auto) 5.2 %; Monocytes # (auto) 0.32 K/uL (0.11-0.59); Neutrophils # (auto) 9.49 K/uL (1.40-6.50); Neutrophils % (auto) 90.1 %; RBC Morphology Unremarkable
[2024-10-23 14:25] LABS: Troponin I High Sensitivity 26.5 pg/ml (0-20)
--- NOTE | 2024-10-23 15:33 | Emergency Department Note ---
Impression & Plan SOB (shortness of breath), COPD exacerbation, PATTON (dyspnea on exertion), Failure of outpatient treatment ED Provider Note NAME: BRENDA ALLEN AGE: 68 SEX: M : 1955 ARRIVES VIA: Walk-In INFORMANT: [Patient] ED PROVIDER(S): [Rc Rowland MD] CHIEF COMPLAINT: Short of breath HISTORY OF PRESENT ILLNESS: The patient is a 68-year-old male who presents to the ER with shortness of breath that really seemed to worsen today. He does have COPD. He was discharged from our hospital 4 days ago for a flare of COPD. He is currently on his second day of 30 mg of prednisone as a taper. He is not on antibiotics. There has been no fever, no chest pain. He just feels winded with exertion or if he tries to sleep or lay down. He feels his chest is tight and his lungs are closing. The patient does have a nebulizer machine at home. He took a double nebulizer this morning without significant relief. PMHx/PSHx/Social Hx: See Below PHYSICAL EXAM: GENERAL: Patient is in no acute distress. HEENT: No acute trauma, normocephalic atraumatic, mucous membranes moist, no nasal congestion. NECK: No stridor, no adenopathy, no meningismus, trachea is midline. LUNGS: Diminished breath sounds bilaterally with scattered wheezing. No obvious respiratory distress. HEART: Without murmurs gallops or rubs, regular rate and rhythm. ABDOMEN: Soft, nontender, no peritonitis. EXTREMITIES: No cyanosis, full range of motion of all the joints without pain or difficulty. NEUROLOGIC: Oriented x 3, no acute motor or sensory deficits, no focal weakness. SKIN: No jaundice, no diaphoresis. DIFFERENTIAL DIAGNOSIS: Bronchitis or pneumonia, PE, exacerbation of COPD, anemia, cardiac ischemia, among others. EMERGENCY DEPARTMENT PROCEDURES: MEDICAL DECISION MAKING: There is no leukocytosis or worrisome anemia. There is a normal platelet count. No renal failure or significant electrolyte abnormality. No concerning liver enzyme elevation. Cardiac troponin is slightly elevated but stable. No evidence for acute cardiac injury by troponin testing. The troponin elevation is likely elevated from his dyspnea. There was no evidence for pancreatitis. Respiratory bio fire was negative. Chest x-ray did not show pneumonia or CHF. Chest CT did not show evidence for PE or pneumonia. The patient was wheezing on exam. He complained of dyspnea on exertion, he had just been in the hospital for a similar presentation. The patient was given a 1 hour DuoNeb. He was given IV ceftriaxone as antibiotic coverage. He was given IV Solu-Medrol. After the 1 hour neb, the patient was still feeling short of breath, he was very uncomfortable with discharge home. He felt that he had worsened since his recent discharge and was concerned that he will be back in the ER in a very short timeframe. I did speak with case management, the on-call hospitalist was consulted. In short, patient appears to be suffering from a flare of COPD. Prior/Outside records/notes reviewed: Discharge summary note from 10/19/2024 describing his presentation, hospital care and plan at discharge. ECG per my interpretation: Indication was shortness of breath. The ECG shows a normal sinus rhythm with a rate of 61. There is a right bundle branch block. There is no obvious ST elevation, no PVCs. The QTc is 430. Continuous Cardiac Monitoring per my interpretation: An order was placed for continuous cardiac monitoring. The monitor shows a rate of 67 with normal sinus rhythm. Imaging/x-ray results per my interpretation: Chest x-ray does not show mediastinal widening, pneumonia or CHF. Chronic Medical/Social conditions affecting care: Recent hospital discharge, history of COPD. Care/Management discussed with: Case management, the on-call hospitalist. 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 at [facility] Colonic diverticular abscess Nausea and vomiting Change in bowel habits Domestic problems (Acute) Anxiety (Acute) Osteoporosis History of colon polyps Gastritis Elevated troponin (Acute) Acute hypokalemia (Acute) Intractable nausea and vomiting (Acute) S/P trigger finger release Dementia stage 3 Trigger finger, right ring finger Trigger thumb of right hand AMS (altered mental status) Encounter for pre-operative examination COVID (Acute) Other instability, left elbow Rotator cuff tear, left Celiac disease Encounter for pre-operative examination Abnormal EKG (Acute) Hypercalcemia (Acute) Vomiting (Acute) Acute duodenitis (Acute) COPD with acute exacerbation (Acute) Restless leg Anemia (Acute) Chronic pain PATTON (dyspnea on exertion) Status post reverse arthroplasty of right shoulder (~04/2020) BPH (benign prostatic hyperplasia) GERD (gastroesophageal reflux disease) Well controlled and stable Hypertension Hyperlipidemia Hx of venous thrombosis and embolism (Acute) Bipolar disorder, unspecified (Acute) Weight loss Pulmonary nodule Hemostasis disorder (Acute) COPD (chronic obstructive pulmonary disease) (Acute) COPD (chronic obstructive pulmonary disease) (Chronic) Heart disease (Chronic) Severe recurrent major depression without psychotic features (Acute 04/19/11) Acute exacerbation of chronic obstructive airways disease (Acute 02/07/11) Generalized anxiety disorder (Chronic 03/31/11) Medical History Diverticulitis large intestine Transaminitis Perforation of sigmoid colon due to diverticulitis Acute exacerbation of chronic obstructive pulmonary disease Hx of deep venous thrombosis (2019) rightT ARM 2018 (TREATED WITH ELIQUIS)- on AC x 6 months- then d/c'ed- no issues since. Did follow with heme- no known clotting issues - felt secondary to A-port- A port removed. Bipolar affective disorder in remission RBBB (right bundle branch block with left anterior fascicular block) CAD (coronary artery disease) COPD (chronic obstructive pulmonary disease) Pulmonary nodule 1 cm or greater in diameter Restless leg RBBB (right bundle branch block with left anterior fascicular block) Heart disease GERD (gastroesophageal reflux disease) PATTON (dyspnea on exertion) CAD (coronary artery disease) Hx of colonic polyps Dementia per chart, pt. was able to complete PAT interview with ease Osteoporosis Bipolar affective disorder in remission Hx pulmonary embolism (2009) Manic episode (03/2024) reports manic depressive at beginning of march, resolved Insomnia On anticoagulant therapy plavix daily Hx of non-ST elevation myocardial infarction (NSTEMI) (2019) "debateable" History of COVID-19 (2021) diagnosed 02/04/22 via home test only--cough, fatigue, muscle aches, runny nose--no symptoms now Celiac disease On home oxygen therapy 2L prn PVD (peripheral vascular disease) S/p angioplasties. On Plavix- cannot tolerate ASA Anxiety and depression Hearing deficit b/l perez's Aortic valve defect Had AVR secondary to AR per patient "HAS MINIMAL LEAKING FROM PROSTHETIC COW AORTIC VALVE" Lung nodules Following with pulm Sleep apnea cpap with 2L at hs Chronic obstructive pulmonary disease stage 4 COPD, on prednisone maintenance program, currently going thru eval for lung transplant list Asthma Well controlled - inhalers daily and prn--nebulizer prn Surgical History Hx of colonoscopy with polypectomy Status post trigger finger release 05/2023 @ [facility]--right thumb/ring finger History of transesophageal echocardiography (MELISSA) (~08/16/19) History of cardiac cath (~05/15/19) @ [facility] with Dr. Ji, no stents, no CA, History of vascular access device infuasport placed and removed in past for IGG History of umbilical hernia repair History of right inguinal hernia repair History of cholecystectomy History of esophagogastroduodenoscopy (EGD) History of phacoemulsification of cataract of both eyes with intraocular lens implantation History of angioplasty LEs and hand History of aortic valve replacement (2009) 2009 @ [facility] -follows with Dr. 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 Beliefs That Will Affect Care: None marital status: Current Living Situation: Spouse Current Living Situation Comment: Lives with and son Other Information That Helps Us Care for You: No Feels Safe at Home: Yes Gender Identity: Male Assistive Devices: Hearing Aid - Bilateral and Lift Chair Allergies Allergies Allergy/AdvReac Type Severity Reaction Status Date / Time gluten Allergy Severe celiac Verified 09/18/24 09:31 disease wheat Allergy Severe celiac Verified 09/18/24 09:31 disease NSAIDS (Non-Steroidal Allergy Intermediate Hives Verified 09/18/24 09:31 Anti-Inflamma aspirin Allergy Mild RASH,HIVES Verified 09/18/24 09:31 lisinopril Allergy Mild Hives Verified 09/18/24 09:31 naproxen [From Naprosyn] Allergy Mild Hives Verified 09/18/24 09:31 Home Meds Home Medications Medication Instructions Recorded Confirmed atorvastatin 80 mg tablet 80 mg PO QAM 01/16/19 10/23/24 ferrous sulfate 325 mg (65 mg 325 mg PO Q OTHER DAY 12/11/20 10/23/24 iron) tablet clopidogrel 75 mg tablet (Plavix) 75 mg PO QAM 04/08/22 10/23/24 clobetasol 0.05 % topical cream 1 applic topical DAILY PRN Rash 11/14/23 10/23/24 ezetimibe 10 mg tablet (Zetia) 10 mg PO HS 11/14/23 10/23/24 folic acid 1 mg tablet 1 mg PO DAILY 11/14/23 10/23/24 rivastigmine 4.6 mg/24 hour 1 patch transdermal DAILY 11/14/23 10/23/24 transdermal patch ketotifen fumarate 0.025 % (0.035 1 drp ophthalmic (eye) BID PRN Eye 12/13/23 10/23/24 %) eye drops Irritation calcium 315 mg-vitamin D3 250 1 tab PO BID 02/28/24 10/23/24 unit-phytosterols 200 mg tablet cholecalciferol (vitamin D3) 25 50 mcg PO QAM 02/28/24 10/23/24 mcg (1,000 unit) tablet famotidine 20 mg tablet 20 mg PO QAM 02/28/24 10/23/24 pantoprazole 40 mg tablet,delayed 40 mg PO QAM 02/28/24 10/23/24 release teriparatide 20 mcg/dose (620 20 mcg subcut QA 02/28/24 10/23/24 mcg/2.48 mL) subcutaneous pen injector food supplemt, lactose-reduced 1 ea PO QAM 04/06/24 10/23/24 (Ensure oral liquid) ketoconazole 2 % shampoo 1 applic topical Q OTHER DAY 04/06/24 10/23/24 acetaminophen 325 mg tablet 325 mg PO DAILY PRN INFUSION 10/23/24 10/23/24 amlodipine 10 mg tablet 5 mg PO DAILY 10/23/24 10/23/24 carvedilol 25 mg tablet 12.5 mg PO BID 10/23/24 10/23/24 diphenhydramine HCl 25 mg capsule 25 mg PO DAILY PRN INFUSION 10/23/24 10/23/24 guaifenesin 600 mg tablet, 600 mg PO Q12H PRN Congestion 10/23/24 10/23/24 extended release 12 hr immune glob G 40 gram/400 400 ml IV DIRECTED 10/23/24 10/23/24 mL(10%)-gly-IgA ave 46 mcg/mL injection soln methylprednisolone acetate 40 40 mg IM DIRECTED 10/23/24 10/23/24 mg/mL suspension for injection ondansetron 4 mg disintegrating 4 mg PO DIRECTED PRN INFUSION 10/23/24 10/23/24 tablet prednisone 20 mg tablet 20 mg PO DIRECTED 10/23/24 10/23/24 prednisone 5 mg tablet 5 mg PO DIRECTED 10/23/24 10/23/24 tiotropium bromide 18 mcg capsule 2 cap inhalation DAILY 10/23/24 10/23/24 with inhalation device (Spiriva with HandiHaler) Previous Rx's Medication Instructions Recorded divalproex 250 mg tablet,extended 250 mg PO BID #60 tabs 04/08/24 release 24 hr olanzapine 10 mg tablet 10 mg PO HS #30 tabs 04/08/24 albuterol sulfate 90 mcg/actuation 2 puff inhalation Q6H PRN 07/13/24 aerosol inhaler Shortness Of Breath #8.5 grams Discontinue DME #1 ea 10/05/24 roflumilast 500 mcg tablet 500 mcg PO DAILY #30 tabs 10/10/24 azithromycin 500 mg tablet 500 mg PO .COMPLEX #36 tabs 10/11/24 Results & Data (ED) Vital Signs Vital Signs - 24 hr 10/23/24 12:04 10/23/24 12:04 10/23/24 15:26 Temperature 36.8 C Temperature Source Oral Pulse Rate 74 Pulse Rate [Apical] 67 Pulse Strength Normal Respiratory Rate 22 18 Respiratory Effort / Characteristics Spontaneous Non-Labored Spontaneous Respiratory Depth Normal Respiratory Pattern Regular Blood Pressure 106/73 Blood Pressure [Right Arm] 173/68 H Blood Pressure Mean 84 Blood Pressure Mean [Right Arm] 103 Blood Pressure Position Sitting Pulse Oximetry 94 93 Oxygen Delivery Method Room Air Room Air Sepsis Recent Fever Within 48 Hours No Sepsis New/Unexplained Change in Mental Status No Sepsis Action Taken by Nursing No Action Required 10/23/24 15:28 10/23/24 17:00 Temperature Temperature Source Pulse Rate Pulse Rate [Apical] 62 Pulse Strength Respiratory Rate 18 Respiratory Effort / Characteristics Respiratory Depth Respiratory Pattern Blood Pressure Blood Pressure [Right Arm] 152/76 H Blood Pressure Mean Blood Pressure Mean [Right Arm] 101 Blood Pressure Position Pulse Oximetry 95 Oxygen Delivery Method Room Air Sepsis Recent Fever Within 48 Hours Sepsis New/Unexplained Change in Mental Status N/A Sepsis Action Taken by Nursing No Action Required Home Medications Current Medication List: was personally reviewed by me Laboratory Data Attestation: I reviewed the patient's lab results. 10/23/24 13:41 10/23/24 13:41 Lab Results 10/23/24 10/23/24 Range/Units 13:41 15:41 WBC 10.54 (4.8-10.8) K/ul RBC 4.22 L (4.70-6.10) M/uL Hgb 13.1 L (14.0-18.0) g/dl Hct 37.1 L (42.0-52.0) % MCV 87.9 (80.0-100.0) fL MCH 31.0 (25.0-34.0) pg MCHC 35.3 (32.0-36.0) g/dL RDW Std Deviation 43.2 (36.4-46.3) fL RDW Coeff of Rosario 13.4 (11.5-14.5) % Plt Count 188 (130-400) K/uL MPV 9.7 (9.4-12.4) fL Immature Gran % (Auto) 1.5 % Neut % (Auto) 90.1 % Lymph % (Auto) 5.2 % Cocke % (Auto) 3.0 % Eos % (Auto) 0.0 % Baso % (Auto) 0.2 % Neut # (Auto) 9.49 H (1.40-6.50) K/uL Lymph # (Auto) 0.55 L (1.20-3.40) K/uL Cocke # (Auto) 0.32 (0.11-0.59) K/uL Eos # (Auto) 0.00 (0.00-0.50) K/uL Baso # (Auto) 0.02 (0.00-0.20) K/uL Immature Gran # (Auto) 0.16 (0.01-0.20) K/uL RBC Morphology Unremarkable Sodium 141 (136-145) mmol/L Potassium 4.3 (3.5-5.1) mmol/L Chloride 104 (98-107) mmol/L Carbon Dioxide 31 (21-32) mmol/L Anion Gap 6 (3-11) BUN 33 H (6-23) mg/dl Creatinine 0.92 (0.6-1.4) mg/dl Est Cr Clr Drug Dosing 75.6 ml/min eGFR 90.05 BUN/Creatinine Ratio 35.9 H (10-20) Glucose 105 H (70-99(Fasting)) mg/dl Calcium 8.3 L (8.6-10.3) mg/dl Total Bilirubin 0.6 (0.2-1.0) mg/dl AST 22 (13-39) U/L ALT 23 (7-52) U/L Alkaline Phosphatase 49 (34-104) U/L Troponin I High Sens 26.5 H 22.1 H (0-20) pg/ml Total Protein 6.6 (6.0-8.3) gm/dl Albumin 3.4 (3.4-5.0) gm/dl Globulin 3.2 (2.5-4.0) gm/dl Albumin/Globulin Ratio 1.1 (0.9-2) Lipase 38 (11-82) U/L Administered Medications Discontinued Medications Albuterol (Albut/Ipratrop 3mg/0.5mg Neb 3 Ml Vial) 12 ml NEB ONE ONE; Protocol Stop: 10/23/24 15:31 Last Admin: 10/23/24 15:40 Dose: 12 ml Documented By: JOSIANE Ceftriaxone Sodium (Rocephin) 2,000 mg in 50 mls @ 100 mls/hr IV NOW STA Stop: 10/23/24 18:43 Last Infusion: 10/23/24 19:25 Dose: Infused Documented By: Admin: 10/23/24 18:58 Dose: 100 mls/hr Documented By: NRB Ioversol (Optiray 320 125ml) 119 ml IV ONCE ONE Stop: 10/23/24 18:32 Last Admin: 10/23/24 18:31 Dose: 119 ml Documented By: JULIO Methylprednisolone (Methylprednisolone 125 Mg/2 Ml Vial) 60 mg IV NOW STA Stop: 10/23/24 15:31 Last Admin: 10/23/24 15:40 Dose: 60 mg Documented By: NROzzie Imaging Data Radiologist's Impression: Chest X-Ray 10/23/24 12:07 XR chest 1V portable CLINICAL HISTORY: Chest pain, nonspecific COMPARISON STUDY: 10/16/2024 FINDINGS: Stable cardiac valve repair. Heart size and pulmonary vasculature are normal. Stable emphysema. No effusion, consolidation, or pneumothorax. IMPRESSION: No acute findings. ACT 112: Negative or not required by law. Electronically signed by: Brenda Olson M.D. 10/23/2024 12:47 PM Chest CTA 10/23/24 18:14 Clinical history: Shortness of breath Technique: Axial computed tomography images were obtained of the chest after the administration of intravenous contrast according to the CT angiogram protocol Comparison is made to the prior CT dated 11/14/2023 Findings: There is no definite sign of pulmonary embolism. There is severe emphysema. There is no sign of pneumonia. There is mild subsegmental atelectasis in both lower lobes. There is mild atelectasis or scar in the lingula also. There is no pleural effusion or pneumothorax. There is no sign of pulmonary fibrosis or other diffuse interstitial process. No endobronchial lesion is seen There is no mediastinal, hilar, or axillary adenopathy. The thoracic aorta appears unremarkable with no sign of aneurysm or dissection. There is no pericardial effusion. There is an aortic valve replacement. Postsurgical changes are seen of coronary artery bypass grafting surgery. The visualized upper abdomen appears unremarkable. There is a right shoulder replacements, resulting in surrounding artifact. No fracture is seen. No focal osseous lesion is evident Impression: 1. No definite sign of pulmonary embolism 2. Severe emphysema Electronically signed by Khalif Cabalelro 10-23-2024 6:58 PM Discharge Plan Visit Data Chief Complaint: Shortness of Breath/Dyspnea Stated Complaint: COPD, EXASHTURBATION/SOB ED Provider: Rc Rowland Discharge Problem: SOB (shortness of breath), COPD exacerbation, PATTON (dyspnea on exertion), Failure of outpatient treatment Patient Disposition: Admitted As Inpatient Condition: Fair Discharge Instructions Interventions: ED Discharge Assessment Last Done: 10/23/24 21:24
[2024-10-23] MEDS: methylPREDNISolone 125 MG/2 ML VIAL IV STA (15:40)
[2024-10-23] MEDS: ALBUT/IPRATROP 3MG/0.5MG NEB 3 ML VIAL NEB ONE (15:40)
--- NOTE | 2024-10-23 16:21 | Electrocardiogram Report ---
Test Reason : Blood Pressure : */* mmHG Vent. Rate : 61 BPM Atrial Rate : 61 BPM P-R Int : 142 ms QRS Dur : 120 ms QT Int : 428 ms P-R-T Axes : 48 -51 71 degrees QTcB Int : 430 ms Normal sinus rhythm Right bundle branch block Left anterior fascicular block Bifascicular block Septal infarct , age undetermined Abnormal ECG When compared with ECG of 16-Oct-2024 11:30, No significant change was found Confirmed by Fernando Ny ([id number]) on 10/23/2024 4:20:53 PM Referred By: Confirmed By: Fernando Ny
[2024-10-23] MEDS: OPTIRAY 320 125ml IV ONE (18:31)
--- NOTE | 2024-10-23 18:34 | History & Physical Report ---
Date of Service October 23, 2024 Assessment & Plan (1) Acute exacerbation of chronic obstructive pulmonary disease: Plan: Assessment: 1. Acute exacerbation of COPD. He was just discharged with an acute exacerbation of COPD. Will continue nebulizers. Continue IV steroids. He had IV Rocephin in the ER. CTA of the chest is pending. If there is an infiltrate will continue antibiotics if negative for infiltrate we will not. Respiratory bio fire panel pending. 2. Hypertension. Continue home medications. 3. History of coronary artery disease. Continue Plavix and statin therapy when med rec is complete. 4. History of anxiety and depression. Continue home meds. 5. History of GERD. Continue home medications. 6. History of eye GG deficiency. 7. History of BPH. 8. History of celiac disease. Plan: As described above. Steroids, nebulizers. Follow-up on CTA results and BioFire when available. Complete med rec when available. Please refer to orders for further planning. History of Present Illness Chief Complaint: Ongoing shortness of breath. Primary Care Provider: Fanny Clark PA-C This is a 68-year-old male who was recently admitted and discharged for acute exacerbation of COPD. He remains on prednisone 30 mg daily. He comes in today with ongoing shortness of breath and air hunger. He is 95% on room air. Breathing 18 breaths/min. Course in the ER he had an hour-long nebulizer. Received 60 mg of IV Solu- Medrol. A stat CTA of the chest was ordered and we were called admit the patient for further evaluation and treatment as attempt was made for discharge home with the patient does not feel he is ready to go home and still feels air hunger.. He is coughing but it is very little production very scant sputum he states. Will going to repeat a BioFire. Await for the CTA results. Will continue IV steroids and nebulizers for COPD exacerbation. Allergies Allergy/AdvReac Type Severity Reaction Status Date / Time gluten Allergy Severe celiac Verified 09/18/24 09:31 disease wheat Allergy Severe celiac Verified 09/18/24 09:31 disease NSAIDS (Non-Steroidal Allergy Intermediate Hives Verified 09/18/24 09:31 Anti-Inflamma aspirin Allergy Mild RASH,HIVES Verified 09/18/24 09:31 lisinopril Allergy Mild Hives Verified 09/18/24 09:31 naproxen [From Naprosyn] Allergy Mild Hives Verified 09/18/24 09:31 Home Medications Medication Instructions Recorded Confirmed Type atorvastatin 80 mg tablet 80 mg PO QAM 01/16/19 10/16/24 History theophylline 400 mg 400 mg PO BID 01/16/19 10/16/24 History tablet,extended release 24 hr ferrous sulfate 325 mg (65 mg 325 mg PO Q OTHER DAY 12/11/20 10/16/24 History iron) tablet clopidogrel 75 mg tablet (Plavix) 75 mg PO QAM 04/08/22 10/16/24 History clobetasol 0.05 % topical cream 1 applic topical DAILY PRN Rash 11/14/23 10/16/24 History ezetimibe 10 mg tablet (Zetia) 10 mg PO HS 11/14/23 10/16/24 History folic acid 1 mg tablet 1 mg PO DAILY 11/14/23 10/16/24 History rivastigmine 4.6 mg/24 hour 1 patch transdermal DAILY 11/14/23 10/16/24 History transdermal patch ketotifen fumarate 0.025 % (0.035 1 drp ophthalmic (eye) BID PRN Eye 12/13/23 10/16/24 History %) eye drops Irritation chlorthalidone 25 mg tablet 25 mg PO QPM 01/03/24 10/16/24 History calcium 315 mg-vitamin D3 250 1 tab PO BID 02/28/24 10/16/24 History unit-phytosterols 200 mg tablet cholecalciferol (vitamin D3) 25 50 mcg PO QAM 02/28/24 10/16/24 History mcg (1,000 unit) tablet famotidine 20 mg tablet 20 mg PO QAM 02/28/24 10/16/24 History pantoprazole 40 mg tablet,delayed 40 mg PO QAM 02/28/24 10/16/24 History release teriparatide 20 mcg/dose (620 20 mcg subcut QAM 02/28/24 10/16/24 History mcg/2.48 mL) subcutaneous pen injector food supplemt, lactose-reduced 1 ea PO QAM 04/06/24 10/16/24 History (Ensure oral liquid) ketoconazole 2 % shampoo 1 applic topical Q OTHER DAY 04/06/24 10/16/24 History tamsulosin 0.4 mg capsule 0.4 mg PO HS 04/06/24 10/16/24 History carvedilol 6.25 mg tablet 6.25 mg PO BID #60 tabs 04/08/24 10/16/24 Rx divalproex 250 mg tablet,extended 250 mg PO BID #60 tabs 04/08/24 10/16/24 Rx release 24 hr olanzapine 10 mg tablet 10 mg PO HS #30 tabs 04/08/24 10/16/24 Rx albuterol sulfate 90 mcg/actuation 2 puff inhalation Q6H PRN 07/13/24 10/16/24 Rx aerosol inhaler Shortness Of Breath #8.5 grams ensifentrine 3 mg/2.5 mL 3 mg (2.5 mL) inhalation BID #150 07/13/24 10/16/24 Rx suspension for nebulization mL fluticasone 500 mcg-salmeterol 50 1 inh inhalation BID #60 ea 07/13/24 10/16/24 Rx mcg/dose blistr powdr for inhalation tiotropium bromide 18 mcg capsule 1 cap inhalation QAM 30 days #30 07/13/24 10/16/24 Rx with inhalation device (Spiriva caps with HandiHaler) dicyclomine 20 mg tablet 20 mg PO QID #20 tabs 07/18/24 10/16/24 Rx Discontinue DME #1 ea 10/05/24 Rx roflumilast 500 mcg tablet 500 mcg PO DAILY #30 tabs 10/10/24 10/16/24 Rx azithromycin 500 mg tablet 500 mg PO .COMPLEX #36 tabs 10/11/24 10/16/24 Rx prednisone 10 mg tablet See Rx Instructions .Route 10/19/24 Rx .COMPLEX #34 tabs Past Med/Surg History Problem List (Updated 10/22/24 @ 00:06 by Background [place]) Acute exacerbation of chronic obstructive pulmonary disease (Acute) Ex-smoker Chronic bronchitis 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 at [facility] Colonic diverticular abscess Nausea and vomiting Change in bowel habits Domestic problems (Acute) Anxiety (Acute) Osteoporosis History of colon polyps Gastritis Elevated troponin (Acute) Acute hypokalemia (Acute) Intractable nausea and vomiting (Acute) S/P trigger finger release Dementia stage 3 Trigger finger, right ring finger Trigger thumb of right hand AMS (altered mental status) Encounter for pre-operative examination COVID (Acute) Other instability, left elbow Rotator cuff tear, left Celiac disease Encounter for pre-operative examination Abnormal EKG (Acute) Hypercalcemia (Acute) Vomiting (Acute) Acute duodenitis (Acute) COPD with acute exacerbation (Acute) Restless leg Anemia (Acute) Chronic pain PATTON (dyspnea on exertion) Status post reverse arthroplasty of right shoulder (~04/2020) BPH (benign prostatic hyperplasia) GERD (gastroesophageal reflux disease) Well controlled and stable Hypertension Hyperlipidemia Hx of venous thrombosis and embolism (Acute) Bipolar disorder, unspecified (Acute) Weight loss Pulmonary nodule Hemostasis disorder (Acute) COPD (chronic obstructive pulmonary disease) (Acute) COPD (chronic obstructive pulmonary disease) (Chronic) Heart disease (Chronic) Severe recurrent major depression without psychotic features (Acute 04/19/11) Acute exacerbation of chronic obstructive airways disease (Acute 02/07/11) Generalized anxiety disorder (Chronic 03/31/11) Medical History Diverticulitis large intestine Transaminitis Perforation of sigmoid colon due to diverticulitis Acute exacerbation of chronic obstructive pulmonary disease Hx of deep venous thrombosis (2019) rightT ARM 2018 (TREATED WITH ELIQUIS)- on AC x 6 months- then d/c'ed- no issues since. Did follow with heme- no known clotting issues - felt secondary to A-port- A port removed. Bipolar affective disorder in remission RBBB (right bundle branch block with left anterior fascicular block) CAD (coronary artery disease) COPD (chronic obstructive pulmonary disease) Pulmonary nodule 1 cm or greater in diameter Restless leg RBBB (right bundle branch block with left anterior fascicular block) Heart disease GERD (gastroesophageal reflux disease) PATTON (dyspnea on exertion) CAD (coronary artery disease) Hx of colonic polyps Dementia per chart, pt. was able to complete PAT interview with ease Osteoporosis Bipolar affective disorder in remission Hx pulmonary embolism (2009) Manic episode (03/2024) reports manic depressive at beginning of march, resolved Insomnia On anticoagulant therapy plavix daily Hx of non-ST elevation myocardial infarction (NSTEMI) (2019) "debateable" History of COVID-19 (2021) diagnosed 02/04/22 via home test only--cough, fatigue, muscle aches, runny nose--no symptoms now Celiac disease On home oxygen therapy 2L prn PVD (peripheral vascular disease) S/p angioplasties. On Plavix- cannot tolerate ASA Anxiety and depression Hearing deficit b/l perez's Aortic valve defect Had AVR secondary to AR per patient "HAS MINIMAL LEAKING FROM PROSTHETIC COW AORTIC VALVE" Lung nodules Following with pulm Sleep apnea cpap with 2L at hs Chronic obstructive pulmonary disease stage 4 COPD, on prednisone maintenance program, currently going thru eval for lung transplant list Asthma Well controlled - inhalers daily and prn--nebulizer prn Surgical History Hx of colonoscopy with polypectomy [place] [facility] [place] History of transesophageal echocardiography (MELISSA) (~08/16/19) History of cardiac cath (~05/15/19) @ [facility] with Dr. Ji, no stents, no WI, History of vascular access device infuasport placed and removed in past for IGG History of umbilical hernia repair History of right inguinal hernia repair History of cholecystectomy History of esophagogastroduodenoscopy (EGD) History of phacoemulsification of cataract of both eyes with intraocular lens implantation History of angioplasty LEs and hand History of aortic valve replacement (2009) 2009 @ [facility] -follows with Dr. Ji in [place] History of bronchoscopy Family History Father Family history of diabetes mellitus Other No family history of adverse response to anesthesia Social History Smoking Status: Former smoker Tobacco Type: Cigarettes Age Started Using Tobacco: 14; Age Quit Using Tobacco: 54; Second Hand Exposure: No; Do You Dip or Chew Tobacco: No; Hx Alcohol Use: No Hx Substance Use: No Preferred Language: [place] Communication Ability: Effective Director Prison Required: No Beliefs That Will Affect Care: Evangelical Evangelical Beliefs: rastafarian marital status: Current Living Situation: Spouse Current Living Situation Comment: Lives with and son Feels Safe at Home: Yes Gender Identity: Male Assistive Devices: Cane and Oxygen - at Night Review of Systems Review of Systems: A 10 point review of system was obtained and unless otherwise stated here or in history of present illness are negative and noncontributory to chief complaint. Physical Exam Physical Exam: In General: In general 68-year-old male is alert and oriented x 3 at the time my exam. 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 No scleral icterus no conjunctival injection external auditory canals are patent septum is in the midline nose is without discharge oral mucosa is pink and moist without lesion. NECK: Supple no rigidity no lymphadenopathy no thyromegaly no carotid bruits no JVD no masses. HEART: Regular rate and rhythm I do not appreciate any ectopy or rub. No murmur. LUNGS: Bilateral expiratory wheezes. Left worse than right. No rhonchi. No rales. ABDOMEN: Soft nontender, no rebound, no peritoneal signs, positive bowel sounds, no appreciable organomegaly. EXTREMITIES: Intact, no peripheral cyanosis, clubbing or edema. Strength is 5 out of 5 in extremities x4, no pathological reflexes. NEUROLOGICAL: Cranial nerves II through XII are grossly intact with no focal deficit elicited upon examination. No tremor. Results & Data Results & Data Vital Signs (Past 12 Hours) Vital Signs Temp Pulse Pulse Resp BP BP Pulse Ox 10/23/24 17:00 62 18 152/76 H 95 10/23/24 15:26 67 18 173/68 H 93 10/23/24 12:04 36.8 C 74 22 106/73 94 O2 Del Method 10/23/24 17:00 Room Air 10/23/24 15:26 Room Air 10/23/24 12:04 Room Air Code Status & VTE Plan Code Status CODE STATUS: Full code PG Care Time/CCT Total # of Minutes Spent Total Time Spent with Patient: Total time spent is greater than 50% in coordination of care (as documented) at patient's floor/unit and/or counseling patient: Coding Level of Care Code 86829 INT INP/OBS CARE 3/75MIN Diagnoses Acute exacerbation of chronic obstructive pulmonary disease J44.1
[2024-10-23] MEDS: cefTRIAXone SODIUM 2,000 MG/50 ML BAG IV STA (18:58)
--- NOTE | 2024-10-23 18:58 | CT Scan Report ---
Clinical history: Shortness of breath Technique: Axial computed tomography images were obtained of the chest after the administration of intravenous contrast according to the CT angiogram protocol Comparison is made to the prior CT dated 11/14/2023 Findings: There is no definite sign of pulmonary embolism. There is severe emphysema. There is no sign of pneumonia. There is mild subsegmental atelectasis in both lower lobes. There is mild atelectasis or scar in the lingula also. There is no pleural effusion or pneumothorax. There is no sign of pulmonary fibrosis or other diffuse interstitial process. No endobronchial lesion is seen There is no mediastinal, hilar, or axillary adenopathy. The thoracic aorta appears unremarkable with no sign of aneurysm or dissection. There is no pericardial effusion. There is an aortic valve replacement. Postsurgical changes are seen of coronary artery bypass grafting surgery. The visualized upper abdomen appears unremarkable. There is a right shoulder replacements, resulting in surrounding artifact. No fracture is seen. No focal osseous lesion is evident Impression: 1. No definite sign of pulmonary embolism 2. Severe emphysema Electronically signed by Khalif Caballero 10-23-2024 6:58 PM
[2024-10-23 19:35] LABS: Adenovirus PCR Not Detected (NotDetected); Bordetella parapertussis PCR Not Detected (NotDetected); Bordetella pertussis PCR Not Detected (NotDetected); Chlamydia pneumoniae PCR Not Detected (NotDetected); Coronavirus 229E PCR Not Detected (NotDetected); Coronavirus CoV-2 (COVID19)PCR Not Detected (NotDetected); Coronavirus HKU1 PCR Not Detected (NotDetected); Coronavirus NL63 PCR Not Detected (NotDetected); Coronavirus OC43PCR Not Detected (NotDetected); Human Metapneumovirus PCR Not Detected (NotDetected); Influenza A PCR Not Detected (NotDetected); Influenza B PCR Not Detected (NotDetected); Mycoplasma pneumoniae PCR Not Detected (NotDetected); Parainfluenza Virus 1 PCR Not Detected (NotDetected); Parainfluenza Virus 2 PCR Not Detected (NotDetected); Parainfluenza Virus 3 PCR Not Detected (NotDetected); Parainfluenza Virus 4 PCR Not Detected (NotDetected); Respiratory Syncytial VirusPCR Not Detected (NotDetected); Rhinovirus/Enterovirus PCR Not Detected (NotDetected)
[2024-10-23] MEDS ORDERED: ACETAMINOPHEN 325 MG TAB PO PRN (21:23)
[2024-10-23] MEDS: OLANZapine 10 MG TAB PO SCH (22:18)
[2024-10-23] MEDS: DIVALPROEX EXTENDED RELEASE 250 MG TABCR PO SCH (22:18)
[2024-10-23] MEDS: carvediloL 12.5 MG TAB PO SCH (22:18)
[2024-10-23] MEDS: EZETIMIBE 10 MG TAB PO SCH (22:18)
[2024-10-23] MEDS: ALBUT/IPRATROP 3MG/0.5MG NEB 3 ML VIAL INH SCH (22:20)
[2024-10-24 04:46] LABS: Hematocrit (blood only) 32.4 % (42.0-52.0); Hemoglobin 11.5 g/dl (14.0-18.0); Immature Granulocytes # (auto) 0.09 K/uL (0.01-0.20); Immature Granulocytes % (auto) 1.3 %; Mean Corpuscular Hemoglobin 31.1 pg (25.0-34.0); Mean Corpuscular Hgb Conc 35.5 g/dL (32.0-36.0); Mean Corpuscular Volume 87.6 fL (80.0-100.0); Monocytes # (auto) 0.16 K/uL (0.11-0.59); Monocytes % (auto) 2.2 %; Neutrophils # (auto) 6.37 K/uL (1.40-6.50); Neutrophils % (auto) 89.5 %; Platelet Count 167 K/uL (130-400); RDW Coefficient of Variation 13.1 % (11.5-14.5); RDW Standard Deviation 41.9 fL (36.4-46.3); White Blood Count 7.12 K/ul (4.8-10.8)
[2024-10-24 05:03] LABS: BUN Creatinine Ratio 34.7 (10-20); Calcium 7.7 mg/dl (8.6-10.3); Creatinine Clr Calc Pharmacy 73.2 ml/min; Magnesium 2.1 mg/dl (1.7-2.4); Potassium 4.4 mmol/L (3.5-5.1)
[2024-10-24 05:12] LABS: Troponin I High Sensitivity 15.6 pg/ml (0-20)
--- NOTE | 2024-10-24 06:56 | Hospitalist Progress Note ---
Date of Service October 24, 2024 Assessment & Plan (1) PATTON (dyspnea on exertion): (2) COPD with emphysema: Plan Pt is a 68 yo male with a past med hx of severe emphysema/COPD hoping for transplant and previously on hospice 10 years ago, among other chronic conditions who presents to the hospital on 10/23 for shortness of breath. #Dyspnea in the setting of severe/end stage COPD - he has had several exac recently, just discharged for an exac of this last week - at this time given he has had good saturations with no or minimal oxygen at lowest at home was 86%, I do not believe he is having an acute exac of his COPD - discussed with pt medications for symptoms of air hunger such as morphine drops to help alleviate his symptoms that are common for those with end stage COPD, he is agreeable to try this, will start at 5mg dosing and increase based on response - will continue steroids for now and taper here in the hospital Chronic conditions HTN; continue home medications CAD: continue plavix and statin GERD: continue home meds 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 weeks Celiac: GF diet VTE ppx: lovenox Admission and Anticipated Discharge Date Admission Date: October 23, 2024 Supervising Physician Co-Signing Physician Notes I personally examined the patient and verified all siddiqui points of history and exam, discussed case, and agree with decision making with Dr Spence feeling about the same. noted feeling worse after dropping from 60-> 40mg that day lungs got tight. transplant eval again 11/09 vitals noted nad heent nc at mmm breathing tight and coarse COPD / exac -?all bad lungs bad virus vs mind/body stress when dropping steroids -d/w pt in depth -follow closely -possibly taper steroids inpatient Subjective Pt seen at bedside this morning. He states that he went home from last admission and was given a prednisone taper. He states he did well with 60 mg prednisone for the first 3 days, then when transitioned down to 40 mg he states he then started to feel shortness of breath/air hunger. He states that the lowest his oxygen dropped at home on room air was 86%. He states he was worried that his breathing would worsen and he would have an exacerbation so he came in immediately. No chest pain today, breathing still feels tight but better than on admission. Review of Systems Review of Systems: Per HPI. Physical Exam Physical Exam: General:Alert and oriented, no acute distress, HEENT: Normocephalic, moist oral mucosa, Cardio: Regular rate and rhythm, no murmur, Resp:Lungs with globally poor air movement and mild wheezing Skin: Warm, pink, dry, Results & Data Results & Data Vital Signs (Past 12 Hours) Vital Signs Temp Pulse Pulse Resp BP BP Pulse Ox 10/24/24 04:48 36.5 C 55 L 19 163/77 H 97 10/24/24 04:44 57 L 10/24/24 04:41 10/24/24 03:54 54 L 19 10/24/24 03:42 50 L 20 92 10/24/24 03:36 51 L 20 93 10/24/24 02:42 54 L 23 94 10/24/24 02:27 55 L 24 95 10/24/24 01:30 57 L 96 10/24/24 01:29 59 L 10/24/24 01:25 128/84 10/24/24 01:08 59 L 18 96 10/23/24 22:37 67 18 159/69 H 95 10/23/24 21:27 10/23/24 21:27 82 18 134/77 96 O2 Del Method 10/24/24 04:48 Room Air 10/24/24 04:44 10/24/24 04:41 Room Air 10/24/24 03:54 10/24/24 03:42 Room Air 10/24/24 03:36 10/24/24 02:42 10/24/24 02:27 10/24/24 01:30 Room Air 10/24/24 01:29 10/24/24 01:25 10/24/24 01:08 Room Air 10/23/24 22:37 Room Air 10/23/24 21:27 Room Air 10/23/24 21:27 Room Air Resident Activity Tracking Resident Involvement: Resident Care Provided Care Provided: Adult Hospital Medicine
[2024-10-24] MEDS: ROFLUMILAST 500 MCG TAB PO SCH (08:14)
[2024-10-24] MEDS: AZITHROMYCIN 250 MG TAB PO SCH (08:14)
[2024-10-24] MEDS: CHOLECALCIFEROL 25 MCG (1000 UNITS) TAB PO SCH (08:14)
[2024-10-24] MEDS: CLOPIDOGREL BISULFATE 75 MG TAB PO SCH (08:14)
[2024-10-24] MEDS: methylPREDNISolone 40 MG in SYRINGE 0 ML IV SCH (08:14)
[2024-10-24] MEDS: FOLIC ACID 1 MG TAB PO SCH (08:15)
[2024-10-24] MEDS: PANTOprazole 40 MG TAB PO SCH (08:15)
[2024-10-24] MEDS: ATORVASTATIN 40 MG TAB PO SCH (08:15)
[2024-10-24] MEDS: amLODIPine BESYLATE 5 MG TAB PO SCH (08:15)
[2024-10-24] MEDS: UMECLIDINIUM BROMIDE 62.5MCG/BLISTER 7 PUFFS/INHALER INH SCH (08:17)
[2024-10-24] MEDS: FAMOTIDINE 20 MG TAB PO SCH (09:43)
[2024-10-24] MEDS: ENOXAPARIN INJ 40 MG/0.4 ML SYR SQ SCH (17:02)
--- NOTE | 2024-10-24 17:58 | Billing Data ---
Date of Service October 24, 2024 Coding Level of Care Code 81577 SUB INP/OBS CARE MIN
[2024-10-24] MEDS: MELATONIN 3 MG TAB PO PRN (21:14)
--- NOTE | 2024-10-25 06:56 | Hospitalist Progress Note ---
Date of Service October 25, 2024 Assessment & Plan (1) PATTON (dyspnea on exertion): (2) COPD with emphysema: Plan Pt is a 68 yo male with a past med hx of severe emphysema/COPD hoping for transplant and previously on hospice 10 years ago, among other chronic conditions who presents to the hospital on 10/23 for shortness of breath. #Dyspnea in the setting of severe/end stage COPD - he has had several exac recently, just discharged for an exac of this last week - at this time given he has had good saturations with no or minimal oxygen at lowest at home was 86%, I do not believe he is having an acute exac of his COPD - discussed with pt medications for symptoms of air hunger such as morphine drops to help alleviate his symptoms that are common for those with end stage COPD, he is agreeable to try this, will start at 5mg dosing and increase based on response - will continue steroids for now at same dose, tomorrow recommend decrease from 40mg BID to 40mg-20mg dosing for slow wean in the hospital Chronic conditions HTN; continue home medications CAD: continue plavix and statin GERD: continue home meds 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 weeks Celiac: GF diet VTE ppx: lovenox Admission and Anticipated Discharge Date Admission Date: October 23, 2024 Supervising Physician Co-Signing Physician Notes I personally examined the patient and verified all siddiqui points of history and exam, discussed case, and agree with decision making with Dr Spence feeling a bit better, dyspnea/tightness at rest better, exertion still reasonably noticable vitals noted nad heent nc at mmm breathing tight and coarse but better air entry than yesterday COPD / exac -?all bad lungs bad virus vs mind/body stress when dropping steroids - seems more c/w bad virus/bad lungs - continue current care showing subjective and objective improvement together -d/w pt in depth -follow closely -possibly taper steroids inpatient Subjective Pt seen at bedside this morning. He states he is breathing easier today compared to yesterday and on admission but still breathing feels a bit tight. Otherwise no issues. No chest pain, no nausea or vomiting. He did not take any oral morphine yesterday as he did not know he needed to ask for it. Updated nurse on this plan and to remind him it is available for him if needed. Review of Systems Review of Systems: Per HPI. Physical Exam Physical Exam: General:Alert and oriented, no acute distress, HEENT: Normocephalic, moist oral mucosa, Cardio: Regular rate and rhythm, no murmur, Resp:Lungs with globally poor air movement and moderate wheezing noted again today not improved from yesterday Skin: Warm, pink, dry, Results & Data Results & Data Vital Signs (Past 12 Hours) Vital Signs Temp Pulse Pulse Resp BP Pulse Ox O2 Del Method 10/25/24 06:26 57 L 16 96 Room Air 10/25/24 06:11 61 129/75 95 Room Air 10/25/24 03:33 36.6 C 95 H 20 93/48 L 96 Room Air 10/25/24 00:09 36.6 C 59 L 18 127/61 96 Room Air 10/24/24 22:22 64 10/24/24 21:15 Room Air 10/24/24 19:42 82 18 95 Room Air 10/24/24 19:31 36.6 C 69 18 127/82 96 Room Air Resident Activity Tracking Resident Involvement: Resident Care Provided Care Provided: Adult Hospital Medicine
[2024-10-25 07:53] LABS: Basophils # (auto) 0.01 K/uL (0.00-0.20); Basophils % (auto) 0.1 %; Hematocrit (blood only) 35.9 % (42.0-52.0); Hemoglobin 12.5 g/dl (14.0-18.0); Immature Granulocytes # (auto) 0.15 K/uL (0.01-0.20); Immature Granulocytes % (auto) 1.7 %; Lymphocytes # (auto) 0.53 K/uL (1.20-3.40); Lymphocytes % (auto) 6.1 %; Mean Corpuscular Hemoglobin 30.4 pg (25.0-34.0); Mean Corpuscular Hgb Conc 34.8 g/dL (32.0-36.0); Mean Corpuscular Volume 87.3 fL (80.0-100.0); Mean Platelet Volume 10.1 fL (9.4-12.4); Monocytes # (auto) 0.27 K/uL (0.11-0.59); Monocytes % (auto) 3.1 %; Neutrophils # (auto) 7.71 K/uL (1.40-6.50); Platelet Count 181 K/uL (130-400); RDW Coefficient of Variation 13.2 % (11.5-14.5); RDW Standard Deviation 42.2 fL (36.4-46.3); Red Blood Count 4.11 M/uL (4.70-6.10); White Blood Count 8.67 K/ul (4.8-10.8)
[2024-10-25 08:11] LABS: Creatinine Clr Calc Pharmacy 71.7 ml/min; Potassium 4.7 mmol/L (3.5-5.1)
[2024-10-25] MEDS: MoRPHine SULFATE 10 MG/0.5 ML UDP PO PRN ×2 (08:20→13:18)
[2024-10-25] MEDS: FERROUS SULFATE 325 MG TAB PO SCH (09:03)
[2024-10-25] MEDS: guaiFENesin 600 MG TABCR PO PRN (10:49)
[2024-10-25] MEDS: BENZONATATE 100 MG CAPSULE PO PRN (10:50)
[2024-10-25] MEDS: ALBUT/IPRATROP 3MG/0.5MG NEB 3 ML VIAL NEB STA (11:04)
[2024-10-25] MEDS: MoRPHine SULFATE 10 MG/0.5 ML UDP PO ONE (11:11)
--- NOTE | 2024-10-25 17:47 | Billing Data ---
Date of Service October 25, 2024 Coding Level of Care Code 15140 SUB INP/OBS CARE MIN
[2024-10-25] MEDS: ALBUT/IPRATROP 3MG/0.5MG NEB 3 ML VIAL INH PRN (19:46)
[2024-10-26 06:31] LABS: Basophils # (auto) 0.01 K/uL (0.00-0.20); Basophils % (auto) 0.1 %; Hematocrit (blood only) 34.3 % (42.0-52.0); Hemoglobin 11.9 g/dl (14.0-18.0); Immature Granulocytes # (auto) 0.13 K/uL (0.01-0.20); Immature Granulocytes % (auto) 1.5 %; Lymphocytes # (auto) 0.58 K/uL (1.20-3.40); Lymphocytes % (auto) 6.7 %; Mean Corpuscular Hemoglobin 30.5 pg (25.0-34.0); Mean Corpuscular Hgb Conc 34.7 g/dL (32.0-36.0); Mean Corpuscular Volume 87.9 fL (80.0-100.0); Monocytes # (auto) 0.34 K/uL (0.11-0.59); Monocytes % (auto) 3.9 %; Neutrophils # (auto) 7.56 K/uL (1.40-6.50); Neutrophils % (auto) 87.8 %; Platelet Count 166 K/uL (130-400); RDW Coefficient of Variation 13.4 % (11.5-14.5); RDW Standard Deviation 42.7 fL (36.4-46.3); White Blood Count 8.62 K/ul (4.8-10.8)
[2024-10-26 06:47] LABS: BUN Creatinine Ratio 34.7 (10-20); Potassium 4.7 mmol/L (3.5-5.1)
--- NOTE | 2024-10-26 07:25 | Hospitalist Progress Note ---
Date of Service October 26, 2024 Assessment & Plan (1) PATTON (dyspnea on exertion): (2) COPD with emphysema: Plan Pt is a 68 yo male with a past med hx of severe emphysema/COPD hoping for transplant and previously on hospice 10 years ago, among other chronic conditions who presents to the hospital on 10/23 for shortness of breath. #Dyspnea in the setting of severe/end stage COPD - he has had several exac recently, just discharged for an exac of this last week - at this time given he has had good saturations with no or minimal oxygen at lowest at home was 86%, I do not believe he is having an acute exac of his COPD - Discussed with pt medications for symptoms of air hunger such as morphine drops to help alleviate his symptoms that are common for those with end stage COPD - Currently at 10mg dose, consider uptitration if symptoms not at goal - Could consider decrease from 40mg BID to 40mg-20mg dosing for slow wean in the hospital - Will continue current methylpred 40mg BID for today Chronic conditions HTN; continue home medications CAD: continue plavix and statin GERD: continue home meds 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 weeks Celiac: GF diet VTE ppx: lovenox Admission and Anticipated Discharge Date Admission Date: October 25, 2024 Supervising Physician Co-Signing Physician Notes I personally examined the patient and verified all siddiqui points of history and exam, discussed case, and agree with decision making with Dr Babcock slowly feeling better and morphine helps for a little while w the dyspnea vitals noted nad heent nc at mmm breathing tight and coarse - probably slightly less rhonchorus than yesterday although largely similar COPD / exac -most likely all bad lungs bad virus vs less likely mind/body stress when dropping steroids - - continue current care showing subjective and objective improvement together -improving slowly -probably will need a very long steroid taper after discharge Subjective Patient was seen and examined at bedside. No overnight events reported. Patient notes that he had some improvement of symptoms yesterday after taking the higher dose of morphine, however today he feels "about the same" as when he was admitted and still feels short of breath. Currently wearing 2L NC. Denies chest pain. States he is able to eat and drink without issue. Review of Systems Review of Systems: As per HPI Physical Exam Constitutional: WD/WN, vitals as above Eyes: + anicteric sclerae; no conjunctival abn ormality ENMT: Ears: no external ear abnormality Nose: no external nose abnormality Moist mucous membranes Respiratory: Wheezing throughout bilateral lungs, poor air movement Cardiovascular: Rate/Rhythm: regular rate and regular rhythm Extremities: no edema Gastrointestinal (Abdomen): Inspection/Auscultation: abdomen normal to inspection; abdomen not distended Percussion/Palpation: abdomen soft; abdomen nontender and no guarding Skin: no rashes, warm and dry Psychiatric: A+Ox3, euthymic affect Results & Data Results & Data Vital Signs (Past 12 Hours) Vital Signs Temp Pulse Pulse Resp BP Pulse Ox O2 Del Method 10/26/24 03:35 36.6 C 57 L 18 157/75 H 99 Room Air 10/25/24 23:27 36.6 C 60 16 142/75 H 93 Nasal Cannula 10/25/24 21:43 57 L 10/25/24 20:15 Room Air, Nasal Cannula 10/25/24 20:02 36.7 C 62 18 147/79 H 90 Nasal Cannula O2 Flow Rate 10/26/24 03:35 10/25/24 23:27 2 10/25/24 21:43 10/25/24 20:15 2 10/25/24 20:02 2 Resident Activity Tracking Resident Involvement: Resident Care Provided Care Provided: Adult Hospital Medicine
--- NOTE | 2024-10-26 17:09 | Billing Data ---
Date of Service October 26, 2024 Coding Level of Care Code 70969 SUB INP/OBS CARE MIN
--- NOTE | 2024-10-27 07:17 | Hospitalist Progress Note ---
Date of Service October 27, 2024 Assessment & Plan (1) PATTON (dyspnea on exertion): (2) COPD with emphysema: Plan Pt is a 68 yo male with a past med hx of severe emphysema/COPD hoping for transplant and previously on hospice 10 years ago, among other chronic conditions who presents to the hospital on 10/23 for shortness of breath. End Stage COPD Recent COPD Exacerbation - Multiple recent COPD exacerbations requiring hospitalization Patient noted to be end stage COPD, undergoing evaluation for lung transplantation in [place] - Patient remains on supplemental oxygen at 2L via NC Vitals otherwise stable and wnl - Continue home inhalers - Continue DuoNebs and Mucinex PRN - Encourage pulmonary toilet - Steroids titrated down from SoluMedrol 40 mg IV BID to 20 mg IV BID Patient likely to require slow taper due to multifactorial dyspnea/air hunger and recent exacerbations - Morphine titrated up from 10 mg Q4h PRN to 15 mg Q6h PRN for air hunger - Discussed expected clinical course with end-stage COPD and the likely changes/outcomes of above treatment, patient understanding that his symptoms are consistent with his end stage COPD and that while morphine is often used in palliative settings for end stage COPD, in this case it is being used as a bridge so that he can proceed with his evaluations for lung transplantation. 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 went to see pt twice - sleeping comfortably both times, allowed to sleep. vitals noted nad heent nc at mmm breathing unlabored at rest, appearing comfortable sleeping restfully. COPD / exac -most likely all bad lungs bad virus vs less likely mind/body stress when dropping steroids - - continue current care (slowly weaning steroids) showing subjective and objective improvement together -improving slowly -probably will need a very long steroid taper after discharge Subjective 10/27: Patient w/ no acute events overnight. Notes feeling overall improved from dyspnea perspective. States that he is noting significant benefit from the PO Morphine, but relief is not lasting long (30-40 minutes at a time). He notes optimism about his upcoming evaluation for lung transplant in [place]. He denies fevers, chills, chest pain, nausea or emesis. Review of Systems Review of Systems: As per HPI Physical Exam Physical Exam: Gen: NAD, alert, interactive HEENT: Supple, no LAD, no thyromegaly, no JVD Resp:Non-labored, restricted air movement, diffuse inspiratory and expiratory wheezing CV:RRR, normal S1/S2, no M/R/G Abd: Soft, non-distended, no TTP, normoactive bowels, no masses Extr: 2+ dp bilaterally, no edema Skin: No rashes lesions or erythema Results & Data Results & Data Vital Signs (Past 12 Hours) Vital Signs Temp Pulse Pulse Resp BP BP Pulse Ox 10/27/24 03:05 36.4 C L 56 L 16 128/66 93 10/26/24 23:30 55 L 10/26/24 22:47 36.4 C L 55 L 16 143/69 H 97 10/26/24 22:35 10/26/24 19:40 36.4 C L 56 L 18 150/79 H 95 O2 Del Method O2 Flow Rate 10/27/24 03:05 Room Air 10/26/24 23:30 10/26/24 22:47 Nasal Cannula 1 10/26/24 22:35 Nasal Cannula 2 10/26/24 19:40 Room Air Resident Activity Tracking Resident Involvement: Resident Care Provided Care Provided: Adult Hospital Medicine
[2024-10-27 07:37] LABS: Basophils # (auto) 0.02 K/uL (0.00-0.20); Basophils % (auto) 0.2 %; Hematocrit (blood only) 36.1 % (42.0-52.0); Hemoglobin 12.8 g/dl (14.0-18.0); Immature Granulocytes # (auto) 0.16 K/uL (0.01-0.20); Immature Granulocytes % (auto) 1.8 %; Lymphocytes # (auto) 0.55 K/uL (1.20-3.40); Lymphocytes % (auto) 6.2 %; Mean Corpuscular Hemoglobin 31.1 pg (25.0-34.0); Mean Corpuscular Hgb Conc 35.5 g/dL (32.0-36.0); Mean Corpuscular Volume 87.6 fL (80.0-100.0); Mean Platelet Volume 9.7 fL (9.4-12.4); Monocytes # (auto) 0.31 K/uL (0.11-0.59); Monocytes % (auto) 3.5 %; Neutrophils # (auto) 7.88 K/uL (1.40-6.50); Neutrophils % (auto) 88.3 %; Platelet Count 157 K/uL (130-400); RDW Coefficient of Variation 13.2 % (11.5-14.5); RDW Standard Deviation 41.9 fL (36.4-46.3); Red Blood Count 4.12 M/uL (4.70-6.10); White Blood Count 8.92 K/ul (4.8-10.8)
[2024-10-27 07:53] LABS: BUN Creatinine Ratio 39.3 (10-20); Calcium 8.3 mg/dl (8.6-10.3); Creatinine Clr Calc Pharmacy 82.8 ml/min; Potassium 4.6 mmol/L (3.5-5.1)
[2024-10-27] MEDS: MoRPHine SULFATE 10 MG/0.5 ML UDP PO PRN (13:14)
--- NOTE | 2024-10-27 15:15 | Billing Data ---
Date of Service October 27, 2024 Coding Level of Care Code 12802 SUB INP/OBS CARE
[2024-10-27] MEDS: methylPREDNISolone 20 MG in SYRINGE 0 ML IV SCH (20:07)
--- NOTE | 2024-10-28 10:42 | Hospitalist Progress Note ---
Date of Service October 28, 2024 Assessment & Plan (1) PATTON (dyspnea on exertion): (2) COPD with emphysema: Plan Pt is a 68 yo male with a past med hx of severe emphysema/COPD hoping for transplant and previously on hospice 10 years ago, among other chronic conditions who presents to the hospital on 10/23 for shortness of breath. End Stage COPD Recent COPD Exacerbation - Multiple recent COPD exacerbations requiring hospitalization Patient noted to be end stage COPD, undergoing evaluation for lung transplantation in [place] - Patient remains on supplemental oxygen at 2L via NC Vitals otherwise stable and wnl - Continue home inhalers - Continue DuoNebs and Mucinex PRN - Encourage pulmonary toilet - Steroid taper 10/27 Transitioned from SoluMedrol 40 mg IV BID to 20 mg IV BID 10/28 Continue titration from SoluMedrol 20 mg BID to 10 mg IV BID Patient likely to require slow taper due to multifactorial dyspnea/air hunger and recent exacerbations Significant component of anxiety a/w steroid tapering, often exacerbating sx, will requiring slow IV taper inpatient - Continue Morphine 15 mg PO Q6h PRN for air hunger - Discussed expected clinical course with end-stage COPD and the likely changes/outcomes of above treatment, patient understanding that his symptoms are consistent with his end stage COPD and that while morphine is often used in palliative settings for end stage COPD, in this case it is being used as a bridge so that he can proceed with his evaluations for lung transplantation. 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 felt worse yesterday and thought it related to steroid taper but then realized that the actual dose reduction had not occurred when he felt worse - making him realize some was probably stress rather than bronchospasm vitals noted nad heent nc at mmm breathing unlabored at rest, appearing comfortable sleeping restfully. COPD / exac -bad viral illness/end stage lung disease but also anxiety causing sensation of dyspnea that seems to be triggered when steroids reduced -improving slowly -given the stress component and that stress over dose reduction may have been at least a partial factor in readmission - would reduce steroids inpatient to reasonably low prior to dc - thereby being able to give him the reassurrance that he's being looked after (and treatment can be escalated if need be) to help prevent anxiety creating a sensation of dyspnea potentially leading to needless steroids (ie if he's SOB due to lungs steroids may help, but anxiety causing dyspnea would feel more or less the same - could easily lead to escalation of steroids again - which may be both unnecessary (if it's not lung related dyspnea) and harmful (since higher dosing steroids can set up for future pneumonia and also provoke anxiety worsening) -currently on morphine prn dyspnea as well - we've been discussing that he's in a unique position having end stage lung disease but still potentially being a transplant candidate - and that morphine prn dyspnea is esssentially a palliative measure - but can serve a role if he's dyspnea but stable (ie if he is suffering from air hunger but does not appear that he'd benefit from extra nebs/higher dosing of steroids) otherwise as above Subjective 3/2: Continues to note overall improvement in comfort. Believes increased dose of Morphine has been helpful. Did have episode last evening of dyspnea when ambulating from the bathroom, steroids had not yet been down-titrated at this time, and increased dose of Morphine resolved symptoms. Patient interested in staying inpatient for ongoing steroid taper. He denies fevers, chills, chest pain, nausea or emesis. Review of Systems Review of Systems: As per HPI Physical Exam Physical Exam: Gen: NAD, alert, interactive HEENT: Supple, no LAD, no thyromegaly, no JVD Resp:Non-labored, restricted air movement, diffuse inspiratory and expiratory wheezing CV:RRR, normal S1/S2, no M/R/G Abd: Soft, non-distended, no TTP, normoactive bowels, no masses Extr: 2+ dp bilaterally, no edema Skin: No rashes lesions or erythema Results & Data Results & Data Vital Signs (Past 12 Hours) Vital Signs Temp Pulse Pulse Resp BP Pulse Ox O2 Del Method 10/28/24 07:55 36.6 C 55 L 18 138/76 94 Room Air 10/28/24 05:56 56 L 18 98 Nasal Cannula 10/28/24 05:45 56 L 10/28/24 03:04 36.4 C L 59 L 16 126/70 93 Room Air 10/28/24 00:05 56 L 10/27/24 22:45 36.4 C L 55 L 16 125/65 93 Room Air O2 Flow Rate 10/28/24 07:55 10/28/24 05:56 4 10/28/24 05:45 10/28/24 03:04 10/28/24 00:05 10/27/24 22:45 Resident Activity Tracking Resident Involvement: Resident Care Provided Care Provided: Adult Hospital Medicine
--- NOTE | 2024-10-28 16:40 | Billing Data ---
Date of Service October 28, 2024 Coding Level of Care Code 91903 SUB INP/OBS CARE
[2024-10-28] MEDS: ACETAMINOPHEN 500 MG TAB PO STA (17:19)
[2024-10-28] MEDS: methylPREDNISolone 10 MG in SYRINGE 0 ML IV SCH (20:07)
[2024-10-29] MEDS: MoRPHine SULFATE 10 MG/0.5 ML UDP PO PRN (10:57)
[2024-10-29 11:19] VITALS: RESP 18; TEMP 98.2
[2024-10-29 11:53] VITALS: BP 148/75
[2024-10-29 11:58] VITALS: PULSE 60; O2SAT 93
--- NOTE | 2024-10-29 12:50 | Discharge Summary ---
Discharge Summary Date of Service October 29, 2024 Principal Dx & Hospital Course #1 = Principal Diagnosis (1) PATTON (dyspnea on exertion): (2) COPD with emphysema: Plan Pt is a 68 yo male with a past med hx of severe emphysema/COPD hoping for transplant and previously on hospice 10 years ago, among other chronic conditions who presents to the hospital on 10/23 for shortness of breath. During hospital admission patient had his steroids weaned down to a total daily dose of 20 mg. At this dose he felt his breathing was good and at his baseline, but continued to have intermittent dyspnea greatly improved with low-dose morphine. During admission low-dose morphine entero-/benefits was discussed with the patient. Explicitly noted that this is usually used in palliative care for end-stage COPD, his stage is an unusual 1 where with maximal control of his medical therapy he still has some residual dyspnea but is not palliative as he is still proceeding/pursuing lung transplantation. Discussed risks of this including comfort but reduced breathing which can lead to hypercapnia and . Clinically was trialed on morphine 15 mg every 6 hours with significant clinical improvement although some dyspnea at around the 4-hour khadra. Was converted to the same total daily dose as morphine 10 mg p.o. every 4 hours as needed.He had good clinical response to this and no evidence of sedation. He was discharged to continue 5-10 mg of morphine p.o. every 4 hours as needed for dyspnea. Strict return precautions including worsening dyspnea, hypoxia, wheezing, fever, chills were discussed which she was agreeable. Day of discharge he reported that he did feel well and at his normal baseline. Two-step did show some desaturation at the very end of the study and patient was recommended to continue oxygen as needed at home to maintain O2 sat greater than 88%. Requalified for oxygen, was reviewed with case management. At baseline examination he had trace wheezing in the bases and moderate to good air movement. Patient did request to return home on 10/29. Discussed/benefits of ongoing monitoring including further adjustments of steroids. On shared decision making he reports he does feel that he is back to his normal baseline which is end- stage COPD. 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 He was ambulating independently and was recommended for return home. Admission HPI Per Admitting Provider This is a 68-year-old male who was recently admitted and discharged for acute e xacerbation of COPD. He remains on prednisone 30 mg daily. He comes in today with ongoing shortness of breath and air hunger. He is 95% on room air. Breathing 18 breaths/min. Course in the ER he had an hour-long nebulizer. Received 60 mg of IV Solu- Medrol. A stat CTA of the chest was ordered and we were called admit the patient for further evaluation and treatment as attempt was made for discharge home with the patient does not feel he is ready to go home and still feels air hunger.. He is coughing but it is very little production very scant sputum he states. Will going to repeat a [employer]. Await for the CTA results. Will continue IV steroids and nebulizers for COPD exacerbation. Discharge Exam General: A&Ox3. NAD. Cooperative. HEENT: Atraumatic, normocephalic. Vision/hearing grossly intact Pulm: Moderate to good air movement. Trace end expiratory wheezing with forced experiation. Symmetrical chest rise. No increased work of breathing. No respiratory distress. Cardiac: RRR, -mrg. Radial pulses intact and symmetrical. Abdominal: Nontender, nondistended, soft. BS present. Discharge Plan Discharge Items Patient Disposition: Home - Home Health Services Reason For Visit: COPD EXACERBATION Discharge Diagnosis: Acute on Chronic COPD Condition on Discharge: Fair Activity: Resume your previous activity Non-emergency contact: Primary Care Provider and Specialist Call non-emergency contact if: you have any medication questions, your symptoms worsen and your pain is not controlled Follow-up/Referrals: Fanny Clark PA-C [Primary Care Provider] - Diet: Regular Addtl Attending Provider Instructions: You were seen in the hospital for a COPD exacerbation and dyspnea. You return to your normal baseline breathing day of discharge, and wish for return home. A two-step test did show some oxygen desaturation towards the end of exertion, he felt this was similar to your normal baseline and noted that you have used oxygen at home. Home oxygen was requalified based on the study. During admission the risk/benefits of morphine were discussed. It was especially discussed with you that this is a medication typically used as part of palliative/hospice care for dyspnea and does have a risk of suppressed breathing leading to hypercapnia with disability or . Typically this medication is used as it is very effective at eliminating the feeling of shortness of breath. In your case while you are not on hospice/palliative care a low-dose of morphine was felt to be reasonable despite the risks as even at your most optimized to continue to have some dyspnea greatly improved by this and are pending a lung transplant. You may continue to use morphine 5 to 10 mg up to every 4 hours as needed for dyspnea/air hunger. If you have worsening dyspnea or breathing please seek immediate medical retention. If you have any lightheadedness/patient/confusion please stop this medication and seek medical attention. You have been prescribed a steroid taper. Please take prednisone 20 mg for 4 days, then 15 mg daily for 4 days, then resume your normal home dose of prednisone 10 mg. If you develop any new or worsening symptoms including fever, chills, sweats, chest pain, chest pressure, difficulty breathing, uncontrolled nausea/vomiting, rash, wheezing, passing out or nearly passing out, bleeding, black/bloody bowel movements, or other new or concerning symptoms please call your primary care physician, or call 911 for re-evaluation in the emergency department if you are very concerned. Pending Studies at Discharge: No Stand-Alone Forms: My [facility] [employer], Smoking Cessation Medications and DC Order Prescriptions: New morphine 10 mg/5 mL solution 5 - 10 mg PO Q4H PRN (Reason: air hunger) Qty: 100 0RF prednisone 10 mg tablet See Rx Instructions PO .COMPLEX Qty: 30 0RF Rx Instructions: Take 20mg daily x4 days, then 15mg daily x4 days, then 10mg daily Continued ketotifen fumarate 0.025 % (0.035 %) drops 1 drp ophthalmic (eye) BID PRN (Reason: Eye Irritation) Rx Instructions: administer at least 8 hours apart (DME) Discontinue DME Misc See Rx Instructions .MEDSUPPLY Qty: 1 0RF Rx Instructions: Discontinue oxygen roflumilast 500 mcg tablet 500 mcg PO DAILY Qty: 30 2RF azithromycin 500 mg tablet 500 mg PO .COMPLEX Qty: 36 2RF Rx Instructions: 500 mg orally Qgcept-Nqmybleke-Omdkzo; albuterol sulfate 90 mcg/actuation HFA aerosol inhaler 2 puff INHALATION Q6H PRN (Reason: Shortness Of Breath) Qty: 8.5 3RF teriparatide 20 mcg/dose (620mcg/2.48mL) pen injector 20 mcg subcut QAM calcium carb,vfs-T1-vllwioxjgv 315-250-200 mg-unit-mg tablet 1 tab PO BID cholecalciferol (vitamin D3) 25 mcg (1,000 unit) tablet 50 mcg PO QAM famotidine 20 mg tablet 20 mg PO QAM pantoprazole 40 mg tablet,delayed release (DR/EC) 40 mg PO QAM atorvastatin 80 mg Tablet 80 mg PO QAM ferrous sulfate 325 mg (65 mg iron) tablet 325 mg PO Q OTHER DAY clopidogrel [Plavix] 75 mg Tablet 75 mg PO QAM Hold Instructions: HOLDING for IR intervention of diverticular abscess ketoconazole 2 % Shampoo 1 applic TOPICAL Q OTHER DAY Ensure Liquid 1 ea PO QAM olanzapine 10 mg Tablet 10 mg PO HS Qty: 30 0RF divalproex 250 mg Tablet Extended Release 24 Hr 250 mg PO BID Qty: 60 0RF clobetasol 0.05 % Cream 1 applic TOPICAL DAILY PRN (Reason: Rash) folic acid 1 mg Tablet 1 mg PO DAILY ezetimibe [Zetia] 10 mg Tablet 10 mg PO HS rivastigmine 4.6 mg/24 hour Patch 24 Hour 1 patch TRANSDERMAL DAILY carvedilol 25 mg Tablet 12.5 mg PO BID Rx Instructions: must administer with a meal/food acetaminophen 325 mg Tablet 325 mg PO DAILY PRN (Reason: INFUSION) amlodipine 10 mg Tablet 5 mg PO DAILY Rx Instructions: TAKE 1/2 TABLET (5MG) ONCE A DAY FOR HTN diphenhydramine HCl 25 mg Capsule 25 mg PO DAILY PRN (Reason: INFUSION ) Rx Instructions: TAKE BY MOUTH ONCE 30 MIN PRIOR TO INFUSION ondansetron 4 mg tablet,disintegrating 4 mg PO DIRECTED PRN (Reason: INFUSION) Rx Instructions: TAKE ONE BY MOUTH 30 MINUTES PRIOR TO INFUSION IF NEEDED guaifenesin 600 mg Tablet Extended Release 12hr 600 mg PO Q12H PRN (Reason: Congestion) immune globul G-gly-IgA avg 46 40 gram/400 mL (10 %) Solution 400 ml IV DIRECTED Rx Instructions: LAST DOSE COMPLETED 10/10/24 NO FREQUENCY LISTED tiotropium bromide [Spiriva with HandiHaler] 18 mcg capsule, w/inhalation device 2 cap INHALATION DAILY Discontinued prednisone 20 mg Tablet 20 mg PO DIRECTED Rx Instructions: TAKE ONE HALF TABLET EVERY DAY prednisone 5 mg Tablet 5 mg PO DIRECTED Rx Instructions: see taper instructions TAKE 4 TABLETS FOR 3 DAYS THEN 3 TABLETS FOR 3 DAYS, THEN TAKE 2 TABLETS FOR 3 DAYS, THEN ONE TABLET FOR 3 DAYS THEN STOP. 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 TO INFUSION Discharge Orders: Discharge Order (Routine); Ordered 10/29/24 Ordered By: Goldy Shabazz Admission Data Admit Date/Time: 10/25/24 10:56 Attending Provider: Goldy Shabazz Admit Provider: Enoch Barraza Primary Care Provider: Fanny Clark Other Providers: Enoch Barraza; [facility] Other Interventions: Discharge Summary Assessment (RN) Last Done: 10/29/24 11:52 Hospital Stay Data Consultations 10/23/24 18:29 ED Decision to Admit Stat Diagnostic Imagining Performed 10/23/24 18:14 CT angio chest PE protocol Stat Discharge Instructions Given to Patient (Per Discharging Provider) You were seen in the hospital for a COPD exacerbation and dyspnea. You return to your normal baseline breathing day of discharge, and wish for return home. A two-step test did show some oxygen desaturation towards the end of exertion, he felt this was similar to your normal baseline and noted that you have used oxygen at home. Home oxygen was requalified based on the study. During admission the risk/benefits of morphine were discussed. It was especially discussed with you that this is a medication typically used as part of palliative/hospice care for dyspnea and does have a risk of suppressed breathing leading to hypercapnia with disability or . Typically this medication is used as it is very effective at eliminating the feeling of shortness of breath. In your case while you are not on hospice/palliative care a low-dose of morphine was felt to be reasonable despite the risks as even at your most optimized to continue to have some dyspnea greatly improved by this and are pending a lung transplant. You may continue to use morphine 5 to 10 mg up to every 4 hours as needed for dyspnea/air hunger. If you have worsening dyspnea or breathing please seek immediate medical retention. If you have any lightheadedness/patient/confusion please stop this medication and seek medical attention. You have been prescribed a steroid taper. Please take prednisone 20 mg for 4 days, then 15 mg daily for 4 days, then resume your normal home dose of prednisone 10 mg. If you develop any new or worsening symptoms including fever, chills, sweats, chest pain, chest pressure, difficulty breathing, uncontrolled nausea/vomiting, rash, wheezing, passing out or nearly passing out, bleeding, black/bloody bowel movements, or other new or concerning symptoms please call your primary care physician, or call 911 for re-evaluation in the emergency department if you are very concerned. Total Time Total Time Spent Total Time Spent (In Minutes): Time spend day of discharge 45 minutes including direct patient care, documentation, review of labs and images, and coordination of care. Coding Level of Care Code 19606 INP/OBS DISCH >30 MIN Diagnoses PATTON (dyspnea on exertion) R06.09 COPD with emphysema J43.9
[2024-10-29] MEDS: predniSONE 20 MG TAB PO STA (13:25)
== END 2024-10-29 13:58 | disposition home health service (06) | DRG 192 ==
LOC: ED 11:58 → EDINP 11:58 → SUATTDRO 18:31 → 2N 21:24 → SUATTDRO 10-25 10:56 → 2N 10-25 17:09

== ENCOUNTER 2025-04-04 00:02 | Inpatient (IN) ==
[2025-04-04] MEDS: MAGNESIUM SULFATE / D5W 1 GM/100 ML BAG IV STA ×3 (00:17→01:04)
[2025-04-04] MEDS: KETAMINE HCL 10MG/ML SYR IV STA (00:18)
[2025-04-04] MEDS: ALBUTEROL 0.5% NEB SOLN 2.5 MG/0.5 ML VIAL NEB STA (00:32)
[2025-04-04] MEDS: SODIUM CHLORIDE 0.9% 1,000 ML IV SCH (00:32)
[2025-04-04 00:43] LABS: Base Excess VBG 4.0 mEq/L; HCO3 VBG 32 mmol/L; Oxygen Saturation VBG 88.8 %; PCO2 VBG 62 mmHg (38-50); PO2 VBG 61 mmHg; pH VBG 7.32 (7.36-7.41)
[2025-04-04 00:49] LABS: Hematocrit (blood only) 44.3 % (42.0-52.0); Hemoglobin 15.0 g/dl (14.0-18.0); Immature Granulocytes # (auto) 0.07 K/uL (0.01-0.20); Immature Granulocytes % (auto) 0.5 %; Mean Corpuscular Hemoglobin 28.2 pg (25.0-34.0); Mean Corpuscular Volume 83.3 fL (80.0-100.0); Platelet Count 245 K/uL (130-400); RDW Standard Deviation 39.5 fL (36.4-46.3); Red Blood Count 5.32 M/uL (4.70-6.10); White Blood Count 15.38 K/ul (4.8-10.8)
[2025-04-04] MEDS: MIDAZOLAM HCL 1 MG/ML 2ML VIAL IV STA (01:02)
[2025-04-04 01:04] LABS: Alanine Aminotransferase 23.0 U/L (7-52); Albumin Globulin Ratio 1.2 (0.9-2); Alkaline Phosphatase 96.0 U/L (34-104); Anion Gap 11.0 (3-11); Bilirubin,Total 0.5 mg/dl (0.2-1.0); Blood Urea Nitrogen 22.0 mg/dl (6-23); Calcium 9.9 mg/dl (8.6-10.3); Carbon Dioxide 29.0 mmol/L (21-32); Chloride 98.0 mmol/L (98-107); Creatinine Clr Calc Pharmacy 71.1 ml/min; Globulin 3.8 gm/dl (2.5-4.0); Glucose 134.0 mg/dl (70-99(Fasting)); Potassium 4.7 mmol/L (3.5-5.1); Sodium 138.0 mmol/L (136-145); Total Protein 8.3 gm/dl (6.0-8.3)
[2025-04-04] MEDS: ALBUT/IPRATROP 3MG/0.5MG NEB 3 ML VIAL NEB ONE (01:04)
[2025-04-04] MEDS: ONDANSETRON INJ 2 MG/ML 2 ML VIAL ONE (01:04)
--- NOTE | 2025-04-04 01:19 | XRay Report ---
EXAM: XR chest 1V portable CLINICAL HISTORY: Dyspnea. TECHNIQUE: Two complementary X-ray images of the chest are obtained in AP projection. COMPARISON: prior CT of the chest on 03/15/2025. FINDINGS: Pulmonary Parenchyma: The apices of both lungs are not assessed in the current study (out of the examination field). Mild hyperinflation of both lungs, matching with mild diffuse emphysematous changes (stable). The tiny lung nodules described in the previous CT cannot be assessed on an X-ray basis. Mild interstitial thickening is noted at both lower lung zones, matching the previously described basal fibroatelectatic changes. However, there are ill-defined airspace opacities at the right lower lung lobe, raising the possibility of an infective process. No evidence of pleural effusion or pleural thickening. Heart and Mediastinum: Heart size and shape are normal, with prominent pericardial fat. No mediastinal widening or masses. No hilar or mediastinal lymphadenopathy. Bony Thorax: Sternotomy sutures are seen (unchanged). The right shoulder joint prosthesis is partially visualized. Soft Tissues: Soft tissues overlying the chest wall are unremarkable. IMPRESSION: - Mild hyperinflation of both lungs, matching with mild diffuse emphysematous changes (stable). - Mild interstitial thickening is noted at both lower lung zones, matching the previously described basal fibroatelectatic changes. - However, there are subtle, ill-defined airspace opacities at the right lower lung lobe, raising the possibility of an infective process. - The tiny lung nodules described in the previous CT cannot be assessed on an X-ray basis. Electronically signed by Bandar De La Fuente 04-04-2025 01:19 AM
[2025-04-04] MEDS: RAPID SEQUENCE INDUCTION BAG ONE (01:48)
--- NOTE | 2025-04-04 02:12 | History & Physical Report ---
Date of Service April 04, 2025 Assessment & Plan (1) COPD exacerbation: (2) BPH (benign prostatic hyperplasia): (3) GERD (gastroesophageal reflux disease): (4) Hypertension: (5) Hyperlipidemia: (6) Bipolar disorder, unspecified: Plan 69yo male with chronic hypoxic respiratory failure, COPD with chronic bronchitis presenting with actue exacerbation of COPD. Patient follows with [facility]monary [facility] as well as [facility] and is being considered for transplant. He reports 2 weeks of progressive dyspnea. Presented this evening in respiratory distress, acute hypoxic respiratory failure requiring BiPAP #COPD exacerbation -Admit to PCU -Continue BiPAP, wean as tolerated -Goal saturation 88-92 -DuoNeb q 4 hours scheduled -Albuterol q 2 hours PRN -Continue Fluticasone/Vilanterol -Hypertonic nebs BID -Guaifenesin 1200mg po BID -Solumedrol 40mg IV BID -Azithromycin and Ceftriaxone -Check Procalcitonin -Continue Roflumilast #Hypertension -Continue Amlodipine 5mg po daily -Continue Carvedilol 12.5mg po BID -Monitor #Hyperlipidemia -Continue Atorvastatin -Continue Zetia #Bipolar/Mental health - stable -Continue Depakote -Continue Olanzapine 5mg po qHS #GERD -Continue Famotidine -Continue Protonix 40mg po daily #Adrenal insufficiency - patient on Hydrocortisone 15mg po qAM and 5mg po daily at 14:00 -Will hold hydrocortisone while patient is on Solumedrol History of Present Illness Chief Complaint: shortness of breath Primary Care Provider: Fanny Clark PA-C Wild Thompson is a pleasant 69yo male with history of COPD with emphysema and chronic bronchitis - Gold Class E presently following with [facility] - Dr. Palm as well as [facility] for possible transplant presenting with progressive shortness of breath. Patient has chronic cough and SOB at baseline - reports progressive decline over the last 2 weeks with increased chest tightness and SOB. Has some chills today. He denies fever, purulent sputum. Denies chest pain, palpitations, edema or orthopnea. Patient reports that his present symptoms feel similar to prior episodes of COPD exacerbation but worse than prior No sick contacts or recent travel Upon arrival to the ER patient in respiratory distress, tachypneic with RR in the 40's, hypoxic at 89%. He was trialed on CPAP by EMS but was quite agitated and had difficulty maintaining the mask. In the ER he was given some light sedation with Ketamine and Versed - BiPAP placed and patient able to be tolerated. During my encounter patient with BiPAP in place, appears comfortable. Still with some mild tachypnea and conversational dyspnea. Overall imrpoved ER Course: Magnesium x 2gm Solumedrol 60mg IV + 40mg IV Ketamine 20mg IV Albuterol 2.5mg neb + 12mL neb NSS x 1L Allergies Allergy/AdvReac Type Severity Reaction Status Date / Time gluten Allergy Severe celiac Verified 04/04/25 02:48 disease wheat Allergy Severe celiac Verified 04/04/25 02:48 disease NSAIDS (Non-Steroidal Allergy Intermediate Hives Verified 04/04/25 02:48 Anti-Inflamma aspirin Allergy Mild RASH,HIVES Verified 04/04/25 02:48 lisinopril Allergy Mild Hives Verified 04/04/25 02:48 naproxen [From Naprosyn] Allergy Mild Hives Verified 04/04/25 02:48 memantine Allergy Unknown Verified 04/04/25 02:48 Home Medications Medication Instructions Recorded Confirmed Type atorvastatin 80 mg tablet 80 mg PO QAM 01/16/19 04/04/25 History ferrous sulfate 325 mg (65 mg 325 mg PO Q OTHER DAY 12/11/20 04/04/25 History iron) tablet clopidogrel 75 mg tablet (Plavix) 75 mg PO QAM 04/08/22 04/04/25 History ezetimibe 10 mg tablet (Zetia) 10 mg PO HS 11/14/23 04/04/25 History folic acid 1 mg tablet 1 mg PO DAILY 11/14/23 04/04/25 History calcium 315 mg-vitamin D3 250 1 tab PO BID 02/28/24 04/04/25 History unit-phytosterols 200 mg tablet cholecalciferol (vitamin D3) 25 50 mcg PO QAM 02/28/24 04/04/25 History mcg (1,000 unit) tablet famotidine 20 mg tablet 20 mg PO QAM 02/28/24 04/04/25 History pantoprazole 40 mg tablet,delayed 40 mg PO QAM 02/28/24 04/04/25 History release divalproex 250 mg tablet,extended 250 mg PO BID #60 tabs 04/08/24 04/04/25 Rx release 24 hr acetaminophen 325 mg tablet 325 mg PO DAILY PRN INFUSION 10/23/24 04/04/25 History amlodipine 10 mg tablet 5 mg PO DAILY 10/23/24 04/04/25 History carvedilol 25 mg tablet 12.5 mg PO BID 10/23/24 04/04/25 History guaifenesin 600 mg tablet, 600 mg PO Q12H PRN Congestion 10/23/24 04/04/25 History extended release 12 hr Oxygen Home #1 ea 11/05/24 11/13/24 Rx Portable Oxygen #1 ea 11/05/24 11/13/24 Rx albuterol sulfate 90 mcg/actuation 2 puff inhalation Q6H PRN 11/12/24 04/04/25 Rx aerosol inhaler Shortness Of Breath #8.5 grams roflumilast 500 mcg tablet 500 mcg PO DAILY #30 tabs 11/12/24 04/04/25 Rx tiotropium bromide 18 mcg capsule 2 cap inhalation DAILY #90 11/12/24 04/04/25 Rx with inhalation device (Spiriva inhalations with HandiHaler) albuterol sulfate 2.5 mg/0.5 mL 5 mg inhalation Q6H Shortness Of 04/04/25 04/04/25 History solution for nebulization Breath Or Wheezing azithromycin 500 mg tablet 500 mg PO .3XW/UD 04/04/25 04/04/25 History hydrocortisone 5 mg tablet 5 mg PO .DAILY @2PM 04/04/25 04/04/25 History hydrocortisone 5 mg tablet 5 mg PO .UD 04/04/25 04/04/25 History olanzapine 10 mg tablet 5 mg PO HS 04/04/25 04/04/25 History tamsulosin 0.4 mg capsule 0.4 mg PO HS 04/04/25 04/04/25 History teriparatide 20 mcg/dose (560 20 mcg subcut QAM 04/04/25 04/04/25 History mcg/2.24 mL) subcutaneous pen injector (Forteo) Past Med/Surg History Problem List Failure of outpatient treatment (Acute) PATTON (dyspnea on exertion) (Acute) COPD exacerbation (Acute) SOB (shortness of breath) (Acute) Acute exacerbation of chronic obstructive pulmonary disease (Acute) Ex-smoker Chronic bronchitis 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 at [facility] [place] Colonic diverticular abscess Nausea and vomiting Change in bowel habits Domestic problems (Acute) Anxiety (Acute) Osteoporosis History of colon polyps Gastritis Elevated troponin (Acute) Acute hypokalemia (Acute) Intractable nausea and vomiting (Acute) S/P trigger finger release Dementia stage 3 Trigger finger, right ring finger Trigger thumb of right hand AMS (altered mental status) Encounter for pre-operative examination COVID (Acute) Other instability, left elbow Rotator cuff tear, left Celiac disease Encounter for pre-operative examination Abnormal EKG (Acute) Hypercalcemia (Acute) Vomiting (Acute) Acute duodenitis (Acute) COPD with acute exacerbation (Acute) Restless leg Anemia (Acute) Chronic pain PATTON (dyspnea on exertion) Status post reverse arthroplasty of right shoulder (~04/2020) BPH (benign prostatic hyperplasia) GERD (gastroesophageal reflux disease) Well controlled and stable Hypertension Hyperlipidemia Hx of venous thrombosis and embolism (Acute) Bipolar disorder, unspecified (Acute) Weight loss Pulmonary nodule Hemostasis disorder (Acute) COPD (chronic obstructive pulmonary disease) (Acute) COPD (chronic obstructive pulmonary disease) (Chronic) Heart disease (Chronic) Severe recurrent major depression without psychotic features (Acute 04/19/11) Acute exacerbation of chronic obstructive airways disease (Acute 02/07/11) Generalized anxiety disorder (Chronic 03/31/11) Medical History Diverticulitis large intestine Transaminitis Perforation of sigmoid colon due to diverticulitis Acute exacerbation of chronic obstructive pulmonary disease Hx of deep venous thrombosis (2018) rightT ARM 2019 (TREATED WITH ELIQUIS)- on AC x 6 months- then d/c'ed- no iss ues since. Did follow with heme- no known clotting issues - felt secondary to A-port- A port removed. Bipolar affective disorder in remission RBBB (right bundle branch block with left anterior fascicular block) CAD (coronary artery disease) COPD (chronic obstructive pulmonary disease) Pulmonary nodule 1 cm or greater in diameter Restless leg RBBB (right bundle branch block with left anterior fascicular block) Heart disease GERD (gastroesophageal reflux disease) PATTON (dyspnea on exertion) CAD (coronary artery disease) Hx of colonic polyps Dementia per chart, pt. was able to complete PAT interview with ease Osteoporosis Bipolar affective disorder in remission Hx pulmonary embolism (2009) Manic episode (03/2024) reports manic depressive at beginning of march, resolved Insomnia On anticoagulant therapy plavix daily Hx of non-ST elevation myocardial infarction (NSTEMI) (2019) "debateable" History of COVID-19 (2021) diagnosed 02/04/22 via home test only--cough, fatigue, muscle aches, runny nose--no symptoms now Celiac disease On home oxygen therapy 2L prn PVD (peripheral vascular disease) S/p angioplasties. On Plavix- cannot tolerate ASA Anxiety and depression Hearing deficit b/l perez's Aortic valve defect Had AVR secondary to AR per patient "HAS MINIMAL LEAKING FROM PROSTHETIC COW AORTIC VALVE" Lung nodules Following with pulm Sleep apnea cpap with 2L at hs Chronic obstructive pulmonary disease stage 4 COPD, on prednisone maintenance program, currently going thru eval for lung transplant list Asthma Well controlled - inhalers daily and prn--nebulizer prn Surgical History Hx of colonoscopy with polypectomy Status post trigger finger release 05/2023 @ [facility] [place]--right thumb/ring finger History of transesophageal echocardiography (MELISSA) (~08/16/19) History of cardiac cath (~05/15/19) @ [facility] with Dr. Ji, no stents, no UT, History of vascular access device infuasport placed and removed in past for IGG History of umbilical hernia repair History of right inguinal hernia repair History of cholecystectomy History of esophagogastroduodenoscopy (EGD) History of phacoemulsification of cataract of both eyes with intraocular lens implantation History of angioplasty LEs and hand History of aortic valve replacement (2009) 2009 @ [facility] -follows with Dr. 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 Beliefs That Will Affect Care: None marital status: Current Living Situation: Spouse Current Living Situation Comment: Lives with and son Feels Safe at Home: Yes Gender Identity: Male Assistive Devices: Cane and Oxygen - Continuous Review of Systems Review of Systems: All systems reviewed & are unremarkable except as noted in HPI & below Physical Exam Physical Exam: General: resting comfortably, BiPAP in place 08/03 40% FiO2 Skin: warm, dry, intact, no rashes or lesions HEENT: NC/AT, PERRL, EOMI, anicteric sclera, conjunctiva without injection, external ear normal to inspection and nontender, nares patent, moist mucus membranes, dentition intact, no oropharyngeal lesions, neck supple, trachea midline, no LAD, no thyromegaly, no JVD Heart: +S1/S2, regular, tahycardic, no m/r/g Lungs: equal air entry bilaterally, diffuse wheezing, no rhonchi Abd: +BS, soft, NT/ND, no masses/organomegaly/ascites Ext: warm, 2+ pulses in UE/LE bilaterally, no clubbing/cyanosis or edema Neuro: nonfocal, patient AA&O x 4, speech intact, no facial droop, moving all extremities on command with equal strength 5/5 Results & Data Results & Data Vital Signs (Past 12 Hours) Vital Signs Temp Pulse Pulse Resp BP BP Pulse Ox 04/04/25 02:02 125 H 33 H 95 04/04/25 02:00 97 H 20 134/85 96 04/04/25 01:34 101 H 20 142/76 H 99 04/04/25 01:23 111 H 22 152/87 H 96 04/04/25 00:41 89 L 04/04/25 00:34 134 H 30 H 141/117 H 94 04/04/25 00:12 128 H 04/04/25 00:07 135 H 34 H 95 04/03/25 23:58 36.5 C 128 H 36 H 137/92 89 L O2 Del Method O2 Flow Rate FiO2 04/04/25 02:02 40 04/04/25 02:00 BiPAP 40 04/04/25 01:34 BiPAP 40 04/04/25 01:23 BiPAP 40 04/04/25 00:41 Nasal Cannula, BiPAP 6 04/04/25 00:34 BiPAP 100 04/04/25 00:12 04/04/25 00:07 BiPAP 04/03/25 23:58 Nasal Cannula 6 Laboratory Results Laboratory Results WBC 15.38 K/ul (4.8-10.8) H 04/04/25 00:16 RBC 5.32 M/uL (4.70-6.10) 04/04/25 00:16 Hgb 15.0 g/dl (14.0-18.0) 04/04/25 00:16 Hct 44.3 % (42.0-52.0) 04/04/25 00:16 MCV 83.3 fL (80.0-100.0) 04/04/25 00:16 MCH 28.2 pg (25.0-34.0) 04/04/25 00:16 MCHC 33.9 g/dL (32.0-36.0) 04/04/25 00:16 RDW Std Deviation 39.5 fL (36.4-46.3) 04/04/25 00:16 RDW Coeff of Rosario 13.1 % (11.5-14.5) 04/04/25 00:16 Plt Count 245 K/uL (130-400) 04/04/25 00:16 MPV 9.5 fL (9.4-12.4) 04/04/25 00:16 Immature Gran % (Auto) 0.5 % 04/04/25 00:16 Neut % (Auto) 81.1 % 04/04/25 00:16 Lymph % (Auto) 11.2 % 04/04/25 00:16 Stoddard % (Auto) 6.7 % 04/04/25 00:16 Eos % (Auto) 0.1 % 04/04/25 00:16 Baso % (Auto) 0.4 % 04/04/25 00:16 Neut # (Auto) 12.49 K/uL (1.40-6.50) H 04/04/25 00:16 Lymph # (Auto) 1.72 K/uL (1.20-3.40) 04/04/25 00:16 Stoddard # (Auto) 1.03 K/uL (0.11-0.59) H 04/04/25 00:16 Eos # (Auto) 0.01 K/uL (0.00-0.50) 04/04/25 00:16 Baso # (Auto) 0.06 K/uL (0.00-0.20) 04/04/25 00:16 Immature Gran # (Auto) 0.07 K/uL (0.01-0.20) 04/04/25 00:16 VBG pH 7.32 (7.36-7.41) L 04/04/25 00:16 VBG pCO2 62 mmHg (38-50) H 04/04/25 00:16 VBG pO2 61 mmHg 04/04/25 00:16 VBG HCO3 32 mmol/L 04/04/25 00:16 VBG O2 Saturation 88.8 % 04/04/25 00:16 VBG Base Excess 4.0 mEq/L 04/04/25 00:16 Sodium 138 mmol/L (136-145) 04/04/25 00:16 Potassium 4.7 mmol/L (3.5-5.1) 04/04/25 00:16 Chloride 98 mmol/L (98-107) 04/04/25 00:16 Carbon Dioxide 29 mmol/L (21-32) 04/04/25 00:16 Anion Gap 11 (3-11) 04/04/25 00:16 BUN 22 mg/dl (6-23) 04/04/25 00:16 Creatinine 1.02 mg/dl (0.6-1.4) 04/04/25 00:16 Est Cr Clr Drug Dosing 71.1 ml/min 04/04/25 00:16 eGFR 79.07 04/04/25 00:16 BUN/Creatinine Ratio 21.6 (10-20) H 04/04/25 00:16 Glucose 134 mg/dl (70-99(Fasting)) H 04/04/25 00:16 Calcium 9.9 mg/dl (8.6-10.3) 04/04/25 00:16 Total Bilirubin 0.5 mg/dl (0.2-1.0) 04/04/25 00:16 AST 25 U/L (13-39) 04/04/25 00:16 ALT 23 U/L (7-52) 04/04/25 00:16 Alkaline Phosphatase 96 U/L (34-104) 04/04/25 00:16 B-Natriuretic Peptide 75 pg/ml (0-100) 04/04/25 00:16 Total Protein 8.3 gm/dl (6.0-8.3) 04/04/25 00:16 Albumin 4.5 gm/dl (3.4-5.0) 04/04/25 00:16 Globulin 3.8 gm/dl (2.5-4.0) 04/04/25 00:16 Albumin/Globulin Ratio 1.2 (0.9-2) 04/04/25 00:16 Adenovirus (PCR) Not Detected (NotDetected) 04/04/25 01:21 B. pertussis DNA (PCR) Not Detected (NotDetected) 04/04/25 01:21 B.parapertussis DNA PCR Not Detected (NotDetected) 04/04/25 01:21 C. pneumoniae DNA (PCR) Not Detected (NotDetected) 04/04/25 01:21 Coronavirus OC43 (PCR) Not Detected (NotDetected) 04/04/25 01:21 Coronavirus HKU1 (PCR) Not Detected (NotDetected) 04/04/25 01:21 Coronavirus 229E (PCR) Not Detected (NotDetected) 04/04/25 01:21 SARS-CoV-2 (PCR) Not Detected (NotDetected) 04/04/25 01:21 Coronavirus NL63 (PCR) Not Detected (NotDetected) 04/04/25 01:21 Human Metapneumovir PCR Not Detected (NotDetected) 04/04/25 01:21 Influenza Type A (PCR) Not Detected (NotDetected) 04/04/25 01:21 Influenza Type B (PCR) Not Detected (NotDetected) 04/04/25 01:21 M. pneumoniae (PCR) Not Detected (NotDetected) 04/04/25 01:21 Parainfluenza 1 (PCR) Not Detected (NotDetected) 04/04/25 01:21 Parainfluenza 2 (PCR) Not Detected (NotDetected) 04/04/25 01:21 Parainfluenza 3 (PCR) Not Detected (NotDetected) 04/04/25 01:21 Parainfluenza 4 (PCR) Not Detected (NotDetected) 04/04/25 01:21 RSV (PCR) Not Detected (NotDetected) 04/04/25 01:21 Entero/Rhino (PCR) Not Detected (NotDetected) 04/04/25 01:21 Impressions Chest X-Ray 04/04/25 00:07 EXAM: XR chest 1V portable CLINICAL HISTORY: Dyspnea. TECHNIQUE: Two complementary X-ray images of the chest are obtained in AP projection. COMPARISON: prior CT of the chest on 03/15/2025. FINDINGS: Pulmonary Parenchyma: The apices of both lungs are not assessed in the current study (out of the examination field). Mild hyperinflation of both lungs, matching with mild diffuse emphysematous changes (stable). The tiny lung nodules described in the previous CT cannot be assessed on an X-ray basis. Mild interstitial thickening is noted at both lower lung zones, matching the previously described basal fibroatelectatic changes. However, there are ill-defined airspace opacities at the right lower lung lobe, raising the possibility of an infective process. No evidence of pleural effusion or pleural thickening. Heart and Mediastinum: Heart size and shape are normal, with prominent pericardial fat. No mediastinal widening or masses. No hilar or mediastinal lymphadenopathy. Bony Thorax: Sternotomy sutures are seen (unchanged). The right shoulder joint prosthesis is partially visualized. Soft Tissues: Soft tissues overlying the chest wall are unremarkable. IMPRESSION: - Mild hyperinflation of both lungs, matching with mild diffuse emphysematous changes (stable). - Mild interstitial thickening is noted at both lower lung zones, matching the previously described basal fibroatelectatic changes. - However, there are subtle, ill-defined airspace opacities at the right lower lung lobe, raising the possibility of an infective process. - The tiny lung nodules described in the previous CT cannot be assessed on an X-ray basis. Electronically signed by Bandar De La Fuente 04-04-2025 01:19 AM [facility] Care Time/CCT Total # of Minutes Spent Total Time Spent with Patient: Total time spent is greater than 50% in coordination of care (as documented) at patient's floor/unit and/or counseling patient: Coding Level of Care Code 67572 INT INP/OBS CARE 3/75MIN Diagnoses COPD exacerbation J44.1 BPH (benign prostatic hyperplasia) N40.0 GERD (gastroesophageal reflux disease) K21.9 Hypertension I10 Hyperlipidemia E78.5 Bipolar disorder, unspecified F31.9
[2025-04-04 02:25] LABS: Chlamydia pneumoniae PCR Not Detected (NotDetected); Coronavirus 229E PCR Not Detected (NotDetected); Coronavirus CoV-2 (COVID19)PCR Not Detected (NotDetected); Coronavirus HKU1 PCR Not Detected (NotDetected); Coronavirus NL63 PCR Not Detected (NotDetected); Coronavirus OC43PCR Not Detected (NotDetected); Human Metapneumovirus PCR Not Detected (NotDetected); Parainfluenza Virus 1 PCR Not Detected (NotDetected); Parainfluenza Virus 2 PCR Not Detected (NotDetected); Parainfluenza Virus 3 PCR Not Detected (NotDetected); Parainfluenza Virus 4 PCR Not Detected (NotDetected); Respiratory Syncytial VirusPCR Not Detected (NotDetected); Rhinovirus/Enterovirus PCR Not Detected (NotDetected)
[2025-04-04] MEDS ORDERED: ONDANSETRON INJ 2 MG/ML 2 ML VIAL IV PRN (03:45)
[2025-04-04] MEDS ORDERED: ACETAMINOPHEN 325 MG TAB PO PRN (03:45)
[2025-04-04] MEDS ORDERED: ALBUTEROL 0.5% NEB SOLN 2.5 MG/0.5 ML VIAL NEB PRN (03:45)
[2025-04-04] MEDS: ALBUT/IPRATROP 3MG/0.5MG NEB 3 ML VIAL NEB SCH (04:16)
[2025-04-04] MEDS: cefTRIAXone SODIUM 2,000 MG/50 ML BAG IV SCH (04:18)
[2025-04-04] MEDS: AZITHROMYCIN 250 MG TAB PO ONE (04:18)
[2025-04-04] MEDS: SODIUM CHLOR 7% 4 ML NEB NEB SCH (07:07)
--- NOTE | 2025-04-04 08:55 | Emergency Department Note ---
Impression & Plan Acute and chronic respiratory failure with hypoxia, Acute exacerbation of chronic obstructive pulmonary disease (COPD) ED Provider Note ED Provider Note NAME: BRENDA ALLEN AGE:69 SEX: Male : 1955 ARRIVES VIA: EMS INFORMANT: Patient ED PROVIDER(s): Abbie Sanchez DO CHIEF COMPLAINT: shortness of breath HPI: This is a 69-year-old male who presents to the emergency department via EMS due to concern for increased difficulty breathing. Patient unable to provide much history due to significant work of breathing. EMS reports upon their arrival patient was obvious work of breathing at home and was hypoxic on his usual oxygen via nasal cannula at 3 L/min. Patient reported he had already tried several nebulizer treatments at home without any improvement. Patient was changed to a facemask initially however did not tolerate this and was placed back on a nasal cannula. EMS did give him 1 nebulizer treatment without any improvement. They attempted to start the patient on CPAP however he was too agitated and stated he could not tolerate this. Upon arrival here patient complaining of still being very short of breath. PAST MEDICAL HISTORY:See Below PAST SURGICAL HISTORY:See Below FAMILY HISTORY:See Below SOCIAL HISTORY:See Below HOME MEDICATIONS:See Below ALLERGIES:See Below VITALS:See Below PHYSICAL EXAMINATION: GENERAL: alert, unwell appearing, well nourished, severe distress, non-toxic, attempting to lean forward to breath EYE EXAM: normal conjunctiva, PERRL and EOM's grossly intact OROPHARYNX: no exudate, no erythema, lips, buccal mucosa, and tongue normal and mucous membranes are dry NECK: supple, no nuchal rigidity, no adenopathy, non-tender LUNGS: Decreased b/l to auscultation. prolonged expiratory phase, pursed lip breathing, increased WOB, tachypnea HEART: no murmurs, S1 normal and S2 normal ABDOMEN: abdomen soft, non-tender, normo-active bowel sounds, no masses, no rebound or guarding. BACK: Back is symmetrical on inspection and there is no deformity, no midline tenderness SKIN: no rashes, petechiae, orbruising UPPER EXTREMITIES: upper extremities are grossly normal. FROM, nml pulses b/l. LOWER EXTREMITIES: No pitting edema. FROM, nml pulses b/l. NEURO EXAM: Normal sensorium, cranial nerves II-XII grossly intact, normal speech, no facial droop,nogross weakness of arms, no gross weakness of legs. Gross sensation intact. No ataxia. Vital Signs: reviewed and remarkable Differential Diagnosis: pneumonia, bronchitis, COPD/Asthma exacerbation, pneumothorax, pulmonary embolism, congestive heart failure, acute coronary syndrome, as well as others were considered MEDICAL DECISION MAKING: This is a 69-year-old male presents emergency department due to hypoxia and shortness of breath. Patient On nasal cannula however titrated up from his baseline 3 L/min and was oxygenating however had significant tachypnea and increased work of breathing and continued to complain of feeling short of breath. RT had been contacted prior to his arrival and was at bedside and patient transition to high flow nasal cannula after EMS reported he could not tolerate CPAP en route. After this was started, a additional neb was given through this. Labs are drawn and sent, IV established, and patient monitored on telemetry. Patient was given IV magnesium, IV Solu-Medrol, and a dose of IV ketamine to help allow for the transition to BiPAP. Patient was started on gentle IV fluid hydration. Preparations were made for possible impending intubation at bedside due to the severity of his condition. EKG performed at bedside and interpreted by me. VBG added to initial labs, nasal swab obtained and sent for viral panel. Patient did have some improvement and able to be transitioned to BiPAP following ketamine administration. He was then given a milligram of Versed additionally. Further nebulizers performed, additional IV mag and IV Solu-Medrol added. Patient slowly began to have a decrease in his work of breathing, a decrease in his tachypnea, and appeared more comfortable. Patient reexamined multiple times and on repeat auscultation had improved air movement now with wheezing present particularly in the expiratory phase. After 45 minutes patient began to report that he was slowly feeling slightly improved. Patient continued to be closely monitored and examined multiple times. I did discuss the patient's case with the son who presented to bedside additionally. Case discussed with the hospitalist team for additional evaluation and management. Initial VBG reassuring despite his appearance and condition. After 1 hour on BiPAP a [id number] ABG was drawn and sent by respiratory and was improved. Given significant history of end-stage COPD I suspect patient very susceptible to any changes including viral symptoms, allergens, and even recent low air quality. Patient noted to have leukocytosis however I suspect this is secondary to stress demargination and his increased work of breathing. I am less suspicious for occult infectious etiology. Viral swab ultimately negative. I do not suspect ACS or PE. Consultation(s): 0140: Discussed with Dr. Junior, [place] hospitalist team, for additional evaluation and mgmt. ER Treatment Provided: See below 0135: Son now at bedside additionally. He states patient follows with Dr. Palm locally however is also seeing a thread reeler through [facility] and was recently added to the lung transplant list. He states he feels his breathing is slowly been worsening over the last few weeks. No obvious sick contact but his in the home does still work and is exposed to many people at her job. 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 Diagnostics Interpreted By Me: -ECG: Sinus tachycardia at 119, normal axis, QRS of 120 with appearance of right bundle branch block, normal QTc, nonspecific ST/T wave changes -Cardiac Monitoring: An order was placed for continuous cardiac monitoring. The monitor shows a rate of 120 with sinus tachycardia rhythm. -Laboratory studies: As stated above and show below. -Imaging studies: X-ray Chest: A single view study of the chest was reviewed and was negative for cardiomegaly, focal infiltrate, effusion, pulmonary edema, or wide mediastinum. Triage Nursing Note Reviewed Prior/Outside Records Reviewed - prior DC summary reviewed Critical Care: Critical care of 78 min performed to assess and manage high likelihood of life-threatening acute hypoxic respiratory failure, involving labs and imaging performed with assessment to evaluate shortness of breath and hypoxia diagnosis with frequent reassessment. This time includes bedside time, treatment discussions with patient/family/consultants, documentation time and excludes procedure time. 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 [place] Colonic diverticular abscess Nausea and vomiting Change in bowel habits Domestic problems (Acute) Anxiety (Acute) Osteoporosis History of colon polyps Gastritis Elevated troponin (Acute) Acute hypokalemia (Acute) Intractable nausea and vomiting (Acute) S/P trigger finger release Dementia stage 3 Trigger finger, right ring finger Trigger thumb of right hand AMS (altered mental status) Encounter for pre-operative examination COVID (Acute) Other instability, left elbow Rotator cuff tear, left Celiac disease Encounter for pre-operative examination Abnormal EKG (Acute) Hypercalcemia (Acute) Vomiting (Acute) Acute duodenitis (Acute) COPD with acute exacerbation (Acute) Restless leg Anemia (Acute) Chronic pain PATTON (dyspnea on exertion) Status post reverse arthroplasty of right shoulder (~04/2020) BPH (benign prostatic hyperplasia) GERD (gastroesophageal reflux disease) Well controlled and stable Hypertension Hyperlipidemia Hx of venous thrombosis and embolism (Acute) Bipolar disorder, unspecified (Acute) Weight loss Pulmonary nodule Hemostasis disorder (Acute) COPD (chronic obstructive pulmonary disease) (Acute) COPD (chronic obstructive pulmonary disease) (Chronic) Heart disease (Chronic) Severe recurrent major depression without psychotic features (Acute 04/19/11) Acute exacerbation of chronic obstructive airways disease (Acute 02/07/11) Generalized anxiety disorder (Chronic 03/31/11) Medical History Diverticulitis large intestine Transaminitis Perforation of sigmoid colon due to diverticulitis Acute exacerbation of chronic obstructive pulmonary disease Hx of deep venous thrombosis (2018) rightT ARM 2018 (TREATED WITH ELIQUIS)- on AC x 6 months- then d/c'ed- no issues since. Did follow with heme- no known clotting issues - felt secondary to A-port- A port removed. Bipolar affective disorder in remission RBBB (right bundle branch block with left anterior fascicular block) CAD (coronary artery disease) COPD (chronic obstructive pulmonary disease) Pulmonary nodule 1 cm or greater in diameter Restless leg RBBB (right bundle branch block with left anterior fascicular block) Heart disease GERD (gastroesophageal reflux disease) PATTON (dyspnea on exertion) CAD (coronary artery disease) Hx of colonic polyps Dementia per chart, pt. was able to complete PAT interview with ease Osteoporosis Bipolar affective disorder in remission Hx pulmonary embolism (2009) Manic episode (03/2024) reports manic depressive at beginning of march, resolved Insomnia On anticoagulant therapy plavix daily Hx of non-ST elevation myocardial infarction (NSTEMI) (2019) "debateable" History of COVID-19 (2021) diagnosed 02/04/22 via home test only--cough, fatigue, muscle aches, runny nose--no symptoms now Celiac disease On home oxygen therapy 2L prn PVD (peripheral vascular disease) S/p angioplasties. On Plavix- cannot tolerate ASA Anxiety and depression Hearing deficit b/l perez's Aortic valve defect Had AVR secondary to AR per patient "HAS MINIMAL LEAKING FROM PROSTHETIC COW AORTIC VALVE" Lung nodules Following with pulm Sleep apnea cpap with 2L at hs Chronic obstructive pulmonary disease stage 4 COPD, on prednisone maintenance program, currently going thru eval for lung transplant list Asthma Well controlled - inhalers daily and prn--nebulizer prn Surgical History Hx of colonoscopy with polypectomy Status post trigger [place] [facility] [place]ring finger History of transesophageal echocardiography (MELISSA) (~08/16/19) History of cardiac cath (~05/15/19) @ [facility] with Dr. Ji, no stents, no [place], History of vascular access device infuasport placed and removed in past for IGG History of umbilical hernia repair History of right inguinal hernia repair History of cholecystectomy History of esophagogastroduodenoscopy (EGD) History of phacoemulsification of cataract of both eyes with intraocular lens implantation History of angioplasty LEs and hand History of aortic valve replacement (2009) 2009 @ [facility] -follows with Dr. Ji in [place] History of bronchoscopy Family History Father Family history of diabetes mellitus Other No family history of adverse response to anesthesia Social History Smoking Status: Former smoker Tobacco Type: Cigarettes Age Started Using Tobacco: 14; Age Quit Using Tobacco: 54; Second Hand Exposure: No; Do You Dip or Chew Tobacco: No; Hx Alcohol Use: No Hx Substance Use: No Preferred Language: Canadian Communication Ability: Effective Electrical Equipment Tester Required: No Beliefs That Will Affect Care: None marital status: Current Living Situation: Spouse Current Living Situation Comment: Lives with and son Other Information That Helps Us Care for You: No Feels Safe at Home: Yes Safety Concerns: Feels Safe At This Time Gender Identity: Male Assistive Devices: Cane and Oxygen - Continuous Assistive Devices Comment: Inogen at bedside Allergies Allergies Allergy/AdvReac Type Severity Reaction Status Date / Time gluten Allergy Severe celiac Verified 04/04/25 02:48 disease wheat Allergy Severe celiac Verified 04/04/25 02:48 disease NSAIDS (Non-Steroidal Allergy Intermediate Hives Verified 04/04/25 02:48 Anti-Inflamma aspirin Allergy Mild RASH,HIVES Verified 04/04/25 02:48 lisinopril Allergy Mild Hives Verified 04/04/25 02:48 naproxen [From Naprosyn] Allergy Mild Hives Verified 04/04/25 02:48 memantine Allergy Unknown Verified 04/04/25 02:48 Home Meds Home Medications Medication Instructions Recorded Confirmed atorvastatin 80 mg tablet 80 mg PO QAM 01/16/19 04/04/25 ferrous sulfate 325 mg (65 mg 325 mg PO Q OTHER DAY 12/11/20 04/04/25 iron) tablet clopidogrel 75 mg tablet (Plavix) 75 mg PO QAM 04/08/22 04/04/25 ezetimibe 10 mg tablet (Zetia) 10 mg PO HS 11/14/23 04/04/25 folic acid 1 mg tablet 1 mg PO DAILY 11/14/23 04/04/25 calcium 315 mg-vitamin D3 250 1 tab PO BID 02/28/24 04/04/25 unit-phytosterols 200 mg tablet cholecalciferol (vitamin D3) 25 50 mcg PO QAM 02/28/24 04/04/25 mcg (1,000 unit) tablet famotidine 20 mg tablet 20 mg PO QAM 02/28/24 04/04/25 pantoprazole 40 mg tablet,delayed 40 mg PO QAM 02/28/24 04/04/25 release acetaminophen 325 mg tablet 325 mg PO DAILY PRN INFUSION 10/23/24 04/04/25 amlodipine 10 mg tablet 5 mg PO DAILY 10/23/24 04/04/25 carvedilol 25 mg tablet 12.5 mg PO BID 10/23/24 04/04/25 guaifenesin 600 mg tablet, 600 mg PO Q12H PRN Congestion 10/23/24 04/04/25 extended release 12 hr albuterol sulfate 2.5 mg/0.5 mL 5 mg inhalation Q6H Shortness Of 04/04/25 04/04/25 solution for nebulization Breath Or Wheezing azithromycin 500 mg tablet 500 mg PO .3XW/UD 04/04/25 04/04/25 hydrocortisone 5 mg tablet 5 mg PO .DAILY @2PM 04/04/25 04/04/25 hydrocortisone 5 mg tablet 5 mg PO .UD 04/04/25 04/04/25 olanzapine 10 mg tablet 5 mg PO HS 04/04/25 04/04/25 tamsulosin 0.4 mg capsule 0.4 mg PO HS 04/04/25 04/04/25 teriparatide 20 mcg/dose (560 20 mcg subcut QAM 04/04/25 04/04/25 mcg/2.24 mL) subcutaneous pen injector (Forteo) Previous Rx's Medication Instructions Recorded divalproex 250 mg tablet,extended 250 mg PO BID #60 tabs 04/08/24 release 24 hr Oxygen Home #1 ea 11/05/24 Portable Oxygen #1 ea 11/05/24 albuterol sulfate 90 mcg/actuation 2 puff inhalation Q6H PRN 11/12/24 aerosol inhaler Shortness Of Breath #8.5 grams roflumilast 500 mcg tablet 500 mcg PO DAILY #30 tabs 11/12/24 tiotropium bromide 18 mcg capsule 2 cap inhalation DAILY #90 11/12/24 with inhalation device (Spiriva inhalations with HandiHaler) Results & Data (ED) Vital Signs Vital Signs - 24 hr 04/03/25 23:58 04/03/25 23:58 04/04/25 00:07 Temperature 36.5 C Temperature Source Oral Pulse Rate 128 H 135 H Pulse Rate [Apical] Pulse Rhythm Irregular Irregular Pulse Rhythm [Apical] Pulse Strength Normal Pulse Strength [Apical] Respiratory Rate 36 H 34 H Respiratory Effort / Characteristics Labored Pursed Lip Labored Pursed Lip Respiratory Depth Shallow Shallow Respiratory Pattern Tachypnea Tachypnea Blood Pressure 137/92 Blood Pressure [Left Arm] Blood Pressure Mean 107 Blood Pressure Mean [Left Arm] Blood Pressure Position Sitting Blood Pressure Position [Left Arm] Pulse Oximetry 89 L 95 Oxygen Delivery Method Nasal Cannula BiPAP Oxygen Flow Rate 6 Fraction of Inspired Oxygen SaO2/FiO2 Ratio Sepsis Recent Fever Within 48 Hours No Sepsis New/Unexplained Change in Mental Status No Sepsis Action Taken by Nursing Physician Notified Pulse Oximetry Post Tiitration 04/04/25 00:12 04/04/25 00:34 04/04/25 00:41 Temperature Temperature Source Pulse Rate 128 H Pulse Rate [Apical] 134 H Pulse Rhythm Pulse Rhythm [Apical] Regular Pulse Strength Pulse Strength [Apical] Normal Respiratory Rate 30 H Respiratory Effort / Characteristics Labored Pursed Lip Respiratory Depth Shallow Respiratory Pattern Tachypnea Blood Pressure Blood Pressure [Left Arm] 141/117 H Blood Pressure Mean Blood Pressure Mean [Left Arm] 125 Blood Pressure Position Blood Pressure Position [Left Arm] Lying Pulse Oximetry 94 89 L Oxygen Delivery Method BiPAP Nasal Cannula BiPAP Oxygen Flow Rate 6 Fraction of Inspired Oxygen 100 SaO2/FiO2 Ratio 94 Sepsis Recent Fever Within 48 Hours Sepsis New/Unexplained Change in Mental Status Sepsis Action Taken by Nursing Pulse Oximetry Post Tiitration 94 04/04/25 01:23 04/04/25 01:34 04/04/25 02:00 Temperature Temperature Source Pulse Rate Pulse Rate [Apical] 111 H 101 H 97 H Pulse Rhythm Pulse Rhythm [Apical] Irregular Irregular Irregular Pulse Strength Pulse Strength [Apical] Normal Normal Normal Respiratory Rate 22 20 20 Respiratory Effort / Characteristics Spontaneous Labored Non-Labored Spontaneous Non-Labored Spontaneous Respiratory Depth Normal Normal Normal Respiratory Pattern Regular Regular Regular Blood Pressure Blood Pressure [Left Arm] 152/87 H 142/76 H 134/85 Blood Pressure Mean Blood Pressure Mean [Left Arm] 108 98 101 Blood Pressure Position Blood Pressure Position [Left Arm] Lying Lying Lying Pulse Oximetry 96 99 96 Oxygen Delivery Method BiPAP BiPAP BiPAP Oxygen Flow Rate Fraction of Inspired Oxygen 40 40 40 SaO2/FiO2 Ratio 240 247 240 Sepsis Recent Fever Within 48 Hours Sepsis New/Unexplained Change in Mental Status Sepsis Action Taken by Nursing Pulse Oximetry Post Tiitration 04/04/25 02:02 Temperature Temperature Source Pulse Rate 125 H Pulse Rate [Apical] Pulse Rhythm Pulse Rhythm [Apical] Pulse Strength Pulse Strength [Apical] Respiratory Rate 33 H Respiratory Effort / Characteristics Accessory Muscle Use Grunting Labored Short of Breath Respiratory Depth Deep Respiratory Pattern Tachypnea Blood Pressure Blood Pressure [Left Arm] Blood Pressure Mean Blood Pressure Mean [Left Arm] Blood Pressure Position Blood Pressure Position [Left Arm] Pulse Oximetry 95 Oxygen Delivery Method Oxygen Flow Rate Fraction of Inspired Oxygen 40 SaO2/FiO2 Ratio Sepsis Recent Fever Within 48 Hours Sepsis New/Unexplained Change in Mental Status Sepsis Action Taken by Nursing Pulse Oximetry Post Tiitration Laboratory Data 04/04/25 00:16 04/04/25 00:16 Lab Results 04/04/25 04/04/25 Range/Units 00:16 01:21 WBC 15.38 H (4.8-10.8) K/ul RBC 5.32 (4.70-6.10) M/uL Hgb 15.0 (14.0-18.0) g/dl Hct 44.3 (42.0-52.0) % MCV 83.3 (80.0-100.0) fL MCH 28.2 (25.0-34.0) pg MCHC 33.9 (32.0-36.0) g/dL RDW Std Deviation 39.5 (36.4-46.3) fL RDW Coeff of Rosario 13.1 (11.5-14.5) % Plt Count 245 (130-400) K/uL MPV 9.5 (9.4-12.4) fL Immature Gran % (Auto) 0.5 % Neut % (Auto) 81.1 % Lymph % (Auto) 11.2 % [place] % (Auto) 6.7 % Eos % (Auto) 0.1 % Baso % (Auto) 0.4 % Neut # (Auto) 12.49 H (1.40-6.50) K/uL Lymph # (Auto) 1.72 (1.20-3.40) K/uL [place] # (Auto) 1.03 H (0.11-0.59) K/uL Eos # (Auto) 0.01 (0.00-0.50) K/uL Baso # (Auto) 0.06 (0.00-0.20) K/uL Immature Gran # (Auto) 0.07 (0.01-0.20) K/uL VBG pH 7.32 L (7.36-7.41) VBG pCO2 62 H (38-50) mmHg VBG pO2 61 mmHg VBG HCO3 32 mmol/L VBG O2 Saturation 88.8 % VBG Base Excess 4.0 mEq/L Sodium 138 (136-145) mmol/L Potassium 4.7 (3.5-5.1) mmol/L Chloride 98 (98-107) mmol/L Carbon Dioxide 29 (21-32) mmol/L Anion Gap 11 (3-11) BUN 22 (6-23) mg/dl Creatinine 1.02 (0.6-1.4) mg/dl Est Cr Clr Drug Dosing 71.1 ml/min eGFR 79.07 BUN/Creatinine Ratio 21.6 H (10-20) Glucose 134 H (70-99(Fasting)) mg/dl Calcium 9.9 (8.6-10.3) mg/dl Total Bilirubin 0.5 (0.2-1.0) mg/dl AST 25 (13-39) U/L ALT 23 (7-52) U/L Alkaline Phosphatase 96 (34-104) U/L B-Natriuretic Peptide 75 (0-100) pg/ml Total Protein 8.3 (6.0-8.3) gm/dl Albumin 4.5 (3.4-5.0) gm/dl Globulin 3.8 (2.5-4.0) gm/dl Albumin/Globulin Ratio 1.2 (0.9-2) Procalcitonin 0.05 (0-0.5) ng/ml Adenovirus (PCR) Not Detected (NotDetected) B. pertussis DNA (PCR) Not Detected (NotDetected) B.parapertussis DNA PCR Not Detected (NotDetected) C. pneumoniae DNA (PCR) Not Detected (NotDetected) Coronavirus OC43 (PCR) Not Detected (NotDetected) Coronavirus HKU1 (PCR) Not Detected (NotDetected) Coronavirus 229E (PCR) Not Detected (NotDetected) SARS-CoV-2 (PCR) Not Detected (NotDetected) Coronavirus NL63 (PCR) Not Detected (NotDetected) Human Metapneumovir PCR Not Detected (NotDetected) Influenza Type A (PCR) Not Detected (NotDetected) Influenza Type B (PCR) Not Detected (NotDetected) M. pneumoniae (PCR) Not Detected (NotDetected) Parainfluenza 1 (PCR) Not Detected (NotDetected) Parainfluenza 2 (PCR) Not Detected (NotDetected) Parainfluenza 3 (PCR) Not Detected (NotDetected) Parainfluenza 4 (PCR) Not Detected (NotDetected) RSV (PCR) Not Detected (NotDetected) Entero/Rhino (PCR) Not Detected (NotDetected) Administered Medications Albuterol (Albut/Ipratrop 3mg/0.5mg Neb 3 Ml Vial) 3 ml NEB Q4R JERRY; Protocol Stop: 05/04/25 03:44 Last Admin: 04/04/25 07:07 Dose: 3 ml Documented By: [id number] Admin: 04/04/25 04:16 Dose: 3 ml Documented By: MAURA Ceftriaxone Sodium (Rocephin) 2,000 mg in 50 mls @ 100 mls/hr IV Q24H [facility] Stop: 04/09/25 03:59 Last Infusion: 04/04/25 05:24 Dose: Infused Documented By: Admin: 04/04/25 04:18 Dose: 100 mls/hr Documented By: MANISH Sodium Chloride (Sodium Chlor 7% 4 Ml Neb) 4 ml NEB BIDR JERRY Stop: 05/04/25 06:59 Last Admin: 04/04/25 07:07 Dose: 4 ml Documented By: [id number] Discontinued Medications Albuterol (Albuterol 0.5% Neb Soln 2.5 Mg/0.5 Ml Vial) 2.5 mg NEB NOW STA; Protocol Stop: 04/04/25 00:08 Last Admin: 04/04/25 00:32 Dose: 2.5 mg Documented By: MALENA Albuterol (Albut/Ipratrop 3mg/0.5mg Neb 3 Ml Vial) 12 ml NEB ONE ONE; Protocol Stop: 04/04/25 00:33 Last Admin: 04/04/25 01:04 Dose: 12 ml Documented By: MALENA Azithromycin (Azithromycin 250 Mg Tab) 500 mg PO NOW ONE Stop: 04/04/25 03:46 Last Admin: 04/04/25 04:18 Dose: 500 mg Documented By: MANISH Magnesium Sulfate/Dextrose (Magnesium Sulfate / D5w) 1 gm in 100 mls @ 100 mls/hr IV NOW STA Stop: 04/04/25 01:13 Last Infusion: 04/04/25 00:32 Dose: Infused Documented By: Admin: 04/04/25 00:17 Dose: 100 mls/hr Documented By: MALENA Sodium Chloride (Nss) 1,000 mls @ 125 mls/hr IV .Q8H [facility] Stop: 04/07/25 00:14 Last Infusion: 04/04/25 03:46 Dose: Infused Documented By: Admin: 04/04/25 00:32 Dose: 125 mls/hr Documented By: MALENA Magnesium Sulfate/Dextrose (Magnesium Sulfate / D5w) 1 gm in 100 mls @ 100 mls/hr IV NOW STA Stop: 04/04/25 01:50 Last Infusion: 04/04/25 01:54 Dose: Infused Documented By: Admin: 04/04/25 00:56 Dose: 100 mls/hr Documented By: MALENA Magnesium Sulfate/Dextrose (Magnesium Sulfate / D5w) 1 gm in 100 mls @ 100 mls/hr IV NOW STA Stop: 04/04/25 01:50 Last Admin: 04/04/25 01:04 Dose: Not Given Documented By: MALENA Ketamine HCl (Ketamine Hcl 10mg/Ml Syr) 20 mg IV NOW STA Stop: 04/04/25 00:08 Last Admin: 04/04/25 00:18 Dose: 20 mg Documented By: MALENA Methylprednisolone (Methylprednisolone 125 Mg/2 Ml Vial) 60 mg IV NOW STA Stop: 04/04/25 00:14 Last Admin: 04/04/25 00:17 Dose: 60 mg Documented By: MALENA Methylprednisolone (Methylprednisolone 125 Mg/2 Ml Vial) 40 mg IV NOW STA Stop: 04/04/25 00:52 Last Admin: 04/04/25 00:57 Dose: 40 mg Documented By: MALENA Midazolam HCl (Midazolam Hcl 1 Mg/Ml 2ml Vial) 2 mg IV NOW STA Stop: 04/04/25 00:27 Last Admin: 04/04/25 01:02 Dose: Not Given Documented By: MALENA Miscellaneous (Rapid Sequence Induction Bag) Confirm Administered Dose 1 each N/A .STK-MED ONE Stop: 04/04/25 00:22 Last Admin: 04/04/25 01:48 Dose: Not Given Documented By: MALENA Ondansetron HCl (Ondansetron Inj 2 Mg/Ml 2 Ml Vial) Confirm Administered Dose 4 mg .ROUTE .STK-MED ONE Stop: 04/04/25 01:00 Last Admin: 04/04/25 01:04 Dose: 4 mg Documented By: MALENA Imaging Data Radiologist's Impression: Chest X-Ray 04/04/25 00:07 EXAM: XR chest 1V portable CLINICAL HISTORY: Dyspnea. TECHNIQUE: Two complementary X-ray images of the chest are obtained in AP projection. COMPARISON: prior CT of the chest on 03/15/2025. FINDINGS: Pulmonary Parenchyma: The apices of both lungs are not assessed in the current study (out of the examination field). Mild hyperinflation of both lungs, matching with mild diffuse emphysematous changes (stable). The tiny lung nodules described in the previous CT cannot be assessed on an X-ray basis. Mild interstitial thickening is noted at both lower lung zones, matching the previously described basal fibroatelectatic changes. However, there are ill-defined airspace opacities at the right lower lung lobe, raising the possibility of an infective process. No evidence of pleural effusion or pleural thickening. Heart and Mediastinum: Heart size and shape are normal, with prominent pericardial fat. No mediastinal widening or masses. No hilar or mediastinal lymphadenopathy. Bony Thorax: Sternotomy sutures are seen (unchanged). The right shoulder joint prosthesis is partially visualized. Soft Tissues: Soft tissues overlying the chest wall are unremarkable. IMPRESSION: - Mild hyperinflation of both lungs, matching with mild diffuse emphysematous changes (stable). - Mild interstitial thickening is noted at both lower lung zones, matching the previously described basal fibroatelectatic changes. - However, there are subtle, ill-defined airspace opacities at the right lower lung lobe, raising the possibility of an infective process. - The tiny lung nodules described in the previous CT cannot be assessed on an X-ray basis. Electronically signed by Bandar De La Fuente 04-04-2025 01:19 AM Discharge Plan Visit Data Chief Complaint: Respiratory Distress Stated Complaint: Respiratory Distress ED Provider: Abbie Sanchez Discharge Problem: Acute and chronic respiratory failure with hypoxia, Acute exacerbation of chronic obstructive pulmonary disease (COPD) Patient Disposition: Admitted As Inpatient Condition: Critical Discharge Instructions Interventions: ED Discharge Assessment Last Done: 04/04/25 03:12
--- NOTE | 2025-04-04 08:58 | Pulmonary Consultation ---
Date of Consultation April 04, 2025 Assessment & Plan (1) Acute exacerbation of chronic obstructive pulmonary disease (COPD): (2) Acute and chronic respiratory failure with hypoxia: (3) Chronic bronchitis: (4) Sleep apnea: Plan CT chest 03/15/2025 personally reviewed: Severe centrilobular emphysema appreciated bilaterally Left upper lobe 6 mm peripheral pulmonary nodule (previously 8 mm) No significant mediastinal lymphadenopathy Motion degraded study Spirometry 05/21/2024 personally reviewed: Severe obstructive lung dysfunction FVC 3.77 L 73%, FEV1 1.15 L 46%, FEV1/FVC 31% PFT 01/22/2021 personally reviewed: Very severe obstructive lung dysfunction, insignificant bronchodilator response FVC 4.27 L 110%, FEV1 0.96 L 36%, FEV1/FVC 23%, TLC 100%, RV 61%, RV/TLC ratio 24, DLCO 63%, DLCO/VA 65% 2D echo 10/17/2024: EF 65 to 70%, grade 1 diastolic dysfunction, RV normal in size and function -- Acute exacerbation of COPD with emphysema and chronic bronchitis Gold class E > [id number] smoking history, quit in 2009 On 2 L oxygen at baseline at home Respiratory BioFire negative for everything on 04/04/2025 At home on high-dose Symbicort along with Spiriva on a daily basis. 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 I did explain to him that the Theophylline therapeutic window is small. I will try to get the patient's Dupixent from the clinic but unfortunately it was denied Patient is also going to [facility] for lung transplant evaluation. Mucinex as needed for chronic bronchitis and chest congestion. Hypertonic saline nebulized to his regimen NIOX 07/13/2024: 6, low --MARIA T On CPAP at home -- Ex-smoker > [id number]-fgth smoking history, quit in 2009 Encouraged to continue abstinence from smoking Continue with lung screening, next one will be 02/2026 CT chest 10/23/2024 personally reviewed: Severe centrilobular and paraseptal emphysema appreciated bilaterally No significant mediastinal lymphadenopathy --History of lupus in one of the sisters Plan: Nebulized bronchodilators while in the hospital Continue with hypertonic saline, Mucinex and flutter valve Patient is usually taking azithromycin Drmgxr-Mkdxjtsux-Sgvxxr at home. Would rather have him take doxycycline for 5 days and go back to azithromycin for 100 mg home dose. Patient does follow-up with [facility] transplant and he is on a transplant list. He was told by the [facility] transplant team that if he gets COPD exacerbation needing hospitalization then to call the [facility] lung center and see if they are willing to accept him as a transfer. This was relayed to primary team and they will try to work on trying to get him transferred if possible I spent more than 75 minutes looking in the chart, images, discussing the plan of care with the patient, RN as well as primary team Please note the above document was generated using voice recognition software. It may contain grammatical, syntax or spelling errors.Any formal questions or concerns about the content, text or information contained within the body of this dictation should be directly addressed to the provider for clarification. History of Present Illness Attending Physician: Demi Noguera MD History of Present Illness 69-year-old male admitted for shortness of breath Past medical history: Hypertension, GERD, BPH, dyslipidemia, mood disorder with fran, coronary artery disease s/p CABG 2009 Patient was last seen by me in the office on 11/12/2024 At the time of examination patient was not in any respiratory distress He was saturating 93-94% on 1 and half liters nasal cannula which is his baseline. In the ED when he presented he was so short of breath that they had to give him ketamine which did help with his breathing and they were able to avoid intubation He is very compliant with his inhalers and I am sure that he is compliant because he is my patient from the clinic He was having shortness of breath which has been getting worse in the last 4-5 days Associated with chest tightness and coughing sticky phlegm. Denies any hemoptysis. No fever or chills No diarrhea, no dysuria prior to coming to the hospital. No recent travel history No sick contacts that he is aware of Social history:> [id number]-gjqv smoking history, quit in 2009, social alcohol, denies any illicit drug use. 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 Pets: Has dogs and cats at home. No birds or poultry nearby Allergies: Denies Asthma: No personal or family history of asthma Lung cancer: No history of lung cancer in the family Allergies Allergy/AdvReac Type Severity Reaction Status Date / Time gluten Allergy Severe celiac Verified 04/04/25 02:48 disease wheat Allergy Severe celiac Verified 04/04/25 02:48 disease NSAIDS (Non-Steroidal Allergy Intermediate Hives Verified 04/04/25 02:48 Anti-Inflamma aspirin Allergy Mild RASH,HIVES Verified 04/04/25 02:48 lisinopril Allergy Mild Hives Verified 04/04/25 02:48 naproxen [From Naprosyn] Allergy Mild Hives Verified 04/04/25 02:48 memantine Allergy Unknown Verified 04/04/25 02:48 Home Medications Medication Instructions Recorded Confirmed Type atorvastatin 80 mg tablet 80 mg PO QAM 01/16/19 04/04/25 History ferrous sulfate 325 mg (65 mg 325 mg PO Q OTHER DAY 12/11/20 04/04/25 History iron) tablet clopidogrel 75 mg tablet (Plavix) 75 mg PO QAM 04/08/22 04/04/25 History ezetimibe 10 mg tablet (Zetia) 10 mg PO HS 11/14/23 04/04/25 History folic acid 1 mg tablet 1 mg PO DAILY 11/14/23 04/04/25 History calcium 315 mg-vitamin D3 250 1 tab PO BID 02/28/24 04/04/25 History unit-phytosterols 200 mg tablet cholecalciferol (vitamin D3) 25 50 mcg PO QAM 02/28/24 04/04/25 History mcg (1,000 unit) tablet famotidine 20 mg tablet 20 mg PO QAM 02/28/24 04/04/25 History pantoprazole 40 mg tablet,delayed 40 mg PO QAM 02/28/24 04/04/25 History release divalproex 250 mg tablet,extended 250 mg PO BID #60 tabs 04/08/24 04/04/25 Rx release 24 hr acetaminophen 325 mg tablet 325 mg PO DAILY PRN INFUSION 10/23/24 04/04/25 History amlodipine 10 mg tablet 5 mg PO DAILY 10/23/24 04/04/25 History carvedilol 25 mg tablet 12.5 mg PO BID 10/23/24 04/04/25 History guaifenesin 600 mg tablet, 600 mg PO Q12H PRN Congestion 10/23/24 04/04/25 History extended release 12 hr Oxygen Home #1 ea 11/05/24 11/13/24 Rx Portable Oxygen #1 ea 11/05/24 11/13/24 Rx albuterol sulfate 90 mcg/actuation 2 puff inhalation Q6H PRN 11/12/24 04/04/25 Rx aerosol inhaler Shortness Of Breath #8.5 grams roflumilast 500 mcg tablet 500 mcg PO DAILY #30 tabs 11/12/24 04/04/25 Rx tiotropium bromide 18 mcg capsule 2 cap inhalation DAILY #90 11/12/24 04/04/25 Rx with inhalation device (Spiriva inhalations with HandiHaler) albuterol sulfate 2.5 mg/0.5 mL 5 mg inhalation Q6H Shortness Of 04/04/25 04/04/25 History solution for nebulization Breath Or Wheezing azithromycin 500 mg tablet 500 mg PO .3XW/UD 04/04/25 04/04/25 History hydrocortisone 5 mg tablet 5 mg PO .DAILY @2PM 04/04/25 04/04/25 History hydrocortisone 5 mg tablet 5 mg PO .UD 04/04/25 04/04/25 History olanzapine 10 mg tablet 5 mg PO HS 04/04/25 04/04/25 History tamsulosin 0.4 mg capsule 0.4 mg PO HS 04/04/25 04/04/25 History teriparatide 20 mcg/dose (560 20 mcg subcut QAM 04/04/25 04/04/25 History mcg/2.24 mL) subcutaneous pen injector (Forteo) Patient History Medical History Diverticulitis large intestine Transaminitis Perforation of sigmoid colon due to diverticulitis Acute exacerbation of chronic obstructive pulmonary disease Hx of deep venous thrombosis (2019) rightT ARM 2019 (TREATED WITH ELIQUIS)- on AC x 6 months- then d/c'ed- no issues since. Did follow with heme- no known clotting issues - felt secondary to A-port- A port removed. Bipolar affective disorder in remission RBBB (right bundle branch block with left anterior fascicular block) CAD (coronary artery disease) COPD (chronic obstructive pulmonary disease) Pulmonary nodule 1 cm or greater in diameter Restless leg RBBB (right bundle branch block with left anterior fascicular block) Heart disease GERD (gastroesophageal reflux disease) PATTON (dyspnea on exertion) CAD (coronary artery disease) Hx of colonic polyps Dementia per chart, pt. was able to complete PAT interview with ease Osteoporosis Bipolar affective disorder in remission Hx pulmonary embolism (2009) Manic episode (03/2024) reports manic depressive at beginning of march, resolved Insomnia On anticoagulant therapy plavix daily Hx of non-ST elevation myocardial infarction (NSTEMI) (2019) "debateable" History of COVID-19 (2021) diagnosed 02/04/22 via home test only--cough, fatigue, muscle aches, runny nose--no symptoms now Celiac disease On home oxygen therapy 2L prn PVD (peripheral vascular disease) S/p angioplasties. On Plavix- cannot tolerate ASA Anxiety and depression Hearing deficit b/l perez's Aortic valve defect Had AVR secondary to AR per patient "HAS MINIMAL LEAKING FROM PROSTHETIC COW AORTIC VALVE" Lung nodules Following with pulm Sleep apnea cpap with 2L at Chronic obstructive pulmonary disease stage 4 COPD, on prednisone maintenance program, currently going thru eval for lung transplant list Asthma Well controlled - inhalers daily and prn--nebulizer prn Surgical History Hx of colonoscopy with polypectomy Status post trigger finger release 05/2023 @ [facility] [place]--right thumb/ring finger History of transesophageal echocardiography (MELISSA) (~08/16/19) History of cardiac cath (~05/15/19) @ [facility] with Dr. Ji, no stents, no NC, History of vascular access device infuasport placed and removed in past for IGG History of umbilical hernia repair History of right inguinal hernia repair History of cholecystectomy History of esophagogastroduodenoscopy (EGD) History of phacoemulsification of cataract of both eyes with intraocular lens implantation History of angioplasty LEs and hand History of aortic valve replacement (2009) 2009 @ [facility] -follows with Dr. Ji in [place] History of bronchoscopy Family History Father Family history of diabetes mellitus Other No family history of adverse response to anesthesia Social History Smoking Status: Former smoker Tobacco Type: Cigarettes Age Started Using Tobacco: 14; Age Quit Using Tobacco: 54; Second Hand Exposure: No; Do You Dip or Chew Tobacco: No; Hx Alcohol Use: No Hx Substance Use: No Preferred Language: Argentine Communication Ability: Effective Medical Administrative Technician Required: No Beliefs That Will Affect Care: None marital status: Current Living Situation: Spouse Current Living Situation Comment: Lives with and son Other Information That Helps Us Care for You: No Feels Safe at Home: Yes Safety Concerns: Feels Safe At This Time Gender Identity: Male Assistive Devices: Cane and Oxygen - Continuous Assistive Devices Comment: Inogen at bedside Review of Systems 2 Review of Systems: All systems reviewed & are unremarkable except as noted in HPI & below Physical Exam 2 Physical Exam: Constitutional: No acute distress HEENT: EOMI, PERRLA Respiratory system: Decreased air entry bilaterally, minimal expiratory wheeze, no rhonchi, no crackles CVS: S1-S2 positive, no murmurs or gallops, distant heart sounds Abdomen: Soft, nontender, nondistended, positive bowel sounds x4 Extremities: +2 pulses bilaterally radialis/ dorsalis pedis, no cyanosis, minimal pitting edema bilateral lower extremity Neuro: Awake alert oriented x3 Psych: Normal mood and affect G/U: No Garcia Skin: no rashes, warm and dry Lymphatic: no cervical or axillary lymphadenopathy Results & Data Results & Data Vital Signs (Past 12 Hours) Vital Signs Temp Pulse Pulse Resp BP BP Pulse Ox 04/04/25 07:50 36.8 C 85 18 142/88 H 96 04/04/25 07:39 85 18 95 04/04/25 07:07 82 22 98 04/04/25 05:13 86 04/04/25 04:34 04/04/25 03:45 04/04/25 03:43 36.8 C 87 22 124/68 95 04/04/25 03:12 86 24 126/73 97 04/04/25 02:02 125 H 33 H 95 04/04/25 02:00 97 H 20 134/85 96 04/04/25 01:34 101 H 20 142/76 H 99 04/04/25 01:23 111 H 22 152/87 H 96 04/04/25 00:41 89 L 04/04/25 00:34 134 H 30 H 141/117 H 94 04/04/25 00:12 128 H 04/04/25 00:07 135 H 34 H 95 04/03/25 23:58 36.5 C 128 H 36 H 137/92 89 L Pulse Ox O2 Del Method O2 Del Method O2 Flow Rate FiO2 04/04/25 07:50 Room Air 04/04/25 07:39 40 04/04/25 07:07 BiPAP 40 04/04/25 05:13 04/04/25 04:34 BiPAP 40 04/04/25 03:45 95 BiPAP 04/04/25 03:43 BiPAP 40 04/04/25 03:12 BiPAP 40 04/04/25 02:02 40 04/04/25 02:00 BiPAP 40 04/04/25 01:34 BiPAP 40 04/04/25 01:23 BiPAP 40 04/04/25 00:41 Nasal Cannula, BiPAP 6 04/04/25 00:34 BiPAP 100 04/04/25 00:12 04/04/25 00:07 BiPAP 04/03/25 23:58 Nasal Cannula 6 Laboratory Results 04/04/25 00:16 04/04/25 00:16 PG Care Time/CCT Total # of Minutes Spent Total Time Spent with Patient: Total time spent is greater than 50% in coordination of care (as documented) at patient's floor/unit and/or counseling patient: Coding Level of Care Code 07299 INT INP/OBS CARE 3/75MIN Diagnoses Acute exacerbation of chronic obstructive pulmonary disease (COPD) J44.1 Acute and chronic respiratory failure with hypoxia J96.21 Chronic bronchitis J42 Sleep apnea G47.30
[2025-04-04] MEDS: FAMOTIDINE 20 MG TAB PO SCH (09:00)
[2025-04-04] MEDS: DOCUSATE SODIUM 100 MG CAP PO PRN (09:00)
[2025-04-04] MEDS: CLOPIDOGREL BISULFATE 75 MG TAB PO SCH (09:00)
[2025-04-04] MEDS: ROFLUMILAST 500 MCG TAB PO SCH (09:00)
[2025-04-04] MEDS: ATORVASTATIN 40 MG TAB PO SCH (09:00)
[2025-04-04] MEDS: DIVALPROEX EXTENDED RELEASE 250 MG TABCR PO SCH (09:00)
[2025-04-04] MEDS: guaiFENesin 600 MG TABCR PO SCH (09:01)
[2025-04-04] MEDS: FLUTICASONE/VILANTEROL 200/25MCG 14 PUFFS/INHALER INH SCH (09:01)
[2025-04-04 09:51] LABS: iSTAT Art Bld Gas Base Excess 2.0 meg/L (-9-1.8)
--- NOTE | 2025-04-04 11:47 | Electrocardiogram Report ---
Test Reason : Blood Pressure : */* mmHG Vent. Rate : 119 BPM Atrial Rate : 119 BPM P-R Int : 172 ms QRS Dur : 120 ms QT Int : 320 ms P-R-T Axes : -11 -28 -9 degrees QTcB Int : 450 ms Poor data quality, interpretation may be adversely affected Sinus tachycardia Low voltage QRS Right bundle branch block Abnormal ECG Confirmed by Joao Jean ([id number]) on 04/04/2025 11:47:20 AM Referred By: REFERRED SELF Confirmed By: Joao Jean
--- NOTE | 2025-04-04 12:41 | Hospitalist Progress Note ---
<Statement entered by Demi Noguera MD - 04/04/25 17:56> Agree with below. He was treated for acute respiratory with hypoxia, present on admission Date of Service April 04, 2025 Assessment & Plan (1) COPD exacerbation: (2) BPH (benign prostatic hyperplasia): (3) GERD (gastroesophageal reflux disease): (4) Hypertension: (5) Hyperlipidemia: (6) Bipolar disorder, unspecified: Plan 69yo male with chronic hypoxic respiratory failure, COPD with chronic bronchitis presenting with actue exacerbation of COPD. Patient follows with Pulmonary at [place] as well as [facility] and is being considered for transplant. He reports 2 weeks of progressive dyspnea. Presented this evening in respiratory distress, acute hypoxic respiratory failure requiring BiPAP #COPD exacerbation -Admit to PCU -Continue BiPAP, wean as tolerated -Goal saturation 88-92 -DuoNeb q 4 hours scheduled -Albuterol q 2 hours PRN -Continue Fluticasone/Vilanterol -Hypertonic nebs BID -Guaifenesin 1200mg po BID -Solumedrol 40mg IV BID -Azithromycin and Ceftriaxone -Check Procalcitonin -Continue Roflumilast -Pulmonology consulted, appreciate assistance -Transitioned off BiPAP and is now on nasal cannula O2 2L -Reached out to [facility], awaiting call back to determine if pt can be transferred to [facility]. #Hypertension -Continue Amlodipine 5mg po daily -Continue Carvedilol 12.5mg po BID -Monitor #Hyperlipidemia -Continue Atorvastatin -Continue Zetia #Bipolar/Mental health - stable -Continue Depakote -Continue Olanzapine 5mg po qHS #GERD -Continue Famotidine -Continue Protonix 40mg po daily #Adrenal insufficiency - patient on Hydrocortisone 15mg po qAM and 5mg po daily at 14:00 -Will hold hydrocortisone while patient is on Solumedrol Continued inpatient stay. No changes in care plan at this time. Await call back from [facility]. Admission and Anticipated Discharge Date Admission Date: April 04, 2025 Tyler Rome is a 69 yo M admitted overnight for acute exacerbation of COPD with hypercapnia. He reports being on the lung transplant list. He is following with transplant team at [facility]. He reports that he was told by the human resources operations coordinator that if he was to be admitted that they would want him transferred to [facility]. He also follows locally with Dr. Palm. Currently he is requiring BiPAP. He is beginning to cough but is unable to bring anything up. He continues to have significant dyspnea w/o use of bipap mask. Review of Systems 2 Review of Systems: All systems reviewed and are unremarkable except as noted in HPI and below. Denies fever, chills, fatigue, headache, nasal congestion, sore throat, chest pain, palpitations, orthopnea, PND, abdominal pain, n/v/d, constipation, dysuria, hematuria, frequency, back pain, joint pain or swelling, easy bruising or bleeding, skin lesions or rashes. Physical Exam 2 Physical Exam: GENERAL: 69 yo well-nourished WM. A&O x3. Mild resp distress which improves once bipap mask back on. LUNGS: Poor air exchange with moderate expiratory wheezing noted throughout. CARDIOVASCULAR: Regular rate and rhythm. EXTREMITIES: No edema. Non-tender. Peripheral pulses +2/4. SKIN: Warm, dry, intact. No rashes or lesions. Results & Data Results & Data Vital Signs (Past 12 Hours) Vital Signs Temp Pulse Pulse Resp BP BP Pulse Ox 04/04/25 11:52 36.7 C 66 18 114/70 94 04/04/25 10:48 04/04/25 10:20 75 16 94 04/04/25 10:18 75 16 94 04/04/25 07:50 36.8 C 85 18 142/88 H 96 04/04/25 07:39 85 18 95 04/04/25 07:07 82 22 98 04/04/25 05:13 86 04/04/25 04:34 04/04/25 03:45 04/04/25 03:43 36.8 C 87 22 124/68 95 04/04/25 03:12 86 24 126/73 97 04/04/25 02:02 125 H 33 H 95 04/04/25 02:00 97 H 20 134/85 96 04/04/25 01:34 101 H 20 142/76 H 99 04/04/25 01:23 111 H 22 152/87 H 96 04/04/25 00:41 89 L Pulse Ox O2 Del Method O2 Del Method O2 Flow Rate FiO2 04/04/25 11:52 Nasal Cannula 2 04/04/25 10:48 Nasal Cannula, BiPAP 2 04/04/25 10:20 40 04/04/25 10:18 BiPAP 40 04/04/25 07:50 Room Air 04/04/25 07:39 40 04/04/25 07:07 BiPAP 40 04/04/25 05:13 04/04/25 04:34 BiPAP 40 04/04/25 03:45 95 BiPAP 04/04/25 03:43 BiPAP 40 04/04/25 03:12 BiPAP 40 04/04/25 02:02 40 04/04/25 02:00 BiPAP 40 04/04/25 01:34 BiPAP 40 04/04/25 01:23 BiPAP 40 04/04/25 00:41 Nasal Cannula, BiPAP 6 Laboratory Results 04/04/25 00:16 04/04/25 00:16 PG Care Time/CCT Total # of Minutes Spent Total Time Spent with Patient: Total time spent is greater than 50% in coordination of care (as documented) at patient's floor/unit and/or counseling patient: 45 minutes Coding Level of Care Code None Diagnoses COPD exacerbation J44.1 BPH (benign prostatic hyperplasia) N40.0 GERD (gastroesophageal reflux disease) K21.9 Hypertension I10 Hyperlipidemia E78.5 Bipolar disorder, unspecified F31.9
[2025-04-04] MEDS: UMECLIDINIUM BROMIDE 62.5MCG/BLISTER 7 PUFFS/INHALER INH SCH (12:53)
[2025-04-04] MEDS: DOXYCYCLINE HYCLATE 100 MG in DEXTROSE 5% MINI-B 100 ML IV SCH (13:22)
[2025-04-04] MEDS: FORMOTEROL 20 MCG/2 ML VIAL NEB SCH (19:35)
[2025-04-04] MEDS: BUDESONIDE 0.5 MG/2 ML VIAL (PULMICORT) NEB SCH (19:35)
[2025-04-04] MEDS: EZETIMIBE 10 MG TAB PO SCH (21:42)
[2025-04-04] MEDS: TAMSULOSIN HCL 0.4 MG CAP PO SCH (21:43)
[2025-04-05 06:07] LABS: Hematocrit (blood only) 33.0 % (42.0-52.0); Hemoglobin 11.2 g/dl (14.0-18.0); Mean Corpuscular Hemoglobin 28.0 pg (25.0-34.0); Mean Corpuscular Volume 82.5 fL (80.0-100.0); Platelet Count 160 K/uL (130-400); RDW Standard Deviation 39.8 fL (36.4-46.3); Red Blood Count 4.00 M/uL (4.70-6.10); White Blood Count 13.45 K/ul (4.8-10.8)
[2025-04-05 06:16] LABS: Anion Gap 7.0 (3-11); Blood Urea Nitrogen 32.0 mg/dl (6-23); Calcium 8.6 mg/dl (8.6-10.3); Carbon Dioxide 27.0 mmol/L (21-32); Chloride 104.0 mmol/L (98-107); Creatinine Clr Calc Pharmacy 77.8 ml/min; Glucose 128.0 mg/dl (70-99(Fasting)); Potassium 4.7 mmol/L (3.5-5.1); Sodium 138.0 mmol/L (136-145)
--- NOTE | 2025-04-05 08:10 | Pulmonology Progress Note ---
Date of Service April 05, 2025 Assessment & Plan (1) Acute exacerbation of chronic obstructive pulmonary disease (COPD): (2) Acute and chronic respiratory failure with hypoxia: (3) Chronic bronchitis: (4) Sleep apnea: Plan CT chest 03/15/2025 personally reviewed: Severe centrilobular emphysema appreciated bilaterally Left upper lobe 6 mm peripheral pulmonary nodule (previously 8 mm) No significant mediastinal lymphadenopathy Motion degraded study Spirometry 05/21/2024 personally reviewed: Severe obstructive lung dysfunction FVC 3.77 L 73%, FEV1 1.15 L 46%, FEV1/FVC 31% PFT 01/22/2021 personally reviewed: Very severe obstructive lung dysfunction, insignificant bronchodilator response FVC 4.27 L 110%, FEV1 0.96 L 36%, FEV1/FVC 23%, TLC 100%, RV 61%, RV/TLC ratio 24, DLCO 63%, DLCO/VA 65% 2D echo 10/17/2024: EF 65 to 70%, grade 1 diastolic dysfunction, RV normal in size and function -- Acute exacerbation of COPD with emphysema and chronic bronchitis Gold class E > 77-sknu-iovp smoking history, quit in 2009 On 2 L oxygen at baseline at home Respiratory BioFire negative for everything on 04/04/2025 At home on high-dose Symbicort along with Spiriva on a daily basis. 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 I did explain to him that the Theophylline therapeutic window is small. I tried to get the patient's Dupixent from the clinic but unfortunately it was denied Patient is also going to [facility] for lung transplant evaluation and is on transplant list Hypertonic saline nebulized and Mucinex as needed for chronic bronchitis and chest congestion NIOX 07/13/2024: 6, low --MARIA T On CPAP at home -- Ex-smoker > 40-nahr-[id number] smoking history, quit in 2009 Encouraged to continue abstinence from smoking Continue with lung screening, next one will be 02/2026 CT chest 10/23/2024 personally reviewed: Severe centrilobular and paraseptal emphysema appreciated bilaterally No significant mediastinal lymphadenopathy --History of lupus in one of the sisters Plan: Nebulized bronchodilators while in the hospital Continue with hypertonic saline, Mucinex and flutter valve Add Mucomyst nebulized to the regimen Continue with doxycycline for 5 days and then go back to azithromycin Tfexdb-Dcegozaxw-Wcncms Please note the above document was generated using voice recognition software. It may contain grammatical, syntax or spelling errors.Any formal questions or concerns about the content, text or information contained within the body of this dictation should be directly addressed to the provider for clarification. Admission and Anticipated Discharge Date Admission Date: April 04, 2025 Subjective Patient was seen and examined at bedside. No acute distress, no adverse events overnight He had just returned from the bathroom. He was saturating 97% on 2 L nasal cannula, I went down to 1 and half liter. Stated that he is bringing up phlegm but still complaining of chest congestion Denies any hemoptysis Fair appetite No nausea vomiting Review of Systems 2 Review of Systems: All systems reviewed & are unremarkable except as noted in Subjective Physical Exam 2 Physical Exam: Constitutional: No acute distress HEENT: EOMI, PERRLA Respiratory system: Decreased air entry bilaterally, positive expiratory wheeze bilaterally, positive rhonchi, no crackles CVS: S1-S2 positive, no murmurs or gallops, distant heart sounds Abdomen: Soft, nontender, nondistended, positive bowel sounds x4 Extremities: +2 pulses bilaterally radialis/ dorsalis pedis, no cyanosis, minimal pitting edema bilateral lower extremity Neuro: Awake alert oriented x3 Psych: Normal mood and affect G/U: No Garcia Skin: no rashes, warm and dry Lymphatic: no cervical or axillary lymphadenopathy Results & Data Results & Data Vital Signs (Past 12 Hours) Vital Signs Temp Pulse Pulse Resp BP Pulse Ox O2 Del Method 04/05/25 07:54 36.6 C 57 L 19 123/72 96 BiPAP 04/05/25 07:08 60 18 98 BiPAP 04/05/25 03:01 36.5 C 61 20 117/67 98 BiPAP 04/05/25 02:04 82 20 98 04/05/25 02:04 82 98 BiPAP 04/05/25 00:47 76 04/04/25 23:38 36.3 C L 67 20 111/65 96 BiPAP 04/04/25 22:32 Nasal Cannula, BiPAP 04/04/25 22:18 87 18 99 04/04/25 22:18 87 99 BiPAP 04/04/25 21:10 81 17 100 04/04/25 21:10 BiPAP FiO2 04/05/25 07:54 04/05/25 07:08 28 04/05/25 03:01 04/05/25 02:04 28 04/05/25 02:04 28 04/05/25 00:47 04/04/25 23:38 04/04/25 22:32 04/04/25 22:18 28 04/04/25 22:18 28 04/04/25 21:10 28 04/04/25 21:10 Laboratory Results 04/05/25 05:25 04/05/25 05:25 PG Care Time/CCT Total # of Minutes Spent Total Time Spent with Patient: Total time spent is greater than 50% in coordination of care (as documented) at patient's floor/unit and/or counseling patient: Coding Level of Care Code 87798 SUB INP/OBS CARE 2/35MIN Diagnoses Acute exacerbation of chronic obstructive pulmonary disease (COPD) J44.1 Acute and chronic respiratory failure with hypoxia J96.21 Chronic bronchitis J42 Sleep apnea G47.30
[2025-04-05] MEDS ORDERED: AZITHROMYCIN 250 MG TAB PO SCH (09:00)
--- NOTE | 2025-04-05 13:08 | Hospitalist Progress Note ---
Date of Service April 05, 2025 Assessment & Plan (1) COPD exacerbation: (2) BPH (benign prostatic hyperplasia): (3) GERD (gastroesophageal reflux disease): (4) Hypertension: (5) Hyperlipidemia: (6) Bipolar disorder, unspecified: Plan 69yo male with chronic hypoxic respiratory failure, COPD with chronic bronchitis presenting with actue exacerbation of COPD. Patient follows with Pulmonary at [place] as well as [facility] and is being considered for transplant. He reports 2 weeks of progressive dyspnea. Presented this evening in respiratory distress, acute hypoxic respiratory failure requiring BiPAP #COPD exacerbation -Admit to PCU -Continue BiPAP, wean as tolerated -Goal saturation 88-92 -DuoNeb q 4 hours scheduled -Albuterol q 2 hours PRN -Continue Fluticasone/Vilanterol -Hypertonic nebs BID -Guaifenesin 1200mg po BID -Solumedrol 40mg IV BID -Continue Ceftriaxone, changed Zithro to Doxycycline -Continue Roflumilast -Pulmonology consulted, appreciate assistance -Transitioned off BiPAP and is now on nasal cannula O2 2L -Reached out to [facility], discussed case with Dr. Gallo, fingernail sculptor at [facility] [place], did not feel that patient required transfer at this time, recommended continued tx at [facility] and to call back if pt should decompensate to reconsider transfer. Pt agreed with plan. #Hypertension -Continue Amlodipine 5mg po daily -Continue Carvedilol 12.5mg po BID -Monitor #Hyperlipidemia -Continue Atorvastatin -Continue Zetia #Bipolar/Mental health - stable -Continue Depakote -Continue Olanzapine 5mg po qHS #GERD -Continue Famotidine -Continue Protonix 40mg po daily #Adrenal insufficiency - patient on Hydrocortisone 15mg po qAM and 5mg po daily at 14:00 -Will hold hydrocortisone while patient is on Solumedrol Continued inpatient stay, anticipate home in 24-48 hours if continues to demonstrate clinical improvement. Admission and Anticipated Discharge Date Admission Date: April 04, 2025 Tyler Rome was seen on rounds this morning. He reports that he is not quite at his baseline but feels that he is improving. He is able to move more air and is mobilizing phlegm. Denies cp. He is down to 1.5-2L of nasal cannula which is his baseline oxygen requirements at home. Seen by pulm this AM, anticipates probably home tomorrow. Review of Systems 2 Review of Systems: All systems reviewed and are unremarkable except as noted in HPI and below. Denies fever, chills, fatigue, headache, nasal congestion, sore throat, chest pain, palpitations, orthopnea, PND, abdominal pain, n/v/d, constipation, dysuria, hematuria, frequency, back pain, joint pain or swelling, easy bruising or bleeding, skin lesions or rashes. Physical Exam 2 Physical Exam: GENERAL: 69 yo well-nourished WM. A&O x3. No distress. LUNGS: Improved air exchange with expiratory wheezes present bilaterally and rhonchi. No crackles. CARDIOVASCULAR: Regular rate and rhythm. EXTREMITIES: No edema. Non-tender. Peripheral pulses +2/4. SKIN: Warm, dry, intact. No rashes or lesions. Results & Data Results & Data Vital Signs (Past 12 Hours) Vital Signs Temp Pulse Pulse Resp BP Pulse Ox O2 Del Method 04/05/25 11:48 36.5 C 62 18 132/75 62 L Nasal Cannula 04/05/25 11:32 Nasal Cannula 04/05/25 11:21 64 18 96 Nasal Cannula 04/05/25 07:54 36.6 C 57 L 19 123/72 96 BiPAP 04/05/25 07:08 60 18 98 BiPAP 04/05/25 03:01 36.5 C 61 20 117/67 98 BiPAP 04/05/25 02:04 82 20 98 04/05/25 02:04 82 98 BiPAP O2 Flow Rate FiO2 04/05/25 11:48 04/05/25 11:32 2 04/05/25 11:21 2 04/05/25 07:54 04/05/25 07:08 28 04/05/25 03:01 04/05/25 02:04 28 04/05/25 02:04 28 Laboratory Results 04/05/25 05:25 04/05/25 05:25 PG Care Time/CCT Total # of Minutes Spent Total Time Spent with Patient: Total time spent is greater than 50% in coordination of care (as documented) at patient's floor/unit and/or counseling patient: 36 minutes Coding Level of Care Code 67073 SUB INP/OBS CARE 2/35MIN Diagnoses COPD exacerbation J44.1 BPH (benign prostatic hyperplasia) N40.0 GERD (gastroesophageal reflux disease) K21.9 Hypertension I10 Hyperlipidemia E78.5 Bipolar disorder, unspecified F31.9
[2025-04-05] MEDS: ACETYLCYSTEINE 20% INHAL SOLN 4ML ***DISPENSED BY RESP. INH SCH (14:51)
--- NOTE | 2025-04-06 07:41 | Pulmonology Progress Note ---
Date of Service April 06, 2025 Assessment & Plan (1) Acute exacerbation of chronic obstructive pulmonary disease (COPD): (2) Acute and chronic respiratory failure with hypoxia: (3) Chronic bronchitis: (4) Sleep apnea: Plan CT chest 03/15/2025 personally reviewed: Severe centrilobular emphysema appreciated bilaterally Left upper lobe 6 mm peripheral pulmonary nodule (previously 8 mm) No significant mediastinal lymphadenopathy Motion degraded study Spirometry 05/21/2024 personally reviewed: Severe obstructive lung dysfunction FVC 3.77 L 73%, FEV1 1.15 L 46%, FEV1/FVC 31% PFT 01/22/2021 personally reviewed: Very severe obstructive lung dysfunction, insignificant bronchodilator response FVC 4.27 L 110%, FEV1 0.96 L 36%, FEV1/FVC 23%, TLC 100%, RV 61%, RV/TLC ratio 24, DLCO 63%, DLCO/VA 65% 2D echo 10/17/2024: EF 65 to 70%, grade 1 diastolic dysfunction, RV normal in size and function -- Acute exacerbation of COPD with emphysema and chronic bronchitis Gold class E > 82-utin-btmq smoking history, quit in 2009 On 2 L oxygen at baseline at home Respiratory BioFire negative for everything on 04/04/2025 At home on high-dose Symbicort along with Spiriva on a daily basis. 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 I did explain to him that the Theophylline therapeutic window is small. I tried to get the patient's Dupixent from the clinic but unfortunately it was denied Patient is also going to [facility] for lung transplant evaluation and is on transplant list Hypertonic saline nebulized and Mucinex as needed for chronic bronchitis and chest congestion NIOX 07/13/2024: 6, low --MARIA T On CPAP at home -- Ex-smoker > 24-dybq-wyzq smoking history, quit in 2009 Encouraged to continue abstinence from smoking Continue with lung screening, next one will be 02/2026 CT chest 10/23/2024 personally reviewed: Severe centrilobular and paraseptal emphysema appreciated bilaterally No significant mediastinal lymphadenopathy --History of lupus in one of the sisters Plan: Nebulized bronchodilators while in the hospital Continue with hypertonic saline, Mucomyst, Mucinex and flutter valve Continue with doxycycline for 5 days and then go back to azithromycin Hyijfl-Hxawslrni-Hvmwgx Please note the above document was generated using voice recognition software. It may contain grammatical, syntax or spelling errors.Any formal questions or concerns about the content, text or information contained within the body of this dictation should be directly addressed to the provider for clarification. Admission and Anticipated Discharge Date Admission Date: April 04, 2025 Subjective Patient seen and examined at bedside. No acute distress, no adverse events overnight He was saturating 99% at rest on the bed on 2 L nasal cannula, I went down to 1 L Overall he says he is feeling better compared to how he came to the hospital but still not back to his baseline Coughing up some phlegm still having issues with congestion Fair appetite Review of Systems 2 Review of Systems: All systems reviewed & are unremarkable except as noted in Subjective Physical Exam 2 Physical Exam: Constitutional: No acute distress HEENT: EOMI, PERRLA Respiratory system: Decreased air entry bilaterally, positive expiratory wheeze bilaterally, positive rhonchi, no crackles CVS: S1-S2 positive, no murmurs or gallops, distant heart sounds Abdomen: Soft, nontender, nondistended, positive bowel sounds x4 Extremities: +2 pulses bilaterally radialis/ dorsalis pedis, no cyanosis, no edema Neuro: Awake alert oriented x3 Psych: Normal mood and affect G/U: No Garcia Skin: no rashes, warm and dry Lymphatic: no cervical or axillary lymphadenopathy Results & Data Results & Data Vital Signs (Past 12 Hours) Vital Signs Temp Pulse Pulse Resp BP Pulse Ox O2 Del Method 04/06/25 07:16 62 18 98 Nasal Cannula 04/06/25 04:21 36.4 C L 55 L 17 130/71 96 BiPAP 04/06/25 02:26 56 L 22 98 04/06/25 02:26 56 L 22 95 BiPAP 04/06/25 00:32 62 04/06/25 00:32 Nasal Cannula, BiPAP 04/06/25 00:07 36.4 C L 55 L 18 131/71 96 BiPAP 04/05/25 22:08 77 18 98 04/05/25 22:08 77 19 98 BiPAP 04/05/25 20:12 36.6 C 63 18 144/80 H 95 Nasal Cannula O2 Flow Rate FiO2 04/06/25 07:16 2 04/06/25 04:21 28 04/06/25 02:26 28 04/06/25 02:26 28 04/06/25 00:32 04/06/25 00:32 28 04/06/25 00:07 28 04/05/25 22:08 28 04/05/25 22:08 28 04/05/25 20:12 2 Laboratory Results 04/05/25 05:25 04/05/25 05:25 PG Care Time/CCT Total # of Minutes Spent Total Time Spent with Patient: Total time spent is greater than 50% in coordination of care (as documented) at patient's floor/unit and/or counseling patient: Coding Level of Care Code 17622 SUB INP/OBS CARE 2/35MIN Diagnoses Acute exacerbation of chronic obstructive pulmonary disease (COPD) J44.1 Acute and chronic respiratory failure with hypoxia J96.21 Chronic bronchitis J42 Sleep apnea G47.30
--- NOTE | 2025-04-06 10:52 | Hospitalist Progress Note ---
Date of Service April 06, 2025 Assessment & Plan (1) COPD exacerbation: (2) BPH (benign prostatic hyperplasia): (3) GERD (gastroesophageal reflux disease): (4) Hypertension: (5) Hyperlipidemia: (6) Bipolar disorder, unspecified: Plan 69yo male with chronic hypoxic respiratory failure, COPD with chronic bronchitis presenting with actue exacerbation of COPD. Patient follows with Pulmonary at [place] as well as [facility] and is being considered for transplant. He reports 2 weeks of progressive dyspnea. Presented this evening in respiratory distress, acute hypoxic respiratory failure requiring BiPAP #COPD exacerbation -Admit to PCU -Continue BiPAP, wean as tolerated -Goal saturation 88-92 -DuoNeb q 4 hours scheduled -Albuterol q 2 hours PRN -Continue Fluticasone/Vilanterol -Hypertonic nebs BID -Guaifenesin 1200mg po BID -Solumedrol 40mg IV BID -Continue Ceftriaxone, changed Zithro to Doxycycline x5 days then resume zithro MWF -Continue Roflumilast -Pulmonology consulted, appreciate assistance -Transitioned off BiPAP and is now on nasal cannula O2 2L -Reached out to [facility], discussed case with Dr. Gallo, wastewater project manager at [facility] [place], did not feel that patient required transfer at this time, recommended continued tx at [facility] and to call back if pt should decompensate to reconsider transfer. Pt agreed with plan. -Repeat labs in AM, add chest PT -Pulm added mucomyst nebs BID, which I agree #Hypertension -Continue Amlodipine 5mg po daily -Continue Carvedilol 12.5mg po BID -Monitor #Hyperlipidemia -Continue Atorvastatin -Continue Zetia #Bipolar/Mental health - stable -Continue Depakote -Continue Olanzapine 5mg po qHS #GERD -Continue Famotidine -Continue Protonix 40mg po daily #Adrenal insufficiency - patient on Hydrocortisone 15mg po qAM and 5mg po daily at 14:00 -Will hold hydrocortisone while patient is on Solumedrol Continued inpatient stay, anticipate home in 24-48 hours if continues to demonstrate clinical improvement. Admission and Anticipated Discharge Date Admission Date: April 04, 2025 Tyler Rome was seen on rounds this morning. He reports that he is not quite at his baseline but feels that he is not much improved from yesterday, if at all. He was not able to sleep last night. He is now starting to "spit up" some brown- tinged sputum. No chest pain. Still quite winded with minimal exertion. Review of Systems Review of Systems: All systems reviewed and are unremarkable except as noted in HPI and below. Denies fever, chills, fatigue, headache, nasal congestion, sore throat, chest pain, palpitations, orthopnea, PND, abdominal pain, n/v/d, constipation, dysuria, hematuria, frequency, back pain, joint pain or swelling, easy bruising or bleeding, skin lesions or rashes. Physical Exam Physical Exam: GENERAL: 69 yo well-nourished WM. A&O x3. No distress. LUNGS: Decreased air exchange with expiratory wheezes present bilaterally. No crackles. CARDIOVASCULAR: Regular rate and rhythm. EXTREMITIES: No edema. Non-tender. Peripheral pulses +2/4. SKIN: Warm, dry, intact. No rashes or lesions. Results & Data Results & Data Vital Signs (Past 12 Hours) Vital Signs Temp Pulse Pulse Resp BP Pulse Ox O2 Del Method 04/06/25 07:42 36.4 C L 55 L 20 144/76 H 98 Nasal Cannula 04/06/25 07:16 62 18 98 Nasal Cannula 04/06/25 04:21 36.4 C L 55 L 17 130/71 96 BiPAP 04/06/25 02:26 56 L 22 98 04/06/25 02:26 56 L 22 95 BiPAP 04/06/25 00:32 62 04/06/25 00:32 Nasal Cannula, BiPAP 04/06/25 00:07 36.4 C L 55 L 18 131/71 96 BiPAP O2 Flow Rate FiO2 04/06/25 07:42 2.0 04/06/25 07:16 2 04/06/25 04:21 28 04/06/25 02:26 28 04/06/25 02:26 28 04/06/25 00:32 04/06/25 00:32 28 04/06/25 00:07 28 PG Care Time/CCT Total # of Minutes Spent Total Time Spent with Patient: Total time spent is greater than 50% in coordination of care (as documented) at patient's floor/unit and/or counseling patient: 37 minutes Coding Level of Care Code 58632 SUB INP/OBS CARE 2/35MIN Diagnoses COPD exacerbation J44.1 BPH (benign prostatic hyperplasia) N40.0 GERD (gastroesophageal reflux disease) K21.9 Hypertension I10 Hyperlipidemia E78.5 Bipolar disorder, unspecified F31.9
--- NOTE | 2025-04-07 07:49 | Pulmonology Progress Note ---
Date of Service April 07, 2025 Assessment & Plan (1) Acute exacerbation of chronic obstructive pulmonary disease (COPD): (2) Acute and chronic respiratory failure with hypoxia: (3) Chronic bronchitis: (4) Sleep apnea: Plan CT chest 03/15/2025 personally reviewed: Severe centrilobular emphysema appreciated bilaterally Left upper lobe 6 mm peripheral pulmonary nodule (previously 8 mm) No significant mediastinal lymphadenopathy Motion degraded study Spirometry 05/21/2024 personally reviewed: Severe obstructive lung dysfunction FVC 3.77 L 73%, FEV1 1.15 L 46%, FEV1/FVC 31% PFT 01/22/2021 personally reviewed: Very severe obstructive lung dysfunction, insignificant bronchodilator response FVC 4.27 L 110%, FEV1 0.96 L 36%, FEV1/FVC 23%, TLC 100%, RV 61%, RV/TLC ratio 24, DLCO 63%, DLCO/VA 65% 2D echo 10/17/2024: EF 65 to 70%, grade 1 diastolic dysfunction, RV normal in size and function -- Acute exacerbation of COPD with emphysema and chronic bronchitis Gold class E > 90-pfqa-dvju smoking history, quit in 2009 On 2 L oxygen at baseline at home Respiratory BioFire negative for everything on 04/04/2025 At home on high-dose Symbicort along with Spiriva on a daily basis. 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 I did explain to him that the Theophylline therapeutic window is small. I tried to get the patient's Dupixent from the clinic but unfortunately it was denied Patient is also going to [facility], [place], operated by [facility] for lung transplant evaluation and is on transplant list Hypertonic saline nebulized and Mucinex as needed for chronic bronchitis and chest congestion NIOX 07/13/2024: 6, low --MARIA T On CPAP at home -- Ex-smoker > 07-uyta-[id number] smoking history, quit in 2009 Encouraged to continue abstinence from smoking Continue with lung screening, next one will be 02/2026 CT chest 10/23/2024 personally reviewed: Severe centrilobular and paraseptal emphysema appreciated bilaterally No significant mediastinal lymphadenopathy --History of lupus in one of the sisters Plan: Nebulized bronchodilators while in the hospital Continue with hypertonic saline, Mucomyst, Mucinex and flutter valve Recommend adding Mucomyst nebulized to patient's regimen of nebulizers at home Continue with doxycycline for 5 days and then go back to azithromycin Oysxtu-Choldgxfo-Ymmrex Okay to transition Solu-Medrol to prednisone 40 mg for 3 days followed by 20 mg for 4 days starting tomorrow No further recommendation from pulmonary perspective, will sign off Please call directly with any questions Please note the above document was generated using voice recognition software. It may contain grammatical, syntax or spelling errors.Any formal questions or concerns about the content, text or information contained within the body of this dictation should be directly addressed to the provider for clarification. Admission and Anticipated Discharge Date Admission Date: April 04, 2025 Subjective Patient seen and examined at bedside. No acute distress, no adverse events overnight He was saturating 95 to 96% on room air. He says he is finally bringing up some phlegm. Denies any hemoptysis No chest pain, no nausea or vomiting Appetite is fair. Review of Systems 2 Review of Systems: All systems reviewed & are unremarkable except as noted in Subjective Physical Exam 2 Physical Exam: Constitutional: No acute distress HEENT: EOMI, PERRLA Respiratory system: Decreased air entry bilaterally, positive expiratory wheeze bilaterally, right> left, positive rhonchi, no crackles CVS: S1-S2 positive, no murmurs or gallops, distant heart sounds Abdomen: Soft, nontender, nondistended, positive bowel sounds x4 Extremities: +2 pulses bilaterally radialis/ dorsalis pedis, no cyanosis, no edema Neuro: Awake alert oriented x3 Psych: Normal mood and affect G/U: No Garcia Skin: no rashes, warm and dry Lymphatic: no cervical or axillary lymphadenopathy Results & Data Results & Data Vital Signs (Past 12 Hours) Vital Signs Temp Pulse Pulse Pulse Resp BP Pulse Ox 04/07/25 07:14 80 18 98 04/07/25 03:00 04/07/25 02:44 59 L 18 97 04/07/25 01:42 36.4 C L 58 L 18 116/83 97 04/06/25 23:45 52 L 04/06/25 22:55 58 L 20 98 04/06/25 21:35 04/06/25 20:16 36.6 C 55 L 18 142/72 H 96 04/06/25 20:01 88 17 96 Pulse Ox O2 Del Method O2 Del Method O2 Flow Rate FiO2 04/07/25 07:14 Nasal Cannula 2 04/07/25 03:00 98 BiPAP 04/07/25 02:44 28 04/07/25 01:42 BiPAP 28 04/06/25 23:45 04/06/25 22:55 28 04/06/25 21:35 Nasal Cannula, BiPAP 28 04/06/25 20:16 Nasal Cannula 2 04/06/25 20:01 Nasal Cannula 2 Laboratory Results 04/05/25 05:25 04/05/25 05:25 PG Care Time/CCT Total # of Minutes Spent Total Time Spent with Patient: Total time spent is greater than 50% in coordination of care (as documented) at patient's floor/unit and/or counseling patient: Coding Level of Care Code 59147 SUB INP/OBS CARE 2/35MIN Diagnoses Acute exacerbation of chronic obstructive pulmonary disease (COPD) J44.1 Acute and chronic respiratory failure with hypoxia J96.21 Chronic bronchitis J42 Sleep apnea G47.30
[2025-04-07 08:10] LABS: Hematocrit (blood only) 37.2 % (42.0-52.0); Hemoglobin 12.9 g/dl (14.0-18.0); Immature Granulocytes # (auto) 0.10 K/uL (0.01-0.20); Immature Granulocytes % (auto) 1.0 %; Mean Corpuscular Hemoglobin 28.2 pg (25.0-34.0); Mean Corpuscular Volume 81.2 fL (80.0-100.0); Platelet Count 191 K/uL (130-400); RDW Standard Deviation 39.0 fL (36.4-46.3); Red Blood Count 4.58 M/uL (4.70-6.10); White Blood Count 9.71 K/ul (4.8-10.8)
[2025-04-07 08:26] LABS: Anion Gap 7.0 (3-11); Blood Urea Nitrogen 37.0 mg/dl (6-23); Calcium 8.8 mg/dl (8.6-10.3); Carbon Dioxide 28.0 mmol/L (21-32); Chloride 104.0 mmol/L (98-107); Creatinine Clr Calc Pharmacy 86.5 ml/min; Glucose 123.0 mg/dl (70-99(Fasting)); Potassium 4.5 mmol/L (3.5-5.1); Sodium 139.0 mmol/L (136-145)
--- NOTE | 2025-04-07 11:55 | Hospitalist Progress Note ---
Date of Service April 07, 2025 Assessment & Plan (1) COPD exacerbation: (2) BPH (benign prostatic hyperplasia): (3) GERD (gastroesophageal reflux disease): (4) Hypertension: (5) Hyperlipidemia: (6) Bipolar disorder, unspecified: Plan 69yo male with chronic hypoxic respiratory failure, COPD with chronic bronchitis presenting with acute exacerbation of COPD. Patient follows with Pulmonary at [place] as well as [facility] and is being considered for transplant. He reports 2 weeks of progressive dyspnea. Presented this evening in respiratory distress, acute hypoxic respiratory failure requiring BiPAP #COPD exacerbation -Admit to PCU -Continue BiPAP, wean as tolerated -Goal saturation 88-92 -DuoNeb q 4 hours scheduled -Albuterol q 2 hours PRN -Continue Fluticasone/Vilanterol -Hypertonic nebs BID -Guaifenesin 1200mg po BID -Solumedrol 40mg IV BID -changed Zithro to Doxycycline x5 days then resume zithro MWF, I am unclear on the rational for ceftriaxone and will discontinue if procalcitonin added to AM labs remains negative -Continue Roflumilast -Pulmonology consulted, appreciate assistance -Transitioned off BiPAP and is now on nasal cannula O2 2L -Reached out to [facility], discussed case with Dr. Gallo, material handler loader at [facility] [place], did not feel that patient required transfer at this time, recommended continued tx at [facility] and to call back if pt should decompensate to reconsider transfer. Pt agreed with plan. -Appreciate ongoing pulmonary management #Hypertension -Continue Amlodipine 5mg po daily -I am unclear why he is on carvedilol - previously reduced to 6.25mg PO BID a year ago due to hypotension ([facility]), given severity of COPD and bradycardia recommend decreasing this to 6.25mg PO BID with eventual goal of discontinuation and using something else for his BP as necessary #Hyperlipidemia -Continue Atorvastatin -Continue Zetia #Bipolar/Mental health - stable -Continue Depakote -Continue Olanzapine 5mg po qHS #GERD -Continue Famotidine -Continue Protonix 40mg po daily #Adrenal insufficiency - patient on Hydrocortisone 15mg po qAM and 5mg po daily at 14:00 -Will hold hydrocortisone while patient is on Solumedrol VTE Prophylaxis - add Lovenox 40mg SQ daily Disposition - stable for transfer to med/surg Admission and Anticipated Discharge Date Admission Date: April 04, 2025 Subjective Still having significant shortness of breath on exertion. Does not feel ready for discharge today but planning on tomorrow. Lives with his . Discussed care with pulmonology. Physical Exam Constitutional: WD/WN, vitals as above Respiratory: normal respiratory effort; no respiratory distress (at rest) Auscultation: + wheezes (throughout); no crackles Cardiovascular: Rate/Rhythm: regular rate and regular rhythm Heart Sounds: no murmur Gastrointestinal (Abdomen): normal bowel sounds, soft, nontender, no hepatosplenomegaly Results & Data Results & Data Vital Signs (Past 12 Hours) Vital Signs Temp Pulse Pulse Resp BP BP Pulse Ox 04/07/25 10:18 60 18 98 04/07/25 07:52 36.4 C L 55 L 19 148/71 H 95 04/07/25 07:14 80 18 98 04/07/25 03:00 04/07/25 02:44 59 L 18 97 04/07/25 01:42 36.4 C L 58 L 18 116/83 97 Pulse Ox O2 Del Method O2 Del Method O2 Flow Rate FiO2 04/07/25 10:18 Nasal Cannula 2 04/07/25 07:52 Nasal Cannula 2.0 04/07/25 07:14 Nasal Cannula 2 04/07/25 03:00 98 BiPAP 04/07/25 02:44 28 04/07/25 01:42 BiPAP 28 Laboratory Results Abnormal lab results 04/07/25 Range/Units 07:46 RBC 4.58 L (4.70-6.10) M/uL Hgb 12.9 L (14.0-18.0) g/dl Hct 37.2 L (42.0-52.0) % Neut # (Auto) 8.56 H (1.40-6.50) K/uL Lymph # (Auto) 0.63 L (1.20-3.40) K/uL BUN 37 H (6-23) mg/dl BUN/Creatinine Ratio 44.0 H (10-20) Glucose 123 H (70-99(Fasting)) mg/dl PG Care Time/CCT Total # of Minutes Spent Total Time Spent with Patient: Total time spent is greater than 50% in coordination of care (as documented) at patient's floor/unit and/or counseling patient: Coding Level of Care Code 10186 SUB INP/OBS CARE MIN Diagnoses COPD exacerbation J44.1 BPH (benign prostatic hyperplasia) N40.0 GERD (gastroesophageal reflux disease) K21.9 Hypertension I10 Hyperlipidemia E78.5 Bipolar disorder, unspecified F31.9
[2025-04-07] MEDS: ENOXAPARIN INJ 40 MG/0.4 ML SYR SQ SCH (21:36)
--- NOTE | 2025-04-08 10:36 | Discharge Summary ---
Discharge Summary Date of Service April 08, 2025 Principal Dx & Hospital Course #1 = Principal Diagnosis (1) COPD exacerbation: (2) BPH (benign prostatic hyperplasia): (3) GERD (gastroesophageal reflux disease): (4) Hypertension: (5) Hyperlipidemia: (6) Bipolar disorder, unspecified: Tasneem Thompson is a 69 year old male admitted to [facility] due to shortness of breath. He was diagnosed with COPD exacerbation treated with steroids and nebulizers and doxycycline. He was also covered for possible pneumonia with ceftriaxone with elevated procalcitonin and will be switched to Augmentin on discharge. He slowly improved over several days. He will continue on his usual maintenance inhalers with Symbicort and Spiriva. Please start the prednisone tomorrow. Use your albuterol nebulizer 1st line for shortness of breath or wheezing. Use the saline or Mucomyst nebulizers as needed to help with coughing up sputum. Your carvedilol has been decreased to help your COPD medication work better and due to bradycardia (slow heart rate - in 40s on occasion on telemetry). Consider weaning off this as an outpatient. Admission HPI Per Admitting Provider Wild Thompson is a pleasant 69yo male with history of COPD with emphysema and chronic bronchitis - Gold Class E presently following with [facility] - Dr. Palm as well as [facility] for possible transplant presenting with progressive shortness of breath. Patient has chronic cough and SOB at baseline - reports progressive decline over the last 2 weeks with increased chest tightness and SOB. Has some chills today. He denies fever, purulent sputum. Denies chest pain, palpitations, edema or orthopnea. Patient reports that his present symptoms feel similar to prior episodes of COPD exacerbation but worse than prior No sick contacts or recent travel Upon arrival to the ER patient in respiratory distress, tachypneic with RR in the 40's, hypoxic at 89%. He was trialed on CPAP by EMS but was quite agitated and had difficulty maintaining the mask. In the ER he was given some light sedation with Ketamine and Versed - BiPAP placed and patient able to be tolerated. During my encounter patient with BiPAP in place, appears comfortable. Still with some mild tachypnea and conversational dyspnea. Overall imrpoved ER Course: Magnesium x 2gm Solumedrol 60mg IV + 40mg IV Ketamine 20mg IV Albuterol 2.5mg neb + 12mL neb NSS x 1L Discharge Exam Constitutional WD/WN, vitals as above Respiratory normal respiratory effort; no respiratory distress (at rest) Auscultation: + wheezes (throughout); no crackles Cardiovascular Rate/Rhythm: regular rate and regular rhythm Heart Sounds: no murmur Gastrointestinal (Abdomen) normal bowel sounds, soft, nontender, no hepatosplenomegaly Discharge Plan Discharge Items Patient Disposition: Home - Self-Care Reason For Visit: acute exacerbation copd Discharge Diagnosis: Acute COPD exacerbation Condition on Discharge: Good Activity: Resume your previous activity Non-emergency contact: Longitudinal Float Operator Call non-emergency contact if: you have any medication questions and your symptoms worsen Follow-up/Referrals: Haylee Palm MD, FCCP [Physician] - (Follow up hospitalization) Fanny Clark PA-C [Primary Care Provider] - Diet: Regular Addtl Attending Provider Instructions: You were admitted to [facility] due to shortness of breath. You were diagnosed with COPD exacerbation treated with steroids and nebulizers and doxycycline. You were also covered for possible pneumonia with ceftriaxone and will be switched to Augmentin on discharge. Please take your Symbicort medication when you go home. Please start the prednisone tomorrow. Use your albuterol nebulizer 1st line for shortness of breath or wheezing. Use the saline or Mucomyst nebulizers as needed to help with coughing up sputum. Your carvedilol has been decreased to help your COPD medication work better and due to bradycardia (slow heart rate - in 40s on occasion on telemetry). Consider weaning off this as an outpatient. Pending Studies at Discharge: No Stand-Alone Forms: [facility], Smoking Cessation Medications and DC Order Prescriptions: New carvedilol 6.25 mg tablet 6.25 mg PO BID Qty: 60 0RF Rx Instructions: must administer with a meal/food prednisone 20 mg tablet See Rx Instructions .ROUTE .COMPLEX 6 Days Qty: 8 0RF Rx Instructions: 40 mg orally once daily for 2 days, then 20mg orally once daily for 4 days, then stop sodium chloride 0.9 % solution for nebulization 3 ml inhalation Q12H PRN (Reason: shortness of breath or wheezing) Qty: 90 0RF acetylcysteine 200 mg/mL (20 %) solution 3 ml inhalation BID PRN (Reason: shortness of breath or wheezing) Qty: 30 0RF Continued (DME) Portable Oxygen Misc See Rx Instructions .MEDSUPPLY Qty: 1 0RF Rx Instructions: Oxygen 2 liters continuous via nasal cannula on exertion with portable concentrator. BRISA 99 (DME) Oxygen Home Liters Per Minute See Rx Instructions .Route Qty: 1 0RF Rx Instructions: oxygen 2L continuous via nasal cannula on exertion; test for portability. BRISA 99 calcium carb,[id number] 315-250-200 mg-unit-mg tablet 1 tab PO BID cholecalciferol (vitamin D3) 25 mcg (1,000 unit) tablet 50 mcg PO QAM famotidine 20 mg tablet 20 mg PO QAM pantoprazole 40 mg tablet,delayed release (DR/EC) 40 mg PO QAM albuterol sulfate 90 mcg/actuation HFA aerosol inhaler 2 puff INHALATION Q6H PRN (Reason: Shortness Of Breath) Qty: 8.5 3RF roflumilast 500 mcg tablet 500 mcg PO DAILY Qty: 30 4RF atorvastatin 80 mg Tablet 80 mg PO QAM ferrous sulfate 325 mg (65 mg iron) tablet 325 mg PO Q OTHER DAY clopidogrel [Plavix] 75 mg Tablet 75 mg PO QAM Hold Instructions: HOLDING for IR intervention of diverticular abscess divalproex 250 mg Tablet Extended Release 24 Hr 250 mg PO BID Qty: 60 0RF folic acid 1 mg Tablet 1 mg PO DAILY ezetimibe [Zetia] 10 mg Tablet 10 mg PO HS acetaminophen 325 mg Tablet 325 mg PO DAILY PRN (Reason: INFUSION) amlodipine 10 mg Tablet 5 mg PO DAILY Rx Instructions: TAKE 1/2 TABLET (5MG) ONCE A DAY FOR HTN guaifenesin 600 mg Tablet Extended Release 12hr 600 mg PO Q12H PRN (Reason: Congestion) azithromycin 500 mg Tablet 500 mg PO .3XW/UD Rx Instructions: 04/04/25 : TAKE ONE TABLET EVERY TUESDAY/TUESDAY/ AND TUESDAY FOR COPD olanzapine 10 mg tablet 5 mg PO HS hydrocortisone 5 mg Tablet 5 mg PO .UD Rx Instructions: TAKE THREE TABLETS EVERY AM ( 15MG EVERY MORNING ). hydrocortisone 5 mg Tablet 5 mg PO .DAILY @2PM tamsulosin 0.4 mg Capsule 0.4 mg PO HS teriparatide [Forteo] 20 mcg/dose (560mcg/2.24mL) Pen Injector 20 mcg SUBCUT QAM Discontinued carvedilol 25 mg Tablet 12.5 mg PO BID Rx Instructions: must administer with a meal/food No Action budesonide-formoterol [Symbicort] 160-4.5 mcg/actuation HFA aerosol inhaler 2 puff inhalation BID Qty: 1 0RF tiotropium bromide [Spiriva with HandiHaler] 18 mcg capsule, w/inhalation device 2 cap INHALATION DAILY Qty: 90 0RF albuterol sulfate 2.5 mg/0.5 mL solution for nebulization 5 mg INHALATION Q6H PRN (Reason: Shortness Of Breath Or Wheezing) Qty: 30 6RF Discharge Orders: Discharge Order (Routine); Ordered 04/08/25 Ordered By: Brian Maurice Admission Data Admit Date/Time: 04/04/25 02:11 Attending Provider: Brian Maurice Admit Provider: Kendal Junior Primary Care Provider: Fanny Clark Other Providers: [facility]; Haylee Palm Other Interventions: Discharge Summary Assessment (RN) Last Done: 04/08/25 11:49 Hospital Stay Data Consultations 04/04/25 01:55 ED Decision to Admit Stat 04/04/25 02:11 Consult Pulmonology Routine Pending Results Patient Have Any Pending Studies at Discharge: No Discharge Instructions Given to Patient (Per Discharging Provider) You were admitted to [facility] due to shortness of breath. You were diagnosed with COPD exacerbation treated with steroids and nebulizers and doxycycline. You were also covered for possible pneumonia with ceftriaxone and will be switched to Augmentin on discharge. Please take your Symbicort medication when you go home. Please start the prednisone tomorrow. Use your albuterol nebulizer 1st line for shortness of breath or wheezing. Use the saline or Mucomyst nebulizers as needed to help with coughing up sputum. Your carvedilol has been decreased to help your COPD medication work better and due to bradycardia (slow heart rate - in 40s on occasion on telemetry). Consider weaning off this as an outpatient. Coding Diagnoses COPD exacerbation J44.1 BPH (benign prostatic hyperplasia) N40.0 GERD (gastroesophageal reflux disease) K21.9 Hypertension I10 Hyperlipidemia E78.5 Bipolar disorder, unspecified F31.9
[2025-04-08] MEDS ORDERED: MIDAZOLAM HCL 5 MG/ML 2ML VIAL IV ONE (11:28)
[2025-04-08 11:58] VITALS: BP 134/78; PULSE 67; RESP 19; TEMP 97.9; O2SAT 96
== END 2025-04-08 13:06 | disposition home or self-care (01) | DRG 190 ==
LOC: ED 00:02 → 2S 02:11 → SUATTDRO 02:11 → 2S 03:12